=== PATIENT | male | born 1950 | race African-American/Black ===

== ENCOUNTER 2016-06-03 16:46 | Emergency (ER) | payer MEDICARE ==
--- NOTE | 2016-06-03 17:46 | ER Document Report ---
ED Medical Screen (RME) - General Chief Complaint: Shoulder Pain Stated Complaint: HEADACHE Time seen by provider: 17:40 Mode of Arrival: Wheelchair Information source: Patient Notes: 65 yo male called EMS because he had a 2 sharp electrical sensations behind his right ear and it scared him because he had numbness in his right arm.. As a new defibrillator placed this year May 23. He was wondering if those electrical sensations were due to the defibrillator going off. They checked his blood pressure which was 210/120 and his blood sugar was 425 after he ate jane char, a donut, 2 glasses of sweet tea. The only painthat is bothering him now is his left shoulder due to rotator cuff problems. I have greeted and performed a rapid initial assessment of this patient. A comprehensive ED assessment, evaluation of the patient, analysis of test results , and completion of the medical decision making process will be conducted by additional ED providers. I have consulted with the supervisory physician [facility] Guidelines. dr. newton for CT TRAVEL OUTSIDE OF THE [place] IN LAST 30 DAYS: No - Related Data Allergies/Adverse Reactions: Penicillins Allergy (Intermediate, Verified 01/01/16 12:14) swelling Past Medical History - Past Medical History Cardiac Medical History: Reports: Hx Congestive Heart Failure - Chronic systolic , Hx Hypercholesterolemia, Hx Hypertension Denies: Hx Coronary Artery Disease, Hx Heart Attack Pulmonary Medical History: Denies: Hx Asthma, Hx Bronchitis, Hx COPD, Hx Pneumonia, Hx Tuberculosis Neurological Medical History: Denies: Hx Cerebrovascular Accident, Hx Seizures Endocrine Medical History: Reports: Hx Diabetes Mellitus Type 2 Musculoskeltal Medical History: Denies Hx Arthritis Psychiatric Medical History: Denies: Hx Depression Past Surgical History: Denies: Hx Pacemaker - Immunizations Hx Diphtheria, Pertussis, Tetanus Vaccination: Yes Physical Exam - Vital signs Vitals: Temp Pulse Resp BP Pulse Ox 97.9 F 78 18 154/90 H 99 06/03/16 16:58 06/03/16 16:58 06/03/16 16:58 06/03/16 16:58 06/03/16 16:58 Course - Vital Signs Vital signs: Temp Pulse Resp BP Pulse Ox 97.9 F 78 18 154/90 H 99 06/03/16 16:58 06/03/16 16:58 06/03/16 16:58 06/03/16 16:58 06/03/16 16:58
--- NOTE | 2016-06-03 19:51 | ER Document Report ---
ED Headache - General Chief Complaint: Shoulder Pain Stated Complaint: HEADACHE Time seen by provider: 19:50 Mode of Arrival: Wheelchair Information source: Patient TRAVEL OUTSIDE OF THE [place] IN LAST 30 DAYS: No - HPI Patient complains to provider of: Other - Fleeting sharp right-sided head pain Onset: Just prior to arrival Onset was: Abrupt Timing: Gone now Quality of pain: Sharp, Stabbing Severity: Moderate Pain Level: Denies Similar symptoms previously: No Recently seen / treated by doctor: Yes Notes: Patient is a 65-year-old male presenting to the emergency room for complaints of 2 sharp electric type in pulse episodes of fleeting pain to the right side of his head that occurred around 3:00 this afternoon, patient reports that he recently had an AICD placed in May 23 and was concerned that possibly the pain could be coming from that, he denies feeling any sensation in his chest, no palpitations, no shortness of breath, the symptoms occurred when he was at rest, he denies having had any symptoms like this previously, he denies any nausea, vomiting or diarrhea, no head injury, at time of my evaluation he states he is feeling perfectly fine and wants to go home - Related Data Allergies/Adverse Reactions: Penicillins Allergy (Intermediate, Verified 01/01/16 12:14) swelling Past Medical History - General Information source: Patient - Social History Smoking Status: Unknown if Ever Smoked Family History: Reviewed & Not Pertinent Patient has suicidal ideation: No Patient has homicidal ideation: No - Past Medical History Cardiac Medical History: Reports: Hx Congestive Heart Failure - Chronic systolic , Hx Hypercholesterolemia, Hx Hypertension Denies: Hx Coronary Artery Disease, Hx Heart Attack Pulmonary Medical History: Denies: Hx Asthma, Hx Bronchitis, Hx COPD, Hx Pneumonia, Hx Tuberculosis Neurological Medical History: Denies: Hx Cerebrovascular Accident, Hx Seizures Endocrine Medical History: Reports: Hx Diabetes Mellitus Type 2 Renal/ Medical History: Denies: Hx Peritoneal Dialysis Musculoskeltal Medical History: Denies Hx Arthritis Psychiatric Medical History: Denies: Hx Depression Past Surgical History: Denies: Hx Pacemaker - Immunizations Hx Diphtheria, Pertussis, Tetanus Vaccination: Yes Hx Pneumococcal Vaccination: 01/19/11 Review of Systems - Review of Systems Constitutional: No symptoms reported EENT: No symptoms reported Cardiovascular: No symptoms reported Respiratory: No symptoms reported Gastrointestinal: No symptoms reported Genitourinary: No symptoms reported Male Genitourinary: No symptoms reported Musculoskeletal: See HPI Skin: No symptoms reported Hematologic/Lymphatic: No symptoms reported Neurological/Psychological: No symptoms reported -: Yes All other systems reviewed and negative Physical Exam - Vital signs Vitals: Temp Pulse Resp BP Pulse Ox 97.9 F 78 18 154/90 H 99 06/03/16 16:58 06/03/16 16:58 06/03/16 16:58 06/03/16 16:58 06/03/16 16:58 Interpretation: Normal - General General appearance: Appears well, Alert - HEENT Head: Normocephalic, Atraumatic, Other - No tenderness when palpating over the temporal areas, no reproduction of symptoms when palpating over the trigeminal nerve Eyes: Normal Conjunctiva: Normal Extraocular movements intact: Yes Eyelashes: Normal Pupils: PERRL - Respiratory Respiratory status: No respiratory distress Chest status: Other - AICD in left anterior chest wall with healing incision, Dermabond in place over incision, no drainage, no erythema Breath sounds: Normal Chest palpation: Normal - Cardiovascular Rhythm: Regular Heart sounds: Normal auscultation Murmur: No - Abdominal Inspection: Normal Distension: No distension Bowel sounds: Normal Tenderness: Nontender Organomegaly: No organomegaly - Back Back: Normal, Nontender - Extremities General upper extremity: Normal inspection, Nontender, Normal color, Normal ROM , Normal temperature General lower extremity: Normal inspection, Nontender, Normal color, Normal ROM , Normal temperature, Normal weight bearing. No: Nacho's sign - Neurological Neuro grossly intact: Yes Cognition: Normal Orientation: AAOx4 [place] Coma Scale Eye Opening: Spontaneous [place] Coma Scale Verbal: Oriented Fransisca Coma Scale Motor: Obeys Commands Fransisca Coma Scale Total: 15 Speech: Normal Motor strength normal: LUE, RUE, LLE, RLE Sensory: Normal - Psychological Associated symptoms: Normal affect, Normal mood - Skin Skin Temperature: Warm Skin Moisture: Dry Skin Color: Normal Course - Re-evaluation Re-evalutation: 06/04/16 04:46 Imaging findings were discussed with patient and family members at bedside, they were relieved to hear that there were no acute findings, patient reports feeling much better, his symptoms were fleeting and occurred earlier in the day , he was discharged with instructions to follow-up with his primary care provider, he has a follow up with his mechanic/welder in the morning, advised to keep this appointment or return if symptoms worsen, patient and family members acknowledge understanding and agreement with this plan - Vital Signs Vital signs: Temp Pulse Resp BP Pulse Ox 98.0 F 70 18 132/82 H 98 06/03/16 19:58 06/03/16 19:58 06/03/16 19:58 06/03/16 19:58 06/03/16 19:58 - Diagnostic Test Radiology reviewed: Image reviewed, Reports reviewed Discharge - Discharge Clinical Impression: Headache Qualifiers: Headache type: unspecified Headache chronicity pattern: acute headache Intractability: not intractable Qualified Code(s): R51 - Headache Condition: Stable Disposition: HOME, SELF-CARE Instructions: Headache ([facility]) Additional Instructions: Follow up with your primary care provider and your mechanic/welder in one to 2 days. Return to the emergency room immediately if symptoms worsen or any additional concerns. Referrals: LEXUS GARCIA MD [Primary Care Provider] - Follow up as needed
[2016-06-03 19:59] VITALS: BP 132/82
--- NOTE | 2016-06-03 21:52 | EKG REPORT ---
SEVERITY:- ABNORMAL ECG - SINUS RHYTHM PROBABLE LEFT ATRIAL ABNORMALITY LVH WITH IVCD AND SECONDARY REPOL ABNRM : Confirmed by: Grace Baker 03-Jun-2016 21:52:06
== END 2016-06-03 20:00 | disposition home or self-care (01) ==
LOC: ER 16:46
DX: R51 Headache (principal); I10 Essential (primary) hypertension; E11.9 Type 2 diabetes mellitus without complications; Z98.890 Other specified postprocedural states; Z95.810 Presence of automatic (implantable) cardiac defibrillator; Z88.0 Allergy status to penicillin
CPT/HCPCS: 70450; 71010; 93005; 93010; 99284

== ENCOUNTER 2016-09-12 15:56 | Inpatient (IN) | payer MEDICARE ==
--- NOTE | 2016-09-12 16:32 | ER Document Report ---
ED GI/ - General Mode of Arrival: Ambulatory Information source: Patient, Relative TRAVEL OUTSIDE OF THE [place].S. IN LAST 30 DAYS: No - HPI Patient complains to provider of: Vomiting Onset: Other - x3-4 days Recently seen / treated by doctor: Yes <JOSELIN MONTENEGRO - Last Filed: 09/12/16 16:32> - HPI Quality of pain: No pain <BRITTANI ZAPATA - Last Filed: 09/12/16 18:43> - General Chief Complaint: Altered Mental Status Stated Complaint: ALTERED MENTAL STATUS Time Seen by Provider: 09/12/16 16:01 Notes: Patient is a 66 year old male that presents to the emergency department today with complaints of vomiting and generalized weakness over the last 3-4 days. at bedside states that his urine is "the color of tea". states the patient has not been eating. EMS had a temperature of 101 prior to arrival. states the patient has an outpatient MRI scheduled for tomorrow in [place] secondary to "Nerve III Palsy". (JOSELIN MONTENEGRO) - Related Data Allergies/Adverse Reactions: Penicillins Allergy (Intermediate, Verified 01/01/16 12:14) swelling Past Medical History - General Information source: Patient - Social History Smoking Status: Unknown if Ever Smoked Frequency of alcohol use: None Drug Abuse: None Lives with: Family Family History: Reviewed & Not Pertinent - Past Medical History Cardiac Medical History: Reports: Hx Congestive Heart Failure - Chronic systolic , Hx Hypercholesterolemia, Hx Hypertension Endocrine Medical History: Reports: Hx Diabetes Mellitus Type 2 Surgical Hx: Negative - Immunizations Hx Diphtheria, Pertussis, Tetanus Vaccination: Yes Hx Pneumococcal Vaccination: 01/19/11 <JOSELIN MONTENEGRO - Last Filed: 09/12/16 16:32> Review of Systems - Review of Systems Constitutional: See HPI, Fever, Weakness EENT: No symptoms reported Cardiovascular: No symptoms reported Respiratory: No symptoms reported Gastrointestinal: See HPI, Nausea, Vomiting. denies: Diarrhea Genitourinary: No symptoms reported Male Genitourinary: No symptoms reported Musculoskeletal: No symptoms reported Skin: No symptoms reported Hematologic/Lymphatic: No symptoms reported Neurological/Psychological: No symptoms reported -: Yes All other systems reviewed and negative <JOSELIN MONTENEGRO - Last Filed: 09/12/16 16:32> Physical Exam - Vital signs Interpretation: Hypotensive, Tachypneic - General General appearance: Lethargic In distress: Severe - HEENT Head: Normocephalic, Atraumatic Extraocular movements intact: Yes Eyelashes: Normal Mucous membranes: Dry - Respiratory Respiratory status: Respiratory distress, Labored Breath sounds: Decreased air movement - b/l bases - Cardiovascular Rhythm: Regular - Abdominal Inspection: Normal Distension: No distension Tenderness: Nontender - Rectal Tenderness: No Stool: Black Hemorrhoids: None - Genitourinary Inspection: Normal Tenderness: Nontender Scrotum: Normal - Back Back: Normal, Nontender - Extremities General upper extremity: Normal inspection, Normal ROM General lower extremity: Normal inspection, Normal ROM - Neurological Cognition: Confused Ewing Coma Scale Eye Opening: To Voice Ewing Coma Scale Verbal: Confused [place] Coma Scale Motor: Obeys Commands Fransisca Coma Scale Total: 13 Motor strength normal: LUE, RUE, LLE, RLE - Psychological Associated symptoms: Normal affect - Skin Skin Temperature: Warm Skin Moisture: Dry Skin Color: Normal <BRITTANI ZAPATA - Last Filed: 09/12/16 18:43> - Vital signs Vitals: Resp 18 09/12/16 17:01 Course <JOSELIN MONTENEGRO - Last Filed: 09/12/16 16:32> - Laboratory Result Diagrams: 09/12/16 16:50 09/12/16 16:50 - Diagnostic Test Radiology reviewed: Image reviewed, Reports reviewed - EKG Interpretation by Tx EKG shows normal: Sinus rhythm Rate: Normal Rhythm: NSR - Consults Dr. Torres Consulted provider: will see as inpatient <BRITTANI ZAPATA - Last Filed: 09/12/16 18:43> - Re-evaluation Re-evalutation: 09/12/16 18:29 Patient is a 66-year-old male who comes in with altered mental status, hypotension, vomiting for the last 3 days, dark urine. Patient is anemic compared to his last set of blood work. states that vomitus was coffee- ground for the last day. Hemoccult was sent and it is positive. Patient was discussed with Dr. torres who will be able to scope the patient tomorrow. More concerning, the patient is in acute renal failure likely due to dehydration. He has a Sullivan catheter in place and he is producing urine. Patient does not have any abdominal pain or tenderness at this time. His abdomen is soft. CT abdomen and pelvis is not showing any acute findings. CT chest however is showing probable bilateral opacities in his bases. Antibiotics have been ordered and cultures have been sent. Patient has been fluid resuscitated here in the emergency department. Her tonics have been given. Patient has been typed and crossed. Patient will be admitted to the ICU under the hospitalist service. agrees with this plan. Mentation is improved at this time. No acute findings on head CT. No acute findings on neurologic exam. (BRITTANI ZAPATA) - Vital Signs Vital signs: Temp Pulse Resp BP Pulse Ox 23 H 112/62 100 09/12/16 18:31 09/12/16 18:31 09/12/16 18:31 - Laboratory Laboratory results interpreted by me: 09/12/16 09/12/16 09/12/16 16:50 16:50 16:50 WBC 14.5 H RBC 3.01 L Hgb 8.7 L Hct 25.8 L Plt Count 125 L Seg Neuts % (Manual) 84 H Band Neutrophils % 2 L Lymphocytes % (Manual) 7 L Abs Neuts (Manual) 12.5 H PT 16.1 H Sodium 130.0 L Chloride 96 L Carbon Dioxide 17 L BUN 110 H Creatinine 4.82 H Est GFR ( Amer) 15 L Est GFR (Non-Af Amer) 12 L Glucose 334 H Lactic Acid Calcium 8.1 L Direct Bilirubin 0.9 H AST 101 H Total Protein 5.9 L Albumin 2.9 L Urine Protein Urine Blood 09/12/16 09/12/16 16:50 17:05 WBC RBC Hgb Hct Plt Count Seg Neuts % (Manual) Band Neutrophils % Lymphocytes % (Manual) Abs Neuts (Manual) PT Sodium Chloride Carbon Dioxide BUN Creatinine Est GFR ( Amer) Est GFR (Non-Af Amer) Glucose Lactic Acid 2.3 H Calcium Direct Bilirubin AST Total Protein Albumin Urine Protein 100 H Urine Blood SMALL H - EKG Interpretation by Me Additional EKG results interpreted by me: 09/12/16 18:42 prolonged QTc (BRITTANI ZAPATA) - Transfer of Care Notes: 09/12/16 18:06 will admit (BRITTANI ZAPATA) Critical Care Note - Critical Care Note Total time excluding time spent on procedures (mins): 120 - Evaluation and management of altered mental status, hypotension, bilateral pneumonia, coordination specialist, coordination of admission, counseling patient and family, multiple re-evaluations <BRITTANI ZAPATA - Last Filed: 09/12/16 18:43> Discharge <JOSELIN MONTENEGRO - Last Filed: 09/12/16 16:32> - Discharge Admitting Provider: Hospitalist - [facility] Admitted: ICU <BRITTANI ZAPATA - Last Filed: 09/12/16 18:43> - Discharge Clinical Impression: Coffee ground emesis, Dehydration, SIRS (systemic inflammatory response syndrome) Acute renal failure Qualifiers: Acute renal failure type: unspecified Qualified Code(s): N17.9 - Acute kidney failure, unspecified Hypotension Qualifiers: Hypotension type: unspecified hypotension type Qualified Code(s): I95.9 - Hypotension, unspecified Pneumonia Qualifiers: Pneumonia type: due to unspecified organism Laterality: bilateral Lung location : lower lobe of lung Qualified Code(s): J18.9 - Pneumonia, unspecified organism Condition: Fair Disposition: ADMITTED INPATIENT Referrals: LEXUS GARCIA MD [EMERITUS] - Follow up as needed Scribe Attestation: 09/12/16 18:42 I personally performed the services described in the documentation, reviewed and edited the documentation which was dictated to the scribe in my presence, and it accurately records my words and actions. (BRITTANI ZAPATA) Scribe Documentation - Scribe Written by Annalee:: Annalee Bonilla, 09/12/16 1631 acting as scribe for :: Devante <JOSELIN MONTENEGRO - Last Filed: 09/12/16 16:32>
[2016-09-12] MEDS ORDERED: NORMAL SALINE 1000 ML 1,000 ML IV ONE (16:33)
[2016-09-12] MEDS ORDERED: ONDANSETRON HCL INJ/PF 4 MG/2 ML SDV IV ONE (16:33)
--- NOTE | 2016-09-12 16:50 | RADIOLOGY REPORT (SQ) ---
EXAM DESCRIPTION: CHEST SINGLE VIEW COMPLETED DATE/TIME: 09/12/2016 4:35 pm REASON FOR STUDY: AMS COMPARISON: 06/03/2016 EXAM PARAMETERS: NUMBER OF VIEWS: One view. TECHNIQUE: Single frontal radiographic view of the chest acquired. RADIATION DOSE: NA LIMITATIONS: None. FINDINGS: LUNGS AND PLEURA: No opacities, masses or pneumothorax. No pleural effusion. MEDIASTINUM AND HILAR STRUCTURES: No masses. Contour normal. HEART AND VASCULAR STRUCTURES: Heart normal in size. Normal vasculature. BONES: No acute findings. HARDWARE: Cardiac hardware unchanged. OTHER: No other significant finding. IMPRESSION: NO ACUTE RADIOGRAPHIC FINDING IN THE CHEST. TECHNICAL DOCUMENTATION: JOB ID: [id number]
[2016-09-12] MEDS ORDERED: LIDOCAINE 2% URO-JET 5 ML KIT MM ONE (17:01)
[2016-09-12 17:15] LABS: HEMATOCRIT 25.8 % (37.9-51.0); HEMOGLOBIN 8.7 g/dL (13.5-17.0); HGB HCT DIFFERENCE 0.3; MEAN CORPUSCULAR HEMOGLOBIN 28.9 pg (27.0-33.4); MEAN CORPUSCULAR HGB CONC 33.7 g/dL (32.0-36.0); MEAN CORPUSCULAR VOLUME 86 fl (80-97); RED BLOOD COUNT 3.01 10^6/uL (4.35-5.55); RED CELL DISTRIBUTION WIDTH 13.9 % (11.5-14.0); WHITE BLOOD COUNT 14.5 10^3/uL (4.0-10.5)
[2016-09-12 17:27] LABS: PROTHROMBIN TIME 16.1 SEC (11.4-15.4)
[2016-09-12 17:33] LABS: ALANINE AMINOTRANSFERASE 62 U/L (21-72); ALBUMIN 2.9 g/dL (3.5-5.0); ALKALINE PHOSPHATASE 113 U/L (38-126); ANION GAP 17 (5-19); ASPARTATE AMINO TRANSFERASE 101 U/L (17-59); BILIRUBIN,DIRECT 0.9 mg/dL (0.0-0.4); BILIRUBIN,TOTAL 1.2 mg/dL (0.2-1.3); BLOOD UREA NITROGEN 110 mg/dL (7-20); CALCIUM 8.1 mg/dL (8.4-10.2); CARBON DIOXIDE 17 mmol/L (22-30); CHLORIDE 96 mmol/L (98-107); CREATININE RESULT 4.82 mg/dL (0.52-1.25); GLUCOSE 334 mg/dL (75-110); POTASSIUM 3.8 mmol/L (3.6-5.0); TOTAL PROTEIN 5.9 g/dL (6.3-8.2)
[2016-09-12 17:37] LABS: BAND NEUTROPHILS % (MANUAL) 2 % (3-5); BASOPHILS % (MANUAL) 0 % (0-2); EOSINOPHILS % (MANUAL) 0 % (0-6); LYMPHOCYTES % (MANUAL) 7 % (13-45); TOTAL CELLS COUNTED 100
[2016-09-12 17:39] LABS: PLATELET CLUMPS PRESENT; POLYCHROMASIA SLIGHT; TOXIC GRANULATION SLIGHT; TOXIC VACUOLATION PRESENT
[2016-09-12 17:43] LABS: AMORPHOUS SEDIMENT,URINE TRACE /HPF; APPEARANCE,URINE SLIGHTLY-CLOUDY; BILIRUBIN,URINE NEGATIVE (NEGATIVE); GLUCOSE, URINE NEGATIVE (NEGATIVE); KETONES,URINE NEGATIVE (NEGATIVE); LEUKOCYTE ESTERASE,URINE NEGATIVE (NEGATIVE); NITRITE,URINE NEGATIVE (NEGATIVE); PROTEIN,URINE 100 mg/dL (NEGATIVE); URINE SPECIFIC GRAVITY 1.011; UROBILINOGEN,URINE NEGATIVE mg/dL (<2.0)
[2016-09-12] MEDS ORDERED: RINGERS SOLUTION,LACTATED 1,000 ML IV ONE (17:45)
--- NOTE | 2016-09-12 17:59 | RADIOLOGY REPORT (SQ) ---
EXAM DESCRIPTION: CT HEAD WITHOUT COMPLETED DATE/TIME: 09/12/2016 5:40 pm REASON FOR STUDY: AMS COMPARISON: 06/03/2016 TECHNIQUE: Axial images acquired through the brain without intravenous contrast. Images reviewed wi th bone, brain and subdural windows. Images stored on PACS. All CT scanners at this facility use dose modulation, iterative reconstruction, and/or weight based d osing when appropriate to reduce radiation dose to as low as reasonably achievable (ALARA). [facility]: Dose Right [facility]: CareDose [facility]: Dose Right [facility]: Teradose 4D [facility]: [employer] RADIATION DOSE: 129.22 mGy. LIMITATIONS: None. FINDINGS: VENTRICLES: Normal size and contour. CEREBRUM: No masses. No hemorrhage. No midline shift. Normal aguilar/white matter differentiation. N o evidence for acute infarction. There is an area of decreased attenuation in the occipital white ma tter on the right. This is unchanged from a study of 06/03/2016. CEREBELLUM: No masses. No hemorrhage. No alteration of density. No evidence for acute infarction. EXTRAAXIAL SPACES: No fluid collections. No masses. ORBITS AND GLOBE: No intra- or extraconal masses. Normal contour of globe without masses. CALVARIUM: No fracture. PARANASAL SINUSES: No fluid or mucosal thickening. SOFT TISSUES: No mass or hematoma. OTHER: No other significant finding. IMPRESSION: There is evidence of chronic microvascular ischemic change characterized by a decreased attenuation in the white matter of the right occipital lobe. There is no significant interval change . No acute intracranial pathology is seen. TECHNICAL DOCUMENTATION: JOB ID: [id number] 06/03/2016 Quality ID # [id number]: Final reports with documentation of one or more dose reduction techniques (e.g., Au tomated exposure control, adjustment of the mA and/or kV according to patient size, use of iterative reconstruction technique) 2010 [employer]- All Rights Reserved
[2016-09-12] MEDS ORDERED: PANTOPRAZOLE SODIUM 40 MG VIAL IV ONE (18:03)
--- NOTE | 2016-09-12 18:07 | RADIOLOGY REPORT (SQ) ---
EXAM DESCRIPTION: CT CHEST WITHOUT COMPLETED DATE/TIME: 09/12/2016 5:39 pm REASON FOR STUDY: fever, pain , n/v COMPARISON: 01/16/2014 TECHNIQUE: CT scan performed of the chest without intravenous contrast. Images reviewed with lung, soft tissue and bone windows. Reconstructed coronal and sagittal MPR images reviewed. All images st ored on PACS. All CT scanners at this facility use dose modulation, iterative reconstruction, and/or weight based d osing when appropriate to reduce radiation dose to as low as reasonably achievable (ALARA). [facility]: Dose Right [facility]: CareDose [facility]: Dose Right [facility]: Teradose 4D [facility]: [employer] RADIATION DOSE: 10.00 mGy. LIMITATIONS: No technical limitations. FINDINGS: LUNGS AND PLEURA: There is ground-glass opacification in both lower lobes. No masses are present. There is no pleural effusion. HILAR AND MEDIASTINAL STRUCTURES: No identified masses or abnormal nodes. No obvious aneurysm. HEART AND VASCULAR STRUCTURES: There is a small pericardial effusion. This measures 8 mm in depth an teriorly on image 42. UPPER ABDOMEN: See separate report of the CT of the abdomen. THYROID AND OTHER SOFT TISSUES: No masses. No adenopathy. BONES: Degenerative disc changes and spondylosis are seen in the lumbar spine from L2-L4. HARDWARE: Pacemaker. OTHER: No other significant findings. IMPRESSION: 1. There is ground-glass opacification in both lower lobes suggestive of bilateral pneu monitis. 2. Degenerative disc changes and spondylosis in the lower lumbar spine. 3. There is a small pericardial effusion. TECHNICAL DOCUMENTATION: JOB ID: [id number] Quality ID # [id number]: Final reports with documentation of one or more dose reduction techniques (e.g., Au tomated exposure control, adjustment of the mA and/or kV according to patient size, use of iterative reconstruction technique) 2010 [employer]- All Rights Reserved
[2016-09-12] MEDS ORDERED: LEVOFLOXACIN 750 MG/D5W RTU 150 ML IV ONE (18:10)
[2016-09-12] MEDS ORDERED: CEFEPIME 2 GM/D5W RTU 50 ML IV ONE (18:10)
--- NOTE | 2016-09-12 18:15 | RADIOLOGY REPORT (SQ) ---
EXAM DESCRIPTION: CT ABD/PELVIS NO ORAL OR IV COMPLETED DATE/TIME: 09/12/2016 5:40 pm REASON FOR STUDY: fever, pain , n/v COMPARISON: None. TECHNIQUE: CT scan of the abdomen and pelvis performed without intravenous or oral contrast. Images reviewed with lung, soft tissue, and bone windows. Reconstructed coronal and sagittal MPR images revi ewed. All images stored on PACS. All CT scanners at this facility use dose modulation, iterative reconstruction, and/or weight based d osing when appropriate to reduce radiation dose to as low as reasonably achievable (ALARA). [facility]: Dose Right [facility]: CareDose [facility]: Dose Right [facility]: Teradose 4D [facility]: [employer] RADIATION DOSE: 3.82mGy. LIMITATIONS: None. FINDINGS: LOWER CHEST: See separate report of the CT of the chest. NON-CONTRASTED LIVER, SPLEEN, ADRENALS: Evaluation limited by lack of IV contrast. No identified sign ificant masses. PANCREAS: No masses. No peripancreatic inflammatory changes. GALLBLADDER: Not identified. There is no ductal dilatation. RIGHT KIDNEY AND URETER: No suspicious masses. Assessment limited by lack of IV contrast. No signif icant calcifications. No hydronephrosis or hydroureter. LEFT KIDNEY AND URETER: No suspicious masses. Assessment limited by lack of IV contrast. No signifi cant calcifications. No hydronephrosis or hydroureter. AORTA AND RETROPERITONEUM: No aneurysm. No retroperitoneal masses or adenopathy. BOWEL AND PERITONEAL CAVITY: There are occasional sigmoid diverticula with no associated inflammatory changes. APPENDIX: Normal. PELVIS, BLADDER, AND ABDOMINAL WALL:A catheter is present. The urinary bladder cannot be evaluated. There is no free fluid in the pelvis. There is stool in the rectum. BONES: Lumbar degenerative changes. OTHER: No other significant finding. IMPRESSION: 1. Mild diverticulosis coli with no acute inflammatory changes. 2. Lumbar degenerative changes. TECHNICAL DOCUMENTATION: JOB ID: [id number] Quality ID # [id number]: Final reports with documentation of one or more dose reduction techniques (e.g., Au tomated exposure control, adjustment of the mA and/or kV according to patient size, use of iterative reconstruction technique) 2010 [employer]- All Rights Reserved
[2016-09-12] MEDS ORDERED: ACETAMINOPHEN 325 MG TABLET PO PRN (18:29)
[2016-09-12] MEDS ORDERED: ALBUTEROL SULFATE 0.083% NEB 2.5 MG/3 ML AMPUL NEB PRN (18:29)
[2016-09-12] MEDS ORDERED: ONDANSETRON 4 MG TAB.RAPDIS PO PRN (18:29)
[2016-09-12] MEDS ORDERED: ONDANSETRON HCL INJ/PF 4 MG/2 ML SDV IV PRN (18:29)
[2016-09-12] MEDS ORDERED: NORMAL SALINE 1000 ML 1,000 ML IV PRN (18:29)
[2016-09-12 18:35] LABS: URINE BARBITURATES SCREEN NEGATIVE; URINE METHADONE SCREEN NEGATIVE; URINE OPIATES LOW NEGATIVE; URINE PHENCYCLIDINE SCREEN NEGATIVE
[2016-09-12] MEDS ORDERED: DEXTROSE 50%-WATER 25 GM/50 ML DISP.SYRIN IV PRN ×2 (18:36)
[2016-09-12] MEDS ORDERED: GLUCAGON,HUMAN RECOMB 1 MG INJ IM PRN (18:36)
[2016-09-12] MEDS ORDERED: DEXTROSE 40% GEL 15 GM TUBE PO PRN ×2 (18:36)
[2016-09-12 18:44] LABS: CREATINE KINASE MB 3.35 ng/mL (<4.55)
--- NOTE | 2016-09-12 18:45 | EKG REPORT ---
SEVERITY:- ABNORMAL ECG - SINUS RHYTHM PROBABLE LEFT ATRIAL ABNORMALITY LEFT VENTRICULAR HYPERTROPHY PROLONGED QT INTERVAL : Confirmed by: Yo Foss MD 12-Sep-2016 18:44:08
[2016-09-12 18:47] LABS: TROPONIN I 0.093 ng/mL
--- NOTE | 2016-09-12 18:53 | PDOC H&P ---
History of Present Illness Admission Date/PCP: HYACINTH WELLS MD Patient complains of: Nausea and vomiting since Friday. History of Present Illness: FLAG MORELIA THIBODEAUX is a 66 year old male history of diabetes, systolic congestive heart failure who presents with a four-day history of nausea and vomiting. Patient reports that he began having some epigastric pain and started vomiting on Friday. Patient has had worsening weakness and has had a cough productive of yellow sputum. Patient was found on laboratory work to have acute renal failure, pneumonia and dehydration. The patient denies having any chest pain. He does have a history of systolic congestive heart failure and has a defibrillator in place. The patient has had problems with left 3rd nerve palsy and was scheduled to get an MRI done however he had to go to because of his pacemaker. The patient has had difficulty tolerating any food and his blood sugars have been elevated. He also does have a history of esophagitis but denies using any nonsteroidals. The only he is taken for pain is his Tylenol. His sister who is his caregiver is at the bedside. The patient denies any lower extremity edema. He denies any orthopnea or PND. Past Medical History Cardiac Medical History: Reports: Congestive Heart Failure - Chronic systolic, Hyperlipidema, Hypertension Pulmonary Medical History: Reports: None EENT Medical History: Reports: Other - Diabetic retinopathy Neurological Medical History: Reports: Other - Currently diagnosed with left 3rd nerve palsy. Also has peripheral neuropathy Endocrine Medical History: Reports: Diabetes Mellitus Type 2 Malignancy Medical History: Reports: None GI Medical History: Reports: Gastroesophageal Reflux Disease Musculoskeltal Medical History: Reports: Arthritis Skin Medical History: Reports: None Psychiatric Medical History: Reports: None Traumatic Medical History: Reports: None Hematology: Denies: Anemia Infectious Medical History: Reports: Methicillin-Resistant Staph Aureus Past Surgical History Past Surgical History: Reports: Internal Defibrillator Social History Information Source: Patient Lives with: Family Smoking Status: Current Every Day Smoker Frequency of Alcohol Use: None Hx Recreational Drug Use: No Drugs: None Hx Prescription Drug Abuse: No - Advance Directive Resuscitation Status: Full Code Surrogate healthcare decision maker:: Daughter has healthcare power of attorney lawyer however his sister lives locally and makes most of his healthcare decisions. Family History Family History: Father in his 60s from complications of cirrhosis. Mother at age 72 and had diabetes and hypertension. Parental Family History Reviewed: Yes Children Family History Reviewed: No Sibling(s) Family History Reviewed.: No Medication/Allergy Allergies/Adverse Reactions: Penicillins Allergy (Intermediate, Verified 01/01/16 12:14) swelling Review of Systems Constitutional: PRESENT: chills, fatigue, fever(s), weakness, weight loss. ABSENT: night sweats Eyes: PRESENT: visual disturbances - Recently diagnosed with left 3rd nerve palsy. Cardiovascular: ABSENT: chest pain, dyspnea on exertion, edema, orthropnea, palpitations Respiratory: PRESENT: cough, dyspnea, sputum. ABSENT: hemoptysis Gastrointestinal: PRESENT: abdominal pain - Right lower quadrant abdominal pain. , nausea, vomiting. ABSENT: hematemesis Genitourinary: PRESENT: difficulty urinating Musculoskeletal: PRESENT: muscle weakness Integumentary: PRESENT: other - Diabetic foot ulcers on his bilateral feet. Neurological: PRESENT: other - Recent left 3rd nerve palsy Psychiatric: ABSENT: anxiety, depression Endocrine: ABSENT: cold intolerance, heat intolerance, polydipsia, polyuria Hematologic/Lymphatic: ABSENT: easy bleeding, easy bruising Physical Exam Vital Signs: Temp Pulse Resp BP Pulse Ox 23 H 112/62 100 09/12/16 18:31 09/12/16 18:31 09/12/16 18:31 Intake & Output 09/11/16 09/12/16 09/13/16 06:59 06:59 06:59 Weight 83.915 kg General appearance: PRESENT: mild distress Head exam: PRESENT: atraumatic, normocephalic Eye exam: PRESENT: conjunctiva pink, EOMI, PERRLA. ABSENT: scleral icterus Ear exam: PRESENT: normal external ear exam Mouth exam: PRESENT: dry mucosa, tongue midline Neck exam: ABSENT: carotid bruit, JVD, lymphadenopathy, thyromegaly Respiratory exam: PRESENT: rhonchi - Rhonchi bilaterally.. ABSENT: rales, wheezes Cardiovascular exam: PRESENT: RRR. ABSENT: diastolic murmur, rubs, systolic murmur Pulses: PRESENT: other - Decreased peripheral pulses in the feet. Vascular exam: PRESENT: normal capillary refill GI/Abdominal exam: PRESENT: normal bowel sounds, soft. ABSENT: distended, guarding, mass, organolmegaly, rebound, tenderness Rectal exam: PRESENT: heme (+) stool Extremities exam: ABSENT: calf tenderness, clubbing, pedal edema Neurological exam: PRESENT: awake, oriented to person, oriented to place, oriented to time, CN II-XII grossly intact, motor sensory deficit. ABSENT: oriented to situation Psychiatric exam: PRESENT: other - Patient slightly confused but can reorient. Skin exam: PRESENT: other - Shallow ulcers on the bilateral feet left worse than the right Results Laboratory Results: 09/12/16 16:50 09/12/16 16:50 09/12/16 09/12/16 09/12/16 16:50 16:50 16:50 WBC 14.5 H RBC 3.01 L Hgb 8.7 L Hct 25.8 L MCV 86 MCH 28.9 MCHC 33.7 RDW 13.9 Plt Count 125 L Seg Neutrophils % Not Reportable Lymphocytes % Not Reportable Monocytes % Not Reportable Eosinophils % Not Reportable Basophils % Not Reportable Absolute Neutrophils Not Reportable Absolute Lymphocytes Not Reportable Absolute Monocytes Not Reportable Absolute Eosinophils Not Reportable Absolute Basophils Not Reportable Sodium 130.0 L Potassium 3.8 Chloride 96 L Carbon Dioxide 17 L Anion Gap 17 BUN 110 H Creatinine 4.82 H Est GFR ( Amer) 15 L Est GFR (Non-Af Amer) 12 L Glucose 334 H Lactic Acid 2.3 H Calcium 8.1 L Total Bilirubin 1.2 AST 101 H ALT 62 Alkaline Phosphatase 113 Total Protein 5.9 L Albumin 2.9 L Urine Color Urine Appearance Urine pH Ur Specific [place] Urine Protein Urine Glucose (UA) Urine Ketones Urine Blood Urine Nitrite Ur Leukocyte Esterase Urine WBC (Auto) Urine RBC (Auto) Stool Occult Blood 09/12/16 09/12/16 17:05 17:50 WBC RBC Hgb Hct MCV MCH MCHC RDW Plt Count Seg Neutrophils % Lymphocytes % Monocytes % Eosinophils % Basophils % Absolute Neutrophils Absolute Lymphocytes Absolute Monocytes Absolute Eosinophils Absolute Basophils Sodium Potassium Chloride Carbon Dioxide Anion Gap BUN Creatinine Est GFR ( Amer) Est GFR (Non-Af Amer) Glucose Lactic Acid Calcium Total Bilirubin AST ALT Alkaline Phosphatase Total Protein Albumin Urine Color YELLOW Urine Appearance SLIGHTLY-CLOUDY Urine pH 5.0 Ur Specific [place] 1.011 Urine Protein 100 H Urine Glucose (UA) NEGATIVE Urine Ketones NEGATIVE Urine Blood SMALL H Urine Nitrite NEGATIVE Ur Leukocyte Esterase NEGATIVE Urine WBC (Auto) 1 Urine RBC (Auto) 5 Stool Occult Blood POSITIVE Impressions: Chest X-Ray 09/12/16 16:02 IMPRESSION: NO ACUTE RADIOGRAPHIC FINDING IN THE CHEST. Abdomen/Pelvis CT 09/12/16 16:25 IMPRESSION: 1. Mild diverticulosis coli with no acute inflammatory changes. 2. Lumbar degenerative changes. Chest CT 09/12/16 16:25 IMPRESSION: 1. There is ground-glass opacification in both lower lobes suggestive of bilateral pneumonitis. 2. Degenerative disc changes and spondylosis in the lower lumbar spine. 3. There is a small pericardial effusion. Head CT 09/12/16 16:33 IMPRESSION: There is evidence of chronic microvascular ischemic change characterized by a decreased attenuation in the white matter of the right occipital lobe. There is no significant interval change. No acute intracranial pathology is seen. Assessment & Plan - Diagnosis (1) SIRS (systemic inflammatory response syndrome) Is this a current diagnosis for this admission?: YesPlan: Likely secondary to his underlying pneumonia. He did have an episode of hypotension that did resolve with fluids. (2) Pneumonia Qualifiers: Pneumonia type: due to unspecified organism Laterality: bilateral Lung location: lower lobe of lung Qualified Code(s): J18.9 - Pneumonia, unspecified organism Is this a current diagnosis for this admission?: YesPlan: Patient has bilateral pneumonia on chest x-ray. Will treat with cefepime. (3) Acute renal failure Qualifiers: Acute renal failure type: unspecified Qualified Code(s): N17.9 - Acute kidney failure, unspecified Is this a current diagnosis for this admission?: YesPlan: Patient has an elevated creatinine secondary to his nausea vomiting and dehydration. Will give IV fluids and monitor closely. (4) Dehydration Is this a current diagnosis for this admission?: YesPlan: Secondary to his GI symptoms. Will give IV Reglan, IV fluids, and ask surgery to evaluate for possible EGD in the morning if he does not improve. (5) Diabetes Is this a current diagnosis for this admission?: YesPlan: We will cover with sliding scale insulin. (6) Congestive heart failure Is this a current diagnosis for this admission?: YesPlan: Patient has chronic systolic congestive heart failure. He has had a defibrillator placed by [facility] (7) Peripheral neuropathy Is this a current diagnosis for this admission?: Yes (8) Hyperlipidemia Is this a current diagnosis for this admission?: Yes (9) Coffee ground emesis Is this a current diagnosis for this admission?: YesPlan: Most likely secondary to esophagitis or gastritis. Will give IV Protonix and ask surgery to evaluate for an EGD tomorrow if he continues to have symptoms. (10) Hypotension Qualifiers: Hypotension type: unspecified hypotension type Qualified Code(s): I95.9 - Hypotension, unspecified Is this a current diagnosis for this admission?: YesPlan: This has resolved with IV fluids. (11) Rhabdomyolysis Qualifiers: Rhabdomyolysis type: non-traumatic Qualified Code(s): M62.82 - Rhabdomyolysis Is this a current diagnosis for this admission?: YesPlan: Patient has elevated creatine kinase and will give IV fluids and monitor. (12) HTN (hypertension) Is this a current diagnosis for this admission?: YesPlan: We will hold his antihypertensives until his blood pressure improves with fluids. - Time Time Spent: 50 to 70 Minutes - Inpatient Certification Medical Necessity: Need For IV Fluids, Need for IV Antibiotics - Plan Summary Plan Summary: Admit to the [facility] unit as the patient is anticipated to require greater than 2 midnight stay because of his need for IV fluids and IV antibiotics. Request to be a full code.
[2016-09-12 18:58] LABS: VENOUS BLOOD BASE EXCESS -4.2 mmol/L; VENOUS BLOOD HCO3 19.3 mmol/L (20-32); VENOUS BLOOD PCO2 31.8 mmHg (35-63); VENOUS BLOOD PH 7.4 (7.30-7.42)
[2016-09-12] MEDS: PANTOPRAZOLE SODIUM 40 MG VIAL IV PRN (20:07)
[2016-09-13] MEDS: METOCLOPRAMIDE HCL INJ/PF 10 MG/2 ML SDV IV SCH ×4 (00:40→21:23)
[2016-09-13] MEDS: INSULIN LISPRO 100 UNIT/ML 3 ML VIAL SUBCUT PRN ×2 (00:41→19:21)
[2016-09-13] MEDS: PANTOPRAZOLE SODIUM 40 MG VIAL IV SCH ×3 (00:42→21:23)
[2016-09-13 05:00] LABS: HEMOGLOBIN 8.2 g/dL (13.5-17.0); HGB HCT DIFFERENCE 0.6; MEAN CORPUSCULAR HEMOGLOBIN 29.3 pg (27.0-33.4); MEAN CORPUSCULAR HGB CONC 34.3 g/dL (32.0-36.0); MEAN CORPUSCULAR VOLUME 85 fl (80-97); RED BLOOD COUNT 2.81 10^6/uL (4.35-5.55); RED CELL DISTRIBUTION WIDTH 13.7 % (11.5-14.0); WHITE BLOOD COUNT 12.3 10^3/uL (4.0-10.5)
[2016-09-13 05:32] LABS: ANION GAP 11 (5-19); BLOOD UREA NITROGEN 112 mg/dL (7-20); CALCIUM 7.6 mg/dL (8.4-10.2); CARBON DIOXIDE 20 mmol/L (22-30); CHLORIDE 101 mmol/L (98-107); CREATININE RESULT 4.63 mg/dL (0.52-1.25); GLUCOSE 190 mg/dL (75-110); POTASSIUM 3.8 mmol/L (3.6-5.0); SODIUM 132.4 mmol/L (137-145)
[2016-09-13] MEDS: PANTOPRAZOLE SODIUM 40 MG VIAL IV PRN (05:32)
[2016-09-13 05:45] LABS: CREATINE KINASE 2696 U/L (55-170)
[2016-09-13] MEDS ORDERED: VANCOMYCIN HCL 0 MG in DEXTROSE 5%-WATER 250 ML IV NR (07:15)
[2016-09-13] MEDS ORDERED: CEFEPIME HCL 1 GM in DEXTROSE 5%-WATER 50 ML IV SCH (10:00)
[2016-09-13] MEDS ORDERED: CEFEPIME 1 GM/D5W RTU 1 GM/50 ML RTUPB IV SCH (10:00)
--- NOTE | 2016-09-13 10:18 | PDOC PROGRESS REPORT ---
Subjective Progress Note for:: 09/13/16 Subjective:: Insert bilateral shoulder pain. Patient was noted to have gram-positive cocci growing from blood cultures. Physical Exam Vital Signs: Temp Pulse Resp BP Pulse Ox 99.7 F 73 18 99/52 L 95 09/13/16 07:49 09/13/16 08:19 09/13/16 08:19 09/13/16 07:49 09/13/16 08:19 Intake & Output 09/12/16 09/13/16 09/14/16 06:59 06:59 06:59 Intake Total 1390 Output Total 325 Balance 1065 Weight 88.5 kg General appearance: PRESENT: no acute distress Eye exam: PRESENT: conjunctiva pink. ABSENT: scleral icterus Mouth exam: PRESENT: dry mucosa, tongue midline Neck exam: ABSENT: JVD Respiratory exam: PRESENT: rhonchi - Rhonchi bilaterally. ABSENT: rales, wheezes Cardiovascular exam: PRESENT: RRR. ABSENT: diastolic murmur, rubs, systolic murmur GI/Abdominal exam: PRESENT: normal bowel sounds, soft. ABSENT: distended, guarding, mass, organolmegaly, rebound, tenderness Extremities exam: PRESENT: other - There is on bilateral feet. ABSENT: calf tenderness, clubbing, pedal edema Neurological exam: PRESENT: alert, awake, oriented to person, oriented to place , oriented to time, oriented to situation, CN II-XII grossly intact. ABSENT: motor sensory deficit Psychiatric exam: PRESENT: flat affect Skin exam: PRESENT: other - Ulcers on bilateral feet. Results Laboratory Results: 09/13/16 04:04 09/13/16 04:04 09/12/16 09/12/16 09/12/16 18:44 18:44 19:30 WBC RBC Hgb Hct MCV MCH MCHC RDW Plt Count VBG pH 7.40 VBG pCO2 31.8 L VBG HCO3 19.3 L VBG Base Excess -4.2 Sodium Potassium Chloride Carbon Dioxide Anion Gap BUN Creatinine Est GFR ( Amer) Est GFR (Non-Af Amer) Glucose Lactic Acid Calcium Magnesium Blood Type Cancelled B POSITIVE Antibody Screen Cancelled NEGATIVE 09/12/16 09/13/16 09/13/16 21:25 04:04 04:04 WBC 12.3 H RBC 2.81 L Hgb 8.2 L Hct 24.0 L MCV 85 MCH 29.3 MCHC 34.3 RDW 13.7 Plt Count 121 L VBG pH VBG pCO2 VBG HCO3 VBG Base Excess Sodium 132.4 L Potassium 3.8 Chloride 101 Carbon Dioxide 20 L Anion Gap 11 BUN 112 H Creatinine 4.63 H Est GFR ( Amer) 16 L Est GFR (Non-Af Amer) 13 L Glucose 190 H Lactic Acid 1.3 Calcium 7.6 L Magnesium 2.0 Blood Type Antibody Screen 09/13/16 09/13/16 04:04 04:04 Creatine Kinase 2696 H CK-MB (CK-2) 5.67 H Impressions: Chest X-Ray 09/12/16 16:02 IMPRESSION: NO ACUTE RADIOGRAPHIC FINDING IN THE CHEST. Abdomen/Pelvis CT 09/12/16 16:25 IMPRESSION: 1. Mild diverticulosis coli with no acute inflammatory changes. 2. Lumbar degenerative changes. Chest CT 09/12/16 16:25 IMPRESSION: 1. There is ground-glass opacification in both lower lobes suggestive of bilateral pneumonitis. 2. Degenerative disc changes and spondylosis in the lower lumbar spine. 3. There is a small pericardial effusion. Head CT 09/12/16 16:33 IMPRESSION: There is evidence of chronic microvascular ischemic change characterized by a decreased attenuation in the white matter of the right occipital lobe. There is no significant interval change. No acute intracranial pathology is seen. Assessment & Plan - Diagnosis (1) SIRS (systemic inflammatory response syndrome) Is this a current diagnosis for this admission?: YesPlan: Likely secondary to his underlying pneumonia. He did have an episode of hypotension that did resolve with fluids. Patient now is growing gram-positive cocci from his blood cultures. Will add on vancomycin to the cefepime. (2) Pneumonia Qualifiers: Pneumonia type: due to unspecified organism Laterality: bilateral Lung location: lower lobe of lung Qualified Code(s): J18.9 - Pneumonia, unspecified organism Is this a current diagnosis for this admission?: YesPlan: Patient has bilateral pneumonia on chest x-ray. Will treat with cefepime and vancomycin (3) Acute renal failure Qualifiers: Acute renal failure type: unspecified Qualified Code(s): N17.9 - Acute kidney failure, unspecified Is this a current diagnosis for this admission?: YesPlan: Patient has an elevated creatinine secondary to his nausea vomiting and dehydration. Creatinine has barely improved in spite of aggressive IV hydration. Will give another liter of normal saline and ask nephrology for consultation. (4) Dehydration Is this a current diagnosis for this admission?: YesPlan: Secondary to his GI symptoms. Will give IV Reglan, IV fluids (5) Diabetes Is this a current diagnosis for this admission?: YesPlan: We will cover with sliding scale insulin. (6) Congestive heart failure Is this a current diagnosis for this admission?: YesPlan: Patient has chronic systolic congestive heart failure. He has had a defibrillator placed by [facility] (7) Peripheral neuropathy Is this a current diagnosis for this admission?: Yes (8) Hyperlipidemia Is this a current diagnosis for this admission?: Yes (9) Coffee ground emesis Is this a current diagnosis for this admission?: YesPlan: Hemoglobin has remained stable. Will defer to surgery whether or not this patient needs an EGD today. (10) Hypotension Qualifiers: Hypotension type: unspecified hypotension type Qualified Code(s): I95.9 - Hypotension, unspecified Is this a current diagnosis for this admission?: YesPlan: This has resolved with IV fluids. (11) Rhabdomyolysis Qualifiers: Rhabdomyolysis type: non-traumatic Qualified Code(s): M62.82 - Rhabdomyolysis Is this a current diagnosis for this admission?: YesPlan: Continue to monitor creatine kinase (12) HTN (hypertension) Is this a current diagnosis for this admission?: YesPlan: We will hold his antihypertensives until his blood pressure improves with fluids. - Time Time Spent with patient: 25-34 minutes - Inpatient Certification Medical Necessity: Need For IV Fluids, Need for IV Antibiotics
[2016-09-13] MEDS: OXYCODONE HCL IR 5 MG TABLET PO PRN ×2 (10:33→15:26)
[2016-09-13] MEDS: VANCOMYCIN HCL 1,000 MG in DEXTROSE 5%-WATER 250 ML IV SCH (10:34)
[2016-09-13] MEDS: NORMAL SALINE 1000 ML 1,000 ML IV PRN (10:34)
[2016-09-13] MEDS ORDERED: ONDANSETRON HCL INJ/PF 4 MG/2 ML SDV ONE (11:24)
[2016-09-13] MEDS ORDERED: EPINEPHRINE INJ 1 MG/10 ML DISP.SYRIN ONE (11:25)
[2016-09-13] MEDS ORDERED: NALOXONE HCL INJ/PF 0.4 MG/1 ML SDV ONE (11:25)
[2016-09-13] MEDS ORDERED: MIDAZOLAM 2 MG/2 ML INJ ONE (11:25)
[2016-09-13] MEDS ORDERED: FENTANYL CITRATE INJ/PF 100 MCG/2 ML AMPUL ONE (11:25)
[2016-09-13] MEDS ORDERED: FLUMAZENIL INJ 0.5 MG/5 ML VIAL IV ONE (11:25)
[2016-09-13] MEDS ORDERED: GLUCAGON,HUMAN RECOMB 1 MG INJ ONE (11:26)
[2016-09-13 12:34] LABS: ANION GAP 13 (5-19); BLOOD UREA NITROGEN 112 mg/dL (7-20); CALCIUM 7.1 mg/dL (8.4-10.2); CARBON DIOXIDE 17 mmol/L (22-30); CHLORIDE 104 mmol/L (98-107); CREATININE RESULT 4.09 mg/dL (0.52-1.25); GLUCOSE 184 mg/dL (75-110); MAGNESIUM 1.9 mg/dL (1.6-2.3); POTASSIUM 3.4 mmol/L (3.6-5.0)
--- NOTE | 2016-09-13 12:45 | Operative Report ---
Operative Report DATE OF SURGERY: 09/13/16 PREOPERATIVE DIAGNOSIS: 1. Retching, nausea and vomiting. 2. Anemia POSTOPERATIVE DIAGNOSIS: Diffuse circumferential acute and chronic esophagitis with superficial ulceration. Mild proximal gastritis OPERATION: 2. Biopsies of gastric antrum, mid to distal esophagus 2. 1. Esophagogastroduodenoscopy SURGEON: SHONDA HOOD ANESTHESIA: Moderate Sedation TISSUE REMOVED OR ALTERED: Mucosal biopsies COMPLICATIONS: None ESTIMATED BLOOD LOSS: Scant scant INTRAOPERATIVE FINDINGS: See below PROCEDURE: The patient was taken from the floor to the endoscopy suite where monitoring devices were attached. Of note the patient was very somnolent but arousable and follows simple commands. The patient's vital signs were stable. Surgical plan and surgical timeout was conducted. The patient received topical mucosal lidocaine spray; no sedation or analgesic provided. The flexible upper endoscopy was performed by inserting the esophagus scope through the hypopharynx, down the esophagus into the stomach and then into the duodenum. This was an excellent study, and well tolerated by the patient. The duodenum was normal. There is no evidence of bleeding stricture or polyp or clot the scope was brought back to the pylorus which was normal. Stomach had no retained gastric contents. There was no evidence of tumor stricture or bleeding. There was mild proximal esophagitis. There was no evidence of hiatal hernia. The Z line was at approximately 40 cm from the incisors. From 25 cm down to 40 cm from the incisor gas was acutely and chronically inflamed with extensive exudate. This was a circumferential process. There was mild erosive components , but no full-thickness erosion, or mass-effect. There was no active bleeding. Multiple photos were taken into random biopsies were obtained of the mid to distal esophagus. It is a stricture. The remainder of esophagoscopy was unremarkable, specifically the upper third of the esophagus showed no such erosive process. The hypopharynx is unremarkable. Patient tolerated procedure well. Esophagoscope was removed from the patient's oropharynx. There were no complications. Endoscopic findings shared with patient and family and medical team.
--- NOTE | 2016-09-13 15:48 | PDOC CONSULTATION ---
Consultation Consult Date: 09/13/16 Consult reason:: Acute kidney injury, acute rhabdomyolysis History of Present Illness Admission Date/PCP: 09/12/16 18:29 HYACINTH WELLS MD History of Present Illness: FLAG MORELIA THIBODEAUX is a 66 year old male history of diabetes, systolic congestive heart failure who presents with a four-day history of nausea and vomiting. Patient reports that he began having some epigastric pain and started vomiting on Friday. No history of any diarrhea or saray hematemesis or hematochezia. Patient has had worsening weakness and has had a cough productive of yellow sputum. He denies any history of fever chills or riders. He denies any severe pain or swelling over his defibrillator.Evaluations done so far reveals that the patient is in acute renal failure, has acute rhabdo and also has possible bilateral pneumonia . The patient denies having any chest pain. He does have a history of systolic congestive heart failure and has a defibrillator in place. The patient has had problems with left 3rd nerve palsy and was scheduled to get an MRI done however he had to go to [place] because of his pacemaker. The patient has had difficulty tolerating any food and his blood sugars have been elevated. He also does have a history of esophagitis but denies using any nonsteroidals. The only he is taken for pain is his Tylenol. Past Medical History Cardiac Medical History: Reports: Hyperlipidemia Pulmonary Medical History: Reports: None EENT Medical History: Reports: Other - Diabetic retinopathy Neurological Medical History: Reports: Other - Currently diagnosed with left 3rd nerve palsy. 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 Past Surgical History Past Surgical History: Reports: Internal Defibrillator Social History Lives with: Family Smoking Status: Current Every Day Smoker Cigarettes Packs Per Day: 1 Number of Years Smokin Frequency of Alcohol Use: None Hx Recreational Drug Use: No Drugs: None Hx Prescription Drug Abuse: No - Advance Directive Resuscitation Status: Full Code Family History Parental Family History Reviewed: Yes - Negative for ESRD Children Family History Reviewed: No Sibling(s) Family History Reviewed.: No Medication/Allergy Home Medications: Carvedilol [Coreg 25 mg Tablet] 25 mg PO Q12 09/12/16 Cilostazol 50 mg PO BID 09/12/16 Furosemide [Lasix] 40 mg PO QAM 09/12/16 Insulin Aspart [Novolog Flexpen] 4 unit SUBCUT AC 09/12/16 Sacubitril/Valsartan [Entresto 97 mg/103 mg Tablet] 1 tab PO Q12 09/12/16 Spironolactone [Aldactone 25 mg Tablet] 25 mg PO DAILY 09/12/16 Allergies/Adverse Reactions: Penicillins Allergy (Intermediate, Verified 01/01/16 12:14) swelling Review of Systems Constitutional: PRESENT: anorexia, fatigue. ABSENT: chills, fever(s), headache( s), night sweats Nose, Mouth, and Throat: ABSENT: mouth pain, sore throat Cardiovascular: ABSENT: chest pain, dyspnea on exertion, edema, orthropnea, palpitations Respiratory: ABSENT: dyspnea, hemoptysis Gastrointestinal: PRESENT: abdominal pain, coffee ground emesis, heartburn. ABSENT: constipation, diarrhea, dysphagia, hematemesis, melena, nausea, vomiting Genitourinary: ABSENT: dysuria, hematuria Musculoskeletal: ABSENT: deformity, joint swelling Integumentary: ABSENT: lesions, pruritus Neurological: ABSENT: abnormal movements, abnormal speech, confusion, convulsions, focal weakness, lack of coordination Psychiatric: ABSENT: hallucinations, homidical ideation Endocrine: ABSENT: heat intolerance Physical Exam Vital Signs: Temp Pulse Resp BP Pulse Ox 99.7 F 80 20 99/52 L 98 09/13/16 10:00 09/13/16 10:00 09/13/16 10:00 09/13/16 10:00 09/13/16 10:00 Intake & Output 09/12/16 09/13/16 09/14/16 06:59 06:59 06:59 Intake Total 1390 Output Total 325 Balance 1065 Weight 88.5 kg General appearance: PRESENT: mild distress Eye exam: PRESENT: conjunctiva pink, EOMI, PERRLA. ABSENT: nystagmus, periorbital swelling Ear exam: PRESENT: normal external ear exam Mouth exam: PRESENT: moist, neck supple Neck exam: ABSENT: lymphadenopathy, meningismus, tenderness, thyromegaly, tracheal deviation Respiratory exam: PRESENT: clear to auscultation nathan. ABSENT: crackles, rhonchi Cardiovascular exam: PRESENT: +S1, +S2 GI/Abdominal exam: PRESENT: normal bowel sounds, soft. ABSENT: distended, organomegaly, tenderness Extremities exam: ABSENT: pedal edema Neurological exam: PRESENT: awake, oriented to person, oriented to place, oriented to time Skin exam: ABSENT: erythema, rash Results Laboratory Results: 09/13/16 04:04 09/13/16 04:04 09/12/16 09/12/16 09/12/16 18:44 18:44 19:30 WBC RBC Hgb Hct MCV MCH MCHC RDW Plt Count VBG pH 7.40 VBG pCO2 31.8 L VBG HCO3 19.3 L VBG Base Excess -4.2 Sodium Potassium Chloride Carbon Dioxide Anion Gap BUN Creatinine Est GFR ( Amer) Est GFR (Non-Af Amer) Glucose Lactic Acid Calcium Magnesium Blood Type Cancelled B POSITIVE Antibody Screen Cancelled NEGATIVE 09/12/16 09/13/16 09/13/16 21:25 04:04 04:04 WBC 12.3 H RBC 2.81 L Hgb 8.2 L Hct 24.0 L MCV 85 MCH 29.3 MCHC 34.3 RDW 13.7 Plt Count 121 L VBG pH VBG pCO2 VBG HCO3 VBG Base Excess Sodium 132.4 L Potassium 3.8 Chloride 101 Carbon Dioxide 20 L Anion Gap 11 BUN 112 H Creatinine 4.63 H Est GFR ( Amer) 16 L Est GFR (Non-Af Amer) 13 L Glucose 190 H Lactic Acid 1.3 Calcium 7.6 L Magnesium 2.0 Blood Type Antibody Screen 09/13/16 09/13/16 04:04 04:04 Creatine Kinase 2696 H CK-MB (CK-2) 5.67 H Impressions: Chest X-Ray 09/12/16 16:02 IMPRESSION: NO ACUTE RADIOGRAPHIC FINDING IN THE CHEST. Abdomen/Pelvis CT 09/12/16 16:25 IMPRESSION: 1. Mild diverticulosis coli with no acute inflammatory changes. 2. Lumbar degenerative changes. Chest CT 09/12/16 16:25 IMPRESSION: 1. There is ground-glass opacification in both lower lobes suggestive of bilateral pneumonitis. 2. Degenerative disc changes and spondylosis in the lower lumbar spine. 3. There is a small pericardial effusion. Head CT 09/12/16 16:33 IMPRESSION: There is evidence of chronic microvascular ischemic change characterized by a decreased attenuation in the white matter of the right occipital lobe. There is no significant interval change. No acute intracranial pathology is seen. Assessment & Plan - Diagnosis (1) Acute renal failure Qualifiers: Acute renal failure type: unspecified Qualified Code(s): N17.9 - Acute kidney failure, unspecified Is this a current diagnosis for this admission?: YesPlan: Patient has got acute on chronic kidney injury. Nonoliguric. Patient is also got evidence of acute rhabdomyolysis of unknown etiology.Agree with fluid resuscitation but I am going to increase that rate. If his CO2 drops will need to give him bicarbonate either p.o. or through IV. Patient is also got evidence of sepsis likely from his pneumonia. I would also consider atypical organisms for his pneumonia and would also therefore consider adding Levaquin's or macrolides. Agree with antibiotic regimen but please does do GFR of 25 cc/ min. (2) Coffee ground emesis Is this a current diagnosis for this admission?: YesPlan: Needs GI evaluation especially with his drop in his hemoglobin as compared to previous one done a few months ago. (3) Congestive heart failure Is this a current diagnosis for this admission?: YesPlan: Presently stable. (4) Dehydration Is this a current diagnosis for this admission?: YesPlan: Increase hydration and monitor. (5) Diabetes Is this a current diagnosis for this admission?: Yes (6) Pneumonia Qualifiers: Pneumonia type: due to unspecified organism Laterality: bilateral Lung location: lower lobe of lung Qualified Code(s): J18.9 - Pneumonia, unspecified organism Is this a current diagnosis for this admission?: YesPlan: Patient currently on antibiotics. Monitor. (7) Rhabdomyolysis Qualifiers: Rhabdomyolysis type: non-traumatic Qualified Code(s): M62.82 - Rhabdomyolysis Is this a current diagnosis for this admission?: YesPlan: Monitor CPK and titrate fluids. (8) Sepsis Plan: Likely from his pneumonia. Please see my notes from earlier. (9) Acute blood loss anemia Plan: Given his acute drop in his hemoglobin and his positive Hemoccult he needs to be closely monitored for that. - Notes Notes: I am off for the weekend and will be back on Friday.If any questions in the meanwhile needs to be addressed please call me on my cell through the switchboard.
[2016-09-13] MEDS ORDERED: SODIUM BICARBONATE 650 MG TABLET PO ONE (16:30)
[2016-09-13] MEDS: CEFEPIME 1 GM/D5W RTU 1 GM/50 ML RTUPB IV SCH (17:17)
[2016-09-13] MEDS: SODIUM BICARBONATE 650 MG TABLET PO SCH (21:23)
[2016-09-14] MEDS: OXYCODONE HCL IR 5 MG TABLET PO PRN ×2 (04:45→16:25)
[2016-09-14 05:01] LABS: ANION GAP 12 (5-19); BLOOD UREA NITROGEN 111 mg/dL (7-20); CALCIUM 7.5 mg/dL (8.4-10.2); CARBON DIOXIDE 19 mmol/L (22-30); CHLORIDE 106 mmol/L (98-107); CREATININE RESULT 3.79 mg/dL (0.52-1.25); GLUCOSE 173 mg/dL (75-110); POTASSIUM 3.6 mmol/L (3.6-5.0); SODIUM 136.5 mmol/L (137-145)
[2016-09-14 05:04] LABS: HEMATOCRIT 23.5 % (37.9-51.0); HGB HCT DIFFERENCE 0.5; MEAN CORPUSCULAR HEMOGLOBIN 29.1 pg (27.0-33.4); MEAN CORPUSCULAR HGB CONC 34.1 g/dL (32.0-36.0); MEAN CORPUSCULAR VOLUME 85 fl (80-97); RED BLOOD COUNT 2.76 10^6/uL (4.35-5.55); RED CELL DISTRIBUTION WIDTH 13.9 % (11.5-14.0)
[2016-09-14 05:43] LABS: BASOPHILS % (MANUAL) 0 % (0-2); EOSINOPHILS % (MANUAL) 0 % (0-6); LYMPHOCYTES % (MANUAL) 2 % (13-45); TOTAL CELLS COUNTED 100
[2016-09-14 05:49] LABS: BURR CELLS 1+; POIKILOCYTOSIS 1+; TARGET CELLS SLIGHT; TOXIC GRANULATION 1+; TOXIC VACUOLATION PRESENT
[2016-09-14] MEDS: METOCLOPRAMIDE HCL INJ/PF 10 MG/2 ML SDV IV SCH ×4 (07:46→21:48)
[2016-09-14] MEDS: INSULIN LISPRO 100 UNIT/ML 3 ML VIAL SUBCUT PRN ×3 (07:46→17:30)
[2016-09-14] MEDS: PANTOPRAZOLE SODIUM 40 MG VIAL IV SCH ×2 (09:41→21:48)
[2016-09-14] MEDS: SODIUM BICARBONATE 650 MG TABLET PO SCH ×2 (09:42→21:48)
[2016-09-14] MEDS: NORMAL SALINE 1000 ML 1,000 ML IV PRN ×3 (09:44→21:47)
--- NOTE | 2016-09-14 10:24 | PDOC PROGRESS REPORT ---
Subjective Progress Note for:: 09/14/16 Subjective:: Patient reports that he is feeling better. Physical Exam Vital Signs: Temp Pulse Resp BP Pulse Ox 99.0 F 76 16 133/63 H 97 09/14/16 07:33 09/14/16 07:33 09/14/16 07:33 09/14/16 07:33 09/14/16 07:33 Intake & Output 09/13/16 09/14/16 09/15/16 06:59 06:59 06:59 Intake Total 1390 3150 Output Total 325 1200 Balance 1065 1950 Weight 88.5 kg 90.6 kg General appearance: PRESENT: no acute distress Eye exam: PRESENT: conjunctiva pink. ABSENT: scleral icterus Mouth exam: PRESENT: moist, tongue midline Neck exam: ABSENT: JVD Respiratory exam: PRESENT: rhonchi - Coarse rhonchi bilaterally.. ABSENT: rales , wheezes Cardiovascular exam: PRESENT: RRR. ABSENT: diastolic murmur, rubs, systolic murmur GI/Abdominal exam: PRESENT: normal bowel sounds, soft. ABSENT: distended, guarding, mass, organolmegaly, rebound, tenderness Extremities exam: ABSENT: calf tenderness, clubbing, pedal edema Neurological exam: PRESENT: alert, awake, oriented to person, oriented to place , oriented to time, oriented to situation, CN II-XII grossly intact. ABSENT: motor sensory deficit Psychiatric exam: PRESENT: appropriate affect Skin exam: PRESENT: other - Dressings on bilateral foot ulcers. Results Laboratory Results: 09/14/16 03:55 09/14/16 03:55 09/13/16 09/14/16 09/14/16 11:49 03:55 03:55 WBC 12.0 H RBC 2.76 L Hgb 8.0 L Hct 23.5 L MCV 85 MCH 29.1 MCHC 34.1 RDW 13.9 Plt Count 117 L Seg Neutrophils % Not Reportable Lymphocytes % Not Reportable Monocytes % Not Reportable Eosinophils % Not Reportable Basophils % Not Reportable Absolute Neutrophils Not Reportable Absolute Lymphocytes Not Reportable Absolute Monocytes Not Reportable Absolute Eosinophils Not Reportable Absolute Basophils Not Reportable Sodium 134.0 L 136.5 L Potassium 3.4 L 3.6 Chloride 104 106 Carbon Dioxide 17 L 19 L Anion Gap 13 12 BUN 112 H 111 H Creatinine 4.09 H 3.79 H Est GFR ( Amer) 18 L 20 L Est GFR (Non-Af Amer) 15 L 16 L Glucose 184 H 173 H Calcium 7.1 L 7.5 L Magnesium 1.9 09/13/16 09/13/16 04:04 04:04 Creatine Kinase 2696 H CK-MB (CK-2) 5.67 H Impressions: Chest X-Ray 09/12/16 16:02 IMPRESSION: NO ACUTE RADIOGRAPHIC FINDING IN THE CHEST. Abdomen/Pelvis CT 09/12/16 16:25 IMPRESSION: 1. Mild diverticulosis coli with no acute inflammatory changes. 2. Lumbar degenerative changes. Chest CT 09/12/16 16:25 IMPRESSION: 1. There is ground-glass opacification in both lower lobes suggestive of bilateral pneumonitis. 2. Degenerative disc changes and spondylosis in the lower lumbar spine. 3. There is a small pericardial effusion. Head CT 09/12/16 16:33 IMPRESSION: There is evidence of chronic microvascular ischemic change characterized by a decreased attenuation in the white matter of the right occipital lobe. There is no significant interval change. No acute intracranial pathology is seen. Assessment & Plan - Diagnosis (1) SIRS (systemic inflammatory response syndrome) Is this a current diagnosis for this admission?: YesPlan: Likely secondary to his underlying pneumonia. He did have an episode of hypotension that did resolve with fluids. Patient now is growing gram-positive cocci from his blood cultures. Will continue vancomycin and cefepime. (2) Pneumonia Qualifiers: Pneumonia type: due to unspecified organism Laterality: bilateral Lung location: lower lobe of lung Qualified Code(s): J18.9 - Pneumonia, unspecified organism Is this a current diagnosis for this admission?: YesPlan: Patient has bilateral pneumonia on chest x-ray. Will treat with cefepime and vancomycin (3) Acute renal failure Qualifiers: Acute renal failure type: unspecified Qualified Code(s): N17.9 - Acute kidney failure, unspecified Is this a current diagnosis for this admission?: YesPlan: Patient has an elevated creatinine secondary to his nausea vomiting and dehydration. Nephrology has evaluated the patient and we will continue the IV fluids. Will need to be cautious given his history of congestive heart failure. (4) Dehydration Is this a current diagnosis for this admission?: YesPlan: Secondary to his GI symptoms. Will give IV Reglan, IV fluids (5) Diabetes Is this a current diagnosis for this admission?: YesPlan: We will cover with sliding scale insulin. (6) Congestive heart failure Is this a current diagnosis for this admission?: YesPlan: Patient has chronic systolic congestive heart failure. He has continued to receive IV fluids and has no evidence for volume overload yet. He has had a defibrillator placed by [facility] cardiology (7) Peripheral neuropathy Is this a current diagnosis for this admission?: Yes (8) Hyperlipidemia Is this a current diagnosis for this admission?: Yes (9) Coffee ground emesis Is this a current diagnosis for this admission?: YesPlan: Hemoglobin has remained stable. had an EGD done yesterday by general surgery and their help is appreciated. (10) Hypotension Qualifiers: Hypotension type: unspecified hypotension type Qualified Code(s): I95.9 - Hypotension, unspecified Is this a current diagnosis for this admission?: YesPlan: This has resolved with IV fluids. (11) Rhabdomyolysis Qualifiers: Rhabdomyolysis type: non-traumatic Qualified Code(s): M62.82 - Rhabdomyolysis Is this a current diagnosis for this admission?: YesPlan: Continue to monitor creatine kinase (12) HTN (hypertension) Is this a current diagnosis for this admission?: YesPlan: We will hold his antihypertensives until his blood pressure improves with fluids. - Time Time Spent with patient: 25-34 minutes - Inpatient Certification Medical Necessity: Need Close Monitoring Due to Risk of Patient Decompensation, Need for IV Antibiotics
[2016-09-14] MEDS: CEFEPIME 1 GM/D5W RTU 1 GM/50 ML RTUPB IV SCH (17:12)
[2016-09-15] MEDS: INSULIN LISPRO 100 UNIT/ML 3 ML VIAL SUBCUT PRN ×5 (00:50→23:24)
[2016-09-15] MEDS: NORMAL SALINE 1000 ML 1,000 ML IV PRN ×3 (02:21→16:23)
[2016-09-15 05:08] LABS: HEMOGLOBIN 8.2 g/dL (13.5-17.0); HGB HCT DIFFERENCE 0.6; MEAN CORPUSCULAR HEMOGLOBIN 29.4 pg (27.0-33.4); MEAN CORPUSCULAR HGB CONC 34.2 g/dL (32.0-36.0); MEAN CORPUSCULAR VOLUME 86 fl (80-97); WHITE BLOOD COUNT 14.9 10^3/uL (4.0-10.5)
[2016-09-15 05:19] LABS: ANION GAP 11 (5-19); BLOOD UREA NITROGEN 98 mg/dL (7-20); CALCIUM 7.7 mg/dL (8.4-10.2); CARBON DIOXIDE 18 mmol/L (22-30); CHLORIDE 111 mmol/L (98-107); CREATINE KINASE 559 U/L (55-170); GLUCOSE 251 mg/dL (75-110); POTASSIUM 3.5 mmol/L (3.6-5.0); SODIUM 139.5 mmol/L (137-145)
[2016-09-15 05:31] LABS: BAND NEUTROPHILS % (MANUAL) 1 % (3-5); BASOPHILS % (MANUAL) 0 % (0-2); EOSINOPHILS % (MANUAL) 0 % (0-6); LYMPHOCYTES % (MANUAL) 7 % (13-45); TOTAL CELLS COUNTED 100
[2016-09-15 05:34] LABS: ANISOCYTOSIS SLIGHT; TOXIC GRANULATION 1+
[2016-09-15 05:35] LABS: ACANTHOCYTES 1+; BURR CELLS 1+; OVALOCYTES SLIGHT; POIKILOCYTOSIS 1+; TARGET CELLS 1+
[2016-09-15] MEDS ORDERED: POTASSIUM CHLORIDE 10 MEQ TABLET.SA PO ONE (07:22)
[2016-09-15] MEDS: OXYCODONE HCL IR 5 MG TABLET PO PRN ×2 (07:38→17:31)
[2016-09-15] MEDS: METOCLOPRAMIDE HCL INJ/PF 10 MG/2 ML SDV IV SCH ×4 (07:39→21:08)
[2016-09-15] MEDS ORDERED: LACTULOSE SYRUP 20 GM/30 ML UDCUP PO PRN (08:43)
[2016-09-15] MEDS: SODIUM BICARBONATE 650 MG TABLET PO SCH ×2 (09:31→21:08)
[2016-09-15] MEDS: VANCOMYCIN HCL 1,000 MG in DEXTROSE 5%-WATER 250 ML IV SCH (09:31)
[2016-09-15] MEDS: INSULIN GLARGINE,HUM.REC.ANLOG 300 UNIT/3 ML INSULN.PEN SUBCUT SCH (09:33)
--- NOTE | 2016-09-15 11:15 | PDOC PROGRESS REPORT ---
Subjective Progress Note for:: 09/15/16 Subjective:: Complains of constipation today. Physical Exam Vital Signs: Temp Pulse Resp BP Pulse Ox 98.9 F 76 20 142/70 H 95 09/15/16 07:20 09/15/16 07:20 09/15/16 07:20 09/15/16 07:20 09/15/16 07:20 Intake & Output 09/14/16 09/15/16 09/16/16 06:59 06:59 06:59 Intake Total 3150 2105 Output Total 1200 1725 Balance 1950 380 Weight 90.6 kg 97 kg General appearance: PRESENT: no acute distress Eye exam: PRESENT: conjunctiva pink. ABSENT: scleral icterus Ear exam: PRESENT: normal external ear exam Mouth exam: PRESENT: moist, tongue midline Neck exam: ABSENT: JVD Respiratory exam: PRESENT: rhonchi - Coarse rhonchi bilaterally.. ABSENT: rales , wheezes Cardiovascular exam: PRESENT: RRR, systolic murmur. ABSENT: diastolic murmur, rubs GI/Abdominal exam: PRESENT: normal bowel sounds, soft. ABSENT: distended, guarding, mass, organolmegaly, rebound, tenderness Extremities exam: ABSENT: calf tenderness, clubbing, pedal edema Neurological exam: PRESENT: alert, awake, oriented to person, oriented to place , oriented to time, oriented to situation, CN II-XII grossly intact. ABSENT: motor sensory deficit Psychiatric exam: PRESENT: appropriate affect Skin exam: PRESENT: other - Bilateral foot ulcers present. Results Laboratory Results: 09/15/16 04:08 09/15/16 04:08 09/15/16 09/15/16 04:08 04:08 WBC 14.9 H RBC 2.80 L Hgb 8.2 L Hct 24.0 L MCV 86 MCH 29.4 MCHC 34.2 RDW 14.0 Plt Count 155 Seg Neutrophils % Not Reportable Lymphocytes % Not Reportable Monocytes % Not Reportable Eosinophils % Not Reportable Basophils % Not Reportable Absolute Neutrophils Not Reportable Absolute Lymphocytes Not Reportable Absolute Monocytes Not Reportable Absolute Eosinophils Not Reportable Absolute Basophils Not Reportable Sodium 139.5 Potassium 3.5 L Chloride 111 H Carbon Dioxide 18 L Anion Gap 11 BUN 98 H Creatinine 2.60 H Est GFR ( Amer) 30 L Est GFR (Non-Af Amer) 25 L Glucose 251 H Calcium 7.7 L 09/13/16 09/13/16 09/15/16 04:04 04:04 04:08 Creatine Kinase 2696 H 559 H CK-MB (CK-2) 5.67 H Impressions: Chest X-Ray 09/12/16 16:02 IMPRESSION: NO ACUTE RADIOGRAPHIC FINDING IN THE CHEST. Abdomen/Pelvis CT 09/12/16 16:25 IMPRESSION: 1. Mild diverticulosis coli with no acute inflammatory changes. 2. Lumbar degenerative changes. Chest CT 09/12/16 16:25 IMPRESSION: 1. There is ground-glass opacification in both lower lobes suggestive of bilateral pneumonitis. 2. Degenerative disc changes and spondylosis in the lower lumbar spine. 3. There is a small pericardial effusion. Head CT 09/12/16 16:33 IMPRESSION: There is evidence of chronic microvascular ischemic change characterized by a decreased attenuation in the white matter of the right occipital lobe. There is no significant interval change. No acute intracranial pathology is seen. Assessment & Plan - Diagnosis (1) SIRS (systemic inflammatory response syndrome) Is this a current diagnosis for this admission?: YesPlan: Likely secondary to his underlying pneumonia. He did have an episode of hypotension that did resolve with fluids. Patient now is growing gram-positive cocci from his blood cultures. Will continue vancomycin and cefepime. (2) Pneumonia Qualifiers: Pneumonia type: due to unspecified organism Laterality: bilateral Lung location: lower lobe of lung Qualified Code(s): J18.9 - Pneumonia, unspecified organism Is this a current diagnosis for this admission?: YesPlan: Patient has bilateral pneumonia on chest x-ray. Will treat with cefepime and vancomycin (3) Acute renal failure Qualifiers: Acute renal failure type: unspecified Qualified Code(s): N17.9 - Acute kidney failure, unspecified Is this a current diagnosis for this admission?: YesPlan: Patient has an elevated creatinine secondary to his nausea vomiting and dehydration. Nephrology has evaluated the patient and we will continue the IV fluids. Creatinine continues to improve. No evidence for congestive heart failure at this time. (4) Dehydration Is this a current diagnosis for this admission?: YesPlan: Resolving (5) Diabetes Is this a current diagnosis for this admission?: YesPlan: We will cover with sliding scale insulin. (6) Congestive heart failure Is this a current diagnosis for this admission?: YesPlan: Patient has chronic systolic congestive heart failure. He has continued to receive IV fluids and has no evidence for volume overload yet. (7) Peripheral neuropathy Is this a current diagnosis for this admission?: Yes (8) Hyperlipidemia Is this a current diagnosis for this admission?: Yes (9) Coffee ground emesis Is this a current diagnosis for this admission?: YesPlan: Hemoglobin has remained stable. had an EGD done by general surgery and their help is appreciated. (10) Hypotension Qualifiers: Hypotension type: unspecified hypotension type Qualified Code(s): I95.9 - Hypotension, unspecified Is this a current diagnosis for this admission?: YesPlan: This has resolved with IV fluids. (11) Rhabdomyolysis Qualifiers: Rhabdomyolysis type: non-traumatic Qualified Code(s): M62.82 - Rhabdomyolysis Is this a current diagnosis for this admission?: YesPlan: Continue to monitor creatine kinase. It has decreased from admission. (12) HTN (hypertension) Is this a current diagnosis for this admission?: YesPlan: We will hold his antihypertensives until his blood pressure improves with fluids. - Time Time Spent with patient: 25-34 minutes - Inpatient Certification Medical Necessity: Need For IV Fluids
[2016-09-15] MEDS: LANSOPRAZOLE 30 MG TAB.RAP.DR PO SCH (16:23)
[2016-09-15] MEDS ORDERED: FUROSEMIDE INJ/PF 40 MG/4 ML SDV IV ONE (16:45)
[2016-09-15] MEDS: CEFEPIME 1 GM/D5W RTU 1 GM/50 ML RTUPB IV SCH (17:32)
[2016-09-16] MEDS: OXYCODONE HCL IR 5 MG TABLET PO PRN ×3 (01:53→18:46)
[2016-09-16 05:06] LABS: ABSOLUTE EOSINOPHILS # (AUTO) 0.1 10^3/uL (0.0-0.6); ABSOLUTE LYMPHOCYTES (AUTO) 1.1 10^3/uL (0.5-4.7); ABSOLUTE MONOCYTES (AUTO) 1.6 10^3/uL (0.1-1.4); ABSOLUTE NEUT (AUTO) 16.2 10^3/uL (1.7-8.2); BASOPHILS % (AUTO) 0.2 % (0-2); EOSINOPHILS % (AUTO) 0.8 % (0-6); HEMATOCRIT 23.5 % (37.9-51.0); HEMOGLOBIN 8.1 g/dL (13.5-17.0); HGB HCT DIFFERENCE 0.8; LYMPHOCYTES % (AUTO) 5.9 % (13-45); MEAN CORPUSCULAR HEMOGLOBIN 29.2 pg (27.0-33.4); MEAN CORPUSCULAR HGB CONC 34.4 g/dL (32.0-36.0); MEAN CORPUSCULAR VOLUME 85 fl (80-97); MONOCYTES % (AUTO) 8.2 % (3-13); RED BLOOD COUNT 2.77 10^6/uL (4.35-5.55); SEGMENTED NEUTROPHILS % (AUTO) 84.9 % (42-78); WHITE BLOOD COUNT 19.1 10^3/uL (4.0-10.5)
[2016-09-16 05:13] LABS: ANION GAP 10 (5-19); BLOOD UREA NITROGEN 83 mg/dL (7-20); CALCIUM 7.8 mg/dL (8.4-10.2); CARBON DIOXIDE 18 mmol/L (22-30); CHLORIDE 114 mmol/L (98-107); GLUCOSE 221 mg/dL (75-110); POTASSIUM 3.5 mmol/L (3.6-5.0); SODIUM 142.1 mmol/L (137-145)
[2016-09-16] MEDS: LANSOPRAZOLE 30 MG TAB.RAP.DR PO SCH ×2 (06:04→16:46)
[2016-09-16] MEDS: INSULIN LISPRO 100 UNIT/ML 3 ML VIAL SUBCUT PRN ×4 (08:11→21:45)
[2016-09-16] MEDS: METOCLOPRAMIDE HCL INJ/PF 10 MG/2 ML SDV IV SCH ×2 (08:11→12:03)
--- NOTE | 2016-09-16 09:46 | PDOC PROGRESS REPORT ---
Subjective Progress Note for:: 09/16/16 Subjective:: Complains of feeling weak. He states he is having difficulty feeding himself. Physical Exam Vital Signs: Temp Pulse Resp BP Pulse Ox 99.3 F 82 18 139/60 H 97 09/16/16 08:29 09/16/16 08:29 09/16/16 08:29 09/16/16 08:29 09/16/16 08:29 Intake & Output 09/15/16 09/16/16 09/17/16 06:59 06:59 06:59 Intake Total 2105 3695 Output Total 1725 3800 Balance 380 -105 Weight 97 kg 97.6 kg General appearance: PRESENT: no acute distress Eye exam: PRESENT: conjunctiva pink. ABSENT: scleral icterus Ear exam: PRESENT: normal external ear exam Mouth exam: PRESENT: moist, tongue midline Neck exam: ABSENT: JVD Respiratory exam: PRESENT: clear to auscultation nathan. ABSENT: rales, rhonchi, wheezes Cardiovascular exam: PRESENT: RRR. ABSENT: diastolic murmur, rubs, systolic murmur GI/Abdominal exam: PRESENT: normal bowel sounds, soft. ABSENT: distended, guarding, mass, organolmegaly, rebound, tenderness Extremities exam: PRESENT: other - Dressings in place on the feet. ABSENT: calf tenderness, clubbing, pedal edema Neurological exam: PRESENT: alert, awake, oriented to person, oriented to place , oriented to time, oriented to situation, CN II-XII grossly intact. ABSENT: motor sensory deficit Psychiatric exam: PRESENT: appropriate affect Skin exam: PRESENT: other - Patient has dressings on bilateral feet Results Laboratory Results: 09/16/16 03:57 09/16/16 03:57 09/16/16 09/16/16 03:57 03:57 WBC 19.1 H RBC 2.77 L Hgb 8.1 L Hct 23.5 L MCV 85 MCH 29.2 MCHC 34.4 RDW 14.0 Plt Count 178 Seg Neutrophils % 84.9 H Lymphocytes % 5.9 L Monocytes % 8.2 Eosinophils % 0.8 Basophils % 0.2 Absolute Neutrophils 16.2 H Absolute Lymphocytes 1.1 Absolute Monocytes 1.6 H Absolute Eosinophils 0.1 Absolute Basophils 0.0 Sodium 142.1 Potassium 3.5 L Chloride 114 H Carbon Dioxide 18 L Anion Gap 10 BUN 83 H Creatinine 1.90 H Est GFR ( Amer) 43 L Est GFR (Non-Af Amer) 36 L Glucose 221 H Calcium 7.8 L 09/12/16 18:44 Blood Blood Culture - Final Staphylococcus Aureus 09/13/16 09/13/16 09/15/16 04:04 04:04 04:08 Creatine Kinase 2696 H 559 H CK-MB (CK-2) 5.67 H Impressions: Chest X-Ray 09/12/16 16:02 IMPRESSION: NO ACUTE RADIOGRAPHIC FINDING IN THE CHEST. Abdomen/Pelvis CT 09/12/16 16:25 IMPRESSION: 1. Mild diverticulosis coli with no acute inflammatory changes. 2. Lumbar degenerative changes. Chest CT 09/12/16 16:25 IMPRESSION: 1. There is ground-glass opacification in both lower lobes suggestive of bilateral pneumonitis. 2. Degenerative disc changes and spondylosis in the lower lumbar spine. 3. There is a small pericardial effusion. Head CT 09/12/16 16:33 IMPRESSION: There is evidence of chronic microvascular ischemic change characterized by a decreased attenuation in the white matter of the right occipital lobe. There is no significant interval change. No acute intracranial pathology is seen. Assessment & Plan - Diagnosis (1) SIRS (systemic inflammatory response syndrome) Is this a current diagnosis for this admission?: YesPlan: Likely secondary to his underlying pneumonia and urinary tract infection.. He did have an episode of hypotension that did resolve with fluids. Growing methicillin-resistant staph aureus from 2 blood cultures and urine culture. Will continue vancomycin and stop the cefepime. Discussed with infectious disease at [facility]. They recommended an echocardiogram to make certain he does not have endocarditis. If that is negative the recommendations are vancomycin 4 weeks. If there is any evidence for endocarditis then 6 weeks of treatment. (2) Pneumonia Qualifiers: Pneumonia type: due to unspecified organism Laterality: bilateral Lung location: lower lobe of lung Qualified Code(s): J18.9 - Pneumonia, unspecified organism Is this a current diagnosis for this admission?: YesPlan: Patient has bilateral pneumonia on chest x-ray. Will treat with vancomycin (3) Acute renal failure Qualifiers: Acute renal failure type: unspecified Qualified Code(s): N17.9 - Acute kidney failure, unspecified Is this a current diagnosis for this admission?: YesPlan: Patient has an elevated creatinine secondary to his nausea vomiting and dehydration. Nephrology has evaluated the patient. Creatinine continues to improve. IV fluids were stopped yesterday because he was starting to show evidence for volume overload. (4) Dehydration Is this a current diagnosis for this admission?: YesPlan: Resolved (5) Diabetes Is this a current diagnosis for this admission?: YesPlan: We will cover with sliding scale insulin. (6) Congestive heart failure Is this a current diagnosis for this admission?: YesPlan: Patient has chronic systolic congestive heart failure. (7) Peripheral neuropathy Is this a current diagnosis for this admission?: Yes (8) Hyperlipidemia Is this a current diagnosis for this admission?: Yes (9) Coffee ground emesis Is this a current diagnosis for this admission?: YesPlan: Hemoglobin has remained stable. had an EGD done by general surgery and their help is appreciated. (10) Hypotension Qualifiers: Hypotension type: unspecified hypotension type Qualified Code(s): I95.9 - Hypotension, unspecified Is this a current diagnosis for this admission?: YesPlan: This has resolved with IV fluids. (11) Rhabdomyolysis Qualifiers: Rhabdomyolysis type: non-traumatic Qualified Code(s): M62.82 - Rhabdomyolysis Is this a current diagnosis for this admission?: YesPlan: Continue to monitor creatine kinase. It has decreased from admission. (12) HTN (hypertension) Is this a current diagnosis for this admission?: YesPlan: We will hold his antihypertensives until his blood pressure improves with fluids. - Time Time Spent with patient: 25-34 minutes - Inpatient Certification Medical Necessity: Need for IV Antibiotics - Plan Summary Plan Summary: will need a PICC line placed once his second set of blood cultures comes back negative.
[2016-09-16] MEDS: SODIUM BICARBONATE 650 MG TABLET PO SCH ×2 (10:43→21:28)
[2016-09-16] MEDS: INSULIN GLARGINE,HUM.REC.ANLOG 300 UNIT/3 ML INSULN.PEN SUBCUT SCH (10:44)
[2016-09-16] MEDS: VANCOMYCIN HCL 1,500 MG in DEXTROSE 5%-WATER 250 ML IV SCH (10:44)
[2016-09-16] MEDS ORDERED: ONDANSETRON HCL INJ/PF 4 MG/2 ML SDV IV PRN (13:52)
[2016-09-16] MEDS: METOCLOPRAMIDE HCL 10 MG TABLET PO SCH ×2 (16:46→21:28)
[2016-09-17] MEDS: LANSOPRAZOLE 30 MG TAB.RAP.DR PO SCH ×2 (05:21→17:05)
[2016-09-17 05:37] LABS: ANION GAP 11 (5-19); BLOOD UREA NITROGEN 76 mg/dL (7-20); CALCIUM 8.1 mg/dL (8.4-10.2); CARBON DIOXIDE 20 mmol/L (22-30); CHLORIDE 115 mmol/L (98-107); CREATINE KINASE 133 U/L (55-170); CREATININE RESULT 1.72 mg/dL (0.52-1.25); GLUCOSE 181 mg/dL (75-110); POTASSIUM 3.9 mmol/L (3.6-5.0)
[2016-09-17 05:57] LABS: HEMATOCRIT 23.9 % (37.9-51.0); HEMOGLOBIN 8.1 g/dL (13.5-17.0); HGB HCT DIFFERENCE 0.4; MEAN CORPUSCULAR HEMOGLOBIN 28.6 pg (27.0-33.4); MEAN CORPUSCULAR HGB CONC 33.8 g/dL (32.0-36.0); MEAN CORPUSCULAR VOLUME 85 fl (80-97); RED BLOOD COUNT 2.82 10^6/uL (4.35-5.55); RED CELL DISTRIBUTION WIDTH 13.9 % (11.5-14.0); WHITE BLOOD COUNT 22.6 10^3/uL (4.0-10.5)
[2016-09-17 06:05] LABS: BASOPHILS % (MANUAL) 1 % (0-2); EOSINOPHILS % (MANUAL) 2 % (0-6); LYMPHOCYTES % (MANUAL) 3 % (13-45); TOTAL CELLS COUNTED 100
[2016-09-17 06:06] LABS: BURR CELLS SLIGHT; POLYCHROMASIA SLIGHT; SCHISTOCYTES SLIGHT; TOXIC GRANULATION SLIGHT
--- NOTE | 2016-09-17 10:08 | PDOC PROGRESS REPORT ---
Subjective Progress Note for:: 09/17/16 Subjective:: Patient comfortable in bed. He denies shortness of breath but admits having coughing intermittently. Denies chills or fever nor diarrhea. Denies any foul- smelling drainage of the toe as well. Family at bedside. Patient apparently is ambulatory until his symptoms started to begin prior to this admission. Repeat blood cultures still growing gram-positive cocci. Physical Exam Vital Signs: Temp Pulse Resp BP Pulse Ox 98.0 F 78 20 116/54 L 97 09/17/16 04:40 09/17/16 04:40 09/17/16 04:40 09/17/16 04:40 09/17/16 04:40 Intake & Output 09/16/16 09/17/16 09/18/16 06:59 06:59 06:59 Intake Total 3695 1576 Output Total 3800 3050 Balance -105 -1474 Weight 97.6 kg 97 kg General appearance: PRESENT: no acute distress, cooperative Head exam: PRESENT: normocephalic Eye exam: PRESENT: EOMI Mouth exam: PRESENT: moist, neck supple Neck exam: ABSENT: JVD Respiratory exam: PRESENT: clear to auscultation nathan. ABSENT: rhonchi, wheezes Cardiovascular exam: PRESENT: RRR. ABSENT: gallop GI/Abdominal exam: PRESENT: soft. ABSENT: distended, tenderness Extremities exam: PRESENT: other - Trace to +1 lower extremity edema bilateral Neurological exam: PRESENT: alert, awake, oriented to situation Psychiatric exam: ABSENT: agitated Focused psych exam: ABSENT: restlessness Skin exam: PRESENT: dry, warm. ABSENT: cyanosis Results Laboratory Results: 09/17/16 03:54 09/17/16 03:54 09/17/16 09/17/16 03:54 03:54 WBC 22.6 H RBC 2.82 L Hgb 8.1 L Hct 23.9 L MCV 85 MCH 28.6 MCHC 33.8 RDW 13.9 Plt Count 242 Seg Neutrophils % Not Reportable Lymphocytes % Not Reportable Monocytes % Not Reportable Eosinophils % Not Reportable Basophils % Not Reportable Absolute Neutrophils Not Reportable Absolute Lymphocytes Not Reportable Absolute Monocytes Not Reportable Absolute Eosinophils Not Reportable Absolute Basophils Not Reportable Sodium 146.0 H Potassium 3.9 Chloride 115 H Carbon Dioxide 20 L Anion Gap 11 BUN 76 H Creatinine 1.72 H Est GFR ( Amer) 49 L Est GFR (Non-Af Amer) 40 L Glucose 181 H Calcium 8.1 L 09/13/16 09/13/16 09/15/16 04:04 04:04 04:08 Creatine Kinase 2696 H 559 H CK-MB (CK-2) 5.67 H 09/17/16 03:54 Creatine Kinase 133 CK-MB (CK-2) Impressions: Chest X-Ray 09/12/16 16:02 IMPRESSION: NO ACUTE RADIOGRAPHIC FINDING IN THE CHEST. Abdomen/Pelvis CT 09/12/16 16:25 IMPRESSION: 1. Mild diverticulosis coli with no acute inflammatory changes. 2. Lumbar degenerative changes. Chest CT 09/12/16 16:25 IMPRESSION: 1. There is ground-glass opacification in both lower lobes suggestive of bilateral pneumonitis. 2. Degenerative disc changes and spondylosis in the lower lumbar spine. 3. There is a small pericardial effusion. Head CT 09/12/16 16:33 IMPRESSION: There is evidence of chronic microvascular ischemic change characterized by a decreased attenuation in the white matter of the right occipital lobe. There is no significant interval change. No acute intracranial pathology is seen. Assessment & Plan - Diagnosis (1) Sepsis Qualifiers: Sepsis type: sepsis due to unspecified organism Qualified Code(s): A41.9 - Sepsis, unspecified organism Is this a current diagnosis for this admission?: Yes (2) Urinary tract infection Qualifiers: Urinary tract infection type: site unspecified Hematuria presence: without hematuria Qualified Code(s): N39.0 - Urinary tract infection, site not specified Is this a current diagnosis for this admission?: Yes (3) Acute renal failure Qualifiers: Acute renal failure type: unspecified Qualified Code(s): N17.9 - Acute kidney failure, unspecified Is this a current diagnosis for this admission?: Yes (4) Pneumonia Qualifiers: Pneumonia type: due to unspecified organism Laterality: bilateral Lung location: lower lobe of lung Qualified Code(s): J18.9 - Pneumonia, unspecified organism Is this a current diagnosis for this admission?: Yes (5) Acute blood loss anemia Is this a current diagnosis for this admission?: Yes (6) Gastritis Qualifiers: Gastritis bleeding: presence of bleeding unspecified Is this a current diagnosis for this admission?: Yes (7) Esophagitis Is this a current diagnosis for this admission?: Yes (8) Rhabdomyolysis Qualifiers: Rhabdomyolysis type: non-traumatic Qualified Code(s): M62.82 - Rhabdomyolysis Is this a current diagnosis for this admission?: Yes (9) GERD (gastroesophageal reflux disease) Qualifiers: Esophagitis presence: without esophagitis Qualified Code(s): K21.9 - Gastro-esophageal reflux disease without esophagitis Is this a current diagnosis for this admission?: Yes (10) Congestive heart failure Qualifiers: Congestive heart failure type: systolic Congestive heart failure chronicity: chronic Qualified Code(s): I50.22 - Chronic systolic ( congestive) heart failure Is this a current diagnosis for this admission?: Yes (11) Hyperlipidemia Qualifiers: Hyperlipidemia type: unspecified Qualified Code(s): E78.5 - Hyperlipidemia, unspecified Is this a current diagnosis for this admission?: Yes (12) HTN (hypertension) Qualifiers: Hypertension type: essential hypertension Qualified Code(s): I10 - Essential (primary) hypertension Is this a current diagnosis for this admission?: Yes (13) Bilateral diabetic foot ulcer associated with type 1 diabetes mellitus Is this a current diagnosis for this admission?: Yes (14) Peripheral neuropathy Qualifiers: Peripheral neuropathy type: polyneuropathy, unspecified Qualified Code(s): G62.9 - Polyneuropathy, unspecified Is this a current diagnosis for this admission?: Yes - Time Time Spent with patient: 25-34 minutes - Plan Summary Plan Summary: Echocardiogram today. We will continue current antibiotics. We will follow blood culture which could just be a contaminant. We will arrange for PICC line once identity or organism is present on the repeat cultures.
[2016-09-17] MEDS: METOCLOPRAMIDE HCL 10 MG TABLET PO SCH ×4 (11:14→21:15)
[2016-09-17] MEDS: SODIUM BICARBONATE 650 MG TABLET PO SCH ×2 (11:24→21:15)
[2016-09-17] MEDS: VANCOMYCIN HCL 1,500 MG in DEXTROSE 5%-WATER 250 ML IV SCH (11:36)
--- NOTE | 2016-09-17 12:03 | OPERATIVE REPORT E ---
Operative Report NAME: FLAG MORELIA : 1950 AGE: 66Y DATE OF SURGERY: 09/16/2016 ROOM: 301 HISTORY: Consultation from hospitalist group for management of right foot second toe abscess soft tissue infection. Patient is a diabetic and mostly bedridden. Has diabetic foot ulcers. He is admitted with pneumonia and sepsis due to pneumonia. He was being managed and then found to have right foot second toe abscess that needs to be drained and debrided. PREOPERATIVE DIAGNOSIS: Right toe on the distal phalanx. There is a necrotic soft tissue infection extending up to the distal phalanx. POSTOPERATIVE DIAGNOSIS: Right toe on the distal phalanx. There is a necrotic soft tissue infection extending up to the distal phalanx. PROCEDURE: Bedside incision and drainage of the abscess, along with the excisional debridement of the soft tissue necrosis up to the level of periosteum and fascia. SURGEON: COSTA PEÑA M.D. PROCEDURE: Procedure was done at the bedside. He had Percocet for the pain. Able to tolerate it very well. I explained to the patient's sister and the patient's family about the procedure, indications, possibility for losing the toe because of poor wound healing in a diabetic expected and the need for a long-term antibiotic. After cleaning and draping the right foot, with sharp scissors the dorsal aspect of the distal phalanx of the right second toe abscess opened, underlying of the purulent fluid was drained and then all of the soft tissue necrotic tissue was excised by excision and sharp debridement all the way to the level of the periosteum and the distal phalangeal bone, which was exposed, but underlying tissue was pretty clean otherwise. There is no sign of an extension of the infection anymore. After the wound was debrided, it was irrigated. Dressings were applied. Patient tolerated the procedure well. Further wound care with sterile dressings. Followup with and primary care, diabetes control, wound monitoring as in the hospital, and then wound care can be followed in the Clinic frequently. DICTATING PHYSICIAN: COSTA PEÑA M.D. [id number] PHY#: [id number] ID: [id number] JOB#: [id number] ACCT: [id number] cc:COSTA PEÑA M.D. > MTDD
[2016-09-17] MEDS ORDERED: INSULIN GLARGINE,HUM.REC.ANLOG 300 UNIT/3 ML INSULN.PEN SUBCUT ONE (12:30)
[2016-09-17] MEDS: INSULIN LISPRO 100 UNIT/ML 3 ML VIAL SUBCUT PRN ×2 (17:05→20:46)
[2016-09-17] MEDS ORDERED: INSULIN REG, HUMAN 100 UNIT/ML 3 ML VIAL (PYX) IV ONE (19:00)
[2016-09-17] MEDS ORDERED: INSULIN REG, HUMAN 100 UNIT/ML 3 ML VIAL (PYX) ONE (19:00)
[2016-09-17] MEDS ORDERED: INSULIN LISPRO 100 UNIT/ML 3 ML VIAL SUBCUT ONE (20:31)
[2016-09-18] MEDS: LANSOPRAZOLE 30 MG TAB.RAP.DR PO SCH ×2 (05:27→17:58)
[2016-09-18] MEDS: INSULIN LISPRO 100 UNIT/ML 3 ML VIAL SUBCUT SCH ×3 (08:00→17:58)
[2016-09-18] MEDS: METOCLOPRAMIDE HCL 10 MG TABLET PO SCH ×2 (08:00→12:48)
[2016-09-18] MEDS: INSULIN GLARGINE,HUM.REC.ANLOG 300 UNIT/3 ML INSULN.PEN SUBCUT SCH (10:00)
--- NOTE | 2016-09-18 10:03 | PROGRESS NOTE E ---
Progress Note NAME: FLAG MORELIA : 1950 AGE: 66Y DATE: 09/18/2016 ROOM: 301 SUBJECTIVE: The right second toe dressing was removed. Debridement site looks clean and dry. There is no tenderness according to the patient. PLAN: Continue with wet-to-dry dressing for the next 48-72 hours. Since the infection appears to have been resolved, I would hold off doing any amputation at this time. DICTATING PHYSICIAN: PIERRE MOTT M.D. [id number] PHY#: [id number] ID: [id number] JOB#: [id number] ACCT: [id number] cc: >
--- NOTE | 2016-09-18 11:24 | PDOC PROGRESS REPORT ---
Subjective Progress Note for:: 09/18/16 Subjective:: Patient apparently refusing blood works as well as Accu-Cheks., Patient states he is better. No reported temperature spikes respiratory distress chills or fever. No diarrhea nausea or vomiting. Blood sugars has been elevated but her anion gap is normal yesterday. Apparently patient receiving dextrose from IV antibiotics. He is uncooperative with the examination. He stated that he is just fine. Physical Exam Vital Signs: Temp Pulse Resp BP Pulse Ox 100.2 F 90 24 H 171/84 H 95 09/17/16 20:55 09/18/16 02:00 09/17/16 20:55 09/17/16 20:55 09/17/16 20:55 Intake & Output 09/17/16 09/18/16 09/19/16 06:59 06:59 06:59 Intake Total 1576 1032 Output Total 3050 1000 Balance -1474 32 Weight 97 kg Exam: Patient is refusing to be examined as well. Results Laboratory Results: 09/17/16 03:54 09/17/16 03:54 09/13/16 09/13/16 09/15/16 04:04 04:04 04:08 Creatine Kinase 2696 H 559 H CK-MB (CK-2) 5.67 H 09/17/16 03:54 Creatine Kinase 133 CK-MB (CK-2) Impressions: Chest X-Ray 09/12/16 16:02 IMPRESSION: NO ACUTE RADIOGRAPHIC FINDING IN THE CHEST. Abdomen/Pelvis CT 09/12/16 16:25 IMPRESSION: 1. Mild diverticulosis coli with no acute inflammatory changes. 2. Lumbar degenerative changes. Chest CT 09/12/16 16:25 IMPRESSION: 1. There is ground-glass opacification in both lower lobes suggestive of bilateral pneumonitis. 2. Degenerative disc changes and spondylosis in the lower lumbar spine. 3. There is a small pericardial effusion. Head CT 09/12/16 16:33 IMPRESSION: There is evidence of chronic microvascular ischemic change characterized by a decreased attenuation in the white matter of the right occipital lobe. There is no significant interval change. No acute intracranial pathology is seen. Assessment & Plan - Diagnosis (1) Sepsis Qualifiers: Sepsis type: sepsis due to unspecified organism Qualified Code(s): A41.9 - Sepsis, unspecified organism Is this a current diagnosis for this admission?: Yes (2) Urinary tract infection Qualifiers: Urinary tract infection type: site unspecified Hematuria presence: without hematuria Qualified Code(s): N39.0 - Urinary tract infection, site not specified Is this a current diagnosis for this admission?: Yes (3) Acute renal failure Qualifiers: Acute renal failure type: unspecified Qualified Code(s): N17.9 - Acute kidney failure, unspecified Is this a current diagnosis for this admission?: Yes (4) Pneumonia Qualifiers: Pneumonia type: due to unspecified organism Laterality: bilateral Lung location: lower lobe of lung Qualified Code(s): J18.9 - Pneumonia, unspecified organism Is this a current diagnosis for this admission?: Yes (5) Acute blood loss anemia Is this a current diagnosis for this admission?: Yes (6) Gastritis Qualifiers: Gastritis bleeding: presence of bleeding unspecified Is this a current diagnosis for this admission?: Yes (7) Esophagitis Is this a current diagnosis for this admission?: Yes (8) Rhabdomyolysis Qualifiers: Rhabdomyolysis type: non-traumatic Qualified Code(s): M62.82 - Rhabdomyolysis Is this a current diagnosis for this admission?: Yes (9) GERD (gastroesophageal reflux disease) Qualifiers: Esophagitis presence: without esophagitis Qualified Code(s): K21.9 - Gastro-esophageal reflux disease without esophagitis Is this a current diagnosis for this admission?: Yes (10) Congestive heart failure Qualifiers: Congestive heart failure type: systolic Congestive heart failure chronicity: chronic Qualified Code(s): I50.22 - Chronic systolic ( congestive) heart failure Is this a current diagnosis for this admission?: Yes (11) Hyperlipidemia Qualifiers: Hyperlipidemia type: unspecified Qualified Code(s): E78.5 - Hyperlipidemia, unspecified Is this a current diagnosis for this admission?: Yes (12) HTN (hypertension) Qualifiers: Hypertension type: essential hypertension Qualified Code(s): I10 - Essential (primary) hypertension Is this a current diagnosis for this admission?: Yes (13) Bilateral diabetic foot ulcer associated with type 1 diabetes mellitus Is this a current diagnosis for this admission?: Yes (14) Peripheral neuropathy Qualifiers: Peripheral neuropathy type: polyneuropathy, unspecified Qualified Code(s): G62.9 - Polyneuropathy, unspecified Is this a current diagnosis for this admission?: Yes - Time Time Spent with patient: 25-34 minutes - Plan Summary Plan Summary: We will discontinue the vancomycin as per pharmacy recommendation due to inability to perform levels. In the meantime we will change it to intravenous Zyvox and discontinue any dextrose containing IV fluids. We will recheck creatinine WBC and electrolytes in the morning if the patient agrees. We will continue to monitor.
[2016-09-18] MEDS ORDERED: CEFAZOLIN 2 GM/D5W RTU 2 GM/50 ML RTUPB IV ONE (11:45)
[2016-09-18] MEDS ORDERED: LINEZOLID 600 MG RTU 300 ML IV ONE (12:00)
--- NOTE | 2016-09-18 12:44 | XCELERA REPORT ---
[address] [address] Transthoracic Echocardiogram Report Name: FLAG THIBODEAUX JR Age: 66 yrs Gender: Male : 1950 Patient Status: Inpatient Patient Location: 3N\S\301\S\A Study Date: 09/17/2016 10:00 AM Height: 73 in Weight: 215 lb BSA: 2.2 m2 Procedure: A two-dimensional transthoracic echocardiogram with color flow and Doppler was performed. Study Quality: Fair. Reason For Study: bacteremia, eval for endocarditis History: bacteremia, eval for endocarditis. Ordering Physician: SHONDA HARDY Performed By: Steph Zaman Interpretation Summary No defenite vegetations seen.But if still clinical suspcion then would get a PAM. The left ventricle is normal in size. There is normal left ventricular wall thickness. LV EF is 65% Left ventricular systolic function is normal. Doppler measurements suggest impaired left ventricular relaxation, which is associated with grade I/IV or mild diastolic dysfunction The left ventricular wall motion is normal. There is no thrombus. There is no ventricular septal defect visualized. The right ventricle is grossly normal size. Pacemaker lead in RA and RV. The right atrium is normal. The left atrium is mildly dilated. The interatrial septum is intact with no evidence for an atrial septal defect. There is no evidence of mitral valve prolapse. There is no vegetation seen on the mitral valve. There is no mitral valve stenosis. There is no mitral regurgitation noted. The aortic valve is trileaflet. The aortic valve opens well. There is no aortic valvular vegetation. There is no aortic valve stenosis There is no LVOT obstruction. There is no tricuspid valve vegetation. There is no tricuspid stenosis. There is a mild amount of tricuspid regurgitation There is mild pulmonary hypertension by echo RVSP is 38 to 43 mm of Hg , with RA mean of 5 to 10. There is no pulmonic valvular stenosis. There is no pulmonic valvular regurgitation. There is no pericardial effusion. No defenite vegetations seen.But if still clinical suspcion then would get a PAM. MMode/2D Measurements \T\ Calculations RVDd: 4.1 cm LVIDd: 5.2 cm FS: 36.2 % Ao root diam: 3.4 cm IVSd: 1.1 cm LVIDs: 3.3 cm EDV(Teich): 128.4 ml LVPWd: 1.1 cm ESV(Teich): 44.3 ml Ao root area: 8.9 cm2 EF(Teich): 65.5 % LA dimension: 4.3 cm Doppler Measurements \T\ Calculations MV E max bib: MV P1/2t max bib: Ao V2 max: LV V1 max P.8 cm/sec 88.4 cm/sec 160.8 cm/sec 5.1 mmHg MV A max bib: MV P1/2t: 93.9 msec Ao max PG: LV V1 max: 121.4 cm/sec 10.3 mmHg 112.5 cm/sec MV E/A: 0.73 MVA(P1/2t): 2.3 cm2 MV dec slope: 275.7 cm/sec2 MV dec time: 0.30 sec PA V2 max: TR max bib: 108.1 cm/sec 286.4 cm/sec PA max P.7 mmHgTR max P.8 mmHg Left Ventricle The left ventricle is normal in size. There is normal left ventricular wall thickness. LV EF is 65%. Left ventricular systolic function is normal. Doppler measurements suggest impaired left ventricular relaxation, which is associated with grade I/IV or mild diastolic dysfunction. The left ventricular wall motion is normal. There is no thrombus. There is no ventricular septal defect visualized. Right Ventricle The right ventricle is grossly normal size. Pacemaker lead in RA and RV. The right ventricular systolic function is normal. Atria The right atrium is normal. The left atrium is mildly dilated. The interatrial septum is intact with no evidence for an atrial septal defect. Mitral Valve There is no evidence of mitral valve prolapse. There is no vegetation seen on the mitral valve. There is no mitral valve stenosis. There is no mitral regurgitation noted. Aortic Valve The aortic valve is trileaflet. The aortic valve opens well. There is no aortic valvular vegetation. There is no aortic valve stenosis. There is no LVOT obstruction. No aortic regurgitation is present. Tricuspid Valve There is no tricuspid valve vegetation. There is no tricuspid stenosis. There is a mild amount of tricuspid regurgitation. There is mild pulmonary hypertension by echo. RVSP is 38 to 43 mm of Hg , with RA mean of 5 to 10. Pulmonic Valve There is no pulmonic valvular stenosis. There is no pulmonic valvular regurgitation. Great Vessels The aortic root is normal size. Effusions There is no pericardial effusion. : SHONDA HARDY > Yelitza Tatum
[2016-09-18] MEDS: SODIUM BICARBONATE 650 MG TABLET PO SCH ×2 (12:48→22:52)
--- NOTE | 2016-09-18 14:52 | PDOC TRANSFER SUMMARY ---
General Admission Date/PCP: 09/12/16 18:29 HYACINTH WELLS MD Admission Date: 09/12/16 Transfer Date: 09/19/16 Accepting Facility: [facility] Accepting Physician: Chris Weston MD Resuscitation Status: Full Code - Transfer Diagnosis (1) Sepsis Is this a current diagnosis for this admission?: Yes (2) Urinary tract infection Is this a current diagnosis for this admission?: Yes (3) Acute renal failure Is this a current diagnosis for this admission?: Yes (4) Pneumonia Is this a current diagnosis for this admission?: Yes (6) Acute blood loss anemia Is this a current diagnosis for this admission?: Yes (7) Gastritis Is this a current diagnosis for this admission?: Yes (8) Esophagitis Is this a current diagnosis for this admission?: Yes (9) Rhabdomyolysis Is this a current diagnosis for this admission?: Yes (10) GERD (gastroesophageal reflux disease) Is this a current diagnosis for this admission?: Yes (11) Congestive heart failure Is this a current diagnosis for this admission?: Yes (12) Hyperlipidemia Is this a current diagnosis for this admission?: Yes (13) HTN (hypertension) Is this a current diagnosis for this admission?: Yes (14) Bilateral diabetic foot ulcer associated with type 1 diabetes mellitus Is this a current diagnosis for this admission?: Yes (15) Peripheral neuropathy Is this a current diagnosis for this admission?: Yes - Transfer Medications Home Medications: Carvedilol [Coreg 25 mg Tablet] 25 mg PO Q12 09/12/16 Cilostazol 50 mg PO BID 09/12/16 Furosemide [Lasix] 40 mg PO QAM 09/12/16 Insulin Aspart [Novolog Flexpen] 4 unit SUBCUT AC 09/12/16 Sacubitril/Valsartan [Entresto 97 mg/103 mg Tablet] 1 tab PO Q12 09/12/16 Spironolactone [Aldactone 25 mg Tablet] 25 mg PO DAILY 09/12/16 Insulin Degludec [Tresiba Flextouch U-100] 18 unit SQ DAILY 09/17/16 Transfer Medications: Current Medications Acetaminophen (Tylenol 325 Mg Tablet) 325 mg PO Q4HP PRN PRN Reason: FOR PAIN OR TEMP Stop: 10/12/16 18:28 Last Admin: 09/17/16 03:17 Dose: 325 mg Albuterol (Ventolin 0.083% Neb 2.5 Mg/3 Ml Ampul) 2.5 mg NEB RTQ4HP PRN PRN Reason: FOR WHEEZING Stop: 10/12/16 18:28 Dextrose (Dextrose Inj 50% Syringe (25 Gm/50 Ml)) 12.5 gm IV PRN PRN; Protocol PRN Reason: FOR BG 50-69 IN ALERT PATIENT Stop: 10/12/16 18:35 Dextrose (Dextrose Inj 50% Syringe (25 Gm/50 Ml)) 25 gm IV PRN PRN PRN Reason: Protocol Stop: 10/12/16 18:35 Glucagon (Glucagen Inj 1 Mg Vial) 1 mg IM PRN PRN; Protocol PRN Reason: Evaluate for BG < 70 Stop: 10/12/16 18:35 Glucose (Glutose 40% Gel 15 Gm Tube) 15 gm PO PRN PRN; Protocol PRN Reason: FOR BG 50-69 IN ALERT PATIENT Stop: 10/12/16 18:35 Glucose (Glutose 40% Gel 15 Gm Tube) 30 gm PO PRN PRN; Protocol PRN Reason: FOR BG < 50 IN ALERT PATIENT Stop: 10/12/16 18:35 Linezolid (Zyvox Rtu 600 Mg/300 Ml Premixed) 300 mls @ 300 mls/hr IV Q12 [facility] Stop: 09/25/16 21:59 Sodium Chloride (Nacl 0.9% 1000 Ml Iv Soln) 1,000 mls @ 100 mls/hr IV CONTINUOUS PRN PRN Reason: THIS MED IS NOT "PRN" Stop: 10/18/16 14:24 Insulin Glargine (Lantus Insulin Inj 300 Unit/3 Ml Pen) 18 unit SUBCUT DAILY [facility] Stop: 10/15/16 09:59 Insulin Human Lispro (Humalog Insulin 100 Unit/1 Ml 3 Ml Vial) 0 - 12 unit SUBCUT ACHSP PRN PRN Reason: Protocol Stop: 10/12/16 18:35 Last Admin: 09/17/16 20:46 Dose: 12 unit Insulin Human Lispro (Humalog Insulin 100 Unit/1 Ml 3 Ml Vial) 5 unit SUBCUT MEALS [facility] Stop: 10/18/16 07:59 Lactulose (Cephulac Syrup 20 Gm/30 Ml Udcup) 20 gm PO Q6HP PRN PRN Reason: FOR CONSTIPATION Stop: 10/15/16 08:42 Lansoprazole (Prevacid 30 Mg Odt Tablet) 30 mg PO BID@0600,1700 [facility] Stop: 10/15/16 16:59 Last Admin: 09/18/16 05:27 Dose: Not Given Ondansetron HCl (Zofran Odt 4 Mg Tablet) 4 mg PO Q6HP PRN PRN Reason: FOR NAUSEA/VOMITING Stop: 10/12/16 18:28 Ondansetron HCl (Zofran Inj/Pf 4 Mg/2 Ml Sdv) 4 mg IV Q8HP PRN PRN Reason: FOR NAUSEA/VOMITING Stop: 10/12/16 18:28 Oxycodone HCl (Oxy-Ir 5 Mg Tablet) 5 mg PO Q6HP PRN PRN Reason: FOR PAIN Stop: 09/20/16 08:42 Last Admin: 09/16/16 18:46 Dose: 5 mg Sodium Bicarbonate (Sodium Bicarbonate 650 Mg Tablet) 1,300 mg PO Q12 [facility] Stop: 10/13/16 21:59 Last Admin: 09/18/16 12:48 Dose: 1,300 mg - Allergies Allergies/Adverse Reactions: Penicillins Allergy (Intermediate, Verified 01/01/16 12:14) swelling - Diet/Activity Discharge Diet: Cardiac, Diabetic Discharge Activity: Bedrest Hospital Course Hospital Course: The patient was admitted to the stepdown unit. The patient was begun on intravenous fluid, likewise broad-spectrum antibiotic was started with cefepime and Levaquin. Cultures were performed on the blood and urine. Chest x-ray shows possible pneumonia. Cultures were growing gram-positive cocci and vancomycin was added to the treatment regimen. Eventually the cultures revealed methicillin sensitive Staphylococcus aureus on both blood culture sets as well as on the urine. 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 Infectious disease at [facility] was contacted and the recommendation of repeating cultures be made as well as IV antibiotics for 4 weeks. The patient also has a wound on the second toe of the right foot and therefore surgery was consulted and performed a debridement as well as incision and drainage for which culture was sent on the specimen collected. Course was noted for anemia and heme positive stools where surgery performed an upper endoscopy showing esophagitis and gastritis. The patient was maintained on proton pump inhibitor. PICC line placement was held until the repeat blood cultures returned negative. However the cultures again grew gram-positive cocci and the wound culture likewise growing gram-positive cocci. Despite being on vancomycin the patient remains bacteremic and the 2D echocardiogram obtained was inconclusive but clerical associate reported presence of defibrillator leads, therefore needs transesophageal echocardiogram for further evaluation. Course was also noted for vascular congestion requiring diuretics and uncontrolled blood sugars requiring resumption of his home basal insulin as well as prandial coverage with sliding scale insulin as well. At this point because of the persistent bacteremia, [facility] was contacted for transfer as the patient needs transesophageal echocardiogram as well as infectious disease specialist evaluation. Dr. Chris Weston from the hospitalist service accepted the patient for transfer. Of note the patient's antibiotic vancomycin was shifted to intravenous Zyvox as the patient refused blood works 09/18/2016 and pharmacy recommended to discontinue the vancomycin as levels will be on monitored. Also of note, the patient presented with acute renal failure and with hydration the patient's creatinine significantly improved from around 4.8 down to 1.7. Physical Exam Vital Signs: Temp Pulse Resp BP Pulse Ox 100.2 F 85 24 H 171/84 H 95 09/17/16 20:55 09/18/16 14:00 09/17/16 20:55 09/17/16 20:55 09/17/16 20:55 Intake & Output 09/17/16 09/18/16 09/19/16 06:59 06:59 06:59 Intake Total 1576 1032 Output Total 3050 1000 Balance -1474 32 Weight 97 kg General appearance: PRESENT: no acute distress Head exam: PRESENT: normocephalic Eye exam: PRESENT: EOMI Mouth exam: PRESENT: moist, neck supple Neck exam: ABSENT: JVD Respiratory exam: PRESENT: clear to auscultation nathan. ABSENT: rhonchi, wheezes Cardiovascular exam: PRESENT: RRR. ABSENT: gallop GI/Abdominal exam: PRESENT: soft. ABSENT: distended, tenderness Extremities exam: PRESENT: other - Trace lower extremity edema, wound dressings in the foot clean and dry Neurological exam: PRESENT: alert, awake, oriented to situation Skin exam: PRESENT: dry, warm. ABSENT: cyanosis Results Laboratory Results: 09/17/16 03:54 09/17/16 03:54 09/13/16 09/13/16 09/15/16 04:04 04:04 04:08 Creatine Kinase 2696 H 559 H CK-MB (CK-2) 5.67 H 09/17/16 03:54 Creatine Kinase 133 CK-MB (CK-2) Impressions: Chest X-Ray 09/12/16 16:02 IMPRESSION: NO ACUTE RADIOGRAPHIC FINDING IN THE CHEST. Abdomen/Pelvis CT 09/12/16 16:25 IMPRESSION: 1. Mild diverticulosis coli with no acute inflammatory changes. 2. Lumbar degenerative changes. Chest CT 09/12/16 16:25 IMPRESSION: 1. There is ground-glass opacification in both lower lobes suggestive of bilateral pneumonitis. 2. Degenerative disc changes and spondylosis in the lower lumbar spine. 3. There is a small pericardial effusion. Head CT 09/12/16 16:33 IMPRESSION: There is evidence of chronic microvascular ischemic change characterized by a decreased attenuation in the white matter of the right occipital lobe. There is no significant interval change. No acute intracranial pathology is seen. Plan Discharge Plan: Transferred to [facility] for further evaluation and management. Time Spent: Less than 30 Minutes
[2016-09-18 16:21] LABS: ANION GAP 11 (5-19); BLOOD UREA NITROGEN 87 mg/dL (7-20); CALCIUM 8.1 mg/dL (8.4-10.2); CARBON DIOXIDE 19 mmol/L (22-30); CHLORIDE 111 mmol/L (98-107); CREATININE RESULT 1.88 mg/dL (0.52-1.25); GLUCOSE 325 mg/dL (75-110); POTASSIUM 4.4 mmol/L (3.6-5.0); SODIUM 141.4 mmol/L (137-145)
[2016-09-18 17:07] LABS: HEMATOCRIT 24.1 % (37.9-51.0); HEMOGLOBIN 8.1 g/dL (13.5-17.0); HGB HCT DIFFERENCE 0.2; MEAN CORPUSCULAR HEMOGLOBIN 28.4 pg (27.0-33.4); MEAN CORPUSCULAR HGB CONC 33.5 g/dL (32.0-36.0); MEAN CORPUSCULAR VOLUME 85 fl (80-97); RED BLOOD COUNT 2.84 10^6/uL (4.35-5.55); RED CELL DISTRIBUTION WIDTH 14.1 % (11.5-14.0); WHITE BLOOD COUNT 23.5 10^3/uL (4.0-10.5)
[2016-09-18 17:28] LABS: BAND NEUTROPHILS % (MANUAL) 1 % (3-5); BASOPHILS % (MANUAL) 0 % (0-2); EOSINOPHILS % (MANUAL) 0 % (0-6); HYPOCHROMASIA SLIGHT; LYMPHOCYTES % (MANUAL) 3 % (13-45); POIKILOCYTOSIS SLIGHT; POLYCHROMASIA SLIGHT; SCHISTOCYTES SLIGHT; TOTAL CELLS COUNTED 100
[2016-09-18] MEDS: NORMAL SALINE 1000 ML 1,000 ML IV PRN (17:59)
[2016-09-18] MEDS ORDERED: CEFAZOLIN 2 GM/D5W RTU 2 GM/50 ML RTUPB IV SCH (18:00)
[2016-09-18] MEDS: LINEZOLID 600 MG RTU 300 ML IV SCH (22:52)
[2016-09-19 05:07] LABS: HEMATOCRIT 21.8 % (37.9-51.0); HGB HCT DIFFERENCE 0.4; MEAN CORPUSCULAR HEMOGLOBIN 28.3 pg (27.0-33.4); MEAN CORPUSCULAR HGB CONC 33.9 g/dL (32.0-36.0); MEAN CORPUSCULAR VOLUME 84 fl (80-97); RED BLOOD COUNT 2.61 10^6/uL (4.35-5.55); WHITE BLOOD COUNT 20.6 10^3/uL (4.0-10.5)
[2016-09-19] MEDS: LANSOPRAZOLE 30 MG TAB.RAP.DR PO SCH ×2 (05:21→17:56)
[2016-09-19 05:25] LABS: HEMOGLOBIN 7.4 g/dL (13.5-17.0)
[2016-09-19 05:27] LABS: ANION GAP 12 (5-19); BLOOD UREA NITROGEN 90 mg/dL (7-20); CALCIUM 7.9 mg/dL (8.4-10.2); CARBON DIOXIDE 19 mmol/L (22-30); CHLORIDE 112 mmol/L (98-107); CREATININE RESULT 2.29 mg/dL (0.52-1.25); GLUCOSE 244 mg/dL (75-110); SODIUM 142.5 mmol/L (137-145)
[2016-09-19] MEDS ORDERED: NORMAL SALINE 250 ML IV PRN ×4 (08:23→12:53)
[2016-09-19] MEDS ORDERED: FUROSEMIDE INJ/PF 40 MG/4 ML SDV IV PRN (08:23)
[2016-09-19] MEDS ORDERED: TRAMADOL HCL 50 MG TABLET PO PRN (08:25)
--- NOTE | 2016-09-19 08:32 | PDOC PROGRESS REPORT ---
Subjective Progress Note for:: 09/19/16 Subjective:: Patient still with some agitation at night and reportedly refused some medications and nursing care. Reported confusion as well. Fever however is better. No reported diarrhea. When asked patient seems to be okay but patient does not verbalize. Sister at bedside. Reports possible sundowning. Patient able to eat as per staff but less. His creatinine is worse, hemoglobin dropped probably dilutional. No respiratory distress or discomfort reported however. Patient accepted by [facility] for transfer for ID services as well as transesophageal echocardiogram. Physical Exam Vital Signs: Temp Pulse Resp BP Pulse Ox 99.3 F 80 20 142/64 H 99 09/19/16 07:18 09/19/16 07:18 09/19/16 07:18 09/19/16 07:18 09/19/16 07:18 Intake & Output 09/18/16 09/19/16 09/20/16 06:59 06:59 06:59 Intake Total 1032 1900 Output Total 1000 300 Balance 32 1600 General appearance: PRESENT: no acute distress Head exam: PRESENT: normocephalic Eye exam: PRESENT: EOMI Mouth exam: PRESENT: moist, neck supple Neck exam: ABSENT: JVD Respiratory exam: PRESENT: clear to auscultation nathan. ABSENT: rhonchi, wheezes Cardiovascular exam: PRESENT: RRR. ABSENT: gallop GI/Abdominal exam: PRESENT: normal bowel sounds, soft. ABSENT: distended Extremities exam: PRESENT: other - Trace lower extremity edema, toe dressing clean, no foul-smelling drainage noted. Neurological exam: PRESENT: alert, awake Skin exam: PRESENT: dry, warm. ABSENT: cyanosis Results Laboratory Results: 09/19/16 04:14 09/19/16 04:14 09/18/16 09/18/16 09/18/16 15:02 15:02 15:02 WBC Cancelled RBC Cancelled Hgb Cancelled Hct Cancelled MCV Cancelled MCH Cancelled MCHC Cancelled RDW Cancelled Plt Count Cancelled Seg Neutrophils % Cancelled Lymphocytes % Cancelled Monocytes % Cancelled Eosinophils % Cancelled Basophils % Cancelled Absolute Neutrophils Cancelled Absolute Lymphocytes Cancelled Absolute Monocytes Cancelled Absolute Eosinophils Cancelled Absolute Basophils Cancelled Sodium Cancelled Potassium Cancelled Chloride Cancelled Carbon Dioxide Cancelled Anion Gap Cancelled BUN Cancelled Creatinine Cancelled Est GFR ( Amer) Cancelled Est GFR (Non-Af Amer) Cancelled Glucose Cancelled Calcium Cancelled 7.7 L 09/18/16 09/18/16 09/19/16 15:51 16:42 04:14 WBC 23.5 H 20.6 H RBC 2.84 L 2.61 L Hgb 8.1 L 7.4 L Hct 24.1 L 21.8 L MCV 85 84 MCH 28.4 28.3 MCHC 33.5 33.9 RDW 14.1 H 14.0 Plt Count 312 300 Seg Neutrophils % Not Reportable Lymphocytes % Not Reportable Monocytes % Not Reportable Eosinophils % Not Reportable Basophils % Not Reportable Absolute Neutrophils Not Reportable Absolute Lymphocytes Not Reportable Absolute Monocytes Not Reportable Absolute Eosinophils Not Reportable Absolute Basophils Not Reportable Sodium 141.4 Potassium 4.4 Chloride 111 H Carbon Dioxide 19 L Anion Gap 11 BUN 87 H Creatinine 1.88 H Est GFR ( Amer) 44 L Est GFR (Non-Af Amer) 36 L Glucose 325 H Calcium 8.1 L 09/19/16 04:14 WBC RBC Hgb Hct MCV MCH MCHC RDW Plt Count Seg Neutrophils % Lymphocytes % Monocytes % Eosinophils % Basophils % Absolute Neutrophils Absolute Lymphocytes Absolute Monocytes Absolute Eosinophils Absolute Basophils Sodium 142.5 Potassium 4.0 Chloride 112 H Carbon Dioxide 19 L Anion Gap 12 BUN 90 H Creatinine 2.29 H Est GFR ( Amer) 35 L Est GFR (Non-Af Amer) 29 L Glucose 244 H Calcium 7.9 L 09/13/16 09/13/16 09/15/16 04:04 04:04 04:08 Creatine Kinase 2696 H 559 H CK-MB (CK-2) 5.67 H 09/17/16 03:54 Creatine Kinase 133 CK-MB (CK-2) Impressions: Chest X-Ray 09/12/16 16:02 IMPRESSION: NO ACUTE RADIOGRAPHIC FINDING IN THE CHEST. Abdomen/Pelvis CT 09/12/16 16:25 IMPRESSION: 1. Mild diverticulosis coli with no acute inflammatory changes. 2. Lumbar degenerative changes. Chest CT 09/12/16 16:25 IMPRESSION: 1. There is ground-glass opacification in both lower lobes suggestive of bilateral pneumonitis. 2. Degenerative disc changes and spondylosis in the lower lumbar spine. 3. There is a small pericardial effusion. Head CT 05/25/17 16:33 IMPRESSION: There is evidence of chronic microvascular ischemic change characterized by a decreased attenuation in the white matter of the right occipital lobe. There is no significant interval change. No acute intracranial pathology is seen. Assessment & Plan - Diagnosis (1) Sepsis Qualifiers: Sepsis type: sepsis due to unspecified organism Qualified Code(s): A41.9 - Sepsis, unspecified organism Is this a current diagnosis for this admission?: Yes (2) Urinary tract infection Qualifiers: Urinary tract infection type: site unspecified Hematuria presence: without hematuria Qualified Code(s): N39.0 - Urinary tract infection, site not specified Is this a current diagnosis for this admission?: Yes (3) Acute renal failure Qualifiers: Acute renal failure type: unspecified Qualified Code(s): N17.9 - Acute kidney failure, unspecified Is this a current diagnosis for this admission?: Yes (4) Pneumonia Qualifiers: Pneumonia type: due to unspecified organism Laterality: bilateral Lung location: lower lobe of lung Qualified Code(s): J18.9 - Pneumonia, unspecified organism Is this a current diagnosis for this admission?: Yes (6) Acute blood loss anemia Is this a current diagnosis for this admission?: Yes (7) Gastritis Qualifiers: Gastritis bleeding: presence of bleeding unspecified Is this a current diagnosis for this admission?: Yes (8) Esophagitis Is this a current diagnosis for this admission?: Yes (9) Rhabdomyolysis Qualifiers: Rhabdomyolysis type: non-traumatic Qualified Code(s): M62.82 - Rhabdomyolysis Is this a current diagnosis for this admission?: Yes (10) GERD (gastroesophageal reflux disease) Qualifiers: Esophagitis presence: without esophagitis Qualified Code(s): K21.9 - Gastro-esophageal reflux disease without esophagitis Is this a current diagnosis for this admission?: Yes (11) Congestive heart failure Qualifiers: Congestive heart failure type: systolic Congestive heart failure chronicity: chronic Qualified Code(s): I50.22 - Chronic systolic ( congestive) heart failure Is this a current diagnosis for this admission?: Yes (12) Hyperlipidemia Qualifiers: Hyperlipidemia type: unspecified Qualified Code(s): E78.5 - Hyperlipidemia, unspecified Is this a current diagnosis for this admission?: Yes (13) HTN (hypertension) Qualifiers: Hypertension type: essential hypertension Qualified Code(s): I10 - Essential (primary) hypertension Is this a current diagnosis for this admission?: Yes (14) Bilateral diabetic foot ulcer associated with type 1 diabetes mellitus Is this a current diagnosis for this admission?: Yes (15) Peripheral neuropathy Qualifiers: Peripheral neuropathy type: polyneuropathy, unspecified Qualified Code(s): G62.9 - Polyneuropathy, unspecified Is this a current diagnosis for this admission?: Yes - Time Time Spent with patient: 25-34 minutes - Plan Summary Plan Summary: Transfuse 2 units of packed RBC. Continue intravenous hydration. Continue current antibiotics. Monitor WBC platelet count and creatinine. Awaiting bed at tertiary care facility. Patient refusing work-ups again. Daughter who has POA makes the decision for him. Options of giving benzodiazepine and anti-psychotics discussed and agreed. We will try ativan first, then if not, we will give haldol. Cultures of the wound came back as well as the repeat blood cultures, w/c is MSSA, likely endocarditis. He tolerated a dose of ancef and cefepime prior. He has allergies to PCN and he has renal failure. We will begin cephalosphorin for possible endocarditis. Await bed at tertiary facility.
[2016-09-19] MEDS: SODIUM BICARBONATE 650 MG TABLET PO SCH ×2 (09:29→22:50)
[2016-09-19] MEDS: INSULIN GLARGINE,HUM.REC.ANLOG 300 UNIT/3 ML INSULN.PEN SUBCUT SCH (09:29)
[2016-09-19] MEDS: INSULIN LISPRO 100 UNIT/ML 3 ML VIAL SUBCUT SCH ×3 (09:29→17:57)
--- NOTE | 2016-09-19 10:19 | Progress Note ---
Provider Note Provider Note: September 19, 2016, 1:50 AM: Just prior to midnight on the , I was contacted by patient's floor nurse that patient had refused all nursing care, including medications, and Accu- Cheks. Had become rather agitated and somewhat aggressive whenever nursing staff approached him. At above time, I went to his bedside with his floor nurse Kaylin. Sister present. Patient initially asleep. When aroused, he became somewhat angry and refused to answer questions and, again, refused to allow nursing staff to provide any care whatsoever, including vital signs. I instructed his floor nurse to please document this in her records and to sign a refusal of care form. Again, sister present at side. Sister stated could add nothing further, including any advice as to how to change his mind. Above subsequently discussed with day hospitalist team.
[2016-09-19] MEDS: LORAZEPAM INJ 2 MG/1 ML VIAL IV PRN ×2 (13:27→22:42)
[2016-09-19] MEDS: LINEZOLID 600 MG RTU 300 ML IV SCH (13:27)
[2016-09-19] MEDS: NORMAL SALINE 1000 ML 1,000 ML IV PRN (14:13)
[2016-09-20] MEDS: CEFAZOLIN 2 GM/D5W RTU 2 GM/50 ML RTUPB IV SCH ×3 (02:32→21:38)
[2016-09-20] MEDS: LANSOPRAZOLE 30 MG TAB.RAP.DR PO SCH ×2 (05:17→18:31)
[2016-09-20] MEDS: LORAZEPAM INJ 2 MG/1 ML VIAL IV PRN ×2 (06:28→12:09)
[2016-09-20 06:31] LABS: HEMATOCRIT 29.2 % (37.9-51.0); HGB HCT DIFFERENCE 0.8; MEAN CORPUSCULAR HEMOGLOBIN 28.3 pg (27.0-33.4); MEAN CORPUSCULAR HGB CONC 34.3 g/dL (32.0-36.0); MEAN CORPUSCULAR VOLUME 83 fl (80-97); RED BLOOD COUNT 3.53 10^6/uL (4.35-5.55); RED CELL DISTRIBUTION WIDTH 15.6 % (11.5-14.0); WHITE BLOOD COUNT 22.9 10^3/uL (4.0-10.5)
[2016-09-20 06:45] LABS: ANION GAP 13 (5-19); BLOOD UREA NITROGEN 100 mg/dL (7-20); CALCIUM 7.8 mg/dL (8.4-10.2); CARBON DIOXIDE 17 mmol/L (22-30); CHLORIDE 113 mmol/L (98-107); CREATININE RESULT 2.43 mg/dL (0.52-1.25); GLUCOSE 178 mg/dL (75-110); POTASSIUM 4.4 mmol/L (3.6-5.0); SODIUM 142.5 mmol/L (137-145)
--- NOTE | 2016-09-20 08:40 | PDOC PROGRESS REPORT ---
Subjective Progress Note for:: 09/20/16 Subjective:: Patient started on Ativan and help him relax. 2 units of packed RBC was transfused. Still with low-grade fever. Awaiting bed at tertiary facility. No reported diarrhea. No reported nausea or vomiting. No reported respiratory distress but noted with slight increase in respirations. Patient still refuses to be touched and examined intermittently. Physical Exam Vital Signs: Temp Pulse Resp BP Pulse Ox 99.9 F 86 24 H 154/71 H 96 09/20/16 04:10 09/20/16 07:00 09/20/16 04:10 09/20/16 04:10 09/20/16 04:10 Intake & Output 09/19/16 09/20/16 09/21/16 06:59 06:59 06:59 Intake Total 1900 2522 Output Total 300 1100 Balance 1600 1422 Weight 93.5 kg General appearance: PRESENT: no acute distress. ABSENT: cooperative Head exam: PRESENT: normocephalic Eye exam: PRESENT: EOMI Mouth exam: PRESENT: moist, neck supple Neck exam: ABSENT: JVD Extremities exam: PRESENT: other - Lower extremity edema unchanged. Wound dressing on the right foot clean. No foul-smelling drainage noted. Neurological exam: PRESENT: other - Lethargic but arousable. Patient received Ativan earlier. Skin exam: ABSENT: cyanosis Results Laboratory Results: 09/20/16 05:20 09/20/16 05:20 09/18/16 09/19/16 09/20/16 15:02 14:28 05:20 WBC Cancelled 22.9 H RBC Cancelled 3.53 L Hgb Cancelled 10.0 L D Hct Cancelled 29.2 L MCV Cancelled 83 MCH Cancelled 28.3 MCHC Cancelled 34.3 RDW Cancelled 15.6 H Plt Count Cancelled 332 Seg Neutrophils % Cancelled Lymphocytes % Cancelled Monocytes % Cancelled Eosinophils % Cancelled Basophils % Cancelled Absolute Neutrophils Cancelled Absolute Lymphocytes Cancelled Absolute Monocytes Cancelled Absolute Eosinophils Cancelled Absolute Basophils Cancelled Sodium Potassium Chloride Carbon Dioxide Anion Gap BUN Creatinine Est GFR ( Amer) Est GFR (Non-Af Amer) Glucose Calcium Blood Type B POSITIVE Antibody Screen NEGATIVE 09/20/16 05:20 WBC RBC Hgb Hct MCV MCH MCHC RDW Plt Count Seg Neutrophils % Lymphocytes % Monocytes % Eosinophils % Basophils % Absolute Neutrophils Absolute Lymphocytes Absolute Monocytes Absolute Eosinophils Absolute Basophils Sodium 142.5 Potassium 4.4 Chloride 113 H Carbon Dioxide 17 L Anion Gap 13 BUN 100 H Creatinine 2.43 H Est GFR ( Amer) 33 L Est GFR (Non-Af Amer) 27 L Glucose 178 H Calcium 7.8 L Blood Type Antibody Screen 09/16/16 11:33 Blood Blood Culture - Final Staphylococcus Aureus 09/16/16 12:16 Blood Blood Culture - Final Staphylococcus Aureus 09/17/16 06:10 Toe - Left Second Gram Stain - Final 09/17/16 06:10 Toe - Left Second Wound Culture - Final Staphylococcus Aureus No Anaerobic Organisms 09/13/16 09/13/16 09/15/16 04:04 04:04 04:08 Creatine Kinase 2696 H 559 H CK-MB (CK-2) 5.67 H 09/17/16 03:54 Creatine Kinase 133 CK-MB (CK-2) Impressions: Chest X-Ray 09/12/16 16:02 IMPRESSION: NO ACUTE RADIOGRAPHIC FINDING IN THE CHEST. Abdomen/Pelvis CT 09/12/16 16:25 IMPRESSION: 1. Mild diverticulosis coli with no acute inflammatory changes. 2. Lumbar degenerative changes. Chest CT 09/12/16 16:25 IMPRESSION: 1. There is ground-glass opacification in both lower lobes suggestive of bilateral pneumonitis. 2. Degenerative disc changes and spondylosis in the lower lumbar spine. 3. There is a small pericardial effusion. Head CT 09/12/16 16:33 IMPRESSION: There is evidence of chronic microvascular ischemic change characterized by a decreased attenuation in the white matter of the right occipital lobe. There is no significant interval change. No acute intracranial pathology is seen. Assessment & Plan - Diagnosis (1) Sepsis Qualifiers: Sepsis type: sepsis due to unspecified organism Qualified Code(s): A41.9 - Sepsis, unspecified organism Is this a current diagnosis for this admission?: Yes (2) Urinary tract infection Qualifiers: Urinary tract infection type: site unspecified Hematuria presence: without hematuria Qualified Code(s): N39.0 - Urinary tract infection, site not specified Is this a current diagnosis for this admission?: Yes (3) Acute renal failure Qualifiers: Acute renal failure type: unspecified Qualified Code(s): N17.9 - Acute kidney failure, unspecified Is this a current diagnosis for this admission?: Yes (4) Pneumonia Qualifiers: Pneumonia type: due to unspecified organism Laterality: bilateral Lung location: lower lobe of lung Qualified Code(s): J18.9 - Pneumonia, unspecified organism Is this a current diagnosis for this admission?: Yes (6) Acute blood loss anemia Is this a current diagnosis for this admission?: Yes (7) Gastritis Qualifiers: Gastritis bleeding: presence of bleeding unspecified Is this a current diagnosis for this admission?: Yes (8) Esophagitis Is this a current diagnosis for this admission?: Yes (9) Rhabdomyolysis Qualifiers: Rhabdomyolysis type: non-traumatic Qualified Code(s): M62.82 - Rhabdomyolysis Is this a current diagnosis for this admission?: Yes (10) GERD (gastroesophageal reflux disease) Qualifiers: Esophagitis presence: without esophagitis Qualified Code(s): K21.9 - Gastro-esophageal reflux disease without esophagitis Is this a current diagnosis for this admission?: Yes (11) Congestive heart failure Qualifiers: Congestive heart failure type: systolic Congestive heart failure chronicity: chronic Qualified Code(s): I50.22 - Chronic systolic ( congestive) heart failure Is this a current diagnosis for this admission?: Yes (12) Hyperlipidemia Qualifiers: Hyperlipidemia type: unspecified Qualified Code(s): E78.5 - Hyperlipidemia, unspecified Is this a current diagnosis for this admission?: Yes (13) HTN (hypertension) Qualifiers: Hypertension type: essential hypertension Qualified Code(s): I10 - Essential (primary) hypertension Is this a current diagnosis for this admission?: Yes (14) Bilateral diabetic foot ulcer associated with type 1 diabetes mellitus Is this a current diagnosis for this admission?: Yes (15) Peripheral neuropathy Qualifiers: Peripheral neuropathy type: polyneuropathy, unspecified Qualified Code(s): G62.9 - Polyneuropathy, unspecified Is this a current diagnosis for this admission?: Yes - Time Time Spent with patient: 25-34 minutes - Plan Summary Plan Summary: We are awaiting bed at [facility]. Continue IV hydration. Recheck WBC in the morning. Monitor creatinine. Continue current antibiotic to cover for possible endocarditis. This was discussed briefly with the on-call scenario writer who had examined his echocardiogram. In the meantime we will obtain a chest x-ray to check for congestion. He has a good urine output today compared to yesterday. He may need diuretics. Continue supportive care. Still no Bed at [facility]. [facility] contacted. Case discussed w/ Dr. Schumacher, hospitalist service who accepted the patient.
--- NOTE | 2016-09-20 09:30 | RADIOLOGY REPORT (SQ) ---
EXAM DESCRIPTION: CHEST SINGLE VIEW COMPLETED DATE/TIME: 09/20/2016 9:12 am REASON FOR STUDY: shortness of breath COMPARISON: 09/12/2016 EXAM PARAMETERS: NUMBER OF VIEWS: One view. TECHNIQUE: Single frontal radiographic view of the chest acquired. RADIATION DOSE: NA LIMITATIONS: The patient is slightly rotated on the current study. FINDINGS: LUNGS AND PLEURA: No opacities, masses or pneumothorax. No pleural effusion. Minimal line ar density is identified in the left mid lung feel most consistent with subsegmental atelectasis. MEDIASTINUM AND HILAR STRUCTURES: No masses. Contour normal. HEART AND VASCULAR STRUCTURES: The configuration of the heart and mediastinal structures is unchanged BONES: No acute findings. HARDWARE: AICD device is unchanged in position. OTHER: No other significant finding. IMPRESSION: No significant interval change. No acute findings. Other findings as noted above TECHNICAL DOCUMENTATION: JOB ID: [id number]
[2016-09-20] MEDS: INSULIN GLARGINE,HUM.REC.ANLOG 300 UNIT/3 ML INSULN.PEN SUBCUT SCH (10:03)
[2016-09-20] MEDS: SODIUM BICARBONATE 650 MG TABLET PO SCH (10:08)
[2016-09-20] MEDS: INSULIN LISPRO 100 UNIT/ML 3 ML VIAL SUBCUT SCH ×3 (10:11→18:31)
[2016-09-20] MEDS ORDERED: NORMAL SALINE 500 ML IV ONE (18:00)
[2016-09-20] MEDS ORDERED: NORMAL SALINE 1000 ML 1,000 ML IV PRN (18:31)
[2016-09-20 20:26] VITALS: BP 160/75
[2016-09-20] MEDS ORDERED: LORAZEPAM INJ 2 MG/1 ML VIAL ONE (21:06)
== END 2016-09-20 21:57 | disposition short-term general hospital (02) | DRG 853 ==
LOC: ER 15:56 → EH 18:29 → UNDOADMIN 18:49 → 3N 22:33
PROVIDERS: ADMIT Internal Medicine; ATTEND Internal Medicine
PROC: 0DB28ZX Excision of Middle Esophagus, Via Natural or Artificial Opening Endoscopic, Diagnostic (ICD-10-PCS; 2016-09-13)
PROC: 0DB68ZX Excision of Stomach, Via Natural or Artificial Opening Endoscopic, Diagnostic (ICD-10-PCS; 2016-09-13)
PROC: 0DB38ZX Excision of Lower Esophagus, Via Natural or Artificial Opening Endoscopic, Diagnostic (ICD-10-PCS; 2016-09-13)
PROC: 0JBQ0ZZ Excision of Right Foot Subcutaneous Tissue and Fascia, Open Approach (ICD-10-PCS; principal; 2016-09-16)
PROC: 0J9Q0ZZ Drainage of Right Foot Subcutaneous Tissue and Fascia, Open Approach (ICD-10-PCS; 2016-09-16)
PROC: 30233N1 Transfusion of Nonautologous Red Blood Cells into Peripheral Vein, Percutaneous Approach (ICD-10-PCS; 2016-09-19)
DX: A41.9 Sepsis, unspecified organism (principal); J18.9 Pneumonia, unspecified organism; L02.611 Cutaneous abscess of right foot; N17.9 Acute kidney failure, unspecified; N39.0 Urinary tract infection, site not specified; D62 Acute posthemorrhagic anemia; M62.82 Rhabdomyolysis; I13.0 Hypertensive heart and chronic kidney disease with heart failure and stage 1 through stage 4 chronic kidney disease, or unspecified chronic kidney disease; I50.22 Chronic systolic (congestive) heart failure; E11.22 Type 2 diabetes mellitus with diabetic chronic kidney disease; N18.2 Chronic kidney disease, stage 2 (mild); E86.0 Dehydration; E11.319 Type 2 diabetes mellitus with unspecified diabetic retinopathy without macular edema; E11.42 Type 2 diabetes mellitus with diabetic polyneuropathy; E11.621 Type 2 diabetes mellitus with foot ulcer; K29.70 Gastritis, unspecified, without bleeding; K20.9 Esophagitis, unspecified; K21.9 Gastro-esophageal reflux disease without esophagitis; E78.5 Hyperlipidemia, unspecified; M19.90 Unspecified osteoarthritis, unspecified site; Z79.4 Long term (current) use of insulin; Z79.899 Other long term (current) drug therapy; Z86.14 Personal history of Methicillin resistant Staphylococcus aureus infection; Z95.810 Presence of automatic (implantable) cardiac defibrillator; F17.210 Nicotine dependence, cigarettes, uncomplicated; Z88.0 Allergy status to penicillin
CPT/HCPCS: 36415; 36430; 43239; 51702; 70450; 71010; 71250; 74176; 80048; 80053; 80307; 81001; 82272; 82310; 82550; 82553; 82803; 82962; 83605; 83735; 84484; 85025; 85027; 85610; 86850; 86900; 86901; 86920; 87040; 87070; 87075; 87077; 87086; 87088; 87186; 87205; 88305; 88312; 88342; 93005; 93010; 93306; 96361; 96365; 96375; 99291; 99292; J0171; J0690; J0692; J1610; J1815; J1940; J1956; J2020; J2060; J2250; J2310; J2405; J2765; J3010; J3370; J3490; J7030; J7040; J7060; J7120; P9016; S0164

== ENCOUNTER 2016-10-08 14:54 | Emergency (ER) | payer MEDICARE ==
--- NOTE | 2016-10-08 15:30 | ER Document Report ---
ED GI/ - General Stated Complaint: VOMITING Time Seen by Provider: 10/08/16 15:00 Information source: Patient Notes: Patient is a 66-year-old male with past medical history that is extensive including a recent discharge 1 week ago after a prolonged stay for sepsis and acute renal failure. Patient also had his pacemaker removed secondary to possible seeding of the infection. They did not replace the pacemaker as they believed his heart was strong enough that he no longer needed this according to the patient's sister and care provider. Patient presents with EMS, and the sister, at the patient was sent here from the primary doctor's office after the patient started to vomit. Patient supposedly has had no normal bowel movements for around 1 week. Patient started to feel nauseous last evening and then vomited today 2. Patient has had no fevers, obvious pain with urination, and did have a very small bowel movement earlier today. Presently the patient has never had a history of bowel obstructions. TRAVEL OUTSIDE OF THE [place] IN LAST 30 DAYS: No - HPI Patient complains to provider of: Vomiting Onset: Other - See above Timing/Duration: Sudden Quality of pain: Dull Severity at maximum: Moderate Severity in ED: Almost gone Pain Level: 1 Location: Other - See above Sexual history: Inactive Associated symptoms: Other - See above Exacerbated by: Denies Relieved by: Denies Similar symptoms previously: No Recently seen / treated by doctor: Yes - Related Data Allergies/Adverse Reactions: Penicillins Allergy (Intermediate, Verified 01/01/16 12:14) swelling Past Medical History - General Information source: Patient, Relative - Social History Smoking Status: Unknown if Ever Smoked Cigarette use (# per day): No Chew tobacco use (# tins/day): No Smoking Education Provided: No Frequency of alcohol use: None Drug Abuse: None Family History: Reviewed & Not Pertinent - Past Medical History Cardiac Medical History: Reports: Hx Congestive Heart Failure - Chronic systolic , Hx Hypercholesterolemia, Hx Hypertension Denies: Hx Coronary Artery Disease, Hx Heart Attack Pulmonary Medical History: Denies: Hx Asthma, Hx Bronchitis, Hx COPD, Hx Pneumonia, Hx Tuberculosis Neurological Medical History: Denies: Hx Cerebrovascular Accident, Hx Seizures Endocrine Medical History: Reports: Hx Diabetes Mellitus Type 2 Renal/ Medical History: Denies: Hx Peritoneal Dialysis GI Medical History: Reports: Hx Gastroesophageal Reflux Disease Musculoskeltal Medical History: Reports Hx Arthritis Psychiatric Medical History: Denies: Hx Depression Infectious Medical History: Reports: Hx MRSA Past Surgical History: Reports: Hx Internal Defibrillator. Denies: Hx Pacemaker - Immunizations Hx Diphtheria, Pertussis, Tetanus Vaccination: Yes Hx Pneumococcal Vaccination: 01/19/11 Review of Systems - Review of Systems Constitutional: denies: Fever EENT: denies: Eye discharge, Nose discharge Cardiovascular: denies: Chest pain, Palpitations, Heart racing Respiratory: denies: Cough, Hurts to breathe, Short of breath Gastrointestinal: Vomiting, Constipation. denies: Diarrhea Genitourinary: denies: Dysuria Musculoskeletal: Leg swelling - Much improved from previous Skin: Other - no hives. denies: Rash Neurological/Psychological: Other - no slurred speech -: Yes All other systems reviewed and negative Physical Exam - Vital signs Notes: Reviewed vital signs and nursing note as charted by RN. CONSTITUTIONAL: Alert and oriented; responds appropriately to questions with some slight confusion which is baseline according to the sister HEAD: Normocephalic; atraumatic EYES: PERRL ENT: Normal nose; no rhinorrhea; moist mucous membranes; pharynx without lesions noted NECK: Supple without meningismus; non-tender CARD: Regular rate and rhythm; no murmurs, no clicks, no rubs, no gallops; symmetric distal pulses RESP: Normal chest excursion without splinting or tachypnea; breath sounds clear and equal bilaterally; no wheezes, no rhonchi, no rales ABD/GI: Normal bowel sounds; non-distended; soft, mildly tender mostly to the right mid abdomen without rebound or guarding. Patient has no palpable masses, does have an elevated BMI, and I am not able to auscultate any bruits : Patient does have some scrotal edema which is baseline according to the relatives and actually has improved. There is no perineal induration, fluctuance, or tenderness. Patient has no impaction upon digital insertion. BACK: The back appears normal and is non-tender to palpation EXT: Normal ROM in all joints; non-tender to palpation; no cyanosis, no effusions, no edema SKIN: Normal color for age and race; warm; dry; good turgor; capillary refill < 2 seconds; no acute lesions noted NEURO: Moves all extremities equally; Motor and sensory function intact PSYCH: The patient's mood and manner are appropriate. Course - Re-evaluation Re-evalutation: 10/08/16 15:33 Given the above history and physical examination, I will obtain basic labs, provide fluids, nausea medications, and obtain a CT scan of the abdomen and pelvis. Patient has a extremely large BMI with a recent kidney failure, with active vomiting, leading me to believe that we do not need either p.o. or IV contrast at this time. 10/08/16 16:08 EKG shows a heart rate of 88, normal sinus rhythm, normal axis, no obvious ST elevation or depression. Minimally low voltage. 10/08/16 17:00 Labs as recorded. Hemoglobin and creatinine appear to be baseline. I have provided a 500 cc bolus of fluid. CT scan of the abdomen and pelvis show some free fluid and some ascites consistent with previous admission and discharge but no obvious acute infectious process. Liver panel and lipase as recorded. 10/08/16 18:15 Urine analysis catheterization as recorded. Urine culture has been sent. We will provide the patient a one-time dose of Rocephin, urine culture pending, and start the patient on a Bactrim antibiotic with follow-up with the primary doctor and urine culture result. - Laboratory Result Diagrams: 10/08/16 15:45 10/08/16 15:45 Laboratory results interpreted by me: 10/08/16 10/08/16 10/08/16 15:45 15:45 15:45 WBC 12.1 H RBC 3.14 L Hgb 8.5 L Hct 26.1 L MCH 26.9 L RDW 14.4 H Seg Neutrophils % 85.3 H Lymphocytes % 6.6 L Absolute Neutrophils 10.3 H Potassium 5.3 H BUN 86 H Creatinine 2.33 H Est GFR ( Amer) 34 L Est GFR (Non-Af Amer) 28 L Lactic Acid 0.6 L Calcium 8.3 L ALT 18 L Alkaline Phosphatase 137 H Total Protein 6.2 L Albumin 2.1 L Urine Protein Ur Leukocyte Esterase 10/08/16 17:20 WBC RBC Hgb Hct MCH RDW Seg Neutrophils % Lymphocytes % Absolute Neutrophils Potassium BUN Creatinine Est GFR ( Amer) Est GFR (Non-Af Amer) Lactic Acid Calcium ALT Alkaline Phosphatase Total Protein Albumin Urine Protein 100 H Ur Leukocyte Esterase SMALL H Discharge - Discharge Clinical Impression: Vomiting Qualifiers: Vomiting type: unspecified Vomiting Intractability: non-intractable Nausea presence: without nausea Qualified Code(s): R11.11 - Vomiting without nausea Urinary tract infection Qualifiers: Urinary tract infection type: site unspecified Hematuria presence: without hematuria Qualified Code(s): N39.0 - Urinary tract infection, site not specified Condition: Good Disposition: HOME, SELF-CARE Instructions: Urinary Tract Infection ([facility]) Additional Instructions: Return immediately with any pain, abdominal swelling, fever, repeat vomiting, or any other acute problems. Please make sure that you follow-up with the urine culture as we have discussed as well as the primary care physician for reassessment. Prescriptions: Levofloxacin 750 mg PO DAILY #5 tablet Ondansetron [Zofran Odt 4 mg Tablet] 1 tab PO Q6H #15 tab.rapdis
[2016-10-08 16:03] LABS: ABSOLUTE BASOPHILS # (AUTO) 0.1 10^3/uL (0.0-0.2); ABSOLUTE EOSINOPHILS # (AUTO) 0.2 10^3/uL (0.0-0.6); ABSOLUTE LYMPHOCYTES (AUTO) 0.8 10^3/uL (0.5-4.7); ABSOLUTE MONOCYTES (AUTO) 0.7 10^3/uL (0.1-1.4); ABSOLUTE NEUT (AUTO) 10.3 10^3/uL (1.7-8.2); BASOPHILS % (AUTO) 0.6 % (0-2); EOSINOPHILS % (AUTO) 1.5 % (0-6); HEMATOCRIT 26.1 % (37.9-51.0); HEMOGLOBIN 8.5 g/dL (13.5-17.0); HGB HCT DIFFERENCE -0.6; LYMPHOCYTES % (AUTO) 6.6 % (13-45); MEAN CORPUSCULAR HEMOGLOBIN 26.9 pg (27.0-33.4); MEAN CORPUSCULAR HGB CONC 32.4 g/dL (32.0-36.0); MEAN CORPUSCULAR VOLUME 83 fl (80-97); RED BLOOD COUNT 3.14 10^6/uL (4.35-5.55); RED CELL DISTRIBUTION WIDTH 14.4 % (11.5-14.0); SEGMENTED NEUTROPHILS % (AUTO) 85.3 % (42-78); WHITE BLOOD COUNT 12.1 10^3/uL (4.0-10.5)
[2016-10-08 16:20] LABS: ALANINE AMINOTRANSFERASE 18 U/L (21-72); ALBUMIN 2.1 g/dL (3.5-5.0); ALKALINE PHOSPHATASE 137 U/L (38-126); ANION GAP 8 (5-19); ASPARTATE AMINO TRANSFERASE 18 U/L (17-59); BILIRUBIN,DIRECT 0.4 mg/dL (0.0-0.4); BILIRUBIN,TOTAL 0.4 mg/dL (0.2-1.3); BLOOD UREA NITROGEN 86 mg/dL (7-20); CALCIUM 8.3 mg/dL (8.4-10.2); CARBON DIOXIDE 29 mmol/L (22-30); CHLORIDE 105 mmol/L (98-107); CREATININE RESULT 2.33 mg/dL (0.52-1.25); GLUCOSE 80 mg/dL (75-110); LIPASE 25.2 U/L (23-300); POTASSIUM 5.3 mmol/L (3.6-5.0); SODIUM 142.1 mmol/L (137-145); TOTAL PROTEIN 6.2 g/dL (6.3-8.2)
--- NOTE | 2016-10-08 16:21 | RADIOLOGY REPORT (SQ) ---
EXAM DESCRIPTION: CT ABD/PELVIS NO ORAL OR IV COMPLETED DATE/TIME: 10/08/2016 3:33 pm REASON FOR STUDY: 13, pain and vomiting, recent kidney failure, rece COMPARISON: 09/12/2016 TECHNIQUE: CT scan of the abdomen and pelvis performed without intravenous or oral contrast. Images reviewed with lung, soft tissue, and bone windows. Reconstructed coronal and sagittal MPR images revi ewed. All images stored on PACS. All CT scanners at this facility use dose modulation, iterative reconstruction, and/or weight based d osing when appropriate to reduce radiation dose to as low as reasonably achievable (ALARA). [facility]: Dose Right [facility]: CareDose [facility]: Dose Right [facility]: Teradose 4D [facility]: Synedgen RADIATION DOSE: 19.22mGy. LIMITATIONS: Severe artifact superiorly due to arm positioning. FINDINGS: LOWER CHEST: Small bilateral pleural effusions right greater than left. Mild increased de nsity is seen in the lungs adjacent to the effusions likely representing compressive atelectasis. No evidence of pneumonia or edema. NON-CONTRASTED LIVER, SPLEEN, ADRENALS: Evaluation limited by lack of IV contrast and artifact from a rm position. No identified significant masses. PANCREAS: No masses. No peripancreatic inflammatory changes. GALLBLADDER: No identified stones by CT criteria. No inflammatory changes to suggest cholecystitis. RIGHT KIDNEY AND URETER: No suspicious masses. Assessment limited by lack of IV contrast. No signif icant calcifications. No hydronephrosis or hydroureter. LEFT KIDNEY AND URETER: No suspicious masses. Assessment limited by lack of IV contrast. No signifi cant calcifications. No hydronephrosis or hydroureter. AORTA AND RETROPERITONEUM: No aneurysm. No retroperitoneal masses or adenopathy. BOWEL AND PERITONEAL CAVITY: Diverticulosis without evidence of diverticulitis or abscess. Minimal a scites. APPENDIX: The appendix itself appears normal. There is a small amount of fluid seen adjacent to the appendix felt to represent small amount of free fluid PELVIS, BLADDER, AND ABDOMINAL WALL:Diffuse soft tissue edema. No abnormal masses. No free fluid. Bl adder normal. BONES: No significant findings. OTHER: No other significant finding. IMPRESSION: 1. Small bilateral pleural effusions and diffuse soft tissue edema suggesting congestiv e failure. 2. Diverticulosis without evidence of diverticulitis or abscess. TECHNICAL DOCUMENTATION: JOB ID: [id number] Quality ID # [id number]: Final reports with documentation of one or more dose reduction techniques (e.g., Au tomated exposure control, adjustment of the mA and/or kV according to patient size, use of iterative reconstruction technique) 2010 [employer]- All Rights Reserved
[2016-10-08] MEDS ORDERED: ONDANSETRON HCL INJ/PF 4 MG/2 ML SDV ONE (16:33)
[2016-10-08] MEDS ORDERED: NORMAL SALINE 1000 ML 500 ML IV ONE (17:01)
--- NOTE | 2016-10-08 17:04 | EKG REPORT ---
SEVERITY:- OTHERWISE NORMAL ECG - SINUS RHYTHM LOW VOLTAGE IN FRONTAL LEADS : Confirmed by: Yelitza Tatum MD 08-Oct-2016 17:04:01
[2016-10-08 17:55] LABS: APPEARANCE,URINE CLEAR; BILIRUBIN,URINE NEGATIVE (NEGATIVE); GLUCOSE, URINE NEGATIVE (NEGATIVE); KETONES,URINE NEGATIVE (NEGATIVE); LEUKOCYTE ESTERASE,URINE SMALL (NEGATIVE); NITRITE,URINE NEGATIVE (NEGATIVE); PROTEIN,URINE 100 mg/dL (NEGATIVE); UROBILINOGEN,URINE NEGATIVE mg/dL (<2.0)
[2016-10-08] MEDS ORDERED: CEFTRIAXONE RTU 1 GM/D5W 50 ML IV ONE (18:17)
[2016-10-08] MEDS ORDERED: LEVOFLOXACIN 750 MG/D5W RTU 150 ML IV ONE (18:41)
[2016-10-08 23:33] VITALS: BP 129/71
== END 2016-10-08 23:34 | disposition home or self-care (01) ==
LOC: ER 14:54
DX: N39.0 Urinary tract infection, site not specified (principal); K59.00 Constipation, unspecified; R11.2 Nausea with vomiting, unspecified; R41.0 Disorientation, unspecified; R18.8 Other ascites; I10 Essential (primary) hypertension; E11.9 Type 2 diabetes mellitus without complications; Z87.19 Personal history of other diseases of the digestive system; Z86.14 Personal history of Methicillin resistant Staphylococcus aureus infection; Z98.890 Other specified postprocedural states; Z95.810 Presence of automatic (implantable) cardiac defibrillator
CPT/HCPCS: 93005; 99285; 96365; 36415; 87086; 82962; 83690; 85025; 80053; 81001; 84484; 83605; 74176; 93010; J2405; J7030; J1956; 96375

== ENCOUNTER → 2016-10-11 | Outpatient (CLI) | payer MEDICARE ==
[2016-10-11 14:52] LABS: ANION GAP 5 (5-19); BLOOD UREA NITROGEN 72 mg/dL (7-20); CARBON DIOXIDE 29 mmol/L (22-30); CHLORIDE 107 mmol/L (98-107); CREATININE RESULT 2.31 mg/dL (0.52-1.25); GLUCOSE 83 mg/dL (75-110); POTASSIUM 5.2 mmol/L (3.6-5.0); SODIUM 140.8 mmol/L (137-145)
== END ==
LOC: OD 13:47
PROVIDERS: ATTEND Internal Medicine Cardiovascular Disease
DX: R60.9 Edema, unspecified (principal)
CPT/HCPCS: 36415; 80048

== ENCOUNTER 2016-12-23 10:55 | Observation (INO) | payer MEDICARE ==
[2016-12-23] MEDS ORDERED: ASPIRIN 81 MG TABLET, CHEWABLE PO ONE (10:57)
[2016-12-23 11:18] LABS: ABSOLUTE BASOPHILS # (AUTO) 0.1 10^3/uL (0.0-0.2); ABSOLUTE EOSINOPHILS # (AUTO) 0.7 10^3/uL (0.0-0.6); ABSOLUTE MONOCYTES (AUTO) 0.5 10^3/uL (0.1-1.4); ABSOLUTE NEUT (AUTO) 3.9 10^3/uL (1.7-8.2); BASOPHILS % (AUTO) 1.3 % (0-2); EOSINOPHILS % (AUTO) 11.2 % (0-6); HEMATOCRIT 31.3 % (37.9-51.0); HEMOGLOBIN 10.5 g/dL (13.5-17.0); HGB HCT DIFFERENCE 0.2; LYMPHOCYTES % (AUTO) 16.5 % (13-45); MEAN CORPUSCULAR HEMOGLOBIN 28.6 pg (27.0-33.4); MEAN CORPUSCULAR HGB CONC 33.6 g/dL (32.0-36.0); MEAN CORPUSCULAR VOLUME 85 fl (80-97); MONOCYTES % (AUTO) 7.5 % (3-13); RED BLOOD COUNT 3.67 10^6/uL (4.35-5.55); RED CELL DISTRIBUTION WIDTH 16.2 % (11.5-14.0); SEGMENTED NEUTROPHILS % (AUTO) 63.5 % (42-78); WHITE BLOOD COUNT 6.1 10^3/uL (4.0-10.5)
[2016-12-23 11:31] LABS: ALANINE AMINOTRANSFERASE 16 U/L (21-72); ALKALINE PHOSPHATASE 102 U/L (38-126); ANION GAP 10 (5-19); ASPARTATE AMINO TRANSFERASE 13 U/L (17-59); BILIRUBIN,DIRECT 0.5 mg/dL (0.0-0.4); BILIRUBIN,TOTAL 0.5 mg/dL (0.2-1.3); BLOOD UREA NITROGEN 34 mg/dL (7-20); CARBON DIOXIDE 26 mmol/L (22-30); CHLORIDE 106 mmol/L (98-107); CREATINE KINASE 88 U/L (55-170); CREATININE RESULT 1.67 mg/dL (0.52-1.25); GLUCOSE 180 mg/dL (75-110); POTASSIUM 4.1 mmol/L (3.6-5.0); SODIUM 142.1 mmol/L (137-145); TOTAL PROTEIN 6.5 g/dL (6.3-8.2)
--- NOTE | 2016-12-23 11:31 | RADIOLOGY REPORT (SQ) ---
EXAM DESCRIPTION: CHEST SINGLE VIEW COMPLETED DATE/TIME: 12/23/2016 11:24 am REASON FOR STUDY: pain COMPARISON: 09/20/2016 EXAM PARAMETERS: NUMBER OF VIEWS: One view. TECHNIQUE: Single frontal radiographic view of the chest acquired. RADIATION DOSE: NA LIMITATIONS: None. FINDINGS: LUNGS AND PLEURA: No opacities, masses or pneumothorax. No pleural effusion. MEDIASTINUM AND HILAR STRUCTURES: No masses. Contour normal. HEART AND VASCULAR STRUCTURES: Heart normal in size. Normal vasculature. BONES: No acute findings. HARDWARE: None in the chest. OTHER: No other significant finding. IMPRESSION: NO ACUTE RADIOGRAPHIC FINDING IN THE CHEST. TECHNICAL DOCUMENTATION: JOB ID: [id number]
--- NOTE | 2016-12-23 11:32 | ER Document Report ---
ED General - General Chief Complaint: Chest Pain Stated Complaint: CHEST PRESSURE Time Seen by Provider: 12/23/16 11:07 Mode of Arrival: Medic Information source: Patient, Relative, Emergency Med Personnel Notes: 66-year-old male DNR history of cardiomyopathy with 65% ejection fraction who used to have a defibrillator which was removed due to septicemia with no previous coronary artery disease presents with complaints of chest pressure sensation that started last night has been consistent this morning. Patient notes it initially started after eating, this morning he was sweaty did not feel well and EMS was called. They gave him one nitroglycerin full dose aspirin and his chest pain completely resolved TRAVEL OUTSIDE OF THE [place] IN LAST 30 DAYS: No - HPI Onset: Yesterday Onset/Duration: Persistent Quality of pain: Pressure Severity: Mild Pain Level: 2 Associated symptoms: Chest pain, Sweating Exacerbated by: Denies Relieved by: Denies Similar symptoms previously: No Recently seen / treated by doctor: No - Related Data Allergies/Adverse Reactions: Penicillins Allergy (Intermediate, Verified 12/23/16 11:36) swelling Past Medical History - Social History Smoking Status: Never Smoker Cigarette use (# per day): No Chew tobacco use (# tins/day): No Smoking Education Provided: No Family History: Reviewed & Not Pertinent - Past Medical History Cardiac Medical History: Reports: Hx Congestive Heart Failure - Chronic systolic , Hx Hypercholesterolemia, Hx Hypertension Denies: Hx Coronary Artery Disease, Hx Heart Attack Pulmonary Medical History: Denies: Hx Asthma, Hx Bronchitis, Hx COPD, Hx Pneumonia, Hx Tuberculosis Neurological Medical History: Denies: Hx Cerebrovascular Accident, Hx Seizures Endocrine Medical History: Reports: Hx Diabetes Mellitus Type 2 Renal/ Medical History: Denies: Hx Peritoneal Dialysis GI Medical History: Reports: Hx Gastroesophageal Reflux Disease Musculoskeltal Medical History: Reports Hx Arthritis Psychiatric Medical History: Denies: Hx Depression Infectious Medical History: Reports: Hx MRSA Past Surgical History: Reports: Hx Internal Defibrillator. Denies: Hx Pacemaker - Immunizations Hx Diphtheria, Pertussis, Tetanus Vaccination: Yes Hx Pneumococcal Vaccination: 01/19/11 Review of Systems - Review of Systems Notes: REVIEW OF SYSTEMS: CONSTITUTIONAL : Admits to sweats EENT: Denies eye, ear, throat, or mouth pain or symptoms. Denies nasal or sinus congestion or discharge. Denies throat, tongue, or mouth swelling or difficulty swallowing. CARDIOVASCULAR: Admits to chest pain RESPIRATORY: Denies cough, cold, or chest congestion. Denies shortness of breath, difficulty breathing, or wheezing. GASTROINTESTINAL: Denies abdominal pain or distention. Denies nausea, vomiting , or diarrhea. Denies blood in vomitus, stools, or per rectum. Denies black, tarry stools. Denies constipation. GENITOURINARY: Denies difficulty urinating, painful urination, burning, frequency, blood in urine, or discharge. MUSCULOSKELETAL: Denies back or neck pain or stiffness. Denies joint pain or swelling. SKIN: Denies rash, lesions or sores. HEMATOLOGIC : Denies easy bruising or bleeding. LYMPHATIC: Denies swollen, enlarged glands. NEUROLOGICAL: Denies confusion or altered mental status. Denies passing out or loss of consciousness. Denies dizziness or lightheadedness. Denies headache. Denies weakness or paralysis or loss of use of either side. Denies problems with gait or speech. Denies sensory loss, numbness, or tingling. Denies seizures. PSYCHIATRIC: Denies anxiety or stress. Denies depression, suicidal ideation, or homicidal ideation. ALL OTHER SYSTEMS REVIEWED AND NEGATIVE. Dictation was performed using [employer] voice recognition software PHYSICAL EXAMINATION: GENERAL: Well-appearing, well-nourished and in no acute distress. HEAD: Atraumatic, normocephalic. EYES: Pupils equal round and reactive to light, extraocular movements intact, sclera anicteric, conjunctiva are normal. ENT: Nares patent, oropharynx clear without exudates. Moist mucous membranes. NECK: Normal range of motion, supple without lymphadenopathy LUNGS: Breath sounds clear to auscultation bilaterally and equal. No wheezes rales or rhonchi. HEART: Regular rate and rhythm without murmurs ABDOMEN: Soft, nontender, nondistended abdomen. No guarding, no rebound. No masses appreciated. Musculoskeletal: Normal range of motion, no pitting or edema. No cyanosis. NEUROLOGICAL: Cranial nerves grossly intact. Normal speech, normal gait. Normal sensory, motor exams PSYCH: Normal mood, normal affect. SKIN: Right devlin wound well covered Physical Exam - Vital signs Vitals: Temp Pulse Ox 98.7 F 98 12/23/16 11:15 12/23/16 11:15 Course - Re-evaluation Re-evalutation: 12/23/16 11:33 Cardiac workup pending patient otherwise stable I expect admission 12/23/16 11:58 lab work negative, pt otherwise well appearing 12/23/16 11:59 - Vital Signs Vital signs: Temp Pulse Resp BP Pulse Ox 98.7 F 98 12/23/16 11:15 12/23/16 11:15 - Laboratory Result Diagrams: 12/23/16 11:04 12/23/16 11:04 Laboratory results interpreted by me: 12/23/16 12/23/16 11:04 11:04 RBC 3.67 L Hgb 10.5 L Hct 31.3 L RDW 16.2 H Eosinophils % 11.2 H Absolute Eosinophils 0.7 H BUN 34 H Creatinine 1.67 H Est GFR ( Amer) 50 L Est GFR (Non-Af Amer) 42 L Glucose 180 H Direct Bilirubin 0.5 H AST 13 L ALT 16 L Albumin 3.0 L - Diagnostic Test Radiology reviewed: Image reviewed, Reports reviewed - EKG Interpretation by Me EKG shows normal: Sinus rhythm, Sandy, Intervals, QRS Complexes Discharge - Discharge Clinical Impression: Hyperglycemia HTN (hypertension) Qualifiers: Hypertension type: essential hypertension Qualified Code(s): I10 - Essential ( primary) hypertension Hyperlipidemia Qualifiers: Hyperlipidemia type: unspecified Qualified Code(s): E78.5 - Hyperlipidemia, unspecified Chest pain Qualifiers: Chest pain type: unspecified Qualified Code(s): R07.9 - Chest pain, unspecified Condition: Stable Disposition: ADMITTED OBSERVATION Admitting Provider: Hospitalist Unit Admitted: Telemetry
[2016-12-23 11:43] LABS: CREATINE KINASE MB 0.64 ng/mL (<4.55); TROPONIN I 0.014 ng/mL
[2016-12-23] MEDS ORDERED: ONDANSETRON HCL INJ/PF 4 MG/2 ML SDV IV PRN (12:08)
[2016-12-23] MEDS ORDERED: MAG HYDROX/AL HYDROX/SIMETH SUSP 30 ML UDCUP PO PRN (12:08)
[2016-12-23] MEDS ORDERED: MORPHINE SULFATE 10 MG/ML INJ IV PRN (12:08)
[2016-12-23] MEDS ORDERED: DIAZEPAM 5 MG TABLET PO PRN (12:08)
[2016-12-23] MEDS ORDERED: DEXTROSE 40% GEL 15 GM TUBE PO PRN ×2 (12:13)
[2016-12-23] MEDS ORDERED: INSULIN LISPRO 100 UNIT/ML 3 ML VIAL SUBCUT PRN (12:13)
[2016-12-23] MEDS ORDERED: GLUCAGON,HUMAN RECOMB 1 MG INJ IM PRN (12:13)
[2016-12-23] MEDS ORDERED: DEXTROSE 50%-WATER 25 GM/50 ML DISP.SYRIN IV PRN ×2 (12:13)
--- NOTE | 2016-12-23 12:55 | EKG REPORT ---
SEVERITY:- ABNORMAL ECG - SINUS RHYTHM ATRIAL PREMATURE COMPLEX LEFT VENTRICULAR HYPERTROPHY : Confirmed by: Yo Foss MD 23-Dec-2016 12:54:39
[2016-12-23] MEDS ORDERED: LANSOPRAZOLE 15 MG TAB.RAP.DR PO ONE (13:00)
[2016-12-23] MEDS ORDERED: NORMAL SALINE 1000 ML 1,000 ML IV PRN (13:45)
--- NOTE | 2016-12-23 13:49 | PDOC H&P ---
History of Present Illness Admission Date/PCP: 12/23/16 12:21 LEXUS GARCIA MD History of Present Illness: FLAG MORELIA THIBODEAUX is a 66 year old male with a past medical history of CVA, complicated admission for sepsis with rhabdomyolysis and acute renal failure, cardiomyopathy, hypertension, insulin-dependent diabetes mellitus who presented to the emergency department with chest pain beginning last evening. She reports that he began having chest pain when he was lying in bed after eating. He reports that it felt like an elephant leg pressing on his chest. It was worse with inspiration and improved with expiration. He denied any associated shortness of breath, diaphoresis, nausea, vomiting. Patient reports that he had a bowel movement yesterday but this did require the use of an enema before that. Patient has recently completed wound care for venous stasis ulcer. Outside echocardiogram done at [facility] reveals an EF of 65%. He is referred to the hospital service for evaluation of chest pain. Past Medical History Cardiac Medical History: Reports: Congestive Heart Failure - Chronic systolic, Hyperlipidema, Hypertension Denies: Coronary Artery Disease, Myocardial Infarction Pulmonary Medical History: Denies: Asthma, Bronchitis, Chronic Obstructive Pulmonary Disease (COPD), Pneumonia, Tuberculosis Neurological Medical History: Denies: Seizures Endocrine Medical History: Reports: Diabetes Mellitus Type 2 Renal/ Medical History: Reports: Chronic Kidney Disease GI Medical History: Reports: Gastroesophageal Reflux Disease Musculoskeltal Medical History: Reports: Arthritis Psychiatric Medical History: Reports: General Anxiety Disorder, Tobacco Dependency Denies: Depression Hematology: Denies: Anemia Infectious Medical History: Reports: Methicillin-Resistant Staph Aureus Past Surgical History Past Surgical History: Reports: Internal Defibrillator - With removal, Orthopedic Surgery Denies: Pacemaker Social History Smoking Status: Current Every Day Smoker Cigarettes Packs Per Day: 0.1 Frequency of Alcohol Use: None Hx Recreational Drug Use: No Drugs: None Hx Prescription Drug Abuse: No - Advance Directive Resuscitation Status: Do Not Resuscitate Surrogate healthcare decision maker:: Daughter, Virgen Holliday Family History Family History: CAD, DM, Malignancy Parental Family History Reviewed: Yes Children Family History Reviewed: Yes Sibling(s) Family History Reviewed.: Yes Medication/Allergy Allergies/Adverse Reactions: Penicillins Allergy (Intermediate, Verified 12/23/16 11:36) swelling Review of Systems Constitutional: ABSENT: chills, fever(s), headache(s), weakness, weight gain, weight loss Eyes: ABSENT: visual disturbances Ears: ABSENT: hearing changes Cardiovascular: PRESENT: as per HPI, chest pain. ABSENT: dyspnea on exertion, edema, orthropnea, palpitations Respiratory: ABSENT: cough, dyspnea, hemoptysis, sputum Gastrointestinal: PRESENT: constipation, nausea, vomiting. ABSENT: abdominal pain, diarrhea, hematemesis, hematochezia, melena Genitourinary: PRESENT: difficulty urinating. ABSENT: dysuria, hematuria Musculoskeletal: ABSENT: joint swelling Integumentary: ABSENT: rash, wounds Neurological: PRESENT: weakness - Generalized but improving. ABSENT: abnormal gait, abnormal speech, confusion, dizziness, focal weakness, syncope Psychiatric: PRESENT: anxiety. ABSENT: depression, homidical ideation, suicidal ideation Endocrine: ABSENT: cold intolerance, heat intolerance, polydipsia, polyuria Hematologic/Lymphatic: ABSENT: easy bleeding, easy bruising Physical Exam Vital Signs: Temp Pulse Resp BP Pulse Ox 98.7 F 98 12/23/16 11:15 12/23/16 11:15 General appearance: PRESENT: no acute distress, well-developed, well-nourished Head exam: PRESENT: atraumatic, normocephalic Eye exam: PRESENT: conjunctiva pink, EOMI, PERRLA. ABSENT: scleral icterus Ear exam: PRESENT: normal external ear exam Mouth exam: PRESENT: dry mucosa, tongue midline Neck exam: ABSENT: JVD, lymphadenopathy, thyromegaly, tracheal deviation Respiratory exam: PRESENT: clear to auscultation nathan, prolonged expiratory phas , symmetrical, unlabored. ABSENT: accessory muscle use, crackles, rales, rhonchi, tachypnea, wheezes Cardiovascular exam: PRESENT: RRR, +S1, +S2, systolic murmur. ABSENT: diastolic murmur, gallop, rubs Pulses: PRESENT: normal dorsalis pedis pul Vascular exam: PRESENT: normal capillary refill GI/Abdominal exam: PRESENT: distended, hypoactive bowel sounds, soft. ABSENT: firm, guarding, mass, Leach's sign, organolmegaly, rebound, rigid, tenderness Rectal exam: PRESENT: deferred Extremities exam: PRESENT: clubbing, full ROM. ABSENT: calf tenderness, pedal edema Neurological exam: PRESENT: alert, awake, oriented to person, oriented to place , oriented to time, oriented to situation, CN II-XII grossly intact. ABSENT: motor sensory deficit Psychiatric exam: PRESENT: appropriate affect, normal mood. ABSENT: homicidal ideation, suicidal ideation Skin exam: PRESENT: dry, intact, warm. ABSENT: cyanosis, rash Results Laboratory Results: 12/23/16 12/23/16 12/23/16 11:04 11:04 11:04 WBC 6.1 Hgb 10.5 L Hct 31.3 L Plt Count 286 Potassium 4.1 BUN 34 H Creatinine 1.67 H Glucose 180 H AST 13 L ALT 16 L Creatine Kinase 88 CK-MB (CK-2) 0.64 Troponin I 0.014 NT-Pro-B Natriuret Pep Total Protein 6.5 Albumin 3.0 L 12/23/16 11:04 WBC Hgb Hct Plt Count Potassium BUN Creatinine Glucose AST ALT Creatine Kinase CK-MB (CK-2) Troponin I NT-Pro-B Natriuret Pep 1160 H Total Protein Albumin Impressions: Chest X-Ray 12/23/16 10:57 IMPRESSION: NO ACUTE RADIOGRAPHIC FINDING IN THE CHEST. Assessment & Plan - Diagnosis (1) Chest pain Qualifiers: Chest pain type: chest pain on breathing Qualified Code(s): R07.1 - Chest pain on breathing; R07.81 - Pleurodynia Is this a current diagnosis for this admission?: Yes Plan: Patient is currently chest pain-free. He recently had his defibrillator removed. Place patient on observation. Monitor on telemetry. Give 1/[address] patient on metoprolol, Cozaar, aspirin, and Lipitor. Will obtain stress test prior to discharge. (2) HTN (hypertension) Qualifiers: Hypertension type: essential hypertension Qualified Code(s): I10 - Essential (primary) hypertension Is this a current diagnosis for this admission?: Yes Plan: Currently well controlled. (3) Diabetes Qualifiers: Diabetes mellitus type: type 2 Diabetes mellitus complication status: with kidney complications Diabetes mellitus complication detail: with chronic kidney disease Diabetes mellitus retirement insulin use: with retirement use Chronic kidney disease stage: stage 3 (moderate) Qualified Code(s): E11.22 - Type 2 diabetes mellitus with diabetic chronic kidney disease; N18.3 - Chronic kidney disease, stage 3 (moderate); Z79.4 - marine oil terminal superintendent (current) use of insulin Is this a current diagnosis for this admission?: Yes Plan: Patient with hx of poorly controlled IDDM now residing at a care center for rehab. Will continue home insulin and SSI 05/18/15 09:32 Hemoglobin A1c % 13.9 H Defer to his outpatient provider for ongoing evaluation and management On Carb controlled diet (4) GERD (gastroesophageal reflux disease) Qualifiers: Esophagitis presence: esophagitis presence not specified Qualified Code(s) : K21.9 - Gastro-esophageal reflux disease without esophagitis Is this a current diagnosis for this admission?: Yes Plan: Continue PPI (5) Osteomyelitis of toe of right foot Is this a current diagnosis for this admission?: Yes Plan: Recently stopped going to wound care center Will change dressing and consult Dr. moura (6) Peripheral neuropathy Qualifiers: Is this a current diagnosis for this admission?: Yes Plan: continue neurontin (7) Tobacco abuse Is this a current diagnosis for this admission?: Yes Plan: encourage cessation (8) Venous stasis ulcer of right lower extremity Is this a current diagnosis for this admission?: Yes (9) History of CVA with residual deficit Is this a current diagnosis for this admission?: Yes Plan: Studies done at [facility] reveal a prior posterior occipital infarct. Continue physical therapy. Patient will need to return to rehab. (10) Opiate dependence Qualifiers: Substance use status: uncomplicated Qualified Code(s): F11.20 - Opioid dependence, uncomplicated Is this a current diagnosis for this admission?: Yes Plan: Patient is currently on oxycodone as an outpatient. We will continue this. This does cause some difficulty with his bowels. (11) Urinary retention Is this a current diagnosis for this admission?: Yes Plan: Straight cath as needed and check UA - Time Time Spent: 50 to 70 Minutes Medications reviewed and adjusted accordingly: Yes Anticipated discharge: Acute Rehab
[2016-12-23] MEDS: NITROGLYCERIN 2% OINTMENT 1 GM PACKET TP SCH (17:46)
[2016-12-23] MEDS: DOCUSATE SODIUM 100 MG CAPSULE PO SCH (17:46)
[2016-12-23] MEDS ORDERED: LOSARTAN POTASSIUM 25 MG TABLET PO SCH (22:00)
[2016-12-23] MEDS ORDERED: SACUBITRIL/VALSARTAN 97 MG/103 MG TABLET PO SCH (22:00)
[2016-12-23] MEDS ORDERED: INSULIN GLARGINE,HUM.REC.ANLOG 1,000 UNIT/10 ML UNIT SUBCUT SCH (22:00)
[2016-12-23] MEDS ORDERED: METOPROLOL TARTRATE 25 MG TABLET PO SCH (22:00)
[2016-12-23] MEDS: CARVEDILOL 12.5 MG TABLET PO SCH (22:12)
[2016-12-24] MEDS: LOSARTAN POTASSIUM 25 MG TABLET PO SCH ×2 (00:44→11:52)
[2016-12-24] MEDS: NITROGLYCERIN 2% OINTMENT 1 GM PACKET TP SCH ×4 (00:44→17:51)
[2016-12-24 01:01] LABS: CREATINE KINASE MB 0.53 ng/mL (<4.55); TROPONIN I 0.012 ng/mL
[2016-12-24 05:59] LABS: CREATINE KINASE 89 U/L (55-170); Direct HDL 36 mg/dL (>40); TRIGLYCERIDES 40 mg/dL (<150)
[2016-12-24 06:09] LABS: DIRECT LDL 65 mg/dL (<100)
[2016-12-24] MEDS ORDERED: INSULIN DEGLUDEC 20 UNIT SQ SCH (10:00)
[2016-12-24] MEDS ORDERED: ASPIRIN 325 MG TABLET, ENT COATED PO SCH (10:00)
[2016-12-24] MEDS: SENNOSIDES/DOCUSATE 8.6-50 MG 1 EACH TABLET PO SCH ×2 (11:51→17:51)
[2016-12-24] MEDS: INSULIN LISPRO 100 UNIT/ML 3 ML VIAL SUBCUT SCH ×3 (11:51→17:51)
[2016-12-24] MEDS: CARVEDILOL 12.5 MG TABLET PO SCH ×2 (11:51→21:40)
[2016-12-24] MEDS: AMLODIPINE BESYLATE 5 MG TABLET PO SCH (11:51)
[2016-12-24] MEDS: FUROSEMIDE 40 MG TABLET PO SCH (11:52)
[2016-12-24] MEDS: CALCIUM CARBONATE 500 MG TAB.CHEW PO SCH ×3 (11:52→17:51)
[2016-12-24] MEDS: DOCUSATE SODIUM 100 MG CAPSULE PO SCH ×2 (11:52→17:51)
[2016-12-24] MEDS: POLYETHYLENE GLYCOL 3350 POWDER 17 GM/1 PACKET PO SCH (11:53)
[2016-12-24] MEDS ORDERED: DEXTROSE 40% GEL 15 GM TUBE PO PRN ×2 (11:59)
[2016-12-24] MEDS: CILOSTAZOL 100 MG TABLET PO SCH ×2 (11:59→17:51)
[2016-12-24] MEDS ORDERED: GLUCAGON,HUMAN RECOMB 1 MG INJ SUBCUT PRN (11:59)
[2016-12-24] MEDS ORDERED: DEXTROSE 50%-WATER 25 GM/50 ML DISP.SYRIN IV PRN ×2 (11:59)
--- NOTE | 2016-12-24 12:16 | PDOC PROGRESS REPORT ---
Subjective Progress Note for:: 12/24/16 Subjective:: Pt states that he is not having any chest pain. Nursing states that pt is doing well. Physical Exam Vital Signs: Temp Pulse Resp BP Pulse Ox 98.1 F 61 16 146/70 H 97 12/24/16 03:52 12/24/16 07:00 12/24/16 03:52 12/24/16 03:52 12/23/16 16:00 Intake & Output 12/23/16 12/24/16 12/25/16 06:59 06:59 06:59 Intake Total 443 Output Total 550 Balance -107 Weight 94.4 kg General appearance: PRESENT: no acute distress, well-developed, well-nourished Head exam: PRESENT: atraumatic, normocephalic Eye exam: PRESENT: conjunctiva pink, EOMI. ABSENT: scleral icterus Ear exam: PRESENT: normal external ear exam Mouth exam: PRESENT: moist, tongue midline Neck exam: ABSENT: carotid bruit, JVD, lymphadenopathy, thyromegaly Respiratory exam: PRESENT: clear to auscultation nathan. ABSENT: rales, rhonchi, wheezes Cardiovascular exam: PRESENT: RRR. ABSENT: diastolic murmur, rubs, systolic murmur GI/Abdominal exam: PRESENT: normal bowel sounds, soft. ABSENT: distended, guarding, mass, organolmegaly, rebound, tenderness Rectal exam: PRESENT: deferred Neurological exam: PRESENT: alert, awake, oriented to person, oriented to place , oriented to time, oriented to situation, CN II-XII grossly intact. ABSENT: motor sensory deficit Skin exam: PRESENT: intact, warm Results Laboratory Results: 12/24/16 05:33 Triglycerides 40 Cholesterol 114.40 LDL Cholesterol Direct 65 VLDL Cholesterol 8.0 L HDL Cholesterol 36 L 12/23/16 12/23/16 12/24/16 17:10 17:10 00:15 Creatine Kinase CK-MB (CK-2) 0.72 0.53 Troponin I < 0.012 Cancelled 0.012 12/24/16 05:33 Creatine Kinase 89 CK-MB (CK-2) Troponin I Impressions: Chest X-Ray 12/23/16 10:57 IMPRESSION: NO ACUTE RADIOGRAPHIC FINDING IN THE CHEST. Assessment & Plan - Diagnosis (1) Chest pain Qualifiers: Chest pain type: chest pain on breathing Qualified Code(s): R07.1 - Chest pain on breathing; R07.81 - Pleurodynia Is this a current diagnosis for this admission?: Yes Plan: Pt written for stress test for tomorrow. Pt states that he is not having any chest pain. (2) HTN (hypertension) Qualifiers: Hypertension type: essential hypertension Qualified Code(s): I10 - Essential (primary) hypertension Is this a current diagnosis for this admission?: Yes Plan: Will continue current treatment plan. (3) Hyperglycemia Is this a current diagnosis for this admission?: Yes Plan: SSI (4) Opiate dependence Qualifiers: Substance use status: uncomplicated Qualified Code(s): F11.20 - Opioid dependence, uncomplicated Is this a current diagnosis for this admission?: Yes Plan: Pt is currently on oxycodone as outpatient. (5) Tobacco abuse Is this a current diagnosis for this admission?: Yes Plan: Encourage stop smoking. (6) Urinary retention Is this a current diagnosis for this admission?: Yes Plan: Straight cath as needed. (7) Osteomyelitis of toe of right foot Is this a current diagnosis for this admission?: Yes Plan: Continue dressing changes. (8) Peripheral neuropathy Qualifiers: Is this a current diagnosis for this admission?: Yes Plan: Continue Neurontin. - Time Time Spent with patient: 15-24 minutes
[2016-12-24] MEDS: SACUBITRIL/VALSARTAN 97 MG/103 MG TABLET PO SCH ×2 (12:39→21:41)
[2016-12-24] MEDS ORDERED: ONDANSETRON HCL INJ/PF 4 MG/2 ML SDV IV PRN (13:30)
[2016-12-24] MEDS ORDERED: MAG HYDROX/AL HYDROX/SIMETH SUSP 30 ML UDCUP PO PRN (13:30)
[2016-12-24] MEDS: FUROSEMIDE 20 MG TABLET PO SCH (14:40)
[2016-12-24] MEDS ORDERED: MORPHINE SULFATE 10 MG/ML INJ IV PRN (15:00)
[2016-12-24 17:09] LABS: APPEARANCE,URINE CLOUDY; BILIRUBIN,URINE NEGATIVE (NEGATIVE); GLUCOSE, URINE NEGATIVE (NEGATIVE); KETONES,URINE NEGATIVE (NEGATIVE); LEUKOCYTE ESTERASE,URINE LARGE (NEGATIVE); NITRITE,URINE NEGATIVE (NEGATIVE); PROTEIN,URINE 100 mg/dL (NEGATIVE); URINE SPECIFIC GRAVITY 1.008; UROBILINOGEN,URINE NEGATIVE mg/dL (<2.0)
[2016-12-24] MEDS: TAMSULOSIN HCL 0.4 MG CAP.SR.24H PO SCH (17:51)
--- NOTE | 2016-12-24 19:15 | EKG REPORT ---
SEVERITY:- ABNORMAL ECG - SINUS RHYTHM NONSPECIFIC INTRAVENTRICULAR CONDUCTION DELAY PROBABLE LEFT VENTRICULAR HYPERTROPHY : Confirmed by: Yo Foss MD 24-Dec-2016 19:14:58
[2016-12-24] MEDS: INSULIN GLARGINE,HUM.REC.ANLOG 300 UNIT/3 ML INSULN.PEN SUBCUT SCH (21:41)
[2016-12-25] MEDS: NITROGLYCERIN 2% OINTMENT 1 GM PACKET TP SCH ×4 (00:57→17:16)
--- NOTE | 2016-12-25 08:00 | EKG REPORT ---
SEVERITY:- ABNORMAL ECG - SINUS RHYTHM FIRST DEGREE AV BLOCK BORDERLINE T WAVE ABNORMALITIES : Confirmed by: Yo Foss MD 25-Dec-2016 07:58:58
[2016-12-25] MEDS ORDERED: AMINOPHYLLINE INJ/PF 250 MG/10 ML SDV IV ONE (11:22)
[2016-12-25] MEDS ORDERED: REGADENOSON INJ 0.4 MG/5 ML DISP.SYRIN IV ONE (11:22)
[2016-12-25] MEDS: FUROSEMIDE 20 MG TABLET PO SCH (12:44)
[2016-12-25] MEDS: SENNOSIDES/DOCUSATE 8.6-50 MG 1 EACH TABLET PO SCH ×2 (12:44→17:17)
[2016-12-25] MEDS: DOCUSATE SODIUM 100 MG CAPSULE PO SCH ×2 (12:45→17:17)
[2016-12-25] MEDS: CARVEDILOL 12.5 MG TABLET PO SCH ×2 (12:45→22:20)
[2016-12-25] MEDS: AMLODIPINE BESYLATE 5 MG TABLET PO SCH (12:46)
[2016-12-25] MEDS: ASPIRIN 325 MG TABLET, ENT COATED PO SCH (12:47)
[2016-12-25] MEDS: INSULIN LISPRO 100 UNIT/ML 3 ML VIAL SUBCUT SCH ×2 (12:49→17:16)
[2016-12-25] MEDS: CALCIUM CARBONATE 500 MG TAB.CHEW PO SCH ×3 (12:54→17:17)
[2016-12-25] MEDS: POLYETHYLENE GLYCOL 3350 POWDER 17 GM/1 PACKET PO SCH (12:54)
[2016-12-25] MEDS: FUROSEMIDE 40 MG TABLET PO SCH (12:54)
[2016-12-25] MEDS: SACUBITRIL/VALSARTAN 97 MG/103 MG TABLET PO SCH ×2 (12:56→22:26)
--- NOTE | 2016-12-25 12:57 | DRAGON STRESS TEST REPORT ---
INTRAVENOUS LEXISCAN CARDIOLITE STRESS TEST USING SINGLE PHOTON EMMISION COMPUTERIZED TOMOGRAPHIC. DATE OF PROCEDURE: December 25, 2016 INDICATION : Chest pain CARDIAC RISK FACTORS: History of cardiomyopathy RESTING EKG: Sinus rhythm with minor nonspecific ST-T wave changes STRESS EKG: No significant changes noted with LexiScan bolus REASON FOR TERMINATION: Protocol. PROCEDURE REPORT: Baseline heart rate 69 beats per minute with blood pressure of 147/77. Patient had no significant complaints. Heart rate at 2 minutes post bolus 85 with a blood pressure of 121/71. 3 minutes post bolus heart rate 81 with blood pressure of 129/76. No significant EKG changes were noted. Patient had no significant complaints during the procedure or postprocedure. Patient injected with Aminophyllin 75 mg at 3 minutes or later after Lexiscan bolus. CONCLUSIONS: Normal EKG and hemodynamic response to IV LexiScan. NUCLEAR DATA: At rest the patient was given 14.69 millicuries of technetium 99 sestamibi injected intravenously. As per protocol rest gated SPECT images were obtained. Subsequently the patient was given intravenous LexiScan at a dose of 0.4 mg in 5 mL intravenously, followed by flush with normal saline. Subsequently the stress dose of 41.6 millicuries of technetium 99 sestamibi was injected intravenously. As per protocol stress gated images were obtained. NUCLEAR INTERPRETATION: Both raw and processed data were used for interpretation. Visual, qualitative, computer-generated quantitative data was used. There was good myocardial uptake of technetium compound. Motion artifact and soft tissue attenuations were noted. Increased visceral uptake was noted. This caused difficulty with interpretation of the inferior wall perfusion. Decreased uptake noted in the inferior wall, this is predominantly fixed with mild transient perfusion defect noted at the distal inferior wall. EKG gated imaging showed LV EF at 33 %, rest and stress gated EF similar visually. T. I D. ratio was 1.03. Lung heart ratio noted to be within normal limits 0.37. No significant extracardiac and abnormal radiotracer activities were noted. RV free wall uptake was noted to be borderline increased. IMPRESSION: Also refer to comments under nuclear interpretation. Also test results needs to be interpreted in the context of pretest probability. 1. Interpretation technically difficult. Probable mild ischemia distal inferior wall. 2. Probable fixed perfusion defect indicative of of myocardial infarction/scar involving the mid and basal inferior wall. 3. EKG gated imaging shows left ventricular ejection fraction of approximately 33 % with diffuse hypokinesia. 4. Clinical correlation requested as occasionally worse disease or balanced ischemia could be missed. In approximately 10% of the cases Lexiscan may not cause adequate vasodilatory stress. RECOMMENDATIONS: Aggressive risk factor modification, medical therapy. May consider heart catheterization if significant symptoms or other high risk features. Clinical correlation with echocardiogram derived ejection fraction. Inability to exercise by itself can lead to increased cardiovascular event risks. Consider cardiology consultation and or follow-up if clinically indicated. I AM AVAILABLE FOR CARDIOLOGY CONSULTATION AND FOLLOWUP IF REQUESTED BY PMKyler Baker M.D., [employer] Technician supervisor plastic sheets, Board certified in cardiovascular diseases, Nuclear cardiology, Echocardiography Cardiac CT and cardiac MRI Ph. [phone] [place]
[2016-12-25] MEDS: CILOSTAZOL 100 MG TABLET PO SCH ×2 (13:07→17:25)
--- NOTE | 2016-12-25 16:06 | PDOC PROGRESS REPORT ---
Subjective Progress Note for:: 12/25/16 Subjective:: Pt states that he is feeling better today. Pt states that he has been working with physical therapy. Physical Exam Vital Signs: Temp Pulse Resp BP Pulse Ox 97.9 F 79 22 H 171/79 H 97 12/25/16 11:55 12/25/16 14:00 12/25/16 11:55 12/25/16 11:55 12/25/16 11:55 Intake & Output 12/24/16 12/25/16 12/26/16 06:59 06:59 06:59 Intake Total 443 Output Total 550 850 Balance -107 -850 Weight 94.4 kg 94.4 kg General appearance: PRESENT: no acute distress, well-developed, well-nourished Head exam: PRESENT: atraumatic, normocephalic Eye exam: PRESENT: conjunctiva pink, EOMI. ABSENT: scleral icterus Ear exam: PRESENT: normal external ear exam Mouth exam: PRESENT: moist, tongue midline Neck exam: ABSENT: carotid bruit, JVD, lymphadenopathy, thyromegaly Respiratory exam: PRESENT: clear to auscultation nathan. ABSENT: rales, rhonchi, wheezes Cardiovascular exam: PRESENT: RRR. ABSENT: diastolic murmur, rubs, systolic murmur Pulses: PRESENT: normal dorsalis pedis pul Vascular exam: PRESENT: normal capillary refill GI/Abdominal exam: PRESENT: normal bowel sounds, soft. ABSENT: distended, guarding, mass, organolmegaly, rebound, tenderness Rectal exam: PRESENT: deferred Extremities exam: PRESENT: full ROM. ABSENT: calf tenderness, clubbing, pedal edema Neurological exam: PRESENT: alert, awake, oriented to person, oriented to place , oriented to time, oriented to situation, CN II-XII grossly intact. ABSENT: motor sensory deficit Psychiatric exam: PRESENT: appropriate affect, normal mood. ABSENT: homicidal ideation, suicidal ideation Skin exam: PRESENT: dry, intact, warm. ABSENT: cyanosis, rash Results Laboratory Results: 12/24/16 16:50 Urine Color YELLOW Urine Appearance CLOUDY Urine pH 5.0 Ur Specific [place] 1.008 Urine Protein 100 H Urine Glucose (UA) NEGATIVE Urine Ketones NEGATIVE Urine Blood SMALL H Urine Nitrite NEGATIVE Ur Leukocyte Esterase LARGE H Urine WBC (Auto) >182 Urine RBC (Auto) 21 0912/23/16 12/24/16 17:10 17:10 00:15 Creatine Kinase CK-MB (CK-2) 0.72 0.53 Troponin I < 0.012 Cancelled 0.012 12/24/16 05:33 Creatine Kinase 89 CK-MB (CK-2) Troponin I Impressions: Chest X-Ray 12/23/16 10:57 IMPRESSION: NO ACUTE RADIOGRAPHIC FINDING IN THE CHEST. Assessment & Plan - Diagnosis (1) Chest pain Qualifiers: Chest pain type: chest pain on breathing Qualified Code(s): R07.1 - Chest pain on breathing; R07.81 - Pleurodynia Is this a current diagnosis for this admission?: Yes Plan: Pt had nuclear stress test that demonstrated EF for 33%. Will consult Cardiology to evaluate pt. Pt states that he is feeling better. (2) HTN (hypertension) Qualifiers: Hypertension type: essential hypertension Qualified Code(s): I10 - Essential (primary) hypertension Is this a current diagnosis for this admission?: Yes Plan: Will continue current treatment plan. (3) Acute cystitis Is this a current diagnosis for this admission?: Yes Plan: Gram Neg Rods: Will place on Rocephin. (4) Hyperglycemia Is this a current diagnosis for this admission?: Yes Plan: SSI (5) Opiate dependence Qualifiers: Substance use status: uncomplicated Qualified Code(s): F11.20 - Opioid dependence, uncomplicated Is this a current diagnosis for this admission?: Yes Plan: Pt is currently on oxycodone as outpatient. (6) Tobacco abuse Is this a current diagnosis for this admission?: Yes Plan: Encourage stop smoking. (7) Urinary retention Is this a current diagnosis for this admission?: Yes Plan: Straight cath as needed. (8) Osteomyelitis of toe of right foot Is this a current diagnosis for this admission?: Yes Plan: Continue dressing changes. (9) Peripheral neuropathy Qualifiers: Is this a current diagnosis for this admission?: Yes Plan: Continue Neurontin. (10) Systolic CHF Qualifiers: Congestive heart failure chronicity: unspecified congestive heart failure chronicity Qualified Code(s): I50.20 - Unspecified systolic (congestive) heart failure Is this a current diagnosis for this admission?: Yes Plan: EF on nuclear 33%. Pt's EF in 09/04 was 65%. Will have Cardiology evaluate pt. - Time Time Spent with patient: 15-24 minutes
[2016-12-25] MEDS: TAMSULOSIN HCL 0.4 MG CAP.SR.24H PO SCH (17:17)
--- NOTE | 2016-12-25 20:39 | PDOC CONSULTATION ---
Consultation Consult Date: 12/25/16 Attending physician:: ED MURILLO Consult reason:: Chest pain History of Present Illness Admission Date/PCP: 12/23/16 12:08 LEXUS GARCIA MD Patient complains of: Chest pain History of Present Illness: FLAG MORELIA THIBODEAUX is a 66 year old male with a past medical history of CVA, complicated admission for sepsis with rhabdomyolysis and acute renal failure, cardiomyopathy, hypertension, insulin-dependent diabetes mellitus who presented to the emergency department with chest pain beginning last evening. She reports that he began having chest pain when he was lying in bed after eating. He reports that it felt like an elephant leg pressing on his chest. It was worse with inspiration and improved with expiration. He denied any associated shortness of breath, diaphoresis, nausea, vomiting. Patient reports that he had a bowel movement yesterday but this did require the use of an enema before that. Patient has recently completed wound care for venous stasis ulcer. Outside echocardiogram done at [facility] reveals an EF of 65%. He is referred to the hospital service for evaluation of chest pain. This history was reviewed. Today patient interviewed again. Patient claims that his chest discomfort started soon after he was eating. He was not able to sit up that he normally does. Therefore he was transferred to the hospital for admission. He has not had any recurrence of chest pain. Patient denied any prior history of myocardial infarction or angina. He claims that he had a defibrillator placed in the past for cardiomyopathy but this was removed because of an infection. Past Medical History Cardiac Medical History: Reports: Congestive Heart Failure - Chronic systolic, Hyperlipidema, Hypertension Denies: Coronary Artery Disease, Myocardial Infarction Pulmonary Medical History: Denies: Asthma, Bronchitis, Chronic Obstructive Pulmonary Disease (COPD), Pneumonia, Tuberculosis Neurological Medical History: Denies: Seizures Endocrine Medical History: Reports: Diabetes Mellitus Type 2 Renal/ Medical History: Reports: Chronic Kidney Disease GI Medical History: Reports: Gastroesophageal Reflux Disease Musculoskeltal Medical History: Reports: Arthritis Psychiatric Medical History: Reports: General Anxiety Disorder, Tobacco Dependency Denies: Depression Hematology: Denies: Anemia Infectious Medical History: Reports: Methicillin-Resistant Staph Aureus Past Surgical History Past Surgical History: Reports: Internal Defibrillator - With removal, Orthopedic Surgery Denies: Pacemaker Social History Information Source: Patient Smoking Status: Current Every Day Smoker Cigarettes Packs Per Day: 0.1 Last Time Smoked: 12/22/2016 Frequency of Alcohol Use: None Hx Recreational Drug Use: No Drugs: None Hx Prescription Drug Abuse: No - Advance Directive Resuscitation Status: Do Not Resuscitate Family History Family History: CAD, DM, Malignancy Parental Family History Reviewed: Yes Children Family History Reviewed: Yes Sibling(s) Family History Reviewed.: Yes Medication/Allergy Home Medications: Acetaminophen [Tylenol 325 mg Tablet] 650 mg PO Q8HP PRN 12/23/16 Amlodipine Besylate [Norvasc 5 mg Tablet] 5 mg PO DAILY 12/23/16 Aspirin [Aspirin 81 mg Chewable Tablet] 81 mg PO DAILY 12/23/16 Calcium Carbonate [Tums Chewable 500 mg Tab.chew] 1,000 mg PO MEALS 12/23/16 Carvedilol [Coreg 25 mg Tablet] 1 tab PO Q12 12/23/16 Cilostazol [Pletal 100 Mg Tablet] 50 mg PO BID 12/23/16 Epoetin Agustin [Procrit] 20,000 unit SUBCUT WE@1000 12/23/16 Furosemide [Lasix 20 mg Tablet] 20 mg PO DAILY@1300 12/23/16 Furosemide [Lasix 40 mg Tablet] 40 mg PO QAM 12/23/16 Insulin Degludec [Tresiba Flextouch U-100] 20 unit SQ DAILY 12/23/16 Insulin Lispro [Humalog Insulin 100 Unit/1 ml 3 ml Vial] 4 unit SUBCUT AC Lactobacillus Acidophilus [Florajen] 920 mg PO DAILY 12/23/16 Ondansetron [Zofran Odt 4 mg Tablet] 4 mg PO Q6HP PRN 12/23/16 Oxycodone HCl [Oxycodone HCl 10 MG Tablet] 10 mg PO DAILY 12/23/16 Polyethylene Glycol 3350 [Miralax Powder 17 gm/Packet] 1 packet PO DAILY Promethazine HCl [Phenergan Inj 25 mg/1 ml Vial] 25 mg IM Q6HP PRN 12/23/16 Sacubitril/Valsartan [Entresto 97 mg-103 mg Tablet] 2 each PO Q12 12/23/16 Sennosides/Docusate 8.6-50 mg [Senna Plus Tablet] 1 tab PO BID 12/23/16 Tamsulosin HCl [Flomax 0.4 mg Cap.sr] 0.4 mg PO QPM 12/23/16 Allergies/Adverse Reactions: Penicillins Allergy (Intermediate, Verified 12/23/16 11:36) swelling Review of Systems Review of Systems: Please see history of present illness and past medical history as wall. Constitutional: No fever or chills reported. Head : No recent chronic headaches, recent head injury. Eyes: No recent eye pain, diplopia, redness, discharge, acute visual changes. Ears: No recent chronic ear pain, acute hearing loss, ear discharge. Oral cavity: No recent ulcerations, bleeding, oral cavity discomfort. Neck: No recent acute neck pain reported. Hematologic: No recent easy bruising or bleeding or hematologic malignancy reported. Lymphatic: No recent lymphatic malignancy, chronic lymphadenopathy reported yet Cardiovascular system review: See history of present illness. Respiratory system review: No recent chronic cough, hemoptysis, blood clots in the lungs reported. Shortness of breath on exertion Gastrointestinal system review: Negative for any recent acute or chronic abdominal pain, hematemesis, melena, recent change in bowel habits. Genitourinary system review: No recent acute or chronic hematuria, flank pain, UTI etc. reported. Skin system review: Negative for any recent abnormal bruising, no rash, no pruritus reported. Neurologic: No prior history of strokes, mini strokes, seizure disorder. Patient denied any history of stroke but claims bilateral lower extremity weakness because of sepsis. Psychologic: No history of major psychosis or major depression reported. Musculoskeletal: Minor aches and pains reported. No acute joint swelling reported. Patient describes arthritic problems in both lower extremity. Patient also has left shoulder discomfort from some rotator cuff problem. Endocrine: No recent polyuria, polydipsia, recent heat or cold intolerance. Physical Exam Vital Signs: Temp Pulse Resp BP Pulse Ox 97.6 F 71 22 H 150/81 H 100 12/25/16 16:13 12/25/16 16:13 12/25/16 16:13 12/25/16 16:13 12/25/16 16:13 Intake & Output 12/24/16 12/25/16 12/26/16 06:59 06:59 06:59 Intake Total 443 563 Output Total 550 850 390 Balance -107 -850 173 Weight 94.4 kg 94.4 kg Exam: GENERAL: well-nourished and in no acute distress. Alert and oriented x3 HEAD: Atraumatic, normocephalic. EYES: Pupils equal round and reactive to light, extraocular movements intact, sclera anicteric, conjunctiva are normal. ENT: TMs normal, nares patent, oropharynx clear without exudates. Moist mucous membranes. No oral ulcerations or bleeding gums noted NECK: supple without lymphadenopathy. Trachea is central. No cervical or axillary lymphadenopathy noted. Carotids are 2+, JVD WNL LUNGS: Respiration seems nonlabored, no significant accessory muscle action noted. Breath sounds clear to auscultation bilaterally and equal noted. No wheezes rales or rhonchi noted. No significant dullness noted on percussion. CHEST: Palpation of the chest wall shows no significant chest wall tenderness. No other significant abnormalities noted. Scar of left-sided defibrillator removal noted. HEART: [place] [employer], No PSH, 1/6 WM aortic area, 1/6 [place] systolic murmur mitral area, no rubs, no gallops. ABDOMEN: Soft, no significant tenderness appreciated, normoactive bowel sounds. No guarding, no rebound. No rigidity noted . No masses appreciated. EXTREMITIES: Pedal pulses are 1-2+, no calf tenderness noted. No clubbing or cyanosis.trace to 1+ pedal edema noted NEUROLOGICAL: Focused neurological exam showed bilateral lower extremity weakness. Normal speech, left upper extremity weakness appreciated but patient claims it is due to chronic shoulder problem. PSYCH: Normal mood, normal affect. Judgment and insight within normal limits. SKIN: No significant ecchymosis, rash, ulcerations or signs of pruritus noted. MUSCULOSKELETAL EXAM: No significant joint swelling noted. Dystrophic changes noted in both lower legs. Results Laboratory Results: 12/24/16 16:50 Urine Color YELLOW Urine Appearance CLOUDY Urine pH 5.0 Ur Specific [place] 1.008 Urine Protein 100 H Urine Glucose (UA) NEGATIVE Urine Ketones NEGATIVE Urine Blood SMALL H Urine Nitrite NEGATIVE Ur Leukocyte Esterase LARGE H Urine WBC (Auto) >182 Urine RBC (Auto) 21 12/23/16 12/23/16 12/24/16 17:10 17:10 00:15 Creatine Kinase CK-MB (CK-2) 0.72 0.53 Troponin I < 0.012 Cancelled 0.012 12/24/16 05:33 Creatine Kinase 89 CK-MB (CK-2) Troponin I Impressions: Chest X-Ray 12/23/16 10:57 IMPRESSION: NO ACUTE RADIOGRAPHIC FINDING IN THE CHEST. Assessment & Plan - Diagnosis (1) Chest pain Qualifiers: Chest pain type: unspecified Qualified Code(s): R07.9 - Chest pain, unspecified Is this a current diagnosis for this admission?: Yes (2) Cardiomyopathy Qualifiers: Cardiomyopathy type: unspecified Qualified Code(s): I42.9 - Cardiomyopathy , unspecified Is this a current diagnosis for this admission?: Yes (3) HTN (hypertension) Qualifiers: Hypertension type: essential hypertension Qualified Code(s): I10 - Essential (primary) hypertension Is this a current diagnosis for this admission?: Yes (4) Hyperlipidemia Qualifiers: Hyperlipidemia type: unspecified Qualified Code(s): E78.5 - Hyperlipidemia , unspecified - Notes Notes: Nuclear stress test results were reviewed with the patient. Chest pain: Sounds atypical and mostly GI related. Currently chest pain-free. Nuclear stress images were difficult to interpret because of increased visceral uptake. Feel that patient is clinically stable without any recurrent chest pain and negative enzymes and is without any significant EKG changes. Since EKG gated imaging showed depressed LVEF will order a 2D echo for the morning. Would recommend statins, beta-milton, PATRICK inhibitor/ARB therapy as well as antiplatelet therapy. Cardiomyopathy: We will repeat a twelve-lead 2D echocardiogram. Hypertension: Reasonably well controlled. Blood pressure goal in this patient is 135/85 or less. This was discussed with the patient. Currently blood pressure under reasonable control. Better medication for this patient are PATRICK inhibitor/ARB/beta [place] etc. discussed side effects of uncontrolled hypertension and also severe hypotension. Hyperlipidemia: LDL goal is less than 70. Recommend statin therapy at least intermediate or high dose, of high potency status. Periodic lipid panel and liver panel is indicated. Patient to report any significant muscle discomfort or other side effects. - Time Time Spent: 30 to 50 Minutes Medications reviewed and adjusted accordingly: Yes
[2016-12-25] MEDS: INSULIN GLARGINE,HUM.REC.ANLOG 300 UNIT/3 ML INSULN.PEN SUBCUT SCH (22:20)
[2016-12-26] MEDS: NITROGLYCERIN 2% OINTMENT 1 GM PACKET TP SCH ×5 (01:00→23:28)
[2016-12-26 05:06] LABS: ANION GAP 11 (5-19); BLOOD UREA NITROGEN 46 mg/dL (7-20); CARBON DIOXIDE 26 mmol/L (22-30); CHLORIDE 106 mmol/L (98-107); CREATININE RESULT 1.62 mg/dL (0.52-1.25); GLUCOSE 139 mg/dL (75-110); POTASSIUM 3.8 mmol/L (3.6-5.0); SODIUM 142.9 mmol/L (137-145)
[2016-12-26] MEDS: SACUBITRIL/VALSARTAN 97 MG/103 MG TABLET PO SCH ×2 (09:11→22:32)
[2016-12-26] MEDS: POLYETHYLENE GLYCOL 3350 POWDER 17 GM/1 PACKET PO SCH (09:23)
[2016-12-26] MEDS: CALCIUM CARBONATE 500 MG TAB.CHEW PO SCH ×3 (09:23→18:28)
[2016-12-26] MEDS: FUROSEMIDE 40 MG TABLET PO SCH (09:23)
[2016-12-26] MEDS: AMLODIPINE BESYLATE 5 MG TABLET PO SCH (09:23)
[2016-12-26] MEDS: DOCUSATE SODIUM 100 MG CAPSULE PO SCH ×2 (09:29→18:27)
[2016-12-26] MEDS: SENNOSIDES/DOCUSATE 8.6-50 MG 1 EACH TABLET PO SCH ×2 (09:29→18:27)
[2016-12-26] MEDS: ASPIRIN 325 MG TABLET, ENT COATED PO SCH (09:29)
[2016-12-26] MEDS: INSULIN LISPRO 100 UNIT/ML 3 ML VIAL SUBCUT SCH ×3 (09:30→18:28)
[2016-12-26] MEDS: CARVEDILOL 12.5 MG TABLET PO SCH ×2 (09:30→22:31)
[2016-12-26] MEDS: CEFTRIAXONE 1 GM/D5W RTU 1 GM/50 ML RTUPB IV SCH (09:30)
[2016-12-26] MEDS: CILOSTAZOL 100 MG TABLET PO SCH ×2 (09:31→18:28)
[2016-12-26] MEDS: FUROSEMIDE 20 MG TABLET PO SCH (13:50)
--- NOTE | 2016-12-26 14:01 | PDOC PROGRESS REPORT ---
Subjective Progress Note for:: 12/26/16 Subjective:: Pt states that he is doing well. Microbiology was contacted about urine culture results and they state that it will be ready tomorrow morning. Physical Exam Vital Signs: Temp Pulse Resp BP Pulse Ox 98.0 F 63 16 142/61 H 97 12/26/16 07:58 12/26/16 07:58 12/26/16 07:58 12/26/16 07:58 12/26/16 07:58 Intake & Output 12/25/16 12/26/16 12/27/16 06:59 06:59 06:59 Intake Total 748 Output Total 850 890 Balance -850 -142 Weight 94.4 kg 97.5 kg General appearance: PRESENT: no acute distress, well-developed, well-nourished Head exam: PRESENT: atraumatic, normocephalic Eye exam: PRESENT: conjunctiva pink, EOMI, PERRLA. ABSENT: scleral icterus Ear exam: PRESENT: normal external ear exam Mouth exam: PRESENT: moist, tongue midline Neck exam: ABSENT: carotid bruit, JVD, lymphadenopathy, thyromegaly Respiratory exam: PRESENT: clear to auscultation nathan. ABSENT: rales, rhonchi, wheezes Cardiovascular exam: PRESENT: RRR, systolic murmur. ABSENT: diastolic murmur, rubs Pulses: PRESENT: normal dorsalis pedis pul Vascular exam: PRESENT: normal capillary refill GI/Abdominal exam: PRESENT: normal bowel sounds, soft. ABSENT: distended, guarding, mass, organolmegaly, rebound, tenderness Rectal exam: PRESENT: deferred Extremities exam: PRESENT: full ROM. ABSENT: calf tenderness, clubbing, pedal edema Neurological exam: PRESENT: alert, awake, oriented to person, oriented to place , oriented to time, oriented to situation, CN II-XII grossly intact. ABSENT: motor sensory deficit Psychiatric exam: PRESENT: appropriate affect, normal mood. ABSENT: homicidal ideation, suicidal ideation Skin exam: PRESENT: dry, intact, warm. ABSENT: cyanosis, rash Results Laboratory Results: 12/26/16 04:22 12/26/16 04:22 Sodium 142.9 Potassium 3.8 Chloride 106 Carbon Dioxide 26 Anion Gap 11 BUN 46 H Creatinine 1.62 H Est GFR ( Amer) 52 L Est GFR (Non-Af Amer) 43 L Glucose 139 H Calcium 9.0 12/23/16 12/23/16 12/24/16 17:10 17:10 00:15 Creatine Kinase CK-MB (CK-2) 0.72 0.53 Troponin I < 0.012 Cancelled 0.012 12/24/16 05:33 Creatine Kinase 89 CK-MB (CK-2) Troponin I Impressions: Chest X-Ray 12/23/16 10:57 IMPRESSION: NO ACUTE RADIOGRAPHIC FINDING IN THE CHEST. Assessment & Plan - Diagnosis (1) Chest pain Qualifiers: Chest pain type: chest pain on breathing Qualified Code(s): R07.1 - Chest pain on breathing; R07.81 - Pleurodynia Is this a current diagnosis for this admission?: Yes Plan: Pt had nuclear stress test that demonstrated EF for 33%. Awaiting Cardiology recommendation. 2 D Echo pending. (2) HTN (hypertension) Qualifiers: Hypertension type: essential hypertension Qualified Code(s): I10 - Essential (primary) hypertension Is this a current diagnosis for this admission?: Yes Plan: Will continue current treatment plan. (3) Acute cystitis Is this a current diagnosis for this admission?: Yes Plan: Gram Neg Rods: Will place on Rocephin. Micro states that Urine Culture will result tomorrow. (4) Hyperglycemia Is this a current diagnosis for this admission?: Yes Plan: SSI (5) Opiate dependence Qualifiers: Substance use status: uncomplicated Qualified Code(s): F11.20 - Opioid dependence, uncomplicated Is this a current diagnosis for this admission?: Yes Plan: Pt is currently on oxycodone as outpatient. (6) Tobacco abuse Is this a current diagnosis for this admission?: Yes Plan: Encourage stop smoking. (7) Urinary retention Is this a current diagnosis for this admission?: Yes Plan: Straight cath as needed. (8) Osteomyelitis of toe of right foot Is this a current diagnosis for this admission?: Yes Plan: Continue dressing changes. (9) Peripheral neuropathy Qualifiers: Is this a current diagnosis for this admission?: Yes Plan: Continue Neurontin. (10) Systolic CHF Qualifiers: Congestive heart failure chronicity: unspecified congestive heart failure chronicity Qualified Code(s): I50.20 - Unspecified systolic (congestive) heart failure Is this a current diagnosis for this admission?: Yes Plan: EF on nuclear 33%. Pt's EF in 09/04 was 65%. Awaiting Cardiology recommendations. - Time Time Spent with patient: 15-24 minutes
[2016-12-26] MEDS: TAMSULOSIN HCL 0.4 MG CAP.SR.24H PO SCH (18:27)
[2016-12-26] MEDS: INSULIN GLARGINE,HUM.REC.ANLOG 300 UNIT/3 ML INSULN.PEN SUBCUT SCH (22:31)
[2016-12-27] MEDS: NITROGLYCERIN 2% OINTMENT 1 GM PACKET TP SCH ×2 (06:01→11:34)
[2016-12-27 06:55] LABS: ANION GAP 13 (5-19); BLOOD UREA NITROGEN 45 mg/dL (7-20); CALCIUM 9.5 mg/dL (8.4-10.2); CARBON DIOXIDE 25 mmol/L (22-30); CHLORIDE 105 mmol/L (98-107); CREATININE RESULT 1.51 mg/dL (0.52-1.25); GLUCOSE 90 mg/dL (75-110); POTASSIUM 4.1 mmol/L (3.6-5.0); SODIUM 142.6 mmol/L (137-145)
[2016-12-27] MEDS: FUROSEMIDE 40 MG TABLET PO SCH (07:29)
[2016-12-27] MEDS: CALCIUM CARBONATE 500 MG TAB.CHEW PO SCH ×2 (07:30→11:33)
[2016-12-27] MEDS: INSULIN LISPRO 100 UNIT/ML 3 ML VIAL SUBCUT SCH ×3 (07:35→17:30)
[2016-12-27] MEDS: DOCUSATE SODIUM 100 MG CAPSULE PO SCH (09:13)
[2016-12-27] MEDS: CILOSTAZOL 100 MG TABLET PO SCH (09:13)
[2016-12-27] MEDS: ASPIRIN 325 MG TABLET, ENT COATED PO SCH (09:13)
[2016-12-27] MEDS: SENNOSIDES/DOCUSATE 8.6-50 MG 1 EACH TABLET PO SCH (09:13)
[2016-12-27] MEDS: CARVEDILOL 12.5 MG TABLET PO SCH (09:14)
[2016-12-27] MEDS: AMLODIPINE BESYLATE 5 MG TABLET PO SCH (09:15)
[2016-12-27] MEDS: CEFTRIAXONE 1 GM/D5W RTU 1 GM/50 ML RTUPB IV SCH (09:16)
[2016-12-27] MEDS: SACUBITRIL/VALSARTAN 97 MG/103 MG TABLET PO SCH (09:16)
[2016-12-27] MEDS: POLYETHYLENE GLYCOL 3350 POWDER 17 GM/1 PACKET PO SCH (09:16)
--- NOTE | 2016-12-27 12:28 | PDOC PROGRESS REPORT ---
Subjective Progress Note for:: 12/26/16 Subjective:: Stable, Patient seems to be doing better. Pt is denying any chest arm or neck discomfort. Patient denying any PND, orthopnea. Patient denied any sustained palpitations, dizziness, syncope, near syncope. Patient denying any fever chills. Patient denying any other significant discomfort. Patient is maintaining sinus rhythm. Review of systems: Rest review of systems negative. Medications: Medications have been reviewed. Physical Exam Vital Signs: Temp Pulse Resp BP Pulse Ox 97.8 F 77 17 157/81 H 96 12/26/16 19:54 12/26/16 19:54 12/26/16 19:54 12/26/16 19:54 12/26/16 19:54 Intake & Output 12/25/16 12/26/16 12/27/16 06:59 06:59 06:59 Intake Total 748 560 Output Total 446 565 8909 Balance -850 -142 -700 Weight 94.4 kg 97.5 kg Exam: GENERAL: well-nourished and in no acute distress. Alert and oriented x3 HEAD: Atraumatic, normocephalic. EYES: Pupils equal round and reactive to light, extraocular movements intact, sclera anicteric, conjunctiva are normal. ENT: TMs normal, nares patent, oropharynx clear without exudates. Moist mucous membranes. No oral ulcerations or bleeding gums noted NECK: supple without lymphadenopathy. Trachea is central. No cervical or axillary lymphadenopathy noted. Carotids are 2+, JVD WNL LUNGS: Respiration seems nonlabored, no significant accessory muscle action noted. Breath sounds clear to auscultation bilaterally and equal noted. No wheezes rales or rhonchi noted. No significant dullness noted on percussion. CHEST: Palpation of the chest wall shows no significant chest wall tenderness. No other significant abnormalities noted. HEART: [place] [employer], No PSH, 1/6 WM aortic area, 1/6 sevilla systolic murmur mitral area, no rubs, no gallops. ABDOMEN: Soft, no significant tenderness appreciated, normoactive bowel sounds. No guarding, no rebound. No rigidity noted . No masses appreciated. EXTREMITIES: Pedal pulses are 1-2+, no calf tenderness noted. No clubbing or cyanosis.trace to 1+ pedal edema noted NEUROLOGICAL: Focused neurological exam paraplegia and some weakness left upper extremity.. PSYCH: Normal mood, normal affect. Judgment and insight within normal limits. SKIN: No significant ecchymosis, rash, ulcerations or signs of pruritus noted. MUSCULOSKELETAL EXAM: No significant joint swelling noted. Results Laboratory Results: 12/26/16 04:22 12/26/16 04:22 Sodium 142.9 Potassium 3.8 Chloride 106 Carbon Dioxide 26 Anion Gap 11 BUN 46 H Creatinine 1.62 H Est GFR ( Amer) 52 L Est GFR (Non-Af Amer) 43 L Glucose 139 H Calcium 9.0 12/23/16 12/23/16 12/24/16 17:10 17:10 00:15 Creatine Kinase CK-MB (CK-2) 0.72 0.53 Troponin I < 0.012 Cancelled 0.012 12/24/16 05:33 Creatine Kinase 89 CK-MB (CK-2) Troponin I Impressions: Chest X-Ray 12/23/16 10:57 IMPRESSION: NO ACUTE RADIOGRAPHIC FINDING IN THE CHEST. Assessment & Plan - Diagnosis (1) Chest pain Qualifiers: Chest pain type: unspecified Qualified Code(s): R07.9 - Chest pain, unspecified Is this a current diagnosis for this admission?: Yes (2) Cardiomyopathy Qualifiers: Cardiomyopathy type: unspecified Qualified Code(s): I42.9 - Cardiomyopathy , unspecified Is this a current diagnosis for this admission?: Yes (3) HTN (hypertension) Qualifiers: Hypertension type: essential hypertension Qualified Code(s): I10 - Essential (primary) hypertension Is this a current diagnosis for this admission?: Yes (4) Hyperlipidemia Qualifiers: Hyperlipidemia type: unspecified Qualified Code(s): E78.5 - Hyperlipidemia , unspecified - Notes Notes: Nuclear stress test results were reviewed with the patient. Patient was noted to have decreased perfusion in the inferior wall but could well be artifactual. At this point have recommended medical management. Currently patient is stable without any recurrence. Chest pain: Sounds atypical and mostly GI related. Currently chest pain-free. Nuclear stress images were difficult to interpret because of increased visceral uptake. Feel that patient is clinically stable without any recurrent chest pain and negative enzymes and is without any significant EKG changes. Since EKG gated imaging showed depressed LVEF will order a 2D echo. Would recommend statins, beta-milton, PATRICK inhibitor/ARB therapy as well as antiplatelet therapy. Cardiomyopathy: We will repeat a twelve-lead 2D echocardiogram. Hypertension: Reasonably well controlled. Blood pressure goal in this patient is 135/85 or less. This was discussed with the patient. Currently blood pressure under reasonable control. Better medication for this patient are PATRICK inhibitor/ARB/beta milton etc. discussed side effects of uncontrolled hypertension and also severe hypotension. Hyperlipidemia: LDL goal is less than 70. Recommend statin therapy at least intermediate or high dose, of high potency status. Periodic lipid panel and liver panel is indicated. Patient to report any significant muscle discomfort or other side effects. - Time Time with patient: Greater than 35 minutes - CODE STATUS was discussed, patient remains DNR. Surrogate decision-maker unchanged. Multiple medical problems were addressed. More than 50% of the time spent coordinating care, discussing management plans with involved caregivers. Management plans discussed with involved personnels. Medical decision making was of moderate to high complexity , patient's has multiple comorbidities. Significant time spent going over nuclear stress test results. Medical management of presumed CAD discussed. Medications reviewed and adjusted accordingly: Yes
--- NOTE | 2016-12-27 12:30 | PDOC PROGRESS REPORT ---
Subjective Progress Note for:: 12/27/16 Subjective:: Patient seems to be doing better with no significant complaints he is suspecting discharged today. 2D echo results were reviewed with the patient. Pt is denying any chest arm or neck discomfort. Patient denying any PND, orthopnea. Patient denied any sustained palpitations, dizziness, syncope, near syncope. Patient denying any fever chills. Patient denying any other significant discomfort. Patient is maintaining sinus rhythm. Review of systems: Rest review of systems negative. Medications: Medications have been reviewed. Physical Exam Vital Signs: Temp Pulse Resp BP Pulse Ox 98.0 F 66 15 169/78 H 97 12/27/16 11:13 12/27/16 11:13 12/27/16 11:13 12/27/16 11:13 12/27/16 11:13 Intake & Output 12/26/16 12/27/16 12/28/16 06:59 06:59 06:59 Intake Total 748 1015 Output Total 890 2760 Balance -142 -1745 Weight 97.5 kg 97.5 kg Exam: GENERAL: well-nourished and in no acute distress. Alert and oriented x3 HEAD: Atraumatic, normocephalic. EYES: Pupils equal round and reactive to light, extraocular movements intact, sclera anicteric, conjunctiva are normal. ENT: TMs normal, nares patent, oropharynx clear without exudates. Moist mucous membranes. No oral ulcerations or bleeding gums noted NECK: supple without lymphadenopathy. Trachea is central. No cervical or axillary lymphadenopathy noted. Carotids are 2+, JVD WNL LUNGS: Respiration seems nonlabored, no significant accessory muscle action noted. Breath sounds clear to auscultation bilaterally and equal noted. No wheezes rales or rhonchi noted. No significant dullness noted on percussion. CHEST: Palpation of the chest wall shows no significant chest wall tenderness. No other significant abnormalities noted. HEART: [place] FOUNDER, No PSH, 1/6 WM aortic area, 1/6 sevilla systolic murmur mitral area, no rubs, no gallops. ABDOMEN: Soft, no significant tenderness appreciated, normoactive bowel sounds. No guarding, no rebound. No rigidity noted . No masses appreciated. EXTREMITIES: Pedal pulses are 1-2+, no calf tenderness noted. No clubbing or cyanosis.trace pedal edema noted. Dystrophic changes noted in both legs. NEUROLOGICAL: Focused neurological exam showed lower extremity weakness both sides with some muscle wasting. Left upper extremity slightly weak. PSYCH: Normal mood, normal affect. Judgment and insight within normal limits. SKIN: No significant ecchymosis, rash, ulcerations or signs of pruritus noted. MUSCULOSKELETAL EXAM: No significant joint swelling noted. Results Laboratory Results: 12/27/16 06:04 12/27/16 06:04 Sodium 142.6 Potassium 4.1 Chloride 105 Carbon Dioxide 25 Anion Gap 13 BUN 45 H Creatinine 1.51 H Est GFR ( Amer) 57 L Est GFR (Non-Af Amer) 47 L Glucose 90 Calcium 9.5 12/24/16 16:50 Clean Catch Midstream Urine Culture - Final Acinetobacter Baumannii/Haem 12/23/16 12/23/16 12/24/16 17:10 17:10 00:15 Creatine Kinase CK-MB (CK-2) 0.72 0.53 Troponin I < 0.012 Cancelled 0.012 12/24/16 05:33 Creatine Kinase 89 CK-MB (CK-2) Troponin I Impressions: Chest X-Ray 12/23/16 10:57 IMPRESSION: NO ACUTE RADIOGRAPHIC FINDING IN THE CHEST. Assessment & Plan - Diagnosis (1) Chest pain Qualifiers: Chest pain type: unspecified Qualified Code(s): R07.9 - Chest pain, unspecified Is this a current diagnosis for this admission?: Yes (2) Cardiomyopathy Qualifiers: Cardiomyopathy type: unspecified Qualified Code(s): I42.9 - Cardiomyopathy , unspecified Is this a current diagnosis for this admission?: Yes (3) HTN (hypertension) Qualifiers: Hypertension type: essential hypertension Qualified Code(s): I10 - Essential (primary) hypertension Is this a current diagnosis for this admission?: Yes (4) Hyperlipidemia Qualifiers: Hyperlipidemia type: unspecified Qualified Code(s): E78.5 - Hyperlipidemia , unspecified - Notes Notes: Nuclear stress test results were reviewed with the patient. 2D echo results discussed. It showed normal LVEF. Mild to moderate mitral regurgitation and mild pulmonary hypertension noted. Chest pain: Sounds atypical and mostly GI related. Currently chest pain-free. Nuclear stress images were difficult to interpret because of increased visceral uptake. Feel that patient is clinically stable without any recurrent chest pain and negative enzymes and is without any significant EKG changes. 2D echo results discussed. Would recommend statins, beta-milton, PATRICK inhibitor/ARB therapy as well as antiplatelet therapy. Cardiomyopathy: It shows normalization of LVEF. No longer need defibrillator placement. Hypertension: Reasonably well controlled. Blood pressure goal in this patient is 135/85 or less. This was discussed with the patient. Currently blood pressure under reasonable control. Better medication for this patient are PATRICK inhibitor/ARB/beta milton etc. discussed side effects of uncontrolled hypertension and also severe hypotension. Hyperlipidemia: LDL goal is less than 70. Recommend statin therapy at least intermediate or high dose, of high potency status. Periodic lipid panel and liver panel is indicated. Patient to report any significant muscle discomfort or other side effects. - Time Time with patient: 15-25 minutes - CODE STATUS : was discussed, patient remains DO NOT RESUSCITATE. Surrogate decision-maker unchanged. Multiple medical problems were addressed. More than 50% of the time spent coordinating care, discussing management plans with involved caregivers. Management plans discussed with involved personnels. Medical decision making was of moderate to high complexity, patient's has multiple comorbidities.
--- NOTE | 2016-12-27 13:22 | PDOC DISCHARGE SUMMARY ---
General - Admit/Disc Date/PCP Admission Date/Primary Care Provider: 12/23/16 12:08 LEXUS GARCIA MD Discharge Date: 12/27/16 - Discharge Diagnosis (1) Chest pain Is this a current diagnosis for this admission?: Yes Summary: Pt had a stress test that did not demonstrate any ischemia. Pt stress test noted an EF of 30's. 2 D Echo demonstrated EF of 45%. Cardiology recommended medical management. (2) Acute cystitis Is this a current diagnosis for this admission?: Yes Summary: There to Acinetobacter: Patient will be discharged on IM Rocephin daily for 5 days. Patient has drug allergy to penicillin and organism is resistant to certain antibiotics. (3) Hyperglycemia Is this a current diagnosis for this admission?: Yes Summary: Resolved (4) Opiate dependence Is this a current diagnosis for this admission?: Yes Summary: Supportive care (5) Tobacco abuse Is this a current diagnosis for this admission?: Yes Summary: Currently no smoking (6) Urinary retention Is this a current diagnosis for this admission?: Yes Summary: [facility] PRN (7) Osteomyelitis of toe of right foot Is this a current diagnosis for this admission?: Yes Summary: Per outpatient physician (8) Peripheral neuropathy Is this a current diagnosis for this admission?: Yes Summary: Supportive care (9) Systolic CHF Is this a current diagnosis for this admission?: Yes (10) HTN (hypertension) Is this a current diagnosis for this admission?: Yes Summary: Will continue current treatment. - Additional Information Resuscitation Status: Do Not Resuscitate Discharge Diet: Cardiac Discharge Activity: Other - Ambulate with assistance Home Medications: Acetaminophen [Tylenol 325 mg Tablet] 650 mg PO Q8HP PRN 12/23/16 Amlodipine Besylate [Norvasc 5 mg Tablet] 5 mg PO DAILY 12/23/16 Aspirin [Aspirin 81 mg Chewable Tablet] 81 mg PO DAILY 12/23/16 Calcium Carbonate [Tums Chewable 500 mg Tab.chew] 1,000 mg PO MEALS 12/23/16 Carvedilol [Coreg 25 mg Tablet] 1 tab PO Q12 12/23/16 Cilostazol [Pletal 100 mg Tablet] 50 mg PO BID 12/23/16 Epoetin Agustin [Procrit Inj 20,000 Unit/1 ml Vial (Renal)] 20,000 unit SUBCUT WE@ 1000 09/04/17 Furosemide [Lasix 20 mg Tablet] 20 mg PO DAILY@1300 12/23/16 Furosemide [Lasix 40 mg Tablet] 40 mg PO QAM 12/23/16 Insulin Degludec [Tresiba Flextouch U-100] 20 unit SQ DAILY 12/23/16 Insulin Lispro [Humalog Insulin (Lispro) 100 unit/mL] 4 unit SUBCUT AC 12/23/16 Lactobacillus Acidophilus [Florajen] 920 mg PO DAILY 12/23/16 Ondansetron [Zofran Odt 4 mg Tablet] 4 mg PO Q6HP PRN 12/23/16 Polyethylene Glycol 3350 [Miralax Powder 17 gm/Packet] 1 packet PO DAILY Promethazine HCl [Phenergan Inj 25 mg/1 ml Vial] 25 mg IM Q6HP PRN 12/23/16 Sacubitril/Valsartan [Entresto 97 mg-103 mg Tablet] 2 each PO Q12 12/23/16 Sennosides/Docusate 8.6-50 mg [Senna Plus Tablet] 1 tab PO BID 12/23/16 Tamsulosin HCl [Flomax 0.4 mg Cap.sr] 0.4 mg PO QPM 12/23/16 Aspirin [Ecotrin 325 mg EC Tablet] 325 mg PO DAILY tabec 12/27/16 Ceftriaxone Sodium [Rocephin Inj 2000 mg Vial] 2,000 mg IM DAILY #5 vial Docusate Sodium [Colace 100 mg Capsule] 100 mg PO BID capsule 12/27/16 Oxycodone HCl [Oxycodone HCl 10 MG Tablet] 10 mg PO DAILY #3 tablet 12/27/16 History of Present Illness Patient complains of: Chest Pain History of Present Illness: FLAG MORELIA THIBODEAUX is a 66 year old male who was admitted for chest pain. Hospital Course Hospital Course: Patient is a 66-year-old gentleman who presented to our facility with complaint of chest pain. Patient reported the chest pain occurred while he was lying in bed eating. Patient was seen by cardiology where he underwent a nuclear stress test that did not demonstrate any evidence of ischemia however on the stress test report there was documentation that patient's EF was 30%. Patient had 2D echo that demonstrated an EF of 45% and Cardiology recommended that patient can you with medical management. Patient was found to have acute cystitis secondary to Acinetobacter. Due to Acinetobacter been resistant to multiple antibiotics and patient had a penicillin allergy decision was made to do IM Rocephin for 5 additional days. She has done well throughout hospitalization will be discharged back to facility. Physical Exam Vital Signs: Temp Pulse Resp BP Pulse Ox 98.0 F 66 15 169/78 H 97 12/27/16 11:13 12/27/16 11:13 12/27/16 11:13 12/27/16 11:13 12/27/16 11:13 Intake & Output 12/26/16 12/27/16 12/28/16 06:59 06:59 06:59 Intake Total 748 1015 Output Total 890 2760 Balance -142 -1745 Weight 97.5 kg 97.5 kg General appearance: PRESENT: no acute distress, well-developed, well-nourished Head exam: PRESENT: atraumatic, normocephalic Eye exam: PRESENT: conjunctiva pink, EOMI. ABSENT: scleral icterus Ear exam: PRESENT: normal external ear exam Mouth exam: PRESENT: dry mucosa Neck exam: ABSENT: carotid bruit, JVD, lymphadenopathy, thyromegaly Respiratory exam: PRESENT: clear to auscultation nathan. ABSENT: rales, rhonchi, wheezes Cardiovascular exam: PRESENT: RRR. ABSENT: diastolic murmur, rubs, systolic murmur Pulses: PRESENT: normal dorsalis pedis pul Vascular exam: PRESENT: normal capillary refill GI/Abdominal exam: PRESENT: normal bowel sounds, soft. ABSENT: distended, guarding, mass, organolmegaly, rebound, tenderness Rectal exam: PRESENT: deferred Extremities exam: PRESENT: full ROM. ABSENT: calf tenderness, clubbing, pedal edema Neurological exam: PRESENT: alert, awake, oriented to person, oriented to place , oriented to time, oriented to situation, CN II-XII grossly intact. ABSENT: motor sensory deficit Psychiatric exam: PRESENT: appropriate affect, normal mood. ABSENT: homicidal ideation, suicidal ideation Skin exam: PRESENT: other - Foot with dressing in place Results Laboratory Results: 12/27/16 06:04 12/27/16 06:04 Sodium 142.6 Potassium 4.1 Chloride 105 Carbon Dioxide 25 Anion Gap 13 BUN 45 H Creatinine 1.51 H Est GFR ( Amer) 57 L Est GFR (Non-Af Amer) 47 L Glucose 90 Calcium 9.5 12/24/16 16:50 Clean Catch Midstream Urine Culture - Final Acinetobacter Baumannii/Haem 12/23/16 12/23/16 12/24/16 17:10 17:10 00:15 Creatine Kinase CK-MB (CK-2) 0.72 0.53 Troponin I < 0.012 Cancelled 0.012 12/24/16 05:33 Creatine Kinase 89 CK-MB (CK-2) Troponin I Impressions: Chest X-Ray 12/23/16 10:57 IMPRESSION: NO ACUTE RADIOGRAPHIC FINDING IN THE CHEST. Qualifiers PATEINT BEING DISCHARGED WITH ANY OF THE FOLLOWING DIAGNOSIS?: No
[2016-12-27] MEDS: FUROSEMIDE 20 MG TABLET PO SCH (13:49)
[2016-12-27 16:13] VITALS: BP 169/79
--- NOTE | 2017-01-03 09:55 | XCELERA REPORT ---
[address] [address] Transthoracic Echocardiogram Report Name: FLAG THIBODEAUX JR Age: 66 yrs Gender: Male : 1950 Patient Status: Inpatient Patient Location: [address] [place] [address] Study Date: 12/26/2016 08:35 AM Height: 75 in Weight: 208 lb BSA: 2.2 m2 Procedure: A complete two-dimensional transthoracic echocardiogram was performed (2D, M-mode, spectral and color flow Doppler). The study was technically adequate with some images being suboptimal in quality. Reason For Study: CP, low EF on nuclear images, CAD Ordering Physician: GRACE MCNULTY Performed By: Kamran Malin Interpretation Summary The left ventricular ejection fraction is normal. LV diastolic function could not be adequately assessed. There is mild concentric left ventricular hypertrophy. The left ventricle is grossly normal size. Wall motion cannot be accurately commented on, but no definite regional wall motion abnormalities noted. The right ventricular systolic function is normal. The right atrium is normal in size The left atrium is mildly dilated. There is no mitral valve stenosis. There is a trace to mild amount of mitral regurgitation There is no aortic valve stenosis No aortic regurgitation is present. There is a mild amount of tricuspid regurgitation There is mild pulmonary hypertension by echo Right ventricular systolic pressure is estimated to be elevated at 30- 40mmHg. There is no pericardial effusion. MMode/2D Measurements & Calculations RVDd: 3.7 cm LVIDd: 6.2 cm FS: 22.7 % Ao root diam: 3.8 cm IVSd: 1.1 cm LVIDs: 4.8 cm EDV(Teich): 192.7 ml LVPWd: 1.2 cm ESV(Teich): 106.4 ml Ao root area: 11.3 cm2 EF(Teich): 44.8 % LA dimension: 4.1 cm Doppler Measurements & Calculations MV E max bib: MV P1/2t max bib: Ao V2 max: LV V1 max P.6 cm/sec 77.9 cm/sec 131.9 cm/sec 1.8 mmHg MV A max bib: MV P1/2t: 62.2 msec Ao max PG: LV V1 max: 93.1 cm/sec 7.0 mmHg 67.1 cm/sec MV E/A: 0.82 MVA(P1/2t): 3.5 cm2 MV dec slope: 366.9 cm/sec2 PA V2 max: TR max bib: RAP systole: 80.0 cm/sec 242.3 cm/sec 10.0 mmHg PA max PG: TR max P.5 mmHg 2.6 mmHg RVSP(TR): 33.5 mmHg Left Ventricle The left ventricle is grossly normal size. There is mild concentric left ventricular hypertrophy. The left ventricular ejection fraction is normal. LV diastolic function could not be adequately assessed. Wall motion cannot be accurately commented on, but no definite regional wall motion abnormalities noted. Right Ventricle The right ventricle is grossly normal size. There is normal right ventricular wall thickness. The right ventricular systolic function is normal. Atria The right atrium is normal in size. The left atrium is mildly dilated. Interarterial septum not well visualized and not well dopplered. Cannot comment on ASD/PFO presence. Mitral Valve The mitral valve is grossly normal. There is no mitral valve stenosis. There is a trace to mild amount of mitral regurgitation. Aortic Valve The aortic valve is grossly normal. There is no aortic valve stenosis. No aortic regurgitation is present. Tricuspid Valve The tricuspid valve is not well visualized, but is grossly normal. There is no tricuspid stenosis. There is a mild amount of tricuspid regurgitation. There is mild pulmonary hypertension by echo. Right ventricular systolic pressure is estimated to be elevated at 30-40mmHg. Pulmonic Valve The pulmonic valve is not well visualized. Great Vessels The aortic root is not well visualized. The inferior vena cava appeared normal and decreased > 50% with respiration (RAP 5-10 mmHg). Effusions There is no pericardial effusion. : GRACE MCNULTY > Grace Mcnulty
== END 2016-12-27 18:00 ==
LOC: ER 10:55 → EH 12:08 → UNDOADMOB 12:21 → EH 12:21 → 4S 14:19
PROVIDERS: ADMIT Family Medicine; ATTEND Family Medicine
DX: R07.1 Chest pain on breathing (principal); R07.81 Pleurodynia; N30.00 Acute cystitis without hematuria; B96.89 Other specified bacterial agents as the cause of diseases classified elsewhere; Z88.0 Allergy status to penicillin; Z16.29 Resistance to other single specified antibiotic; F11.20 Opioid dependence, uncomplicated; R33.9 Retention of urine, unspecified; M86.8X7 Other osteomyelitis, ankle and foot; E11.65 Type 2 diabetes mellitus with hyperglycemia; G62.9 Polyneuropathy, unspecified; I50.22 Chronic systolic (congestive) heart failure; E11.22 Type 2 diabetes mellitus with diabetic chronic kidney disease; I13.0 Hypertensive heart and chronic kidney disease with heart failure and stage 1 through stage 4 chronic kidney disease, or unspecified chronic kidney disease; N18.3 Chronic kidney disease, stage 3 (moderate); I42.9 Cardiomyopathy, unspecified; F17.210 Nicotine dependence, cigarettes, uncomplicated; K59.00 Constipation, unspecified; F41.9 Anxiety disorder, unspecified; E11.42 Type 2 diabetes mellitus with diabetic polyneuropathy; E11.69 Type 2 diabetes mellitus with other specified complication; E11.622 Type 2 diabetes mellitus with other skin ulcer; L97.919 Non-pressure chronic ulcer of unspecified part of right lower leg with unspecified severity; K21.9 Gastro-esophageal reflux disease without esophagitis; R53.1 Weakness; B94.8 Sequelae of other specified infectious and parasitic diseases; Z66 Do not resuscitate; Z79.4 Long term (current) use of insulin; Z79.899 Other long term (current) drug therapy; Z86.14 Personal history of Methicillin resistant Staphylococcus aureus infection; Z98.890 Other specified postprocedural states; Z82.49 Family history of ischemic heart disease and other diseases of the circulatory system; Z48.00 Encounter for change or removal of nonsurgical wound dressing; I69.30 Unspecified sequelae of cerebral infarction
CPT/HCPCS: 93005 ×3; 99285; 36415 ×4; 87086; 82553 ×2; 82962 ×5; 82550 ×2; 83735; 85025; 87088; 80048 ×2; 80053; 81001; 84484 ×2; 87186; 80061; 83880; 93306; 93017; 71010; 78452; 93010 ×3; G0378 ×6; A9500; A9270 ×52; J2785; J3490 ×10; J0696 ×2; J0280; Q9969; J1815

== ENCOUNTER 2017-01-17 10:15 | Emergency (ER) | payer MEDICARE ==
--- NOTE | 2017-01-17 11:18 | ER Document Report ---
ED Seizure - General Chief Complaint: Seizure Stated Complaint: POSSIBLE SEIZURE Time Seen by Provider: 01/17/17 10:50 Mode of Arrival: Stretcher Information source: Relative - HPI Patient complains to provider of: History of seizures Quality of pain: No pain Character of seizure: Complete loss/conscious, Generalized shaking Post-ictal symptoms: Confusion Injuries: None Notes: Patient is a 66-year-old male sent from local group home for her seizure activity, patient's sister at bedside provided most of the information reporting that he has a history of brittle diabetes and had a seizure once approximately 2-3 years ago due to rapid fluctuations in his blood sugar, she denies any changes over the last few days, patient has been afebrile, has been eating well and drinking well, has had no complaints, he is currently at [facility] secondary to osteomyelitis to his foot which resulted in sepsis , he has been there since September 11 of this year, he was apparently seen in this hospital approximately 2 weeks ago according to the sister for chest pain which turned out to be "indigestion", patient denies any complaints at time of evaluation, he was apparently postictal for short period of time after the seizure, however sister reports that he is at his baseline mental status is this point in time, he denies any pain or injury, there was no report of a fall with the seizure - Related Data Allergies/Adverse Reactions: Penicillins Allergy (Intermediate, Verified 12/23/16 11:36) swelling Past Medical History - General Information source: Patient, Relative, Outside Facility Records - Social History Smoking Status: Unknown if Ever Smoked Chew tobacco use (# tins/day): No Frequency of alcohol use: None Drug Abuse: None Family History: CAD, DM, Malignancy - Past Medical History Cardiac Medical History: Reports: Hx Congestive Heart Failure - Chronic systolic , Hx Hypercholesterolemia, Hx Hypertension Denies: Hx Coronary Artery Disease, Hx Heart Attack Pulmonary Medical History: Denies: Hx Asthma, Hx Bronchitis, Hx COPD, Hx Pneumonia, Hx Tuberculosis Neurological Medical History: Denies: Hx Cerebrovascular Accident, Hx Seizures Endocrine Medical History: Reports: Hx Diabetes Mellitus Type 2 Renal/ Medical History: Denies: Hx Peritoneal Dialysis GI Medical History: Reports: Hx Gastroesophageal Reflux Disease Musculoskeltal Medical History: Reports Hx Arthritis Psychiatric Medical History: Denies: Hx Depression Infectious Medical History: Reports: Hx MRSA Past Surgical History: Reports: Hx Internal Defibrillator - With removal, Hx Orthopedic Surgery. Denies: Hx Pacemaker - Immunizations Hx Diphtheria, Pertussis, Tetanus Vaccination: Yes Hx Pneumococcal Vaccination: 01/19/11 Review of Systems - Review of Systems Constitutional: No symptoms reported EENT: No symptoms reported Cardiovascular: No symptoms reported Respiratory: No symptoms reported Gastrointestinal: No symptoms reported Genitourinary: No symptoms reported Male Genitourinary: No symptoms reported Musculoskeletal: No symptoms reported Skin: No symptoms reported Hematologic/Lymphatic: No symptoms reported Neurological/Psychological: Seizure -: Yes All other systems reviewed and negative Physical Exam - Vital signs Vitals: Resp Pulse Ox 17 94 01/17/17 10:27 01/17/17 10:27 Interpretation: Normal - General General appearance: Appears well, Alert - HEENT Head: Normocephalic, Atraumatic Eyes: Normal Pupils: PERRL - Respiratory Respiratory status: No respiratory distress Chest status: Nontender Breath sounds: Normal Chest palpation: Normal - Cardiovascular Rhythm: Regular Heart sounds: Normal auscultation Murmur: No - Abdominal Inspection: Normal Distension: No distension Bowel sounds: Normal Tenderness: Nontender Organomegaly: No organomegaly - Back Back: Normal, Nontender - Extremities General upper extremity: Normal inspection, Nontender, Normal color, Normal ROM , Normal temperature General lower extremity: Normal temperature. No: Nacho's sign - Neurological Neuro grossly intact: Yes Cognition: Normal Orientation: Disoriented to events Fransisca Coma Scale Eye Opening: Spontaneous Dwight Coma Scale Verbal: Oriented Dwight Coma Scale Motor: Obeys Commands Fransisca Coma Scale Total: 15 Speech: Normal Motor strength normal: LUE, RUE, LLE, RLE Sensory: Normal - Psychological Associated symptoms: Normal affect, Normal mood - Skin Skin Temperature: Warm Skin Moisture: Dry Skin Color: Normal Course - Re-evaluation Re-evalutation: 01/17/17 16:37 On reevaluation patient is awake and alert, he is complaining of some pain in his right shoulder at times from a previous rotator cuff injury, and also complains of some pain from scar tissue in his left anterior chest wall where he previously had a pacemaker placed, on evaluation there are no signs of abnormality to this area, no erythema, no fluctuance, with mild tenderness, lab and imaging findings were discussed with patient and family members at bedside which are unremarkable, patient was advised to follow-up with his primary care provider, endocrinology and neurology for reevaluation for possible seizure activity that occurred today, he was discharged with instructions for follow-up , and acknowledges understanding and agreement with this plan - Vital Signs Vital signs: Temp Pulse Resp BP Pulse Ox 98.7 F 15 177/92 H 96 01/17/17 11:01 01/17/17 16:03 01/17/17 16:03 01/17/17 16:03 - Laboratory Result Diagrams: 01/17/17 11:53 01/17/17 11:53 Laboratory results interpreted by me: 01/17/17 01/17/17 01/17/17 11:53 11:53 11:53 RBC 4.00 L Hgb 11.1 L Hct 33.0 L RDW 16.9 H Lymphocytes % 12.6 L Eosinophils % 7.3 H Chloride 110 H BUN 36 H Creatinine 1.43 H Est GFR (Non-Af Amer) 50 L Glucose 112 H POC Glucose 113 H Albumin 3.4 L Urine Protein Urine Ascorbic Acid 01/17/17 12:11 RBC Hgb Hct RDW Lymphocytes % Eosinophils % Chloride BUN Creatinine Est GFR (Non-Af Amer) Glucose POC Glucose Albumin Urine Protein >=500 H Urine Ascorbic Acid 20 H - Diagnostic Test Radiology reviewed: Image reviewed, Reports reviewed Discharge - Discharge Clinical Impression: Seizure Condition: Stable Disposition: HOME, SELF-CARE Instructions: Neurologist New Seizure ([facility]) Additional Instructions: Follow up with your primary care provider and a neurologist in one to 2 days. Return to the emergency room immediately if symptoms worsen or any additional concerns. Referrals: LONNIE GARRISON MD [Primary Care Provider] - Follow up as needed
[2017-01-17 12:12] LABS: ABSOLUTE BASOPHILS # (AUTO) 0.1 10^3/uL (0.0-0.2); ABSOLUTE EOSINOPHILS # (AUTO) 0.5 10^3/uL (0.0-0.6); ABSOLUTE LYMPHOCYTES (AUTO) 0.9 10^3/uL (0.5-4.7); ABSOLUTE MONOCYTES (AUTO) 0.5 10^3/uL (0.1-1.4); ABSOLUTE NEUT (AUTO) 5.2 10^3/uL (1.7-8.2); BASOPHILS % (AUTO) 1.3 % (0-2); EOSINOPHILS % (AUTO) 7.3 % (0-6); HEMOGLOBIN 11.1 g/dL (13.5-17.0); HGB HCT DIFFERENCE 0.3; LYMPHOCYTES % (AUTO) 12.6 % (13-45); MEAN CORPUSCULAR HEMOGLOBIN 27.7 pg (27.0-33.4); MEAN CORPUSCULAR HGB CONC 33.6 g/dL (32.0-36.0); MEAN CORPUSCULAR VOLUME 83 fl (80-97); RED CELL DISTRIBUTION WIDTH 16.9 % (11.5-14.0); SEGMENTED NEUTROPHILS % (AUTO) 71.8 % (42-78); WHITE BLOOD COUNT 7.3 10^3/uL (4.0-10.5)
--- NOTE | 2017-01-17 12:19 | RADIOLOGY REPORT (SQ) ---
EXAM DESCRIPTION: CT HEAD WITHOUT COMPLETED DATE/TIME: 01/17/2017 12:06 pm REASON FOR STUDY: seizure COMPARISON: [address] brain exams since 06/11/2013, most recently 09/12/2016 TECHNIQUE: Axial images acquired through the brain without intravenous contrast. Images reviewed wi th bone, brain and subdural windows. Images stored on PACS. All CT scanners at this facility use dose modulation, iterative reconstruction, and/or weight based d osing when appropriate to reduce radiation dose to as low as reasonably achievable (ALARA). [facility]: Dose Right [facility]: CareDose [facility]: Dose Right [facility]: Teradose 4D [facility]: Smart Solaria RADIATION DOSE: Up-to-date CT equipment and radiation dose reduction techniques were employed. CTDIv ol: 64.6 mGy. DLP: 1163 mGy-cm. mGy. LIMITATIONS: None. FINDINGS: VENTRICLES: Normal size and contour. CEREBRUM: No masses. No acute hemorrhage. No midline shift. No evidence for acute large territory infarction. There are multiple bilateral thalamus and basal ganglia lacunar infarcts, an old right in ferior occipital lobe cortical and subcortical white matter infarct, and diffuse deep periventricular white matter small vessel ischemic change in the bifrontal and biparietal regions. Moderate chronic pontine small vessel ischemic change. CEREBELLUM: No masses. No hemorrhage. No alteration of density. No evidence for acute infarction. EXTRAAXIAL SPACES: No fluid collections. No masses. ORBITS AND GLOBE: No intra- or extraconal masses. Normal contour of globe without masses. CALVARIUM: No fracture. PARANASAL SINUSES: No fluid or mucosal thickening. SOFT TISSUES: No mass or hematoma. OTHER: No other significant finding. IMPRESSION: Extensive small vessel disease. Old right occipital infarct. No gross acute changes. EVIDENCE OF ACUTE STROKE: NO. COMMENT: Quality ID # [id number]: Final reports with documentation of one or more dose reduction techniques (e.g., Automated exposure control, adjustment of the mA and/or kV according to patient size, use of iterative reconstruction technique) TECHNICAL DOCUMENTATION: JOB ID: [id number]- All Rights Reserved
[2017-01-17 12:22] LABS: ALANINE AMINOTRANSFERASE 21 U/L (21-72); ALBUMIN 3.4 g/dL (3.5-5.0); ALKALINE PHOSPHATASE 120 U/L (38-126); ANION GAP 9 (5-19); ASPARTATE AMINO TRANSFERASE 19 U/L (17-59); BILIRUBIN,DIRECT 0.4 mg/dL (0.0-0.4); BILIRUBIN,TOTAL 0.4 mg/dL (0.2-1.3); BLOOD UREA NITROGEN 36 mg/dL (7-20); CARBON DIOXIDE 25 mmol/L (22-30); CHLORIDE 110 mmol/L (98-107); CREATININE RESULT 1.43 mg/dL (0.52-1.25); GLUCOSE 112 mg/dL (75-110); MAGNESIUM 2.2 mg/dL (1.6-2.3); POTASSIUM 4.8 mmol/L (3.6-5.0); SODIUM 143.5 mmol/L (137-145); TOTAL PROTEIN 7.3 g/dL (6.3-8.2)
[2017-01-17 12:25] LABS: ALCOHOL < 10 mg/dL (NONE DETECTED)
[2017-01-17 13:02] LABS: APPEARANCE,URINE CLEAR; BILIRUBIN,URINE NEGATIVE (NEGATIVE); GLUCOSE, URINE NEGATIVE (NEGATIVE); KETONES,URINE NEGATIVE (NEGATIVE); LEUKOCYTE ESTERASE,URINE NEGATIVE (NEGATIVE); NITRITE,URINE NEGATIVE (NEGATIVE); PROTEIN,URINE >=500 mg/dL (NEGATIVE); URINE SPECIFIC GRAVITY 1.007; UROBILINOGEN,URINE NEGATIVE mg/dL (<2.0)
[2017-01-17 13:09] LABS: URINE BARBITURATES SCREEN NEGATIVE; URINE METHADONE SCREEN NEGATIVE; URINE OPIATES LOW NEGATIVE; URINE PHENCYCLIDINE SCREEN NEGATIVE
[2017-01-17] MEDS ORDERED: FUROSEMIDE 20 MG TABLET PO ONE (14:17)
[2017-01-17 16:04] VITALS: BP 177/92
== END 2017-01-17 16:49 | disposition home or self-care (01) ==
LOC: ER 10:15
DX: R56.9 Unspecified convulsions (principal); E10.69 Type 1 diabetes mellitus with other specified complication; M86.9 Osteomyelitis, unspecified; I10 Essential (primary) hypertension; M25.511 Pain in right shoulder; R07.89 Other chest pain; Z88.0 Allergy status to penicillin
CPT/HCPCS: 99285; 36415; 82962; 80307 ×2; 83735; 85025; 80053; 81001; 70450; A9270

== ENCOUNTER → 2017-02-04 | Outpatient (CLI) | payer MEDICARE ==
--- NOTE | 2017-02-04 16:19 | XCELERA REPORT ---
[address] [address] Lower Extremity Arterial Evaluation Name: FLAG HOLLIDAY JR Age: 66 yrs Gender: Male : 1950 Patient Status: Outpatient Patient Location: Study Date: 02/04/2017 10:53 AM Procedure: A color flow and duplex scan of the lower extremity arteries was performed bilaterally with velocity and waveform anaylsis. Ankle brachial indicies performed. Reason For Study: ULCER Ordering Physician: INES HOLLIDAY Performed By: aKmran Malin Measurements and Calculations Right Left SPECIALIST MANAGERS PSV 92.6 94.8 cm/sec Prox PFA PSV -69.0 -80.0 cm/sec Dist SFA PSV -62.9 -81.6 cm/sec Dist Pop A PSV 72.0 88.6 cm/sec Dist LOUIS PSV 86.6 128.5 cm/sec Prox FAGOTING MACHINE OPERATOR PSV 29.5 75.5 cm/sec Giuliano Pedis PSV 51.5 -117.3 cm/sec Right Side Arterial Evaluation Normal velocity and triphasic waveforms noted from the Common Femoral artery to the Popliteal. Biphasic in the Anterior Tibial artery. Occluded Posterior Tibial artery with biphasic reconstitution. 0-19% stenosis at the Anterior Tibial artery. Occlusion with reconstitution in the Posterior Tibial artery. Ankle Brachial index was not obtainable, non compressible. Left Side Arterial Evaluation Normal velocity and triphasic waveforms noted from the Common Femoral artery to the Popliteal. Biphasic in the Anterior Tibial artery. Occluded Posterior Tibial artery with biphasic reconstitution. 0-19% stenosis at the Anterior Tibial artery. Occlusion with reconstitution in the Posterior Tibial artery. Ankle Brachial index was not obtainable, non compressible. Interpretation Summary Moderate hemodynamically significant lesions in the bilateral lower extremities, on duplex imaging, at rest. : INES HOLLIDAY > Ines Holliday
== END ==
LOC: SP 10:18
PROVIDERS: ATTEND Surgery
DX: L97.222 Non-pressure chronic ulcer of left calf with fat layer exposed (principal)
CPT/HCPCS: 93925

== ENCOUNTER 2017-03-04 13:09 | Emergency (ER) | payer MEDICARE, MEDICAID ==
--- NOTE | 2017-03-04 14:24 | ER Document Report ---
ED Blood Pressure Problem - General Chief Complaint: High Blood Pressure Stated Complaint: BLOOD PRESSURE ISSUE Time Seen by Provider: 03/04/17 14:24 Notes: The patient is a 66-year-old male, past medical history hypertension, CHF, diabetes, presents from [facility] after his blood pressure was 184/112. Patient had his Norvasc increased from 5 mg to 10 mg daily yesterday. He is having no symptoms at this time, other than a slight itchy rash around his eyes. He denies chest pain, shortness of breath, back pain, nausea, vomiting, abdominal pain, leg swelling, blurry vision or headache. TRAVEL OUTSIDE OF THE [place] IN LAST 30 DAYS: No - Related Data Allergies/Adverse Reactions: Penicillins Allergy (Intermediate, Verified 12/23/16 11:36) swelling Past Medical History - General Information source: Patient - Social History Smoking Status: Unknown if Ever Smoked Family History: CAD, DM, Malignancy Patient has suicidal ideation: No Patient has homicidal ideation: No - Past Medical History Cardiac Medical History: Reports: Hx Congestive Heart Failure - Chronic systolic , Hx Hypercholesterolemia, Hx Hypertension Denies: Hx Coronary Artery Disease, Hx Heart Attack Pulmonary Medical History: Denies: Hx Asthma, Hx Bronchitis, Hx COPD, Hx Pneumonia, Hx Tuberculosis Neurological Medical History: Denies: Hx Cerebrovascular Accident, Hx Seizures Endocrine Medical History: Reports: Hx Diabetes Mellitus Type 2 Renal/ Medical History: Denies: Hx Peritoneal Dialysis GI Medical History: Reports: Hx Gastroesophageal Reflux Disease Musculoskeltal Medical History: Reports Hx Arthritis Psychiatric Medical History: Denies: Hx Depression Infectious Medical History: Reports: Hx MRSA Past Surgical History: Reports: Hx Internal Defibrillator - With removal, Hx Orthopedic Surgery. Denies: Hx Pacemaker - Immunizations Hx Diphtheria, Pertussis, Tetanus Vaccination: Yes Hx Pneumococcal Vaccination: 01/19/11 Review of Systems - Review of Systems Notes: REVIEW OF SYSTEMS: CONSTITUTIONAL: -fevers, -chills EENT: -eye pain, -difficulty swallowing, -nasal congestion CARDIOVASCULAR:-chest pain, -syncope. RESPIRATORY: -cough, -SOB GASTROINTESTINAL: -abdominal pain, - nausea, -vomiting, -diarrhea GENITOURINARY: -dysuria, -hematuria MUSCULOSKELETAL: -back pain, -neck pain SKIN: +rash around eyes HEMATOLOGIC: -easy bruising or bleeding. LYMPHATIC: -swollen, enlarged glands. NEUROLOGICAL: -altered mental status or loss of consciousness, -headache, - neurologic symptoms PSYCHIATRIC: -anxiety, -depression. ALL OTHER SYSTEMS REVIEWED AND NEGATIVE. Physical Exam - Vital signs Vitals: Resp BP Pulse Ox 15 183/92 H 93 03/04/17 13:24 03/04/17 13:24 03/04/17 13:24 - Notes Notes: PHYSICAL EXAMINATION: GENERAL: Well-appearing, well-nourished and in no acute distress. HEAD: Atraumatic, normocephalic. EYES: Mild pruritic rash around eyes. Pupils equal round and reactive to light, extraocular movements intact, sclera anicteric, conjunctiva are normal. ENT: nares patent, oropharynx clear without exudates. Moist mucous membranes. NECK: Normal range of motion, supple without lymphadenopathy LUNGS: Breath sounds clear to auscultation bilaterally and equal. No wheezes rales or rhonchi. HEART: Regular rate and rhythm without murmurs ABDOMEN: Soft, nontender, normoactive bowel sounds. No guarding, no rebound. No masses appreciated. EXTREMITIES: Normal range of motion, no pitting or edema. No cyanosis. NEUROLOGICAL: Cranial nerves grossly intact. Normal speech, normal gait. Normal sensory and motor exams. PSYCH: Normal mood, normal affect. Course - Re-evaluation Re-evalutation: 03/04/17 15:15 Spoke to patient's PMD, Dr. Beau Osuna, and he did not hear from the [facility] about elevated blood pressures and did not send the patient to the emergency room. Since patient just increase his Norvasc from 5 mg to 10 mg yesterday, will continue this dose and have patient follow-up with primary care physician and sole scraper for a recheck of his symptoms. Will begin Zyrtec to help with the mild pruritus around his right eye. There is no evidence of orbital or periorbital cellulitis. Given return precautions and he understands. - Vital Signs Vital signs: Temp Pulse Resp BP Pulse Ox 24 H 183/92 H 96 03/04/17 14:01 03/04/17 13:24 03/04/17 14:01 Discharge - Discharge Clinical Impression: Pruritic rash Hypertension Qualifiers: Hypertension type: unspecified Qualified Code(s): I10 - Essential (primary) hypertension Condition: Good Disposition: HOME, SELF-CARE Additional Instructions: After speaking with Dr. Raffy Cintron, you should continue your 10 mg Norvasc every day and follow-up to see if you need any further blood pressure adjustments. You may add Zyrtec 10 mg every 24 hours to help with any itchiness around the eye. HIGH BLOOD PRESSURE REQUIRING TREATMENT: Your blood pressure is high. This is called "hypertension." Today's reading was 170/93 (normal is less than 140/90). Your history and exam suggest that this is not a temporary problem. You need treatment of your blood pressure. If left untreated, high blood pressure greatly increases your risk of heart attack and stroke. Please don't ignore this problem. If you have blood pressure medicine but aren't using it regularly, start taking it again. Some simple things you can do to help are: Get some aerobic exercise for at least 20 minutes on a daily basis. (See your doctor before beginning any new exercise program.) Eat a low-fat diet. Lose excess weight. Avoid salty foods and avoid adding salt to any of the foods you eat. Avoid diet pills, decongestants, "energizing" herbs, and other medicines that elevate blood pressure. There are many different medicines that treat blood pressure. If your medication causes unpleasant side effects, call your doctor. There are others you can try. Treating hypertension is a life-long investment in your health. CALCIUM CHANNEL BLOCKERS: A medication of the calcium channel milton type has been prescribed for you. Examples of this type of medicine are Calan, Isoptin, Procardia, and Cardizem. These medicines have a variety of uses, including prevention of angina attacks, treatment of blood pressure, regulation of certain heart rhythm problems, and prevention of migraine headaches. Calcium channel blockers work by interfering with the flow of calcium in cell membranes. This results in dilation of blood vessels, and slowing of electrical conduction in the heart. A slight dizziness (due to a fall in blood pressure) may occur with the first dose, and sometimes even with later doses. This may make you prone to dizziness if you stand up suddenly. Call the doctor if lightheadedness is severe, or if you develop palpitations, shortness of breath, or any other new or alarming symptoms. FOLLOW-UP CARE: If you have been referred to a physician for follow-up care, call the physician s office for an appointment as you were instructed or within the next two days. If you experience worsening or a significant change in your symptoms, notify the physician immediately or return to the Emergency Department at any time for re-evaluation. Prescriptions: Cetirizine HCl [Zyrtec 10 mg Tablet] 1 tab PO DAILY #10 tablet Forms: Elevated Blood Pressure Referrals: LEXUS GARCIA MD [Primary Care Provider] - Follow up as needed
[2017-03-04] MEDS ORDERED: CETIRIZINE 10 MG TABLET PO ONE (15:21)
[2017-03-04 15:28] VITALS: BP 176/93
== END 2017-03-04 16:05 | disposition home or self-care (01) ==
LOC: ER 13:09
DX: I10 Essential (primary) hypertension (principal); Z79.899 Other long term (current) drug therapy; R21 Rash and other nonspecific skin eruption; L29.8 Other pruritus; E11.9 Type 2 diabetes mellitus without complications; Z86.14 Personal history of Methicillin resistant Staphylococcus aureus infection
CPT/HCPCS: 99283; A9270

== ENCOUNTER 2017-04-23 16:20 | Inpatient (IN) | payer MEDICARE, MEDICAID ==
--- NOTE | 2017-04-23 16:56 | ER Document Report ---
ED General - General Chief Complaint: Edema Stated Complaint: SHORTNESS OF BREATH Time Seen by Provider: 04/23/17 16:32 Information source: Patient Cannot obtain history due to: Dementia Notes: Patient arrives via EMS from a local care facility with complaint of edema, which has been increasing for the last 3 days. Patient is very poor historian. When I ask him how long his swelling has been increased he just says "quite a while". He denies any pain. He specifically denies shortness of breath. TRAVEL OUTSIDE OF THE [place] IN LAST 30 DAYS: No - HPI Onset: Other - FEW DAYS?? Onset/Duration: Gradual Quality of pain: No pain Severity: Moderate Associated symptoms: Leg swelling. denies: Chest pain, Chills, Nonproductive cough, Productive cough, Fever, Shortness of breath, Sweating Exacerbated by: Denies Relieved by: Denies Similar symptoms previously: Yes - APPARENTLY IS A CHRONIC PROBLEM Recently seen / treated by doctor: No - Related Data Allergies/Adverse Reactions: Penicillins Allergy (Intermediate, Verified 04/23/17 16:38) swelling Past Medical History - General Information source: Relative, Transfer Record - Social History Smoking Status: Unknown if Ever Smoked Chew tobacco use (# tins/day): No Frequency of alcohol use: None Drug Abuse: None Lives with: Family - WAS DISCHARGED FROM REHAB FACILITY 04/11. Family History: CAD, DM, Malignancy Patient has suicidal ideation: No Patient has homicidal ideation: No - Past Medical History Cardiac Medical History: Reports: Hx Congestive Heart Failure - Chronic systolic , Hx Hypercholesterolemia, Hx Hypertension Denies: Hx Coronary Artery Disease, Hx Heart Attack Pulmonary Medical History: Denies: Hx Asthma, Hx Bronchitis, Hx COPD, Hx Pneumonia, Hx Tuberculosis Neurological Medical History: Denies: Hx Cerebrovascular Accident, Hx Seizures Endocrine Medical History: Reports: Hx Diabetes Mellitus Type 2 Renal/ Medical History: Denies: Hx Peritoneal Dialysis GI Medical History: Reports: Hx Gastroesophageal Reflux Disease Musculoskeltal Medical History: Reports Hx Arthritis Psychiatric Medical History: Denies: Hx Depression Infectious Medical History: Reports: Hx MRSA Past Surgical History: Reports: Hx Internal Defibrillator - With removal, Hx Orthopedic Surgery. Denies: Hx Pacemaker - Immunizations Hx Diphtheria, Pertussis, Tetanus Vaccination: Yes Hx Pneumococcal Vaccination: 01/19/11 Review of Systems - Review of Systems -: Yes ROS unobtainable due to patient's medical condition - LIMITED R.O.S. AVAILABLE FROM FAMILY Constitutional: denies: Chills, Fever EENT: No symptoms reported Cardiovascular: Edema - MOSTLY L.E.'s, FACIAL EDEMA IN A.M. FOR LAST 2 DAYS Gastrointestinal: No symptoms reported Musculoskeletal: No symptoms reported Skin: Lesions - STASIS ULCER R. LEG Physical Exam - Vital signs Vitals: Temp Pulse Resp BP Pulse Ox 97.9 F 60 20 138/69 H 100 04/23/17 16:32 04/23/17 16:32 04/23/17 16:32 04/23/17 16:32 04/23/17 16:32 Interpretation: Normal - General General appearance: Appears well, Alert In distress: None - HEENT Head: Normocephalic Eyes: Normal Conjunctiva: Normal Ears: Normal Nasal: Normal Mouth/Lips: Normal Mucous membranes: Normal - Respiratory Respiratory status: No respiratory distress Breath sounds: Rales - FEW BIBASILAR. POOR EXAM, PATIENT DOES NOT TAKE DEEP BREATHS. - Cardiovascular Rhythm: Regular Heart sounds: Normal auscultation Murmur: No - Abdominal Inspection: Obese Bowel sounds: Normal - Back Back: Normal - Extremities General upper extremity: Normal inspection General lower extremity: Edema - 2+, BILAT. FEET & ANKLES. No: Normal inspection - Neurological Neuro grossly intact: Yes Cognition: Inattentive Orientation: Disoriented to events - Skin Skin Temperature: Warm Skin Moisture: Dry Skin Color: Normal Skin Turgor: Elastic Skin irregularity: other - STASIS ULCER R. LEG, DRESSED Course - Vital Signs Vital signs: Temp Pulse Resp BP Pulse Ox 97.9 F 60 20 139/74 H 97 04/23/17 16:32 04/23/17 16:32 04/23/17 16:53 04/23/17 16:52 04/23/17 16:53 - Laboratory Result Diagrams: 04/23/17 17:20 04/23/17 17:20 Laboratory results interpreted by me: 04/23/17 04/23/17 04/23/17 17:20 17:20 17:20 RBC 3.52 L Hgb 10.0 L Hct 29.6 L RDW 16.5 H Eosinophils % 7.3 H Sodium 146.9 H Potassium 3.3 L Chloride 113 H BUN 39 H Creatinine 2.00 H Est GFR ( Amer) 41 L Est GFR (Non-Af Amer) 34 L Glucose 57 L ALT 15 L Creatine Kinase 756 H NT-Pro-B Natriuret Pep 8080 H - Consults DR. VALDEZ Consulted provider: will come to ER Discharge - Discharge Clinical Impression: CHF (congestive heart failure) Qualifiers: Congestive heart failure type: unspecified congestive heart failure type Congestive heart failure chronicity: acute on chronic Qualified Code(s): I50.9 - Heart failure, unspecified HTN (hypertension) Qualifiers: Hypertension type: essential hypertension Qualified Code(s): I10 - Essential ( primary) hypertension Condition: Good Disposition: ADMITTED INPATIENT Admitting Provider: Hospitalist Unit Admitted: Telemetry
[2017-04-23 17:43] LABS: ABSOLUTE EOSINOPHILS # (AUTO) 0.5 10^3/uL (0.0-0.6); ABSOLUTE LYMPHOCYTES (AUTO) 1.1 10^3/uL (0.5-4.7); ABSOLUTE MONOCYTES (AUTO) 0.6 10^3/uL (0.1-1.4); BASOPHILS % (AUTO) 0.6 % (0-2); EOSINOPHILS % (AUTO) 7.3 % (0-6); HEMATOCRIT 29.6 % (37.9-51.0); LYMPHOCYTES % (AUTO) 15.5 % (13-45); MEAN CORPUSCULAR HEMOGLOBIN 28.5 pg (27.0-33.4); MEAN CORPUSCULAR HGB CONC 33.9 g/dL (32.0-36.0); MEAN CORPUSCULAR VOLUME 84 fl (80-97); MONOCYTES % (AUTO) 8.1 % (3-13); PLATELET COUNT 242 10^3/uL (150-450); RED BLOOD COUNT 3.52 10^6/uL (4.35-5.55); RED CELL DISTRIBUTION WIDTH 16.5 % (11.5-14.0); SEGMENTED NEUTROPHILS % (AUTO) 68.5 % (42-78); TOTAL CELLS COUNTED % (AUTO) 100 %; WHITE BLOOD COUNT 7.3 10^3/uL (4.0-10.5)
--- NOTE | 2017-04-23 17:47 | RADIOLOGY REPORT (SQ) ---
EXAM DESCRIPTION: CHEST SINGLE VIEW COMPLETED DATE/TIME: 04/23/2017 5:35 pm REASON FOR STUDY: EDEMA COMPARISON: 12/23/2016 EXAM PARAMETERS: NUMBER OF VIEWS: One view. TECHNIQUE: Single frontal radiographic view of the chest acquired. RADIATION DOSE: NA LIMITATIONS: Patient has made a shallow inspiration. FINDINGS: LUNGS AND PLEURA: There is increased density in the right lung base which has the appearan ce of a small right pleural effusion with associated atelectasis or infiltrate. There is blunting of the left costophrenic angle suggesting a tiny left pleural effusion and there is some minimal associ ated atelectasis or infiltrate in the left lung base. Remaining lung cardenas are clear. MEDIASTINUM AND HILAR STRUCTURES: No masses. Contour normal. HEART AND VASCULAR STRUCTURES: Heart normal in size. Normal vasculature. BONES: No acute findings. HARDWARE: None in the chest. OTHER: No other significant finding. IMPRESSION: Bibasilar densities as noted above. TECHNICAL DOCUMENTATION: JOB ID: [id number] [employer] All Rights Reserved
[2017-04-23 18:01] LABS: ALANINE AMINOTRANSFERASE 15 U/L (21-72); ALBUMIN 3.7 g/dL (3.5-5.0); ALKALINE PHOSPHATASE 102 U/L (38-126); ANION GAP 9 (5-19); ASPARTATE AMINO TRANSFERASE 29 U/L (17-59); BILIRUBIN,DIRECT 0.4 mg/dL (0.0-0.4); BILIRUBIN,TOTAL 0.7 mg/dL (0.2-1.3); BLOOD UREA NITROGEN 39 mg/dL (7-20); CARBON DIOXIDE 25 mmol/L (22-30); CHLORIDE 113 mmol/L (98-107); CREATINE KINASE 756 U/L (55-170); GLUCOSE 57 mg/dL (75-110); POTASSIUM 3.3 mmol/L (3.6-5.0); SODIUM 146.9 mmol/L (137-145)
[2017-04-23 18:13] LABS: CREATINE KINASE MB 3.7 ng/mL (<4.55)
[2017-04-23 18:29] LABS: TROPONIN I 0.047 ng/mL
--- NOTE | 2017-04-23 19:11 | EKG REPORT ---
SEVERITY:- ABNORMAL ECG - SINUS RHYTHM FIRST DEGREE AV BLOCK NONSPECIFIC INTRAVENTRICULAR CONDUCTION DELAY PROBABLE LEFT VENTRICULAR HYPERTROPHY : Confirmed by: Grace Baker 23-Apr-2017 19:11:08
[2017-04-23] MEDS ORDERED: FUROSEMIDE INJ/PF 40 MG/4 ML SDV IV ONE (19:20)
[2017-04-23] MEDS ORDERED: ACETAMINOPHEN 325 MG TABLET PO PRN (19:45)
[2017-04-23] MEDS ORDERED: MAG HYDROX/AL HYDROX/SIMETH SUSP 30 ML UDCUP PO PRN (19:49)
[2017-04-23] MEDS ORDERED: DEXTROSE 40% GEL 15 GM TUBE PO PRN ×2 (19:49)
[2017-04-23] MEDS ORDERED: GLUCAGON,HUMAN RECOMB 1 MG INJ IM PRN (19:49)
[2017-04-23] MEDS ORDERED: DEXTROSE 50%-WATER 25 GM/50 ML DISP.SYRIN IV PRN ×2 (19:49)
[2017-04-23] MEDS ORDERED: NITROGLYCERIN 5 MG (0.2 MG/HR) PATCH.TD24 TD SCH (20:00)
[2017-04-23 21:44] LABS: CREATINE KINASE MB 3.73 ng/mL (<4.55); TROPONIN I 0.043 ng/mL
[2017-04-23] MEDS ORDERED: (PENDING PHARMACY ID) (Carvedilol [Coreg 25 Mg Tablet] 1 TAB) PO SCH (22:00)
[2017-04-23] MEDS: CARVEDILOL 12.5 MG TABLET PO SCH (23:05)
[2017-04-23] MEDS: HEPARIN SOD (PORCINE) 5,000 UNIT/ML 1 ML SYRINGE SUBCUT SCH (23:07)
[2017-04-23] MEDS: POTASSIUM CHLORIDE 10 MEQ TABLET.SA PO SCH (23:08)
[2017-04-24] MEDS: FUROSEMIDE INJ/PF 40 MG/4 ML SDV IV SCH ×3 (00:47→23:35)
[2017-04-24 02:56] LABS: APPEARANCE,URINE SLIGHTLY-CLOUDY; BILIRUBIN,URINE NEGATIVE (NEGATIVE); COLOR,URINE YELLOW; GLUCOSE, URINE NEGATIVE (NEGATIVE); KETONES,URINE NEGATIVE (NEGATIVE); LEUKOCYTE ESTERASE,URINE NEGATIVE (NEGATIVE); NITRITE,URINE NEGATIVE (NEGATIVE); PROTEIN,URINE >=500 mg/dL (NEGATIVE); URINE SPECIFIC GRAVITY 1.009; UROBILINOGEN,URINE NEGATIVE mg/dL (<2.0)
[2017-04-24 03:28] LABS: ABSOLUTE BASOPHILS # (AUTO) 0.1 10^3/uL (0.0-0.2); ABSOLUTE EOSINOPHILS # (AUTO) 0.4 10^3/uL (0.0-0.6); ABSOLUTE LYMPHOCYTES (AUTO) 1.4 10^3/uL (0.5-4.7); ABSOLUTE MONOCYTES (AUTO) 0.5 10^3/uL (0.1-1.4); ABSOLUTE NEUT (AUTO) 3.6 10^3/uL (1.7-8.2); BASOPHILS % (AUTO) 0.9 % (0-2); EOSINOPHILS % (AUTO) 6.9 % (0-6); HEMATOCRIT 24.3 % (37.9-51.0); HEMOGLOBIN 8.2 g/dL (13.5-17.0); LYMPHOCYTES % (AUTO) 22.7 % (13-45); MEAN CORPUSCULAR HEMOGLOBIN 28.1 pg (27.0-33.4); MEAN CORPUSCULAR HGB CONC 33.6 g/dL (32.0-36.0); MEAN CORPUSCULAR VOLUME 84 fl (80-97); MONOCYTES % (AUTO) 8.9 % (3-13); PLATELET COUNT 199 10^3/uL (150-450); RED BLOOD COUNT 2.91 10^6/uL (4.35-5.55); RED CELL DISTRIBUTION WIDTH 16.3 % (11.5-14.0); SEGMENTED NEUTROPHILS % (AUTO) 60.6 % (42-78); TOTAL CELLS COUNTED % (AUTO) 100 %
[2017-04-24] MEDS ORDERED: NORMAL SALINE 1000 ML 500 ML IV ONE (03:36)
[2017-04-24 03:53] LABS: CREATINE KINASE MB 2.34 ng/mL (<4.55); TROPONIN I 0.044 ng/mL
--- NOTE | 2017-04-24 03:54 | PDOC H&P ---
History of Present Illness Admission Date/PCP: 04/23/17 19:56 LEXUS GARCIA MD Patient complains of: Shortness of breath and edema History of Present Illness: FLAG MORELIA THIBODEAUX is a 66 year old male with a past medical history of congestive heart failure, hypertension, diabetes, stage III chronic kidney disease, chronic pain, debility and tobacco dependence. Patient had been at [facility] for the above and released home 04/11, he has subsequently developed shortness of breath and edema prompting evaluation emergency room where he was found to have acute congestive heart failure, uncontrolled hypertension and acute on chronic renal failure. He denies recent change in medications but admits to dietary indiscretion over the holidays and inability to perform daily weights. He receives IV Lasix and referred to the hospitalist for admission. Denying chest pain nausea vomiting Past Medical History Cardiac Medical History: Reports: Congestive Heart Failure - Chronic systolic, Hyperlipidema, Hypertension Denies: Coronary Artery Disease, Myocardial Infarction Pulmonary Medical History: Denies: Asthma, Bronchitis, Chronic Obstructive Pulmonary Disease (COPD), Pneumonia, Tuberculosis Neurological Medical History: Denies: Seizures Endocrine Medical History: Reports: Diabetes Mellitus Type 2 GI Medical History: Reports: Gastroesophageal Reflux Disease Musculoskeltal Medical History: Reports: Arthritis Psychiatric Medical History: Denies: Depression Hematology: Reports: Anemia Infectious Medical History: Reports: Methicillin-Resistant Staph Aureus Past Surgical History Past Surgical History: Reports: Internal Defibrillator - With removal, Orthopedic Surgery Denies: Pacemaker Social History Information Source: Patient, [facility] Records Lives with: Family - WAS DISCHARGED FROM REHAB FACILITY 04/11. Smoking Status: Current Every Day Smoker Cigarettes Packs Per Day: 0.5 Frequency of Alcohol Use: None Hx Recreational Drug Use: No Drugs: None Hx Prescription Drug Abuse: No - Advance Directive Resuscitation Status: Full Code Family History Family History: CAD, DM, Malignancy Parental Family History Reviewed: Yes Children Family History Reviewed: Yes Sibling(s) Family History Reviewed.: Yes Medication/Allergy Home Medications: Amlodipine Besylate [Norvasc 10 mg Tablet] 10 mg PO DAILY 04/23/17 Carvedilol [Coreg 25 mg Tablet] 25 mg PO Q12 04/23/17 Cilostazol [Pletal 100 Mg Tablet] 50 mg PO BID 04/23/17 Epoetin Agustin [Procrit] 20,000 unit IJ WE@1000 04/23/17 Furosemide [Lasix 40 mg Tablet] 40 mg PO Q12 04/23/17 Sacubitril/Valsartan [Entresto 49 mg-51 mg Tablet] 1 each PO BID 04/23/17 Allergies/Adverse Reactions: Penicillins Allergy (Intermediate, Verified 04/23/17 16:38) swelling Review of Systems Constitutional: PRESENT: as per HPI, fatigue, weakness, weight gain. ABSENT: chills, fever(s), headache(s), weight loss Eyes: ABSENT: visual disturbances Ears: ABSENT: hearing changes Cardiovascular: PRESENT: dyspnea on exertion, edema, orthropnea. ABSENT: chest pain, palpitations Respiratory: ABSENT: cough, hemoptysis Gastrointestinal: PRESENT: bloating. ABSENT: abdominal pain, constipation, diarrhea, hematemesis, hematochezia, nausea, vomiting Genitourinary: ABSENT: dysuria, hematuria Musculoskeletal: ABSENT: joint swelling Integumentary: ABSENT: rash, wounds Neurological: ABSENT: abnormal gait, abnormal speech, confusion, dizziness, focal weakness, syncope Psychiatric: ABSENT: anxiety, depression, homidical ideation, suicidal ideation Endocrine: ABSENT: cold intolerance, heat intolerance, polydipsia, polyuria Hematologic/Lymphatic: ABSENT: easy bleeding, easy bruising Physical Exam Vital Signs: Temp Pulse Resp BP Pulse Ox 97.9 F 60 24 H 133/71 H 100 04/23/17 16:32 04/23/17 16:32 04/24/17 02:01 04/24/17 02:01 04/24/17 02:01 Intake & Output 04/22/17 04/23/17 04/24/17 11:59 11:59 11:59 Weight 92.986 kg General appearance: PRESENT: cooperative, mild distress Head exam: PRESENT: atraumatic, normocephalic Eye exam: PRESENT: conjunctiva pink, EOMI, PERRLA. ABSENT: scleral icterus Ear exam: PRESENT: normal external ear exam Mouth exam: PRESENT: moist, tongue midline Neck exam: PRESENT: JVD. ABSENT: carotid bruit, lymphadenopathy, thyromegaly Respiratory exam: PRESENT: accessory muscle use, crackles, prolonged expiratory phas, retraction, symmetrical, tachypnea. ABSENT: rhonchi, stridor, wheezes Cardiovascular exam: PRESENT: gallop, +S1, +S2, systolic murmur, tachycardia Pulses: PRESENT: normal dorsalis pedis pul Vascular exam: PRESENT: normal capillary refill GI/Abdominal exam: PRESENT: normal bowel sounds, soft. ABSENT: distended, guarding, mass, organolmegaly, rebound, tenderness Rectal exam: PRESENT: deferred Extremities exam: PRESENT: +2 edema Neurological exam: PRESENT: alert, awake, oriented to person, oriented to place , oriented to time, oriented to situation, CN II-XII grossly intact. ABSENT: motor sensory deficit Psychiatric exam: PRESENT: appropriate affect, normal mood. ABSENT: homicidal ideation, suicidal ideation Skin exam: PRESENT: dry, intact, warm. ABSENT: cyanosis, rash Results Laboratory Results: 04/24/17 03:15 04/23/17 04/24/17 04/24/17 21:00 02:35 03:15 WBC 6.0 RBC 2.91 L Hgb 8.2 L Hct 24.3 L MCV 84 MCH 28.1 MCHC 33.6 RDW 16.3 H Plt Count 199 Seg Neutrophils % 60.6 Lymphocytes % 22.7 Monocytes % 8.9 Eosinophils % 6.9 H Basophils % 0.9 Absolute Neutrophils 3.6 Absolute Lymphocytes 1.4 Absolute Monocytes 0.5 Absolute Eosinophils 0.4 Absolute Basophils 0.1 TSH 1.68 Urine Color YELLOW Urine Appearance SLIGHTLY-CLOUDY Urine pH 5.0 Ur Specific [place] 1.009 Urine Protein >=500 H Urine Glucose (UA) NEGATIVE Urine Ketones NEGATIVE Urine Blood NEGATIVE Urine Nitrite NEGATIVE Ur Leukocyte Esterase NEGATIVE Urine WBC (Auto) 5 Urine RBC (Auto) 1 04/23/17 04/23/17 21:00 21:00 Creatine Kinase 808 H CK-MB (CK-2) 3.73 Troponin I 0.043 Impressions: Chest X-Ray 04/23/17 16:34 IMPRESSION: Bibasilar densities as noted above. Assessment & Plan - Diagnosis (1) Congestive heart failure Qualifiers: Congestive heart failure type: unspecified congestive heart failure type Congestive heart failure chronicity: acute on chronic Qualified Code(s): I50.9 - Heart failure, unspecified Is this a current diagnosis for this admission?: Yes Plan: Telemetry admission, CHF care set, fluid restriction, optimization of blood pressure, diuresis, BiPAP and education (2) HTN (hypertension) Qualifiers: Hypertension type: essential hypertension Qualified Code(s): I10 - Essential (primary) hypertension Is this a current diagnosis for this admission?: Yes Plan: Please see #1 (3) Acute renal failure Qualifiers: Acute renal failure type: unspecified Qualified Code(s): N17.9 - Acute kidney failure, unspecified Is this a current diagnosis for this admission?: Yes Plan: Acute on chronic renal failure, avoid nephrotoxic meds and doses evaluate total CK for rhabdomyolysis. Reevaluate chemistry (4) Tobacco abuse Is this a current diagnosis for this admission?: Yes Plan: Tobacco Dependence patient received tobacco cessation counseling and offered nicotine replacement options (5) Anemia Is this a current diagnosis for this admission?: Yes Plan: Anemia workup pending (6) Rhabdomyolysis Qualifiers: Rhabdomyolysis type: non-traumatic Qualified Code(s): M62.82 - Rhabdomyolysis Is this a current diagnosis for this admission?: Yes Plan: No evidence for trauma evaluation of previous admissions remarkable for chronic total CK elevation. Will tract to verify downtrending. - Time Time Spent: 50 to 70 Minutes - Inpatient Certification Medical Necessity: Need Close Monitoring Due to Risk of Patient Decompensation
[2017-04-24 04:06] LABS: ABSOLUTE RETICS # 0.053 10^6/uL (0.028-0.122); RETICULOCYTE COUNT (AUTO) 1.82 % (0.66-2.85)
[2017-04-24 04:10] LABS: IRON(TIBC) 35.2 ug/dL (49-181)
[2017-04-24 10:13] LABS: CREATINE KINASE MB 2.1 ng/mL (<4.55); TROPONIN I 0.046 ng/mL
[2017-04-24] MEDS: HEPARIN SOD (PORCINE) 5,000 UNIT/ML 1 ML SYRINGE SUBCUT SCH ×2 (10:51→14:05)
--- NOTE | 2017-04-24 11:01 | PDOC PROGRESS REPORT ---
Subjective Progress Note for:: 04/24/17 Subjective:: Patient is upset because his food is cold Reason For Visit: HEART FAILURE EXACERBATION, TOMMY, OBESITY, DIABETES Physical Exam Vital Signs: Temp Pulse Resp BP Pulse Ox 97.9 F 60 14 132/74 H 94 04/23/17 16:32 04/23/17 16:32 04/24/17 08:32 04/24/17 08:32 04/24/17 08:32 Intake & Output 04/23/17 04/24/17 04/25/17 06:59 06:59 06:59 Weight 92.986 kg General appearance: PRESENT: no acute distress Eye exam: PRESENT: conjunctiva pink. ABSENT: scleral icterus Mouth exam: PRESENT: moist, tongue midline Neck exam: ABSENT: JVD Respiratory exam: PRESENT: rales. ABSENT: rhonchi, wheezes Cardiovascular exam: PRESENT: RRR. ABSENT: diastolic murmur, rubs, systolic murmur GI/Abdominal exam: PRESENT: normal bowel sounds, soft. ABSENT: distended, guarding, mass, organolmegaly, rebound, tenderness Extremities exam: PRESENT: pedal edema. ABSENT: calf tenderness, clubbing Neurological exam: PRESENT: alert, awake, oriented to person, oriented to place Psychiatric exam: PRESENT: flat affect Skin exam: PRESENT: dry, intact, warm. ABSENT: cyanosis, rash Results Laboratory Results: 04/24/17 03:15 04/23/17 04/24/17 04/24/17 21:00 02:35 03:15 WBC 6.0 RBC 2.91 L Hgb 8.2 L Hct 24.3 L MCV 84 MCH 28.1 MCHC 33.6 RDW 16.3 H Plt Count 199 Seg Neutrophils % 60.6 Lymphocytes % 22.7 Monocytes % 8.9 Eosinophils % 6.9 H Basophils % 0.9 Absolute Neutrophils 3.6 Absolute Lymphocytes 1.4 Absolute Monocytes 0.5 Absolute Eosinophils 0.4 Absolute Basophils 0.1 Retic Count (auto) Absolute Retic Iron TIBC % Saturation Ferritin Vitamin B12 Folate TSH 1.68 Urine Color YELLOW Urine Appearance SLIGHTLY-CLOUDY Urine pH 5.0 Ur Specific [place] 1.009 Urine Protein >=500 H Urine Glucose (UA) NEGATIVE Urine Ketones NEGATIVE Urine Blood NEGATIVE Urine Nitrite NEGATIVE Ur Leukocyte Esterase NEGATIVE Urine WBC (Auto) 5 Urine RBC (Auto) 1 04/24/17 04/24/17 03:15 03:15 WBC RBC Hgb Hct MCV MCH MCHC RDW Plt Count Seg Neutrophils % Lymphocytes % Monocytes % Eosinophils % Basophils % Absolute Neutrophils Absolute Lymphocytes Absolute Monocytes Absolute Eosinophils Absolute Basophils Retic Count (auto) 1.82 Absolute Retic 0.053 Iron 35.2 L TIBC 220 L % Saturation 16 Ferritin 97.20 Vitamin B12 340.0 Folate 10.30 TSH Urine Color Urine Appearance Urine pH Ur Specific [place] Urine Protein Urine Glucose (UA) Urine Ketones Urine Blood Urine Nitrite Ur Leukocyte Esterase Urine WBC (Auto) Urine RBC (Auto) 04/23/17 04/23/17 04/24/17 21:00 21:00 03:15 Creatine Kinase 808 H 563 H CK-MB (CK-2) 3.73 Troponin I 0.043 04/24/17 04/24/17 04/24/17 03:15 09:25 09:25 Creatine Kinase 570 H CK-MB (CK-2) 2.34 2.10 Troponin I 0.044 0.046 Impressions: Chest X-Ray 04/23/17 16:34 IMPRESSION: Bibasilar densities as noted above. Assessment & Plan - Diagnosis (1) Congestive heart failure Qualifiers: Congestive heart failure type: unspecified congestive heart failure type Congestive heart failure chronicity: acute on chronic Qualified Code(s): I50.9 - Heart failure, unspecified Is this a current diagnosis for this admission?: Yes Plan: Continue with IV Lasix (2) Acute renal failure Qualifiers: Acute renal failure type: unspecified Qualified Code(s): N17.9 - Acute kidney failure, unspecified Is this a current diagnosis for this admission?: Yes Plan: We will follow creatinine closely as we diurese the patient (3) Anemia Is this a current diagnosis for this admission?: Yes Plan: The patient's hemoglobin has dropped overnight. No evidence for active bleeding. Will watch closely. (4) HTN (hypertension) Qualifiers: Hypertension type: essential hypertension Qualified Code(s): I10 - Essential (primary) hypertension Is this a current diagnosis for this admission?: Yes Plan: Continue Coreg (5) GERD (gastroesophageal reflux disease) Qualifiers: Esophagitis presence: esophagitis presence not specified Qualified Code(s) : K21.9 - Gastro-esophageal reflux disease without esophagitis Is this a current diagnosis for this admission?: Yes (6) Hyperlipidemia Qualifiers: Hyperlipidemia type: unspecified Qualified Code(s): E78.5 - Hyperlipidemia , unspecified Is this a current diagnosis for this admission?: Yes (7) Peripheral neuropathy Qualifiers: Is this a current diagnosis for this admission?: Yes (8) Rhabdomyolysis Qualifiers: Rhabdomyolysis type: non-traumatic Qualified Code(s): M62.82 - Rhabdomyolysis Is this a current diagnosis for this admission?: Yes Plan: We will monitor the creatinine kinase (9) Tobacco abuse Is this a current diagnosis for this admission?: Yes - Time Time Spent with patient: 25-34 minutes - Inpatient Certification Medical Necessity: Need Close Monitoring Due to Risk of Patient Decompensation
[2017-04-24] MEDS: CARVEDILOL 12.5 MG TABLET PO SCH ×2 (11:03→23:41)
[2017-04-24] MEDS: ASPIRIN 81 MG TABLET, CHEWABLE PO SCH (11:03)
[2017-04-24] MEDS: DOCUSATE SODIUM 100 MG CAPSULE PO SCH ×2 (11:04→18:28)
[2017-04-24] MEDS: CILOSTAZOL 100 MG TABLET PO SCH ×2 (11:04→18:33)
[2017-04-24] MEDS: POLYETHYLENE GLYCOL 3350 POWDER 17 GM/1 PACKET PO SCH (11:09)
[2017-04-24] MEDS: IRON POLYSACCHARIDES COMPLEX 150 MG CAPSULE PO SCH (11:09)
[2017-04-24] MEDS: CETIRIZINE 10 MG TABLET PO SCH (12:22)
[2017-04-24] MEDS: TAMSULOSIN HCL 0.4 MG CAP.SR.24H PO SCH (18:29)
[2017-04-24] MEDS: NITROGLYCERIN 5 MG (0.2 MG/HR) PATCH.TD24 TD SCH (18:29)
[2017-04-24 20:24] LABS: ANION GAP 8 (5-19); BLOOD UREA NITROGEN 41 mg/dL (7-20); CALCIUM 8.6 mg/dL (8.4-10.2); CARBON DIOXIDE 23 mmol/L (22-30); CHLORIDE 114 mmol/L (98-107); GLUCOSE 145 mg/dL (75-110); SODIUM 144.6 mmol/L (137-145)
[2017-04-24] MEDS: POTASSIUM CHLORIDE 10 MEQ TABLET.SA PO SCH (23:40)
[2017-04-24] MEDS: SACUBITRIL/VALSARTAN 49 MG/51 MG TABLET PO SCH (23:42)
[2017-04-25] MEDS: CARVEDILOL 12.5 MG TABLET PO SCH ×4 (00:03→22:19)
[2017-04-25] MEDS: HEPARIN SOD (PORCINE) 5,000 UNIT/ML 1 ML SYRINGE SUBCUT SCH ×2 (00:52→06:26)
[2017-04-25 05:53] LABS: ABSOLUTE BASOPHILS # (AUTO) 0.1 10^3/uL (0.0-0.2); ABSOLUTE EOSINOPHILS # (AUTO) 0.4 10^3/uL (0.0-0.6); ABSOLUTE LYMPHOCYTES (AUTO) 1.2 10^3/uL (0.5-4.7); ABSOLUTE MONOCYTES (AUTO) 0.5 10^3/uL (0.1-1.4); ABSOLUTE NEUT (AUTO) 3.8 10^3/uL (1.7-8.2); BASOPHILS % (AUTO) 1.1 % (0-2); EOSINOPHILS % (AUTO) 7.2 % (0-6); HEMATOCRIT 23.2 % (37.9-51.0); LYMPHOCYTES % (AUTO) 19.9 % (13-45); MEAN CORPUSCULAR HEMOGLOBIN 28.6 pg (27.0-33.4); MEAN CORPUSCULAR VOLUME 84 fl (80-97); MONOCYTES % (AUTO) 8.7 % (3-13); PLATELET COUNT 199 10^3/uL (150-450); RED BLOOD COUNT 2.75 10^6/uL (4.35-5.55); RED CELL DISTRIBUTION WIDTH 16.5 % (11.5-14.0); SEGMENTED NEUTROPHILS % (AUTO) 63.1 % (42-78); TOTAL CELLS COUNTED % (AUTO) 100 %; WHITE BLOOD COUNT 6.1 10^3/uL (4.0-10.5)
[2017-04-25 06:03] LABS: ANION GAP 8 (5-19); BLOOD UREA NITROGEN 41 mg/dL (7-20); CALCIUM 8.4 mg/dL (8.4-10.2); CARBON DIOXIDE 23 mmol/L (22-30); CHLORIDE 116 mmol/L (98-107); GLUCOSE 126 mg/dL (75-110); POTASSIUM 3.4 mmol/L (3.6-5.0); SODIUM 147.2 mmol/L (137-145)
[2017-04-25 06:07] LABS: HEMOGLOBIN 7.9 g/dL (13.5-17.0)
[2017-04-25] MEDS: AMLODIPINE BESYLATE 10 MG TABLET PO SCH (12:50)
[2017-04-25] MEDS: ASPIRIN 81 MG TABLET, CHEWABLE PO SCH (12:52)
[2017-04-25] MEDS: DOCUSATE SODIUM 100 MG CAPSULE PO SCH ×2 (12:52→20:00)
[2017-04-25] MEDS: FUROSEMIDE INJ/PF 40 MG/4 ML SDV IV SCH ×2 (12:53→22:19)
[2017-04-25] MEDS: IRON POLYSACCHARIDES COMPLEX 150 MG CAPSULE PO SCH (12:54)
[2017-04-25] MEDS: CILOSTAZOL 100 MG TABLET PO SCH ×2 (12:55→20:01)
[2017-04-25] MEDS: SACUBITRIL/VALSARTAN 49 MG/51 MG TABLET PO SCH ×2 (12:55→22:19)
[2017-04-25] MEDS: POLYETHYLENE GLYCOL 3350 POWDER 17 GM/1 PACKET PO SCH (12:58)
[2017-04-25] MEDS: CETIRIZINE 10 MG TABLET PO SCH (13:00)
[2017-04-25] MEDS: INSULIN LISPRO 100 UNIT/ML 3 ML VIAL SUBCUT PRN ×2 (13:20→23:43)
--- NOTE | 2017-04-25 14:43 | PDOC PROGRESS REPORT ---
Subjective Progress Note for:: 04/25/17 Subjective:: Patient denies any complaints. Reports his breathing is doing much better. Reason For Visit: ACUTE EXACERBATOIN CHF,AFR ON CKD, ANEMIA, Physical Exam Vital Signs: Temp Pulse Resp BP Pulse Ox 98.2 F 60 30 H 144/71 H 94 04/25/17 11:52 04/25/17 11:52 04/25/17 12:57 04/25/17 11:52 04/25/17 11:52 General appearance: PRESENT: no acute distress Eye exam: PRESENT: conjunctiva pink. ABSENT: scleral icterus Mouth exam: PRESENT: moist, tongue midline Neck exam: ABSENT: JVD Respiratory exam: PRESENT: clear to auscultation nathan. ABSENT: rales, rhonchi, wheezes Cardiovascular exam: PRESENT: RRR. ABSENT: diastolic murmur, rubs, systolic murmur GI/Abdominal exam: PRESENT: normal bowel sounds, soft. ABSENT: distended, guarding, mass, organolmegaly, rebound, tenderness Extremities exam: ABSENT: calf tenderness, clubbing, pedal edema Neurological exam: PRESENT: alert, awake, oriented to person, oriented to place , oriented to time, oriented to situation, CN II-XII grossly intact, motor sensory deficit Psychiatric exam: PRESENT: appropriate affect Skin exam: PRESENT: dry, intact, warm. ABSENT: cyanosis, rash Results Impressions: Chest X-Ray 04/23/17 16:34 IMPRESSION: Bibasilar densities as noted above. Assessment & Plan - Diagnosis (1) Congestive heart failure Qualifiers: Congestive heart failure type: unspecified congestive heart failure type Congestive heart failure chronicity: acute on chronic Qualified Code(s): I50.9 - Heart failure, unspecified Is this a current diagnosis for this admission?: Yes Plan: Continue with IV Lasix (2) Acute renal failure Qualifiers: Acute renal failure type: unspecified Qualified Code(s): N17.9 - Acute kidney failure, unspecified Is this a current diagnosis for this admission?: Yes Plan: We will follow creatinine closely as we diurese the patient (3) Anemia Is this a current diagnosis for this admission?: Yes Plan: The patient's hemoglobin has dropped overnight. No evidence for active bleeding. If the patient has any further drop in hemoglobin we will transfuse. Heparin has been stopped. (4) HTN (hypertension) Qualifiers: Hypertension type: essential hypertension Qualified Code(s): I10 - Essential (primary) hypertension Is this a current diagnosis for this admission?: Yes Plan: Continue Coreg (5) GERD (gastroesophageal reflux disease) Qualifiers: Esophagitis presence: esophagitis presence not specified Qualified Code(s) : K21.9 - Gastro-esophageal reflux disease without esophagitis Is this a current diagnosis for this admission?: Yes (6) Hyperlipidemia Qualifiers: Hyperlipidemia type: unspecified Qualified Code(s): E78.5 - Hyperlipidemia , unspecified Is this a current diagnosis for this admission?: Yes (7) Peripheral neuropathy Qualifiers: Is this a current diagnosis for this admission?: Yes (8) Rhabdomyolysis Qualifiers: Rhabdomyolysis type: non-traumatic Qualified Code(s): M62.82 - Rhabdomyolysis Is this a current diagnosis for this admission?: Yes Plan: Improving. (9) Tobacco abuse Is this a current diagnosis for this admission?: Yes - Time Time Spent with patient: 25-34 minutes - Inpatient Certification Medical Necessity: Need Close Monitoring Due to Risk of Patient Decompensation
[2017-04-25] MEDS: TAMSULOSIN HCL 0.4 MG CAP.SR.24H PO SCH (20:00)
[2017-04-25] MEDS: NITROGLYCERIN 5 MG (0.2 MG/HR) PATCH.TD24 TD SCH (20:03)
[2017-04-25 20:25] LABS: ANION GAP 11 (5-19); BLOOD UREA NITROGEN 43 mg/dL (7-20); CALCIUM 9.4 mg/dL (8.4-10.2); CARBON DIOXIDE 24 mmol/L (22-30); CHLORIDE 114 mmol/L (98-107); GLUCOSE 106 mg/dL (75-110); POTASSIUM 4.3 mmol/L (3.6-5.0)
[2017-04-25] MEDS: POTASSIUM CHLORIDE 10 MEQ TABLET.SA PO SCH (22:19)
[2017-04-26 07:13] LABS: ABSOLUTE BASOPHILS # (AUTO) 0.1 10^3/uL (0.0-0.2); ABSOLUTE EOSINOPHILS # (AUTO) 0.6 10^3/uL (0.0-0.6); ABSOLUTE LYMPHOCYTES (AUTO) 1.2 10^3/uL (0.5-4.7); ABSOLUTE MONOCYTES (AUTO) 0.5 10^3/uL (0.1-1.4); ABSOLUTE NEUT (AUTO) 4.8 10^3/uL (1.7-8.2); BASOPHILS % (AUTO) 1.2 % (0-2); HEMATOCRIT 25.1 % (37.9-51.0); HEMOGLOBIN 8.5 g/dL (13.5-17.0); LYMPHOCYTES % (AUTO) 16.1 % (13-45); MEAN CORPUSCULAR HEMOGLOBIN 28.3 pg (27.0-33.4); MEAN CORPUSCULAR HGB CONC 33.9 g/dL (32.0-36.0); MEAN CORPUSCULAR VOLUME 83 fl (80-97); MONOCYTES % (AUTO) 7.4 % (3-13); PLATELET COUNT 205 10^3/uL (150-450); RED BLOOD COUNT 3.01 10^6/uL (4.35-5.55); RED CELL DISTRIBUTION WIDTH 16.8 % (11.5-14.0); SEGMENTED NEUTROPHILS % (AUTO) 67.3 % (42-78); TOTAL CELLS COUNTED % (AUTO) 100 %; WHITE BLOOD COUNT 7.2 10^3/uL (4.0-10.5)
[2017-04-26 07:34] LABS: ANION GAP 7 (5-19); BLOOD UREA NITROGEN 45 mg/dL (7-20); CALCIUM 8.9 mg/dL (8.4-10.2); CARBON DIOXIDE 23 mmol/L (22-30); CHLORIDE 115 mmol/L (98-107); GLUCOSE 101 mg/dL (75-110); POTASSIUM 4.1 mmol/L (3.6-5.0); SODIUM 145.4 mmol/L (137-145)
[2017-04-26] MEDS: SACUBITRIL/VALSARTAN 49 MG/51 MG TABLET PO SCH ×2 (12:01→21:11)
[2017-04-26] MEDS: IRON POLYSACCHARIDES COMPLEX 150 MG CAPSULE PO SCH (12:03)
[2017-04-26] MEDS: CETIRIZINE 10 MG TABLET PO SCH (12:04)
[2017-04-26] MEDS: ASPIRIN 81 MG TABLET, CHEWABLE PO SCH (12:04)
[2017-04-26] MEDS: CILOSTAZOL 100 MG TABLET PO SCH ×2 (12:04→17:24)
[2017-04-26] MEDS: AMLODIPINE BESYLATE 10 MG TABLET PO SCH (12:05)
[2017-04-26] MEDS: DOCUSATE SODIUM 100 MG CAPSULE PO SCH ×2 (12:05→17:24)
[2017-04-26] MEDS: CARVEDILOL 12.5 MG TABLET PO SCH ×2 (12:06→21:10)
[2017-04-26] MEDS: FUROSEMIDE INJ/PF 40 MG/4 ML SDV IV SCH ×2 (12:06→21:11)
[2017-04-26] MEDS: POLYETHYLENE GLYCOL 3350 POWDER 17 GM/1 PACKET PO SCH (12:07)
--- NOTE | 2017-04-26 13:02 | PDOC PROGRESS REPORT ---
Subjective Progress Note for:: 04/26/17 Subjective:: Denies any shortness of breath Reason For Visit: ACUTE EXACERBATOIN CHF,AFR ON CKD, ANEMIA, Physical Exam Vital Signs: Temp Pulse Resp BP Pulse Ox 97.8 F 63 17 140/70 H 90 L 04/26/17 08:00 04/26/17 08:00 04/26/17 08:59 04/26/17 08:00 04/26/17 08:59 Intake & Output 04/25/17 04/26/17 04/27/17 06:59 06:59 06:59 Intake Total 210 218 Output Total 100 650 Balance 110 -432 Weight 109.9 kg General appearance: PRESENT: no acute distress Eye exam: PRESENT: conjunctiva pink. ABSENT: scleral icterus Mouth exam: PRESENT: moist, tongue midline Neck exam: ABSENT: JVD Respiratory exam: PRESENT: clear to auscultation nathan. ABSENT: rales, rhonchi, wheezes Cardiovascular exam: PRESENT: RRR. ABSENT: diastolic murmur, rubs, systolic murmur GI/Abdominal exam: PRESENT: normal bowel sounds, soft. ABSENT: distended, guarding, mass, organolmegaly, rebound, tenderness Extremities exam: ABSENT: calf tenderness, clubbing, pedal edema Neurological exam: PRESENT: alert, awake, oriented to person, oriented to place , oriented to time, oriented to situation, motor sensory deficit Psychiatric exam: PRESENT: appropriate affect Skin exam: PRESENT: dry, intact, warm. ABSENT: cyanosis, rash Results Laboratory Results: 04/26/17 06:27 04/26/17 06:27 04/25/17 04/26/17 04/26/17 19:50 06:27 06:27 WBC 7.2 RBC 3.01 L Hgb 8.5 L Hct 25.1 L MCV 83 MCH 28.3 MCHC 33.9 RDW 16.8 H Plt Count 205 Seg Neutrophils % 67.3 Lymphocytes % 16.1 Monocytes % 7.4 Eosinophils % 8.0 H Basophils % 1.2 Absolute Neutrophils 4.8 Absolute Lymphocytes 1.2 Absolute Monocytes 0.5 Absolute Eosinophils 0.6 Absolute Basophils 0.1 Sodium 149.0 H 145.4 H Potassium 4.3 4.1 Chloride 114 H 115 H Carbon Dioxide 24 23 Anion Gap 11 7 BUN 43 H 45 H Creatinine 2.09 H 2.10 H Est GFR ( Amer) 39 L 39 L Est GFR (Non-Af Amer) 32 L 32 L Glucose 106 101 Calcium 9.4 8.9 Impressions: Chest X-Ray 04/23/17 16:34 IMPRESSION: Bibasilar densities as noted above. Assessment & Plan - Diagnosis (1) Congestive heart failure Qualifiers: Congestive heart failure type: unspecified congestive heart failure type Congestive heart failure chronicity: acute on chronic Qualified Code(s): I50.9 - Heart failure, unspecified Is this a current diagnosis for this admission?: Yes Plan: Continue with IV Lasix (2) Acute renal failure Qualifiers: Acute renal failure type: unspecified Qualified Code(s): N17.9 - Acute kidney failure, unspecified Is this a current diagnosis for this admission?: Yes Plan: We will follow creatinine closely as we diurese the patient (3) Anemia Is this a current diagnosis for this admission?: Yes Plan: The patient's hemoglobin has improved overnight. No evidence for active bleeding. Heparin has been stopped. (4) HTN (hypertension) Qualifiers: Hypertension type: essential hypertension Qualified Code(s): I10 - Essential (primary) hypertension Is this a current diagnosis for this admission?: Yes Plan: Continue Coreg (5) GERD (gastroesophageal reflux disease) Qualifiers: Esophagitis presence: esophagitis presence not specified Qualified Code(s) : K21.9 - Gastro-esophageal reflux disease without esophagitis Is this a current diagnosis for this admission?: Yes (6) Hyperlipidemia Qualifiers: Hyperlipidemia type: unspecified Qualified Code(s): E78.5 - Hyperlipidemia , unspecified Is this a current diagnosis for this admission?: Yes (7) Peripheral neuropathy Qualifiers: Is this a current diagnosis for this admission?: Yes (8) Rhabdomyolysis Qualifiers: Rhabdomyolysis type: non-traumatic Qualified Code(s): M62.82 - Rhabdomyolysis Is this a current diagnosis for this admission?: Yes Plan: Improving. (9) Tobacco abuse Is this a current diagnosis for this admission?: Yes - Time Time Spent with patient: 25-34 minutes - Inpatient Certification Medical Necessity: Need Close Monitoring Due to Risk of Patient Decompensation
[2017-04-26] MEDS: NITROGLYCERIN 5 MG (0.2 MG/HR) PATCH.TD24 TD SCH (17:24)
[2017-04-26] MEDS: TAMSULOSIN HCL 0.4 MG CAP.SR.24H PO SCH (17:24)
[2017-04-26 20:51] LABS: ANION GAP 11 (5-19); BLOOD UREA NITROGEN 46 mg/dL (7-20); CALCIUM 9.4 mg/dL (8.4-10.2); CARBON DIOXIDE 24 mmol/L (22-30); CHLORIDE 112 mmol/L (98-107); GLUCOSE 176 mg/dL (75-110); POTASSIUM 4.4 mmol/L (3.6-5.0); SODIUM 146.7 mmol/L (137-145)
[2017-04-26] MEDS: POTASSIUM CHLORIDE 10 MEQ TABLET.SA PO SCH (21:10)
[2017-04-26] MEDS: INSULIN LISPRO 100 UNIT/ML 3 ML VIAL SUBCUT PRN (22:22)
[2017-04-27 05:44] LABS: ABSOLUTE BASOPHILS # (AUTO) 0.1 10^3/uL (0.0-0.2); ABSOLUTE EOSINOPHILS # (AUTO) 0.6 10^3/uL (0.0-0.6); ABSOLUTE LYMPHOCYTES (AUTO) 0.9 10^3/uL (0.5-4.7); ABSOLUTE MONOCYTES (AUTO) 0.5 10^3/uL (0.1-1.4); ABSOLUTE NEUT (AUTO) 4.8 10^3/uL (1.7-8.2); EOSINOPHILS % (AUTO) 8.2 % (0-6); HEMATOCRIT 24.9 % (37.9-51.0); HEMOGLOBIN 8.3 g/dL (13.5-17.0); LYMPHOCYTES % (AUTO) 13.8 % (13-45); MEAN CORPUSCULAR HEMOGLOBIN 28.1 pg (27.0-33.4); MEAN CORPUSCULAR HGB CONC 33.2 g/dL (32.0-36.0); MEAN CORPUSCULAR VOLUME 85 fl (80-97); MONOCYTES % (AUTO) 7.7 % (3-13); PLATELET COUNT 202 10^3/uL (150-450); RED BLOOD COUNT 2.94 10^6/uL (4.35-5.55); RED CELL DISTRIBUTION WIDTH 16.9 % (11.5-14.0); SEGMENTED NEUTROPHILS % (AUTO) 69.3 % (42-78); TOTAL CELLS COUNTED % (AUTO) 100 %; WHITE BLOOD COUNT 6.9 10^3/uL (4.0-10.5)
[2017-04-27 06:19] LABS: ANION GAP 8 (5-19); BLOOD UREA NITROGEN 46 mg/dL (7-20); CALCIUM 9.3 mg/dL (8.4-10.2); CARBON DIOXIDE 24 mmol/L (22-30); CHLORIDE 116 mmol/L (98-107); GLUCOSE 145 mg/dL (75-110); POTASSIUM 4.2 mmol/L (3.6-5.0); SODIUM 147.7 mmol/L (137-145)
[2017-04-27] MEDS ORDERED: COLLAGENASE CLOSTRIDIUM HIST. OINT 30 GM EXT SCH (10:00)
[2017-04-27] MEDS ORDERED: SODIUM CHLORIDE NASAL SPRAY 44 ML NASL PRN (10:16)
[2017-04-27] MEDS: CARVEDILOL 12.5 MG TABLET PO SCH ×2 (10:41→22:20)
[2017-04-27] MEDS: AMLODIPINE BESYLATE 10 MG TABLET PO SCH (10:43)
[2017-04-27] MEDS: ASPIRIN 81 MG TABLET, CHEWABLE PO SCH (10:43)
[2017-04-27] MEDS: FUROSEMIDE INJ/PF 40 MG/4 ML SDV IV SCH ×2 (10:44→22:21)
[2017-04-27] MEDS: POLYETHYLENE GLYCOL 3350 POWDER 17 GM/1 PACKET PO SCH (10:44)
[2017-04-27] MEDS: CETIRIZINE 10 MG TABLET PO SCH (10:49)
[2017-04-27] MEDS: CILOSTAZOL 100 MG TABLET PO SCH ×2 (10:49→17:33)
[2017-04-27] MEDS: IRON POLYSACCHARIDES COMPLEX 150 MG CAPSULE PO SCH (10:50)
[2017-04-27] MEDS: DOCUSATE SODIUM 100 MG CAPSULE PO SCH ×2 (10:51→17:33)
[2017-04-27] MEDS: SACUBITRIL/VALSARTAN 49 MG/51 MG TABLET PO SCH ×2 (10:51→22:21)
[2017-04-27] MEDS ORDERED: CLONIDINE HCL 0.1 MG TABLET PO SCH (11:00)
[2017-04-27] MEDS: INSULIN LISPRO 100 UNIT/ML 3 ML VIAL SUBCUT PRN (12:04)
[2017-04-27] MEDS ORDERED: CLONIDINE HCL 0.1 MG TABLET ONE (17:30)
[2017-04-27] MEDS: TAMSULOSIN HCL 0.4 MG CAP.SR.24H PO SCH (17:33)
[2017-04-27] MEDS: NITROGLYCERIN 5 MG (0.2 MG/HR) PATCH.TD24 TD SCH (17:34)
[2017-04-27] MEDS ORDERED: ALBUTEROL SULFATE 0.083% NEB 2.5 MG/3 ML AMPUL NEB ONE (17:40)
[2017-04-27] MEDS: POTASSIUM CHLORIDE 10 MEQ TABLET.SA PO SCH (22:21)
[2017-04-27] MEDS ORDERED: CLONIDINE HCL 0.1 MG TABLET PO ONE (22:45)
[2017-04-28 04:20] LABS: ABSOLUTE BASOPHILS # (AUTO) 0.1 10^3/uL (0.0-0.2); ABSOLUTE EOSINOPHILS # (AUTO) 0.6 10^3/uL (0.0-0.6); ABSOLUTE LYMPHOCYTES (AUTO) 0.9 10^3/uL (0.5-4.7); ABSOLUTE MONOCYTES (AUTO) 0.5 10^3/uL (0.1-1.4); ABSOLUTE NEUT (AUTO) 4.7 10^3/uL (1.7-8.2); BASOPHILS % (AUTO) 0.8 % (0-2); EOSINOPHILS % (AUTO) 8.2 % (0-6); HEMATOCRIT 22.6 % (37.9-51.0); LYMPHOCYTES % (AUTO) 13.9 % (13-45); MEAN CORPUSCULAR HEMOGLOBIN 28.8 pg (27.0-33.4); MEAN CORPUSCULAR HGB CONC 34.3 g/dL (32.0-36.0); MEAN CORPUSCULAR VOLUME 84 fl (80-97); PLATELET COUNT 193 10^3/uL (150-450); RED BLOOD COUNT 2.68 10^6/uL (4.35-5.55); RED CELL DISTRIBUTION WIDTH 16.8 % (11.5-14.0); SEGMENTED NEUTROPHILS % (AUTO) 70.1 % (42-78); TOTAL CELLS COUNTED % (AUTO) 100 %; WHITE BLOOD COUNT 6.7 10^3/uL (4.0-10.5)
[2017-04-28 04:21] LABS: HEMOGLOBIN 7.7 g/dL (13.5-17.0)
[2017-04-28] MEDS: CLONIDINE HCL 0.1 MG TABLET PO SCH ×3 (05:25→21:33)
[2017-04-28] MEDS ORDERED: MAG HYDROX/AL HYDROX/SIMETH SUSP 30 ML UDCUP PO PRN (08:00)
[2017-04-28] MEDS: LORATADINE 10 MG TABLET PO SCH (09:44)
[2017-04-28] MEDS: CARVEDILOL 12.5 MG TABLET PO SCH ×2 (09:44→21:33)
[2017-04-28] MEDS: ASPIRIN 81 MG TABLET, CHEWABLE PO SCH (09:44)
[2017-04-28] MEDS: CILOSTAZOL 100 MG TABLET PO SCH ×2 (09:44→18:19)
[2017-04-28] MEDS: AMLODIPINE BESYLATE 10 MG TABLET PO SCH (09:45)
[2017-04-28] MEDS: DOCUSATE SODIUM 100 MG CAPSULE PO SCH ×2 (09:45→18:18)
[2017-04-28] MEDS: POLYETHYLENE GLYCOL 3350 POWDER 17 GM/1 PACKET PO SCH (09:45)
[2017-04-28] MEDS: SACUBITRIL/VALSARTAN 49 MG/51 MG TABLET PO SCH ×2 (09:45→21:34)
[2017-04-28] MEDS: IRON POLYSACCHARIDES COMPLEX 150 MG CAPSULE PO SCH (10:20)
[2017-04-28] MEDS: FUROSEMIDE INJ/PF 40 MG/4 ML SDV IV SCH (10:20)
[2017-04-28 11:36] LABS: BLOOD UREA NITROGEN 46 mg/dL (7-20); CALCIUM 8.7 mg/dL (8.4-10.2); GLUCOSE 153 mg/dL (75-110)
[2017-04-28 11:38] LABS: ANION GAP 7 (5-19); CARBON DIOXIDE 25 mmol/L (22-30); CHLORIDE 112 mmol/L (98-107); POTASSIUM 4.3 mmol/L (3.6-5.0); SODIUM 144.3 mmol/L (137-145)
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
[2017-04-28] MEDS: INSULIN LISPRO 100 UNIT/ML 3 ML VIAL SUBCUT PRN (13:33)
[2017-04-28] MEDS: TAMSULOSIN HCL 0.4 MG CAP.SR.24H PO SCH (18:18)
[2017-04-28] MEDS: FUROSEMIDE 40 MG TABLET PO SCH (18:19)
[2017-04-28] MEDS: NITROGLYCERIN 5 MG (0.2 MG/HR) PATCH.TD24 TD SCH (18:21)
[2017-04-28 20:35] LABS: ANION GAP 8 (5-19); BLOOD UREA NITROGEN 48 mg/dL (7-20); CALCIUM 9.1 mg/dL (8.4-10.2); CARBON DIOXIDE 23 mmol/L (22-30); CHLORIDE 112 mmol/L (98-107); GLUCOSE 139 mg/dL (75-110); POTASSIUM 4.7 mmol/L (3.6-5.0); SODIUM 143.1 mmol/L (137-145)
[2017-04-28] MEDS: POTASSIUM CHLORIDE 10 MEQ TABLET.SA PO SCH (21:33)
[2017-04-29 05:25] LABS: ABSOLUTE EOSINOPHILS # (AUTO) 0.5 10^3/uL (0.0-0.6); ABSOLUTE MONOCYTES (AUTO) 0.5 10^3/uL (0.1-1.4); ABSOLUTE NEUT (AUTO) 4.4 10^3/uL (1.7-8.2); BASOPHILS % (AUTO) 0.7 % (0-2); EOSINOPHILS % (AUTO) 7.3 % (0-6); HEMATOCRIT 22.4 % (37.9-51.0); MEAN CORPUSCULAR HEMOGLOBIN 28.3 pg (27.0-33.4); MEAN CORPUSCULAR HGB CONC 33.3 g/dL (32.0-36.0); MEAN CORPUSCULAR VOLUME 85 fl (80-97); MONOCYTES % (AUTO) 8.2 % (3-13); PLATELET COUNT 187 10^3/uL (150-450); RED BLOOD COUNT 2.63 10^6/uL (4.35-5.55); RED CELL DISTRIBUTION WIDTH 16.7 % (11.5-14.0); SEGMENTED NEUTROPHILS % (AUTO) 67.8 % (42-78); TOTAL CELLS COUNTED % (AUTO) 100 %; WHITE BLOOD COUNT 6.4 10^3/uL (4.0-10.5)
[2017-04-29 05:43] LABS: ANION GAP 9 (5-19); BLOOD UREA NITROGEN 48 mg/dL (7-20); CALCIUM 8.6 mg/dL (8.4-10.2); CARBON DIOXIDE 22 mmol/L (22-30); CHLORIDE 112 mmol/L (98-107); GLUCOSE 123 mg/dL (75-110); HEMOGLOBIN 7.4 g/dL (13.5-17.0); POTASSIUM 4.5 mmol/L (3.6-5.0); SODIUM 143.4 mmol/L (137-145)
[2017-04-29] MEDS: CLONIDINE HCL 0.1 MG TABLET PO SCH ×3 (06:44→22:09)
[2017-04-29] MEDS: DOCUSATE SODIUM 100 MG CAPSULE PO SCH ×2 (10:41→18:00)
[2017-04-29] MEDS: LORATADINE 10 MG TABLET PO SCH (10:42)
[2017-04-29] MEDS: FUROSEMIDE 40 MG TABLET PO SCH ×2 (10:42→18:00)
[2017-04-29] MEDS: CARVEDILOL 12.5 MG TABLET PO SCH ×2 (10:42→22:09)
[2017-04-29] MEDS: AMLODIPINE BESYLATE 10 MG TABLET PO SCH (10:42)
[2017-04-29] MEDS: SACUBITRIL/VALSARTAN 49 MG/51 MG TABLET PO SCH ×2 (10:43→22:09)
[2017-04-29] MEDS: CILOSTAZOL 100 MG TABLET PO SCH ×2 (10:43→18:00)
[2017-04-29] MEDS: POLYETHYLENE GLYCOL 3350 POWDER 17 GM/1 PACKET PO SCH (10:43)
[2017-04-29] MEDS: ASPIRIN 81 MG TABLET, CHEWABLE PO SCH (10:43)
[2017-04-29] MEDS: IRON POLYSACCHARIDES COMPLEX 150 MG CAPSULE PO SCH (10:43)
[2017-04-29] MEDS ORDERED: BISACODYL 10 MG SUPP.RECT PR ONE (17:00)
[2017-04-29] MEDS: TAMSULOSIN HCL 0.4 MG CAP.SR.24H PO SCH (18:00)
[2017-04-29] MEDS: NITROGLYCERIN 5 MG (0.2 MG/HR) PATCH.TD24 TD SCH (18:01)
--- NOTE | 2017-04-29 18:31 | PDOC PROGRESS REPORT ---
Subjective Reason For Visit: ACUTE EXACERBATOIN CHF,AFR ON CKD, ANEMIA, Physical Exam Vital Signs: Temp Pulse Resp BP Pulse Ox 98.1 F 58 L 22 H 127/63 H 98 04/29/17 16:00 04/29/17 16:00 04/29/17 16:00 04/29/17 16:00 04/29/17 16:00 Intake & Output 04/28/17 04/29/17 04/30/17 06:59 06:59 06:59 Intake Total 1013 1387 200 Output Total 775 1000 530 Balance 238 387 -330 Weight 106.9 kg 110.4 kg General appearance: PRESENT: no acute distress, other - resting in bed Head exam: PRESENT: atraumatic, normocephalic Mouth exam: PRESENT: moist Respiratory exam: PRESENT: decreased breath sounds, unlabored Cardiovascular exam: PRESENT: RRR GI/Abdominal exam: PRESENT: distended, firm. ABSENT: tenderness Neurological exam: PRESENT: alert, altered Psychiatric exam: PRESENT: appropriate affect Results Laboratory Results: 04/29/17 04:43 04/29/17 04:43 04/28/17 04/29/17 04/29/17 20:00 04:43 04:43 WBC 6.4 RBC 2.63 L Hgb 7.4 L Hct 22.4 L MCV 85 MCH 28.3 MCHC 33.3 RDW 16.7 H Plt Count 187 Seg Neutrophils % 67.8 Lymphocytes % 16.0 Monocytes % 8.2 Eosinophils % 7.3 H Basophils % 0.7 Absolute Neutrophils 4.4 Absolute Lymphocytes 1.0 Absolute Monocytes 0.5 Absolute Eosinophils 0.5 Absolute Basophils 0.0 Sodium 143.1 143.4 Potassium 4.7 4.5 Chloride 112 H 112 H Carbon Dioxide 23 22 Anion Gap 8 9 BUN 48 H 48 H Creatinine 2.10 H 2.21 H Est GFR ( Amer) 39 L 36 L Est GFR (Non-Af Amer) 32 L 30 L Glucose 139 H 123 H Calcium 9.1 8.6 Impressions: Chest X-Ray 04/23/17 16:34 IMPRESSION: Bibasilar densities as noted above. Assessment & Plan - Diagnosis (1) Anemia Qualifiers: Anemia type: due to chronic kidney disease Chronic kidney disease stage: stage 3 (moderate) Qualified Code(s): N18.3 - Chronic kidney disease, stage 3 (moderate); D63.1 - Anemia in chronic kidney disease; D63.1 - Anemia in chronic kidney disease Is this a current diagnosis for this admission?: Yes Plan: Baseline Hg 8-9 - Currently 7.4 on 04/29/17 - Denies bleeding - Previously on EPO for CKD - Will continue to monitor, transfusion goal Hg<7 (2) Congestive heart failure Qualifiers: Congestive heart failure type: diastolic Congestive heart failure chronicity: acute on chronic Qualified Code(s): I50.33 - Acute on chronic diastolic (congestive) heart failure Is this a current diagnosis for this admission?: Yes Plan: TTE from 12/2016: preserved EF, moderative pulmonary hypertension . (3) Bilateral diabetic foot ulcer associated with type 1 diabetes mellitus Plan: Blood sugars well controlled. (4) Chronic kidney disease Qualifiers: Chronic kidney disease stage: stage 3 (moderate) Qualified Code(s): N18.3 - Chronic kidney disease, stage 3 (moderate) Plan: Cr stable (5) Constipation Qualifiers: Constipation type: unspecified constipation type Qualified Code(s): K59.00 - Constipation, unspecified Is this a current diagnosis for this admission?: Yes Plan: Has not had bowel movement in 8 days per patient - Has been on Miralax and Colace - Ordered Dulcolex suppository - Was having BM while in room with patient this afternoon - Will add enema to regimen if no improvement in symptoms.
[2017-04-29 20:53] LABS: ANION GAP 9 (5-19); BLOOD UREA NITROGEN 47 mg/dL (7-20); CALCIUM 9.3 mg/dL (8.4-10.2); CARBON DIOXIDE 24 mmol/L (22-30); CHLORIDE 108 mmol/L (98-107); GLUCOSE 166 mg/dL (75-110); POTASSIUM 4.8 mmol/L (3.6-5.0); SODIUM 141.4 mmol/L (137-145)
[2017-04-29] MEDS: POTASSIUM CHLORIDE 10 MEQ TABLET.SA PO SCH (22:09)
[2017-04-30] MEDS: CLONIDINE HCL 0.1 MG TABLET PO SCH ×3 (05:39→22:25)
[2017-04-30 09:18] LABS: HEMATOCRIT 21.4 % (37.9-51.0); MEAN CORPUSCULAR HGB CONC 34.4 g/dL (32.0-36.0); MEAN CORPUSCULAR VOLUME 84 fl (80-97); PLATELET COUNT 180 10^3/uL (150-450); RED BLOOD COUNT 2.54 10^6/uL (4.35-5.55); RED CELL DISTRIBUTION WIDTH 16.7 % (11.5-14.0); WHITE BLOOD COUNT 7.1 10^3/uL (4.0-10.5)
[2017-04-30 09:21] LABS: HEMOGLOBIN 7.4 g/dL (13.5-17.0)
[2017-04-30 09:33] LABS: ANION GAP 10 (5-19); BLOOD UREA NITROGEN 45 mg/dL (7-20); CALCIUM 8.7 mg/dL (8.4-10.2); CARBON DIOXIDE 21 mmol/L (22-30); CHLORIDE 112 mmol/L (98-107); GLUCOSE 136 mg/dL (75-110); POTASSIUM 4.6 mmol/L (3.6-5.0); SODIUM 143.4 mmol/L (137-145)
[2017-04-30] MEDS: DOCUSATE SODIUM 100 MG CAPSULE PO SCH ×2 (12:08→18:14)
[2017-04-30] MEDS: AMLODIPINE BESYLATE 10 MG TABLET PO SCH (12:08)
[2017-04-30] MEDS: ASPIRIN 81 MG TABLET, CHEWABLE PO SCH (12:09)
[2017-04-30] MEDS: LORATADINE 10 MG TABLET PO SCH (12:09)
[2017-04-30] MEDS: CARVEDILOL 12.5 MG TABLET PO SCH ×2 (12:09→22:25)
[2017-04-30] MEDS: FUROSEMIDE 40 MG TABLET PO SCH ×2 (12:10→18:13)
[2017-04-30] MEDS: POLYETHYLENE GLYCOL 3350 POWDER 17 GM/1 PACKET PO SCH (12:11)
[2017-04-30] MEDS: SACUBITRIL/VALSARTAN 49 MG/51 MG TABLET PO SCH ×2 (12:12→22:25)
[2017-04-30] MEDS: CILOSTAZOL 100 MG TABLET PO SCH ×2 (12:13→18:12)
[2017-04-30] MEDS: IRON POLYSACCHARIDES COMPLEX 150 MG CAPSULE PO SCH (12:13)
--- NOTE | 2017-04-30 15:31 | PDOC PROGRESS REPORT ---
Subjective Progress Note for:: 04/30/17 Subjective:: No overnight issues. Did have large bowel movement per report. Patient refusing to use BiPAP as mask "hurts my face". Denies fevers, chills, CP, SOB, abdominal pain, NV. Reason For Visit: ACUTE EXACERBATOIN CHF,AFR ON CKD, ANEMIA, Physical Exam Vital Signs: Temp Pulse Resp BP Pulse Ox 98.7 F 64 20 119/57 L 100 04/30/17 11:54 04/30/17 11:54 04/30/17 11:54 04/30/17 11:54 04/30/17 11:54 Intake & Output 04/29/17 04/30/17 05/01/17 06:59 06:59 06:59 Intake Total 1387 680 Output Total 1000 1330 Balance 387 -650 Weight 110.4 kg 110.3 kg General appearance: PRESENT: no acute distress, well-developed, well-nourished Head exam: PRESENT: atraumatic, normocephalic Mouth exam: PRESENT: moist Cardiovascular exam: PRESENT: RRR. ABSENT: systolic murmur GI/Abdominal exam: PRESENT: normal bowel sounds, soft. ABSENT: distended, firm , tenderness Neurological exam: PRESENT: alert, awake, other - No focal neuro deficits Psychiatric exam: PRESENT: appropriate affect Results Laboratory Results: 04/30/17 08:58 04/30/17 08:58 04/29/17 04/30/17 04/30/17 20:26 08:58 08:58 WBC 7.1 RBC 2.54 L Hgb 7.4 L Hct 21.4 L MCV 84 MCH 29.0 MCHC 34.4 RDW 16.7 H Plt Count 180 Sodium 141.4 143.4 Potassium 4.8 4.6 Chloride 108 H 112 H Carbon Dioxide 24 21 L Anion Gap 9 10 BUN 47 H 45 H Creatinine 2.20 H 2.17 H Est GFR ( Amer) 37 L 37 L Est GFR (Non-Af Amer) 30 L 31 L Glucose 166 H 136 H Calcium 9.3 8.7 Impressions: Chest X-Ray 04/23/17 16:34 IMPRESSION: Bibasilar densities as noted above. Assessment & Plan - Diagnosis (1) Anemia Qualifiers: Anemia type: due to chronic kidney disease Chronic kidney disease stage: stage 3 (moderate) Qualified Code(s): N18.3 - Chronic kidney disease, stage 3 (moderate); D63.1 - Anemia in chronic kidney disease; D63.1 - Anemia in chronic kidney disease Is this a current diagnosis for this admission?: Yes Plan: Baseline Hg 8-9 - Currently 7.4 on 04/30/17 - Denies bleeding - Previously on EPO for CKD - Will continue to monitor, transfusion goal, Hg>7 (2) Congestive heart failure Qualifiers: Congestive heart failure type: diastolic Congestive heart failure chronicity: acute on chronic Qualified Code(s): I50.33 - Acute on chronic diastolic (congestive) heart failure Is this a current diagnosis for this admission?: Yes (3) Bilateral diabetic foot ulcer associated with type 1 diabetes mellitus Plan: Blood sugars well controlled. (4) Chronic kidney disease Qualifiers: Chronic kidney disease stage: stage 3 (moderate) Qualified Code(s): N18.3 - Chronic kidney disease, stage 3 (moderate) Plan: Cr stable at 2.17 on 04/30 - Good UOP - Receives EPO as outpatient (5) Constipation Qualifiers: Constipation type: unspecified constipation type Qualified Code(s): K59.00 - Constipation, unspecified Is this a current diagnosis for this admission?: Yes Plan: Has not had bowel movement in 8 days per patient, now resolves as of 04/29 - Has been on Miralax and Colace, received Dulcolex suppository on 04/29 - No abdominal symptoms on exam today - Time Disposition: Stable medically, will be discharged to home when possible.
[2017-04-30] MEDS: TAMSULOSIN HCL 0.4 MG CAP.SR.24H PO SCH (18:13)
[2017-04-30] MEDS: NITROGLYCERIN 5 MG (0.2 MG/HR) PATCH.TD24 TD SCH (18:14)
[2017-04-30] MEDS: INSULIN LISPRO 100 UNIT/ML 3 ML VIAL SUBCUT PRN (18:21)
[2017-04-30 21:35] LABS: ANION GAP 12 (5-19); BLOOD UREA NITROGEN 47 mg/dL (7-20); CALCIUM 9.3 mg/dL (8.4-10.2); CARBON DIOXIDE 22 mmol/L (22-30); CHLORIDE 109 mmol/L (98-107); GLUCOSE 184 mg/dL (75-110); POTASSIUM 4.9 mmol/L (3.6-5.0); SODIUM 142.6 mmol/L (137-145)
[2017-04-30] MEDS: POTASSIUM CHLORIDE 10 MEQ TABLET.SA PO SCH (22:25)
[2017-05-01] MEDS: CLONIDINE HCL 0.1 MG TABLET PO SCH ×2 (06:17→14:40)
[2017-05-01 07:18] LABS: MEAN CORPUSCULAR HEMOGLOBIN 28.4 pg (27.0-33.4); MEAN CORPUSCULAR HGB CONC 33.6 g/dL (32.0-36.0); MEAN CORPUSCULAR VOLUME 85 fl (80-97); PLATELET COUNT 193 10^3/uL (150-450); RED CELL DISTRIBUTION WIDTH 16.8 % (11.5-14.0); WHITE BLOOD COUNT 6.9 10^3/uL (4.0-10.5)
[2017-05-01 07:30] LABS: HEMOGLOBIN 7.4 g/dL (13.5-17.0)
[2017-05-01] MEDS: CILOSTAZOL 100 MG TABLET PO SCH ×2 (11:13→18:14)
[2017-05-01] MEDS: SACUBITRIL/VALSARTAN 49 MG/51 MG TABLET PO SCH (11:14)
[2017-05-01] MEDS: AMLODIPINE BESYLATE 10 MG TABLET PO SCH (11:15)
[2017-05-01] MEDS: POLYETHYLENE GLYCOL 3350 POWDER 17 GM/1 PACKET PO SCH (11:15)
[2017-05-01] MEDS: FUROSEMIDE 40 MG TABLET PO SCH ×2 (11:16→18:20)
[2017-05-01] MEDS: DOCUSATE SODIUM 100 MG CAPSULE PO SCH ×2 (11:16→18:14)
[2017-05-01] MEDS: CARVEDILOL 12.5 MG TABLET PO SCH (11:16)
[2017-05-01] MEDS: ASPIRIN 81 MG TABLET, CHEWABLE PO SCH (11:17)
[2017-05-01] MEDS: IRON POLYSACCHARIDES COMPLEX 150 MG CAPSULE PO SCH (11:17)
[2017-05-01] MEDS: LORATADINE 10 MG TABLET PO SCH (11:17)
--- NOTE | 2017-05-01 13:43 | PDOC DISCHARGE SUMMARY ---
General - Admit/Disc Date/PCP Admission Date/Primary Care Provider: 04/25/17 12:58 LEXUS GARCIA MD Discharge Date: 05/01/17 - Discharge Diagnosis (1) Anemia Is this a current diagnosis for this admission?: Yes Summary: Normocytic anemia secondary to CKD Baseline Hg 8-9 - Currently 7.4 on 05/01/17 - Denies bleeding during admission, did not require transfusion - Previously on EPO for CKD, advised to discuss with PCP/public relations representative about restarting (2) Congestive heart failure Is this a current diagnosis for this admission?: Yes (3) Bilateral diabetic foot ulcer associated with type 1 diabetes mellitus Is this a current diagnosis for this admission?: Yes Summary: Blood sugar well controlled, not an active issue at discharge (4) Chronic kidney disease Is this a current diagnosis for this admission?: Yes Summary: Cr stable at admission, Good UOP - Should receive EPO as outpatient - Follow up with Nephrology as outpatient (5) Constipation Is this a current diagnosis for this admission?: Yes Summary: Went 8 days without bowel movement. Increased bowel regimen with good response. Advised to titrate bowels to every 1-2 days (6) TOMMY treated with BiPAP Is this a current diagnosis for this admission?: Yes Summary: Does not have formal diagnosis of TOMMY however likely has sleep apnea - Discussed with patient and sister that should have sleep study as outpatient - May benefit from BiPAP - Discuss with PCP for sleep study referral - Additional Information Resuscitation Status: Full Code Discharge Diet: Cardiac, Diabetic Discharge Activity: Activity As Tolerated, Balance Activity w/Rest Prescriptions: Clonidine HCl [Catapres 0.1 mg Tablet] 0.1 mg PO Q8 30 Days #120 tablet Home Medications: Amlodipine Besylate [Norvasc 10 mg Tablet] 10 mg PO DAILY 04/23/17 Carvedilol [Coreg 25 mg Tablet] 25 mg PO Q12 04/23/17 Cilostazol [Pletal 100 mg Tablet] 50 mg PO BID 04/23/17 Epoetin Agustin [Procrit Inj 20,000 Unit/1 ml Vial (Renal)] 20,000 unit IJ WE@1000 04/23/17 Sacubitril/Valsartan [Entresto 49 mg-51 mg Tablet] 1 each PO BID 04/23/17 Aspirin [Aspirin 81 mg Chewable Tablet] 81 mg PO DAILY 30 Days #0 tab.chew 05/01 Cilostazol [Pletal 100 mg Tablet] 50 mg PO BID tablet 05/01/17 Clonidine HCl [Catapres 0.1 mg Tablet] 0.1 mg PO Q8 30 Days #120 tablet Docusate Sodium [Colace 100 mg Capsule] 100 mg PO BID capsule 05/01/17 Polyethylene Glycol 3350 [Miralax Powder 17 gm/Packet] 17 gm PO DAILY powd.pack 05/01/17 Tamsulosin HCl [Flomax 0.4 mg Cap.sr] 0.4 mg PO QPM cap.sr.24h 05/01/17 History of Present Illness History of Present Illness: FLAG MORELIA THIBODEAUX is a 66 year old male with a past medical history of congestive heart failure, hypertension, diabetes, stage III chronic kidney disease, chronic pain, debility and tobacco dependence. Patient had been at [facility] for the above and released home 04/11, he has subsequently developed shortness of breath and edema prompting evaluation emergency room where he was found to have acute congestive heart failure, uncontrolled hypertension and acute on chronic renal failure. He denies recent change in medications but admits to dietary indiscretion over the holidays and inability to perform daily weights. He receives IV Lasix and referred to the hospitalist for admission. Denying chest pain, nausea, vomiting. Hospital Course Hospital Course: Per above. Physical Exam Vital Signs: Temp Pulse Resp BP Pulse Ox 97.7 F 59 L 18 138/69 H 100 05/01/17 12:00 05/01/17 12:00 05/01/17 12:00 05/01/17 12:00 05/01/17 12:00 Intake & Output 04/30/17 05/01/17 05/02/17 06:59 06:59 06:59 Intake Total 680 360 Output Total 1330 1000 Balance -650 -640 Weight 110.3 kg 110.2 kg General appearance: PRESENT: no acute distress, obese, other - sitting up in bed Mouth exam: PRESENT: moist Neck exam: ABSENT: JVD Respiratory exam: PRESENT: prolonged expiratory phas. ABSENT: unlabored, wheezes Cardiovascular exam: PRESENT: RRR. ABSENT: systolic murmur Vascular exam: ABSENT: pallor GI/Abdominal exam: PRESENT: soft. ABSENT: tenderness Neurological exam: PRESENT: alert, awake - non focal neuro exam Psychiatric exam: PRESENT: appropriate affect Skin exam: PRESENT: other - Chronic venous changes in lower extremities; diabetic foot ulcer noted Results Laboratory Results: 05/01/17 06:22 04/30/17 20:48 04/30/17 05/01/17 20:48 06:22 WBC 6.9 RBC 2.60 L Hgb 7.4 L Hct 22.0 L MCV 85 MCH 28.4 MCHC 33.6 RDW 16.8 H Plt Count 193 Sodium 142.6 Potassium 4.9 Chloride 109 H Carbon Dioxide 22 Anion Gap 12 BUN 47 H Creatinine 2.38 H Est GFR ( Amer) 33 L Est GFR (Non-Af Amer) 28 L Glucose 184 H Calcium 9.3 Impressions: Chest X-Ray 04/23/17 16:34 IMPRESSION: Bibasilar densities as noted above. Qualifiers PATEINT BEING DISCHARGED WITH ANY OF THE FOLLOWING DIAGNOSIS?: Heart Failure VTE patient discharged on overlapping Therapy?: Yes MD Pt discharged ACEI/ARBS?: Yes Plan Time Spent: Greater than 30 Minutes
[2017-05-01 17:44] VITALS: BP 138/69
[2017-05-01] MEDS: NITROGLYCERIN 5 MG (0.2 MG/HR) PATCH.TD24 TD SCH (18:14)
[2017-05-01] MEDS: TAMSULOSIN HCL 0.4 MG CAP.SR.24H PO SCH (18:14)
[2017-05-01] MEDS: INSULIN LISPRO 100 UNIT/ML 3 ML VIAL SUBCUT PRN (18:19)
== END 2017-05-01 18:30 | disposition home health service (06) | DRG 291 ==
LOC: ER 16:20 → INTOOBSV 19:56 → EH 19:56 → 4W 04-24 16:23 → OBSVTOIN 04-25 12:58
PROVIDERS: ADMIT Internal Medicine; ATTEND Internal Medicine
DX: I13.0 Hypertensive heart and chronic kidney disease with heart failure and stage 1 through stage 4 chronic kidney disease, or unspecified chronic kidney disease (principal); I50.33 Acute on chronic diastolic (congestive) heart failure; L97.919 Non-pressure chronic ulcer of unspecified part of right lower leg with unspecified severity; N17.9 Acute kidney failure, unspecified; M62.82 Rhabdomyolysis; E11.22 Type 2 diabetes mellitus with diabetic chronic kidney disease; N18.3 Chronic kidney disease, stage 3 (moderate); D63.1 Anemia in chronic kidney disease; E78.00 Pure hypercholesterolemia, unspecified; E11.42 Type 2 diabetes mellitus with diabetic polyneuropathy; K21.9 Gastro-esophageal reflux disease without esophagitis; I83.019 Varicose veins of right lower extremity with ulcer of unspecified site; K59.00 Constipation, unspecified; F17.210 Nicotine dependence, cigarettes, uncomplicated; Z71.6 Tobacco abuse counseling; Z91.11 Patient's noncompliance with dietary regimen
CPT/HCPCS: 36415; 71045; 80048; 80053; 81001; 82550; 82553; 82607; 82728; 82746; 82962; 83540; 83550; 83880; 84443; 84484; 85025; 85027; 85045; 93005; 93010; 94660; 96374; 99285; G0378; J1644; J1815; J1940; J3490

== ENCOUNTER → 2017-06-25 | Outpatient (CLI) | payer MEDICARE, MEDICAID ==
[2017-06-25 13:17] LABS: HEMATOCRIT 34.4 % (37.9-51.0); HEMOGLOBIN 11.6 g/dL (13.5-17.0); MEAN CORPUSCULAR HEMOGLOBIN 28.5 pg (27.0-33.4); MEAN CORPUSCULAR HGB CONC 33.6 g/dL (32.0-36.0); MEAN CORPUSCULAR VOLUME 85 fl (80-97); PLATELET COUNT 306 10^3/uL (150-450); RED BLOOD COUNT 4.05 10^6/uL (4.35-5.55); RED CELL DISTRIBUTION WIDTH 14.8 % (11.5-14.0)
[2017-06-25 13:41] LABS: ALANINE AMINOTRANSFERASE 20 U/L (21-72); ALBUMIN 3.7 g/dL (3.5-5.0); ALKALINE PHOSPHATASE 97 U/L (38-126); ANION GAP 11 (5-19); ASPARTATE AMINO TRANSFERASE 15 U/L (17-59); BILIRUBIN,DIRECT 0.4 mg/dL (0.0-0.4); BILIRUBIN,TOTAL 0.4 mg/dL (0.2-1.3); BLOOD UREA NITROGEN 33 mg/dL (7-20); CALCIUM 9.4 mg/dL (8.4-10.2); CARBON DIOXIDE 33 mmol/L (22-30); CHLORIDE 100 mmol/L (98-107); GLUCOSE 138 mg/dL (75-110); PHOSPHORUS 4.3 mg/dL (2.5-4.5); SODIUM 143.8 mmol/L (137-145); TOTAL PROTEIN 6.9 g/dL (6.3-8.2)
== END ==
LOC: OD 12:50
PROVIDERS: ATTEND Internal Medicine Nephrology
DX: I12.9 Hypertensive chronic kidney disease with stage 1 through stage 4 chronic kidney disease, or unspecified chronic kidney disease (principal); N18.3 Chronic kidney disease, stage 3 (moderate); I50.9 Heart failure, unspecified; D64.9 Anemia, unspecified
CPT/HCPCS: 36415; 80053; 83970; 84100; 84443; 85027

== ENCOUNTER 2017-07-02 13:22 | Emergency (ER) | payer MEDICARE, MEDICAID ==
--- NOTE | 2017-07-02 14:09 | RADIOLOGY REPORT (SQ) ---
EXAM DESCRIPTION: CT HEAD WITHOUT COMPLETED DATE/TIME: 07/02/2017 1:53 pm REASON FOR STUDY: slurred speech COMPARISON: December 2016 TECHNIQUE: Axial images acquired through the brain without intravenous contrast. Images reviewed wi th bone, brain and subdural windows. Images stored on PACS. All CT scanners at this facility use dose modulation, iterative reconstruction, and/or weight based d osing when appropriate to reduce radiation dose to as low as reasonably achievable (ALARA). [facility]: Dose Right [facility]: CareDose [facility]: Dose Right [facility]: Teradose 4D [facility]: [employer] RADIATION DOSE: CT Rad equipment meets quality standard of care and radiation dose reduction techniq ues were employed. CTDIvol: 64.6 mGy. DLP: 1163 mGy-cm. mGy. LIMITATIONS: None. FINDINGS: VENTRICLES: Prominent. CEREBRUM: No masses. No hemorrhage. No midline shift. Areas of low density in the white matter mos t likely due to chronic micro-vascular ischemic change. 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 No evidence for acute infarction. CEREBELLUM: No masses. No hemorrhage. No alteration of density. No evidence for acute infarction. EXTRAAXIAL SPACES: Mild age-related involutional change. No fluid collections. No masses. ORBITS AND GLOBE: No intra- or extraconal masses. Normal contour of globe without masses. CALVARIUM: No fracture. PARANASAL SINUSES: No fluid or mucosal thickening. SOFT TISSUES: No mass or hematoma. OTHER: No other significant finding. IMPRESSION: MILD CHRONIC CHANGES OF ATROPHY AND MICROVASCULAR ISCHEMIA. 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 NO ACUTE PROCESS. EVIDENCE OF ACUTE STROKE: NO. TECHNICAL DOCUMENTATION: JOB ID: [id number] Quality ID # [id number]: Final reports with documentation of one or more dose reduction techniques (e.g., Au tomated exposure control, adjustment of the mA and/or kV according to patient size, use of iterative reconstruction technique) 2010 [employer]- All Rights Reserved Reading location - IP/workstation name: [email or web address]
[2017-07-02 14:37] LABS: ABSOLUTE BASOPHILS # (AUTO) 0.1 10^3/uL (0.0-0.2); ABSOLUTE EOSINOPHILS # (AUTO) 0.7 10^3/uL (0.0-0.6); ABSOLUTE LYMPHOCYTES (AUTO) 1.4 10^3/uL (0.5-4.7); ABSOLUTE MONOCYTES (AUTO) 0.5 10^3/uL (0.1-1.4); ABSOLUTE NEUT (AUTO) 4.8 10^3/uL (1.7-8.2); BASOPHILS % (AUTO) 0.9 % (0-2); EOSINOPHILS % (AUTO) 9.6 % (0-6); HEMATOCRIT 32.7 % (37.9-51.0); HEMOGLOBIN 10.9 g/dL (13.5-17.0); LYMPHOCYTES % (AUTO) 18.2 % (13-45); MEAN CORPUSCULAR HEMOGLOBIN 28.5 pg (27.0-33.4); MEAN CORPUSCULAR HGB CONC 33.3 g/dL (32.0-36.0); MEAN CORPUSCULAR VOLUME 86 fl (80-97); MONOCYTES % (AUTO) 6.5 % (3-13); PLATELET COUNT 281 10^3/uL (150-450); RED BLOOD COUNT 3.82 10^6/uL (4.35-5.55); RED CELL DISTRIBUTION WIDTH 14.5 % (11.5-14.0); SEGMENTED NEUTROPHILS % (AUTO) 64.8 % (42-78); TOTAL CELLS COUNTED % (AUTO) 100 %; WHITE BLOOD COUNT 7.5 10^3/uL (4.0-10.5)
[2017-07-02 14:43] LABS: ALANINE AMINOTRANSFERASE 16 U/L (21-72); ALBUMIN 3.5 g/dL (3.5-5.0); ALKALINE PHOSPHATASE 89 U/L (38-126); ANION GAP 10 (5-19); ASPARTATE AMINO TRANSFERASE 11 U/L (17-59); BILIRUBIN,DIRECT 0.2 mg/dL (0.0-0.4); BILIRUBIN,TOTAL 0.2 mg/dL (0.2-1.3); BLOOD UREA NITROGEN 45 mg/dL (7-20); CALCIUM 8.9 mg/dL (8.4-10.2); CARBON DIOXIDE 30 mmol/L (22-30); CHLORIDE 101 mmol/L (98-107); GLUCOSE 211 mg/dL (75-110); POTASSIUM 4.6 mmol/L (3.6-5.0); SODIUM 140.8 mmol/L (137-145); TOTAL PROTEIN 6.1 g/dL (6.3-8.2); VENOUS BLOOD BASE EXCESS 4.5 mmol/L; VENOUS BLOOD HCO3 30.2 mmol/L (20-32); VENOUS BLOOD PCO2 50.4 mmHg (35-63); VENOUS BLOOD PH 7.4 (7.30-7.42)
--- NOTE | 2017-07-02 14:45 | ER Document Report ---
ED General - General Chief Complaint: Shortness Of Breath Stated Complaint: SHORTNESS OF BREATH/WEAKNESS Time Seen by Provider: 07/02/17 13:55 Mode of Arrival: Ambulatory Information source: Patient Notes: 66-year-old male history of chronic kidney disease presents with sister with concerns of confusion and drowsiness. Patient was just started on new medication calcitriol yesterday and drowsiness occurred today. Patient is noted to be nodding off during interview process multiple times patient himself denies any complaints states he feels well denies any pain TRAVEL OUTSIDE OF THE [place] IN LAST 30 DAYS: No - HPI Onset: This morning Onset/Duration: Sudden Quality of pain: No pain Severity: Mild Pain Level: Denies Associated symptoms: Weakness Exacerbated by: Denies Relieved by: Denies Similar symptoms previously: No Recently seen / treated by doctor: No - Related Data Allergies/Adverse Reactions: Penicillins Allergy (Intermediate, Verified 04/23/17 16:38) swelling Past Medical History - Social History Smoking Status: Never Smoker Cigarette use (# per day): No Chew tobacco use (# tins/day): No Smoking Education Provided: No Family History: CAD, DM, Malignancy Patient has suicidal ideation: No Patient has homicidal ideation: No - Past Medical History Cardiac Medical History: Reports: Hx Congestive Heart Failure - Chronic systolic , Hx Hypercholesterolemia, Hx Hypertension Denies: Hx Coronary Artery Disease, Hx Heart Attack Pulmonary Medical History: Denies: Hx Asthma, Hx Bronchitis, Hx COPD, Hx Pneumonia, Hx Tuberculosis Neurological Medical History: Denies: Hx Cerebrovascular Accident, Hx Seizures Endocrine Medical History: Reports: Hx Diabetes Mellitus Type 2 Renal/ Medical History: Denies: Hx Peritoneal Dialysis GI Medical History: Reports: Hx Gastroesophageal Reflux Disease Musculoskeltal Medical History: Reports Hx Arthritis Psychiatric Medical History: Denies: Hx Depression Infectious Medical History: Reports: Hx MRSA Past Surgical History: Reports: Hx Internal Defibrillator - With removal, Hx Orthopedic Surgery. Denies: Hx Pacemaker - Immunizations Hx Diphtheria, Pertussis, Tetanus Vaccination: Yes Hx Pneumococcal Vaccination: 01/19/11 Review of Systems - Review of Systems Notes: REVIEW OF SYSTEMS: CONSTITUTIONAL : Denies fever, chills, or sweats. Denies recent illness. EENT: Denies eye, ear, throat, or mouth pain or symptoms. Denies nasal or sinus congestion or discharge. Denies throat, tongue, or mouth swelling or difficulty swallowing. CARDIOVASCULAR: Denies chest pain. Denies palpitations or racing or irregular heart beat. Denies ankle edema. RESPIRATORY: Denies cough, cold, or chest congestion. Denies shortness of breath, difficulty breathing, or wheezing. GASTROINTESTINAL: Denies abdominal pain or distention. Denies nausea, vomiting , or diarrhea. Denies blood in vomitus, stools, or per rectum. Denies black, tarry stools. Denies constipation. GENITOURINARY: Denies difficulty urinating, painful urination, burning, frequency, blood in urine, or discharge. MUSCULOSKELETAL: Denies back or neck pain or stiffness. Denies joint pain or swelling. SKIN: Denies rash, lesions or sores. HEMATOLOGIC : Denies easy bruising or bleeding. LYMPHATIC: Denies swollen, enlarged glands. NEUROLOGICAL: Admits to weakness PSYCHIATRIC: Denies anxiety or stress. Denies depression, suicidal ideation, or homicidal ideation. ALL OTHER SYSTEMS REVIEWED AND NEGATIVE. Dictation was performed using [employer] voice recognition software PHYSICAL EXAMINATION: GENERAL: Drowsy sleeping HEAD: Atraumatic, normocephalic. EYES: Pupils equal round and reactive to light, extraocular movements intact, sclera anicteric, conjunctiva are normal. ENT: Nares patent, oropharynx clear without exudates. Moist mucous membranes. NECK: Normal range of motion, supple without lymphadenopathy LUNGS: Breath sounds clear to auscultation bilaterally and equal. No wheezes rales or rhonchi. HEART: Regular rate and rhythm without murmurs ABDOMEN: Soft, nontender, nondistended abdomen. No guarding, no rebound. No masses appreciated. Musculoskeletal: Normal range of motion, no pitting or edema. No cyanosis. NEUROLOGICAL: Cranial nerves grossly intact. Normal speech, normal gait. Normal sensory, motor exams PSYCH: Normal mood, normal affect. SKIN: Warm, Dry, normal turgor, no rashes or lesions noted. Physical Exam - Vital signs Vitals: Temp Pulse Resp BP Pulse Ox 97.7 F 55 L 20 117/66 95 07/02/17 13:35 07/02/17 13:35 07/02/17 13:35 07/02/17 13:35 07/02/17 13:35 Course - Re-evaluation Re-evalutation: 07/02/17 14:45 Patient's presentation may be secondary to calcitriol however I am awaiting lab work results and imaging 07/02/17 18:48 Patient's lab work and imaging noted no significant abnormality, the patient became quite alert was hungry and was speaking with no difficulty, he was alert oriented to person place and time, I have less suspicion of a life-threatening issues given patient's presentation, I will discharge back to the facility with family with extremely close follow-up , they understand my risks and concerns After performing a Medical Screening Examination, I estimate there is LOW risk for INTRACRANIAL HEMORRHAGE, ISCHEMIC CVA, MALIGNANT DYSRHYTHMIA, ACUTE CORONARY SYNDROME, MENINGITIS, PULMONARY EMBOLISM, or SEPSIS thus I consider the discharge disposition reasonable. I have reevaluated this patient multiple times and no significant life threatening changes are noted. The patient and I have discussed the diagnosis and risks, and we agree with discharging home with close follow-up with the understanding that symptoms and presentations can change. We also discussed returning to the Emergency Department immediately if new or worsening symptoms occur. We have discussed the symptoms which are most concerning (e.g., changing or worsening pain, weakness, vomiting, fever) that necessitate immediate return. - Vital Signs Vital signs: Temp Pulse Resp BP Pulse Ox 97.5 F 61 12 145/111 H 98 07/02/17 16:52 07/02/17 16:52 07/02/17 16:52 07/02/17 16:52 07/02/17 16:52 - Laboratory Result Diagrams: 07/02/17 13:52 07/02/17 13:52 Laboratory results interpreted by me: 07/02/17 07/02/17 07/02/17 13:52 13:52 14:05 RBC 3.82 L Hgb 10.9 L Hct 32.7 L RDW 14.5 H Eosinophils % 9.6 H Absolute Eosinophils 0.7 H BUN 45 H Creatinine 1.83 H Est GFR ( Amer) 45 L Est GFR (Non-Af Amer) 37 L Glucose 211 H POC Glucose 216 H AST 11 L ALT 16 L Ammonia Total Protein 6.1 L Urine Protein Urine Glucose (UA) Urine Ascorbic Acid 07/02/17 07/02/17 15:25 15:37 RBC Hgb Hct RDW Eosinophils % Absolute Eosinophils BUN Creatinine Est GFR ( Amer) Est GFR (Non-Af Amer) Glucose POC Glucose AST ALT Ammonia < 8.7 L Total Protein Urine Protein 100 H Urine Glucose (UA) 50 H Urine Ascorbic Acid 20 H - Diagnostic Test Radiology reviewed: Image reviewed - no acute abnormality , report given to patient, Reports reviewed - EKG Interpretation by Me EKG shows normal: Sinus rhythm, [place], Intervals, ST-T Waves - Inverted T-wave in V1 Discharge - Discharge Clinical Impression: Drowsiness CKD (chronic kidney disease) Qualifiers: Chronic kidney disease stage: stage 3 (moderate) Qualified Code(s): N18.3 - Chronic kidney disease, stage 3 (moderate) Condition: Stable Disposition: HOME, SELF-CARE Additional Instructions: Follow up with your physician tomorrow for further care or return to the ED IMMEDIATELY if symptoms worsen or new concerns occur. If you cannot afford to follow up with your primary care physician a list of low cost clinics have been provided at the end of your discharge papers as well. Referrals: Giuliana GALO MD [Primary Care Provider] - Follow up as needed
[2017-07-02 14:46] LABS: INTERNATIONAL RATION (INR) 1.07; PROTHROMBIN TIME 14.7 SEC (11.4-15.4)
--- NOTE | 2017-07-02 15:06 | RADIOLOGY REPORT (SQ) ---
EXAM DESCRIPTION: CHEST SINGLE VIEW COMPLETED DATE/TIME: 07/02/2017 2:43 pm REASON FOR STUDY: weakness COMPARISON: 04/23/2017 EXAM PARAMETERS: NUMBER OF VIEWS: One view. TECHNIQUE: Single frontal radiographic view of the chest acquired. RADIATION DOSE: NA LIMITATIONS: None. FINDINGS: LUNGS AND PLEURA: No opacities, masses or pneumothorax. No pleural effusion. MEDIASTINUM AND HILAR STRUCTURES: No masses. Contour normal. HEART AND VASCULAR STRUCTURES: Cardiac silhouette is enlarged and unchanged in configuration BONES: No acute findings. HARDWARE: None in the chest. OTHER: No other significant finding. IMPRESSION: Cardiomegaly. No acute findings. TECHNICAL DOCUMENTATION: JOB ID: [id number] [employer]- All Rights Reserved Reading location - IP/workstation name: [email or web address]
[2017-07-02 15:55] LABS: APPEARANCE,URINE CLEAR; BILIRUBIN,URINE NEGATIVE (NEGATIVE); COLOR,URINE YELLOW; GLUCOSE, URINE 50 mg/dL (NEGATIVE); KETONES,URINE NEGATIVE (NEGATIVE); LEUKOCYTE ESTERASE,URINE NEGATIVE (NEGATIVE); NITRITE,URINE NEGATIVE (NEGATIVE); PROTEIN,URINE 100 mg/dL (NEGATIVE); URINE SPECIFIC GRAVITY 1.009; UROBILINOGEN,URINE NEGATIVE mg/dL (<2.0)
[2017-07-02 17:00] VITALS: BP 145/111
--- NOTE | 2017-07-02 23:39 | EKG REPORT ---
SEVERITY:- ABNORMAL ECG - SINUS RHYTHM FIRST DEGREE AV BLOCK NONSPECIFIC INTRAVENTRICULAR CONDUCTION DELAY PROBABLE LEFT VENTRICULAR HYPERTROPHY : Confirmed by: Yo Foss MD 02-Jul-2017 18:56:17
== END 2017-07-02 16:52 | disposition home or self-care (01) ==
LOC: ER 13:22
DX: N18.3 Chronic kidney disease, stage 3 (moderate) (principal); R40.0 Somnolence; R06.02 Shortness of breath; R53.1 Weakness; I50.22 Chronic systolic (congestive) heart failure; E78.00 Pure hypercholesterolemia, unspecified; I11.0 Hypertensive heart disease with heart failure; E11.9 Type 2 diabetes mellitus without complications; Z88.0 Allergy status to penicillin; Z86.14 Personal history of Methicillin resistant Staphylococcus aureus infection
CPT/HCPCS: 36415; 70450; 71045; 80053; 81001; 82140; 82803; 82962; 83605; 85025; 85610; 87040; 87077; 87086; 87088; 87186; 93005; 93010; 99285

== ENCOUNTER → 2017-09-19 | Outpatient (CLI) | payer MEDICAID, MEDICARE ==
[2017-09-19 12:12] LABS: HEMATOCRIT 35.7 % (37.9-51.0); MEAN CORPUSCULAR HEMOGLOBIN 27.8 pg (27.0-33.4); MEAN CORPUSCULAR HGB CONC 33.6 g/dL (32.0-36.0); MEAN CORPUSCULAR VOLUME 83 fl (80-97); PLATELET COUNT 247 10^3/uL (150-450); RED BLOOD COUNT 4.32 10^6/uL (4.35-5.55); RED CELL DISTRIBUTION WIDTH 14.6 % (11.5-14.0); WHITE BLOOD COUNT 7.5 10^3/uL (4.0-10.5)
[2017-09-19 12:53] LABS: ANION GAP 14 (5-19); BLOOD UREA NITROGEN 68 mg/dL (7-20); CALCIUM 9.3 mg/dL (8.4-10.2); CARBON DIOXIDE 25 mmol/L (22-30); CHLORIDE 104 mmol/L (98-107); GLUCOSE 246 mg/dL (75-110); IRON(TIBC) 93.6 ug/dL (49-181); PHOSPHORUS 4.8 mg/dL (2.5-4.5); POTASSIUM 5.5 mmol/L (3.6-5.0); SODIUM 143.1 mmol/L (137-145)
[2017-09-19 15:42] LABS: APPEARANCE,URINE TURBID; BILIRUBIN,URINE NEGATIVE (NEGATIVE); COLOR,URINE YELLOW; GLUCOSE, URINE NEGATIVE (NEGATIVE); KETONES,URINE NEGATIVE (NEGATIVE); LEUKOCYTE ESTERASE,URINE LARGE (NEGATIVE); NITRITE,URINE NEGATIVE (NEGATIVE); PROTEIN,URINE 100 mg/dL (NEGATIVE); UROBILINOGEN,URINE NEGATIVE mg/dL (<2.0)
== END ==
LOC: OD 11:05
PROVIDERS: ATTEND Internal Medicine Nephrology
DX: I12.9 Hypertensive chronic kidney disease with stage 1 through stage 4 chronic kidney disease, or unspecified chronic kidney disease (principal); N18.3 Chronic kidney disease, stage 3 (moderate); I50.9 Heart failure, unspecified; D64.9 Anemia, unspecified
CPT/HCPCS: 36415; 80048; 81001; 82728; 83540; 83550; 83970; 84100; 85027

== ENCOUNTER → 2017-09-22 | Outpatient (CLI) | payer MEDICAID | LOC: OD 14:11 | PROVIDERS: ATTEND Internal Medicine Nephrology | DX: E87.5 Hyperkalemia (principal) | CPT/HCPCS: 36415; 84132 ==

== ENCOUNTER → 2017-10-10 | Outpatient (CLI) | payer MEDICARE, MEDICAID ==
[2017-10-10 13:46] LABS: HEMATOCRIT 34.5 % (37.9-51.0); HEMOGLOBIN 11.8 g/dL (13.5-17.0); MEAN CORPUSCULAR HEMOGLOBIN 28.3 pg (27.0-33.4); MEAN CORPUSCULAR HGB CONC 34.2 g/dL (32.0-36.0); MEAN CORPUSCULAR VOLUME 83 fl (80-97); PLATELET COUNT 299 10^3/uL (150-450); RED BLOOD COUNT 4.16 10^6/uL (4.35-5.55); RED CELL DISTRIBUTION WIDTH 14.7 % (11.5-14.0); WHITE BLOOD COUNT 7.1 10^3/uL (4.0-10.5)
[2017-10-10 14:06] LABS: ANION GAP 14 (5-19); BLOOD UREA NITROGEN 89 mg/dL (7-20); CALCIUM 10.1 mg/dL (8.4-10.2); CARBON DIOXIDE 26 mmol/L (22-30); CHLORIDE 97 mmol/L (98-107); POTASSIUM 4.5 mmol/L (3.6-5.0); SODIUM 136.7 mmol/L (137-145)
[2017-10-10 14:28] LABS: GLUCOSE 522 mg/dL (75-110)
== END ==
LOC: OD 12:54
PROVIDERS: ATTEND Internal Medicine Nephrology
DX: I12.9 Hypertensive chronic kidney disease with stage 1 through stage 4 chronic kidney disease, or unspecified chronic kidney disease (principal); N18.3 Chronic kidney disease, stage 3 (moderate); R60.9 Edema, unspecified; E87.5 Hyperkalemia; D64.9 Anemia, unspecified
CPT/HCPCS: 36415; 80048; 85027

== ENCOUNTER 2017-11-05 12:04 | Inpatient (IN) | payer MEDICAID, MEDICARE ==
[2017-11-05 12:37] LABS: ABSOLUTE EOSINOPHILS # (AUTO) 0.1 10^3/uL (0.0-0.6); ABSOLUTE LYMPHOCYTES (AUTO) 0.8 10^3/uL (0.5-4.7); ABSOLUTE MONOCYTES (AUTO) 0.3 10^3/uL (0.1-1.4); ABSOLUTE NEUT (AUTO) 5.8 10^3/uL (1.7-8.2); BASOPHILS % (AUTO) 0.7 % (0-2); EOSINOPHILS % (AUTO) 1.5 % (0-6); HEMATOCRIT 38.6 % (37.9-51.0); HEMOGLOBIN 13.1 g/dL (13.5-17.0); LYMPHOCYTES % (AUTO) 11.3 % (13-45); MEAN CORPUSCULAR HEMOGLOBIN 28.4 pg (27.0-33.4); MEAN CORPUSCULAR VOLUME 84 fl (80-97); MONOCYTES % (AUTO) 4.6 % (3-13); PLATELET COUNT 307 10^3/uL (150-450); RED BLOOD COUNT 4.62 10^6/uL (4.35-5.55); RED CELL DISTRIBUTION WIDTH 14.4 % (11.5-14.0); SEGMENTED NEUTROPHILS % (AUTO) 81.9 % (42-78); TOTAL CELLS COUNTED % (AUTO) 100 %; WHITE BLOOD COUNT 7.1 10^3/uL (4.0-10.5)
[2017-11-05] MEDS ORDERED: ONDANSETRON 4 MG TAB.RAPDIS PO ONE (12:41)
[2017-11-05] MEDS ORDERED: ONDANSETRON 4 MG TAB.RAPDIS ONE (12:42)
--- NOTE | 2017-11-05 12:59 | ER Document Report ---
ED General - General Stated Complaint: BLOOD SUGAR ISSUE Time Seen by Provider: 11/05/17 12:34 Notes: Patient brought in by EMS for high blood sugar and vomiting. Patient said his sugars been very high for the last couple of days getting worse last night. Says he vomited all night long and now has brownish liquid that he is vomiting up. Says he filled the trash can. Has not noted any fever. No diarrhea. Last bowel movement was 6 or 7 days ago. Patient was seen in this emergency department approximately 1 month ago for similar symptoms, but not as severe, and he was hydrated and sent home. He is an insulin-dependent diabetic. Family arrives and provides that the patient then having similar symptoms for longer, 4-5 days. He had profuse vomiting about 4 or 5 days ago followed by brief respite followed by recurrent heavy vomiting last night. TRAVEL OUTSIDE OF THE [place] IN LAST 30 DAYS: No - Related Data Allergies/Adverse Reactions: Penicillins Allergy (Intermediate, Verified 04/23/17 16:38) swelling Past Medical History - Social History Smoking Status: Current Every Day Smoker Family History: Reviewed & Not Pertinent, CAD, DM, Malignancy - Past Medical History Cardiac Medical History: Reports: Hx Congestive Heart Failure - Chronic systolic , Hx Hypercholesterolemia, Hx Hypertension Neurological Medical History: Denies: Hx Cerebrovascular Accident, Hx Seizures Endocrine Medical History: Reports: Hx Diabetes Mellitus Type 1, Hx Diabetes Mellitus Type 2 Renal/ Medical History: Reports: Hx Renal Insufficiency GI Medical History: Reports: Hx Gastroesophageal Reflux Disease Musculoskeletal Medical History: Reports Hx Arthritis Infectious Medical History: Reports: Hx MRSA Past Surgical History: Reports: Hx Internal Defibrillator - With removal, Hx Orthopedic Surgery - Immunizations Hx Diphtheria, Pertussis, Tetanus Vaccination: Yes Hx Pneumococcal Vaccination: 01/19/11 Review of Systems - Review of Systems Notes: REVIEW OF SYSTEMS: Limited because patient is sleepy and not answering questions easily. CONSTITUTIONAL : Denies fever. EENT: Denies eye, ear, nose or mouth or throat pain or other symptoms. CARDIOVASCULAR: Denies chest pain. RESPIRATORY: Denies cough, chest congestion, or shortness of breath. GASTROINTESTINAL: See HPI. GENITOURINARY: Denies difficulty or painful urinating, urinary frequency, blood in urine. MUSCULOSKELETAL: Denies back or neck pain. Denies joint pain or swelling. SKIN: Denies rash or skin lesions. NEUROLOGICAL: Denies LOC or altered mental status. Denies headache. Denies sensory loss or motor deficits. ALL OTHER SYSTEMS REVIEWED AND NEGATIVE. Physical Exam - Vital signs Interpretation: Normal - Notes Notes: PHYSICAL EXAMINATION: GENERAL: Well-appearing, in no acute distress. Vital signs are all normal. HEAD: Atraumatic, normocephalic. EYES: Pupils equal round and reactive to light, extraocular movements intact. ENT: oropharynx clear without exudates. Moist mucous membranes. Tongue not dry. NECK: Normal range of motion, supple. LUNGS: Breath sounds clear and equal bilaterally. HEART: Regular rate and rhythm without murmurs. ABDOMEN: Soft, nontender. No guarding or rebound. No masses. BACK: No tenderness throughout entire back. EXTREMITIES: Normal range of motion without pain. NEUROLOGICAL: Normal speech, gait not tested. Normal sensory, motor, and reflex exams. Awake, alert, and oriented x3. Slow to respond, but seems to understand and answer questions appropriately. PSYCH: Normal mood, normal affect. SKIN: Warm, dry, no rashes. Course - Re-evaluation Re-evalutation: 11/05/17 13:55 Patient was started on an insulin drip of 4 units/h after being given a 4 unit bolus IV. He got a liter of saline and then a second liter starting at 250 mL/ h. Lab studies are consistent with renal insufficiency that the patient already had plus some dehydration. Spoke with hospitalist who will admit him for hydration and control of his emesis. - Laboratory Result Diagrams: 11/05/17 11:43 11/05/17 11:43 Laboratory results interpreted by me: 11/05/17 11/05/17 11/05/17 11:43 11:43 12:12 Hgb 13.1 L RDW 14.4 H Seg Neutrophils % 81.9 H Lymphocytes % 11.3 L Chloride 94 L Carbon Dioxide 34 H BUN 63 H Creatinine 2.34 H Est GFR ( Amer) 34 L Est GFR (Non-Af Amer) 28 L Glucose 478 H* POC Glucose 457 H* ALT 20 L Total Protein 8.5 H - Diagnostic Test Radiology results interpreted by me: 11/05/17 13:56 Chest x-ray showing no acute changes. - EKG Interpretation by Me EKG shows normal: Sinus rhythm Rate: Normal Voltage: Consistant with LVH Discharge - Discharge Clinical Impression: Vomiting, Dehydration, Renal insufficiency Condition: Stable Disposition: ADMITTED INPATIENT Admitting Provider: Hospitalist Unit Admitted: Medical Floor
[2017-11-05] MEDS ORDERED: NORMAL SALINE 1000 ML 1,000 ML IV ONE (13:00)
[2017-11-05] MEDS ORDERED: INSULIN REG, HUMAN 100 UNIT/ML 3 ML VIAL (PYX) IV ONE ×2 (13:01→13:04)
[2017-11-05 13:04] LABS: ALANINE AMINOTRANSFERASE 20 U/L (21-72); ALBUMIN 4.5 g/dL (3.5-5.0); ALKALINE PHOSPHATASE 110 U/L (38-126); ANION GAP 15 (5-19); ASPARTATE AMINO TRANSFERASE 28 U/L (17-59); BILIRUBIN,DIRECT 0.3 mg/dL (0.0-0.4); BILIRUBIN,TOTAL 0.6 mg/dL (0.2-1.3); BLOOD UREA NITROGEN 63 mg/dL (7-20); CALCIUM 9.8 mg/dL (8.4-10.2); CARBON DIOXIDE 34 mmol/L (22-30); CHLORIDE 94 mmol/L (98-107); POTASSIUM 4.4 mmol/L (3.6-5.0); SODIUM 142.6 mmol/L (137-145); TOTAL PROTEIN 8.5 g/dL (6.3-8.2)
[2017-11-05 13:17] LABS: GLUCOSE 478 mg/dL (75-110)
--- NOTE | 2017-11-05 13:29 | RADIOLOGY REPORT (SQ) ---
EXAM DESCRIPTION: CHEST SINGLE VIEW COMPLETED DATE/TIME: 11/05/2017 1:16 pm REASON FOR STUDY: Vomiting coffee-ground,? DKA COMPARISON: Chest films 10/10/2017, 07/02/2017, 04/23/2017, 12/23/2016 EXAM PARAMETERS: NUMBER OF VIEWS: One view. TECHNIQUE: Single frontal radiographic view of the chest acquired. RADIATION DOSE: NA LIMITATIONS: None. FINDINGS: LUNGS AND PLEURA: No opacities, masses or pneumothorax. No pleural effusion. MEDIASTINUM AND HILAR STRUCTURES: No masses. Contour normal. HEART AND VASCULAR STRUCTURES: Heart normal in size. Normal vasculature. BONES: No acute findings. HARDWARE: None in the chest. OTHER: No other significant finding. IMPRESSION: NO ACUTE RADIOGRAPHIC FINDING IN THE CHEST. TECHNICAL DOCUMENTATION: JOB ID: [id number] [employer]- All Rights Reserved Reading location - IP/workstation name: [email or web address]
[2017-11-05] MEDS ORDERED: DEXTROSE 50%-WATER 25 GM/50 ML DISP.SYRIN IV PRN ×2 (14:30)
[2017-11-05] MEDS ORDERED: GLUCAGON,HUMAN RECOMB 1 MG INJ IM PRN (14:30)
[2017-11-05] MEDS ORDERED: DEXTROSE 40% GEL 15 GM TUBE PO PRN ×2 (14:30)
[2017-11-05] MEDS ORDERED: ACETAMINOPHEN 325 MG TABLET PO PRN (14:34)
[2017-11-05] MEDS ORDERED: MAG HYDROX/AL HYDROX/SIMETH SUSP 30 ML UDCUP PO PRN (14:34)
[2017-11-05] MEDS ORDERED: PROMETHAZINE HCL INJ 25 MG/1 ML VIAL IV PRN (14:34)
[2017-11-05] MEDS ORDERED: ONDANSETRON HCL INJ/PF 4 MG/2 ML SDV IV PRN (14:34)
[2017-11-05] MEDS ORDERED: MAGNESIUM HYDROXIDE SUSP 30 ML UDCUP PO PRN (14:34)
[2017-11-05 14:58] LABS: APPEARANCE,URINE CLOUDY; BILIRUBIN,URINE NEGATIVE (NEGATIVE); COLOR,URINE YELLOW; GLUCOSE, URINE >=500 mg/dL (NEGATIVE); KETONES,URINE TRACE mg/dL (NEGATIVE); LEUKOCYTE ESTERASE,URINE LARGE (NEGATIVE); NITRITE,URINE NEGATIVE (NEGATIVE); PROTEIN,URINE 100 mg/dL (NEGATIVE); UROBILINOGEN,URINE NEGATIVE mg/dL (<2.0)
[2017-11-05] MEDS ORDERED: PANTOPRAZOLE SODIUM 40 MG VIAL IV ONE (15:15)
[2017-11-05 15:17] LABS: VENOUS BLOOD HCO3 31.5 mmol/L (20-32); VENOUS BLOOD PCO2 51.7 mmHg (35-63); VENOUS BLOOD PH 7.4 (7.30-7.42)
[2017-11-05] MEDS: NORMAL SALINE 1000 ML 1,000 ML IV PRN ×2 (15:43→20:20)
[2017-11-05] MEDS: METOCLOPRAMIDE HCL 10 MG TABLET PO SCH ×2 (15:44→22:47)
--- NOTE | 2017-11-05 16:04 | RADIOLOGY REPORT (SQ) ---
EXAM DESCRIPTION: ABDOMEN 2 VIEWS COMPLETED DATE/TIME: 11/05/2017 3:43 pm REASON FOR STUDY: n/v/abd pain ? obstruction/ileus COMPARISON: None. NUMBER OF VIEWS: Two views. TECHNIQUE: Supine and erect/decubitus radiographic images of the abdomen acquired. LIMITATIONS: None. FINDINGS: FREE AIR: None. No abnormal gas collections. LUNG BASES: Clear. BOWEL GAS PATTERN: Nonobstructive pattern. Large amount of stool in the colon and rectum. No dilate d loops or air fluid levels. CALCIFICATIONS: No suspicious calcifications. SOFT TISSUES: No gross mass or suggestion of organomegaly. HARDWARE: Hardware in the right hip. BONES: No acute fracture. Degenerative changes in the hips and spine. No worrisome bone lesions. OTHER: No other significant finding. IMPRESSION: LARGE AMOUNT OF STOOL IN THE COLON AND RECTUM CONSISTENT WITH CONSTIPATION. NO RADIOGRA PHIC EVIDENCE FOR ACUTE ABDOMINAL DISEASE. TECHNICAL DOCUMENTATION: JOB ID: [id number] [employer]- All Rights Reserved Reading location - IP/workstation name: [email or web address]
[2017-11-05] MEDS ORDERED: NA PHOS,M-B/NA PHOS,DI-BA (ADULT) 133 ML ENEMA PR ONE (16:52)
[2017-11-05 17:04] LABS: ANION GAP 12 (5-19); BLOOD UREA NITROGEN 60 mg/dL (7-20); CARBON DIOXIDE 29 mmol/L (22-30); CHLORIDE 103 mmol/L (98-107); GLUCOSE 241 mg/dL (75-110); POTASSIUM 3.7 mmol/L (3.6-5.0); SODIUM 144.2 mmol/L (137-145)
[2017-11-05] MEDS: DOCUSATE SODIUM 100 MG CAPSULE PO SCH (17:15)
[2017-11-05] MEDS: INSULIN LISPRO 100 UNIT/ML 3 ML VIAL SUBCUT PRN ×2 (17:35→23:23)
[2017-11-05] MEDS ORDERED: NICOTINE 14 MG/24 HR PATCH.TD24 TD PRN (18:36)
--- NOTE | 2017-11-05 18:37 | PDOC H&P ---
History of Present Illness Admission Date/PCP: 11/05/17 14:29 Patient complains of: Nausea with vomiting, hyperglycemia History of Present Illness: FLAG MORELIA THIBODEAUX is a 67 year old male with a past medical history significant for insulin-dependent diabetes mellitus, systolic CHF, chronic kidney disease, hypertension, hyperlipidemia, GERD, and CVA who presents to the emergency department today with complaint of 3 days of intermittent nausea with vomiting and diffuse abdominal discomfort. Most of the HPI is obtained from the patient' s family members. They report that the patient began vomiting 3 days ago, improved and was able to drink fluids (primarily Rootbeer) and eat hotdog on the , with recurrence of his nausea and vomiting occurring late on the and continuing through today. They report that the patient has continued to administer his insulin but with continued worsening of hyperglycemia. Both the patient and family members deny coffee-ground emesis, saray blood in emesis, melena, and hematochezia; they do comment that his emesis is dark brown in nature but again relates this to copious amounts of tea and root beer. The patient is noted to have a speech impediment, however, family members report that this is typical when his blood sugar is elevated. Evaluation in the emergency department reveals a normal CBC, VBG, acute worsening of his chronic renal failure, hyperglycemia with a glucose of 478, and a normal lipase. Chest x-ray was benign. The patient was provided 4 units of regular insulin IV and then placed on an insulin drip at 4 U/h. He is referred to the hospital service for admission and management of nausea and vomiting with hyperglycemia. Past Medical History Cardiac Medical History: Reports: Congestive Heart Failure - Chronic systolic, Hyperlipidema, Hypertension Denies: Coronary Artery Disease, Myocardial Infarction Pulmonary Medical History: Reports: None EENT Medical History: Reports: None Neurological Medical History: Reports: Ischemic CVA Denies: Seizures Endocrine Medical History: Reports: Diabetes Mellitus Type 2 - Insulin-dependent Denies: Hypothyroidism Renal/ Medical History: Reports: Chronic Kidney Disease Malignancy Medical History: Reports: None GI Medical History: Reports: Gastroesophageal Reflux Disease Musculoskeltal Medical History: Reports: Arthritis Psychiatric Medical History: Denies: Depression Traumatic Medical History: Reports: None Hematology: Reports: Anemia Infectious Medical History: Reports: Methicillin-Resistant Staph Aureus Past Surgical History Past Surgical History: Reports: Internal Defibrillator - With removal, Orthopedic Surgery Denies: Pacemaker Social History Information Source: Patient, Relative Lives with: Alone Smoking Status: Current Every Day Smoker Cigarettes Packs Per Day: 0.5 Number of Years Smokin Frequency of Alcohol Use: None Hx Recreational Drug Use: No Drugs: None Hx Prescription Drug Abuse: No - Advance Directive Resuscitation Status: Do Not Resuscitate Surrogate healthcare decision maker:: The patient's daughter, Virgen, Family History Family History: Reviewed & Not Pertinent, CAD, DM, Malignancy Parental Family History Reviewed: Yes Children Family History Reviewed: Yes Sibling(s) Family History Reviewed.: Yes Medication/Allergy Home Medications: Amlodipine Besylate [Norvasc 10 mg Tablet] 10 mg PO DAILY 04/23/17 Carvedilol [Coreg 25 mg Tablet] 12.5 mg PO DAILY 04/23/17 Sacubitril/Valsartan [Entresto 49 mg-51 mg Tablet] 1 each PO BID 04/23/17 Aspirin [Aspirin 81 mg Chewable Tablet] 81 mg PO DAILY 30 Days #0 tab.chew 05/01 Cilostazol [Pletal 100 mg Tablet] 50 mg PO BID tablet 05/01/17 Docusate Sodium [Colace 100 mg Capsule] 100 mg PO BID capsule 05/01/17 Polyethylene Glycol 3350 [Miralax Powder 17 gm/Packet] 17 gm PO DAILY powd.pack 05/01/17 Clonidine HCl [Catapres 0.1 mg Tablet] 0.1 mg PO Q12 11/05/17 Allergies/Adverse Reactions: Penicillins Allergy (Intermediate, Verified 04/23/17 16:38) swelling Review of Systems Constitutional: ABSENT: chills, fever(s), headache(s), weight gain, weight loss Eyes: ABSENT: visual disturbances Ears: ABSENT: hearing changes Cardiovascular: ABSENT: chest pain, dyspnea on exertion, edema, orthropnea, palpitations Respiratory: ABSENT: cough, hemoptysis Gastrointestinal: PRESENT: abdominal pain, constipation, nausea, vomiting. ABSENT: coffee ground emesis, diarrhea, hematemesis, hematochezia Genitourinary: ABSENT: difficulty urinating, dysuria, hematuria Musculoskeletal: ABSENT: joint swelling Integumentary: ABSENT: rash, wounds Neurological: ABSENT: abnormal gait, abnormal speech, confusion, dizziness, focal weakness, syncope Psychiatric: ABSENT: anxiety, depression, homidical ideation, suicidal ideation Endocrine: ABSENT: cold intolerance, heat intolerance, polydipsia, polyuria Hematologic/Lymphatic: ABSENT: easy bleeding, easy bruising Physical Exam Vital Signs: Temp Pulse Resp BP Pulse Ox 98.4 F 83 16 143/90 H 97 11/05/17 16:24 11/05/17 16:24 11/05/17 16:24 11/05/17 16:24 11/05/17 16:24 Intake & Output 11/04/17 11/05/17 11/06/17 06:59 06:59 06:59 Weight 76.8 kg General appearance: PRESENT: no acute distress, cooperative, disheveled, thin, well-developed, well-nourished Head exam: PRESENT: atraumatic, normocephalic Eye exam: PRESENT: conjunctiva pink, EOMI, PERRLA. ABSENT: scleral icterus Ear exam: PRESENT: normal external ear exam Mouth exam: PRESENT: dry mucosa, tongue midline Teeth exam: PRESENT: poor dentation Neck exam: ABSENT: carotid bruit, JVD, lymphadenopathy, thyromegaly Respiratory exam: PRESENT: clear to auscultation nathan, symmetrical, unlabored. ABSENT: rales, rhonchi, wheezes Cardiovascular exam: PRESENT: RRR, +S1, +S2. ABSENT: diastolic murmur, rubs, systolic murmur Pulses: PRESENT: normal dorsalis pedis pul Vascular exam: PRESENT: normal capillary refill GI/Abdominal exam: PRESENT: firm, hypoactive bowel sounds, tenderness. ABSENT: distended, guarding, mass, organolmegaly, rebound Rectal exam: PRESENT: deferred Extremities exam: PRESENT: full ROM. ABSENT: calf tenderness, clubbing, pedal edema Neurological exam: PRESENT: alert, awake, oriented to person, oriented to place , oriented to time, oriented to situation, CN II-XII grossly intact. ABSENT: motor sensory deficit Psychiatric exam: PRESENT: appropriate affect, normal mood, unusual affect. ABSENT: homicidal ideation, suicidal ideation Skin exam: PRESENT: dry, intact, warm. ABSENT: cyanosis, rash Results Laboratory Results: 11/05/17 16:35 11/05/17 11/05/17 11/05/17 14:39 14:51 16:35 VBG pH 7.40 VBG pCO2 51.7 VBG HCO3 31.5 VBG Base Excess 5.0 Sodium 144.2 Potassium 3.7 Chloride 103 Carbon Dioxide 29 Anion Gap 12 BUN 60 H Creatinine 1.96 H Est GFR ( Amer) 42 L Est GFR (Non-Af Amer) 34 L Glucose 241 H Calcium 9.0 Urine Color YELLOW Urine Appearance CLOUDY Urine pH 7.0 Ur Specific [place] 1.010 Urine Protein 100 H Urine Glucose (UA) >=500 H Urine Ketones TRACE H Urine Blood SMALL H Urine Nitrite NEGATIVE Ur Leukocyte Esterase LARGE H Urine WBC (Auto) >182 Urine RBC (Auto) 2 Impressions: Abdomen X-Ray 11/05/17 00:00 IMPRESSION: LARGE AMOUNT OF STOOL IN THE COLON AND RECTUM CONSISTENT WITH CONSTIPATION. NO RADIOGRAPHIC EVIDENCE FOR ACUTE ABDOMINAL DISEASE. Chest X-Ray 11/05/17 12:49 IMPRESSION: NO ACUTE RADIOGRAPHIC FINDING IN THE CHEST. Assessment & Plan - Diagnosis (1) Nausea and vomiting Qualifiers: Vomiting type: unspecified Is this a current diagnosis for this admission?: Yes Plan: Intermittent nausea and vomiting 3 days; likely secondary to constipation. May be worsened by uncontrolled diabetes; hyperglycemia greater than 400. Patient and family deny hematemesis, hematochezia, melena. Report of coffee- ground emesis by ED provider, however, none noted by nursing. The patient is admitted to the medical floor. He is initially placed in n.p.o. status with the exception of ice chips. He has received 2 L and as while in the ED; will continue gentle maintenance IV fluids and monitor closely for fluid volume overload given the patient's history of CHF. IV antiemetics as needed. Continue PPI. We will check occult stool. We will address constipation and hyperglycemia; see below. (2) Diabetes mellitus with hyperglycemia Qualifiers: Diabetes mellitus type: type 2 Diabetes mellitus shelter insulin use: with shelter use Qualified Code(s): E11.65 - Type 2 diabetes mellitus with hyperglycemia; Z79.4 - buttermaker continuous churn (current) use of insulin; Z79.4 - [employer] continuous churn ( current) use of insulin; Z79.4 - [employer] continuous churn (current) use of insulin; Z79.4 - [employer] continuous churn (current) use of insulin Is this a current diagnosis for this admission?: Yes Plan: The patient does have insulin-dependent diabetes; family members report that he did take his to see by 20 units this a.m. on schedule. He continues to have increasing blood sugar over the last 3-4 days; found to have a blood glucose greater than 400 in the emergency department today. He has already received 2 L NS bolus; will continue IV maintenance fluids. He received a 4 unit bolus of regular insulin via IV and was placed on an insulin drip. Although the patient's CO2 is elevated at 34, his anion gap is normal at 15. We will schedule hourly Accu-Cheks and discontinue insulin drip when blood glucose approaches 250. At that time we will begin Accu-Cheks every 6 and resume subcutaneous Humalog for sliding scale coverage. (3) Acute on chronic kidney failure Qualifiers: Acute renal failure type: unspecified Chronic kidney disease stage: stage 3 (moderate) Qualified Code(s): N17.9 - Acute kidney failure, unspecified; N18.3 - Chronic kidney disease, stage 3 (moderate); N18.3 - Chronic kidney disease, stage 3 (moderate); N18.3 - Chronic kidney disease, stage 3 (moderate) Is this a current diagnosis for this admission?: Yes Plan: The patient was admitted with acute on chronic kidney failure; patient appears to be bordering on CKD 3 (moderate) and CKD 4. Most recent EGFR is are in the low 20s. Today his initial GFR is found to be 28 with a creatinine of 2.34 which is actually near his baseline. Acute worsening is secondary to dehydration as a result of nausea and vomiting. We will continue to hydrate with IV fluids. Avoid nephrotoxic medications. Monitor serial chemistries. (4) Chronic systolic (congestive) heart failure Is this a current diagnosis for this admission?: Yes Plan: Without exacerbation; patient is maintaining oxygen saturations on room air, has clear lung sounds, and a clear chest x-ray. We will continue his outpatient medication regiment. We will monitor daily weights. (5) Dehydration Is this a current diagnosis for this admission?: Yes Plan: Secondary to nausea and vomiting. Plan as above. (6) Constipation Qualifiers: Constipation type: unspecified constipation type Qualified Code(s): K59.00 - Constipation, unspecified Is this a current diagnosis for this admission?: Yes Plan: The patient reports diffuse, vague, abdominal discomfort. Unknown last bowel movement with a history of constipation. Abdominal x-ray does demonstrate a large stool load in the colon. We will begin fleets enemas twice daily, lactulose x1, and daily colace. (7) GERD (gastroesophageal reflux disease) Qualifiers: Esophagitis presence: esophagitis presence not specified Qualified Code(s) : K21.9 - Gastro-esophageal reflux disease without esophagitis Is this a current diagnosis for this admission?: Yes Plan: The patient is placed on a PPI. We will continue his outpatient Reglan regiment for gastroparesis. (8) HTN (hypertension) Qualifiers: Hypertension type: essential hypertension Qualified Code(s): I10 - Essential (primary) hypertension Is this a current diagnosis for this admission?: Yes Plan: We will continue the patient's outpatient medication regimen. (9) Tobacco abuse Is this a current diagnosis for this admission?: Yes Plan: Smoking cessation is encouraged. Nicotine replacement therapies are offered. - Time Time Spent: Greater than 70 Minutes Smoking Cessation Education: 3 to 10 minutes Medications reviewed and adjusted accordingly: Yes Anticipated discharge: Home Within: within 24 hours
[2017-11-05] MEDS ORDERED: LACTULOSE SYRUP 20 GM/30 ML UDCUP PO ONE (19:15)
--- NOTE | 2017-11-05 22:03 | EKG REPORT ---
SEVERITY:- ABNORMAL ECG - SINUS RHYTHM NONSPECIFIC INTRAVENTRICULAR CONDUCTION DELAY PROBABLE LVH WITH SECONDARY REPOL ABNRM : Confirmed by: Grace Baker 05-Nov-2017 22:02:39
[2017-11-05] MEDS: HEPARIN SOD (PORCINE) 5,000 UNIT/ML 1 ML SYRINGE SUBCUT SCH (22:46)
[2017-11-05] MEDS: SACUBITRIL/VALSARTAN 49 MG/51 MG TABLET PO SCH (22:47)
[2017-11-05] MEDS: CILOSTAZOL 100 MG TABLET PO SCH (22:47)
[2017-11-05] MEDS: CLONIDINE HCL 0.1 MG TABLET PO SCH (22:48)
[2017-11-05] MEDS: NA PHOS,M-B/NA PHOS,DI-BA (ADULT) 133 ML ENEMA PR SCH (22:48)
[2017-11-06 05:42] LABS: ANION GAP 12 (5-19); BLOOD UREA NITROGEN 58 mg/dL (7-20); CALCIUM 8.4 mg/dL (8.4-10.2); CARBON DIOXIDE 28 mmol/L (22-30); CHLORIDE 106 mmol/L (98-107); GLUCOSE 180 mg/dL (75-110); POTASSIUM 3.9 mmol/L (3.6-5.0); SODIUM 145.5 mmol/L (137-145)
[2017-11-06 05:44] LABS: ABSOLUTE EOSINOPHILS # (AUTO) 0.2 10^3/uL (0.0-0.6); ABSOLUTE LYMPHOCYTES (AUTO) 1.7 10^3/uL (0.5-4.7); BASOPHILS % (AUTO) 0.5 % (0-2)
[2017-11-06] MEDS: HEPARIN SOD (PORCINE) 5,000 UNIT/ML 1 ML SYRINGE SUBCUT SCH ×2 (05:47→15:50)
[2017-11-06] MEDS: LANSOPRAZOLE 15 MG TAB.RAP.DR PO SCH ×2 (05:48→17:52)
[2017-11-06] MEDS: INSULIN LISPRO 100 UNIT/ML 3 ML VIAL SUBCUT PRN (05:53)
[2017-11-06] MEDS: NORMAL SALINE 1000 ML 1,000 ML IV PRN (05:59)
[2017-11-06 06:30] LABS: ABSOLUTE BASOPHILS # (AUTO) 0.1 10^3/uL (0.0-0.2); ABSOLUTE MONOCYTES (AUTO) 0.8 10^3/uL (0.1-1.4); ABSOLUTE NEUT (AUTO) 7.6 10^3/uL (1.7-8.2); EOSINOPHILS % (AUTO) 2.2 % (0-6); HEMATOCRIT 27.4 % (37.9-51.0); LYMPHOCYTES % (AUTO) 16.6 % (13-45); MEAN CORPUSCULAR HEMOGLOBIN 29.6 pg (27.0-33.4); MEAN CORPUSCULAR HGB CONC 35.9 g/dL (32.0-36.0); MEAN CORPUSCULAR VOLUME 82 fl (80-97); MONOCYTES % (AUTO) 7.9 % (3-13); PLATELET COUNT 227 10^3/uL (150-450); RED BLOOD COUNT 3.33 10^6/uL (4.35-5.55); RED CELL DISTRIBUTION WIDTH 14.4 % (11.5-14.0); SEGMENTED NEUTROPHILS % (AUTO) 72.8 % (42-78); TOTAL CELLS COUNTED % (AUTO) 100 %; WHITE BLOOD COUNT 10.4 10^3/uL (4.0-10.5)
[2017-11-06 06:33] LABS: HEMOGLOBIN 9.9 g/dL (13.5-17.0)
[2017-11-06] MEDS ORDERED: NORMAL SALINE 1000 ML 1,000 ML IV ONE (08:39)
[2017-11-06] MEDS ORDERED: INSULIN GLARGINE,HUM.REC.ANLOG 1,000 UNIT/10 ML UNIT SUBCUT SCH (10:00)
[2017-11-06] MEDS ORDERED: (PENDING PHARMACY ID) (Carvedilol [Coreg 25 Mg Tablet] 12.5 MG) PO SCH (10:00)
[2017-11-06] MEDS ORDERED: ASPIRIN 81 MG TABLET, CHEWABLE PO SCH (10:00)
[2017-11-06] MEDS ORDERED: INSULIN GLARGINE,HUM.REC.ANLOG 300 UNIT/3 ML INSULN.PEN SUBCUT SCH (10:00)
[2017-11-06] MEDS: METOCLOPRAMIDE HCL 10 MG TABLET PO SCH ×4 (10:41→22:06)
[2017-11-06] MEDS: CARVEDILOL 12.5 MG TABLET PO SCH (10:45)
[2017-11-06] MEDS: DOCUSATE SODIUM 100 MG CAPSULE PO SCH ×2 (10:46→17:52)
[2017-11-06] MEDS: CILOSTAZOL 100 MG TABLET PO SCH ×2 (10:47→22:06)
[2017-11-06] MEDS: NA PHOS,M-B/NA PHOS,DI-BA (ADULT) 133 ML ENEMA PR SCH (10:48)
[2017-11-06] MEDS: AMLODIPINE BESYLATE 10 MG TABLET PO SCH (10:48)
[2017-11-06] MEDS: CLONIDINE HCL 0.1 MG TABLET PO SCH ×2 (10:48→22:06)
[2017-11-06] MEDS: SACUBITRIL/VALSARTAN 49 MG/51 MG TABLET PO SCH (10:48)
[2017-11-06] MEDS: INSULIN REG, HUMAN 100 UNIT/ML 3 ML VIAL (PYX) SUBCUT PRN ×2 (12:42→16:01)
[2017-11-06 16:11] LABS: ANION GAP 9 (5-19); BLOOD UREA NITROGEN 55 mg/dL (7-20); CALCIUM 8.3 mg/dL (8.4-10.2); CARBON DIOXIDE 29 mmol/L (22-30); CHLORIDE 104 mmol/L (98-107); GLUCOSE 370 mg/dL (75-110); POTASSIUM 3.7 mmol/L (3.6-5.0); SODIUM 142.4 mmol/L (137-145)
[2017-11-06] MEDS ORDERED: LACTULOSE SYRUP 20 GM/30 ML UDCUP PO ONE (18:17)
--- NOTE | 2017-11-06 18:21 | PDOC PROGRESS REPORT ---
Subjective Progress Note for:: 11/06/17 Subjective:: FLAG MORELIA THIBODEAUX is a 67 year old male with a past medical history significant for insulin-dependent diabetes mellitus, systolic CHF, chronic kidney disease, hypertension, hyperlipidemia, GERD, and CVA who was admitted she for nausea, vomiting, and hyperglycemia. The patient is seen on morning rounds. He is found sitting upright to the recliner on room air. He reports that he is feeling much better today after a very large bowel movement this morning. He tolerated his clear liquid diet well ; denies abdominal pain, nausea, vomiting, diarrhea. He is offered to advance his diet, but requests remain on clear liquids for the time being. He denies fever, chills, chest pain, palpitations, dyspnea, orthopnea, dysuria, urinary urgency, and frequency. The patient is hopeful to be discharged home soon. We discussed that his kidney function has not returned to his baseline and that I would like to provide him more IV fluids and recheck lab work this afternoon prior to letting him go home. Otherwise, the patient has no other questions or concerns. No concerns per nursing. Reason For Visit: HYPERGLYCEMIA, N/V Physical Exam Vital Signs: Temp Pulse Resp BP Pulse Ox 98.6 F 83 20 120/70 100 11/06/17 11:45 11/06/17 11:45 11/06/17 11:45 11/06/17 11:45 11/06/17 11:45 Intake & Output 11/05/17 11/06/17 11/07/17 06:59 06:59 06:59 Intake Total 1007 Output Total 200 625 Balance -200 382 Weight 73.2 kg General appearance: PRESENT: no acute distress, cooperative, thin, well- developed Head exam: PRESENT: atraumatic, normocephalic Eye exam: PRESENT: conjunctiva pink, EOMI, PERRLA. ABSENT: scleral icterus Ear exam: PRESENT: normal external ear exam Mouth exam: PRESENT: moist, tongue midline Neck exam: ABSENT: carotid bruit, JVD, lymphadenopathy, thyromegaly Respiratory exam: PRESENT: clear to auscultation nathan, symmetrical, unlabored. ABSENT: rales, rhonchi, wheezes Cardiovascular exam: PRESENT: RRR, +S1, +S2. ABSENT: diastolic murmur, rubs, systolic murmur Pulses: PRESENT: normal dorsalis pedis pul Vascular exam: PRESENT: normal capillary refill GI/Abdominal exam: PRESENT: normal bowel sounds, soft. ABSENT: distended, guarding, mass, organolmegaly, rebound, tenderness Rectal exam: PRESENT: deferred Extremities exam: PRESENT: full ROM. ABSENT: calf tenderness, clubbing, pedal edema Neurological exam: PRESENT: alert, awake, oriented to person, oriented to place , oriented to time, oriented to situation, CN II-XII grossly intact, other - Baseline speech impediment. ABSENT: motor sensory deficit Psychiatric exam: PRESENT: appropriate affect, normal mood. ABSENT: homicidal ideation, suicidal ideation Skin exam: PRESENT: dry, intact, warm. ABSENT: cyanosis, rash Results Laboratory Results: 11/06/17 04:27 11/06/17 15:45 11/06/17 11/06/17 11/06/17 01:38 04:27 04:27 WBC 10.4 RBC 3.33 L Hgb 9.9 L D Hct 27.4 L MCV 82 MCH 29.6 MCHC 35.9 RDW 14.4 H Plt Count 227 Seg Neutrophils % 72.8 Lymphocytes % 16.6 Monocytes % 7.9 Eosinophils % 2.2 Basophils % 0.5 Absolute Neutrophils 7.6 Absolute Lymphocytes 1.7 Absolute Monocytes 0.8 Absolute Eosinophils 0.2 Absolute Basophils 0.1 Sodium 145.5 H Potassium 3.9 Chloride 106 Carbon Dioxide 28 Anion Gap 12 BUN 58 H Creatinine 2.46 H Est GFR ( Amer) 32 L Est GFR (Non-Af Amer) 27 L Glucose 180 H Calcium 8.4 Stool Occult Blood POSITIVE 11/06/17 15:45 WBC RBC Hgb Hct MCV MCH MCHC RDW Plt Count Seg Neutrophils % Lymphocytes % Monocytes % Eosinophils % Basophils % Absolute Neutrophils Absolute Lymphocytes Absolute Monocytes Absolute Eosinophils Absolute Basophils Sodium 142.4 Potassium 3.7 Chloride 104 Carbon Dioxide 29 Anion Gap 9 BUN 55 H Creatinine 2.60 H Est GFR ( Amer) 30 L Est GFR (Non-Af Amer) 25 L Glucose 370 H Calcium 8.3 L Stool Occult Blood 11/05/17 14:39 Clean Catch Midstream Urine Culture - Final Mixed Urogenital Vivienne Yeast, Not Sienna Albicans Impressions: Abdomen X-Ray 11/05/17 00:00 IMPRESSION: LARGE AMOUNT OF STOOL IN THE COLON AND RECTUM CONSISTENT WITH CONSTIPATION. NO RADIOGRAPHIC EVIDENCE FOR ACUTE ABDOMINAL DISEASE. Chest X-Ray 11/05/17 12:49 IMPRESSION: NO ACUTE RADIOGRAPHIC FINDING IN THE CHEST. Assessment & Plan - Diagnosis (1) Nausea and vomiting Qualifiers: Vomiting type: unspecified Is this a current diagnosis for this admission?: Yes Plan: Resolved; likely related to constipation. Patient and family deny hematemesis, hematochezia, melena. Report of coffee- ground emesis by ED provider, however, none noted by nursing. Unfortunately, hemocult is possitive. The patient is admitted to the medical floor. He is advanced to a clear liquid diet. IV antiemetics as needed. Continue PPI. (2) Diabetes mellitus with hyperglycemia Qualifiers: Diabetes mellitus type: type 2 Diabetes mellitus retirement insulin use: with terminal carman use Qualified Code(s): E11.65 - Type 2 diabetes mellitus with hyperglycemia; Z79.4 - [facility] (current) use of insulin; Z79.4 - [facility] ( current) use of insulin; Z79.4 - [employer]erman (current) use of insulin; Z79.4 - meterman (current) use of insulin Is this a current diagnosis for this admission?: Yes Plan: The patient does have insulin-dependent diabetes; family members report that he did take his to see by 20 units this a.m. on schedule. He continues to have increasing blood sugar over the last 3-4 days; found to have a blood glucose greater than 400 in the emergency department today. The patient is currently on a clear liquid diet. We are providing his home dosed Lantus 20 units daily. Accu-Cheks before meals and at bedtime with Humalog for sliding scale coverage. (3) Acute on chronic kidney failure Qualifiers: Acute renal failure type: unspecified Chronic kidney disease stage: stage 3 (moderate) Qualified Code(s): N17.9 - Acute kidney failure, unspecified; N18.3 - Chronic kidney disease, stage 3 (moderate); N18.3 - Chronic kidney disease, stage 3 (moderate); N18.3 - Chronic kidney disease, stage 3 (moderate) Is this a current diagnosis for this admission?: Yes Plan: Worsening. Creatinine 2.34--> 1.96--> 2.46--> 2.60 The patient was admitted with acute on chronic kidney failure; patient appears to be bordering on CKD 3 (moderate) and CKD 4. Most recent EGFR is are in the low 20s. Today his initial GFR is found to be 28 with a creatinine of 2.34 which is actually near his baseline. Acute worsening is secondary to dehydration as a result of nausea and vomiting. Post-void bladder scan of 175; low suspicion for obstructive/post renal cause. We will continue to hydrate with IV fluids. Have decreased Entresto dose while attempting to correct for possible prerenal causes (pt noted to have intermittent HYPOtention with blood pressures of 90s/ 40s). Avoid nephrotoxic medications. Monitor serial chemistries. If no improvement in the morning, will consult the patient's established child caregiver private home Dr. Taylor and obtain renal u/s. (4) Chronic systolic (congestive) heart failure Is this a current diagnosis for this admission?: Yes Plan: Without exacerbation; patient is maintaining oxygen saturations on room air, has clear lung sounds, and a clear chest x-ray. We will continue his outpatient medication regiment; with Entresto dose reduction as above. We will monitor daily weights. Strict I&Os. (5) Dehydration Is this a current diagnosis for this admission?: Yes Plan: Secondary to nausea and vomiting. BUN is trending down (63--> 55) with IV fluids, however, creatinine continues to trend up. Plan as above. (6) Constipation Qualifiers: Constipation type: unspecified constipation type Qualified Code(s): K59.00 - Constipation, unspecified Is this a current diagnosis for this admission?: Yes Plan: Resolved following lactulose x1 and fleets enema. The patient reports diffuse, vague, abdominal discomfort. Unknown last bowel movement with a history of constipation. Abdominal x-ray does demonstrate a large stool load in the colon. Continue daily colace and lactulose 10 g daily. (7) GERD (gastroesophageal reflux disease) Qualifiers: Esophagitis presence: esophagitis presence not specified Qualified Code(s) : K21.9 - Gastro-esophageal reflux disease without esophagitis Is this a current diagnosis for this admission?: Yes Plan: The patient is placed on a PPI. We will continue his outpatient Reglan regiment for gastroparesis. (8) HTN (hypertension) Qualifiers: Hypertension type: essential hypertension Qualified Code(s): I10 - Essential (primary) hypertension Is this a current diagnosis for this admission?: Yes Plan: We will continue the patient's outpatient medication regimen. (9) Tobacco abuse Is this a current diagnosis for this admission?: Yes Plan: Smoking cessation is encouraged. Nicotine replacement therapies are offered. (10) Occult blood in stools Is this a current diagnosis for this admission?: Yes Plan: Report of coffee-ground emesis per emergency department provider. Although, this was denied by the patient and family members, he was found to have positive stools. Patient has a history of GERD and gastroparesis. Hemoglobin is noted to have dropped 3 g overnight (patient has received 3L IVF). Will ask GI to evaluate for upper GI bleed. Continue PPI. (11) Anemia Qualifiers: Anemia type: unspecified type Qualified Code(s): D64.9 - Anemia, unspecified Is this a current diagnosis for this admission?: Yes Plan: Acute on chronic anemia secondary to chronic kidney disease stage III; now worsened due to hemodilution versus upper GI bleed. Hemoglobin dropped from 13.1-9.9 overnight. The patient did receive 3 L of IV fluids which may account for the decrease. However, he has a positive guaiac and report of coffee-ground emesis. We will ask GI to evaluate for upper GI bleed. We will type and screen in anticipation of possible need of blood products. Continue PPI therapy. Will monitor closely. - Time Time Spent with patient: 35 or more minutes Medications reviewed and adjusted accordingly: Yes - Inpatient Certification Based on my medical assessment, after consideration of the patient's comorbidities, presenting symptoms, or acuity I expect that the services needed warrant INPATIENT care.: Yes I certify that my determination is in accordance with my understanding of Medicare's requirements for reasonable and necessary INPATIENT services [42 CFR 412.3e].: Yes Medical Necessity: Need Close Monitoring Due to Risk of Patient Decompensation, Need For IV Fluids, Risk of Diagnosis Which Will Require Inpatient Eval/Care/ Monitoring
[2017-11-06 19:11] LABS: HEMATOCRIT 26.9 % (37.9-51.0); HEMOGLOBIN 9.4 g/dL (13.5-17.0); MEAN CORPUSCULAR HEMOGLOBIN 29.3 pg (27.0-33.4); MEAN CORPUSCULAR VOLUME 84 fl (80-97); PLATELET COUNT 217 10^3/uL (150-450); RED BLOOD COUNT 3.22 10^6/uL (4.35-5.55); WHITE BLOOD COUNT 7.4 10^3/uL (4.0-10.5)
[2017-11-06] MEDS ORDERED: SACUBITRIL/VALSARTAN 24 MG/26 MG TABLET PO SCH (22:00)
[2017-11-07 04:35] LABS: HEMATOCRIT 22.8 % (37.9-51.0); MEAN CORPUSCULAR HEMOGLOBIN 28.9 pg (27.0-33.4); MEAN CORPUSCULAR VOLUME 83 fl (80-97); PLATELET COUNT 204 10^3/uL (150-450); RED BLOOD COUNT 2.75 10^6/uL (4.35-5.55); RED CELL DISTRIBUTION WIDTH 14.3 % (11.5-14.0); WHITE BLOOD COUNT 6.5 10^3/uL (4.0-10.5)
[2017-11-07 04:54] LABS: ANION GAP 10 (5-19); BLOOD UREA NITROGEN 51 mg/dL (7-20); CALCIUM 7.9 mg/dL (8.4-10.2); CARBON DIOXIDE 25 mmol/L (22-30); CHLORIDE 107 mmol/L (98-107); GLUCOSE 154 mg/dL (75-110); POTASSIUM 3.7 mmol/L (3.6-5.0); SODIUM 141.5 mmol/L (137-145)
[2017-11-07] MEDS: LANSOPRAZOLE 15 MG TAB.RAP.DR PO SCH (06:07)
[2017-11-07] MEDS: NORMAL SALINE 1000 ML 1,000 ML IV PRN ×2 (06:07→12:59)
[2017-11-07] MEDS ORDERED: INSULIN GLARGINE,HUM.REC.ANLOG 300 UNIT/3 ML INSULN.PEN SUBCUT SCH ×2 (10:00→20:30)
[2017-11-07] MEDS ORDERED: PANTOPRAZOLE SODIUM 80 MG in NORMAL SALINE 100 ML IV ONE (10:00)
[2017-11-07] MEDS: AMLODIPINE BESYLATE 10 MG TABLET PO SCH (11:52)
[2017-11-07] MEDS: CARVEDILOL 12.5 MG TABLET PO SCH (11:52)
[2017-11-07] MEDS: DOCUSATE SODIUM 100 MG CAPSULE PO SCH ×2 (11:53→17:44)
[2017-11-07] MEDS: CILOSTAZOL 100 MG TABLET PO SCH ×2 (11:53→22:32)
[2017-11-07] MEDS: LACTULOSE SYRUP 20 GM/30 ML UDCUP PO SCH (11:53)
[2017-11-07] MEDS: CLONIDINE HCL 0.1 MG TABLET PO SCH ×2 (11:53→22:33)
[2017-11-07] MEDS: METOCLOPRAMIDE HCL 10 MG TABLET PO SCH ×4 (11:54→22:34)
[2017-11-07] MEDS: INSULIN REG, HUMAN 100 UNIT/ML 3 ML VIAL (PYX) SUBCUT PRN ×2 (11:58→17:43)
[2017-11-07] MEDS: NORMAL SALINE 100 ML with PANTOPRAZOLE SODIUM 80 MG IV PRN ×2 (12:05)
[2017-11-07 15:02] LABS: HEMATOCRIT 23.5 % (37.9-51.0); MEAN CORPUSCULAR HEMOGLOBIN 28.8 pg (27.0-33.4); MEAN CORPUSCULAR HGB CONC 34.2 g/dL (32.0-36.0); MEAN CORPUSCULAR VOLUME 84 fl (80-97); PLATELET COUNT 202 10^3/uL (150-450); RED BLOOD COUNT 2.79 10^6/uL (4.35-5.55); RED CELL DISTRIBUTION WIDTH 14.2 % (11.5-14.0); WHITE BLOOD COUNT 7.1 10^3/uL (4.0-10.5)
--- NOTE | 2017-11-07 20:36 | PDOC PROGRESS REPORT ---
Subjective Progress Note for:: 11/07/17 Subjective:: FLAG MORELIA THIBODEAUX is a 67 year old male with a past medical history significant for insulin-dependent diabetes mellitus, systolic CHF, chronic kidney disease, hypertension, hyperlipidemia, GERD, and CVA who was admitted she for nausea, vomiting, and hyperglycemia. The patient is seen on morning rounds. He is found sitting upright to the recliner on room air. He reports that he is feeling much better today and quickly becomes agitated when I ask him about his abdominal pain, nausea, vomiting, and high glucose. The patient adamantly denies ever having had abdominal pain or nausea/vomiting. When asked why he presented to the emergency department, the patient instructs me to "mind your own business." It is unclear whether the patient is truly confused or simply angry at his continued admission as nursing reports that he has had labile mood and been quite agitated, but otherwise oriented and appropriate with them. Per nursing, there has been no complaint of abdominal discomfort, nausea, vomiting, increased stools, melena, or hematochezia. Reason For Visit: ACUTE ON CHRONIC RENAL FAILURE N/V DEHYDRATION Physical Exam Vital Signs: Temp Pulse Resp BP Pulse Ox 98.4 F 56 L 18 92/57 L 100 11/07/17 16:28 11/07/17 16:28 11/07/17 16:28 11/07/17 16:28 11/07/17 16:28 Intake & Output 11/06/17 11/07/17 11/08/17 06:59 06:59 06:59 Intake Total 2627 1060 Output Total 300 500 Balance 2327 560 Weight 64.1 kg General appearance: PRESENT: no acute distress, thin, well-developed, well- nourished. ABSENT: cooperative Head exam: PRESENT: atraumatic, normocephalic Eye exam: PRESENT: conjunctiva pink, EOMI, PERRLA. ABSENT: scleral icterus Ear exam: PRESENT: normal external ear exam Mouth exam: PRESENT: moist, tongue midline Neck exam: ABSENT: carotid bruit, JVD, lymphadenopathy, thyromegaly Respiratory exam: PRESENT: clear to auscultation nathan, symmetrical, unlabored. ABSENT: rales, rhonchi, wheezes Cardiovascular exam: PRESENT: RRR. ABSENT: diastolic murmur, rubs, systolic murmur Pulses: PRESENT: normal dorsalis pedis pul Vascular exam: PRESENT: normal capillary refill GI/Abdominal exam: PRESENT: normal bowel sounds, soft. ABSENT: distended, guarding, mass, organolmegaly, rebound, tenderness Rectal exam: PRESENT: deferred Extremities exam: PRESENT: full ROM. ABSENT: calf tenderness, clubbing, pedal edema Neurological exam: PRESENT: alert, awake, oriented to person, oriented to place , oriented to time, oriented to situation, CN II-XII grossly intact. ABSENT: motor sensory deficit Psychiatric exam: PRESENT: agitated, unusual affect. ABSENT: homicidal ideation , suicidal ideation Skin exam: PRESENT: dry, intact, warm. ABSENT: cyanosis, rash Results Laboratory Results: 11/07/17 14:49 11/07/17 04:20 11/07/17 11/07/17 11/07/17 04:20 04:20 14:49 WBC 6.5 7.1 RBC 2.75 L 2.79 L Hgb 8.0 L 8.0 L Hct 22.8 L 23.5 L MCV 83 84 MCH 28.9 28.8 MCHC 35.0 34.2 RDW 14.3 H 14.2 H Plt Count 204 202 Sodium 141.5 Potassium 3.7 Chloride 107 Carbon Dioxide 25 Anion Gap 10 BUN 51 H Creatinine 2.40 H Est GFR ( Amer) 33 L Est GFR (Non-Af Amer) 27 L Glucose 154 H Calcium 7.9 L Impressions: Abdomen X-Ray 11/05/17 00:00 IMPRESSION: LARGE AMOUNT OF STOOL IN THE COLON AND RECTUM CONSISTENT WITH CONSTIPATION. NO RADIOGRAPHIC EVIDENCE FOR ACUTE ABDOMINAL DISEASE. Chest X-Ray 11/05/17 12:49 IMPRESSION: NO ACUTE RADIOGRAPHIC FINDING IN THE CHEST. Assessment & Plan - Diagnosis (1) Nausea and vomiting Qualifiers: Vomiting type: unspecified Is this a current diagnosis for this admission?: Yes Plan: Resolved; likely related to constipation. Patient and family deny hematemesis, hematochezia, melena. Report of coffee- ground emesis by ED provider, however, none noted by nursing. Unfortunately, hemocult is possitive. The patient is admitted to the medical floor. He is on a clear liquid diet. IV antiemetics as needed. (2) Diabetes mellitus with hyperglycemia Qualifiers: Diabetes mellitus type: type 2 Diabetes mellitus fci insulin use: with fci use Qualified Code(s): E11.65 - Type 2 diabetes mellitus with hyperglycemia; Z79.4 - computer terminal operator (current) use of insulin; Z79.4 - computer terminal operator ( current) use of insulin; Z79.4 - retirement (current) use of insulin; Z79.4 - retirement (current) use of insulin Is this a current diagnosis for this admission?: Yes Plan: The patient does have insulin-dependent diabetes; family members report that he did take his to see by 20 units this a.m. on schedule. He continues to have increasing blood sugar over the last 3-4 days; found to have a blood glucose greater than 400 in the emergency department today. The patient is currently on a clear liquid diet. Multiple blood sugars >400; will increase Lantus to 22 units daily. Accu-Cheks before meals and at bedtime with Humalog for sliding scale coverage. (3) Acute on chronic kidney failure Qualifiers: Acute renal failure type: unspecified Chronic kidney disease stage: stage 3 (moderate) Qualified Code(s): N17.9 - Acute kidney failure, unspecified; N18.3 - Chronic kidney disease, stage 3 (moderate); N18.3 - Chronic kidney disease, stage 3 (moderate); N18.3 - Chronic kidney disease, stage 3 (moderate) Is this a current diagnosis for this admission?: Yes Plan: Improved following discontinuation of Entresto. Creatinine 2.34--> 1.96--> 2.46 --> 2.60--> 2.40 (baseline 2.10) The patient was admitted with acute on chronic kidney failure; patient appears to be bordering on CKD 3 (moderate) and CKD 4. Most recent EGFR is are in the low 20s. Post-void bladder scan of 175; low suspicion for obstructive/post renal cause. We will continue to hydrate with IV fluids. Discontinued Entresto Avoid nephrotoxic medications. Monitor serial chemistries. (4) Chronic systolic (congestive) heart failure Is this a current diagnosis for this admission?: Yes Plan: Without exacerbation; patient is maintaining oxygen saturations on room air, has clear lung sounds, and a clear chest x-ray. We will continue his outpatient medication regiment; with Entresto discontinued as above. Weight and I&Os stable thus far; will need to consider addition of p.o. furosemide with close outpatient follow-up. We will monitor daily weights. Strict I&Os. (5) Dehydration Is this a current diagnosis for this admission?: Yes Plan: Improved; secondary to nausea and vomiting. BUN is trending down (63--> 55--> 51) with IV fluids Plan as above. (6) Constipation Qualifiers: Constipation type: unspecified constipation type Qualified Code(s): K59.00 - Constipation, unspecified Is this a current diagnosis for this admission?: Yes Plan: Resolved following lactulose x1 and fleets enema. The patient reports diffuse, vague, abdominal discomfort. Unknown last bowel movement with a history of constipation. Abdominal x-ray does demonstrate a large stool load in the colon. Continue daily colace and lactulose 10 g daily. (7) GERD (gastroesophageal reflux disease) Qualifiers: Esophagitis presence: esophagitis presence not specified Qualified Code(s) : K21.9 - Gastro-esophageal reflux disease without esophagitis Is this a current diagnosis for this admission?: Yes Plan: The patient is placed on a Protonix drip. We will continue his outpatient Reglan regiment for gastroparesis. (8) HTN (hypertension) Qualifiers: Hypertension type: essential hypertension Qualified Code(s): I10 - Essential (primary) hypertension Is this a current diagnosis for this admission?: Yes Plan: We will continue the patient's outpatient medication regimen. (9) Tobacco abuse Is this a current diagnosis for this admission?: Yes Plan: Smoking cessation is encouraged. Nicotine replacement therapies are offered. (10) Occult blood in stools Is this a current diagnosis for this admission?: Yes Plan: Report of coffee-ground emesis per emergency department provider. Although, this was denied by the patient and family members, he was found to have positive stools. Patient has a history of GERD and gastroparesis. Hemoglobin is noted to have dropped from 13.1-8.0; has been stable at 8.0 throughout the day. LFTs acceptable Unfortunately we do not have GI or surgical service and provide endoscopy. Patient is placed on a Protonix drip. We will continue to monitor serial CBCs; if hemoglobin stabilizes and the patient has no overt signs of active GI bleeding, will plan on discharge with outpatient follow-up. Plan was discussed with Dr. Vegas. (11) Anemia Qualifiers: Anemia type: unspecified type Qualified Code(s): D64.9 - Anemia, unspecified Is this a current diagnosis for this admission?: Yes Plan: Acute on chronic anemia secondary to chronic kidney disease stage III; now worsened due to hemodilution versus upper GI bleed. Hemoglobin dropped from 13.1 to 8.0 and appears to have stabilized. Plan as above. - Time Time Spent with patient: 15-24 minutes Medications reviewed and adjusted accordingly: Yes Anticipated discharge: Home
[2017-11-08] MEDS: NORMAL SALINE 100 ML with PANTOPRAZOLE SODIUM 80 MG IV PRN ×2 (01:16)
[2017-11-08] MEDS: NORMAL SALINE 1000 ML 1,000 ML IV PRN (01:16)
[2017-11-08 07:22] LABS: HEMATOCRIT 24.2 % (37.9-51.0); HEMOGLOBIN 8.4 g/dL (13.5-17.0); MEAN CORPUSCULAR HEMOGLOBIN 28.9 pg (27.0-33.4); MEAN CORPUSCULAR HGB CONC 34.5 g/dL (32.0-36.0); MEAN CORPUSCULAR VOLUME 84 fl (80-97); PLATELET COUNT 205 10^3/uL (150-450); RED BLOOD COUNT 2.89 10^6/uL (4.35-5.55); RED CELL DISTRIBUTION WIDTH 14.3 % (11.5-14.0); WHITE BLOOD COUNT 9.1 10^3/uL (4.0-10.5)
[2017-11-08 07:47] LABS: ANION GAP 10 (5-19); BLOOD UREA NITROGEN 37 mg/dL (7-20); CALCIUM 8.1 mg/dL (8.4-10.2); CARBON DIOXIDE 25 mmol/L (22-30); CHLORIDE 108 mmol/L (98-107); GLUCOSE 169 mg/dL (75-110); POTASSIUM 3.5 mmol/L (3.6-5.0); SODIUM 143.2 mmol/L (137-145)
[2017-11-08] MEDS: METOCLOPRAMIDE HCL 10 MG TABLET PO SCH ×2 (08:04→10:43)
[2017-11-08] MEDS: INSULIN REG, HUMAN 100 UNIT/ML 3 ML VIAL (PYX) SUBCUT PRN ×2 (08:04→12:32)
[2017-11-08] MEDS: LACTULOSE SYRUP 20 GM/30 ML UDCUP PO SCH (10:41)
[2017-11-08] MEDS: DOCUSATE SODIUM 100 MG CAPSULE PO SCH (10:43)
[2017-11-08] MEDS: AMLODIPINE BESYLATE 10 MG TABLET PO SCH (10:43)
[2017-11-08] MEDS: CARVEDILOL 12.5 MG TABLET PO SCH (10:47)
[2017-11-08] MEDS: CLONIDINE HCL 0.1 MG TABLET PO SCH (10:47)
[2017-11-08] MEDS: CILOSTAZOL 100 MG TABLET PO SCH (10:47)
[2017-11-08 16:14] VITALS: BP 109/60
--- NOTE | 2017-11-11 12:18 | PDOC DISCHARGE SUMMARY ---
General - Admit/Disc Date/PCP Admission Date/Primary Care Provider: 11/06/17 16:25 Discharge Date: 11/08/17 - Discharge Diagnosis (1) Nausea and vomiting Is this a current diagnosis for this admission?: Yes Summary: Resolved. The patient was treated with Lactulose and Fleets enema resulting in multiple large bowel movements and complete resolution of nausea and vomiting. (2) Diabetes mellitus with hyperglycemia Is this a current diagnosis for this admission?: Yes Summary: HbA1C 12.1% The patient was placed on a consistent carb diet. HE met with both the registered nurses and public health educator. His home dose lantus was increased to 22 units daily. He was provided Humalog for sliding scale coverage. At discharge, the patient was provided prescriptions for Lantus and Novolog. Arrangements were made for the patient to recieve home health nursing for disease and medication management and education. The patient will require close follow up to attain appropriate glucose control. (3) Acute on chronic kidney failure Is this a current diagnosis for this admission?: Yes Summary: Resolved with IVF and holding Entresto. Creatinine 2.34--> 1.96--> 2.46--> 2.60 --> 2.40--> 1.70 (baseline 2.10) The patient was admitted with acute on chronic kidney failure; patient appears to be bordering between CKD 3 (moderate) and CKD 4. Most recent EGFR is are in the low 20s. Post-void bladder scan of 175; low suspicion for obstructive/post renal cause. At discharge, the patient is provided a prescription for reduced dose Entresto. He is educated on the importance of monitoring his daily weights and reporting any gain >2 lbs immediately to avoid CHF exacerbation. He has a follow up appointment already scheduled with his hris specialist at the end of the month. We also discussed that he will need lab work again within the week to check his kidney function while on the lower dose Entresto. The patient is instructed to follow up with his primary care provider within 1 week. The patient's family believes he may be established with Dr. Taylor; would recommend follow up visit within the next 4-6 weeks to establish care if not already followed by nephrology. (4) Chronic systolic (congestive) heart failure Is this a current diagnosis for this admission?: Yes Summary: Without exacerbation; patient is maintaining oxygen saturations on room air, has clear lung sounds, and a clear chest x-ray. As above: At discharge, the patient is provided a prescription for reduced dose Entresto. He is educated on the importance of monitoring his daily weights and reporting any gain >2 lbs immediately to avoid CHF exacerbation. He has a follow up appointment already scheduled with his hris specialist at the end of the month. We also discussed that he will need lab work again within the week to check his kidney function while on the lower dose Entresto. Arrangements have also been made for the patient to receive home health nursing for disease and medication management and monitoring. (5) Dehydration Is this a current diagnosis for this admission?: Yes Summary: Resolved. (6) Constipation Is this a current diagnosis for this admission?: Yes Summary: Resolved. The patient is provided prescriptions for Colace and miralax. He expressed interest in use of Fleets at home for intermittent constipation. He was advised that Fleets was available over the counter and instructed that if he required Fleets enema more than once weekly, he should notify his Primary Care Provider so that a better bowel regiment could be arranged. (7) GERD (gastroesophageal reflux disease) Is this a current diagnosis for this admission?: Yes (8) HTN (hypertension) Is this a current diagnosis for this admission?: Yes (9) Tobacco abuse Is this a current diagnosis for this admission?: Yes Summary: Smoking cessation was encouraged; Nicoderm patches were prescribed at discharge. (10) Occult blood in stools Is this a current diagnosis for this admission?: Yes Summary: Likely, GI bleeding was r/t esophagitis/gastritis as the patient had 4 days of vomiting prior to admission. Report of coffee-ground emesis per emergency department provider. Although, this was denied by the patient and family members, he was found to have positive stools. Patient has a history of GERD and gastroparesis. Hemoglobin is noted to have trended from 13.1-8.0; though he did recieve ~ 5L if IVF. LFTs acceptable Unfortunately we do not have GI or surgical service to provide endoscopy for several days. The patient did not wish to stay until an evaluation could be arranged. However, he was agreeable to staying an additional 24 hours to monitor for further blood loss. His hemoglobin stabilized (8.0--> 8.0--> 8.4) and the patient had no further overt signs of active GI bleeding. The patient again requested to be discharged home; we discussed the importance of returning to the emergency department for any evidence of GI blood loss ( coffee-ground emesis, melena, dizziness/weakness, dyspnea, palpitations). The patient is instructed to follow up with his primary care provider within 1 week. The patient should also consider follow up with GI for further evaluation. (11) Anemia Is this a current diagnosis for this admission?: Yes Summary: Acute on chronic anemia secondary to chronic kidney disease stage III; now worsened due to hemodilution versus upper GI bleed. Hemoglobin dropped from 13.1 to 8.0 and appears to have stabilized; 8.0-->8.0-- 8.4 - Additional Information Resuscitation Status: Do Not Resuscitate Discharge Diet: Cardiac, Diabetic Discharge Activity: Activity As Tolerated, Balance Activity w/Rest, Weigh Daily Prescriptions: Docusate Sodium [Colace 100 mg Capsule] 100 mg PO BID #60 capsule Insulin Glargine,Hum.rec.anlog [Lantus Insulin 100 Unit/mL] 22 unit SUBCUT DAILY #1 insuln.pen Insulin Aspart [Novolog Flexpen] 0 unit SUBCUT .SLD SCALE #1 pen Metoclopramide HCl [Reglan 10 mg Tablet] 5 mg PO ACHS #120 tablet Nicotine [Nicoderm 14 mg/24 Hr Transdermal Patch] 1 each TD DAILYP PRN #30 patch.td24 PRN Reason: Pen Needle, Diabetic [Pen Needle] 1 each MC 5XD #150 dis.needle Sacubitril/Valsartan [Entresto 24 mg-26 mg Tablet] 1 each PO BID #60 tablet Home Medications: Amlodipine Besylate [Norvasc 10 mg Tablet] 10 mg PO DAILY 04/23/17 Carvedilol [Coreg 25 mg Tablet] 12.5 mg PO DAILY 04/23/17 Aspirin [Aspirin 81 mg Chewable Tablet] 81 mg PO DAILY 30 Days #0 tab.chew 05/01 Cilostazol [Pletal 100 mg Tablet] 50 mg PO BID tablet 05/01/17 Docusate Sodium [Colace 100 mg Capsule] 100 mg PO BID capsule 05/01/17 Polyethylene Glycol 3350 [Miralax Powder 17 gm/Packet] 17 gm PO DAILY powd.pack 05/01/17 Clonidine HCl [Catapres 0.1 mg Tablet] 0.1 mg PO Q12 11/05/17 Acetaminophen [Tylenol 325 mg Tablet] 650 mg PO Q4HP PRN tablet 11/08/17 Docusate Sodium [Colace 100 mg Capsule] 100 mg PO BID #60 capsule 11/08/17 Insulin Aspart [Novolog Flexpen] 0 unit SUBCUT .SLD SCALE #1 pen 11/08/17 Insulin Glargine,Hum.rec.anlog [Lantus Insulin 100 Unit/mL] 22 unit SUBCUT DAILY #1 insuln.pen 11/08/17 Metoclopramide HCl [Reglan 10 mg Tablet] 5 mg PO ACHS #120 tablet 11/08/17 Nicotine [Nicoderm 14 mg/24 Hr Transdermal Patch] 1 each TD DAILYP PRN #30 patch.td24 11/08/17 Pen Needle, Diabetic [Pen Needle] 1 each MC 5XD #150 dis.needle 11/08/17 Sacubitril/Valsartan [Entresto 24 mg-26 mg Tablet] 1 each PO BID #60 tablet Pantoprazole Sodium [Protonix] 20 mg PO BID #60 tablet. 11/11/17 History of Present Illness History of Present Illness: FLAG MORELIA THIBODEAUX is a 67 year old male with a past medical history significant for insulin-dependent diabetes mellitus, systolic CHF, chronic kidney disease, hypertension, hyperlipidemia, GERD, and CVA who presents to the emergency department today with complaint of 3 days of intermittent nausea with vomiting and diffuse abdominal discomfort. Most of the HPI is obtained from the patient' s family members. They report that the patient began vomiting 3 days ago, improved and was able to drink fluids (primarily Rootbeer) and eat hotdog on the , with recurrence of his nausea and vomiting occurring late on the and continuing through today. They report that the patient has continued to administer his insulin but with continued worsening of hyperglycemia. Both the patient and family members deny coffee-ground emesis, saray blood in emesis, melena, and hematochezia; they do comment that his emesis is dark brown in nature but again relates this to copious amounts of tea and root beer. The patient is noted to have a speech impediment, however, family members report that this is typical when his blood sugar is elevated. Evaluation in the emergency department reveals a normal CBC, VBG, acute worsening of his chronic renal failure, hyperglycemia with a glucose of 478, and a normal lipase. Chest x-ray was benign. The patient was provided 4 units of regular insulin IV and then placed on an insulin drip at 4 U/h. He is referred to the hospital service for admission and management of nausea and vomiting with hyperglycemia. Physical Exam Vital Signs: Temp Pulse Resp BP Pulse Ox 98.4 F 77 18 109/60 100 11/08/17 16:00 11/08/17 16:00 11/08/17 16:00 11/08/17 16:00 11/08/17 16:00 General appearance: PRESENT: no acute distress, thin, well-developed Head exam: PRESENT: atraumatic, normocephalic Eye exam: PRESENT: conjunctiva pink, EOMI, PERRLA. ABSENT: scleral icterus Ear exam: PRESENT: normal external ear exam Mouth exam: PRESENT: moist, tongue midline Neck exam: ABSENT: carotid bruit, JVD, lymphadenopathy, thyromegaly Respiratory exam: PRESENT: clear to auscultation nathan. ABSENT: rales, rhonchi, wheezes Cardiovascular exam: PRESENT: RRR. ABSENT: diastolic murmur, rubs, systolic murmur Pulses: PRESENT: normal dorsalis pedis pul Vascular exam: PRESENT: normal capillary refill GI/Abdominal exam: PRESENT: normal bowel sounds, soft. ABSENT: distended, guarding, mass, organolmegaly, rebound, tenderness Rectal exam: PRESENT: deferred Extremities exam: PRESENT: full ROM. ABSENT: calf tenderness, clubbing, pedal edema Neurological exam: PRESENT: alert, awake, oriented to person, oriented to place , oriented to time, oriented to situation, CN II-XII grossly intact. ABSENT: motor sensory deficit Psychiatric exam: PRESENT: normal mood, unusual affect. ABSENT: homicidal ideation, suicidal ideation Skin exam: PRESENT: dry, intact, warm. ABSENT: cyanosis, rash Results Laboratory Results: 11/08/17 06:47 11/08/17 06:47 Impressions: Abdomen X-Ray 11/05/17 00:00 IMPRESSION: LARGE AMOUNT OF STOOL IN THE COLON AND RECTUM CONSISTENT WITH CONSTIPATION. NO RADIOGRAPHIC EVIDENCE FOR ACUTE ABDOMINAL DISEASE. Chest X-Ray 11/05/17 12:49 IMPRESSION: NO ACUTE RADIOGRAPHIC FINDING IN THE CHEST. Qualifiers - * PATIENT BEING DISCHARGED WITH ANY OF THE FOLLOWING DIAGNOSIS: No Plan Discharge Plan: Follow-up with primary care provider within 1 week; recommend repeat CBC and BMP at follow up appointment. Follow-up with hris specialist as scheduled next week; Entresto was held while inpatient secondary to Acute Renal Failure. PT was provided a prescription for reduced Entresto to resume at discharge and instructed to monitor weight closely and report weight gain of >2 lbs immediately. Recommend follow-up visit with GI for further evaluation. Return to the Emergency Department immediately for signs of GI bleeding.
== END 2017-11-08 16:26 | disposition home health service (06) | DRG 683 ==
LOC: ER 12:04 → EH 14:29 → INTOOBSV 14:29 → 5 16:21 → INTOOBSV 16:25 → OBSVTOIN 16:25
PROVIDERS: ADMIT Internal Medicine; ATTEND Internal Medicine
DX: N17.9 Acute kidney failure, unspecified (principal); I50.22 Chronic systolic (congestive) heart failure; I13.0 Hypertensive heart and chronic kidney disease with heart failure and stage 1 through stage 4 chronic kidney disease, or unspecified chronic kidney disease; E86.0 Dehydration; E11.65 Type 2 diabetes mellitus with hyperglycemia; N18.3 Chronic kidney disease, stage 3 (moderate); Z66 Do not resuscitate; E11.22 Type 2 diabetes mellitus with diabetic chronic kidney disease; K59.00 Constipation, unspecified; K21.9 Gastro-esophageal reflux disease without esophagitis; F17.210 Nicotine dependence, cigarettes, uncomplicated; R19.5 Other fecal abnormalities; D63.1 Anemia in chronic kidney disease; M19.90 Unspecified osteoarthritis, unspecified site; E78.00 Pure hypercholesterolemia, unspecified; Z88.0 Allergy status to penicillin; Z79.899 Other long term (current) drug therapy; Z79.4 Long term (current) use of insulin; Z86.73 Personal history of transient ischemic attack (TIA), and cerebral infarction without residual deficits; Z86.14 Personal history of Methicillin resistant Staphylococcus aureus infection; Z60.2 Problems related to living alone; Z80.9 Family history of malignant neoplasm, unspecified; Z83.3 Family history of diabetes mellitus; Z82.49 Family history of ischemic heart disease and other diseases of the circulatory system
CPT/HCPCS: 36415; 71045; 74019; 80048; 80053; 81001; 82272; 82803; 82962; 83036; 83690; 85025; 85027; 86850; 86900; 86901; 87086; 93005; 93010; 96360; 99285; G0378; G8978-GP; G8979-GP; G8980-GP; G8987-GO; G8988-GO; G8989-GO; J1644; J1815; J3490; J7030; S0119; S0164

== ENCOUNTER 2017-11-12 14:17 | Emergency (ER) | payer MEDICARE ==
[2017-11-12] MEDS ORDERED: METOCLOPRAMIDE HCL ORAL SOLN 10 MG/10 ML UDCUP PO ONE (15:43)
[2017-11-12] MEDS ORDERED: ONDANSETRON HCL INJ/PF 4 MG/2 ML SDV IV ONE (15:43)
[2017-11-12] MEDS ORDERED: NORMAL SALINE 1000 ML 1,000 ML IV ONE (15:45)
[2017-11-12] MEDS ORDERED: NORMAL SALINE 1000 ML 1,000 ML IV PRN (15:45)
--- NOTE | 2017-11-12 15:46 | ER Document Report ---
ED Medical Screen (RME) - General Chief Complaint: Vomiting Stated Complaint: VOMITING Time Seen by Provider: 11/12/17 15:43 Notes: 67 years old male with diabetes, possibly diabetic gastropathy, was discharged from the hospital 5 days ago. Presented with intractable vomiting and dizzy lightheaded. He appears to0 msick to be further triaged here. TRAVEL OUTSIDE OF THE [place] IN LAST 30 DAYS: No - Related Data Allergies/Adverse Reactions: Penicillins Allergy (Intermediate, Verified 11/12/17 14:19) swelling Past Medical History - Social History Chew tobacco use (# tins/day): No Frequency of alcohol use: None Drug Abuse: None - Past Medical History Cardiac Medical History: Reports: Hx Congestive Heart Failure - Chronic systolic , Hx Hypercholesterolemia, Hx Hypertension Denies: Hx Coronary Artery Disease, Hx Heart Attack Pulmonary Medical History: Denies: Hx Asthma, Hx Bronchitis, Hx COPD, Hx Pneumonia, Hx Tuberculosis Neurological Medical History: Denies: Hx Cerebrovascular Accident, Hx Seizures Endocrine Medical History: Reports: Hx Diabetes Mellitus Type 1, Hx Diabetes Mellitus Type 2. Denies: Hx Hypothyroidism Renal/ Medical History: Reports: Hx Renal Insufficiency. Denies: Hx Peritoneal Dialysis GI Medical History: Reports: Hx Gastroesophageal Reflux Disease Musculoskeltal Medical History: Reports Hx Arthritis Psychiatric Medical History: Denies: Hx Depression Infectious Medical History: Reports: Hx MRSA Past Surgical History: Reports: Hx Internal Defibrillator - With removal, Hx Orthopedic Surgery. Denies: Hx Pacemaker - Immunizations Hx Diphtheria, Pertussis, Tetanus Vaccination: Yes History of Influenza Vaccine for 01/2017 - 06/2017 Season: Yes Physical Exam - Vital signs Vitals: Temp Pulse Resp BP Pulse Ox 98.3 F 98 16 143/86 H 99 11/12/17 14:29 11/12/17 14:29 11/12/17 14:29 11/12/17 14:29 11/12/17 14:29 Course - Vital Signs Vital signs: Temp Pulse Resp BP Pulse Ox 98.3 F 98 16 143/86 H 99 11/12/17 14:29 11/12/17 14:29 11/12/17 14:29 11/12/17 14:29 11/12/17 14:29
[2017-11-12] MEDS ORDERED: METOCLOPRAMIDE HCL INJ/PF 10 MG/2 ML SDV ONE (15:49)
[2017-11-12] MEDS ORDERED: ONDANSETRON 4 MG TAB.RAPDIS PO ONE (16:03)
[2017-11-12] MEDS ORDERED: METOCLOPRAMIDE HCL INJ/PF 10 MG/2 ML SDV IV ONE (16:13)
--- NOTE | 2017-11-12 16:18 | ER Document Report ---
ED GI/ - General Chief Complaint: Vomiting Stated Complaint: VOMITING Time Seen by Provider: 11/12/17 15:43 Notes: The patient is a 67-year-old male, past medical history poorly controlled diabetes, gastroparesis, CKD, presents with 1 day of nausea, vomiting and epigastric abdominal pain. He also has not had a bowel movement for the past 5 days. He was admitted to the hospital last week for similar symptoms and his dehydration and vomiting was attributed to gastroparesis and constipation. Most history is obtained from his family members. TRAVEL OUTSIDE OF THE [place] IN LAST 30 DAYS: No - Related Data Allergies/Adverse Reactions: Penicillins Allergy (Intermediate, Verified 11/12/17 14:19) swelling Past Medical History - General Information source: Patient - Social History Smoking Status: Current Every Day Smoker Chew tobacco use (# tins/day): No Frequency of alcohol use: None Drug Abuse: None Family History: Reviewed & Not Pertinent, CAD, DM, Malignancy Patient has suicidal ideation: No Patient has homicidal ideation: No - Past Medical History Cardiac Medical History: Reports: Hx Congestive Heart Failure - Chronic systolic , Hx Hypercholesterolemia, Hx Hypertension Denies: Hx Coronary Artery Disease, Hx Heart Attack Pulmonary Medical History: Denies: Hx Asthma, Hx Bronchitis, Hx COPD, Hx Pneumonia, Hx Tuberculosis Neurological Medical History: Denies: Hx Cerebrovascular Accident, Hx Seizures Endocrine Medical History: Reports: Hx Diabetes Mellitus Type 1, Hx Diabetes Mellitus Type 2. Denies: Hx Hypothyroidism Renal/ Medical History: Reports: Hx Renal Insufficiency. Denies: Hx Peritoneal Dialysis GI Medical History: Reports: Hx Gastroesophageal Reflux Disease Musculoskeletal Medical History: Reports Hx Arthritis Psychiatric Medical History: Denies: Hx Depression Infectious Medical History: Reports: Hx MRSA Past Surgical History: Reports: Hx Internal Defibrillator - With removal, Hx Orthopedic Surgery. Denies: Hx Pacemaker - Immunizations Hx Diphtheria, Pertussis, Tetanus Vaccination: Yes Hx Pneumococcal Vaccination: 01/19/11 Review of Systems - Review of Systems Notes: REVIEW OF SYSTEMS: CONSTITUTIONAL: -fevers, -chills EENT: -eye pain, -difficulty swallowing, -nasal congestion CARDIOVASCULAR: -chest pain, -syncope. RESPIRATORY: -cough, -SOB GASTROINTESTINAL: +epigastric abdominal pain, +nausea, +vomiting, +constipation , -diarrhea GENITOURINARY: -dysuria, -hematuria MUSCULOSKELETAL: -back pain, -neck pain SKIN: -rash or skin lesions. HEMATOLOGIC: -easy bruising or bleeding. LYMPHATIC: -swollen, enlarged glands. NEUROLOGICAL: -altered mental status or loss of consciousness, -headache, - neurologic symptoms PSYCHIATRIC: -anxiety, -depression. ALL OTHER SYSTEMS REVIEWED AND NEGATIVE. Physical Exam - Vital signs Vitals: Temp Pulse Resp BP Pulse Ox 98.3 F 98 16 143/86 H 99 11/12/17 14:29 11/12/17 14:29 11/12/17 14:29 11/12/17 14:29 11/12/17 14:29 - Notes Notes: PHYSICAL EXAMINATION: HEAD: Atraumatic, normocephalic. EYES: Pupils equal round and reactive to light, extraocular movements intact, sclera anicteric, conjunctiva are normal. ENT: nares patent, oropharynx clear without exudates. Moist mucous membranes. NECK: Normal range of motion, supple without lymphadenopathy LUNGS: Breath sounds clear to auscultation bilaterally and equal. No wheezes rales or rhonchi. HEART: Regular rate and rhythm without murmurs ABDOMEN: Soft, mild epigastric tenderness, normoactive bowel sounds. No guarding, no rebound. No masses appreciated. EXTREMITIES: Normal range of motion, no pitting or edema. No cyanosis. NEUROLOGICAL: Cranial nerves grossly intact. Normal speech, normal gait. Normal sensory and motor exams. PSYCH: Normal mood, normal affect. SKIN: Warm, Dry, normal turgor, no rashes or lesions noted. Course - Re-evaluation Re-evalutation: Patient arrived vomiting with epigastric pain. After antiemetics and IV fluids , he feels much better and he is tolerating fluids by mouth. His blood work is consistent with his known CKD and does not show any acute dangerous abnormalities. His KUB does show signs of a large stool burden. Patient has not had a bowel movement for 5 days. Instructed them about [id number] management of the constipation and he understands. Given very strict return precautions he understands. - Vital Signs Vital signs: Temp Pulse Resp BP Pulse Ox 98.3 F 98 17 154/90 H 100 11/12/17 14:29 11/12/17 14:29 11/12/17 19:01 11/12/17 19:01 11/12/17 19:01 - Laboratory Result Diagrams: 11/12/17 17:15 11/12/17 17:15 Laboratory results interpreted by me: 11/12/17 11/12/17 17:15 17:15 WBC 12.0 H RBC 4.07 L Hgb 11.6 L Hct 35.0 L RDW 14.2 H Seg Neutrophils % 83.0 H Lymphocytes % 10.1 L Absolute Neutrophils 10.0 H Sodium 149.2 H BUN 27 H Creatinine 1.78 H Est GFR ( Amer) 47 L Est GFR (Non-Af Amer) 39 L Glucose 247 H ALT 16 L - Diagnostic Test Radiology reviewed: Image reviewed, Reports reviewed Radiology results interpreted by me: KUB: Heavy stool burden in the rectum and colon, consistent constipation. Discharge - Discharge Clinical Impression: Epigastric pain Nausea and vomiting Qualifiers: Vomiting type: unspecified Vomiting Intractability: non-intractable Qualified Code(s): R11.2 - Nausea with vomiting, unspecified Constipation Qualifiers: Constipation type: unspecified constipation type Qualified Code(s): K59.00 - Constipation, unspecified Condition: Stable Disposition: HOME, SELF-CARE Additional Instructions: VOMITING: Vomiting (or nausea without vomiting) can be caused by many other different problems. It can mean that something's wrong with the stomach, such as ulcers or inflammation or the intestinal tract, such as appendicitis. But it can also be a symptom of a problem that has nothing to do with the stomach or intestines. Vomiting is common with severe headaches, earaches, tonsillitis, and kidney infections, etc. We see it with pneumonia or heart attacks. Drugs can cause nausea and vomiting. Many abdominal problems cause vomiting; for example, gallstones, kidney stones, pancreatitis, and intestinal obstruction ( blocked bowels). In most cases, curing the vomiting depends on fixing the problem that caused it. For temporary relief, we may use an anti-nausea medicine. For home use, we can prescribe suppositories, chewable pills, pills that dissolve in the mouth, or liquid anti-nausea drugs. If the vomiting seems to be caused by a problem in the stomach, acid-suppressing drugs may be prescribed as well. It's important to avoid dehydration. Sip small amounts of clear liquids ( soft drinks, tea, broth, etc) . Try to take fluids frequently even if you are vomiting to prevent dehydration. Take increasing amounts of fluid and when liquids are being consumed successfully, advance to small amounts of bland food (toast, soups, mashed potatoes, etc.) until you are able to resume a regular diet. Avoid aspirin, tobacco, and alcohol. If the vomiting worsens, if the problem that's making you vomit worsens, or if there's evidence of bleeding in the stomach (such as black, tarry stool, or bloody or black vomit), you should return immediately. Also, return if abdominal pain worsens or becomes localized to one area or you develop high fever. Call your doctor if you aren't improved in 24 hours. ANTINAUSEA MEDICATION: You have been given a medication to suppress nausea and vomiting. This type of medication can be given as a shot, pill, or suppository. It will usually last for many hours. Pills and shots usually last six to eight hours. For the typical illness, only one or two doses of the medication may be necessary. Mild lightheadedness may occur. This type of medicine can cause drowsiness. Do not drive or operate dangerous machinery while under its influence. Do not mix with alcohol. See your doctor at once if you have muscle spasms or tightness, or uncontrollable motions (particularly of the neck, mouth, or jaw). Persistent vomiting or severe lightheadedness should also be evaluated by the physician. FOLLOW-UP CARE: If you have been referred to a physician for follow-up care, call the physician s office for an appointment as you were instructed or within the next two days. If you experience worsening or a significant change in your symptoms, notify the physician immediately or return to the Emergency Department at any time for re-evaluation. ABDOMINAL PAIN: There are many causes of abdominal pain. Pain can mean a serious problem requiring surgery (such as appendicitis). It can also be an innocent problem that goes away on its own (such as a viral infection). Often, time must pass to determine the cause of pain. The physician does not feel that hospitalization is necessary, at present. Things may change within the next 24 hours. Call the doctor or come back for re- examination if any problems occur, such as: (1) Pain that becomes more severe, steady, or becomes concentrated in one specific area. Also, pain that is more severe with movement or coughing. (2) Vomiting that persists or becomes more frequent. (3) Blood in the vomitus, urine, or bowel movements. Blood in the stool may have a tarry or black appearance. (4) Shaking chills or fever greater than 100 degrees F. (5) The abdomen becomes more distended or swollen. (6) Bowel movements cease. (7) Failure to improve as expected. NORMAL EXAM AND WORKUP: At this time, your examination and workup show no significant abnormality. No significant abnormal physical findings are noted. All laboratory, EKG, and imaging (x-ray, CT scans, ultrasound) studies that were ordered show no significant abnormality. Although your examination and all studies that were ordered showed no significant abnormal finding, there are no examinations and no studies that are 100% accurate. There is always the possibility that some abnormality could exist and not be detected with physical examination or within the limits and capabilities of laboratory and other studies. You should return or follow up as you were instructed on your visit today for further evaluation if your symptoms do not resolve. CONSTIPATION: Constipation is a common problem. It is especially likely as you get older. Constipation is a common cause of abdominal pain, but sometimes causes no symptoms at all. Causes of constipation include certain medications, dehydration, diets, inactivity, and low-fiber intake. Rarely, it can be a symptom of underlying disease. The physician has evaluated you for this. Avoid constipation by eating a diet high in fiber, fruits, and vegetables. Drink plenty of liquids. Get regular exercise. If possible, avoid constipating medicines like narcotic pain medication. Some vitamin tablets can cause constipation. Stool softeners may be needed for difficult cases. An excellent stool softener is Konsyl which is available at [employer], and [employer] drug store. Just add a teaspoon to a glass of pineapple or orange juice daily or twice a day if needed. Laxatives are useful for occasional constipation. You should use them only when necessary. Too-frequent use can make your bowels dependent on them. Some over the counter laxatives available without prescription are: Milk of Magnesia, 1-2 tablespoons twice a day Dulcolax, 5 mg pill or 10 mg suppository. Citrate of Magnesia, 4-5 ounces a day for a day or two For acute constipation, Fleet's Enemas and Dulcolax suppositories are helpful. Chronic, termite exterminator helper use of laxatives or enemas is not a good idea. Your bowel may become dependant on them. You do not need to have a bowel movement every day. Many people do fine with a bowel movement every three or four days. You should call your doctor or return for re-evaluation if you pass blood in the stool, or if you develop fever or increasing abdominal pain. BULK LAXATIVES: Bulk laxatives make the stool softer and bulkier. They're useful for preventing constipation. You can choose between psyllium, methylcellulose, and polycarbophil. They are available without a prescription. Psyllium brand names include Konsyl, Metamucil, Perdiem, Effer-Syllium and Hydrocil. It's available as powder, flavored drink powder, or chewable. The usual dose of psyllium powder is one heaping teaspoon in water each morning, increasing to twice a day if needed. Ewing juice can disguise the slightly grainy texture. Methylcellulose is marketed as Citrucel and other brands. The average dose is two grams in a cup of water one to three times a day. Polycarbophil is marketed as Fiber-Con. Take two tablets with a cup of water one to three times a day. LAXATIVE: A laxative agent has been prescribed for your condition. This should result in passage of stool within 12 hours. Some mild intestinal cramping is common as the hard stool begins to move. You may have loose or runny stools for a short time. Contact your doctor if there is severe cramping, vomiting, or passage of blood. Return for further care if this medicine fails to improve your condition. FOLLOW-UP CARE: If you have been referred to a physician for follow-up care, call the physician s office for an appointment as you were instructed or within the next two days. If you experience worsening or a significant change in your symptoms, notify the physician immediately or return to the Emergency Department at any time for re-evaluation. Prescriptions: Omeprazole Magnesium [Prilosec Otc] 20 mg PO Q12H #14 tablet. Ondansetron [Zofran Odt 4 mg Tablet] 1 - 2 tab PO Q4H PRN #15 tab.rapdis PRN Reason: For Nausea/Vomiting Forms: Elevated Blood Pressure Referrals: ALLA SCHULER MD [ACTIVE STAFF] - Follow up as needed
--- NOTE | 2017-11-12 17:05 | RADIOLOGY REPORT (SQ) ---
EXAM DESCRIPTION: ACUTE ABDOMEN SERIES COMPLETED DATE/TIME: 11/12/2017 4:57 pm REASON FOR STUDY: Acute abdominal pain COMPARISON: 11/05/2017 NUMBER OF VIEWS: Three views. TECHNIQUE: Frontal chest, supine abdomen and upright/decubitus abdomen radiographic images acquired. LIMITATIONS: None. FINDINGS: CHEST: Lungs clear of infiltrates. FREE AIR: None. No abnormal gas collections. BOWEL GAS PATTERN: Nonobstructive pattern. No dilated loops or air fluid levels. CALCIFICATIONS: No suspicious calcifications. HARDWARE: None in the abdomen. SOFT TISSUES: No gross mass or suggestion of organomegaly. Heavy stool burden within the colon and r ectum. BONES: Stable postsurgical changes. OTHER: No other significant finding. IMPRESSION: Heavy stool burden in the rectum and colon, consistent constipation. TECHNICAL DOCUMENTATION: JOB ID: [id number] [employer]- All Rights Reserved Reading location - IP/workstation name: [email or web address]
[2017-11-12 18:03] LABS: ABSOLUTE EOSINOPHILS # (AUTO) 0.1 10^3/uL (0.0-0.6); ABSOLUTE LYMPHOCYTES (AUTO) 1.2 10^3/uL (0.5-4.7); ABSOLUTE MONOCYTES (AUTO) 0.7 10^3/uL (0.1-1.4); BASOPHILS % (AUTO) 0.3 % (0-2); EOSINOPHILS % (AUTO) 0.5 % (0-6); HEMOGLOBIN 11.6 g/dL (13.5-17.0); LYMPHOCYTES % (AUTO) 10.1 % (13-45); MEAN CORPUSCULAR HEMOGLOBIN 28.6 pg (27.0-33.4); MEAN CORPUSCULAR HGB CONC 33.2 g/dL (32.0-36.0); MEAN CORPUSCULAR VOLUME 86 fl (80-97); MONOCYTES % (AUTO) 6.1 % (3-13); PLATELET COUNT 353 10^3/uL (150-450); RED BLOOD COUNT 4.07 10^6/uL (4.35-5.55); RED CELL DISTRIBUTION WIDTH 14.2 % (11.5-14.0); TOTAL CELLS COUNTED % (AUTO) 100 %
[2017-11-12 18:19] LABS: ALANINE AMINOTRANSFERASE 16 U/L (21-72); ALBUMIN 4.2 g/dL (3.5-5.0); ALKALINE PHOSPHATASE 91 U/L (38-126); ASPARTATE AMINO TRANSFERASE 19 U/L (17-59); BILIRUBIN,DIRECT 0.4 mg/dL (0.0-0.4); BILIRUBIN,TOTAL 0.6 mg/dL (0.2-1.3); BLOOD UREA NITROGEN 27 mg/dL (7-20); CALCIUM 9.9 mg/dL (8.4-10.2); CHLORIDE 101 mmol/L (98-107); GLUCOSE 247 mg/dL (75-110); LIPASE 58.1 U/L (23-300); POTASSIUM 4.4 mmol/L (3.6-5.0); TOTAL PROTEIN 7.8 g/dL (6.3-8.2)
[2017-11-12 18:24] LABS: ANION GAP 18 (5-19); CARBON DIOXIDE 30 mmol/L (22-30); SODIUM 149.2 mmol/L (137-145)
[2017-11-12 19:03] VITALS: BP 154/90
--- NOTE | 2017-11-12 23:07 | EKG REPORT ---
SEVERITY:- ABNORMAL ECG - SINUS RHYTHM LATERAL ST-T CHANGES CANNOT EXCLUDE ISCHEMIA. : Confirmed by: Yelitza Tatum MD 12-Nov-2017 23:06:59
== END 2017-11-12 19:35 | disposition home or self-care (01) ==
LOC: ER 14:17
DX: K59.00 Constipation, unspecified (principal); E11.43 Type 2 diabetes mellitus with diabetic autonomic (poly)neuropathy; K31.84 Gastroparesis; I12.9 Hypertensive chronic kidney disease with stage 1 through stage 4 chronic kidney disease, or unspecified chronic kidney disease; E11.22 Type 2 diabetes mellitus with diabetic chronic kidney disease; N18.9 Chronic kidney disease, unspecified; R11.2 Nausea with vomiting, unspecified; R10.13 Epigastric pain; F17.200 Nicotine dependence, unspecified, uncomplicated
CPT/HCPCS: 93005; 99284; 96361; 96374; 36415; 87040; 83690; 85025; 80076; 80048; 84484; 74022; 93010; J2765; J2405; J7030

== ENCOUNTER 2018-03-26 17:10 | Emergency (ER) | payer MEDICARE ==
--- NOTE | 2018-03-26 18:24 | ER Document Report ---
ED General - General Chief Complaint: General Weakness Stated Complaint: WEAKNESS Time Seen by Provider: 03/26/18 17:58 Notes: 67-year-old male with medical history of heart failure with reduced ejection fraction dilated cardiomyopathy, and diabetes presents to the emergency room for weakness times 1 week, nausea, and vomiting for 3 days. Per sister who was at the bedside he had vomited for the previous 3 days, profusely last night, and none today. She said he became "lethargic" and she called the ambulance to bring him in. He was given Zofran x1 approximately 1600. Sister states that he is constipated and has not not had a bowel movement in 5 days. She says when he gets constipated like this he becomes lethargic and nauseated. She denies any recent illness, syncope, fevers, dyspnea, chest pain, palpitations, abdominal pain. He uses a walker at home and has an unsteady gait at baseline. Of note he had an AICD placed a year ago but it has since been removed. He is being followed by Dr. Cintron. TRAVEL OUTSIDE OF THE [place] IN LAST 30 DAYS: No - HPI Onset: Last week Onset/Duration: Gradual - 1 week ago - Related Data Allergies/Adverse Reactions: Penicillins Allergy (Intermediate, Verified 11/12/17 14:19) swelling Past Medical History - General Information source: Relative - Sister - Social History Smoking Status: Current Every Day Smoker Frequency of alcohol use: None Drug Abuse: None Lives with: Alone Family History: Reviewed & Not Pertinent, CAD, DM, Malignancy Patient has suicidal ideation: No Patient has homicidal ideation: No - Past Medical History Cardiac Medical History: Reports: Hx Congestive Heart Failure - Chronic systolic , Hx Hypercholesterolemia, Hx Hypertension Denies: Hx Coronary Artery Disease, Hx Heart Attack Pulmonary Medical History: Reports: Hx COPD Denies: Hx Asthma, Hx Bronchitis, Hx Pneumonia, Hx Tuberculosis Neurological Medical History: Denies: Hx Cerebrovascular Accident, Hx Seizures Endocrine Medical History: Reports: Hx Diabetes Mellitus Type 1, Hx Diabetes Mellitus Type 2. Denies: Hx Hypothyroidism Renal/ Medical History: Reports: Hx Renal Insufficiency. Denies: Hx Peritoneal Dialysis GI Medical History: Reports: Hx Gastroesophageal Reflux Disease Musculoskeletal Medical History: Reports Hx Arthritis Psychiatric Medical History: Denies: Hx Depression Infectious Medical History: Reports: Hx MRSA Past Surgical History: Reports: Hx Internal Defibrillator - With removal, Hx Orthopedic Surgery. Denies: Hx Pacemaker - Immunizations Hx Diphtheria, Pertussis, Tetanus Vaccination: Yes Hx Pneumococcal Vaccination: 01/19/11 Review of Systems - Review of Systems Constitutional: See HPI EENT: See HPI Cardiovascular: See HPI Respiratory: See HPI Gastrointestinal: See HPI Genitourinary: See HPI Male Genitourinary: No symptoms reported Musculoskeletal: No symptoms reported Skin: No symptoms reported Hematologic/Lymphatic: No symptoms reported Neurological/Psychological: No symptoms reported Physical Exam - Vital signs Vitals: Temp Pulse Resp BP Pulse Ox 98.7 F 69 20 137/86 H 99 03/26/18 17:18 03/26/18 17:18 03/26/18 17:18 03/26/18 17:18 03/26/18 17:18 - Notes Notes: Reviewed vital signs and nursing note as charted by RN. CONSTITUTIONAL: Well-appearing, well-nourished, sleepy HEAD: Normocephalic, atraumatic, no swelling EYES: PERRL, Conjunctivae clear, no drainage, EOMI, no scleral icterus ENT: External ears without lesions, External auditory canal is patent, airway patent, mucous membranes pink and moist NECK: Supple, no cervical lymphadenopathy, no masses CARD: Regular rate and rhythm, no murmurs, no rubs, no gallops, capillary refill < 2 seconds, symmetric pulses RESP: The lungs are clear to auscultation bilaterally, no wheezing, no rales, no rhonchi. Respiratory rate and effort are normal, normal chest excursion. No respiratory distress, no retractions, no stridor, no nasal flaring, no accessory muscle use. ABD/GI: Normal bowel sounds, non-distended, soft, non-tender, no rebound, no guarding, no palpable organomegaly EXT: Normal ROM in all joints, non-tender to palpation, no effusions, no edema SKIN: Normal color for age and race, warm, dry, good turgor, no acute lesions noted NEURO: No facial asymmetry, moves all extremities equally, motor and sensory function intact Course - Re-evaluation Re-evalutation: 03/26/18 19:36 Perform rectal exam. Large amount of stool felt in the rectal vault. Plan to perform a soapsuds enema with mineral oil. 03/26/18 22:09 Patient received soapsuds enema and mineral oil. I went to reevaluate the patient and he was sitting on the commode having a bowel movement. Urinalysis showed UTI. Will give Keflex 500 mg x1 in the emergency department and prescribed him Keflex as an outpatient. Patient is greatly improved and is stable for discharge. - Vital Signs Vital signs: Temp Pulse Resp BP Pulse Ox 98.7 F 69 16 141/79 H 98 03/26/18 17:18 03/26/18 17:18 03/26/18 21:01 03/26/18 21:01 03/26/18 21:01 - Laboratory Result Diagrams: 03/26/18 18:00 03/26/18 18:00 Laboratory results interpreted by me: 03/26/18 03/26/18 03/26/18 18:00 18:00 20:10 RBC 3.82 L Hgb 11.3 L Hct 32.6 L Sodium 146.2 H BUN 48 H Creatinine 2.79 H Est GFR ( Amer) 28 L Est GFR (Non-Af Amer) 23 L ALT 19 L Urine Protein 100 H Urine Blood SMALL H Urine Urobilinogen 2.0 H Ur Leukocyte Esterase LARGE H Discharge - Discharge Clinical Impression: Constipation Qualifiers: Constipation type: other constipation type Qualified Code(s): K59.09 - Other constipation Urinary tract infection Qualifiers: Urinary tract infection type: acute cystitis Hematuria presence: without hematuria Qualified Code(s): N30.00 - Acute cystitis without hematuria Condition: Stable Disposition: HOME, SELF-CARE Instructions: Constipation ([facility]), Urinary Tract Infection ([facility]) Additional Instructions: You were seen in the emergency department this evening for constipation and for urinary tract infection. You can take MiraLAX to help with constipation and to promote regularity. Please dissolve 1 scoop of MiraLAX in a glass of water once a day to treat constipation. You may increase to twice a day if needed to create soft bowel movements and you may decrease to every other day if you develop diarrhea. You were prescribed Keflex for urinary tract infection. Please take 1 tablet 2 times per day for 10 days. Please take the antibiotic until it runs out. If you develop fever, altered mental status, dizziness, shortness of breath or chest pain please return to the emergency department. Prescriptions: Cephalexin Monohydrate [Keflex 500 mg Capsule] 500 mg PO QID #20 capsule Referrals: LEXUS GARCIA MD [Primary Care Provider] - Follow up as needed
[2018-03-26 18:31] LABS: ABSOLUTE BASOPHILS # (AUTO) 0.1 10^3/uL (0.0-0.2); ABSOLUTE EOSINOPHILS # (AUTO) 0.4 10^3/uL (0.0-0.6); ABSOLUTE LYMPHOCYTES (AUTO) 1.3 10^3/uL (0.5-4.7); ABSOLUTE MONOCYTES (AUTO) 0.4 10^3/uL (0.1-1.4); ABSOLUTE NEUT (AUTO) 4.8 10^3/uL (1.7-8.2); BASOPHILS % (AUTO) 1.4 % (0-2); HEMATOCRIT 32.6 % (37.9-51.0); HEMOGLOBIN 11.3 g/dL (13.5-17.0); LYMPHOCYTES % (AUTO) 18.7 % (13-45); MEAN CORPUSCULAR HEMOGLOBIN 29.5 pg (27.0-33.4); MEAN CORPUSCULAR HGB CONC 34.5 g/dL (32.0-36.0); MEAN CORPUSCULAR VOLUME 85 fl (80-97); MONOCYTES % (AUTO) 6.2 % (3-13); PLATELET COUNT 280 10^3/uL (150-450); RED BLOOD COUNT 3.82 10^6/uL (4.35-5.55); RED CELL DISTRIBUTION WIDTH 13.3 % (11.5-14.0); SEGMENTED NEUTROPHILS % (AUTO) 68.7 % (42-78); TOTAL CELLS COUNTED % (AUTO) 100 %
[2018-03-26 18:49] LABS: ALANINE AMINOTRANSFERASE 19 U/L (21-72); ALBUMIN 4.2 g/dL (3.5-5.0); ALKALINE PHOSPHATASE 95 U/L (38-126); ANION GAP 15 (5-19); ASPARTATE AMINO TRANSFERASE 20 U/L (17-59); BILIRUBIN,DIRECT 0.3 mg/dL (0.0-0.4); BILIRUBIN,TOTAL 0.4 mg/dL (0.2-1.3); BLOOD UREA NITROGEN 48 mg/dL (7-20); CALCIUM 9.5 mg/dL (8.4-10.2); CARBON DIOXIDE 25 mmol/L (22-30); CHLORIDE 106 mmol/L (98-107); GLUCOSE 105 mg/dL (75-110); POTASSIUM 4.3 mmol/L (3.6-5.0); SODIUM 146.2 mmol/L (137-145); TOTAL PROTEIN 7.6 g/dL (6.3-8.2)
[2018-03-26 19:43] LABS: TROPONIN I 0.024 ng/mL
--- NOTE | 2018-03-26 19:44 | RADIOLOGY REPORT (SQ) ---
EXAM DESCRIPTION: CHEST SINGLE VIEW COMPLETED DATE/TIME: 03/26/2018 7:19 pm REASON FOR STUDY: weakness COMPARISON: 01/01/2016 EXAM PARAMETERS: NUMBER OF VIEWS: One view. TECHNIQUE: Single frontal radiographic view of the chest acquired. RADIATION DOSE: NA LIMITATIONS: None. FINDINGS: LUNGS AND PLEURA: No opacities, masses or pneumothorax. No pleural effusion. MEDIASTINUM AND HILAR STRUCTURES: No masses. Contour normal. HEART AND VASCULAR STRUCTURES: Heart normal in size. Normal vasculature. BONES: No acute findings. HARDWARE: None in the chest. OTHER: No other significant finding. IMPRESSION: NO ACUTE RADIOGRAPHIC FINDING IN THE CHEST. TECHNICAL DOCUMENTATION: JOB ID: [id number] [employer]- All Rights Reserved Reading location - IP/workstation name: [email or web address]
[2018-03-26 20:42] LABS: APPEARANCE,URINE TURBID; BILIRUBIN,URINE NEGATIVE (NEGATIVE); COLOR,URINE YELLOW; GLUCOSE, URINE NEGATIVE (NEGATIVE); KETONES,URINE NEGATIVE (NEGATIVE); LEUKOCYTE ESTERASE,URINE LARGE (NEGATIVE); NITRITE,URINE NEGATIVE (NEGATIVE); PROTEIN,URINE 100 mg/dL (NEGATIVE); URINE SPECIFIC GRAVITY 1.012
[2018-03-26] MEDS ORDERED: MINERAL OIL ENEMA 133 ML PR ONE (21:09)
[2018-03-26] MEDS ORDERED: CEPHALEXIN 500 MG CAPSULE PO ONE (21:51)
[2018-03-26] MEDS ORDERED: ONDANSETRON 4 MG TAB.RAPDIS PO ONE (22:16)
--- NOTE | 2018-03-26 22:41 | EKG REPORT ---
SEVERITY:- ABNORMAL ECG - SINUS RHYTHM FIRST DEGREE AV BLOCK NONSPECIFIC INTRAVENTRICULAR CONDUCTION DELAY : Confirmed by: Grace Baker 26-Mar-2018 22:40:54
[2018-03-26 23:21] VITALS: BP 142/82
== END 2018-03-26 23:21 | disposition home or self-care (01) ==
LOC: ER 17:10
DX: K59.09 Other constipation (principal); N30.00 Acute cystitis without hematuria; R53.1 Weakness; I50.9 Heart failure, unspecified; E78.00 Pure hypercholesterolemia, unspecified; I11.0 Hypertensive heart disease with heart failure; E11.9 Type 2 diabetes mellitus without complications; Z86.14 Personal history of Methicillin resistant Staphylococcus aureus infection; Z88.0 Allergy status to penicillin
CPT/HCPCS: 93005; 99285; 36415; 85025; 80053; 81001; 84484; 83880; 71045; 93010; A9270 ×2; J3490; S0119

== ENCOUNTER 2018-07-24 10:27 | Inpatient (IN) | payer MEDICARE ==
[2018-07-24] MEDS ORDERED: NORMAL SALINE 500 ML IV ONE (11:39)
[2018-07-24 11:52] LABS: ABSOLUTE BASOPHILS # (AUTO) 0.1 10^3/uL (0.0-0.2); ABSOLUTE EOSINOPHILS # (AUTO) 0.5 10^3/uL (0.0-0.6); ABSOLUTE LYMPHOCYTES (AUTO) 1.2 10^3/uL (0.5-4.7); ABSOLUTE MONOCYTES (AUTO) 0.4 10^3/uL (0.1-1.4); ABSOLUTE NEUT (AUTO) 4.3 10^3/uL (1.7-8.2); BASOPHILS % (AUTO) 0.9 % (0-2); EOSINOPHILS % (AUTO) 7.9 % (0-6); HEMATOCRIT 32.7 % (37.9-51.0); HEMOGLOBIN 11.1 g/dL (13.5-17.0); LYMPHOCYTES % (AUTO) 18.8 % (13-45); MEAN CORPUSCULAR HEMOGLOBIN 29.8 pg (27.0-33.4); MEAN CORPUSCULAR HGB CONC 34.1 g/dL (32.0-36.0); MEAN CORPUSCULAR VOLUME 87 fl (80-97); MONOCYTES % (AUTO) 6.6 % (3-13); PLATELET COUNT 238 10^3/uL (150-450); RED BLOOD COUNT 3.74 10^6/uL (4.35-5.55); RED CELL DISTRIBUTION WIDTH 13.7 % (11.5-14.0); SEGMENTED NEUTROPHILS % (AUTO) 65.8 % (42-78); TOTAL CELLS COUNTED % (AUTO) 100 %; WHITE BLOOD COUNT 6.5 10^3/uL (4.0-10.5)
--- NOTE | 2018-07-24 12:29 | RADIOLOGY REPORT (SQ) ---
EXAM DESCRIPTION: CHEST SINGLE VIEW COMPLETED DATE/TIME: 07/24/2018 12:01 pm REASON FOR STUDY: seisure COMPARISON: 03/26/2018, 11/05/[address] chest 09/12/2016 EXAM PARAMETERS: NUMBER OF VIEWS: One view. TECHNIQUE: Single frontal radiographic view of the chest acquired. RADIATION DOSE: NA LIMITATIONS: None. FINDINGS: LUNGS AND PLEURA: No opacities, masses or pneumothorax. No pleural effusion. MEDIASTINUM AND HILAR STRUCTURES: No masses. Fullness right paratracheal region correlates with tort uous brachiocephalic vessels on prior CT chest. HEART AND VASCULAR STRUCTURES: Heart normal in size. Normal vasculature. BONES: No acute findings. HARDWARE: None in the chest. OTHER: No other significant finding. IMPRESSION: NO ACUTE RADIOGRAPHIC FINDING IN THE CHEST. TECHNICAL DOCUMENTATION: JOB ID: [id number] [employer]- All Rights Reserved Reading location - IP/workstation name: [email or web address]
[2018-07-24 12:35] LABS: ALANINE AMINOTRANSFERASE 13 U/L (21-72); ALBUMIN 3.9 g/dL (3.5-5.0); ALKALINE PHOSPHATASE 97 U/L (38-126); ANION GAP 11 (5-19); ASPARTATE AMINO TRANSFERASE 28 U/L (17-59); BILIRUBIN,DIRECT 0.4 mg/dL (0.0-0.4); BILIRUBIN,TOTAL 0.5 mg/dL (0.2-1.3); BLOOD UREA NITROGEN 56 mg/dL (7-20); CALCIUM 9.2 mg/dL (8.4-10.2); CARBON DIOXIDE 26 mmol/L (22-30); CHLORIDE 107 mmol/L (98-107); CREATINE KINASE 231 U/L (55-170); GLUCOSE 240 mg/dL (75-110); LIPASE 101.2 U/L (23-300); POTASSIUM 3.8 mmol/L (3.6-5.0); SODIUM 143.7 mmol/L (137-145); TOTAL PROTEIN 7.4 g/dL (6.3-8.2)
[2018-07-24 12:47] LABS: CREATINE KINASE MB 1.3 ng/mL (<4.55); TROPONIN I 0.019 ng/mL
[2018-07-24] MEDS ORDERED: LEVETIRACETAM 500 MG TABLET PO ONE (13:01)
--- NOTE | 2018-07-24 13:27 | EKG REPORT ---
SEVERITY:- ABNORMAL ECG - SINUS RHYTHM FIRST DEGREE AV BLOCK NONSPECIFIC INTRAVENTRICULAR CONDUCTION DELAY NONSPECIFIC ST-T CHANGES- INFERIOR LEADS : Confirmed by: Yo Foss MD 24-Jul-2018 13:26:52
[2018-07-24 13:46] LABS: APPEARANCE,URINE CLEAR; BILIRUBIN,URINE NEGATIVE (NEGATIVE); COLOR,URINE STRAW; GLUCOSE, URINE NEGATIVE (NEGATIVE); KETONES,URINE NEGATIVE (NEGATIVE); LEUKOCYTE ESTERASE,URINE MODERATE (NEGATIVE); NITRITE,URINE NEGATIVE (NEGATIVE); PROTEIN,URINE 30 mg/dL (NEGATIVE); URINE SPECIFIC GRAVITY 1.008; UROBILINOGEN,URINE NEGATIVE mg/dL (<2.0)
--- NOTE | 2018-07-24 14:08 | ER Document Report ---
Doctor's Note Notes: I personally and independently obtained patient history and examined the patient in conjunction with the APC and agree with the assessment, treatment plan and disposition of the patient as recorded by the APC, and have reviewed the APC's note. HISTORY OF PRESENT ILLNESS: Patient is a 68-year-old male that presents to the emergency department for chief complaint of seizure activity. ROS: Constitutional: Negative for fever. Cardiovascular: Negative for chest pain. Respiratory: Negative for shortness of breath. Gastrointestinal: Negative for vomiting or abdominal pain Musculoskeletal: Negative for arm, leg or back pain Skin: Negative for rash. Neurological: Positive for seizure activity Other than noted above, the 12 point review of systems was reviewed with the patient and were negative, all pertinent findings are included in the HPI. PHYSICAL EXAMINATION: Vital signs reviewed, nursing noted reviewed. GENERAL: Elderly male, slow to answer questions, seemingly confused and postictal. HEAD: Atraumatic, normocephalic. EYES: Eyes appear normal, conjunctiva are normal. ENT: nares patent, oropharynx clear without exudates. Dry mucous membranes NECK: Normal range of motion, supple without lymphadenopathy LUNGS: Breath sounds clear to auscultation bilaterally and equal. No wheezes rales or rhonchi. HEART: Regular rate and rhythm without murmurs ABDOMEN: Soft, nontender, normoactive bowel sounds. No rebound, guarding, or rigidity. No masses appreciated. EXTREMITIES: Nontender, good range of motion, no pitting or edema. NEUROLOGICAL: Somewhat confused, mild aphasia, Moves all extremities spontaneously Motor and sensory grossly intact on exam. PSYCH: Normal mood, normal affect. SKIN: Warm, Dry, normal turgor, no rashes or lesions noted on exposed skin MEDICAL DECISION MAKING: Patient seen and examined, vital signs reviewed, workup reviewed for this patient including CT imaging of the head, patient apparently has had seizure activity in the past, but this 1 seemed to be different according to the patient's is at bedside. Patient was found to be significantly dehydrated on exam, he recently was increased on Lasix for lower extremity edema, and likely got over diuresed, patient was given IV fluids after I obtained ultrasound-guided IV. Case discussed with nephrology and hospitalist patient admitted to the hospital, due to seizure activity, and confusion, and mild aphasia Please review detail APC documentation. *Note is created using voice recognition software and may contain spelling, syntax or grammatical errors. Laboratory 07/24/18 07/24/18 07/24/18 11:00 11:00 11:00 WBC 6.5 RBC 3.74 L Hgb 11.1 L Hct 32.7 L MCV 87 MCH 29.8 MCHC 34.1 RDW 13.7 Plt Count 238 Seg Neutrophils % 65.8 Lymphocytes % 18.8 Monocytes % 6.6 Eosinophils % 7.9 H Basophils % 0.9 Absolute Neutrophils 4.3 Absolute Lymphocytes 1.2 Absolute Monocytes 0.4 Absolute Eosinophils 0.5 Absolute Basophils 0.1 Sodium 143.7 Potassium 3.8 Chloride 107 Carbon Dioxide 26 Anion Gap 11 BUN 56 H Creatinine 2.43 H Est GFR ( Amer) 32 L Est GFR (Non-Af Amer) 27 L Glucose 240 H Calcium 9.2 Total Bilirubin 0.5 Direct Bilirubin 0.4 Neonat Total Bilirubin Not Reportable Neonat Direct Bilirubin Not Reportable Neonat Indirect Bili Not Reportable AST 28 ALT 13 L Alkaline Phosphatase 97 Creatine Kinase 231 H CK-MB (CK-2) 1.30 Troponin I 0.019 Total Protein 7.4 Albumin 3.9 Lipase 101.2 Urine Color Urine Appearance Urine pH Ur Specific [place] Urine Protein Urine Glucose (UA) Urine Ketones Urine Blood Urine Nitrite Urine Bilirubin Urine Urobilinogen Ur Leukocyte Esterase Urine WBC (Auto) Urine RBC (Auto) U Hyaline Cast (Auto) Urine Bacteria (Auto) Squamous Epi Cells Auto Urine Mucus (Auto) Urine Ascorbic Acid 07/24/18 13:22 WBC RBC Hgb Hct MCV MCH MCHC RDW Plt Count Seg Neutrophils % Lymphocytes % Monocytes % Eosinophils % Basophils % Absolute Neutrophils Absolute Lymphocytes Absolute Monocytes Absolute Eosinophils Absolute Basophils Sodium Potassium Chloride Carbon Dioxide Anion Gap BUN Creatinine Est GFR ( Amer) Est GFR (Non-Af Amer) Glucose Calcium Total Bilirubin Direct Bilirubin Neonat Total Bilirubin Neonat Direct Bilirubin Neonat Indirect Bili AST ALT Alkaline Phosphatase Creatine Kinase CK-MB (CK-2) Troponin I Total Protein Albumin Lipase Urine Color STRAW Urine Appearance CLEAR Urine pH 6.0 Ur Specific [place] 1.008 Urine Protein 30 H Urine Glucose (UA) NEGATIVE Urine Ketones NEGATIVE Urine Blood NEGATIVE Urine Nitrite NEGATIVE Urine Bilirubin NEGATIVE Urine Urobilinogen NEGATIVE Ur Leukocyte Esterase MODERATE H Urine WBC (Auto) 22 Urine RBC (Auto) 2 U Hyaline Cast (Auto) 2 Urine Bacteria (Auto) TRACE Squamous Epi Cells Auto <1 Urine Mucus (Auto) RARE Urine Ascorbic Acid NEGATIVE Head MRI 07/24/18 00:00 IMPRESSION: 1. Focal acute deep left parietal/occipital infarct, approximately 4 x 4 by 16 mm. No associated mass effect. 2. Numerous old lacunar infarcts in the yevgeniy, thalami, and putamen bilaterally. Old right occipital infarct. 3. Severe chronic ischemic cerebral white matter changes Chest X-Ray 07/24/18 11:38 IMPRESSION: NO ACUTE RADIOGRAPHIC FINDING IN THE CHEST. Head CT 07/24/18 13:01 IMPRESSION: Chronic atrophy and small-vessel ischemic change. Old right occipital lobe infarct. No acute intracranial event. EVIDENCE OF ACUTE STROKE: NO.
--- NOTE | 2018-07-24 14:15 | RADIOLOGY REPORT (SQ) ---
EXAM DESCRIPTION: CT HEAD WITHOUT COMPLETED DATE/TIME: 07/24/2018 2:07 pm REASON FOR STUDY: New-onset seizure COMPARISON: 07/02/2017 TECHNIQUE: Axial images acquired through the brain without intravenous contrast. Images reviewed wi th bone, brain and subdural windows. Additional sagittal and coronal reconstructions were generated. Images stored on PACS. All CT scanners at this facility use dose modulation, iterative reconstruction, and/or weight based d osing when appropriate to reduce radiation dose to as low as reasonably achievable (ALARA). [facility]: Dose Right [facility]: CareDose [facility]: Dose Right [facility]: Teradose 4D [facility]: Smart [facility] RADIATION DOSE: CT Rad equipment meets quality standard of care and radiation dose reduction techniq ues were employed. CTDIvol: 53.2 mGy. DLP: 991 mGy-cm. mGy. LIMITATIONS: None. FINDINGS: VENTRICLES: Prominent. CEREBRUM: No masses. No hemorrhage. No midline shift. Areas of low density in the white matter mos t likely due to chronic micro-vascular ischemic change. No evidence for acute infarction. There is a chronic right occipital lobe infarct. CEREBELLUM: No masses. No hemorrhage. No alteration of density. No evidence for acute infarction. EXTRAAXIAL SPACES: Mild age-related involutional change. No fluid collections. No masses. ORBITS AND GLOBE: No intra- or extraconal masses. Normal contour of globe without masses. CALVARIUM: No fracture. PARANASAL SINUSES: No fluid or mucosal thickening. SOFT TISSUES: No mass or hematoma. OTHER: No other significant finding. IMPRESSION: Chronic atrophy and small-vessel ischemic change. Old right occipital lobe infarct. No acute intracranial event. EVIDENCE OF ACUTE STROKE: NO. TECHNICAL DOCUMENTATION: JOB ID: [id number] Quality ID # [id number]: Final reports with documentation of one or more dose reduction techniques (e.g., Au tomated exposure control, adjustment of the mA and/or kV according to patient size, use of iterative reconstruction technique) 2010 [employer]- All Rights Reserved Reading location - IP/workstation name: [email or web address]
--- NOTE | 2018-07-24 15:14 | ER Document Report ---
ED Seizure - General Chief Complaint: Probable Seizure Stated Complaint: POSSIBLE SEIZURE Time Seen by Provider: 07/24/18 10:51 Primary Care Provider: LEXUS PATEL MD [Primary Care Provider] - Follow up as needed Mode of Arrival: Medic Information source: Relative, Emergency Med Personnel Notes: Patient is a 68-year-old male who was brought into the emergency room by EMS with a statement by them of patient having seizure. EMS reports on arrival to the scene patient was postictal and confused. There was no indication of loss of urine or stool and on physical exam here there was no indication of that either. Patient is now accompanied by his sister who does not live with. Patient lives alone. 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 Patient also has a history from sister of having rhabdo. She also indicates that from the rhabdo he ended up having a mini stroke and he has had a year of recovery he was not ambulatory at first and then with physical therapy he can now walk with a walker but most of the time he uses a wheelchair. He is still also somewhat aphasic he has struggles to get his words out. Patient does live by himself but the family takes him food and he has some home health care that comes by a few times a week. There was reported that this morning according to the sister was there that patient wheeled himself into the kitchen to eat waffles he finished eating went into the bathroom to brush his teeth when sister did not hear much going on she went into the bathroom to find him sitting there staring blankly ahead he had saliva coming out the corner of his mouth and then all of a sudden he went into a tonic-clonic type seizure where he went into became postured tense and shaking all over with his eyes rolling back into his head. She states it lasted for a good 2 minutes and then he relaxed into his wheelchair. There was no fall sustained no injuries. TRAVEL OUTSIDE OF THE [place] IN LAST 30 DAYS: No - HPI Patient complains to provider of: Other - Questionable history of seizures presented by the sister supposedly he had a seizure when he was uroseptic the last time but it was not witnessed and he also had a questionable seizure when his blood sugar was too high. Number of episodes: 1 Time of onset: This morning after breakfast Duration: 2 minutes Quality of pain: No pain Severity: Moderate Pain Level: 3 Continued on arrival to ED: No Can details of seizure be obtained/verified: Yes Episode witnessed (by whom): Yes - Sister Current seizure medications: No: Carbamazepine, Gabatin, Keppra, Lamictal, Phenytoin, Phenobarbital, Trileptal, Valproic acid, Vimpat, Other Preceding symptoms/context: denies: Recent illness/fever, Recent alcohol intake, Recent drug use, Sleep deprivation, Missed dose of meds, Changed meds or dosage, Somnolence, Other History of: CVA Character of seizure: Complete loss/conscious, Generalized shaking Post-ictal symptoms: Confusion, Headache, Speech difficulty Injuries: None Associated Symptoms: None - Related Data Allergies/Adverse Reactions: Penicillins Allergy (Intermediate, Verified 11/12/17 14:19) swelling Past Medical History - General Information source: Emergency Med Personnel, [facility] Records Cannot obtain history due to: Dementia - Social History Smoking Status: Current Every Day Smoker Cigarette use (# per day): Yes - 3 cigarettes a day Chew tobacco use (# tins/day): No Smoking Education Provided: No Frequency of alcohol use: None Drug Abuse: None Lives with: Alone Family History: Reviewed & Not Pertinent, CAD, DM, Malignancy Patient has suicidal ideation: No Patient has homicidal ideation: No - Past Medical History Cardiac Medical History: Reports: Hx Congestive Heart Failure - Chronic systolic, Hx Hypercholesterolemia, Hx Hypertension Denies: Hx Coronary Artery Disease, Hx Heart Attack Pulmonary Medical History: Reports: Hx COPD Denies: Hx Asthma, Hx Bronchitis, Hx Pneumonia, Hx Tuberculosis Neurological Medical History: Reports: Hx Seizures. Denies: Hx Cerebrovascular Accident Endocrine Medical History: Reports: Hx Diabetes Mellitus Type 1, Hx Diabetes Mellitus Type 2. Denies: Hx Hypothyroidism Renal/ Medical History: Reports: Hx Renal Insufficiency. Denies: Hx Perito alina Dialysis GI Medical History: Reports: Hx Gastroesophageal Reflux Disease Musculoskeletal Medical History: Reports Hx Arthritis Psychiatric Medical History: Denies: Hx Depression Infectious Medical History: Reports: Hx MRSA Past Surgical History: Reports: Hx Internal Defibrillator - With removal, Hx Orthopedic Surgery. Denies: Hx Pacemaker - Immunizations Hx Diphtheria, Pertussis, Tetanus Vaccination: Yes Hx Pneumococcal Vaccination: 01/19/11 Review of Systems - Review of Systems Constitutional: No symptoms reported EENT: No symptoms reported Cardiovascular: No symptoms reported Respiratory: No symptoms reported Gastrointestinal: No symptoms reported Genitourinary: No symptoms reported Male Genitourinary: No symptoms reported Musculoskeletal: No symptoms reported Skin: No symptoms reported Hematologic/Lymphatic: No symptoms reported Neurological/Psychological: See HPI, Weakness, Seizure, Speech impairment -: Yes All other systems reviewed and negative Physical Exam - Vital signs Vitals: Temp Pulse Resp BP Pulse Ox 98.8 F 78 20 157/84 H 99 07/24/18 10:36 07/24/18 10:36 07/24/18 10:36 07/24/18 10:36 07/24/18 10:36 Interpretation: Normal, Hypertensive Notes: PHYSICAL EXAMINATION: GENERAL: Patient is a well-nourished and developed 68-year-old male who on physical exam is in no apparent distress however he does appear somewhat confused and still postictal. HEAD: Atraumatic, normocephalic. EYES: Pupils equal round and reactive to light, extraocular movements intact, sclera anicteric, conjunctiva are normal. ENT: Nares patent, oropharynx clear without exudates, mucous membranes excessively dry eyes as is the tongue. There is no fissuring noted yet on the tongue but it is completely dry. NECK: Normal range of motion, supple without lymphadenopathy LUNGS: Breath sounds clear to auscultation bilaterally and equal. No wheezes rales or rhonchi. HEART: Regular rate and rhythm without murmurs ABDOMEN: Soft, nontender, nondistended abdomen. No guarding, no rebound. No masses appreciated. Musculoskeletal: Normal range of motion, no pitting or edema. No cyanosis. NEUROLOGICAL: Normal sensory, motor exams patient's speech is somewhat aphasic he has difficult time getting his words out but eventually does. He is mostly awake alert and oriented x4 however he has had moments when he forgets the year, PSYCH: Normal mood, normal affect. SKIN: Warm, Dry,, no rashes or lesions noted. Course - Re-evaluation Re-evalutation: 07/24/18 15:26 Patient 6 dental stay in ER has been primarily because we have had difficulty getting IVs into the patient. Patient was attempted 8 times by nursing and then [address] Fulton with the ultrasound machine. I discussed the case with Dr. Fulton who agrees patient probably should be admitted for follow-up and for fine tuning. I was able to talk to Dr. Taylor in nephrology who does know the patient that this was an incidental talking to him since he had contacted the ER for another patient. He did pull patient up and patient does have a history of renal failure he was unaware the patient was taking 80 of Lasix in the morning and 40 of Lasix in the evening patient does have a history of congestive heart failure so would not be impractical for that to happen but he felt patient could receive some fluids without very much problem. So at this time will be contacting the hospitalist patient's primary doctor is Dr. Patel - Vital Signs Vital signs: Temp Pulse Resp BP Pulse Ox 98.8 F 78 17 140/76 H 99 07/24/18 10:36 07/24/18 10:36 07/24/18 15:01 07/24/18 15:00 07/24/18 15:01 - Laboratory Result Diagrams: 07/24/18 11:00 07/24/18 11:00 Laboratory results interpreted by me: 07/24/18 07/24/18 07/24/18 11:00 11:00 13:22 RBC 3.74 L Hgb 11.1 L Hct 32.7 L Eosinophils % 7.9 H BUN 56 H Creatinine 2.43 H Est GFR ( Amer) 32 L Est GFR (Non-Af Amer) 27 L Glucose 240 H ALT 13 L Creatine Kinase 231 H Urine Protein 30 H Ur Leukocyte Esterase MODERATE H Discharge - Discharge Clinical Impression: Seizure, Hypoglycemia Urinary tract infection Qualifiers: Urinary tract infection type: site unspecified Hematuria presence: without hematuria Qualified Code(s): N39.0 - Urinary tract infection, site not specified Condition: Fair Disposition: ADMITTED INPATIENT Admitting Provider: Trixie (Hospitalist) Unit Admitted: Telemetry Referrals: LEXUS PATEL MD [Primary Care Provider] - Follow up as needed
[2018-07-24] MEDS ORDERED: DEXTROSE 50%-WATER 25 GM/50 ML DISP.SYRIN IV ONE (15:23)
[2018-07-24] MEDS ORDERED: CEFTRIAXONE 1 GM/D5W RTU 1 GM/50 ML RTUPB IV ONE (15:42)
[2018-07-24] MEDS ORDERED: ACETAMINOPHEN 325 MG TABLET PO PRN (16:35)
--- NOTE | 2018-07-24 17:04 | PDOC H&P ---
History of Present Illness Admission Date/PCP: 07/24/18 16:05 LEXUS GARCIA MD History of Present Illness: FLAG MORELIA THIBODEAUX is a 68 year old male with a history of insulin-dependent diab etes, ischemic stroke, congestive heart failure, and stage IV chronic kidney disease, who is a current every day smoker was in his usual state of health this morning and ate a breakfast of 2 waffles with syrup and some orange juice, then went to the bathroom to brush his teeth and get himself ready to go to his physical therapy appointment. He took his insulin after he ate, and his sister says that she is the one who draws up his insulin and gives it to him, and she gave him his usual dose. He is not had any other changes in his medications recently. He had been on gabapentin for a couple of months but came off of that over 2 weeks ago. His sister said that he called out from the bathroom and said something was wrong but could not say what, just saying that he did not feel good. She then saw him stare straight ahead and then slouched down in the chair with his eyes closed and had repetitive jerking and twitching motions that lasted for about 2 minutes. There was no loss of bowel or bladder control. He did not bite his tongue. She did not give him anything else to eat or drink until EMS got there, and they check his blood sugar and it was 162. When he got to the ER it was 240, but they told me that they checked again at one point it was down to 51, but I did not see this entered into the computer. His sister tells me that he had had a seizure before during a previous illness when he got septic from an infection on his foot and also had some rhabdomyolysis. His sister tells me that his primary care provider increased his Lasix for 5 days and today was supposed to be the last of that, because he had appeared to have gotten a little fluid overloaded. In the ER his creatinine is elevated a little bit above his baseline which is normally around 2.2. He did not have any significant electrolyte disturbances. His urinalysis had a positive leukocyte esterase but the patient is not had any urinary complaints, fevers, or any signs of infection prior to his presentation. Past Medical History Cardiac Medical History: Reports: Congestive Heart Failure - Chronic systolic, Hyperlipidema, Hypertension Denies: Coronary Artery Disease, Myocardial Infarction Pulmonary Medical History: Reports: Chronic Obstructive Pulmonary Disease (COPD) Denies: Asthma, Bronchitis, Pneumonia, Tuberculosis Neurological Medical History: Reports: Seizures Endocrine Medical History: Reports: Diabetes Mellitus Type 1, Diabetes Mellitus Type 2 Denies: Hypothyroidism GI Medical History: Reports: Gastroesophageal Reflux Disease Musculoskeltal Medical History: Reports: Arthritis Psychiatric Medical History: Denies: Depression Hematology: Reports: Anemia Infectious Medical History: Reports: Methicillin-Resistant Staph Aureus Past Surgical History Past Surgical History: Reports: Internal Defibrillator - With removal, Orthopedic Surgery Denies: Pacemaker Social History Lives with: Alone Smoking Status: Current Every Day Smoker Frequency of Alcohol Use: None Hx Recreational Drug Use: No Drugs: None Hx Prescription Drug Abuse: No Family History Family History: Reviewed & Not Pertinent, CAD, DM, Malignancy Parental Family History Reviewed: Yes Children Family History Reviewed: Unknown Sibling(s) Family History Reviewed.: Yes Medication/Allergy Home Medications: Amlodipine Besylate [Norvasc 10 mg Tablet] 10 mg PO DAILY 04/23/17 Carvedilol [Coreg 25 mg Tablet] 12.5 mg PO DAILY 04/23/17 Aspirin [Aspirin 81 mg Chewable Tablet] 81 mg PO DAILY 30 Days #0 tab.chew 05/01 Cilostazol [Pletal 100 mg Tablet] 50 mg PO BID tablet 05/01/17 Docusate Sodium [Colace 100 mg Capsule] 100 mg PO BID capsule 05/01/17 Polyethylene Glycol 3350 [Miralax Powder 17 gm/Packet] 17 gm PO DAILY powd.pack 05/01/17 Clonidine HCl [Catapres 0.1 mg Tablet] 0.1 mg PO Q12 11/05/17 Acetaminophen [Tylenol 325 mg Tablet] 650 mg PO Q4HP PRN tablet 11/08/17 Docusate Sodium [Colace 100 mg Capsule] 100 mg PO BID #60 capsule 11/08/17 Insulin Aspart [Novolog Flexpen] 0 unit SUBCUT .SLD SCALE #1 pen 11/08/17 Insulin Glargine,Hum.rec.anlog [Lantus Insulin 100 Unit/mL] 22 unit SUBCUT DAILY #1 insuln.pen 11/08/17 Metoclopramide HCl [Reglan 10 mg Tablet] 5 mg PO ACHS #120 tablet 11/08/17 Nicotine [Nicoderm 14 mg/24 Hr Transdermal Patch] 1 each TD DAILYP PRN #30 patch.td24 11/08/17 Pen Needle, Diabetic [Pen Needle] 1 each MC 5XD #150 dis.needle 11/08/17 Sacubitril/Valsartan [Entresto 24 mg-26 mg Tablet] 1 each PO BID #60 tablet 11/08/17 Pantoprazole Sodium [Protonix] 20 mg PO BID #60 tablet. 11/11/17 Omeprazole Magnesium [Prilosec Otc] 20 mg PO Q12H #14 tablet. 11/12/17 Ondansetron [Zofran Odt 4 mg Tablet] 1 - 2 tab PO Q4H PRN #15 tab.rapdis 11/12/17 Cephalexin Monohydrate [Keflex 500 mg Capsule] 500 mg PO QID #20 capsule 03/26/18 Allergies/Adverse Reactions: Penicillins Allergy (Intermediate, Verified 11/12/17 14:19) swelling Review of Systems All systems: reviewed and no additional remarkable complaints except as stated - All systems were reviewed and were negative except as noted above Physical Exam Vital Signs: Temp Pulse Resp BP Pulse Ox 98.8 F 78 17 140/76 H 99 07/24/18 10:36 07/24/18 10:36 07/24/18 15:01 07/24/18 15:00 07/24/18 15:01 Intake & Output 07/23/18 07/24/18 07/25/18 06:59 06:59 06:59 Intake Total 500 Balance 500 Weight 84.3 kg General appearance: PRESENT: no acute distress, cooperative, disheveled Head exam: PRESENT: atraumatic, normocephalic Eye exam: PRESENT: EOMI, PERRLA. ABSENT: conjunctival injection, nystagmus, scleral icterus Ear exam: PRESENT: normal external ear exam Mouth exam: PRESENT: dry mucosa, neck supple Teeth exam: PRESENT: poor dentation Throat exam: ABSENT: post pharyngeal erythema Neck exam: PRESENT: full ROM. ABSENT: carotid bruit, JVD, lymphadenopathy, meningismus, tenderness, thyromegaly Respiratory exam: PRESENT: clear to auscultation nathan, symmetrical, unlabored. ABSENT: accessory muscle use, crackles, prolonged expiratory phas, rhonchi, tachypnea, wheezes Cardiovascular exam: PRESENT: RRR, +S1, +S2, other - Heart sounds were a bit muffled. ABSENT: diastolic murmur, systolic murmur Pulses: PRESENT: normal carotid pulses Vascular exam: PRESENT: normal capillary refill GI/Abdominal exam: PRESENT: normal bowel sounds, soft. ABSENT: distended, guarding, rebound, tenderness Extremities exam: ABSENT: clubbing, pedal edema Musculoskeletal exam: PRESENT: normal inspection. ABSENT: deformity Neurological exam: PRESENT: alert, awake, oriented to person, oriented to place, oriented to situation, CN II-XII grossly intact, motor sensory deficit, other - His speech is chronically dysarthric and he has some trouble walking but that is improving, and he has use of his upper extremities but his fine motor movements are somewhat inhibited Psychiatric exam: PRESENT: appropriate affect, normal mood Skin exam: PRESENT: dry, warm Results Laboratory Results: 07/24/18 11:00 07/24/18 11:00 07/24/18 07/24/18 07/24/18 11:00 11:00 13:22 WBC 6.5 RBC 3.74 L Hgb 11.1 L Hct 32.7 L MCV 87 MCH 29.8 MCHC 34.1 RDW 13.7 Plt Count 238 Seg Neutrophils % 65.8 Lymphocytes % 18.8 Monocytes % 6.6 Eosinophils % 7.9 H Basophils % 0.9 Absolute Neutrophils 4.3 Absolute Lymphocytes 1.2 Absolute Monocytes 0.4 Absolute Eosinophils 0.5 Absolute Basophils 0.1 Sodium 143.7 Potassium 3.8 Chloride 107 Carbon Dioxide 26 Anion Gap 11 BUN 56 H Creatinine 2.43 H Est GFR ( Amer) 32 L Est GFR (Non-Af Amer) 27 L Glucose 240 H Calcium 9.2 Total Bilirubin 0.5 AST 28 ALT 13 L Alkaline Phosphatase 97 Total Protein 7.4 Albumin 3.9 Lipase 101.2 Urine Color STRAW Urine Appearance CLEAR Urine pH 6.0 [address] [place] 1.008 Urine Protein 30 H Urine Glucose (UA) NEGATIVE Urine Ketones NEGATIVE Urine Blood NEGATIVE Urine Nitrite NEGATIVE Ur Leukocyte Esterase MODERATE H Urine WBC (Auto) 22 Urine RBC (Auto) 2 07/24/18 07/24/18 11:00 11:00 Creatine Kinase 231 H CK-MB (CK-2) 1.30 Troponin I 0.019 Impressions: Chest X-Ray 07/24/18 11:38 IMPRESSION: NO ACUTE RADIOGRAPHIC FINDING IN THE CHEST. Head CT 07/24/18 13:01 IMPRESSION: Chronic atrophy and small-vessel ischemic change. Old right occipital lobe infarct. No acute intracranial event. EVIDENCE OF ACUTE STROKE: NO. Assessment and Plan - Diagnosis (1) Seizure Is this a current diagnosis for this admission?: Yes Plan: I do not believe that he has a urinary tract infection, therefore I do not think that is the cause for his seizure. He was not hypoglycemic for EMS. His sister dosed his insulin for him and says she used a pen, so he did not accidentally overdose himself. He is not going through withdrawal of any medication that would have caused this to happen. He does have a large old right occipital str betty, and the scar tissue could be predisposing him to seizures. His sister said he has had one before, and was put on medication for a couple of months, but the EEG apparently was negative for epileptic activity and therefore the medication was discontinued. He has been given a dose of Keppra here. I am going to order an EEG and an MRI of the brain. (2) Acute on chronic kidney failure Qualifiers: Acute renal failure type: unspecified Chronic kidney disease stage: stage 4 (severe) Qualified Code(s): N17.9 - Acute kidney failure, unspecified; N18.4 - Chronic kidney disease, stage 4 (severe) Is this a current diagnosis for this admission?: Yes Plan: His Lasix had been increased for a few days I think he got dehydrated. We will hold his Lasix today given some IV fluids and repeat his labs in the morning. When his creatinine normalizes we can restart his Lasix. (3) Chronic systolic (congestive) heart failure Is this a current diagnosis for this admission?: Yes Plan: Not acutely exacerbated. We will continue his usual medications with exception of the Lasix as noted above. (4) History of CVA with residual deficit Is this a current diagnosis for this admission?: Yes Plan: Continue his aspirin, he is not on a statin at home because of his history of rhabdomyolysis. (5) Tobacco abuse Is this a current diagnosis for this admission?: Yes Plan: Strongly encouraged smoking cessation. - Time Time Spent with patient: 35 or more minutes - Inpatient Certification Based on my medical assessment, after consideration of the patient's comorbidities, presenting symptoms, or acuity I expect that the services needed warrant INPATIENT care.: Yes I certify that my determination is in accordance with my understanding of Medicare's requirements for reasonable and necessary INPATIENT services [42 CFR 412.3e].: Yes Medical Necessity: Need Close Monitoring Due to Risk of Patient Decompensation, Need For Continuous Telemetry Monitoring, Need for Neurological Checks
[2018-07-24] MEDS: NORMAL SALINE 1000 ML 1,000 ML IV PRN (18:05)
--- NOTE | 2018-07-24 18:18 | ADVANCED CARE ---
- Diagnosis (1) Seizure Diagnosis Current: Yes (2) Acute on chronic kidney failure Diagnosis Current: Yes (3) Chronic systolic (congestive) heart failure Diagnosis Current: Yes (4) History of CVA with residual deficit Diagnosis Current: Yes Attendance: sister Resuscitation Status: Full Code Discussion: Patient said he wants everything done to preserve his life and his sister concurs Time Spent: 10 minutes
[2018-07-24] MEDS ORDERED: LORAZEPAM INJ 2 MG/1 ML VIAL IV ONE (18:56)
--- NOTE | 2018-07-24 20:56 | RADIOLOGY REPORT (SQ) ---
EXAM DESCRIPTION: MRI brain without contrast CLINICAL HISTORY: 68 years Male; seizure TECHNIQUE: Noncontrast MRI brain with sagittal T1, axial FLAIR, axial T2, axial diffusion images. COMPARISON: CT 07/24/2018 FINDINGS: There is significant motion artifact. Note that this is a limited exam, with incomplete protocol and significant motion artifact on many of the images. There is a band of diffusion restriction in the deep left parieto-occipital white matter, extending from the margin of the left occipital horn superiorly into the left frontal white matter, 4 mm wide by approximately 16 mm long. No associated mass effect. No obvious hematoma, although gradient echo images could not be obtained. No additional foci of diffusion restriction. Right occipital encephalomalacia is consistent with old infarct. There are multiple old lacunar infarcts in the yevgeniy and thalami bilaterally. Old focal lacunar infarcts are also noted in the right putamen and posterior margin of the left putamen. Extensive focal and confluent areas of increased T2 signal in the cerebral white matter bilaterally are typical for severe chronic small vessel disease. There is no midline shift or mass effect. IMPRESSION: 1. Focal acute deep left parietal/occipital infarct, approximately 4 x 4 by 16 mm. No associated mass effect. 2. Numerous old lacunar infarcts in the yevgeniy, thalami, and putamen bilaterally. Old right occipital infarct. 3. Severe chronic ischemic cerebral white matter changes
[2018-07-24] MEDS: DOCUSATE SODIUM 100 MG CAPSULE PO SCH (21:41)
[2018-07-24] MEDS: PANTOPRAZOLE SODIUM 20 MG TABLET.DR PO SCH (21:41)
[2018-07-24] MEDS: SACUBITRIL/VALSARTAN 24 MG/26 MG TABLET PO SCH (22:21)
[2018-07-24] MEDS: HEPARIN SOD (PORCINE) 5,000 UNIT/ML 1 ML SYRINGE SUBCUT SCH (22:21)
[2018-07-24] MEDS: CLONIDINE HCL 0.1 MG TABLET PO SCH (22:21)
[2018-07-25] MEDS: NORMAL SALINE 1000 ML 1,000 ML IV PRN (05:51)
[2018-07-25] MEDS: HEPARIN SOD (PORCINE) 5,000 UNIT/ML 1 ML SYRINGE SUBCUT SCH (05:52)
[2018-07-25 06:25] LABS: HEMATOCRIT 28.3 % (37.9-51.0); HEMOGLOBIN 9.8 g/dL (13.5-17.0); MEAN CORPUSCULAR HEMOGLOBIN 29.8 pg (27.0-33.4); MEAN CORPUSCULAR HGB CONC 34.7 g/dL (32.0-36.0); MEAN CORPUSCULAR VOLUME 86 fl (80-97); PLATELET COUNT 211 10^3/uL (150-450); RED BLOOD COUNT 3.29 10^6/uL (4.35-5.55); RED CELL DISTRIBUTION WIDTH 13.6 % (11.5-14.0)
[2018-07-25 06:36] LABS: ANION GAP 7 (5-19); BLOOD UREA NITROGEN 50 mg/dL (7-20); CALCIUM 8.8 mg/dL (8.4-10.2); CARBON DIOXIDE 26 mmol/L (22-30); CHLORIDE 109 mmol/L (98-107); CREATINE KINASE 219 U/L (55-170); POTASSIUM 3.4 mmol/L (3.6-5.0); SODIUM 142.2 mmol/L (137-145)
[2018-07-25 06:44] LABS: GLUCOSE 37 mg/dL (75-110)
[2018-07-25] MEDS ORDERED: INSULIN GLARGINE,HUM.REC.ANLOG 1,000 UNIT/10 ML VIAL SUBCUT SCH (10:00)
[2018-07-25] MEDS ORDERED: CARVEDILOL 12.5 MG TABLET PO SCH ×2 (10:00→14:00)
[2018-07-25] MEDS ORDERED: [UNRECOGNIZED DRUG - OTHER] SUBCUT SCH (10:00)
[2018-07-25] MEDS ORDERED: (PENDING PHARMACY ID) (Carvedilol [Coreg 25 Mg Tablet] 12.5 MG) PO SCH (10:00)
[2018-07-25] MEDS ORDERED: INSULIN GLARGINE HUM REC ANLOG 22 UNIT SUBCUT SCH (10:00)
[2018-07-25] MEDS ORDERED: DEXTROSE 40% GEL 15 GM TUBE PO PRN ×2 (10:37)
[2018-07-25] MEDS ORDERED: DEXTROSE 50%-WATER 25 GM/50 ML DISP.SYRIN IV PRN ×2 (10:37)
[2018-07-25] MEDS ORDERED: GLUCAGON,HUMAN RECOMB 1 MG INJ IM PRN (10:37)
[2018-07-25] MEDS: AMLODIPINE BESYLATE 10 MG TABLET PO SCH (10:55)
[2018-07-25] MEDS: CLONIDINE HCL 0.1 MG TABLET PO SCH ×2 (10:56→22:21)
[2018-07-25] MEDS: ASPIRIN 81 MG TABLET, CHEWABLE PO SCH (10:56)
[2018-07-25] MEDS: PANTOPRAZOLE SODIUM 20 MG TABLET.DR PO SCH ×2 (10:56→18:27)
[2018-07-25] MEDS: DOCUSATE SODIUM 100 MG CAPSULE PO SCH ×2 (10:56→18:27)
[2018-07-25] MEDS: POLYETHYLENE GLYCOL 3350 POWDER 17 GM/1 PACKET PO SCH (10:57)
[2018-07-25] MEDS: SACUBITRIL/VALSARTAN 24 MG/26 MG TABLET PO SCH ×2 (10:57→22:21)
[2018-07-25] MEDS: ASPIRIN 325 MG TABLET PO SCH (11:01)
[2018-07-25] MEDS: ENOXAPARIN SODIUM INJ 100 MG/1 ML DISP.SYRIN SUBCUT SCH ×2 (11:02→22:22)
--- NOTE | 2018-07-25 11:03 | PDOC PROGRESS REPORT ---
Subjective Progress Note for:: 07/25/18 Subjective:: 68 year old male with a history of insulin-dependent diabetes, ischemic stroke, congestive heart failure, and stage IV chronic kidney disease, who is a current every day smoker was in his usual state of health this morning and ate a breakfast of 2 waffles with syrup and some orange juice, then went to the bathroom to brush his teeth and get himself ready to go to his physical therapy appointment. He took his insulin after he ate, and his sister says that she is the one who draws up his insulin and gives it to him, and she gave him his usual dose. He is not had any other changes in his medications recently. He had been on gabapentin for a couple of months but came off of that over 2 weeks ago. His sister said that he called out from the bathroom and said something was wrong but could not say what, just saying that he did not feel good. She then saw him stare straight ahead and then slouched down in the chair with his eyes closed and had repetitive jerking and twitching motions that lasted for about 2 minutes. There was no loss of bowel or bladder control. He did not bite his tongue. She did not give him anything else to eat or drink until EMS got there, and they check his blood sugar and it was 162. When he got to the ER it was 240, but they told me that they checked again at one point it was down to 51, but I did not see this entered into the computer. His sister tells me that he had had a seizure before during a previous illness when he got septic from an infection on his foot and also had some rhabdomyolysis. His sister tells me that his primary care provider increased his Lasix for 5 days and today was supposed to be the last of that, because he had appeared to have gotten a little fluid overloaded. In the ER his creatinine is elevated a little bit above his baseline which is normally around 2.2. He did not have any significant electrolyte disturbances. His urinalysis had a positive leukocyte esterase but the patient is not had any urinary complaints, fevers, or any signs of infection prior to his presentation. 07/[id number]-pixl-old male with multiple medical problems including diabetes mellitus ischemic stroke, congestive heart failure, stage IV kidney disease daily smoker admitted for possible seizure activity. CT head was negative in the emergency room MRI of the brain was done last night the radiologist report indicates patient has a focal acute deep left parietal/occipital infarct approxi mately 4 into 4 x 16 mm. No associated mass-effect. 2 .numerous old lacunar infarcts in the yevgeniy ,thalami and punctate bilaterally present. There is also old right occipital infarct. Patient is going to be transferred to [facility] stroke protocol is implemented. Patient states he cannot walk at home. He is communicating okay. Able to give date of able to give medical history. Able to swallow water without any problem. Patient was started on aspirin, cholesterol medication, Lovenox therapeutic dose 95 mg/kg every 12 hours. Lipid panel is requested for tomorrow. PT OT social media marketing specialist consult was requested carotid Doppler was requested, echocardiogram was requested. Neurochecks are r equested every 4 hours. Aspiration fall seizure precautions are requested. Reason For Visit: SEIZURE,ACUTE ON CHRONIC KIDNEY INJURY Physical Exam Vital Signs: Temp Pulse Resp BP Pulse Ox 97.4 F 56 L 15 137/62 H 98 07/25/18 10:30 07/25/18 10:30 07/25/18 10:30 07/25/18 10:30 07/25/18 10:30 Intake & Output 07/24/18 07/25/18 07/26/18 06:59 06:59 06:59 Intake Total 1550 Balance 1550 Weight 91.5 kg General appearance: PRESENT: no acute distress Head exam: PRESENT: atraumatic Eye exam: PRESENT: PERRLA Mouth exam: PRESENT: moist, tongue midline Neck exam: ABSENT: carotid bruit, JVD, lymphadenopathy, thyromegaly Respiratory exam: PRESENT: clear to auscultation nathan. ABSENT: rales, rhonchi, wheezes Cardiovascular exam: PRESENT: RRR. ABSENT: diastolic murmur, rubs, systolic murmur GI/Abdominal exam: PRESENT: normal bowel sounds, soft. ABSENT: distended, guarding, mass, organolmegaly, rebound, tenderness Extremities exam: PRESENT: other - Chronic skin changes in the lower extremities. Neurological exam: PRESENT: alert, awake, oriented to place, oriented to time, CN II-XII grossly intact, other - Patient is able to move all his lower extremities without any problem. Patient is still dysarthric. Has a trouble in walking. Results Laboratory Results: 07/25/18 05:40 07/25/18 05:40 07/24/18 07/24/18 07/24/18 11:00 11:00 13:22 WBC 6.5 RBC 3.74 L Hgb 11.1 L Hct 32.7 L MCV 87 MCH 29.8 MCHC 34.1 RDW 13.7 Plt Count 238 Seg Neutrophils % 65.8 Lymphocytes % 18.8 Monocytes % 6.6 Eosinophils % 7.9 H Basophils % 0.9 Absolute Neutrophils 4.3 Absolute Lymphocytes 1.2 Absolute Monocytes 0.4 Absolute Eosinophils 0.5 Absolute Basophils 0.1 Sodium 143.7 Potassium 3.8 Chloride 107 Carbon Dioxide 26 Anion Gap 11 BUN 56 H Creatinine 2.43 H Est GFR ( Amer) 32 L Est GFR (Non-Af Amer) 27 L Glucose 240 H Calcium 9.2 Total Bilirubin 0.5 AST 28 ALT 13 L Alkaline Phosphatase 97 Total Protein 7.4 Albumin 3.9 Lipase 101.2 Urine Color STRAW Urine Appearance CLEAR Urine pH 6.0 Ur Specific [place] 1.008 Urine Protein 30 H Urine Glucose (UA) NEGATIVE Urine Ketones NEGATIVE Urine Blood NEGATIVE Urine Nitrite NEGATIVE Ur Leukocyte Esterase MODERATE H Urine WBC (Auto) 22 Urine RBC (Auto) 2 07/25/18 07/25/18 05:40 05:40 WBC 8.0 RBC 3.29 L Hgb 9.8 L Hct 28.3 L MCV 86 MCH 29.8 MCHC 34.7 RDW 13.6 Plt Count 211 Seg Neutrophils % Lymphocytes % Monocytes % Eosinophils % Basophils % Absolute Neutrophils Absolute Lymphocytes Absolute Monocytes Absolute Eosinophils Absolute Basophils Sodium 142.2 Potassium 3.4 L Chloride 109 H Carbon Dioxide 26 Anion Gap 7 BUN 50 H Creatinine 1.97 H Est GFR ( Amer) 41 L Est GFR (Non-Af Amer) 34 L Glucose 37 L* Calcium 8.8 Total Bilirubin AST ALT Alkaline Phosphatase Total Protein Albumin Lipase Urine Color Urine Appearance Urine pH Ur Specific [place] Urine Protein Urine Glucose (UA) Urine Ketones Urine Blood Urine Nitrite Ur Leukocyte Esterase Urine WBC (Auto) Urine RBC (Auto) 07/24/18 07/24/18 07/25/18 11:00 11:00 05:40 Creatine Kinase 231 H 219 H CK-MB (CK-2) 1.30 Troponin I 0.019 Impressions: Head MRI 07/24/18 00:00 IMPRESSION: 1. Focal acute deep left parietal/occipital infarct, approximately 4 x 4 by 16 mm. No associated mass effect. 2. Numerous old lacunar infarcts in the yevgeniy, thalami, and putamen bilaterally. Old right occipital infarct. 3. Severe chronic ischemic cerebral white matter changes Chest X-Ray 07/24/18 11:38 IMPRESSION: NO ACUTE RADIOGRAPHIC FINDING IN THE CHEST. Head CT 07/24/18 13:01 IMPRESSION: Chronic atrophy and small-vessel ischemic change. Old right occipital lobe infarct. No acute intracranial event. EVIDENCE OF ACUTE STROKE: NO. Assessment and Plan - Diagnosis (1) Acute ischemic stroke Is this a current diagnosis for this admission?: Yes Plan: 07/25/2018-patient has acute stroke involving the left parietal/occipital lobe. Stroke protocol was implemented. Plan to transfer the patient to [facility]. Started on Lovenox 95 mg/kg every 12 hours. Aspirin, atorvastatin was started neur ochecks are requested aspiration fall seizure precautions are requested swallowing evaluation was requested lipid panel was requested for the morning. Carotid Doppler and echocardiogram was also requested. (2) Hypoglycemia Is this a current diagnosis for this admission?: Yes Plan: 07/25/2018-patient blood sugar this morning is 31 he is on insulin sliding scale and Lantus 22 units daily Lantus was discontinued and will continue the sliding scale for now and hemoglobin A1c was requested. Plan to check the blood sugars before meals and at bedtime with insulin sliding scale coverage. Hypoglycemia protocol was implemented. Dietary consult will be requested. (3) Seizure Is this a current diagnosis for this admission?: Yes Plan: I do not believe that he has a urinary tract infection, therefore I do not think that is the cause for his seizure. He was not hypoglycemic for EMS. His sister dosed his insulin for him and says she used a pen, so he did not accidentally overdose himself. He is not going through withdrawal of any medication that would have caused this to happen. He does have a large old right occipital stroke, and the scar tissue could be predisposing him to seizures. His sister said he has had one before, and was put on medication for a couple of months, but the EEG apparently was negative for epileptic activity and therefore the m edication was discontinued. He has been given a dose of Keppra here. I am going to order an EEG and an MRI of the brain. 07/25/2018-patient came in with a seizure activity probably secondary to new stroke in the brain. Going to start him on Keppra 500 mg p.o. twice daily and order for EEG is placed by Dr. Marcum already. (4) Acute on chronic kidney failure Qualifiers: Acute renal failure type: unspecified Chronic kidney disease stage: stage 4 (severe) Qualified Code(s): N17.9 - Acute kidney failure, unspecified; N18.4 - Chronic kidney disease, stage 4 (severe) Is this a current diagnosis for this admission?: Yes Plan: His Lasix had been increased for a few days I think he got dehydrated. We will hold his Lasix today given some IV fluids and repeat his labs in the morning. When his creatinine normalizes we can restart his Lasix. 07/25/2018-patient admitted with a serum creatinine of 2.2 and it came down to 1.97 today. Patient has history of stage IV kidney disease acute on chronic renal insufficiency is improving. (5) Anemia Qualifiers: Anemia type: due to chronic kidney disease Chronic kidney disease stage: stage 3 (moderate) Qualified Code(s): N18.3 - Chronic kidney disease, stage 3 (moderate); D63.1 - Anemia in chronic kidney disease; D63.1 - Anemia in chronic kidney disease Is this a current diagnosis for this admission?: No Plan: 07/25/2018-patient has history of anemia of chronic disease most likely secondary to chronic kidney disease. Hemoglobin is 9.8. (6) History of CVA with residual deficit Is this a current diagnosis for this admission?: Yes Plan: Continue his aspirin, he is not on a statin at home because of his history of rhabdomyolysis. 07/25/2018-MRI of the brain shows multiple old infarcts in association with a new infarct involving the left parietal and occipital lobe. Plan to start him on aspirin, statins. (7) Elevated CK Is this a current diagnosis for this admission?: Yes Plan: 07/25/2018-patient came in with slightly elevated CK of 2 4900 improved to 219. Elevated CK most likely secondary to seizure activity. (8) Chronic systolic (congestive) heart failure Is this a current diagnosis for this admission?: Yes Plan: Not acutely exacerbated. We will continue his usual medications with exception of the Lasix as noted above. 07/25/2018-patient has history of congestive heart failure. Most likely chronic systolic heart failure. Echocardiogram was requested. Patient is not in fluid overload. (9) Bradycardia Is this a current diagnosis for this admission?: Yes Plan: 07/25/2018-patient's heart rate is 56 this morning, patient is presently on Coreg 12.5 mg p.o. twice daily. Plan is to decrease the Coreg to 3.125 mg twice a day. (10) Hypokalemia Is this a current diagnosis for this admission?: Yes Plan: 07/25/2018 serum potassium level is 3.4 to give her 40 mg of p.o. potassium today. - Time Time Spent with patient: 35 or more minutes Smoking Cessation Education: over 10 minutes Medications reviewed and adjusted accordingly: Yes Anticipated discharge: SNF
[2018-07-25] MEDS ORDERED: ENOXAPARIN SODIUM INJ 100 MG/1 ML DISP.SYRIN SUBCUT SCH (14:36)
[2018-07-25] MEDS: INSULIN LISPRO 100 UNIT/ML 3 ML VIAL SUBCUT SCH ×3 (14:59→22:21)
[2018-07-25] MEDS: LEVETIRACETAM 500 MG TABLET PO SCH ×2 (15:24→22:22)
[2018-07-25] MEDS: NICOTINE 21 MG/24 HR PATCH.TD24 TD SCH (15:25)
[2018-07-25] MEDS: ATORVASTATIN CALCIUM 10 MG TABLET PO SCH (22:21)
[2018-07-26 06:47] LABS: HEMATOCRIT 30.4 % (37.9-51.0); HEMOGLOBIN 10.5 g/dL (13.5-17.0); MEAN CORPUSCULAR HEMOGLOBIN 29.7 pg (27.0-33.4); MEAN CORPUSCULAR HGB CONC 34.6 g/dL (32.0-36.0); MEAN CORPUSCULAR VOLUME 86 fl (80-97); PLATELET COUNT 193 10^3/uL (150-450); RED BLOOD COUNT 3.54 10^6/uL (4.35-5.55); RED CELL DISTRIBUTION WIDTH 13.2 % (11.5-14.0); WHITE BLOOD COUNT 5.7 10^3/uL (4.0-10.5)
[2018-07-26 07:11] LABS: CHOLESTEROL 126.11 mg/dL (0-200); TRIGLYCERIDES 50 mg/dL (<150)
[2018-07-26 07:15] LABS: ALANINE AMINOTRANSFERASE 21 U/L (21-72); ALBUMIN 3.2 g/dL (3.5-5.0); ALKALINE PHOSPHATASE 102 U/L (38-126); ANION GAP 8 (5-19); ASPARTATE AMINO TRANSFERASE 15 U/L (17-59); BILIRUBIN,DIRECT 0.2 mg/dL (0.0-0.4); BILIRUBIN,TOTAL 0.2 mg/dL (0.2-1.3); BLOOD UREA NITROGEN 47 mg/dL (7-20); CALCIUM 8.8 mg/dL (8.4-10.2); CARBON DIOXIDE 27 mmol/L (22-30); CHLORIDE 108 mmol/L (98-107); GLUCOSE 243 mg/dL (75-110); POTASSIUM 3.9 mmol/L (3.6-5.0); TOTAL PROTEIN 6.2 g/dL (6.3-8.2)
[2018-07-26 07:22] LABS: DIRECT LDL 87 mg/dL (<100)
[2018-07-26] MEDS: INSULIN LISPRO 100 UNIT/ML 3 ML VIAL SUBCUT SCH ×4 (08:23→21:52)
[2018-07-26] MEDS: NICOTINE 21 MG/24 HR PATCH.TD24 TD SCH (10:09)
[2018-07-26] MEDS: LEVETIRACETAM 500 MG TABLET PO SCH ×2 (10:10→21:51)
[2018-07-26] MEDS: AMLODIPINE BESYLATE 10 MG TABLET PO SCH (10:10)
[2018-07-26] MEDS: CLONIDINE HCL 0.1 MG TABLET PO SCH (10:10)
[2018-07-26] MEDS: CARVEDILOL 3.125 MG TABLET PO SCH (10:10)
[2018-07-26] MEDS: PANTOPRAZOLE SODIUM 20 MG TABLET.DR PO SCH ×2 (10:10→21:50)
[2018-07-26] MEDS: POLYETHYLENE GLYCOL 3350 POWDER 17 GM/1 PACKET PO SCH ×2 (10:11→11:04)
[2018-07-26] MEDS: DOCUSATE SODIUM 100 MG CAPSULE PO SCH ×2 (10:11→20:03)
[2018-07-26] MEDS: SACUBITRIL/VALSARTAN 24 MG/26 MG TABLET PO SCH ×2 (10:12→21:50)
[2018-07-26] MEDS: ASPIRIN 81 MG TABLET, CHEWABLE PO SCH (10:16)
[2018-07-26] MEDS: ENOXAPARIN SODIUM INJ 100 MG/1 ML DISP.SYRIN SUBCUT SCH (10:16)
[2018-07-26] MEDS: ASPIRIN 325 MG TABLET PO SCH (10:56)
--- NOTE | 2018-07-26 12:54 | PROGRESS NOTE E ---
Progress Note NAME: FLAG THIBODEAUX JR : 1950 AGE: 68Y DATE: 07/26/2018 ROOM: 331 SUBJECTIVE: The patient was out of bed to the bedside chair and did get back into the bed. Appears to be doing much better today in comparison to yesterday. The patient has had no episodes of vomiting nor diarrhea. No further episodes of seizures. The patient states that overall he is feeling better. Does not voice any other concerns at this time. REVIEW OF SYSTEMS: The rest of the review of systems is negative. MEDICATION: Reviewed. OBJECTIVE: GENERAL: The patient is a 68-year-old -Russian male who is awake, alert and oriented to person, place, time and situation. He is verbal and conversational. He does not appear to be distressed. VITAL SIGNS: Temperature is 97.7, pulse 50, respirations 18, blood pressure 134/69, oxygen saturation is 100% on room air. SKIN: Warm and dry. No rash. He is not diaphoretic. HEENT: Pupils equal, round, reactive to light and accommodation. Conjunctivae pink. There is no evidence of JVP. CVS: Heart is regular. There is no murmur or rub. CHEST: Clear, symmetrical, unlabored. ABDOMEN: Soft, nontender. EXTREMITIES: No clubbing, cyanosis, edema. NEUROLOGICAL: The patient mainly has a generalized weakness. Some dysarthria is noted. DIAGNOSTICS: Lab values are as follows: Hematology obtained on 07/26/2018: WBCs are 5.7, hemoglobin is 12.5, hematocrit is 30.4, platelet count is 193,000. Chemistry obtained on 07/26/2018: Sodium is 143, potassium 2.9, chloride is 128, carbon dioxide is 27, BUN 47, creatinine is 1.9. Glucose 243, calcium is 8.8, magnesium is 2.1. Bilirubin is 0.2, AST 15, ALT 21, alk phos 102, total protein 6.2, albumin 3.2. IMPRESSION AND PLAN: 1. ACUTE ISCHEMIC STROKE. The patient continues on aspirin and statin therapy. Continue with aspiration and fall precautions. The patient will be evaluated by Speech, Occupational and Physical Therapy. 2. CEREBROVASCULAR DISEASE. This is a chronic issue for the patient. Will continue aspirin therapy. It appears the patient has been on Pletal on an outpatient basis. 3. HYPOGLYCEMIA. Will continue just sliding scale coverage and follow. 4. SEIZURES, POSSIBLY DUE TO STROKE ITSELF. The patient's EEG was apparently negative for epileptic activity. He was started on Keppra. 5. ACUTE ON CHRONIC KIDNEY DISEASE. The patient was hydrated and his creatinine is 1.9. The patient lives at stage 4. 6. ANEMIA OF CHRONIC DISEASE. The patient's hemoglobin is at baseline. 7. ELEVATED CK, MOST LIKELY DUE TO THE PATIENT'S SEIZURE ACTIVITY. 8. CHRONIC SYSTOLIC CONGESTIVE HEART FAILURE. The patient has no evidence of acute exacerbation. 9. BRADYCARDIA. The patient remains bradycardic. His Coreg was reduced to 3.125. Will try to wean him from clonidine. 10. HYPOKALEMIA. This was repleted. DISPOSITION: The patient is a FULL CODE. Pending patient symptomatology and diagnostic findings, we will reevaluate in the a.m. Time spent on this followup, including assessment, plan, physical examination, patient education and review of records, is 25 minutes. DICTATING PHYSICIAN: ROMERO COTA NP [id number] PHY#: [id number] ID: [id number] JOB#: [id number] ACCT: [id number] cc: >
--- NOTE | 2018-07-26 15:55 | RADIOLOGY REPORT (SQ) ---
EXAM DESCRIPTION: CAROTID DOPPLER COMPLETED DATE/TIME: 07/26/2018 3:37 pm REASON FOR STUDY: stroke COMPARISON: None. TECHNIQUE: Grayscale ultrasound, Doppler velocity and spectra, and color Doppler images acquired of the extra-cranial carotid and vertebral arteries. Images stored on PACS. LIMITATIONS: Body habitus. FINDINGS: RIGHT CAROTID CCA Velocities: Within normal limits. ICA Velocities Peak systolic 0.75 m/s. End diastolic 0.27 m/s. Proximal ICA/CCA peak systolic ratio 1.5. Spectra normal. No significant plaque. LEFT CAROTID CCA Velocities: Within normal limits. ICA Velocities Peak systolic 0.58 m/s. End diastolic 0.19 m/s. Proximal ICA/CCA peak systolic ratio 0.8. Spectra normal. No significant plaque. VERTEBRAL ARTERIES: Antegrade flow. Normal waveforms. SUBCLAVIAN ARTERIES: Not imaged. OTHER: No other significant finding. IMPRESSION: NO HEMODYNAMICALLY SIGNIFICANT STENOSIS. COMMENT: Quality ID #[id number]: Velocity criteria are extrapolated from the diameter data as defined by t he Society of Radiologists in Ultrasound Consensus Conference. Radiology 2003: 229; 340-346. TECHNICAL DOCUMENTATION: JOB ID: [id number] [employer]- All Rights Reserved Reading location - IP/workstation name: [email or web address]
[2018-07-26] MEDS: ATORVASTATIN CALCIUM 10 MG TABLET PO SCH (21:50)
[2018-07-27 07:10] LABS: HEMATOCRIT 30.1 % (37.9-51.0); HEMOGLOBIN 10.4 g/dL (13.5-17.0); MEAN CORPUSCULAR HEMOGLOBIN 29.7 pg (27.0-33.4); MEAN CORPUSCULAR HGB CONC 34.4 g/dL (32.0-36.0); MEAN CORPUSCULAR VOLUME 86 fl (80-97); PLATELET COUNT 208 10^3/uL (150-450); RED BLOOD COUNT 3.49 10^6/uL (4.35-5.55); RED CELL DISTRIBUTION WIDTH 13.2 % (11.5-14.0); WHITE BLOOD COUNT 5.9 10^3/uL (4.0-10.5)
[2018-07-27 07:38] LABS: ANION GAP 6 (5-19); BLOOD UREA NITROGEN 43 mg/dL (7-20); CALCIUM 9.2 mg/dL (8.4-10.2); CARBON DIOXIDE 26 mmol/L (22-30); CHLORIDE 112 mmol/L (98-107); GLUCOSE 144 mg/dL (75-110); POTASSIUM 3.8 mmol/L (3.6-5.0); SODIUM 143.8 mmol/L (137-145)
[2018-07-27] MEDS: INSULIN LISPRO 100 UNIT/ML 3 ML VIAL SUBCUT SCH ×4 (07:48→22:01)
[2018-07-27] MEDS: POLYETHYLENE GLYCOL 3350 POWDER 17 GM/1 PACKET PO SCH (09:00)
[2018-07-27] MEDS: CLONIDINE HCL 0.1 MG TABLET PO SCH (09:44)
[2018-07-27] MEDS: ASPIRIN 325 MG TABLET PO SCH (09:44)
[2018-07-27] MEDS: AMLODIPINE BESYLATE 10 MG TABLET PO SCH (09:45)
[2018-07-27] MEDS: PANTOPRAZOLE SODIUM 20 MG TABLET.DR PO SCH ×2 (09:45→17:18)
[2018-07-27] MEDS: DOCUSATE SODIUM 100 MG CAPSULE PO SCH ×2 (09:45→17:18)
[2018-07-27] MEDS: CARVEDILOL 3.125 MG TABLET PO SCH (09:45)
[2018-07-27] MEDS: NICOTINE 21 MG/24 HR PATCH.TD24 TD SCH (09:45)
[2018-07-27] MEDS: LEVETIRACETAM 500 MG TABLET PO SCH ×2 (09:45→22:06)
[2018-07-27] MEDS: SACUBITRIL/VALSARTAN 24 MG/26 MG TABLET PO SCH (09:45)
--- NOTE | 2018-07-27 11:44 | PROGRESS NOTE E ---
Progress Note NAME: FLAG THIBODEAUX JR : 1950 AGE: 68Y DATE: 07/27/2018 ROOM: [facility] SUBJECTIVE: The patient is currently lying in bed. He states that he is willing to go to rehab. He has been in the past, according to the patient. The patient denies any nausea, vomiting, diarrhea, no shortness of breath, dizziness, chest pain. His appetite has been okay. Still continues to have dysarthria. Has worked with therapy. He does not voice any concerns at this time. The patient is a 68-year-old -[place] male with a past medical history of chronic kidney disease, heart failure, as well as cerebrovascular disease. The patient was admitted on 07/24/2018 due to seizure activity. Initial head CT was found to be unremarkable, however, the patient's follow-up head MRI revealed an acute CVA and the patient was transferred to [facility]. The patient does have significant dysarthria associated with this and has been followed by the therapies and is awaiting rehab placement. REVIEW OF SYSTEMS: The rest of the review of systems is negative. MEDICATION: Reviewed. OBJECTIVE: GENERAL: The patient is a 68-year-old -[place] male who is awake, alert. He is oriented to person, place, time and situation. He does not appear to be distressed. VITAL SIGNS: Temperature is 97.7, pulse 59, respirations 14, blood pressure 175/66, oxygen saturation is 100% on room air. SKIN: Warm and dry. No rash. He is not diaphoretic. HEENT: Pupils equal, round, reactive to light and accommodation. Conjunctivae pink. There is no evidence of JVP. CVS: Heart is regular. There is no murmur or rub. CHEST: Clear, symmetrical, unlabored. ABDOMEN: Soft, nontender. EXTREMITIES: No clubbing, cyanosis, edema. PSYCHIATRIC: Appropriate affect, pleasant mood. DIAGNOSTICS: Lab values are as follows: Hematology obtained on 07/27/2018: WBCs are 5.9, hemoglobin is 10.4, hematocrit is 30.1, platelet count is 308,000. Chemistry obtained on 07/27/2018: Sodium is 143, potassium 3.8, chloride is 112, carbon dioxide is 26, BUN 46, creatinine is 1.68. Glucose 144, calcium is 9.2. IMPRESSION AND PLAN: 1. ACUTE ISCHEMIC STROKE. The patient was on Pletal outpatient therapy. He continues on aspirin as well as statin. Continue speech, occupational, and physical therapy. 2. CEREBROVASCULAR DISEASE. This is a chronic issue for the patient. The patient has been allowed permissive hypertension. We will begin to correct his blood pressure. 3. HYPOGLYCEMIA. Resolved. Continue sliding scale. 4. SEIZURES, POSSIBLY DUE TO STROKE EFFECT. The patient's EEG was negative for epileptic activity. He was started on Keppra though. 5. ACUTE ON CHRONIC KIDNEY DISEASE. The patient was hydrated. He is baseline stage-IV and continues to improve. 6. ANEMIA OF CHRONIC DISEASE. The patient's hemoglobin is stable. 7. ELEVATED CK, MOST LIKELY IN THE SETTING OF SEIZURE ACTIVITY. 8. CHRONIC SYSTOLIC CONGESTIVE HEART FAILURE. The patient has no evidence of acute exacerbation. 9. BRADYCARDIA. The patient remains bradycardic. His Coreg was reduced to 3.125. Will try to wean him from clonidine as well. 10. HYPOKALEMIA. This was repleted. DISPOSITION: The patient is a FULL CODE. Pending patient symptomatology and diagnostic findings, we will reevaluate in the a.m. Time spent on this followup, including assessment, plan, physical examination, patient education and review of records, is 25 minutes. DICTATING PHYSICIAN: ROMERO COTA NP [id number] PHY#: [id number] ID: [id number] JOB#: [id number] ACCT: [id number] cc: >
[2018-07-27] MEDS: CILOSTAZOL 100 MG TABLET PO SCH (17:18)
[2018-07-27] MEDS: SACUBITRIL/VALSARTAN 49 MG/51 MG TABLET PO SCH (17:18)
--- NOTE | 2018-07-27 19:44 | NEURO WORKBENCH EEG REPORT ---
Medications: Norvasc, Lipitor, Coreg, Keppra, Colace, Nicoderm, Protonix, Miralax, Entresto History: This is a 68 year old male with a history of cardiac arrhythmia s/p defibrillator placement and subsequent removal, HTN, Hypercholesterolemia, DM, Chronic Kidney Disease, COPD, Anxiety, and peripheral neuropathy. The patient reportedly woke up in the hospital today and was told he had had a seizure. This EEG was requested for evaluation of epileptiform activity. EEG Interpretation: This EEG was recorded during wakefulness and stage I sleep. The awake EEG was largely obscured with myogenic artifact making it overall unreliable for interpretation; there were also frequent periods of eyelid flutter. The background EEG was very low amplitude throughout. Rarely 8-9 Hz alpha activity appeared present in the left hemisphere (which had slightly less artifact in the occipital traces). Photic stimulation resulted in more prominent myogenic artifact obscuring the record. There was no well developed posterior dominant rhythm. The 01 lead showed 60 Hz artifact throughout the procedure. Stage I sleep was recorded and the myogenic artifact resolved. Stage I sleep was characterized by mixed theta-delta activity, but no definitive vertex waves. There was EKG artifact noted in the temporal channels (left much moreso than right). No sleep spindles were seen. There were no epileptiform abnormalities (no sharp waves and no spikes). There were no seizures. The EKG showed a regular rhythm with approximately 60 beats per minute. EEG Impression This EEG is markedly limited due to the prominent myogenic artifact obscuring the wakefulness portion of the recording making the EEG unreliable for interpretation at those times, and the very low amplitude background electrocerebral activity. There was no epileptiform activity or seizures noted. A single normal routine EEG does not rule out the possibility of epilepsy. If there is high clinical suspicion for epilepsy, then additional EEG evaluation should be considered with a sleep-deprived EEG or more prolonged EEG monitoring especially given the limitations of this EEG due to artifact as noted above. INTERPRETING NEUROLOGIST: MD NEIDA Selby
--- NOTE | 2018-07-27 21:21 | XCELERA REPORT ---
[address] [address] Transthoracic Echocardiogram Report Name: MORELIA FLAG THIBODEAUX JR Age: 68 yrs Gender: Male : 1950 Patient Status: Inpatient Patient Location: [address] [place] [address] Study Date: 07/26/2018 02:35 PM Height: 75 in Weight: 201 lb BSA: 2.2 m2 Procedure: A two-dimensional transthoracic echocardiogram with color flow Doppler was performed. The study was technically difficult with many images being suboptimal in quality. Reason For Study: CVA History: CVA. Ordering Physician: AVERY FRANKEL Performed By: Jake Elmore Interpretation Summary There is no obvious cardiac source of embolus noted on this transthoracic echocardiogram. Follow-up with a PAM is suggested if cardiac source is still suspected. The left ventricle is normal in size. There is mild to moderate concentric left ventricular hypertrophy. LV EF is 60% The left ventricular ejection fraction is within normal limits. Doppler measurements suggest impaired left ventricular relaxation, which is associated with grade I/IV or mild diastolic dysfunction The left ventricular wall motion is normal. There is no thrombus. Cannot assess for ASD,VSD , or . The right ventricle is not well visualized secondary to technical limitations Right atrium not well visualized secondary to technical limitations The left atrial size is normal. There is no evidence of mitral valve prolapse. There is no vegetation seen on the mitral valve. There is no mitral valve stenosis. There is a mild amount of mitral regurgitation There is no aortic valvular vegetation. There is no aortic valve stenosis There is no LVOT obstruction. No aortic regurgitation is present. There is no tricuspid stenosis. There is a trace amount of tricuspid regurgitation Right ventricular systolic pressure is normal. RVSP is 22 to 27 mm of Hg , with RA mean of 5 to 10. There is no pulmonic valvular stenosis. There is no pulmonic valvular regurgitation. The inferior vena cava appeared normal and decreased > 50% with respiration (RAP 5-10 mmHg) The aortic root is not well visualized. The aortic root is mildly dilated There is no pericardial effusion. There is no obvious cardiac source of embolus noted on this transthoracic echocardiogram. Follow-up with a PAM is suggested if cardiac source is still suspected MMode/2D Measurements & Calculations RVDd: 4.1 cm LVIDd: 5.0 cm FS: 29.0 % Ao root diam: 3.8 cm IVSd: 1.5 cm LVIDs: 3.6 cm EDV(Teich): 120.5 ml Ao root area: 11.4 cm2 LVPWd: 1.4 cm ESV(Teich): 53.7 ml LA dimension: 3.7 cm EF(Teich): 55.4 % LVOT diam: 1.9 cm LVOT area: 2.8 cm2 Doppler Measurements & Calculations MV E max bib: MV P1/2t max bib: Ao V2 max: LV V1 max P.3 cm/sec 73.8 cm/sec 85.1 cm/sec 1.6 mmHg MV A max bib: MV P1/2t: 80.2 msec Ao max P.9 mmHg LV V1 max: 73.5 cm/sec MVA(P1/2t): 2.7 cm2 SCARLETT(V,D): 2.1 cm2 64.2 cm/sec MV E/A: 0.72 MV dec slope: 269.7 cm/sec2 MV dec time: 0.30 sec PA V2 max: TR max bib: MV P1/2t-pr_phl: 73.0 cm/sec 203.6 cm/sec 80.2 msec PA max P.1 mmHgTR max P.6 mmHg Left Ventricle The left ventricle is normal in size. There is mild to moderate concentric left ventricular hypertrophy. LV EF is 60%. The left ventricular ejection fraction is within normal limits. Doppler measurements suggest impaired left ventricular relaxation, which is associated with grade I/IV or mild diastolic dysfunction. The left ventricular wall motion is normal. There is no thrombus. Cannot assess for ASD,VSD , or . Right Ventricle The right ventricle is not well visualized secondary to technical limitations. Atria Right atrium not well visualized secondary to technical limitations. The left atrial size is normal. Mitral Valve There is no evidence of mitral valve prolapse. There is no vegetation seen on the mitral valve. There is no mitral valve stenosis. There is a mild amount of mitral regurgitation. Aortic Valve There is no aortic valvular vegetation. There is no aortic valve stenosis. There is no LVOT obstruction. No aortic regurgitation is present. Tricuspid Valve There is no tricuspid stenosis. There is a trace amount of tricuspid regurgitation. Right ventricular systolic pressure is normal. RVSP is 22 to 27 mm of Hg , with RA mean of 5 to 10. Pulmonic Valve There is no pulmonic valvular stenosis. There is no pulmonic valvular regurgitation. Great Vessels The aortic root is not well visualized. The aortic root is mildly dilated. The inferior vena cava appeared normal and decreased > 50% with respiration (RAP 5-10 mmHg). Effusions There is no pericardial effusion. : AVERY FRANKEL > Yelitza Tatum
[2018-07-27] MEDS ORDERED: ATORVASTATIN CALCIUM 40 MG TABLET PO SCH (22:00)
[2018-07-28 05:49] LABS: HEMATOCRIT 29.5 % (37.9-51.0); HEMOGLOBIN 10.3 g/dL (13.5-17.0); MEAN CORPUSCULAR HEMOGLOBIN 29.7 pg (27.0-33.4); MEAN CORPUSCULAR HGB CONC 34.8 g/dL (32.0-36.0); MEAN CORPUSCULAR VOLUME 85 fl (80-97); PLATELET COUNT 212 10^3/uL (150-450); RED BLOOD COUNT 3.46 10^6/uL (4.35-5.55); RED CELL DISTRIBUTION WIDTH 13.4 % (11.5-14.0)
[2018-07-28 06:21] LABS: ANION GAP 9 (5-19); BLOOD UREA NITROGEN 36 mg/dL (7-20); CARBON DIOXIDE 26 mmol/L (22-30); CHLORIDE 108 mmol/L (98-107); GLUCOSE 129 mg/dL (75-110); POTASSIUM 3.7 mmol/L (3.6-5.0); SODIUM 143.1 mmol/L (137-145)
[2018-07-28] MEDS: INSULIN LISPRO 100 UNIT/ML 3 ML VIAL SUBCUT SCH ×4 (08:47→22:04)
[2018-07-28] MEDS: ASPIRIN 81 MG TABLET, CHEWABLE PO SCH (09:00)
[2018-07-28] MEDS: DOCUSATE SODIUM 100 MG CAPSULE PO SCH ×2 (09:00→17:30)
[2018-07-28] MEDS: CLONIDINE HCL 0.1 MG TABLET PO SCH (09:00)
[2018-07-28] MEDS: CARVEDILOL 3.125 MG TABLET PO SCH (09:00)
[2018-07-28] MEDS: POLYETHYLENE GLYCOL 3350 POWDER 17 GM/1 PACKET PO SCH (09:01)
[2018-07-28] MEDS: SACUBITRIL/VALSARTAN 49 MG/51 MG TABLET PO SCH ×2 (09:01→17:30)
[2018-07-28] MEDS: NICOTINE 21 MG/24 HR PATCH.TD24 TD SCH (09:01)
[2018-07-28] MEDS: LEVETIRACETAM 500 MG TABLET PO SCH ×2 (09:01→22:05)
[2018-07-28] MEDS: PANTOPRAZOLE SODIUM 20 MG TABLET.DR PO SCH ×2 (09:02→17:30)
[2018-07-28] MEDS: CILOSTAZOL 100 MG TABLET PO SCH ×2 (09:02→17:30)
[2018-07-28] MEDS: AMLODIPINE BESYLATE 10 MG TABLET PO SCH (09:02)
--- NOTE | 2018-07-28 16:15 | PDOC PROGRESS REPORT ---
Subjective Progress Note for:: 07/28/18 Subjective:: This is 68 years old black male patient with multiple comorbidities including diastolic CHF, hyperlipidemia, hypertension, COPD, diabetes mellitus, stage III CKD, everyday smoker and seizure disorder was brought by EMS with statement by the family patient having seizure. EMS reported on arrival to the scene patient was postictal and confused. Reportedly patient had a seizure 2 years ago and was not put on any kind of antiepileptic medication. He is MRI of the brain reported as focal acute deep left parietal/occipital infarct and numerous old lacunar infarcts in the yevgeniy thalami, and putamen bilaterally. Old right occipital infarct. This morning I discussed the case with his sister and she agreed with placement of the patient into short-term acute rehab. Reason For Visit: SEIZURE,ACUTE ON CHRONIC KIDNEY INJURY Physical Exam Vital Signs: Temp Pulse Resp BP Pulse Ox 97.9 F 65 16 149/83 H 98 07/28/18 11:34 07/28/18 14:00 07/28/18 11:34 07/28/18 11:34 07/28/18 11:34 Intake & Output 07/27/18 07/28/18 07/29/18 06:59 06:59 06:59 Intake Total 774 505 453 Output Total 1125 1725 Balance -351 -1220 453 Weight 92.3 kg 89.9 kg General appearance: PRESENT: no acute distress Eye exam: PRESENT: conjunctiva pink Neck exam: ABSENT: carotid bruit, JVD, lymphadenopathy, thyromegaly Respiratory exam: PRESENT: clear to auscultation nathan. ABSENT: rales, rhonchi, wheezes Cardiovascular exam: PRESENT: RRR. ABSENT: diastolic murmur, rubs, systolic murmur GI/Abdominal exam: PRESENT: normal bowel sounds, soft. ABSENT: distended, guarding, mass, organolmegaly, rebound, tenderness Results Laboratory Results: 07/28/18 05:04 07/28/18 05:04 07/28/18 07/28/18 05:04 05:04 WBC 6.0 RBC 3.46 L Hgb 10.3 L Hct 29.5 L MCV 85 MCH 29.7 MCHC 34.8 RDW 13.4 Plt Count 212 Sodium 143.1 Potassium 3.7 Chloride 108 H Carbon Dioxide 26 Anion Gap 9 BUN 36 H Creatinine 1.64 H Est GFR ( Amer) 51 L Est GFR (Non-Af Amer) 42 L Glucose 129 H Calcium 9.0 Magnesium 2.1 07/24/18 07/24/18 07/25/18 11:00 11:00 05:40 Creatine Kinase 231 H 219 H CK-MB (CK-2) 1.30 Troponin I 0.019 Impressions: Head MRI 07/24/18 00:00 IMPRESSION: 1. Focal acute deep left parietal/occipital infarct, approximately 4 x 4 by 16 mm. No associated mass effect. 2. Numerous old lacunar infarcts in the yevgeniy, thalami, and putamen bilaterally. Old right occipital infarct. 3. Severe chronic ischemic cerebral white matter changes Chest X-Ray 07/24/18 11:38 IMPRESSION: NO ACUTE RADIOGRAPHIC FINDING IN THE CHEST. Head CT 07/24/18 13:01 IMPRESSION: Chronic atrophy and small-vessel ischemic change. Old right occipital lobe infarct. No acute intracranial event. EVIDENCE OF ACUTE STROKE: NO. Carotid Doppler Study 07/26/18 00:00 IMPRESSION: NO HEMODYNAMICALLY SIGNIFICANT STENOSIS. Assessment and Plan - Diagnosis (1) Acute ischemic stroke Is this a current diagnosis for this admission?: Yes Plan: Patient will be on aspirin and high intensity Lipitor. Patient qualify for short-term acute rehab. (2) Seizure attack Is this a current diagnosis for this admission?: Yes Plan: We will put the patient on Keppra 500 mg twice daily. (3) Type 2 diabetes mellitus Is this a current diagnosis for this admission?: Yes Plan: We will continue his home medication and sliding scale. (4) Tobacco dependence Is this a current diagnosis for this admission?: Yes Plan: Patient advised and encouraged to quit smoking. (5) Diastolic CHF Qualifiers: Heart failure chronicity: chronic Qualified Code(s): I50.32 - Chronic diastolic (congestive) heart failure Is this a current diagnosis for this admission?: Yes Plan: Compensated (6) COPD (chronic obstructive pulmonary disease) Qualifiers: Emphysema type: unspecified Is this a current diagnosis for this admission?: Yes Plan: Continue as needed bronchodilators (7) Hyperlipidemia Qualifiers: Hyperlipidemia type: unspecified Qualified Code(s): E78.5 - Hyperlipidemia, unspecified Is this a current diagnosis for this admission?: Yes Plan: Continue current regimen (8) Hypertension Qualifiers: Hypertension type: essential hypertension Qualified Code(s): I10 - Essential (primary) hypertension Is this a current diagnosis for this admission?: Yes Plan: We will continue current medication.
[2018-07-28] MEDS: INSULIN GLARGINE,HUM.REC.ANLOG 1,000 UNIT/10 ML VIAL SUBCUT SCH (22:04)
[2018-07-28] MEDS: ATORVASTATIN CALCIUM 40 MG TABLET PO SCH (22:06)
[2018-07-29] MEDS: INSULIN LISPRO 100 UNIT/ML 3 ML VIAL SUBCUT SCH ×4 (08:55→22:24)
[2018-07-29] MEDS: SACUBITRIL/VALSARTAN 49 MG/51 MG TABLET PO SCH ×2 (10:14→17:27)
[2018-07-29] MEDS: CLONIDINE HCL 0.1 MG TABLET PO SCH (10:14)
[2018-07-29] MEDS: CILOSTAZOL 100 MG TABLET PO SCH ×2 (10:14→17:27)
[2018-07-29] MEDS: DOCUSATE SODIUM 100 MG CAPSULE PO SCH ×2 (10:14→17:27)
[2018-07-29] MEDS: PANTOPRAZOLE SODIUM 20 MG TABLET.DR PO SCH ×2 (10:14→17:27)
[2018-07-29] MEDS: LEVETIRACETAM 500 MG TABLET PO SCH ×2 (10:14→22:23)
[2018-07-29] MEDS: ASPIRIN 81 MG TABLET, CHEWABLE PO SCH (10:15)
[2018-07-29] MEDS: NICOTINE 21 MG/24 HR PATCH.TD24 TD SCH (10:15)
[2018-07-29] MEDS: POLYETHYLENE GLYCOL 3350 POWDER 17 GM/1 PACKET PO SCH (10:15)
[2018-07-29] MEDS: AMLODIPINE BESYLATE 10 MG TABLET PO SCH (10:15)
[2018-07-29] MEDS: CARVEDILOL 3.125 MG TABLET PO SCH (10:15)
--- NOTE | 2018-07-29 14:41 | PDOC PROGRESS REPORT ---
Subjective Progress Note for:: 07/29/18 Subjective:: I seen patient while he is actively participating with physical therapy. No new complaints. Patient is potential discharge tomorrow to [facility] for acute inpatient rehab. Reason For Visit: SEIZURE,ACUTE ON CHRONIC KIDNEY INJURY Physical Exam Vital Signs: Temp Pulse Resp BP Pulse Ox 97.5 F 74 14 124/67 99 07/29/18 10:54 07/29/18 10:54 07/29/18 10:54 07/29/18 10:54 07/29/18 10:54 Intake & Output 07/28/18 07/29/18 07/30/18 06:59 06:59 06:59 Intake Total 505 553 Output Total 1725 650 1 Balance -1220 -97 -1 Weight 89.9 kg General appearance: PRESENT: no acute distress Eye exam: PRESENT: conjunctiva pink Mouth exam: PRESENT: moist Neck exam: ABSENT: carotid bruit, JVD, lymphadenopathy, thyromegaly Respiratory exam: PRESENT: clear to auscultation nathan. ABSENT: rales, rhonchi, wheezes Cardiovascular exam: PRESENT: RRR. ABSENT: diastolic murmur, rubs, systolic murmur Neurological exam: PRESENT: alert, awake, oriented to time, oriented to s ituation Results Laboratory Results: 07/28/18 05:04 07/28/18 05:04 07/24/18 07/24/18 07/25/18 11:00 11:00 05:40 Creatine Kinase 231 H 219 H CK-MB (CK-2) 1.30 Troponin I 0.019 Impressions: Head MRI 07/24/18 00:00 IMPRESSION: 1. Focal acute deep left parietal/occipital infarct, approximately 4 x 4 by 16 mm. No associated mass effect. 2. Numerous old lacunar infarcts in the yevgeniy, thalami, and putamen bilaterally. Old right occipital infarct. 3. Severe chronic ischemic cerebral white matter changes Chest X-Ray 07/24/18 11:38 IMPRESSION: NO ACUTE RADIOGRAPHIC FINDING IN THE CHEST. Head CT 07/24/18 13:01 IMPRESSION: Chronic atrophy and small-vessel ischemic change. Old right occipital lobe infarct. No acute intracranial event. EVIDENCE OF ACUTE STROKE: NO. Carotid Doppler Study 07/26/18 00:00 IMPRESSION: NO HEMODYNAMICALLY SIGNIFICANT STENOSIS. Assessment and Plan - Diagnosis (1) Acute ischemic stroke Is this a current diagnosis for this admission?: Yes Plan: Stable (2) Seizure attack Is this a current diagnosis for this admission?: Yes Plan: We will put the patient on Keppra 500 mg twice daily. (3) Type 2 diabetes mellitus Is this a current diagnosis for this admission?: Yes Plan: We will continue his home medication and sliding scale. (4) Tobacco dependence Is this a current diagnosis for this admission?: Yes Plan: Patient advised and encouraged to quit smoking. (5) Diastolic CHF Qualifiers: Heart failure chronicity: chronic Qualified Code(s): I50.32 - Chronic diastolic (congestive) heart failure Is this a current diagnosis for this admission?: Yes Plan: Compensated (6) COPD (chronic obstructive pulmonary disease) Qualifiers: Emphysema type: unspecified Is this a current diagnosis for this admission?: Yes Plan: Continue as needed bronchodilators (7) Hyperlipidemia Qualifiers: Hyperlipidemia type: unspecified Qualified Code(s): E78.5 - Hyperlipidemia, unspecified Is this a current diagnosis for this admission?: Yes Plan: Continue current regimen (8) Hypertension Qualifiers: Hypertension type: essential hypertension Qualified Code(s): I10 - Essential (primary) hypertension Is this a current diagnosis for this admission?: Yes Plan: We will continue current medication.
[2018-07-29] MEDS: INSULIN GLARGINE,HUM.REC.ANLOG 1,000 UNIT/10 ML VIAL SUBCUT SCH (22:23)
[2018-07-29] MEDS: ATORVASTATIN CALCIUM 40 MG TABLET PO SCH (22:23)
[2018-07-30 05:56] VITALS: BP 119/58
--- NOTE | 2018-07-30 08:12 | PDOC TRANSFER SUMMARY ---
General Admission Date/PCP: 07/24/18 16:05 LEXUS GARCIA MD Resuscitation Status: Full Code - Transfer Diagnosis (1) Acute ischemic stroke Is this a current diagnosis for this admission?: Yes (2) Seizure attack Is this a current diagnosis for this admission?: Yes (3) Type 2 diabetes mellitus Is this a current diagnosis for this admission?: Yes (4) Tobacco dependence Is this a current diagnosis for this admission?: Yes (5) Diastolic CHF Is this a current diagnosis for this admission?: Yes (6) COPD (chronic obstructive pulmonary disease) Is this a current diagnosis for this admission?: Yes (7) Hyperlipidemia Is this a current diagnosis for this admission?: Yes (8) Hypertension Is this a current diagnosis for this admission?: Yes - Transfer Medications Home Medications: Carvedilol 25 mg PO Q12 07/24/18 Furosemide [Lasix 40 mg Tablet] 40 mg PO Q12 07/24/18 Insulin Glargine,Hum.rec.anlog [Basaglar Kwikpen U-100] 15 unit SQ DAILY 07/24/18 Sacubitril/Valsartan [Entresto 49 mg/51 mg Tablet] 1 tab PO BID 07/24/18 Transfer Medications: Current Medications Acetaminophen (Tylenol 325 Mg Tablet) 650 mg PO Q4HP PRN PRN Reason: FOR HEADACHE OR PAIN Stop: 08/23/18 16:34 Last Admin: 07/25/18 15:25 Dose: 650 mg Documented by: Amlodipine Besylate (Norvasc 10 Mg Tablet) 10 mg PO DAILY [facility] Stop: 08/24/18 09:59 Last Admin: 07/29/18 10:15 Dose: 10 mg Documented by: Aspirin (Aspirin 81 Mg Chewable Tablet) 81 mg PO DAILY [facility] Stop: 08/27/18 09:59 Last Admin: 07/29/18 10:15 Dose: 81 mg Documented by: Atorvastatin Calcium (Lipitor 40 Mg Tablet) 80 mg PO QHS [facility] Stop: 08/27/18 21:59 Last Admin: 07/28/18 22:06 Dose: 80 mg Documented by: Carvedilol (Coreg 3.125 Mg Tablet) 3.125 mg PO DAILY [facility] Stop: 08/25/18 09:59 Last Admin: 07/29/18 10:15 Dose: 3.125 mg Documented by: Cilostazol (Pletal 100 Mg Tablet) 100 mg PO BID [facility] Stop: 08/26/18 17:59 Last Admin: 07/29/18 17:27 Dose: 100 mg Documented by: Clonidine (Catapres 0.1 Mg Tablet) 0.1 mg PO DAILY [facility] Stop: 08/26/18 09:59 Last Admin: 07/29/18 10:14 Dose: 0.1 mg Documented by: Clopidogrel Bisulfate (Plavix 75 Mg Tablet) 75 mg PO DAILY [facility] Stop: 08/29/18 09:59 Dextrose (Dextrose Inj 50% Syringe (25 Gm/50 Ml)) 12.5 gm IV PRN PRN; Protocol PRN Reason: FOR BG 50-69 IN ALERT PATIENT Stop: 08/24/18 10:36 Dextrose (Dextrose Inj 50% Syringe (25 Gm/50 Ml)) 25 gm IV PRN PRN; Protocol PRN Reason: PER PROTOCOL Stop: 08/24/18 10:36 Docusate Sodium (Colace 100 Mg Capsule) 100 mg PO BID [facility] Stop: 08/23/18 17:59 Last Admin: 07/29/18 17:27 Dose: 100 mg Documented by: Glucagon (Glucagen Inj 1 Mg Vial) 1 mg IM PRN PRN; Protocol PRN Reason: Evaluate for BG < 70 Stop: 08/24/18 10:36 Glucose (Glutose 40% Gel 15 Gm Tube) 15 gm PO PRN PRN; Protocol PRN Reason: FOR BG 50-69 IN ALERT PATIENT Stop: 08/24/18 10:36 Glucose (Glutose 40% Gel 15 Gm Tube) 30 gm PO PRN PRN; Protocol PRN Reason: FOR BG < 50 IN ALERT PATIENT Stop: 08/24/18 10:36 Insulin Glargine (Lantus Insulin 100 Unit/1 Ml 10 Ml) [facility] Stop: 08/27/18 21:59 Last Admin: 07/28/18 22:04 Dose: 15 unit Documented by: Insulin Human Lispro (Humalog Insulin 100 Unit/1 Ml 3 Ml Vial) 0 - 12 unit SUBCUT [facility]; Protocol Stop: 08/24/18 10:59 Last Admin: 07/29/18 17:27 Dose: 2 unit Documented by: Levetiracetam (Keppra 500 Mg Tablet) 500 mg PO Q12 [facility] Stop: 08/24/18 13:59 Last Admin: 07/29/18 10:14 Dose: 500 mg Documented by: Nicotine (Nicoderm 21 Mg/24 Hr Transderm Patch) 1 each TD DAILY [facility] Stop: 08/24/18 13:59 Last Admin: 07/29/18 10:15 Dose: 1 each Documented by: Pantoprazole Sodium (Protonix [address] Tablet) 20 mg PO BID [facility] Stop: 08/23/18 17:59 Last Admin: 07/29/18 17:27 Dose: 20 mg Documented by: Polyethylene Glycol (Miralax Powder 17 Gm/Packet) 17 gm PO DAILY [facility] Stop: 08/24/18 09:59 Last Admin: 07/29/18 10:15 Dose: 17 gm Documented by: Sacubitril/Valsartan (Entresto 49 Mg/51 Mg Tablet) 1 tab PO BID [facility] Stop: 08/26/18 17:59 Last Admin: 07/29/18 17:27 Dose: 1 tab Documented by: Sodium Chloride (Saline Flush 2.5 Ml Monoject Prefil Syrin) 2.5 ml IV Q8 [facility] Stop: 08/24/18 14:35 Last Admin: 07/29/18 15:26 Dose: 2.5 ml Documented by: - Allergies Allergies/Adverse Reactions: Penicillins Allergy (Intermediate, Verified 11/12/17 14:19) swelling Hospital Course Hospital Course: This is 68 years old black male patient with multiple comorbidities including diastolic CHF, hyperlipidemia, hypertension, COPD, diabetes mellitus, stage III CKD, everyday smoker and seizure disorder was brought by EMS with statement by the family patient having seizure. EMS reported on arrival to the scene patient was postictal and confused. Reportedly patient had a seizure 2 years ago and was not put on any kind of antiepileptic medication. He is MRI of the brain reported as focal acute deep left parietal/occipital infarct and numerous old lacunar infarcts in the yevgeniy thalami, and putamen bilaterally. Old right occipital infarct. Patient has been participating with physical therapy. Patient qualifies for acute inpatient rehab for pleasant 30 days. I have counseled and encouraged the patient to quit smoking and he voices agreement. Physical Exam Vital Signs: Temp Pulse Resp BP Pulse Ox 98.0 F 72 17 110/56 L 99 07/29/18 15:26 07/29/18 15:26 07/29/18 15:26 07/29/18 15:26 07/29/18 15:26 Intake & Output 07/28/18 07/29/18 07/30/18 06:59 06:59 06:59 Intake Total 505 553 Output Total 1725 650 1 Balance -1220 -97 -1 Weight 89.9 kg General appearance: PRESENT: no acute distress, cooperative Head exam: PRESENT: atraumatic Eye exam: PRESENT: conjunctiva pink Mouth exam: PRESENT: neck supple Neck exam: ABSENT: carotid bruit, JVD, lymphadenopathy, thyromegaly Respiratory exam: PRESENT: clear to auscultation nathan. ABSENT: rales, rhonchi, wheezes Cardiovascular exam: PRESENT: RRR. ABSENT: diastolic murmur, rubs, systolic murmur GI/Abdominal exam: PRESENT: normal bowel sounds, soft. ABSENT: distended, guarding, mass, organolmegaly, rebound, tenderness Neurological exam: PRESENT: alert, awake, oriented to time, oriented to situation Results Laboratory Results: 07/28/18 05:04 07/28/18 05:04 07/24/18 07/24/18 07/25/18 11:00 11:00 05:40 Creatine Kinase 231 H 219 H CK-MB (CK-2) 1.30 Troponin I 0.019 Impressions: Head MRI 07/24/18 00:00 IMPRESSION: 1. Focal acute deep left parietal/occipital infarct, approximately 4 x 4 by 16 mm. No associated mass effect. 2. Numerous old lacunar infarcts in the yevgeniy, thalami, and putamen bilaterally. Old right occipital infarct. 3. Severe chronic ischemic cerebral white matter changes Chest X-Ray 07/24/18 11:38 IMPRESSION: NO ACUTE RADIOGRAPHIC FINDING IN THE CHEST. Head CT 07/24/18 13:01 IMPRESSION: Chronic atrophy and small-vessel ischemic change. Old right occipital lobe infarct. No acute intracranial event. EVIDENCE OF ACUTE STROKE: NO. Carotid Doppler Study 07/26/18 00:00 IMPRESSION: NO HEMODYNAMICALLY SIGNIFICANT STENOSIS.
[2018-07-30] MEDS: INSULIN LISPRO 100 UNIT/ML 3 ML VIAL SUBCUT SCH (08:54)
[2018-07-30] MEDS: LEVETIRACETAM 500 MG TABLET PO SCH (09:00)
[2018-07-30] MEDS: CARVEDILOL 3.125 MG TABLET PO SCH (09:00)
[2018-07-30] MEDS: PANTOPRAZOLE SODIUM 20 MG TABLET.DR PO SCH (09:00)
[2018-07-30] MEDS: CLONIDINE HCL 0.1 MG TABLET PO SCH (09:00)
[2018-07-30] MEDS: SACUBITRIL/VALSARTAN 49 MG/51 MG TABLET PO SCH (09:01)
[2018-07-30] MEDS: DOCUSATE SODIUM 100 MG CAPSULE PO SCH (09:01)
[2018-07-30] MEDS: POLYETHYLENE GLYCOL 3350 POWDER 17 GM/1 PACKET PO SCH (09:01)
[2018-07-30] MEDS: ASPIRIN 81 MG TABLET, CHEWABLE PO SCH (09:01)
[2018-07-30] MEDS: AMLODIPINE BESYLATE 10 MG TABLET PO SCH (09:01)
[2018-07-30] MEDS: NICOTINE 21 MG/24 HR PATCH.TD24 TD SCH (09:01)
[2018-07-30] MEDS: CILOSTAZOL 100 MG TABLET PO SCH (09:02)
[2018-07-30] MEDS ORDERED: CLOPIDOGREL BISULFATE 75 MG TABLET PO SCH (10:00)
== END 2018-07-30 10:28 | DRG 65 ==
LOC: ER 10:27 → EH 16:05 → 5 20:34 → 3S 07-25 12:56
PROVIDERS: ADMIT Family Medicine; ATTEND Family Medicine
DX: I63.9 Cerebral infarction, unspecified (principal); I13.0 Hypertensive heart and chronic kidney disease with heart failure and stage 1 through stage 4 chronic kidney disease, or unspecified chronic kidney disease; N17.9 Acute kidney failure, unspecified; I50.42 Chronic combined systolic (congestive) and diastolic (congestive) heart failure; E11.22 Type 2 diabetes mellitus with diabetic chronic kidney disease; E11.649 Type 2 diabetes mellitus with hypoglycemia without coma; R56.9 Unspecified convulsions; J44.9 Chronic obstructive pulmonary disease, unspecified; N18.3 Chronic kidney disease, stage 3 (moderate); F17.210 Nicotine dependence, cigarettes, uncomplicated; E78.5 Hyperlipidemia, unspecified; K21.9 Gastro-esophageal reflux disease without esophagitis; M19.90 Unspecified osteoarthritis, unspecified site; D63.1 Anemia in chronic kidney disease; R26.2 Difficulty in walking, not elsewhere classified; R47.1 Dysarthria and anarthria; R00.1 Bradycardia, unspecified; E87.6 Hypokalemia; I67.9 Cerebrovascular disease, unspecified; Z79.02 Long term (current) use of antithrombotics/antiplatelets; Z79.82 Long term (current) use of aspirin; Z79.4 Long term (current) use of insulin; Z88.0 Allergy status to penicillin; Z86.73 Personal history of transient ischemic attack (TIA), and cerebral infarction without residual deficits; Z71.6 Tobacco abuse counseling; Z86.14 Personal history of Methicillin resistant Staphylococcus aureus infection; Z83.3 Family history of diabetes mellitus; Z82.49 Family history of ischemic heart disease and other diseases of the circulatory system
CPT/HCPCS: 36415; 70450; 70551; 71045; 80048; 80053; 80061; 81001; 82550; 82553; 82962; 83036; 83690; 83735; 84484; 85025; 85027; 87086; 93005; 93010; 93306; 93880; 95819; 96361; 96374; 99285; J0696; J1644; J1650; J1815; J2060; J3490; J7030; J7040

== ENCOUNTER → 2018-10-01 | Outpatient (CLI) | payer MEDICARE ==
[2018-10-01 15:03] LABS: HEMATOCRIT 28.8 % (37.9-51.0); HEMOGLOBIN 9.7 g/dL (13.5-17.0); MEAN CORPUSCULAR HEMOGLOBIN 28.4 pg (27.0-33.4); MEAN CORPUSCULAR HGB CONC 33.7 g/dL (32.0-36.0); MEAN CORPUSCULAR VOLUME 84 fl (80-97); PLATELET COUNT 261 10^3/uL (150-450); RED BLOOD COUNT 3.42 10^6/uL (4.35-5.55); RED CELL DISTRIBUTION WIDTH 13.4 % (11.5-14.0); WHITE BLOOD COUNT 6.5 10^3/uL (4.0-10.5)
[2018-10-01 15:27] LABS: APPEARANCE,URINE TURBID; BILIRUBIN,URINE NEGATIVE (NEGATIVE); COLOR,URINE YELLOW; GLUCOSE, URINE NEGATIVE (NEGATIVE); KETONES,URINE TRACE mg/dL (NEGATIVE); LEUKOCYTE ESTERASE,URINE MODERATE (NEGATIVE); NITRITE,URINE NEGATIVE (NEGATIVE); PROTEIN,URINE 100 mg/dL (NEGATIVE); URINE SPECIFIC GRAVITY 1.013; UROBILINOGEN,URINE NEGATIVE mg/dL (<2.0)
[2018-10-01 15:34] LABS: ANION GAP 14 (5-19); BLOOD UREA NITROGEN 67 mg/dL (7-20); CARBON DIOXIDE 25 mmol/L (22-30); CHLORIDE 104 mmol/L (98-107); GLUCOSE 97 mg/dL (75-110); POTASSIUM 4.6 mmol/L (3.6-5.0); SODIUM 142.6 mmol/L (137-145)
== END ==
LOC: OD 14:18
PROVIDERS: ATTEND Physician Assistant Medical
DX: I12.9 Hypertensive chronic kidney disease with stage 1 through stage 4 chronic kidney disease, or unspecified chronic kidney disease (principal); N18.3 Chronic kidney disease, stage 3 (moderate); E87.6 Hypokalemia; D64.9 Anemia, unspecified; N39.0 Urinary tract infection, site not specified
CPT/HCPCS: 36415; 80048; 81001; 83970; 84100; 85027; 87086; 87088; 87186

== ENCOUNTER 2018-10-06 15:59 | Inpatient (IN) | payer MEDICARE ==
[2018-10-06] MEDS ORDERED: NORMAL SALINE 1000 ML 1,000 ML IV ONE ×2 (16:18→17:18)
[2018-10-06] MEDS ORDERED: VANCOMYCIN HCL INJ 1000 MG VIAL IV ONE (16:26)
[2018-10-06] MEDS ORDERED: PIPERACILLIN/TAZOBACTAM 3.375 GM VIAL IV ONE (16:26)
--- NOTE | 2018-10-06 16:32 | ER Document Report ---
ED General - General Chief Complaint: UTI Stated Complaint: BLOOD PRESSURE ISSUES/URINARY ISSUES Time Seen by Provider: 10/06/18 16:18 Primary Care Provider: MARGOT NEVILLE PA-C [ALLIED HEALTH PROFESSIONAL] - Follow up as needed TRAVEL OUTSIDE OF THE [place] IN LAST 30 DAYS: No - HPI Notes: Patient is a 68-year-old male that presents to the emergency department for chief complaint of UTI and sepsis. Patient was sent over from Dr. Toro's office for concern of sepsis from a urina ry tract infection. Patient's sister is providing most of the HPI. She states that patient had had increased lethargy and malodorous urine on Friday, 4 days ago. They had blood work and urinalysis performed by their primary care physician. Today they were at the office following up on the results and patient was found to be hypotensive with a blood pressure of 90/60. He had increased lethargy over the last 2 to 3 days as well and was referred to the emergency room for concern of sepsis. Patient's urinalysis results from Dr. Toro's office were reportedly positive for Pseudomonas, group B strep and a yeast. Patient does have a history of sepsis in the past. He currently is living alone at home and has home health 5 days a week. Patient's sister states she checks on him frequently. Patient is very lethargic and not providing much HPI. Past Medical History: Diabetes, hypertension, hyperlipidemia, history of stroke Past Surgical History: Reviewed in chart Social History: Lives at home alone with home health, no tobacco Family History: Reviewed and noncontributory for presenting illness Allergies: Reviewed, see documented allergy list. REVIEW OF SYSTEMS: Unable to obtain because of acuity of condition PHYSICAL EXAMINATION: Vital signs reviewed, nursing noted reviewed. GENERAL: Ill-appearing, well-nourished and in no acute distress. HEAD: Atraumatic, normocephalic. EYES: Eyes appear normal, extraocular movements intact, sclera anicteric, conjunctiva are mildly pale ENT: nares patent, oropharynx clear without exudates. Dry mucous membranes. NECK: Normal range of motion, supple without lymphadenopathy LUNGS: Breath sounds clear to auscultation bilaterally and equal. No wheezes rales or rhonchi. HEART: Regular rate and rhythm without murmurs ABDOMEN: Soft, nontender, No rebound, guarding, or rigidity. No masses appreciated. EXTREMITIES: Nontender, good range of motion, trace nonpitting pretibial edema bilaterally NEUROLOGICAL: Very somnolent, will mumble his name and follow commands, moves all extremities spontaneously Motor and sensory grossly intact on exam. PSYCH: Normal mood, normal affect. SKIN: Warm, Dry, lateral left heel ulcer without surrounding erythema or drainage appears to be healing well - Related Data Allergies/Adverse Reactions: Penicillins Allergy (Intermediate, Verified 11/12/17 14:19) swelling Past Medical History - Social History Smoking Status: Unknown if Ever Smoked Family History: Reviewed & Not Pertinent, CAD, DM, Malignancy - Past Medical History Cardiac Medical History: Reports: Hx Congestive Heart Failure - Chronic systolic, Hx Hypercholesterolemia, Hx Hypertension Denies: Hx Coronary Artery Disease, Hx Heart Attack Pulmonary Medical History: Reports: Hx COPD Denies: Hx Asthma, Hx Bronchitis, Hx Pneumonia, Hx Tuberculosis Neurological Medical History: Reports: Hx Seizures. Denies: Hx Cerebrovascular Accident Endocrine Medical History: Reports: Hx Diabetes Mellitus Type 1, Hx Diabetes Mellitus Type 2. Denies: Hx Hypothyroidism Renal/ Medical History: Reports: Hx Renal Insufficiency. Denies: Hx Peritoneal Dialysis GI Medical History: Reports: Hx Gastroesophageal Reflux Disease Musculoskeletal Medical History: Reports Hx Arthritis Psychiatric Medical History: Denies: Hx Depression Infectious Medical History: Reports: Hx MRSA Past Surgical History: Reports: Hx Internal Defibrillator - With removal, Hx Orthopedic Surgery. Denies: Hx Pacemaker - Immunizations Hx Diphtheria, Pertussis, Tetanus Vaccination: Yes Hx Pneumococcal Vaccination: 01/19/11 Physical Exam - Vital signs Vitals: Temp Pulse Resp BP Pulse Ox 98.6 F 69 14 78/37 L 100 10/06/18 16:05 10/06/18 16:05 10/06/18 16:05 10/06/18 16:05 10/06/18 16:05 Course - Re-evaluation Re-evalutation: 10/06/18 16:31 Vitals reviewed. Nursing notes reviewed. Patient presented to the emergency room hypotensive. He was started on IV fluids. He does have a history of congestive heart failure and respiratory status will be monitored closely. Currently he is oxygenating well on room air. He is very somnolent but will answer his name and follow commands. Patient is not providing any more history. Patient's EKG shows first-degree AV block with T wave inversions laterally. Patient has reported urinary tract infection and is meeting septic shock criteria with his hypotension. He was started on broad-spectrum antibiotics. Temperature Sullivan catheter has been placed to monitor for fever has well as I's and O's 10/06/18 17:18 Patient's blood pressure is improving with IV fluids. His mentation has significantly improved with blood pressure improvement. He is much more awake and conversational. He is currently at 114/61. Heart rate is 66. His lab work shows renal failure which is similar to blood drawn a few days ago. He has no hyperkalemia. Patient has an indeterminate level troponin which he has previously had before. He does have some new EKG changes with no chest pain. His EKG changes may be related to his hypotension and not acute ACS. Patient has no leukocytosis. He is anemic which is also at baseline. Patient has received antibiotics. He will be admitted to the hospital for hydration, antibiotics and monitoring of his renal failure. Patient is improving at time of admission. Care discussed with admitting provider. Laboratory 10/06/18 10/06/18 10/06/18 16:10 16:10 16:10 WBC 7.9 RBC 3.34 L Hgb 9.6 L Hct 27.9 L MCV 84 MCH 28.8 MCHC 34.3 RDW 13.6 Plt Count 262 Seg Neutrophils % 65.1 Lymphocytes % 17.9 Monocytes % 7.5 Eosinophils % 8.4 H Basophils % 1.1 Absolute Neutrophils 5.1 Absolute Lymphocytes 1.4 Absolute Monocytes 0.6 Absolute Eosinophils 0.7 H Absolute Basophils 0.1 PT 15.0 INR 1.12 Sodium 140.6 Potassium 4.6 Chloride 106 Carbon Dioxide 23 Anion Gap 12 BUN 75 H Creatinine 4.34 H Est GFR ( Amer) 17 L Est GFR (Non-Af Amer) 14 L Glucose 107 Lactic Acid Calcium 9.1 Total Bilirubin 0.4 Direct Bilirubin 0.3 Neonat Total Bilirubin Not Reportable Neonat Direct Bilirubin Not Reportable Neonat Indirect Bili Not Reportable AST 20 ALT 24 Alkaline Phosphatase 107 Troponin I Total Protein 7.3 Albumin 4.1 10/06/18 10/06/18 16:10 16:10 WBC RBC Hgb Hct MCV MCH MCHC RDW Plt Count Seg Neutrophils % Lymphocytes % Monocytes % Eosinophils % Basophils % Absolute Neutrophils Absolute Lymphocytes Absolute Monocytes Absolute Eosinophils Absolute Basophils PT INR Sodium Potassium Chloride Carbon Dioxide Anion Gap BUN Creatinine Est GFR ( Amer) Est GFR (Non-Af Amer) Glucose Lactic Acid 1.2 Calcium Total Bilirubin Direct Bilirubin Neonat Total Bilirubin Neonat Direct Bilirubin Neonat Indirect Bili AST ALT Alkaline Phosphatase Troponin I 0.031 Total Protein Albumin Chest X-Ray 10/06/18 16:18 IMPRESSION: NO ACUTE RADIOGRAPHIC FINDING IN THE CHEST. 10/06/18 17:25 - Vital Signs Vital signs: Temp Pulse Resp BP Pulse Ox 98.6 F 69 14 78/37 L 100 10/06/18 16:58 10/06/18 16:05 10/06/18 16:05 10/06/18 16:05 10/06/18 16:05 - Laboratory Result Diagrams: 10/06/18 16:10 10/06/18 16:10 Laboratory results interpreted by me: 10/06/18 10/06/18 16:10 16:10 RBC 3.34 L Hgb 9.6 L Hct 27.9 L Eosinophils % 8.4 H Absolute Eosinophils 0.7 H BUN 75 H Creatinine 4.34 H Est GFR ( Amer) 17 L Est GFR (Non-Af Amer) 14 L - EKG Interpretation by Me Additional EKG results interpreted by me: 10/06/18 16:34 Interpreted by myself 1626: Normal sinus rhythm, rate 61, first-degree AV block, normal axis, no ectopy, deep T wave inversions V3 through V6 new compared to 07/24/2018. No STEMI Critical Care Note - Critical Care Note Total time excluding time spent on procedures (mins): 40 Comments: Critical care time 40 exclusive from separate billable procedures for a patient requiring complex medical decision making, and high potential for clinical deterioration. Time spent obtaining history from patient or surrogate, discussions with consultants, development of treatment plan with patient or surrogate, evaluation of patient's response to treatment, examination of patient, ordering and performing treatments and interventions, ordering and review of laboratory studies, re-evaluation of patient's condition, ordering and review of radiographic studies and review of old charts Discharge - Discharge Clinical Impression: Shock, Abnormal EKG Acute renal failure Qualifiers: Acute renal failure type: unspecified Qualified Code(s): N17.9 - Acute kidney failure, unspecified Urinary tract infection Qualifiers: Urinary tract infection type: site unspecified Hematuria presence: without hematuria Qualified Code(s): N39.0 - Urinary tract infection, site not specified Condition: Good Disposition: ADMITTED INPATIENT Admitting Provider: Dre (Hospitalist) Unit Admitted: IMCU Referrals: MARGOT NEVILLE PA-C [ALLIED HEALTH PROFESSIONAL] - Follow up as needed
[2018-10-06 16:37] LABS: ABSOLUTE BASOPHILS # (AUTO) 0.1 10^3/uL (0.0-0.2); ABSOLUTE EOSINOPHILS # (AUTO) 0.7 10^3/uL (0.0-0.6); ABSOLUTE LYMPHOCYTES (AUTO) 1.4 10^3/uL (0.5-4.7); ABSOLUTE MONOCYTES (AUTO) 0.6 10^3/uL (0.1-1.4); ABSOLUTE NEUT (AUTO) 5.1 10^3/uL (1.7-8.2); BASOPHILS % (AUTO) 1.1 % (0-2); EOSINOPHILS % (AUTO) 8.4 % (0-6); HEMATOCRIT 27.9 % (37.9-51.0); HEMOGLOBIN 9.6 g/dL (13.5-17.0); LYMPHOCYTES % (AUTO) 17.9 % (13-45); MEAN CORPUSCULAR HEMOGLOBIN 28.8 pg (27.0-33.4); MEAN CORPUSCULAR HGB CONC 34.3 g/dL (32.0-36.0); MEAN CORPUSCULAR VOLUME 84 fl (80-97); MONOCYTES % (AUTO) 7.5 % (3-13); PLATELET COUNT 262 10^3/uL (150-450); RED BLOOD COUNT 3.34 10^6/uL (4.35-5.55); RED CELL DISTRIBUTION WIDTH 13.6 % (11.5-14.0); SEGMENTED NEUTROPHILS % (AUTO) 65.1 % (42-78); TOTAL CELLS COUNTED % (AUTO) 100 %; WHITE BLOOD COUNT 7.9 10^3/uL (4.0-10.5)
[2018-10-06 16:47] LABS: INTERNATIONAL RATION (INR) 1.12
--- NOTE | 2018-10-06 16:48 | RADIOLOGY REPORT (SQ) ---
EXAM DESCRIPTION: CHEST SINGLE VIEW COMPLETED DATE/TIME: 10/06/2018 4:39 pm REASON FOR STUDY: HYPOTENSION COMPARISON: 07/24/2018 EXAM PARAMETERS: NUMBER OF VIEWS: One view. TECHNIQUE: Single frontal radiographic view of the chest acquired. RADIATION DOSE: NA LIMITATIONS: None. FINDINGS: LUNGS AND PLEURA: No opacities, masses or pneumothorax. No pleural effusion. MEDIASTINUM AND HILAR STRUCTURES: No masses. Contour normal. HEART AND VASCULAR STRUCTURES: Heart normal in size. Normal vasculature. BONES: No acute findings. HARDWARE: None in the chest. OTHER: No other significant finding. IMPRESSION: NO ACUTE RADIOGRAPHIC FINDING IN THE CHEST. TECHNICAL DOCUMENTATION: JOB ID: [id number] [employer]- All Rights Reserved Reading location - IP/workstation name: [email or web address]
[2018-10-06 16:59] LABS: ALANINE AMINOTRANSFERASE 24 U/L (21-72); ALBUMIN 4.1 g/dL (3.5-5.0); ALKALINE PHOSPHATASE 107 U/L (38-126); ANION GAP 12 (5-19); ASPARTATE AMINO TRANSFERASE 20 U/L (17-59); BILIRUBIN,DIRECT 0.3 mg/dL (0.0-0.4); BILIRUBIN,TOTAL 0.4 mg/dL (0.2-1.3); BLOOD UREA NITROGEN 75 mg/dL (7-20); CALCIUM 9.1 mg/dL (8.4-10.2); CARBON DIOXIDE 23 mmol/L (22-30); CHLORIDE 106 mmol/L (98-107); GLUCOSE 107 mg/dL (75-110); POTASSIUM 4.6 mmol/L (3.6-5.0); SODIUM 140.6 mmol/L (137-145); TOTAL PROTEIN 7.3 g/dL (6.3-8.2)
[2018-10-06 17:29] LABS: APPEARANCE,URINE CLOUDY; BILIRUBIN,URINE NEGATIVE (NEGATIVE); COLOR,URINE YELLOW; GLUCOSE, URINE NEGATIVE (NEGATIVE); KETONES,URINE NEGATIVE (NEGATIVE); LEUKOCYTE ESTERASE,URINE LARGE (NEGATIVE); NITRITE,URINE NEGATIVE (NEGATIVE); PROTEIN,URINE 30 mg/dL (NEGATIVE); URINE SPECIFIC GRAVITY 1.012; UROBILINOGEN,URINE NEGATIVE mg/dL (<2.0)
--- NOTE | 2018-10-06 17:57 | PDOC H&P ---
History of Present Illness Admission Date/PCP: LEXUS GARCIA MD History of Present Illness: FLAG MORELIA THIBODEAUX is a 68 year old black male patient with multiple comorbidities including recent history of stroke, seizure disorder, diabetes mellitus, diastolic CHF, tobacco dependence, COPD, hyperlipidemia, hypertension referred from his primary oven [facility] office with chief complaint of abnormal lab, hypotension lethargy. His sister states that the patient had had increased lethargy and foul-smelling urine on Friday which is about 4 days ago. His urine culture which were done [address] Blackmon's office was positive for Pseudomonas, group B Streptococcus and Sienna species. There is no report of fever, chills, cough, palpitation or diaphoresis. Patient bolused with normal saline and his lethargy relatively improved. His urinary catheter drains very turbid urine. His urinalysis is positive for leukocyte esterase and pyuria. His blood work shows elevated creatinine of 4 his baseline creatinine is around 2.4. Because of patient is lethargic brief history is obtained from his sister and ER attending note. Past Medical History Cardiac Medical History: Reports: Congestive Heart Failure - Chronic systolic, Hyperlipidema, Hypertension Denies: Coronary Artery Disease, Myocardial Infarction Pulmonary Medical History: Reports: Chronic Obstructive Pulmonary Disease (COPD) Denies: Asthma, Bronchitis, Pneumonia, Tuberculosis Neurological Medical History: Reports: Seizures Endocrine Medical History: Reports: Diabetes Mellitus Type 1, Diabetes Mellitus Type 2 Denies: Hypothyroidism GI Medical History: Reports: Gastroesophageal Reflux Disease Musculoskeltal Medical History: Reports: Arthritis Psychiatric Medical History: Denies: Depression Hematology: Reports: Anemia Infectious Medical History: Reports: Methicillin-Resistant Staph Aureus Past Surgical History Past Surgical History: Reports: Internal Defibrillator - With removal, Orthopedic Surgery Denies: Pacemaker Social History Smoking Status: Current Every Day Smoker Frequency of Alcohol Use: None Hx Recreational Drug Use: No Drugs: None Hx Prescription Drug Abuse: No - Advance Directive Resuscitation Status: Full Code Family History Family History: Reviewed & Not Pertinent, CAD, DM, Malignancy Parental Family History Reviewed: Yes Children Family History Reviewed: Yes Sibling(s) Family History Reviewed.: Yes Medication/Allergy Home Medications: Aspirin [Aspirin 81 mg Chewable Tablet] 81 mg PO DAILY 30 Days #0 tab.chew 05/01/17 Cilostazol [Pletal 100 mg Tablet] 50 mg PO BID tablet 01/11/18 Docusate Sodium [Colace 100 mg Capsule] 100 mg PO BID capsule 05/01/17 Carvedilol 25 mg PO Q12 07/24/18 Furosemide [Lasix 40 mg Tablet] 40 mg PO Q12 07/24/18 Insulin Glargine,Hum.rec.anlog [Basaglar Kwikpen U-100] 15 unit SQ DAILY 07/24/18 Sacubitril/Valsartan [Entresto 49 mg/51 mg Tablet] 1 tab PO BID 07/24/18 Atorvastatin Calcium [Lipitor 80 mg Tablet] 80 mg PO QHS #30 tablet 07/30/18 Clopidogrel Bisulfate [Plavix 75 mg Tablet] 75 mg PO DAILY #30 tablet 07/30/18 Allergies/Adverse Reactions: Penicillins Allergy (Intermediate, Verified 11/12/17 14:19) swelling Review of Systems ROS unobtainable: Due to mental status Physical Exam Vital Signs: Temp Pulse Resp BP Pulse Ox 98.6 F 69 14 78/37 L 100 10/06/18 16:58 10/06/18 16:05 10/06/18 16:05 10/06/18 16:05 10/06/18 16:05 Intake & Output 10/05/18 10/06/18 10/07/18 06:59 06:59 06:59 Weight 87.2 kg General appearance: PRESENT: no acute distress Head exam: PRESENT: atraumatic Eye exam: PRESENT: conjunctiva pink Mouth exam: PRESENT: dry mucosa Neck exam: ABSENT: carotid bruit, JVD, lymphadenopathy, thyromegaly Respiratory exam: PRESENT: crackles Cardiovascular exam: PRESENT: RRR. ABSENT: diastolic murmur, rubs, systolic murmur GI/Abdominal exam: PRESENT: normal bowel sounds, soft. ABSENT: distended, guarding, mass, organolmegaly, rebound, tenderness Extremities exam: PRESENT: other - Bilateral +3 pitting edema Neurological exam: PRESENT: alert, altered Results Laboratory Results: 10/06/18 16:10 10/06/18 16:10 10/06/18 10/06/18 10/06/18 16:10 16:10 16:10 WBC 7.9 RBC 3.34 L Hgb 9.6 L Hct 27.9 L MCV 84 MCH 28.8 MCHC 34.3 RDW 13.6 Plt Count 262 Seg Neutrophils % 65.1 Lymphocytes % 17.9 Monocytes % 7.5 Eosinophils % 8.4 H Basophils % 1.1 Absolute Neutrophils 5.1 Absolute Lymphocytes 1.4 Absolute Monocytes 0.6 Absolute Eosinophils 0.7 H Absolute Basophils 0.1 Sodium 140.6 Potassium 4.6 Chloride 106 Carbon Dioxide 23 Anion Gap 12 BUN 75 H Creatinine 4.34 H Est GFR ( Amer) 17 L Est GFR (Non-Af Amer) 14 L Glucose 107 Lactic Acid 1.2 Calcium 9.1 Total Bilirubin 0.4 AST 20 ALT 24 Alkaline Phosphatase 107 Total Protein 7.3 Albumin 4.1 Urine Color Urine Appearance Urine pH Ur Specific [place] Urine Protein Urine Glucose (UA) Urine Ketones Urine Blood Urine Nitrite Ur Leukocyte Esterase Urine WBC (Auto) Urine RBC (Auto) 10/06/18 16:59 WBC RBC Hgb Hct MCV MCH MCHC RDW Plt Count Seg Neutrophils % Lymphocytes % Monocytes % Eosinophils % Basophils % Absolute Neutrophils Absolute Lymphocytes Absolute Monocytes Absolute Eosinophils Absolute Basophils Sodium Potassium Chloride Carbon Dioxide Anion Gap BUN Creatinine Est GFR ( Amer) Est GFR (Non-Af Amer) Glucose Lactic Acid Calcium Total Bilirubin AST ALT Alkaline Phosphatase Total Protein Albumin Urine Color YELLOW Urine Appearance CLOUDY Urine pH 5.0 Ur Specific [place] 1.012 Urine Protein 30 H Urine Glucose (UA) NEGATIVE Urine Ketones NEGATIVE Urine Blood SMALL H Urine Nitrite NEGATIVE Ur Leukocyte Esterase LARGE H Urine WBC (Auto) >182 Urine RBC (Auto) 8 10/06/18 16:10 Troponin I 0.031 Impressions: Chest X-Ray 10/06/18 16:18 IMPRESSION: NO ACUTE RADIOGRAPHIC FINDING IN THE CHEST. Assessment and Plan - Diagnosis (1) Sepsis Is this a current diagnosis for this admission?: Yes Plan: Urinary tract origin. (2) Complicated UTI (urinary tract infection) Is this a current diagnosis for this admission?: Yes Plan: His urine culture positive for pseudomonas aeruginosa and group B beta-hemolytic Streptococcus. We will put him on appropriate antibiotics. (3) Type 2 diabetes mellitus Is this a current diagnosis for this admission?: Yes Plan: Continue his home medication and put him on sliding scale. (4) Seizure disorder Is this a current diagnosis for this admission?: Yes Plan: Continue home medication (5) Chronic diastolic CHF (congestive heart failure) Is this a current diagnosis for this admission?: Yes Plan: Continue his home medication. (6) COPD (chronic obstructive pulmonary disease) Qualifiers: Emphysema type: unspecified Is this a current diagnosis for this admission?: Yes Plan: Repeat 1 PRN bronchodilators. - Inpatient Certification Medical Necessity: Significant Comorbidiites Make Outpatient Treatment Too Risky, Need For IV Fluids, Need for IV Antibiotics
[2018-10-06] MEDS ORDERED: ACETAMINOPHEN 325 MG TABLET PO PRN (18:14)
[2018-10-06] MEDS ORDERED: ONDANSETRON HCL INJ/PF 4 MG/2 ML SDV IV PRN (18:14)
[2018-10-06] MEDS ORDERED: DEXTROSE 50%-WATER 25 GM/50 ML DISP.SYRIN IV PRN ×2 (18:21)
[2018-10-06] MEDS ORDERED: DEXTROSE 40% GEL 15 GM TUBE PO PRN ×2 (18:21)
[2018-10-06] MEDS ORDERED: GLUCAGON,HUMAN RECOMB 1 MG INJ IM PRN (18:21)
[2018-10-06 19:29] LABS: VENOUS BLOOD HCO3 22.3 mmol/L (20-32); VENOUS BLOOD PCO2 46.2 mmHg (35-63); VENOUS BLOOD PH 7.3 (7.30-7.42)
[2018-10-06] MEDS: IPRATROPIUM/ALBUTEROL 0.5-2.5 MG/3 ML AMPUL NEB SCH (20:33)
[2018-10-06] MEDS: FAMOTIDINE 20 MG TABLET PO SCH (22:08)
[2018-10-06] MEDS: HEPARIN SOD (PORCINE) 5,000 UNIT/ML 1 ML SYRINGE SUBCUT SCH (22:08)
[2018-10-06] MEDS: INSULIN LISPRO 100 UNIT/ML 3 ML VIAL SUBCUT SCH (22:09)
[2018-10-06] MEDS: PIPERACILLIN SODIUM/TAZOBACTAM 2.25 GM in NORMAL SALINE 50 ML IV SCH (23:35)
[2018-10-07] MEDS: NORMAL SALINE 1000 ML 1,000 ML IV PRN ×3 (01:03→21:30)
[2018-10-07] MEDS: IPRATROPIUM/ALBUTEROL 0.5-2.5 MG/3 ML AMPUL NEB SCH ×4 (02:13→20:39)
[2018-10-07] MEDS: HEPARIN SOD (PORCINE) 5,000 UNIT/ML 1 ML SYRINGE SUBCUT SCH ×3 (05:34→21:30)
[2018-10-07] MEDS: PIPERACILLIN SODIUM/TAZOBACTAM 2.25 GM in NORMAL SALINE 50 ML IV SCH ×4 (05:34→23:14)
[2018-10-07] MEDS ORDERED: PIPERACILLIN SODIUM/TAZOBACTAM 3.375 GM in NORMAL SALINE 100 ML IV SCH (06:00)
[2018-10-07 07:02] LABS: ABSOLUTE BASOPHILS # (AUTO) 0.1 10^3/uL (0.0-0.2); ABSOLUTE EOSINOPHILS # (AUTO) 0.6 10^3/uL (0.0-0.6); ABSOLUTE LYMPHOCYTES (AUTO) 1.5 10^3/uL (0.5-4.7); ABSOLUTE MONOCYTES (AUTO) 0.5 10^3/uL (0.1-1.4); ABSOLUTE NEUT (AUTO) 3.5 10^3/uL (1.7-8.2); BASOPHILS % (AUTO) 1.8 % (0-2); EOSINOPHILS % (AUTO) 9.5 % (0-6); HEMATOCRIT 23.9 % (37.9-51.0); HEMOGLOBIN 8.2 g/dL (13.5-17.0); LYMPHOCYTES % (AUTO) 23.9 % (13-45); MEAN CORPUSCULAR HEMOGLOBIN 28.8 pg (27.0-33.4); MEAN CORPUSCULAR HGB CONC 34.4 g/dL (32.0-36.0); MEAN CORPUSCULAR VOLUME 84 fl (80-97); MONOCYTES % (AUTO) 8.2 % (3-13); PLATELET COUNT 215 10^3/uL (150-450); RED BLOOD COUNT 2.86 10^6/uL (4.35-5.55); RED CELL DISTRIBUTION WIDTH 13.6 % (11.5-14.0); SEGMENTED NEUTROPHILS % (AUTO) 56.6 % (42-78); TOTAL CELLS COUNTED % (AUTO) 100 %; WHITE BLOOD COUNT 6.3 10^3/uL (4.0-10.5)
[2018-10-07 07:22] LABS: ANION GAP 8 (5-19); BLOOD UREA NITROGEN 70 mg/dL (7-20); CALCIUM 8.2 mg/dL (8.4-10.2); CARBON DIOXIDE 22 mmol/L (22-30); CHLORIDE 113 mmol/L (98-107); POTASSIUM 4.3 mmol/L (3.6-5.0); SODIUM 142.9 mmol/L (137-145)
[2018-10-07 07:25] LABS: GLUCOSE 67 mg/dL (75-110)
[2018-10-07] MEDS: INSULIN LISPRO 100 UNIT/ML 3 ML VIAL SUBCUT SCH ×4 (07:31→21:14)
--- NOTE | 2018-10-07 08:00 | EKG REPORT ---
SEVERITY:- ABNORMAL ECG - SINUS RHYTHM FIRST DEGREE AV BLOCK NONSPECIFIC INTRAVENTRICULAR CONDUCTION DELAY : Confirmed by: Yelitza Tatum MD 07-Oct-2018 07:58:45
[2018-10-07] MEDS: DOCUSATE SODIUM 100 MG CAPSULE PO SCH ×2 (09:45→17:00)
[2018-10-07] MEDS: FAMOTIDINE 20 MG TABLET PO SCH ×2 (09:52→21:30)
[2018-10-07] MEDS ORDERED: CARVEDILOL 12.5 MG TABLET PO ONE (16:00)
[2018-10-07] MEDS ORDERED: LEVETIRACETAM 500 MG TABLET PO ONE (16:30)
[2018-10-07] MEDS ORDERED: CLOPIDOGREL BISULFATE 75 MG TABLET PO ONE (16:30)
[2018-10-07] MEDS ORDERED: ATORVASTATIN CALCIUM 80 MG TABLET PO ONE (16:30)
--- NOTE | 2018-10-07 19:18 | PDOC PROGRESS REPORT ---
<LUIS ALBERTO HUNTER - Last Filed: 10/07/18 17:56> Subjective Progress Note for:: 10/07/18 Subjective:: This is a 68 year old black male with recent history of stroke, seizure disorder, HTN, diastolic CHF, COPD, DM, tobacco dependence that presented to the ED from his [facility] office with abnormal labs, and hypotension. His sister reported that he had maloderous urine and increase in lethargy. The urine cultures he had done at his nephrologists office were positive for Psedomonas, Sienna, and group B Streptococcus. He is currently on Piperacillin Sod/Tazobactam Sod 2.25 gm renal dose IV every 6 hours. In to evaluate on morning rounds. Patient verbalizes concerns about receiving his "stroke medications and seizure medications". Patient denies headache, dizziness, abdominal pain, chest pain, palpitations, nausea or vomiting or bowel problems. He reports a cough but states, "he swallows the secretions". He is awake, alert and oriented. He vocalizes no acute needs. His creatinine on admit was 4.34 and is down to 3.49 with a GFR of 21. His creatinine is coming down, he is awake and answers questions appropriatley. He is alert and oriented to name, place and time. His blood glucose this am was 67 for which he was given organge juice, the POC glucose was 112 @0844 s/p. To his left heel there is a wound that he sees wound care for, mepilex dressing in place - bed of wound is pink, no bleeding, or necrotic areas noted. Patient reports that the wound on his left heel is doing well. Reason For Visit: SEPSIS,COMPLICATED UTI Physical Exam Vital Signs: Temp Pulse Resp BP Pulse Ox 97.6 F 59 L 24 H 130/60 H 93 10/07/18 11:17 10/07/18 11:17 10/07/18 11:17 10/07/18 11:50 10/07/18 11:17 Intake & Output 10/06/18 10/07/18 10/08/18 06:59 06:59 06:59 Intake Total 2100 1530 Output Total 525 1050 Balance 1575 480 Weight 86.9 kg General appearance: PRESENT: no acute distress Head exam: PRESENT: normocephalic Eye exam: PRESENT: conjunctiva pink Ear exam: PRESENT: normal external ear exam Mouth exam: PRESENT: dry mucosa Neck exam: PRESENT: full ROM, other - c/o pain to left shoulder and neck. Patient reports hx of rotator cuff tear, but was told not a surgical candidate Respiratory exam: PRESENT: clear to auscultation nathan, decreased breath sounds, symmetrical, unlabored Cardiovascular exam: PRESENT: RRR, +S1, +S2 GI/Abdominal exam: PRESENT: distended, normal bowel sounds Rectal exam: PRESENT: deferred Gentrourinary exam: PRESENT: indwelling catheter - patient c/o "feeling like its leaking and running down his leg" Extremities exam: PRESENT: pedal edema, other - +3 pitting edema to bilateral lower extremities Neurological exam: PRESENT: alert, oriented to person, oriented to place, oriented to time, oriented to situation, other - +dysarthria Skin exam: PRESENT: dry Results Laboratory Results: 10/07/18 06:01 10/07/18 06:01 10/06/18 10/06/18 10/06/18 16:10 16:10 16:10 WBC 7.9 RBC 3.34 L Hgb 9.6 L Hct 27.9 L MCV 84 MCH 28.8 MCHC 34.3 RDW 13.6 Plt Count 262 Seg Neutrophils % 65.1 Lymphocytes % 17.9 Monocytes % 7.5 Eosinophils % 8.4 H Basophils % 1.1 Absolute Neutrophils 5.1 Absolute Lymphocytes 1.4 Absolute Monocytes 0.6 Absolute Eosinophils 0.7 H Absolute Basophils 0.1 VBG pH VBG pCO2 VBG HCO3 VBG Base Excess Sodium 140.6 Potassium 4.6 Chloride 106 Carbon Dioxide 23 Anion Gap 12 BUN 75 H Creatinine 4.34 H Est GFR ( Amer) 17 L Est GFR (Non-Af Amer) 14 L Glucose 107 Lactic Acid 1.2 Calcium 9.1 Total Bilirubin 0.4 AST 20 ALT 24 Alkaline Phosphatase 107 Total Protein 7.3 Albumin 4.1 Urine Color Urine Appearance Urine pH Ur Specific [place] Urine Protein Urine Glucose (UA) Urine Ketones Urine Blood Urine Nitrite Ur Leukocyte Esterase Urine WBC (Auto) Urine RBC (Auto) 10/06/18 10/06/18 10/07/18 16:59 19:15 06:01 WBC 6.3 RBC 2.86 L Hgb 8.2 L Hct 23.9 L MCV 84 MCH 28.8 MCHC 34.4 RDW 13.6 Plt Count 215 Seg Neutrophils % 56.6 Lymphocytes % 23.9 Monocytes % 8.2 Eosinophils % 9.5 H Basophils % 1.8 Absolute Neutrophils 3.5 Absolute Lymphocytes 1.5 Absolute Monocytes 0.5 Absolute Eosinophils 0.6 Absolute Basophils 0.1 VBG pH 7.30 VBG pCO2 46.2 VBG HCO3 22.3 VBG Base Excess -4.0 Sodium Potassium Chloride Carbon Dioxide Anion Gap BUN Creatinine Est GFR ( Amer) Est GFR (Non-Af Amer) Glucose Lactic Acid Calcium Total Bilirubin AST ALT Alkaline Phosphatase Total Protein Albumin Urine Color YELLOW Urine Appearance CLOUDY Urine pH 5.0 Ur Specific [place] 1.012 Urine Protein 30 H Urine Glucose (UA) NEGATIVE Urine Ketones NEGATIVE Urine Blood SMALL H Urine Nitrite NEGATIVE Ur Leukocyte Esterase LARGE H Urine WBC (Auto) >182 Urine RBC (Auto) 8 10/07/18 06:01 WBC RBC Hgb Hct MCV MCH MCHC RDW Plt Count Seg Neutrophils % Lymphocytes % Monocytes % Eosinophils % Basophils % Absolute Neutrophils Absolute Lymphocytes Absolute Monocytes Absolute Eosinophils Absolute Basophils VBG pH VBG pCO2 VBG HCO3 VBG Base Excess Sodium 142.9 Potassium 4.3 Chloride 113 H Carbon Dioxide 22 Anion Gap 8 BUN 70 H Creatinine 3.49 H Est GFR ( Amer) 21 L Est GFR (Non-Af Amer) 18 L Glucose 67 L Lactic Acid Calcium 8.2 L Total Bilirubin AST ALT Alkaline Phosphatase Total Protein Albumin Urine Color Urine Appearance Urine pH Ur Specific [place] Urine Protein Urine Glucose (UA) Urine Ketones Urine Blood Urine Nitrite Ur Leukocyte Esterase Urine WBC (Auto) Urine RBC (Auto) 10/06/18 16:10 Troponin I 0.031 Impressions: Chest X-Ray 10/06/18 16:18 IMPRESSION: NO ACUTE RADIOGRAPHIC FINDING IN THE CHEST. Assessment and Plan - Diagnosis (1) Abnormal EKG Is this a current diagnosis for this admission?: Yes (2) COPD (chronic obstructive pulmonary disease) Qualifiers: Emphysema type: unspecified Is this a current diagnosis for this admission?: Yes Plan: Repeat 1 PRN bronchodilators. (3) Chronic diastolic CHF (congestive heart failure) Is this a current diagnosis for this admission?: Yes Plan: Continue IV fluid at this time due to sepsis and dehydration. Serum creatinine improving, lungs without crackles, urine output improving. Holding Enestra at this time will continue to monitor for signs of CHF, plan to restart at lower dose prior to discharge home. (4) Complicated UTI (urinary tract infection) Is this a current diagnosis for this admission?: Yes Plan: His urine culture positive for pseudomonas aeruginosa and group B beta-hemolytic Streptococcus. We will put continue appropriate antibiotics. (5) Seizure disorder Is this a current diagnosis for this admission?: Yes Plan: Continue home medication (6) Sepsis Qualifiers: Qualified Code(s): A40.1 - Sepsis due to streptococcus, group B Is this a current diagnosis for this admission?: Yes Plan: Urinary tract origin. Continue zosyn antibiotic renal dose at this time. Urine culture positive for group B Streptococcus which ampicillin is a good choice, but continue to await the 72 hour blood culture to evaluate for serum bacterimia. (7) Type 2 diabetes mellitus Qualifiers: Diabetes mellitus complication detail: with foot ulcer Is this a current diagnosis for this admission?: Yes Plan: Continue his home medication and put him on sliding scale. (8) Anemia Qualifiers: Anemia type: due to chronic kidney disease Chronic kidney disease stage: stage 3 (moderate) Qualified Code(s): N18.3 - Chronic kidney disease, stage 3 (moderate); D63.1 - Anemia in chronic kidney disease; D63.1 - Anemia in chronic kidney disease Is this a current diagnosis for this admission?: Yes Plan: Monitor CBC (9) Hyperglycemia Is this a current diagnosis for this admission?: Yes Plan: Monitor fsbs and treat with sliding scale ac and hs while hospitalized, A1C 6.7. Continue to monitor and plan for current home diabetes care plan. (10) Hyperlipidemia Qualifiers: Hyperlipidemia type: unspecified Qualified Code(s): E78.5 - Hyperlipidemia, unspecified Is this a current diagnosis for this admission?: Yes Plan: Continue current home medication. (11) Tobacco dependence Is this a current diagnosis for this admission?: Yes Plan: Education on smoking cessation. - Time Time Spent with patient: 35 or more minutes Smoking Cessation Education: 3 to 10 minutes Anticipated discharge: Home with Homehealth <ISABEL FRAGA - Last Filed: 10/07/18 19:17> Subjective Subjective:: FLAG MORELIA THIBODEAUX is a 68 year old black male patient with multiple comorbidities including recent history of stroke, seizure disorder, diabetes mellitus, diast olic CHF, tobacco dependence, COPD, hyperlipidemia, hypertension referred from his primary [facility] office with chief complaint of abnormal lab, hypotension lethargy and admitted with sepsis secondary to UTI. Patient was seen on morning rounds. He is found resting in bed comfortably on room air. He was sleeping but woke easily when I said his name. He tells me that he is feeling much better today and his only concern is that we resume his home medications. He denies fever, chills, chest pain, dyspnea, orthopnea, cough, abdominal pain, nausea vomiting and diarrhea. He has no other questions or concerns at this time. No concerns per nursing. Reason For Visit: SEPSIS,COMPLICATED UTI Physical Exam Vital Signs: Temp Pulse Resp BP Pulse Ox 97.5 F 57 L 20 167/77 H 97 10/07/18 15:26 10/07/18 18:35 10/07/18 15:26 10/07/18 15:26 10/07/18 15:26 Intake & Output 10/06/18 10/07/18 10/08/18 06:59 06:59 06:59 Intake Total 2100 1820 Output Total 525 1850 Balance 1575 -30 Weight 86.9 kg General appearance: PRESENT: no acute distress, hard of hearing, well-developed, well-nourished Head exam: PRESENT: atraumatic, normocephalic Eye exam: PRESENT: conjunctiva pink, EOMI, PERRLA. ABSENT: scleral icterus Ear exam: PRESENT: normal external ear exam Mouth exam: PRESENT: dry mucosa, tongue midline Teeth exam: PRESENT: poor dentation Neck exam: PRESENT: full ROM. ABSENT: carotid bruit, JVD, lymphadenopathy, thyromegaly Respiratory exam: PRESENT: clear to auscultation nathan, decreased breath sounds - Bibasilar, symmetrical, unlabored. ABSENT: rales, rhonchi, wheezes Cardiovascular exam: PRESENT: RRR, +S1, +S2. ABSENT: diastolic murmur, rubs, systolic murmur Pulses: PRESENT: normal dorsalis pedis pul Vascular exam: PRESENT: normal capillary refill GI/Abdominal exam: PRESENT: normal bowel sounds, soft. ABSENT: distended, guarding, mass, organolmegaly, rebound, tenderness Rectal exam: PRESENT: deferred Gentrourinary exam: PRESENT: indwelling catheter Extremities exam: PRESENT: full ROM, pedal edema - +2 tight, nonpitting edema. ABSENT: calf tenderness, clubbing Neurological exam: PRESENT: alert, awake, oriented to person, oriented to place, oriented to time, oriented to situation, CN II-XII grossly intact, other. ABSENT: motor sensory deficit Psychiatric exam: PRESENT: appropriate affect, normal mood. ABSENT: homicidal ideation, suicidal ideation Skin exam: PRESENT: dry, intact, warm, other - Chronic venous stasis changes to bilateral lower extremities. ABSENT: cyanosis, rash Results Laboratory Results: 10/07/18 06:01 10/07/18 06:01 10/06/18 10/07/18 10/07/18 19:15 06:01 06:01 WBC 6.3 RBC 2.86 L Hgb 8.2 L Hct 23.9 L MCV 84 MCH 28.8 MCHC 34.4 RDW 13.6 Plt Count 215 Seg Neutrophils % 56.6 Lymphocytes % 23.9 Monocytes % 8.2 Eosinophils % 9.5 H Basophils % 1.8 Absolute Neutrophils 3.5 Absolute Lymphocytes 1.5 Absolute Monocytes 0.5 Absolute Eosinophils 0.6 Absolute Basophils 0.1 VBG pH 7.30 VBG pCO2 46.2 VBG HCO3 22.3 VBG Base Excess -4.0 Sodium 142.9 Potassium 4.3 Chloride 113 H Carbon Dioxide 22 Anion Gap 8 BUN 70 H Creatinine 3.49 H Est GFR ( Amer) 21 L Est GFR (Non-Af Amer) 18 L Glucose 67 L Calcium 8.2 L 10/06/18 16:59 Catheterized Urine Urine Culture - Final Group B Beta Streptococcus 10/06/18 16:10 Troponin I 0.031 Impressions: Chest X-Ray 10/06/18 16:18 IMPRESSION: NO ACUTE RADIOGRAPHIC FINDING IN THE CHEST. Assessment and Plan - Diagnosis (1) Sepsis Qualifiers: Sepsis type: Streptococcus group B Qualified Code(s): A40.1 - Sepsis due to streptococcus, group B Is this a current diagnosis for this admission?: Yes Plan: Patient admitted with sepsis, present on arrival, due to group B beta Streptococcus UTI, evidenced by Hypothermia, hypotension, and acute kidney injury. Urinalysis positive for UTI. Urine culture shows group B beta strep. Blood cultures are negative at 24 hours. He is admitted to [facility] on continuous cardiac telemetry. He received aggressive IV fluid resuscitation by the ED provider; we will continue gentle IV fluids. Monitor closely for evidence of fluid volume overload given his history of CHF. He is empirically treated with IV Zosyn. He did receive 1 dose of IV vancomycin while still in the ED. We will further adjust antibiotics as blood cultures finalized. (2) Urinary tract infection Qualifiers: Urinary tract infection type: site unspecified Hematuria presence: with hematuria Qualified Code(s): N39.0 - Urinary tract infection, site not specified; R31.9 - Hematuria, unspecified Is this a current diagnosis for this admission?: Yes Plan: Urinalysis demonstrates urinary tract infection. Urine culture positive for group B beta strep. Appropriately treated with IV Zosyn; will plan to transition to oral antibiotics once blood culture results have finalized. We will need to consider the patient's penicillin allergy at time of antibiotic selection. Thus far tolerating IV Zosyn without allergic symptoms. (3) Acute renal failure Qualifiers: Acute renal failure type: unspecified Qualified Code(s): N17.9 - Acute kidney failure, unspecified Plan: Patient was admitted with a creatinine of 4.34; outpatient lab on the was 4.50. This is somewhat improved today with creatinine of 3.49. Baseline 1.64. Continue to manage sepsis as above. Continue gentle IV fluids. Avoid nephrotoxic medications as able. Daily chemistries. If his creatinine plateaus or worsens, will consult his primary [facility], Dr. Blackmon. (4) Chronic diastolic CHF (congestive heart failure) Is this a current diagnosis for this admission?: Yes Plan: Stable and without exacerbation at this time. Although the patient does have pitting edema to his lower extremity's, this appears chronic in nature. Lung sounds are clear. He is maintaining oxygen saturations on room air. Patient reports that he takes Entresto; unknown dose. Currently holding this secondary to CARL. Will need to verify dose prior to discharge. He is continuing to receive gentle IV fluids as he appears dehydrated. Continue home dose carvedilol, Plavix and statin therapy. We will monitor closely for evidence of fluid volume overload. Cardiac diet. Daily weights and strict I's and O's. (5) Seizure disorder Is this a current diagnosis for this admission?: Yes Plan: Home dose Keppra. (6) Type 2 diabetes mellitus Qualifiers: Diabetes mellitus complication detail: with foot ulcer Is this a current diagnosis for this admission?: Yes Plan: A1c 6.7%. Patient endorses a history of diabetes mellitus. He is diet controlled only. Continue consistent carb diet. Accu-Cheks before meals and at bedtime with Humalog for sliding scale coverage and hypoglycemia protocol. (7) COPD (chronic obstructive pulmonary disease) Qualifiers: Emphysema type: unspecified Is this a current diagnosis for this admission?: Yes Plan: Stable and without exacerbation at this time. We will provide supplemental oxygen and as needed nebulizers if indicated. - Time Time Spent with patient: 35 or more minutes Smoking Cessation Education: 3 to 10 minutes Anticipated discharge: Home with Homehealth Within: within 72 hours - Inpatient Certification Based on my medical assessment, after consideration of the patient's comorbidities, presenting symptoms, or acuity I expect that the services needed warrant INPATIENT care.: Yes I certify that my determination is in accordance with my understanding of Medicare's requirements for reasonable and necessary INPATIENT services [42 CFR 412.3e].: Yes Medical Necessity: Need For IV Fluids, Need For Continuous Telemetry Monitoring, Need for IV Antibiotics
[2018-10-07] MEDS: CARVEDILOL 12.5 MG TABLET PO SCH (21:25)
[2018-10-07] MEDS: LEVETIRACETAM 500 MG TABLET PO SCH (21:29)
[2018-10-07] MEDS: ATORVASTATIN CALCIUM 80 MG TABLET PO SCH (21:30)
[2018-10-07] MEDS ORDERED: CARVEDILOL 12.5 MG TABLET PO SCH (22:00)
[2018-10-07] MEDS ORDERED: LEVETIRACETAM 500 MG TABLET PO SCH (22:00)
[2018-10-07] MEDS ORDERED: CILOSTAZOL 100 MG TABLET PO SCH (22:00)
[2018-10-07] MEDS ORDERED: ATORVASTATIN CALCIUM 80 MG TABLET PO SCH (22:00)
[2018-10-08] MEDS: IPRATROPIUM/ALBUTEROL 0.5-2.5 MG/3 ML AMPUL NEB SCH ×4 (02:20→20:30)
[2018-10-08] MEDS: PIPERACILLIN SODIUM/TAZOBACTAM 2.25 GM in NORMAL SALINE 50 ML IV SCH ×2 (05:17→12:37)
[2018-10-08] MEDS: HEPARIN SOD (PORCINE) 5,000 UNIT/ML 1 ML SYRINGE SUBCUT SCH ×3 (05:18→21:58)
[2018-10-08 06:37] LABS: ABSOLUTE BASOPHILS # (AUTO) 0.1 10^3/uL (0.0-0.2); ABSOLUTE EOSINOPHILS # (AUTO) 0.7 10^3/uL (0.0-0.6); ABSOLUTE LYMPHOCYTES (AUTO) 1.2 10^3/uL (0.5-4.7); ABSOLUTE MONOCYTES (AUTO) 0.4 10^3/uL (0.1-1.4); ABSOLUTE NEUT (AUTO) 4.2 10^3/uL (1.7-8.2); BASOPHILS % (AUTO) 1.3 % (0-2); EOSINOPHILS % (AUTO) 10.6 % (0-6); HEMATOCRIT 25.9 % (37.9-51.0); HEMOGLOBIN 8.8 g/dL (13.5-17.0); LYMPHOCYTES % (AUTO) 18.9 % (13-45); MEAN CORPUSCULAR HEMOGLOBIN 28.4 pg (27.0-33.4); MEAN CORPUSCULAR VOLUME 84 fl (80-97); PLATELET COUNT 228 10^3/uL (150-450); RED BLOOD COUNT 3.09 10^6/uL (4.35-5.55); RED CELL DISTRIBUTION WIDTH 13.8 % (11.5-14.0); SEGMENTED NEUTROPHILS % (AUTO) 63.2 % (42-78); TOTAL CELLS COUNTED % (AUTO) 100 %; WHITE BLOOD COUNT 6.6 10^3/uL (4.0-10.5)
[2018-10-08 06:55] LABS: ANION GAP 8 (5-19); CALCIUM 8.1 mg/dL (8.4-10.2); CARBON DIOXIDE 20 mmol/L (22-30); CHLORIDE 116 mmol/L (98-107); GLUCOSE 157 mg/dL (75-110); POTASSIUM 4.1 mmol/L (3.6-5.0)
[2018-10-08 07:09] LABS: BLOOD UREA NITROGEN 47 mg/dL (7-20)
[2018-10-08] MEDS: INSULIN LISPRO 100 UNIT/ML 3 ML VIAL SUBCUT SCH ×4 (08:16→21:55)
[2018-10-08] MEDS: CILOSTAZOL 100 MG TABLET PO SCH ×2 (08:18→17:45)
[2018-10-08] MEDS ORDERED: CLOPIDOGREL BISULFATE 75 MG TABLET PO SCH (10:00)
[2018-10-08] MEDS: FAMOTIDINE 20 MG TABLET PO SCH ×2 (10:57→21:58)
[2018-10-08] MEDS: CLOPIDOGREL BISULFATE 75 MG TABLET PO SCH (10:57)
[2018-10-08] MEDS: LEVETIRACETAM 500 MG TABLET PO SCH ×2 (10:58→21:57)
[2018-10-08] MEDS: MULTIVITAMIN TABLET PO SCH (10:58)
[2018-10-08] MEDS: FERROUS SULFATE 325 MG TABLET PO SCH (10:58)
[2018-10-08] MEDS: CARVEDILOL 12.5 MG TABLET PO SCH ×2 (10:58→21:58)
[2018-10-08] MEDS: DOCUSATE SODIUM 100 MG CAPSULE PO SCH ×2 (10:59→17:45)
[2018-10-08] MEDS ORDERED: NORMAL SALINE 1000 ML 1,000 ML IV PRN (14:54)
--- NOTE | 2018-10-08 16:03 | PDOC CONSULTATION ---
Consultation Consult Date: 10/08/18 Provider Consulted: PIERRE MOTT Consult reason:: soft,darkly discolored right heel History of Present Illness Admission Date/PCP: 10/06/18 17:40 LEXUS GARCIA MD History of Present Illness: FLAG MORELIA THIBODEAUX is a 68 year old male with recent Stroke with some residual dysarthria,Diabetic admitted for urosepsis noted to have softness right heel with dark discoloration. has diabetic neuropathy of both feet and was bedridden in the hospital since admiission 2 days ago for urosepsis. Had pressure sore(blister) on the left heel that was debrided by his [employer] a week ago. Denies any pains in both feet likely due to neuropathy. Past Medical History Cardiac Medical History: Reports: Congestive Heart Failure - Chronic systolic, Hyperlipidema, Hypertension Denies: Coronary Artery Disease, Myocardial Infarction Pulmonary Medical History: Reports: Chronic Obstructive Pulmonary Disease (COPD) Denies: Asthma, Bronchitis, Pneumonia, Tuberculosis Neurological Medical History: Reports: Seizures Endocrine Medical History: Reports: Diabetes Mellitus Type 1, Diabetes Mellitus Type 2 Denies: Hypothyroidism GI Medical History: Reports: Gastroesophageal Reflux Disease Musculoskeltal Medical History: Reports: Arthritis Psychiatric Medical History: Denies: Depression Hematology: Reports: Anemia Infectious Medical History: Reports: Methicillin-Resistant Staph Aureus Past Surgical History Past Surgical History: Reports: Internal Defibrillator - With removal, Orthopedi c Surgery Denies: Pacemaker Social History Smoking Status: Current Every Day Smoker Frequency of Alcohol Use: None Hx Recreational Drug Use: No Drugs: None Hx Prescription Drug Abuse: No - Advance Directive Resuscitation Status: Full Code Family History Family History: Reviewed & Not Pertinent, CAD, DM, Malignancy Parental Family History Reviewed: Yes Children Family History Reviewed: No Sibling(s) Family History Reviewed.: No Medication/Allergy Home Medications: Atorvastatin Calcium [Lipitor 80 mg Tablet] 80 mg PO QHS 10/06/18 Carvedilol [Coreg 25 mg Tablet] 25 mg PO Q12 10/06/18 Cilostazol [Pletal 100 mg Tablet] 100 mg PO Q12 10/06/18 Clopidogrel Bisulfate [Plavix 75 mg Tablet] 75 mg PO DAILY 10/06/18 Furosemide [Lasix 40 mg Tablet] 40 mg PO BID 10/06/18 Levetiracetam [Keppra 500 mg Tablet] 500 mg PO Q12 10/06/18 Allergies/Adverse Reactions: Penicillins Allergy (Intermediate, Verified 10/08/18 11:05) swelling Review of Systems Constitutional: PRESENT: as per HPI Musculoskeletal: PRESENT: other - no pains Neurological: PRESENT: other - difficulty ambulating due to stroke,neuropathy. Physical Exam Vital Signs: Temp Pulse Resp BP Pulse Ox 97.2 F 63 15 184/78 H 97 10/08/18 11:39 10/08/18 14:20 10/08/18 14:20 10/08/18 11:39 10/08/18 14:20 Intake & Output 10/07/18 10/08/18 10/09/18 06:59 06:59 06:59 Intake Total 2100 3590 200 Output Total 525 3575 Balance 1575 15 200 Weight 86.9 kg 87.7 kg General appearance: PRESENT: no acute distress Exam: palpable nathan pop arteries Right heel with softness Left heel appears post debridement of blister with no evidence of [id number]. infection I could not feel nathan ankle pulses Both heels non tender Results Laboratory Results: 10/08/18 05:51 10/08/18 05:51 10/08/18 10/08/18 05:51 05:51 WBC 6.6 RBC 3.09 L Hgb 8.8 L Hct 25.9 L MCV 84 MCH 28.4 MCHC 34.0 RDW 13.8 Plt Count 228 Seg Neutrophils % 63.2 Lymphocytes % 18.9 Monocytes % 6.0 Eosinophils % 10.6 H Basophils % 1.3 Absolute Neutrophils 4.2 Absolute Lymphocytes 1.2 Absolute Monocytes 0.4 Absolute Eosinophils 0.7 H Absolute Basophils 0.1 Sodium 144.0 Potassium 4.1 Chloride 116 H Carbon Dioxide 20 L Anion Gap 8 BUN 47 H D Creatinine 2.30 H Est GFR ( Amer) 35 L Est GFR (Non-Af Amer) 29 L Glucose 157 H Calcium 8.1 L 10/06/18 16:59 Catheterized Urine Urine Culture - Final Group B Beta Streptococcus 10/06/18 16:10 Troponin I 0.031 Impressions: Chest X-Ray 10/06/18 16:18 IMPRESSION: NO ACUTE RADIOGRAPHIC FINDING IN THE CHEST. Assessment & Plan - Diagnosis (1) Acute renal failure Qualifiers: Acute renal failure type: unspecified Qualified Code(s): N17.9 - Acute kidney failure, unspecified Is this a current diagnosis for this admission?: No (2) COPD (chronic obstructive pulmonary disease) Qualifiers: Emphysema type: unspecified Is this a current diagnosis for this admission?: Yes (3) Pressure ulcer of right heel, unstageable Is this a current diagnosis for this admission?: Yes (5) Seizure disorder Is this a current diagnosis for this admission?: Yes (6) Type 2 diabetes mellitus Qualifiers: Diabetes mellitus complication detail: with foot ulcer Is this a current diagnosis for this admission?: Yes - Time Time Spent: 30 to 50 Minutes - Inpatient Certification Medical Necessity: Risk of Complication if Not Cared For in Hospital - Plan Summary Plan Summary: No urgent need to debride right heel since is not open This may eventually dry up if pressure is avoided Rec: 1) Avoid pressure on both heels 2) Ok to apply Allevyn to both heels 3) Will re-evaluate tomorrow prior to discharge
[2018-10-08] MEDS: PIPERACILLIN SODIUM/TAZOBACTAM 3.375 GM in NORMAL SALINE 100 ML IV SCH ×2 (17:45→23:13)
[2018-10-08] MEDS ORDERED: HYDRALAZINE HCL INJ/PF 20 MG/1 ML SDV IV ONE (18:30)
--- NOTE | 2018-10-08 19:02 | RADIOLOGY REPORT (SQ) ---
EXAM DESCRIPTION: CT HEAD WITHOUT COMPLETED DATE/TIME: 10/08/2018 6:49 pm REASON FOR STUDY: headache, blurred vision, HTN COMPARISON: 07/24/2018 TECHNIQUE: Axial images acquired through the brain without intravenous contrast. Images reviewed wi th bone, brain and subdural windows. Images stored on PACS. All CT scanners at this facility use dose modulation, iterative reconstruction, and/or weight based d osing when appropriate to reduce radiation dose to as low as reasonably achievable (ALARA). [facility]: Dose Right [facility]: CareDose [facility]: Dose Right [facility]: Teradose 4D [facility]: [employer] RADIATION DOSE: CT Rad equipment meets quality standard of care and radiation dose reduction techniq ues were employed. CTDIvol: 53.2 mGy. DLP: 991 mGy-cm. mGy. LIMITATIONS: None. FINDINGS: VENTRICLES: Normal size and contour. CEREBRUM: No hemorrhage. No midline shift. No evidence for acute infarction. Similar areas of low density in the white matter consistent with old ischemic changes. CEREBELLUM: No masses. No hemorrhage. No alteration of density. No evidence for acute infarction. EXTRAAXIAL SPACES: No fluid collections. No masses. ORBITS AND GLOBE: No intra- or extraconal masses. Normal contour of globe without masses. CALVARIUM: No fracture. PARANASAL SINUSES: No fluid or mucosal thickening. SOFT TISSUES: No mass or hematoma. OTHER: No other significant finding. IMPRESSION: No hemorrhage. No midline shift. No evidence for acute infarction. Similar areas of lo w density in the white matter consistent with old ischemic changes. EVIDENCE OF ACUTE STROKE: NO. COMMENT: Quality ID # [id number]: Final reports with documentation of one or more dose reduction techniques (e.g., Automated exposure control, adjustment of the mA and/or kV according to patient size, use of iterative reconstruction technique) TECHNICAL DOCUMENTATION: JOB ID: [id number] [id number] [employer]- All Rights Reserved Reading location - IP/workstation name: [email or web address]
--- NOTE | 2018-10-08 19:54 | PDOC PROGRESS REPORT ---
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 Patient was seen on morning rounds. He is found resting in bed comfortably on room air. He was sleeping but woke easily when I said his name. He tells me that he is feeling much better today and his only concern is that we resume his home medications. He denies fever, chills, chest pain, dyspnea, orthopnea, cough, abdominal pain, nausea vomiting and diarrhea. He has no other questions or concerns at this time. Hoping to go home soon. No concerns per nursing. Reason For Visit: SEPSIS,COMPLICATED UTI Physical Exam Vital Signs: Temp Pulse Resp BP Pulse Ox 97.5 F 65 18 175/94 H 100 10/08/18 16:53 10/08/18 16:53 10/08/18 16:53 10/08/18 16:53 10/08/18 16:53 Intake & Output 10/07/18 10/08/18 10/09/18 06:59 06:59 06:59 Intake Total 2100 3590 300 Output Total 525 3575 Balance 1575 15 300 Weight 86.9 kg 87.7 kg General appearance: PRESENT: no acute distress, cooperative, hard of hearing, well-developed, well-nourished Head exam: PRESENT: atraumatic, normocephalic Eye exam: PRESENT: conjunctiva pink, EOMI, PERRLA. ABSENT: scleral icterus Ear exam: PRESENT: normal external ear exam Mouth exam: PRESENT: moist, tongue midline Teeth exam: PRESENT: poor dentation Neck exam: ABSENT: carotid bruit, JVD, lymphadenopathy, thyromegaly Respiratory exam: PRESENT: clear to auscultation nathan, decreased breath sounds - bibasilar, symmetrical, unlabored. ABSENT: rales, rhonchi, wheezes Cardiovascular exam: PRESENT: RRR. ABSENT: diastolic murmur, rubs, systolic murmur Pulses: PRESENT: normal dorsalis pedis pul Vascular exam: PRESENT: normal capillary refill GI/Abdominal exam: PRESENT: normal bowel sounds, soft. ABSENT: distended, guarding, mass, organolmegaly, rebound, tenderness Rectal exam: PRESENT: deferred Extremities exam: PRESENT: full ROM, +1 edema - BLE. ABSENT: calf tenderness, clubbing, pedal edema Neurological exam: PRESENT: alert, awake, oriented to person, oriented to place, oriented to time, oriented to situation, CN II-XII grossly intact. ABSENT: mo tor sensory deficit Psychiatric exam: PRESENT: appropriate affect, normal mood. ABSENT: homicidal ideation, suicidal ideation Skin exam: PRESENT: dry, intact, warm. ABSENT: cyanosis, rash Results Laboratory Results: 10/08/18 05:51 10/08/18 05:51 10/08/18 10/08/18 05:51 05:51 WBC 6.6 RBC 3.09 L Hgb 8.8 L Hct 25.9 L MCV 84 MCH 28.4 MCHC 34.0 RDW 13.8 Plt Count 228 Seg Neutrophils % 63.2 Lymphocytes % 18.9 Monocytes % 6.0 Eosinophils % 10.6 H Basophils % 1.3 Absolute Neutrophils 4.2 Absolute Lymphocytes 1.2 Absolute Monocytes 0.4 Absolute Eosinophils 0.7 H Absolute Basophils 0.1 Sodium 144.0 Potassium 4.1 Chloride 116 H Carbon Dioxide 20 L Anion Gap 8 BUN 47 H D Creatinine 2.30 H Est GFR ( Amer) 35 L Est GFR (Non-Af Amer) 29 L Glucose 157 H Calcium 8.1 L 10/06/18 16:10 Troponin I 0.031 Impressions: Chest X-Ray 10/06/18 16:18 IMPRESSION: NO ACUTE RADIOGRAPHIC FINDING IN THE CHEST. Head CT 10/08/18 00:00 IMPRESSION: No hemorrhage. No midline shift. No evidence for acute infarction. Similar areas of low density in the white matter consistent with old ischemic changes. EVIDENCE OF ACUTE STROKE: NO. Assessment and Plan - Diagnosis (1) Sepsis Qualifiers: Sepsis type: Streptococcus group B Qualified Code(s): A40.1 - Sepsis due to streptococcus, group B Is this a current diagnosis for this admission?: Yes Plan: Sepsis resolved. Patient admitted with sepsis, present on arrival, due to group B beta Streptococcus UTI, evidenced by Hypothermia temperature of 96.8, hypotension with bp of 78/66, and acute kidney injury with creatinine of 4.34 on admission. Urinalysis positive for UTI. Urine culture shows group B beta strep. Blood cultures are negative at 48 hours. He is admitted to [facility] on continuous cardiac telemetry. He received aggressive IV fluid resuscitation by the ED provider; we will continue IV fluids at 25 ml/hr to maintain IV access while receiving IV antibiotics. Continue to monitor closely for evidence of fluid volume overload given his history of CHF. He is empirically treated with IV Zosyn. He did receive 1 dose of IV vancomycin while still in the ED. We will further adjust antibiotics as blood cultures finalized. (2) Urinary tract infection Qualifiers: Urinary tract infection type: site unspecified Hematuria presence: with hematuria Qualified Code(s): N39.0 - Urinary tract infection, site not specified; R31.9 - Hematuria, unspecified Is this a current diagnosis for this admission?: Yes Plan: Urinalysis demonstrates urinary tract infection. Urine culture positive for group B beta strep. Appropriately treated with IV Zosyn; will plan to transition to oral antibiotics once blood culture results have finalized. We will need to consider the patient's penicillin allergy at time of antibiotic selection. Thus far tolerating IV Zosyn without allergic symptoms. (3) Acute renal failure Qualifiers: Acute renal failure type: unspecified Qualified Code(s): N17.9 - Acute kidney failure, unspecified Is this a current diagnosis for this admission?: No Plan: Patient was admitted with a creatinine of 4.34; outpatient lab on the was 4.50. This is somewhat improved today with creatinine of 2.30. Baseline 1.64. Avoid nephrotoxic medications as able. Holding furosemide. Patient reports he has been taking a sample pack of Entresto (unknown dose); also on hold. Daily chemistries. (4) Chronic diastolic CHF (congestive heart failure) Is this a current diagnosis for this admission?: Yes Plan: Stable and without exacerbation at this time. Although the patient does have pitting edema to his lower extremity's, this appears chronic in nature. Lung sounds are clear. He is maintaining oxygen saturations on room air. Patient reports that he takes Entresto; unknown dose. Currently holding this secondary to CARL. Will need to verify dose prior to discharge. Continue home dose carvedilol, Plavix and statin therapy. We will monitor closely for evidence of fluid volume overload. Cardiac diet. Daily weights and strict I's and O's. (5) Hypertension Is this a current diagnosis for this admission?: Yes Plan: IV hydralazine as needed for blood pressure control. Start amlodipine 5 mg nightly. Otherwise antihypertensives as above. (6) Seizure disorder Is this a current diagnosis for this admission?: Yes Plan: Home dose Keppra. Continue seizure precautions. (7) Type 2 diabetes mellitus Qualifiers: Diabetes mellitus complication detail: with foot ulcer Is this a current diagnosis for this admission?: Yes Plan: A1c 6.7%. Patient endorses a history of diabetes mellitus. He is diet controlled only. Continue consistent carb diet. Accu-Cheks before meals and at bedtime with Humalog for sliding scale coverage and hypoglycemia protocol. (8) COPD (chronic obstructive pulmonary disease) Qualifiers: Emphysema type: unspecified Is this a current diagnosis for this admission?: Yes Plan: Stable and without exacerbation at this time. We will provide supplemental oxygen and as needed nebulizers if indicated. (9) Pressure ulcer of right heel, unstageable Is this a current diagnosis for this admission?: Yes Plan: Noted unstagable pressure ulcer to right heel not open, area is soft with flu ctuation noted. Patient denies pain with palpation. Patient is [facility] to [facility], consulted Dr. Khan who will see him. Chang boots ordered. - Time Time Spent with patient: 25-34 minutes Medications reviewed and adjusted accordingly: Yes Anticipated discharge: Home with Homehealth Within: within 24 hours
[2018-10-08] MEDS: ATORVASTATIN CALCIUM 80 MG TABLET PO SCH (21:57)
[2018-10-08] MEDS ORDERED: ATORVASTATIN CALCIUM 80 MG TABLET PO SCH (22:00)
[2018-10-08] MEDS ORDERED: AMLODIPINE BESYLATE 10 MG TABLET PO SCH (22:00)
[2018-10-09] MEDS: IPRATROPIUM/ALBUTEROL 0.5-2.5 MG/3 ML AMPUL NEB SCH ×3 (02:19→13:51)
[2018-10-09 05:03] LABS: ABSOLUTE BASOPHILS # (AUTO) 0.1 10^3/uL (0.0-0.2); ABSOLUTE EOSINOPHILS # (AUTO) 0.8 10^3/uL (0.0-0.6); ABSOLUTE LYMPHOCYTES (AUTO) 1.1 10^3/uL (0.5-4.7); ABSOLUTE MONOCYTES (AUTO) 0.4 10^3/uL (0.1-1.4); ABSOLUTE NEUT (AUTO) 4.2 10^3/uL (1.7-8.2); BASOPHILS % (AUTO) 1.2 % (0-2); HEMATOCRIT 25.2 % (37.9-51.0); HEMOGLOBIN 8.8 g/dL (13.5-17.0); MEAN CORPUSCULAR VOLUME 83 fl (80-97); PLATELET COUNT 221 10^3/uL (150-450); RED BLOOD COUNT 3.03 10^6/uL (4.35-5.55); RED CELL DISTRIBUTION WIDTH 13.5 % (11.5-14.0); SEGMENTED NEUTROPHILS % (AUTO) 63.8 % (42-78); TOTAL CELLS COUNTED % (AUTO) 100 %; WHITE BLOOD COUNT 6.6 10^3/uL (4.0-10.5)
[2018-10-09 05:28] LABS: ANION GAP 8 (5-19); BLOOD UREA NITROGEN 31 mg/dL (7-20); CALCIUM 8.4 mg/dL (8.4-10.2); CARBON DIOXIDE 21 mmol/L (22-30); CHLORIDE 116 mmol/L (98-107); GLUCOSE 113 mg/dL (75-110); POTASSIUM 4.1 mmol/L (3.6-5.0); SODIUM 144.9 mmol/L (137-145)
[2018-10-09] MEDS: HEPARIN SOD (PORCINE) 5,000 UNIT/ML 1 ML SYRINGE SUBCUT SCH ×2 (06:44→14:46)
[2018-10-09] MEDS: PIPERACILLIN SODIUM/TAZOBACTAM 3.375 GM in NORMAL SALINE 100 ML IV SCH ×2 (06:44→12:12)
[2018-10-09] MEDS: INSULIN LISPRO 100 UNIT/ML 3 ML VIAL SUBCUT SCH ×2 (08:56→12:11)
[2018-10-09] MEDS: DOCUSATE SODIUM 100 MG CAPSULE PO SCH (10:02)
[2018-10-09] MEDS: MULTIVITAMIN TABLET PO SCH (10:02)
[2018-10-09] MEDS: FAMOTIDINE 20 MG TABLET PO SCH (10:02)
[2018-10-09] MEDS: FERROUS SULFATE 325 MG TABLET PO SCH (10:02)
[2018-10-09] MEDS: CARVEDILOL 12.5 MG TABLET PO SCH (10:02)
[2018-10-09] MEDS: CLOPIDOGREL BISULFATE 75 MG TABLET PO SCH (10:02)
[2018-10-09] MEDS: LEVETIRACETAM 500 MG TABLET PO SCH (10:03)
[2018-10-09] MEDS: CILOSTAZOL 100 MG TABLET PO SCH (10:04)
[2018-10-09 12:36] VITALS: BP 78/37
--- NOTE | 2018-10-09 15:30 | PDOC PROGRESS REPORT ---
Subjective Progress Note for:: 10/09/18 Subjective:: no pains Reason For Visit: SEPSIS,COMPLICATED UTI Physical Exam Vital Signs: Temp Pulse Resp BP Pulse Ox 97.5 F 69 18 78/37 L 99 10/09/18 12:34 10/09/18 13:53 10/09/18 13:53 10/09/18 12:34 10/09/18 13:53 Intake & Output 10/08/18 10/09/18 10/10/18 06:59 06:59 06:59 Intake Total 3590 1841 200 Output Total 3575 2695 Balance 15 -854 200 Weight 87.7 kg 85.1 kg Exam: Blister on the right heel remains closed. Not inflamed and non tender Results Laboratory Results: 10/09/18 04:34 10/09/18 04:34 10/09/18 10/09/18 04:34 04:34 WBC 6.6 RBC 3.03 L Hgb 8.8 L Hct 25.2 L MCV 83 MCH 29.0 MCHC 35.0 RDW 13.5 Plt Count 221 Seg Neutrophils % 63.8 Lymphocytes % 17.0 Monocytes % 6.0 Eosinophils % 12.0 H Basophils % 1.2 Absolute Neutrophils 4.2 Absolute Lymphocytes 1.1 Absolute Monocytes 0.4 Absolute Eosinophils 0.8 H Absolute Basophils 0.1 Sodium 144.9 Potassium 4.1 Chloride 116 H Carbon Dioxide 21 L Anion Gap 8 BUN 31 H Creatinine 1.87 H Est GFR ( Amer) 44 L Est GFR (Non-Af Amer) 36 L Glucose 113 H Calcium 8.4 10/06/18 16:10 Troponin I 0.031 Impressions: Chest X-Ray 10/06/18 16:18 IMPRESSION: NO ACUTE RADIOGRAPHIC FINDING IN THE CHEST. Head CT 10/08/18 00:00 IMPRESSION: No hemorrhage. No midline shift. No evidence for acute infar ction. Similar areas of low density in the white matter consistent with old ischemic changes. EVIDENCE OF ACUTE STROKE: NO. Assessment & Plan - Diagnosis (1) Acute renal failure Qualifiers: Acute renal failure type: unspecified Qualified Code(s): N17.9 - Acute kidney failure, unspecified Is this a current diagnosis for this admission?: No (2) COPD (chronic obstructive pulmonary disease) Qualifiers: Emphysema type: unspecified Is this a current diagnosis for this admission?: Yes (3) Pressure ulcer of right heel, unstageable Is this a current diagnosis for this admission?: Yes (5) Seizure disorder Is this a current diagnosis for this admission?: Yes (6) Type 2 diabetes mellitus Qualifiers: Diabetes mellitus complication detail: with foot ulcer Is this a current diagnosis for this admission?: Yes - Time Time Spent with patient: 15-24 minutes - Plan Summary Plan Summary: Would leave blister on right heel alone as long as remains intact. He could follow up with his college and career counselor on OPD basis Just needs continued offloading to both heels. Will sign off.
--- NOTE | 2018-10-11 14:00 | PDOC DISCHARGE SUMMARY ---
General - Admit/Disc Date/PCP Admission Date/Primary Care Provider: 10/06/18 17:40 LEXUS GARCIA MD Discharge Date: 10/09/18 - Discharge Diagnosis (1) Sepsis Is this a current diagnosis for this admission?: Yes Summary: Sepsis resolved. Patient admitted with sepsis, present on arrival, due to group B beta Streptococcus UTI, evidenced by Hypothermia temperature of 96.8, hypotension with bp of 78/66, and acute kidney injury with creatinine of 4.34 on admission. Urinalysis positive for UTI. Urine culture shows group B beta strep. Blood cultures are negative at 4days. He was admitted to [facility] on continuous cardiac telemetry. He was provided appropriate IV fluid resuscitation. He was empirically treated with IV Zosyn and 1 dose of IV vancomycin while still in the ED. Antibiotic adjusted to p.o. Levaquin based upon urine culture results for completion of antibiotic therapy post discharge. (2) Urinary tract infection Is this a current diagnosis for this admission?: Yes Summary: Urinalysis demonstrates urinary tract infection. Urine culture positive for group B beta strep. Appropriately treated with IV Zosyn; transition to p.o. Levaquin for completion of therapy post discharge. (3) Acute renal failure Is this a current diagnosis for this admission?: No Summary: Patient is admitted with a creatinine of 4.34; baseline 1.64. His diuretics were held. He is provided IV fluids. Creatinine particularly improved and is 1.87 on day of discharge. (4) Chronic diastolic CHF (congestive heart failure) Is this a current diagnosis for this admission?: Yes Summary: Stable and without exacerbation at this time. He is maintaining oxygen saturations on room air; edema to BLE has resolved. Patient reports that he takes Entresto; unknown dose (received sample packs from car seat upholsterer). Echocardiogram July 2018 demonstrated LVEF greater than 60%. His home dose carvedilol, Plavix and statin therapy were continued. His Entresto and furosemide were placed on hold. At discharge, the patient is advised to contact his established car seat upholsterer, notify them of the admission, and follow-up at the earliest available appointment. He is directed to continue holding his Entresto and furosemide. He is advised to weigh himself daily and to resume his furosemide if he gains 2 pounds overnight. Spoke with discharge planning and have arranged for home health nurse to assist with medication and disease management. (5) Hypertension Is this a current diagnosis for this admission?: Yes Summary: Continue home dose carvedilol. Have started amlodipine 5 mg nightly. Continue cardiac diet. Continue daily weights; resume furosemide if he gains 2 pounds overnight. Patient is advised to contact his established car seat upholsterer to follow-up as soon as possible. (6) Seizure disorder Is this a current diagnosis for this admission?: Yes Summary: Continue home dose Keppra. (7) Type 2 diabetes mellitus Is this a current diagnosis for this admission?: Yes Summary: A1c 6.7%. Patient endorses a history of diabetes mellitus. He is diet controlled only. (8) COPD (chronic obstructive pulmonary disease) Is this a current diagnosis for this admission?: Yes Summary: Stable and without exacerbation at this time. (9) Pressure ulcer of right heel, unstageable Is this a current diagnosis for this admission?: Yes Summary: Ruled out. Concern for possible unstageable pressure ulcer to the right heel. Surgery was consulted; Dr. Khan advises that there is no evidence for developing ulcer and no need for surgical intervention at this time. Recommend heel off-loading; patient is educated on importance of using pillows to float heel. Follow up with PCP for continued monitoring. - Additional Information Resuscitation Status: Full Code Discharge Diet: Cardiac, Other (Comments) Discharge Activity: Activity As Tolerated, Balance Activity w/Rest, Slowly Increase Activity, Supervised Activity Prescriptions: Amlodipine Besylate [Norvasc 10 mg Tablet] 10 mg PO QHS #30 tablet Ferrous Sulfate [Feosol 325 mg Tablet] 325 mg PO DAILY #90 tablet Levofloxacin [Levaquin 500 mg Tablet] 500 mg PO DAILY #10 tablet Multivitamin [Tab-A-Alyce (Multiple Vitamin) Tablet] 1 tab PO DAILY #90 tablet Home Medications: Atorvastatin Calcium [Lipitor 80 mg Tablet] 80 mg PO QHS 10/06/18 Carvedilol [Coreg 25 mg Tablet] 25 mg PO Q12 10/06/18 Cilostazol [Pletal 100 mg Tablet] 100 mg PO Q12 10/06/18 Clopidogrel Bisulfate [Plavix 75 mg Tablet] 75 mg PO DAILY 10/06/18 Levetiracetam [Keppra 500 mg Tablet] 500 mg PO Q12 10/06/18 Acetaminophen [Tylenol 325 mg Tablet] 650 mg PO Q4HP PRN tablet 10/09/18 Amlodipine Besylate [Norvasc 10 mg Tablet] 10 mg PO QHS #30 tablet 10/09/18 Atorvastatin Calcium [Lipitor 80 mg Tablet] 80 mg PO QHS tablet 10/09/18 Carvedilol [Coreg 12.5 mg Tablet] 25 mg PO Q12 tablet 10/09/18 Cilostazol [Pletal 100 mg Tablet] 100 mg PO BIDACBS tablet 10/09/18 Clopidogrel Bisulfate [Plavix 75 mg Tablet] 75 mg PO DAILY tablet 10/09/18 Docusate Sodium [Colace 100 mg Capsule] 100 mg PO BID capsule 10/09/18 Ferrous Sulfate [Feosol 325 mg Tablet] 325 mg PO DAILY #90 tablet 10/09/18 Levetiracetam [Keppra 500 mg Tablet] 500 mg PO Q12 tablet 10/09/18 Levofloxacin [Levaquin 500 mg Tablet] 500 mg PO DAILY #10 tablet 10/09/18 Multivitamin [Tab-A-Alyce (Multiple Vitamin) Tablet] 1 tab PO DAILY #90 tablet 10/09/18 History of Present Illness History of Present Illness: H&P per Dr. 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 His sister states that the patient had had increased lethargy and foul-smelling urine on Friday which is about 4 days ago. His urine culture which were done [address] Blackmon's office was positive for Pseudomonas, group B Streptococcus and Sienna species. There is no report of fever, chills, cough, palpitation or diaphoresis. Patient bolused with normal saline and his lethargy relatively imp roved. His urinary catheter drains very turbid urine. His urinalysis is positive for leukocyte esterase and pyuria. His blood work shows elevated creatinine of 4 his baseline creatinine is around 2.4. Because of patient is lethargic brief history is obtained from his sister and ER attending note. Physical Exam Vital Signs: Temp Pulse Resp BP Pulse Ox 97.5 F 69 18 78/37 L 99 10/09/18 12:34 10/09/18 13:53 10/09/18 13:53 10/09/18 12:34 10/09/18 13:53 Intake & Output 10/10/18 10/11/18 10/12/18 06:59 06:59 06:59 Intake Total 200 Balance 200 General appearance: PRESENT: no acute distress, cooperative, hard of hearing, well-developed, well-nourished Head exam: PRESENT: atraumatic, normocephalic Eye exam: PRESENT: conjunctiva pink, EOMI, PERRLA. ABSENT: scleral icterus Ear exam: PRESENT: normal external ear exam Mouth exam: PRESENT: moist, tongue midline Neck exam: ABSENT: carotid bruit, JVD, lymphadenopathy, thyromegaly Respiratory exam: PRESENT: clear to auscultation nathan, symmetrical, unlabored. ABSENT: rales, rhonchi, wheezes Cardiovascular exam: PRESENT: RRR. ABSENT: diastolic murmur, rubs, systolic murmur Pulses: PRESENT: normal dorsalis pedis pul Vascular exam: PRESENT: normal capillary refill GI/Abdominal exam: PRESENT: normal bowel sounds, soft. ABSENT: distended, guarding, mass, organolmegaly, rebound, tenderness Rectal exam: PRESENT: deferred Extremities exam: PRESENT: full ROM. ABSENT: calf tenderness, clubbing, pedal edema, +1 edema Neurological exam: PRESENT: alert, awake, oriented to person, oriented to place, oriented to time, oriented to situation, CN II-XII grossly intact, other - Slightly slurred speech at baseline. ABSENT: motor sensory deficit Psychiatric exam: PRESENT: appropriate affect, normal mood. ABSENT: homicidal ideation, suicidal ideation Skin exam: PRESENT: dry, warm. ABSENT: cyanosis, intact - chronic wound (POA) to left heel, rash Results Laboratory Results: 10/09/18 04:34 10/09/18 04:34 10/06/18 16:10 Troponin I 0.031 Impressions: Chest X-Ray 10/06/18 16:18 IMPRESSION: NO ACUTE RADIOGRAPHIC FINDING IN THE CHEST. Head CT 10/08/18 00:00 IMPRESSION: No hemorrhage. No midline shift. No evidence for acute infa rction. Similar areas of low density in the white matter consistent with old ischemic changes. EVIDENCE OF ACUTE STROKE: NO. Qualifiers - * PATIENT BEING DISCHARGED WITH ANY OF THE FOLLOWING DIAGNOSIS: No Acute Heart Failure - Is this a Heart Failure Patient?: Yes Documentation of LVEF assessment?: Yes LVEF < 40%?: No- if no continue to question #3 3. Anticoagulant therapy for permanect/persistent/paraoxysmal Afib or Aflutter: N/A Plan Discharge Plan: Patient is discharged home with home health services. Follow-up with primary care provider within 1 week. Contact car seat upholsterer and notify them of admission; follow-up as soon as possibl e. Please let them know that Entresto has been placed on hold secondary to acute kidney injury. They will likely want to restart this medication at a lower dose or trial a different class of heart medication. Furosemide has also been placed on hold. Continue to hold this medication until follow up appointment w/ car seat upholsterer UNLESS gain 2 lbs overnight. If you do gain 2 lbs overnight, resume just the morning dose of your furosemide. Weigh daily; call car seat upholsterer for any weight gain greater than 2 pounds overnight. Eat a low-sodium diet. Return to the emergency department as needed for concerning symptoms. Time Spent: Greater than 30 Minutes
== END 2018-10-09 14:40 | disposition home health service (06) | DRG 871 ==
LOC: ER 15:59 → EH 17:40 → 3S 19:52
PROVIDERS: ADMIT Internal Medicine; ATTEND Internal Medicine
DX: A40.1 Sepsis due to streptococcus, group B (principal); R65.21 Severe sepsis with septic shock; N39.0 Urinary tract infection, site not specified; N17.9 Acute kidney failure, unspecified; I50.32 Chronic diastolic (congestive) heart failure; E78.5 Hyperlipidemia, unspecified; Z88.0 Allergy status to penicillin; I11.0 Hypertensive heart disease with heart failure; G40.909 Epilepsy, unspecified, not intractable, without status epilepticus; K21.9 Gastro-esophageal reflux disease without esophagitis; M19.90 Unspecified osteoarthritis, unspecified site; Z86.14 Personal history of Methicillin resistant Staphylococcus aureus infection; I44.0 Atrioventricular block, first degree; I69.322 Dysarthria following cerebral infarction; Z74.01 Bed confinement status; L89.610 Pressure ulcer of right heel, unstageable; E11.621 Type 2 diabetes mellitus with foot ulcer; E11.40 Type 2 diabetes mellitus with diabetic neuropathy, unspecified; J43.9 Emphysema, unspecified; E86.0 Dehydration; B96.5 Pseudomonas (aeruginosa) (mallei) (pseudomallei) as the cause of diseases classified elsewhere; D63.1 Anemia in chronic kidney disease; E11.65 Type 2 diabetes mellitus with hyperglycemia; Z79.4 Long term (current) use of insulin
CPT/HCPCS: 36415; 70450; 71045; 80048; 80053; 81001; 82803; 82962; 83036; 83605; 84484; 85025; 85610; 87040; 87086; 87088; 93005; 93010; 94640; 96365; 96375; 99285; J0360; J1644; J1815; J2543; J3370; J7030; J7050; J7620

== ENCOUNTER → 2018-10-27 | Outpatient (CLI) | payer MEDICARE ==
[2018-10-27 13:44] LABS: HEMATOCRIT 27.4 % (37.9-51.0); HEMOGLOBIN 9.5 g/dL (13.5-17.0); MEAN CORPUSCULAR HGB CONC 34.7 g/dL (32.0-36.0); MEAN CORPUSCULAR VOLUME 84 fl (80-97); PLATELET COUNT 239 10^3/uL (150-450); RED BLOOD COUNT 3.28 10^6/uL (4.35-5.55); RED CELL DISTRIBUTION WIDTH 14.9 % (11.5-14.0); WHITE BLOOD COUNT 7.1 10^3/uL (4.0-10.5)
[2018-10-27 14:09] LABS: ANION GAP 11 (5-19); BLOOD UREA NITROGEN 37 mg/dL (7-20); CALCIUM 9.2 mg/dL (8.4-10.2); CARBON DIOXIDE 25 mmol/L (22-30); CHLORIDE 107 mmol/L (98-107); GLUCOSE 190 mg/dL (75-110); PHOSPHORUS 3.9 mg/dL (2.5-4.5); POTASSIUM 4.3 mmol/L (3.6-5.0); SODIUM 142.7 mmol/L (137-145)
[2018-10-27 14:56] LABS: UR PRO/CREAT RATIO RESULT 0.4 mg/mg (0.0-0.2); URINE CREATININE 66.6 mg/dL (22-328); URINE PROTEIN 28.7 mg/dL (<12)
[2018-10-27 15:19] LABS: APPEARANCE,URINE SLIGHTLY-CLOUDY; BILIRUBIN,URINE NEGATIVE (NEGATIVE); COLOR,URINE STRAW; GLUCOSE, URINE NEGATIVE (NEGATIVE); KETONES,URINE NEGATIVE (NEGATIVE); LEUKOCYTE ESTERASE,URINE LARGE (NEGATIVE); NITRITE,URINE NEGATIVE (NEGATIVE); PROTEIN,URINE 30 mg/dL (NEGATIVE); UROBILINOGEN,URINE NEGATIVE mg/dL (<2.0)
== END ==
LOC: OD 12:44
PROVIDERS: ATTEND Physician Assistant Medical
DX: N18.3 Chronic kidney disease, stage 3 (moderate) (principal); I12.9 Hypertensive chronic kidney disease with stage 1 through stage 4 chronic kidney disease, or unspecified chronic kidney disease; E11.22 Type 2 diabetes mellitus with diabetic chronic kidney disease; N17.9 Acute kidney failure, unspecified
CPT/HCPCS: 36415; 80048; 81001; 82570; 82728; 83540; 83550; 83970; 84100; 84156; 85027

== ENCOUNTER 2018-11-24 04:11 | Emergency (ER) | payer MEDICARE ==
[2018-11-24] MEDS ORDERED: ASPIRIN 81 MG TABLET, CHEWABLE PO ONE (04:27)
[2018-11-24 05:44] LABS: ABSOLUTE BASOPHILS # (AUTO) 0.1 10^3/uL (0.0-0.2); ABSOLUTE EOSINOPHILS # (AUTO) 0.5 10^3/uL (0.0-0.6); ABSOLUTE LYMPHOCYTES (AUTO) 1.3 10^3/uL (0.5-4.7); ABSOLUTE MONOCYTES (AUTO) 0.6 10^3/uL (0.1-1.4); ABSOLUTE NEUT (AUTO) 5.4 10^3/uL (1.7-8.2); EOSINOPHILS % (AUTO) 6.5 % (0-6); HEMATOCRIT 28.7 % (37.9-51.0); HEMOGLOBIN 9.7 g/dL (13.5-17.0); LYMPHOCYTES % (AUTO) 16.5 % (13-45); MEAN CORPUSCULAR HEMOGLOBIN 29.1 pg (27.0-33.4); MEAN CORPUSCULAR HGB CONC 33.9 g/dL (32.0-36.0); MEAN CORPUSCULAR VOLUME 86 fl (80-97); MONOCYTES % (AUTO) 7.8 % (3-13); PLATELET COUNT 242 10^3/uL (150-450); RED BLOOD COUNT 3.35 10^6/uL (4.35-5.55); RED CELL DISTRIBUTION WIDTH 14.3 % (11.5-14.0); SEGMENTED NEUTROPHILS % (AUTO) 68.2 % (42-78); TOTAL CELLS COUNTED % (AUTO) 100 %
[2018-11-24 05:59] LABS: ALBUMIN 4.1 g/dL (3.5-5.0); ALKALINE PHOSPHATASE 125 U/L (38-126); ANION GAP 9 (5-19); ASPARTATE AMINO TRANSFERASE 46 U/L (17-59); BILIRUBIN,DIRECT 0.3 mg/dL (0.0-0.4); BILIRUBIN,TOTAL 0.4 mg/dL (0.2-1.3); BLOOD UREA NITROGEN 40 mg/dL (7-20); CALCIUM 8.7 mg/dL (8.4-10.2); CARBON DIOXIDE 27 mmol/L (22-30); CHLORIDE 107 mmol/L (98-107); CREATINE KINASE 147 U/L (55-170); GLUCOSE 172 mg/dL (75-110); POTASSIUM 4.2 mmol/L (3.6-5.0); TOTAL PROTEIN 7.6 g/dL (6.3-8.2)
[2018-11-24 06:10] LABS: CREATINE KINASE MB 0.88 ng/mL (<4.55); NT PRO BNP 140 pg/mL (5-900)
[2018-11-24 06:11] LABS: TROPONIN I < 0.012 ng/mL
--- NOTE | 2018-11-24 07:07 | ER Document Report ---
ED General - General Chief Complaint: Rib Pain Stated Complaint: FALL Time Seen by Provider: 11/24/18 06:49 TRAVEL OUTSIDE OF THE [place] IN LAST 30 DAYS: No - HPI Notes: Patient is a 68-year-old gentleman with comp gated medical history presents to the emergency department for evaluation of rib pain after a fall. 4 days ago, he was using his walker to go into his room. His left leg would not cooperate with him. This is chronic from a CVA. He then fell, striking his left ribs on the side rail of the bed. He denies hitting his head. No loss of consciousness. No neck or back pain. He was able to get off the floor with assistance from his daughter. He really did not complain of much pain until the next morning, at which time he stated he started to have left-sided anterior chest wall pain. He states he has no shortness of breath, but has significant pain with coughing. He states he is really not coughing very much. No fevers or chills. No nausea or vomiting. He is taking his medications as prescribed. He has not really tried anything at home for his pain. - Related Data Allergies/Adverse Reactions: Penicillins Allergy (Intermediate, Verified 11/24/18 04:29) swelling Past Medical History - General Information source: Patient, Relative - Social History Smoking Status: Current Some Day Smoker Chew tobacco use (# tins/day): No Frequency of alcohol use: None Drug Abuse: None Family History: Reviewed & Not Pertinent, CAD, DM, Malignancy Patient has suicidal ideation: No Patient has homicidal ideation: No - Past Medical History Cardiac Medical History: Reports: Hx Congestive Heart Failure - Chronic systolic, Hx Hypercholesterolemia, Hx Hypertension Denies: Hx Coronary Artery Disease, Hx Heart Attack Pulmonary Medical History: Reports: Hx COPD Denies: Hx Asthma, Hx Bronchitis, Hx Pneumonia, Hx Tuberculosis Neurological Medical History: Reports: Hx Cerebrovascular Accident, Hx Seizures Endocrine Medical History: Reports: Hx Diabetes Mellitus Type 2. Denies: Hx Hypothyroidism Renal/ Medical History: Reports: Hx Renal Insufficiency. Denies: Hx Peritoneal Dialysis GI Medical History: Reports: Hx Gastroesophageal Reflux Disease Musculoskeletal Medical History: Reports Hx Arthritis Psychiatric Medical History: Denies: Hx Depression Infectious Medical History: Reports: Hx MRSA Past Surgical History: Reports: Hx Internal Defibrillator - With removal, Hx Orthopedic Surgery. Denies: Hx Pacemaker - Immunizations Hx Diphtheria, Pertussis, Tetanus Vaccination: Yes Hx Pneumococcal Vaccination: 01/19/11 Review of Systems - Review of Systems Constitutional: No symptoms reported EENT: No symptoms reported Cardiovascular: Chest pain Respiratory: See HPI Gastrointestinal: No symptoms reported Genitourinary: No symptoms reported Musculoskeletal: See HPI Skin: No symptoms reported Neurological/Psychological: No symptoms reported Physical Exam - Vital signs Vitals: Temp Pulse Resp BP Pulse Ox 98.3 F 85 18 175/113 H 95 11/24/18 04:29 11/24/18 04:29 11/24/18 04:29 11/24/18 04:29 11/24/18 04:29 - Notes Notes: Vital signs reviewed, please refer to chart. Head is normocephalic, atraumatic. Pupils equal round, reactive to light. Neck is supple without meningismus. Heart is regular rate and rhythm. Lungs are clear to auscultation bilaterally. No obvious deformity to the chest wall. Patient is tender to palpation of the left anterior ribs, just lateral to the midclavicular line, ribs 9 through 12. No subcutaneous emphysema, chest wall excursion is equal bilaterally. Abdomen is soft, mildly tender in the left upper quadrant without rebound or guarding, normoactive bowel sounds throughout. Extremities without cyanosis, clubbing. Posterior calves are nontender. Peripheral pulses are equal. Skin is warm and dry. Patient is awake, alert, cooperative with examiner. Course - Re-evaluation Re-evalutation: 11/24/18 07:07 Patient presents emergency department for evaluation after a fall. On physical exam, he does have some significant chest wall tenderness to palpation. He has no subcutaneous emphysema, and lung sounds are clear. He does however, have some abdominal tenderness to palpation. Because of his renal function, I am unable to perform a contrasted scan. His renal function is near baseline. I sent him over for CT scan of the abdomen pelvis without contrast. We will continue to monitor. 11/24/18 08:50 Laboratory vesication's are largely unremarkable for anything acute. Patient CT scan revealed an nondisplaced rib fracture on the left. The patient Dale has an incentive spirometer at home. The importance of using that was stressed. I will send him home with a small amount of Percocet. We also discussed the side effect of constipation, drowsiness, dizziness. He is told to take a stool softener as he has had constipation issues in the past. He is to use extra caution with ambulation. He voiced understanding to this. He is to return to the emergency department with worsening or new concerning symptoms of any sort. - Vital Signs Vital signs: Temp Pulse Resp BP Pulse Ox 97.5 F 87 24 H 123/79 98 11/24/18 04:34 11/24/18 04:34 11/24/18 06:07 11/24/18 06:07 11/24/18 06:07 - Laboratory Result Diagrams: 11/24/18 05:20 11/24/18 05:20 Laboratory results interpreted by me: 11/24/18 11/24/18 05:20 05:20 RBC 3.35 L Hgb 9.7 L Hct 28.7 L RDW 14.3 H Eosinophils % 6.5 H BUN 40 H Creatinine 2.32 H Est GFR ( Amer) 34 L Est GFR (Non-Af Amer) 28 L Glucose 172 H - Diagnostic Test Radiology reviewed: Reports reviewed Radiology results interpreted by me: 11/24/18 08:50 Chest X-Ray 11/24/18 00:00 IMPRESSION: No acute findings by plain film. Posterior left lower rib fracture seen on CT is not apparent by plain film Abdomen/Pelvis CT 11/24/18 07:02 IMPRESSION: Nondisplaced left posterior lower rib fracture. - EKG Interpretation by Me Additional EKG results interpreted by me: 11/24/18 07:07 Sinus mechanism with a rate of 83 bpm. First-degree AV block. IVCD. Nonspecific ST changes, but no acute changes concerning for ischemia or infarction. No significant change in compared to prior study of October 06, 2018. Discharge - Discharge Clinical Impression: Left rib fracture Qualifiers: Encounter type: initial encounter Rib fracture type: single rib Fracture type: closed Qualified Code(s): S22.32XA - Fracture of one rib, left side, initial encounter for closed fracture Condition: Stable Disposition: HOME, SELF-CARE Instructions: Rib Injuries and Fractures ([facility]) Additional Instructions: Take pain medication as needed for severe pain. Please watch for dizziness, drowsiness, constipation with this medication. Use incentive spirometer as discussed to prevent pneumonia or other worsening. Follow-up with primary care this week. Return to the emergency department with worsening or new concerning symptoms of any sort.
--- NOTE | 2018-11-24 08:26 | RADIOLOGY REPORT (SQ) ---
EXAM DESCRIPTION: CHEST 2 VIEWS COMPLETED DATE/TIME: 11/24/2018 7:03 am REASON FOR STUDY: chest pain, left rib pain COMPARISON: Chest films 10/06/2017, 07/24/2018 EXAM PARAMETERS: NUMBER OF VIEWS: two views TECHNIQUE: Digital Frontal and Lateral radiographic views of the chest acquired. RADIATION DOSE: NA LIMITATIONS: none FINDINGS: LUNGS AND PLEURA: No opacities, masses or pneumothorax. No pleural effusion. MEDIASTINUM AND HILAR STRUCTURES: No masses or contour abnormalities. HEART AND VASCULAR STRUCTURES: Heart normal size. No evidence for failure. BONES: Posterior left lower rib fractures on lung windows of CT exam 11/24/2018 are not apparent by broderick in films. HARDWARE: None in the chest. OTHER: No other significant finding. IMPRESSION: No acute findings by plain film. Posterior left lower rib fracture seen on CT is not ap parent by plain film TECHNICAL DOCUMENTATION: JOB ID: [id number] [employer]- All Rights Reserved Reading location - IP/workstation name: [email or web address]
--- NOTE | 2018-11-24 08:31 | RADIOLOGY REPORT (SQ) ---
EXAM DESCRIPTION: CT ABD/PELVIS NO ORAL OR IV COMPLETED DATE/TIME: 11/24/2018 7:49 am REASON FOR STUDY: LUQ pain after fall COMPARISON: CT abdomen pelvis 10/08/2016, 01/14/2014 TECHNIQUE: CT scan of the abdomen and pelvis performed without intravenous or oral contrast. Images reviewed with lung, soft tissue, and bone windows. Reconstructed coronal and sagittal MPR images revi ewed. All images stored on PACS. All CT scanners at this facility use dose modulation, iterative reconstruction, and/or weight based d osing when appropriate to reduce radiation dose to as low as reasonably achievable (ALARA). [facility]: Dose Right [facility]: CareDose [facility]: Dose Right [facility]: Teradose 4D [facility]: [employer] RADIATION DOSE: CT Rad equipment meets quality standard of care and radiation dose reduction techniq ues were employed. CTDIvol: 17.1 mGy. DLP: 990 mGy-cm.mGy. LIMITATIONS: None. FINDINGS: LOWER CHEST: Nondisplaced left posterior lower rib fracture is present on axial image 27. Minimal adjacent basilar atelectasis. No pleural effusion. Normal-sized spleen. No gross splenic injury alone this non contrasted CT exam. Findings discussed with Dr. Schultz. NON-CONTRASTED LIVER, SPLEEN, ADRENALS: Evaluation limited by lack of IV contrast. No identified sign ificant masses. PANCREAS: No masses. No peripancreatic inflammatory changes. GALLBLADDER: No identified stones by CT criteria. No inflammatory changes to suggest cholecystitis. RIGHT KIDNEY AND URETER: No suspicious masses. Assessment limited by lack of IV contrast. No signif icant calcifications. No hydronephrosis or hydroureter. LEFT KIDNEY AND URETER: No suspicious masses. Assessment limited by lack of IV contrast. No signifi cant calcifications. No hydronephrosis or hydroureter. AORTA AND RETROPERITONEUM: No aneurysm. No retroperitoneal masses or adenopathy. BOWEL AND PERITONEAL CAVITY: No obvious masses or inflammatory changes. No free fluid. Colonic diver ticulosis without CT signs of acute diverticulitis APPENDIX: Normal. PELVIS, BLADDER, AND ABDOMINAL WALL:No abnormal masses. No free fluid. Bladder is moderately distend ed. Normal size prostate. BONES: Nondisplaced left posterior lower rib fracture . OTHER: No other significant finding. IMPRESSION: Nondisplaced left posterior lower rib fracture. COMMENT: Quality ID # [id number]: Final reports with documentation of one or more dose reduction techniques (e.g., Automated exposure control, adjustment of the mA and/or kV according to patient size, use of iterative reconstruction technique) TECHNICAL DOCUMENTATION: JOB ID: [id number] [employer]- All Rights Reserved Reading location - IP/workstation name: [email or web address]
[2018-11-24] MEDS ORDERED: OXYCODONE-ACETAMINOPHEN 5-325 MG TABLET PO ONE (08:45)
[2018-11-24 09:51] VITALS: BP 132/74
--- NOTE | 2018-11-25 07:52 | EKG REPORT ---
SEVERITY:- ABNORMAL ECG - SINUS RHYTHM WITH FIRST DEGREE AVB NONSPECIFIC INTRAVENTRICULAR CONDUCTION DELAY : Confirmed by: Yo Foss MD 25-Nov-2018 07:52:09
== END 2018-11-24 09:51 | disposition home or self-care (01) ==
LOC: ER 04:11
DX: R07.81 Pleurodynia (principal); S22.32XA Fracture of one rib, left side, initial encounter for closed fracture; I44.0 Atrioventricular block, first degree; W19.XXXA Unspecified fall, initial encounter; Y92.009 Unspecified place in unspecified non-institutional (private) residence as the place of occurrence of the external cause; F17.200 Nicotine dependence, unspecified, uncomplicated; I50.9 Heart failure, unspecified; I11.0 Hypertensive heart disease with heart failure; J44.9 Chronic obstructive pulmonary disease, unspecified
CPT/HCPCS: 93005; 99284; 36415; 82553; 82550; 85025; 80053; 84484; 83880; 71046; 74176; 93010; A9270 ×2

== ENCOUNTER 2019-01-13 14:56 | Observation (INO) | payer MEDICARE ==
--- NOTE | 2019-01-13 15:26 | ER Document Report ---
ED General - General Chief Complaint: Weakness Stated Complaint: WEAKNESS Time Seen by Provider: 01/13/19 15:06 TRAVEL OUTSIDE OF THE [place] IN LAST 30 DAYS: No - HPI Notes: Patient presents with progressive weakness from home. Home health called EMS due to patient's progressive weakness and inability to stand starting today. Patient does have history of residual sided weakness secondary to CVA. He de nies any pain anywhere in his body he is alert oriented. He does have mild slurred speech secondary to his previous CVA. He is at baseline per nursing staff is familiar with him. - Related Data Allergies/Adverse Reactions: Penicillins Allergy (Intermediate, Verified 11/24/18 04:29) swelling Past Medical History - Social History Smoking Status: Unknown if Ever Smoked Family History: Reviewed & Not Pertinent, CAD, DM, Malignancy Patient has suicidal ideation: No Patient has homicidal ideation: No - Past Medical History Cardiac Medical History: Reports: Hx Congestive Heart Failure - Chronic systolic, Hx Hypercholesterolemia, Hx Hypertension Denies: Hx Coronary Artery Disease, Hx Heart Attack Pulmonary Medical History: Reports: Hx COPD Denies: Hx Asthma, Hx Bronchitis, Hx Pneumonia, Hx Tuberculosis Neurological Medical History: Reports: Hx Cerebrovascular Accident, Hx Seizures Endocrine Medical History: Reports: Hx Diabetes Mellitus Type 1, Hx Diabetes Mellitus Type 2. Denies: Hx Hypothyroidism Renal/ Medical History: Reports: Hx Renal Insufficiency. Denies: Hx Peritoneal Dialysis GI Medical History: Reports: Hx Gastroesophageal Reflux Disease Musculoskeletal Medical History: Reports Hx Arthritis Psychiatric Medical History: Denies: Hx Depression Infectious Medical History: Reports: Hx MRSA Past Surgical History: Reports: Hx Internal Defibrillator - With removal, Hx Orthopedic Surgery. Denies: Hx Pacemaker - Immunizations Hx Diphtheria, Pertussis, Tetanus Vaccination: Yes Hx Pneumococcal Vaccination: 01/19/11 Review of Systems - Review of Systems Constitutional: See HPI EENT: No symptoms reported Cardiovascular: No symptoms reported Respiratory: No symptoms reported Gastrointestinal: No symptoms reported Genitourinary: No symptoms reported Male Genitourinary: No symptoms reported Musculoskeletal: No symptoms reported Skin: No symptoms reported Hematologic/Lymphatic: No symptoms reported Neurological/Psychological: No symptoms reported Physical Exam - Vital signs Vitals: Resp Pulse Ox 15 97 01/13/19 15:47 01/13/19 15:47 - General General appearance: Appears well, Alert - HEENT Head: Normocephalic Eyes: Normal Conjunctiva: Normal Cornea: Normal Pupils: PERRL - Respiratory Respiratory status: No respiratory distress Chest status: Nontender Breath sounds: Normal Chest palpation: Normal - Cardiovascular Rhythm: Regular Heart sounds: Normal auscultation Murmur: No - Abdominal Inspection: Normal Distension: No distension Bowel sounds: Normal Tenderness: Nontender - Back Back: Normal, Nontender - Extremities General upper extremity: Normal inspection General lower extremity: Normal inspection - Neurological Neuro grossly intact: Yes Cognition: Normal Course - Re-evaluation Re-evalutation: 01/13/19 16:52 Admit for UTI, generalized weakness - Vital Signs Vital signs: Temp Pulse Resp BP Pulse Ox 97.7 F 61 18 142/83 H 98 01/13/19 22:59 01/13/19 22:59 01/13/19 22:59 01/13/19 22:59 01/13/19 22:59 - Laboratory Result Diagrams: 01/13/19 15:15 01/13/19 19:04 Laboratory results interpreted by me: 01/13/19 01/13/19 01/13/19 15:15 15:15 15:49 RBC 3.14 L Hgb 9.3 L Hct 27.2 L RDW 14.2 H BUN 45 H Creatinine 2.69 H Est GFR ( Amer) 29 L Est GFR (MDRD) Non-Af 24 L Glucose 115 H Ur Leukocyte Esterase LARGE H 01/13/19 19:04 RBC Hgb Hct RDW BUN 45 H Creatinine 2.57 H Est GFR ( Amer) 30 L Est GFR (MDRD) Non-Af 25 L Glucose Ur Leukocyte Esterase - Diagnostic Test Radiology reviewed: Reports reviewed - EKG Interpretation by Me EKG shows normal: Sinus rhythm Rate: Normal Rhythm: NSR - Significant change from 11/24/2018 Discharge - Discharge Clinical Impression: Generalized weakness Urinary tract infection Qualifiers: Urinary tract infection type: site unspecified Hematuria presence: without hematuria Qualified Code(s): N39.0 - Urinary tract infection, site not specified Condition: Good Disposition: ADMITTED INPATIENT
[2019-01-13 15:31] LABS: PROTHROMBIN TIME 15.3 SEC (11.4-15.4)
[2019-01-13 15:32] LABS: ABSOLUTE EOSINOPHILS # (AUTO) 0.3 10^3/uL (0.0-0.6); ABSOLUTE LYMPHOCYTES (AUTO) 1.2 10^3/uL (0.5-4.7); ABSOLUTE MONOCYTES (AUTO) 0.4 10^3/uL (0.1-1.4); ABSOLUTE NEUT (AUTO) 3.6 10^3/uL (1.7-8.2); BASOPHILS % (AUTO) 0.9 % (0-2); EOSINOPHILS % (AUTO) 4.7 % (0-6); HEMATOCRIT 27.2 % (37.9-51.0); HEMOGLOBIN 9.3 g/dL (13.5-17.0); MEAN CORPUSCULAR HEMOGLOBIN 29.4 pg (27.0-33.4); MEAN CORPUSCULAR VOLUME 87 fl (80-97); MONOCYTES % (AUTO) 7.2 % (3-13); PLATELET COUNT 180 10^3/uL (150-450); RED BLOOD COUNT 3.14 10^6/uL (4.35-5.55); RED CELL DISTRIBUTION WIDTH 14.2 % (11.5-14.0); SEGMENTED NEUTROPHILS % (AUTO) 65.2 % (42-78); TOTAL CELLS COUNTED % (AUTO) 100 %; WHITE BLOOD COUNT 5.4 10^3/uL (4.0-10.5)
--- NOTE | 2019-01-13 15:40 | RADIOLOGY REPORT (SQ) ---
EXAM DESCRIPTION: CHEST SINGLE VIEW COMPLETED DATE/TIME: 01/13/2019 3:29 pm REASON FOR STUDY: weak COMPARISON: 11/24/2018 EXAM PARAMETERS: NUMBER OF VIEWS: One view. TECHNIQUE: Single frontal radiographic view of the chest acquired. RADIATION DOSE: NA LIMITATIONS: None. FINDINGS: LUNGS AND PLEURA: No opacities, masses or pneumothorax. No pleural effusion. MEDIASTINUM AND HILAR STRUCTURES: No masses. Contour normal. HEART AND VASCULAR STRUCTURES: Heart normal in size. Normal vasculature. BONES: No acute findings. HARDWARE: None in the chest. OTHER: No other significant finding. IMPRESSION: No evidence of acute cardiopulmonary process. TECHNICAL DOCUMENTATION: JOB ID: [id number] [employer]- All Rights Reserved Reading location - IP/workstation name: [email or web address]
[2019-01-13] MEDS ORDERED: NORMAL SALINE 500 ML IV ONE (15:45)
--- NOTE | 2019-01-13 15:51 | RADIOLOGY REPORT (SQ) ---
EXAM DESCRIPTION: CT HEAD WITHOUT COMPLETED DATE/TIME: 01/13/2019 3:35 pm REASON FOR STUDY: weak COMPARISON: 10/08/2018 and 07/02/2017. TECHNIQUE: Axial images acquired through the brain without intravenous contrast. Images reviewed wi th bone, brain and subdural windows. Additional sagittal and coronal reconstructions were generated. Images stored on PACS. All CT scanners at this facility use dose modulation, iterative reconstruction, and/or weight based d osing when appropriate to reduce radiation dose to as low as reasonably achievable (ALARA). [facility]: Dose Right [facility]: CareDose [facility]: Dose Right [facility]: Teradose 4D [facility]: Smart [employer] RADIATION DOSE: CT Rad equipment meets quality standard of care and radiation dose reduction techniq ues were employed. CTDIvol: 53.2 mGy. DLP: 1097 mGy-cm.mGy. LIMITATIONS: None. FINDINGS: VENTRICLES: Prominent. CEREBRUM: No masses. No hemorrhage. No midline shift. Areas of low density in the white matter mos t likely due to chronic micro-vascular ischemic change. Old infarct in the right occipital lobe, unc hanged. No evidence for acute infarction. CEREBELLUM: No masses. No hemorrhage. No alteration of density. No evidence for acute infarction. EXTRAAXIAL SPACES: Age-related involutional change. No fluid collections. No masses. ORBITS AND GLOBE: No intra- or extraconal masses. Normal contour of globe without masses. CALVARIUM: No fracture. PARANASAL SINUSES: No fluid or mucosal thickening. SOFT TISSUES: No mass or hematoma. OTHER: No other significant finding. IMPRESSION: CHRONIC CHANGES OF ATROPHY AND MICROVASCULAR ISCHEMIA. STABLE OLD INFARCT IN THE RIGHT OCCIPITAL LOBE. NO ACUTE PROCESS. EVIDENCE OF ACUTE STROKE: NO. TECHNICAL DOCUMENTATION: JOB ID: [id number] Quality ID # [id number]: Final reports with documentation of one or more dose reduction techniques (e.g., Au tomated exposure control, adjustment of the mA and/or kV according to patient size, use of iterative reconstruction technique) 2010 [employer]- All Rights Reserved Reading location - IP/workstation name: [email or web address]
[2019-01-13 15:53] LABS: ALBUMIN 3.7 g/dL (3.5-5.0); ALKALINE PHOSPHATASE 100 U/L (38-126); ANION GAP 8 (5-19); ASPARTATE AMINO TRANSFERASE 33 U/L (17-59); BILIRUBIN,DIRECT 0.2 mg/dL (0.0-0.4); BILIRUBIN,TOTAL 0.3 mg/dL (0.2-1.3); BLOOD UREA NITROGEN 45 mg/dL (7-20); CALCIUM 8.9 mg/dL (8.4-10.2); CARBON DIOXIDE 27 mmol/L (22-30); CHLORIDE 107 mmol/L (98-107); GLUCOSE 115 mg/dL (75-110); POTASSIUM 4.4 mmol/L (3.6-5.0); TOTAL PROTEIN 6.6 g/dL (6.3-8.2)
[2019-01-13 16:19] LABS: APPEARANCE,URINE CLOUDY; BILIRUBIN,URINE NEGATIVE (NEGATIVE); COLOR,URINE YELLOW; GLUCOSE, URINE NEGATIVE (NEGATIVE); KETONES,URINE NEGATIVE (NEGATIVE); LEUKOCYTE ESTERASE,URINE LARGE (NEGATIVE); NITRITE,URINE NEGATIVE (NEGATIVE); PROTEIN,URINE NEGATIVE (NEGATIVE); URINE SPECIFIC GRAVITY 1.009; UROBILINOGEN,URINE NEGATIVE mg/dL (<2.0)
[2019-01-13 16:25] LABS: URINE AMPHETAMINES SCREEN NEGATIVE; URINE BARBITURATES SCREEN NEGATIVE; URINE BENZODIAZEPINES SCREEN NEGATIVE; URINE COCAINE SCREEN NEGATIVE; URINE MARIJUANA (THC) SCREEN NEGATIVE; URINE METHADONE SCREEN NEGATIVE; URINE PHENCYCLIDINE SCREEN NEGATIVE
[2019-01-13] MEDS ORDERED: CEFTRIAXONE 1 GM/D5W RTU 1 GM/50 ML RTUPB IV ONE (17:30)
--- NOTE | 2019-01-13 18:16 | PDOC H&P ---
History of Present Illness Admission Date/PCP: ILANA MENDEZ DPM History of Present Illness: FLAG MORELIA THIBODEAUX is a 68 year old male past medical history of CHF, dyslipidemia, hypertension, COPD, CVA, seizures, diabetes, CKD, GERD, arthritis presenting to ED complaining of severe weakness. Patient is disabled due to CVA he sustained 8 years ago, he is severely dysarthric but lives at home by himself with the help of home health 6 times a week. At baseline patient is able to feed himself, ambulate with front wheeled walker and wheelchair, but needs assistance with cooking, cleaning. He makes his own medical and financial decisions. Has a wound on the left calcaneus which has been cared for by Dr. Fregoso his broke handler, has been told to use wheelchair instead of front wheeled walker until the foot wound is healed. For the last 3 days patient has been feeling extremely weak, to the point that he has not been able to feed himself, or get to his wheelchair, most of time he sits in his bed with his neck down due to weakness and now complaining of neck pain and back pain. He states he has a bowel movement every 3 days but this time he has not had one for the last 5 days. Patient is receiving home physical therapy and is very happy with it however when asked if he would be willing to be transitioned to rehab facility short- term he adamantly refuses to go to rehabs in [place]. Stating he was there for 9 months and he had very bad experience. Denies any fever, chills, chest pain,sob, nausea, vomiting, abdominal pain, diarrhea, dysuria, hesitancy, urgency or any discharge. In ED CT head showed chronic changes of atrophy and microvascular ischemia, stable old infarct in the right occipital lobe, no acute stroke. CBC and CMP unchanged from previous admissions his UA was positive for large leukocyte esterase with WBC of 146. Weakness was attributed to possible UTI and hospitalist was consulted for admission. Past Medical History Cardiac Medical History: Reports: Congestive Heart Failure - Chronic systolic, Hyperlipidema, Hypertension Denies: Coronary Artery Disease, Myocardial Infarction Pulmonary Medical History: Reports: Chronic Obstructive Pulmonary Disease (COPD) Denies: Asthma, Bronchitis, Pneumonia, Tuberculosis Neurological Medical History: Reports: Seizures Endocrine Medical History: Reports: Diabetes Mellitus Type 1, Diabetes Mellitus Type 2 Denies: Hypothyroidism GI Medical History: Reports: Gastroesophageal Reflux Disease Musculoskeltal Medical History: Reports: Arthritis Psychiatric Medical History: Denies: Depression Hematology: Reports: Anemia Infectious Medical History: Reports: Methicillin-Resistant Staph Aureus Past Surgical History Past Surgical History: Reports: Internal Defibrillator - With removal, Orthopedic Surgery Denies: Pacemaker Social History Smoking Status: Unknown if Ever Smoked Frequency of Alcohol Use: None Hx Recreational Drug Use: No Drugs: None Hx Prescription Drug Abuse: No Family History Family History: Reviewed & Not Pertinent, CAD, DM, Malignancy Parental Family History Reviewed: Yes Children Family History Reviewed: Yes Sibling(s) Family History Reviewed.: Yes Medication/Allergy Allergies/Adverse Reactions: Penicillins Allergy (Intermediate, Verified 11/24/18 04:29) swelling Review of Systems Review of Systems: as per hpi Physical Exam Vital Signs: Intake & Output 01/12/19 01/13/19 01/14/19 06:59 06:59 06:59 Intake Total 500 Balance 500 Weight 89.8 kg General appearance: PRESENT: no acute distress, well-developed, well-nourished Head exam: PRESENT: atraumatic, normocephalic Respiratory exam: PRESENT: clear to auscultation nathan. ABSENT: rales, rhonchi, wheezes Cardiovascular exam: PRESENT: RRR. ABSENT: diastolic murmur, rubs, systolic murmur GI/Abdominal exam: PRESENT: normal bowel sounds, soft. ABSENT: distended, guarding, mass, organolmegaly, rebound, tenderness Extremities exam: PRESENT: full ROM, other - Left calcaneal wound, dressing in place, no sign of discharge.. ABSENT: calf tenderness, clubbing, pedal edema Neurological exam: PRESENT: alert, awake, oriented to person, oriented to place, oriented to time, oriented to situation, CN II-XII grossly intact, aphasic, other - Severe dysarthria.. ABSENT: motor sensory deficit Skin exam: PRESENT: dry, intact, warm. ABSENT: cyanosis, rash Results Laboratory Results: 01/13/19 15:15 01/13/19 15:15 01/13/19 01/13/19 01/13/19 15:15 15:15 15:49 WBC 5.4 RBC 3.14 L Hgb 9.3 L Hct 27.2 L MCV 87 MCH 29.4 MCHC 34.0 RDW 14.2 H Plt Count 180 Seg Neutrophils % 65.2 Sodium 141.8 Potassium 4.4 Chloride 107 Carbon Dioxide 27 Anion Gap 8 BUN 45 H Creatinine 2.69 H Est GFR ( Amer) 29 L Glucose 115 H Calcium 8.9 Magnesium 2.3 Total Bilirubin 0.3 AST 33 Alkaline Phosphatase 100 Total Protein 6.6 Albumin 3.7 Urine Color YELLOW Urine Appearance CLOUDY Urine pH 6.0 Ur Specific [place] 1.009 Urine Protein NEGATIVE Urine Glucose (UA) NEGATIVE Urine Ketones NEGATIVE Urine Blood NEGATIVE Urine Nitrite NEGATIVE Ur Leukocyte Esterase LARGE H Urine WBC (Auto) 146 Urine RBC (Auto) 7 01/13/19 15:15 Troponin I 0.015 Impressions: Chest X-Ray 01/13/19 15:07 IMPRESSION: No evidence of acute cardiopulmonary process. Head CT 01/13/19 15:07 IMPRESSION: CHRONIC CHANGES OF ATROPHY AND MICROVASCULAR ISCHEMIA. STABLE OLD INFARCT IN THE RIGHT OCCIPITAL LOBE. NO ACUTE PROCESS. EVIDENCE OF ACUTE STROKE: NO. Assessment and Plan - Diagnosis (1) Generalized weakness Is this a current diagnosis for this admission?: Yes Plan: Due to underlying UTI. Treat underlying UTI, dietary consult, PT, OT, possible transition to short-term rehab (2) Urinary tract infection Qualifiers: Urinary tract infection type: site unspecified Hematuria presence: without hematuria Qualified Code(s): N39.0 - Urinary tract infection, site not specified Is this a current diagnosis for this admission?: Yes Plan: History of current UTI due to Pseudomonas, MRSA, E. coli and group B beta strep. Likely due to same organism as above. We will start on cefepime to cover Pseudomonas as well as E. coli and Bactrim to cover possible MRSA. Previous cultures have been positive for Pseudomonas resistant to levofloxacin. (3) COPD (chronic obstructive pulmonary disease) Is this a current diagnosis for this admission?: Yes Plan: Does not seem to be acutely exacerbated. Not on home oxygen. We will start on PRN DuoNeb's, antiemetics, LABA, ICS. Outpatient pulmonology follow-up. (4) Chronic systolic (congestive) heart failure Is this a current diagnosis for this admission?: Yes Plan: Chronic systolic heart failure. Likely due to untreated hypertension. Denies any history of CAD. Does not seem to be acutely exacerbated. We will start on cardiac diet, diuretics, beta-blockers (5) Hypertension Is this a current diagnosis for this admission?: Yes Plan: Monitor vitals. Restart home. Adjust meds as needed. (6) Pressure ulcer, heel, left, unstageable Is this a current diagnosis for this admission?: Yes Plan: Left calcaneus. Receives outpatient care by broke handler. Continue wound care. (7) Seizure disorder Is this a current diagnosis for this admission?: Yes Plan: Restart home meds. Seizure and fall precautions. Monitor and correct electrolytes. (8) Type 2 diabetes mellitus Qualifiers: Chronic kidney disease stage: stage 3 (moderate) Is this a current diagnosis for this admission?: Yes Plan: We will start on diabetic diet, sliding scale insulin, Accu-Chek, hypoglycemia protocol, long acting insulin, pre-meal insulin. Will get a new A1c.
[2019-01-13] MEDS ORDERED: ACETAMINOPHEN 325 MG TABLET PO PRN (18:21)
[2019-01-13] MEDS ORDERED: TEMAZEPAM 15 MG CAPSULE PO PRN (18:21)
[2019-01-13] MEDS ORDERED: OXYCODONE-ACETAMINOPHEN 5-325 MG TABLET PO PRN (18:21)
[2019-01-13] MEDS ORDERED: IPRATROPIUM/ALBUTEROL 0.5-2.5 MG/3 ML AMPUL NEB PRN (18:21)
[2019-01-13] MEDS ORDERED: ONDANSETRON HCL INJ/PF 4 MG/2 ML SDV IV PRN (18:21)
[2019-01-13] MEDS ORDERED: MAG HYDROX/AL HYDROX/SIMETH SUSP 30 ML UDCUP PO PRN (18:21)
[2019-01-13] MEDS ORDERED: RINGERS SOLUTION,LACTATED 1,000 ML IV PRN (18:21)
[2019-01-13] MEDS ORDERED: SULFAMETHOXAZOLE/TRIMETHOPRIM 800-160 MG TABLET PO SCH (19:00)
[2019-01-13] MEDS: DOCUSATE SODIUM 100 MG CAPSULE PO SCH (19:34)
[2019-01-13] MEDS: MAGNESIUM HYDROXIDE SUSP 30 ML UDCUP PO SCH (19:34)
[2019-01-13] MEDS: SULFAMETHOXAZOLE/TRIMETHOPRIM 800-160 MG TABLET PO SCH (19:35)
[2019-01-13 19:40] LABS: ANION GAP 9 (5-19); BLOOD UREA NITROGEN 45 mg/dL (7-20); CALCIUM 8.7 mg/dL (8.4-10.2); CARBON DIOXIDE 26 mmol/L (22-30); CHLORIDE 107 mmol/L (98-107); GLUCOSE 103 mg/dL (75-110); POTASSIUM 4.1 mmol/L (3.6-5.0)
[2019-01-13] MEDS: ATORVASTATIN CALCIUM 40 MG TABLET PO SCH (21:05)
[2019-01-13] MEDS: LEVETIRACETAM 500 MG TABLET PO SCH (21:05)
[2019-01-13] MEDS: CARVEDILOL 12.5 MG TABLET PO SCH (21:05)
[2019-01-13] MEDS: CEFEPIME 1 GM/D5W RTU 1 GM/50 ML RTUPB IV SCH (21:06)
[2019-01-14] MEDS: PANTOPRAZOLE SODIUM 40 MG TABLET.DR PO SCH ×2 (05:29→16:51)
[2019-01-14] MEDS: SULFAMETHOXAZOLE/TRIMETHOPRIM 800-160 MG TABLET PO SCH ×2 (05:29→18:52)
[2019-01-14 07:44] LABS: ABSOLUTE EOSINOPHILS # (AUTO) 0.3 10^3/uL (0.0-0.6); ABSOLUTE LYMPHOCYTES (AUTO) 1.2 10^3/uL (0.5-4.7); ABSOLUTE MONOCYTES (AUTO) 0.4 10^3/uL (0.1-1.4); ABSOLUTE NEUT (AUTO) 2.7 10^3/uL (1.7-8.2); BASOPHILS % (AUTO) 0.9 % (0-2); HEMOGLOBIN 8.2 g/dL (13.5-17.0); LYMPHOCYTES % (AUTO) 25.7 % (13-45); MEAN CORPUSCULAR HEMOGLOBIN 29.3 pg (27.0-33.4); MEAN CORPUSCULAR VOLUME 86 fl (80-97); MONOCYTES % (AUTO) 9.6 % (3-13); PLATELET COUNT 158 10^3/uL (150-450); RED BLOOD COUNT 2.79 10^6/uL (4.35-5.55); RED CELL DISTRIBUTION WIDTH 13.7 % (11.5-14.0); SEGMENTED NEUTROPHILS % (AUTO) 57.8 % (42-78); TOTAL CELLS COUNTED % (AUTO) 100 %; WHITE BLOOD COUNT 4.7 10^3/uL (4.0-10.5)
--- NOTE | 2019-01-14 09:18 | EKG REPORT ---
SEVERITY:- ABNORMAL ECG - SINUS RHYTHM FIRST DEGREE AV BLOCK : Confirmed by: Grace Baker 14-Jan-2019 09:16:52
[2019-01-14] MEDS: LEVETIRACETAM 500 MG TABLET PO SCH ×2 (10:18→22:52)
[2019-01-14] MEDS: MAGNESIUM HYDROXIDE SUSP 30 ML UDCUP PO SCH (10:18)
[2019-01-14] MEDS: CEFEPIME 1 GM/D5W RTU 1 GM/50 ML RTUPB IV SCH ×2 (10:19→22:52)
[2019-01-14] MEDS: CARVEDILOL 12.5 MG TABLET PO SCH ×2 (10:19→22:52)
[2019-01-14] MEDS: AMLODIPINE BESYLATE 5 MG TABLET PO SCH (10:19)
[2019-01-14] MEDS: CLOPIDOGREL BISULFATE 75 MG TABLET PO SCH (10:19)
[2019-01-14] MEDS: ENOXAPARIN SODIUM INJ 30 MG/0.3 ML DISP.SYRIN SUBCUT SCH ×2 (10:20→10:43)
[2019-01-14] MEDS: DOCUSATE SODIUM 100 MG CAPSULE PO SCH ×2 (10:21→18:52)
[2019-01-14] MEDS ORDERED: GLUCAGON,HUMAN RECOMB 1 MG INJ IM PRN (10:24)
[2019-01-14] MEDS ORDERED: DEXTROSE 50%-WATER 25 GM/50 ML DISP.SYRIN IV PRN ×2 (10:24)
[2019-01-14] MEDS ORDERED: DEXTROSE 40% GEL 15 GM TUBE PO PRN ×2 (10:24)
[2019-01-14] MEDS: CILOSTAZOL 100 MG TABLET PO SCH ×2 (10:35→16:51)
--- NOTE | 2019-01-14 11:42 | PDOC PROGRESS REPORT ---
Subjective Progress Note for:: 01/14/19 Subjective:: FLAG MORELIA THIBODEAUX is a 68 year old male past medical history of CHF, dyslipidemia, hypertension, COPD, CVA, seizures, diabetes, CKD, GERD, arthritis presenting to ED complaining of severe weakness. Patient is disabled due to CVA he sustained 8 years ago, he is severely dysarthric but lives at home by himself with the help of home health 6 times a week. At baseline patient is able to feed himself, ambulate with front wheeled walker and wheelchair, but needs assistance with cooking, cleaning. He makes his own medical and financial decisions. Has a wound on the left calcaneus which has been cared for by Dr. Fregoso his registered dental assistant rda, has been told to use wheelchair instead of front wheeled walker until the foot wound is healed. For the last 3 days patient has been feeling extremely weak, to the point that he has not been able to feed himself, or get to his wheelchair, most of time he sits in his bed with his neck down due to weakness and now complaining of neck pain and back pain. He states he has a bowel movement every 3 days but this time he has not had one for the last 5 days. Patient is receiving home physical therapy and is very happy with it however when asked if he would be willing to be transitioned to rehab facility short- term he adamantly refuses to go to rehabs in [place]. Stating he was there for 9 months and he had very bad experience. Denies any fever, chills, chest pain,sob, nausea, vomiting, abdominal pain, diarrhea, dysuria, hesitancy, urgency or any discharge. In ED CT head showed chronic changes of atrophy and microvascular ischemia, stable old infarct in the right occipital lobe, no acute stroke. CBC and CMP unchanged from previous admissions his UA was positive for large leukocyte esterase with WBC of 146. Weakness was attributed to possible UTI and hospitalist was consulted for admission. 01/14/2019. Significant improvement of his weakness, patient stating that he is able to lift his lower extremities, feed himself, able to sit up, which she could not do yesterday. Denies any fever, chills, nausea, vomiting, diarrhea, constipation or any urinary symptoms. Reason For Visit: UTI,WEAKNESS Physical Exam Vital Signs: Temp Pulse Resp BP Pulse Ox 97.8 F 60 16 122/64 98 01/14/19 08:20 01/14/19 08:49 01/14/19 08:49 01/14/19 08:20 01/14/19 08:49 Intake & Output 01/13/19 01/14/19 01/15/19 06:59 06:59 06:59 Intake Total 940 Output Total 500 Balance 440 Weight 81.5 kg General appearance: PRESENT: no acute distress, well-developed, well-nourished Respiratory exam: PRESENT: clear to auscultation nathan. ABSENT: rales, rhonchi, wheezes Cardiovascular exam: PRESENT: RRR. ABSENT: diastolic murmur, rubs, systolic murmur GI/Abdominal exam: PRESENT: normal bowel sounds, soft. ABSENT: distended, guarding, mass, organolmegaly, rebound, tenderness Neurological exam: PRESENT: alert, awake, oriented to person, oriented to place, oriented to time, oriented to situation, CN II-XII grossly intact Results Laboratory Results: 01/14/19 07:32 01/13/19 19:04 01/13/19 01/13/19 01/13/19 15:15 15:15 15:49 WBC 5.4 RBC 3.14 L Hgb 9.3 L Hct 27.2 L MCV 87 MCH 29.4 MCHC 34.0 RDW 14.2 H Plt Count 180 Seg Neutrophils % 65.2 Sodium 141.8 Potassium 4.4 Chloride 107 Carbon Dioxide 27 Anion Gap 8 BUN 45 H Creatinine 2.69 H Est GFR ( Amer) 29 L Glucose 115 H Calcium 8.9 Magnesium 2.3 Total Bilirubin 0.3 AST 33 Alkaline Phosphatase 100 Total Protein 6.6 Albumin 3.7 TSH Urine Color YELLOW Urine Appearance CLOUDY Urine pH 6.0 Ur Specific [place] 1.009 Urine Protein NEGATIVE Urine Glucose (UA) NEGATIVE Urine Ketones NEGATIVE Urine Blood NEGATIVE Urine Nitrite NEGATIVE Ur Leukocyte Esterase LARGE H Urine WBC (Auto) 146 Urine RBC (Auto) 7 01/13/19 01/13/19 01/14/19 19:04 19:04 07:32 WBC 4.7 RBC 2.79 L Hgb 8.2 L Hct 24.0 L MCV 86 MCH 29.3 MCHC 34.0 RDW 13.7 Plt Count 158 Seg Neutrophils % 57.8 Sodium 141.6 Potassium 4.1 Chloride 107 Carbon Dioxide 26 Anion Gap 9 BUN 45 H Creatinine 2.57 H Est GFR ( Amer) 30 L Glucose 103 Calcium 8.7 Magnesium Total Bilirubin AST Alkaline Phosphatase Total Protein Albumin TSH 0.72 Urine Color Urine Appearance Urine pH Ur Specific [place] Urine Protein Urine Glucose (UA) Urine Ketones Urine Blood Urine Nitrite Ur Leukocyte Esterase Urine WBC (Auto) Urine RBC (Auto) 01/14/19 07:32 WBC RBC Hgb Hct MCV MCH MCHC RDW Plt Count Seg Neutrophils % Sodium Potassium Chloride Carbon Dioxide Anion Gap BUN Creatinine Est GFR ( Amer) Glucose Calcium Magnesium 2.4 H Total Bilirubin AST Alkaline Phosphatase Total Protein Albumin TSH Urine Color Urine Appearance Urine pH Ur Specific [place] Urine Protein Urine Glucose (UA) Urine Ketones Urine Blood Urine Nitrite Ur Leukocyte Esterase Urine WBC (Auto) Urine RBC (Auto) 01/13/19 15:15 Troponin I 0.015 Impressions: Chest X-Ray 01/13/19 15:07 IMPRESSION: No evidence of acute cardiopulmonary process. Head CT 01/13/19 15:07 IMPRESSION: CHRONIC CHANGES OF ATROPHY AND MICROVASCULAR ISCHEMIA. STABLE OLD INFARCT IN THE RIGHT OCCIPITAL LOBE. NO ACUTE PROCESS. EVIDENCE OF ACUTE STROKE: NO. Assessment and Plan - Diagnosis (1) Generalized weakness Is this a current diagnosis for this admission?: Yes Plan: Significant improvement. This was likely due to underlying UTI. Treat underlying UTI, dietary consult, PT, OT, possible transition to short-term rehab (2) Urinary tract infection Qualifiers: Urinary tract infection type: site unspecified Hematuria presence: without hematuria Qualified Code(s): N39.0 - Urinary tract infection, site not specified Is this a current diagnosis for this admission?: Yes Plan: History of recurrent UTI due to Pseudomonas, MRSA, E. coli and group B beta strep. Likely due to same organism as above. Previous cultures have been positive for Pseudomonas resistant to levofloxacin. Received 1 dose of ceftriaxone in ED. Started on on cefepime to cover Pseudomonas as well as E. coli and Bactrim to cover possible MRSA. Day 2 of antibiotics. Day 2 IV cefepime. Day 2 p.o. Bactrim. Continue empiric antibiotics, follow urine culture. (3) COPD (chronic obstructive pulmonary disease) Is this a current diagnosis for this admission?: Yes Plan: Does not seem to be acutely exacerbated. Not on home oxygen. We will start on PRN DuoNeb's, antiemetics, LABA, ICS. Outpatient pulmonology follow-up. (4) Chronic systolic (congestive) heart failure Is this a current diagnosis for this admission?: Yes Plan: Chronic systolic heart failure. Likely due to untreated hypertension. Denies any history of CAD. Does not seem to be acutely exacerbated. We will start on cardiac diet, diuretics, beta-blockers (5) Hypertension Is this a current diagnosis for this admission?: Yes Plan: Euvolemic normotensive. Monitor vitals. Restart home. Adjust meds as needed. (6) Pressure ulcer, heel, left, unstageable Is this a current diagnosis for this admission?: Yes Plan: Left calcaneus. Receives outpatient care by registered dental assistant rda. Continue wound care. (7) Seizure disorder Is this a current diagnosis for this admission?: Yes Plan: Restart home meds. Seizure and fall precautions. Monitor and correct electrolytes. (8) Type 2 diabetes mellitus Qualifiers: Chronic kidney disease stage: stage 3 (moderate) Is this a current diagnosis for this admission?: Yes Plan: We will start on diabetic diet, sliding scale insulin, Accu-Chek, hypoglycemia protocol, long acting insulin, pre-meal insulin. Will get a new A1c.
[2019-01-14] MEDS: INSULIN LISPRO 100 UNIT/ML 3 ML VIAL SUBCUT SCH ×3 (12:18→22:52)
[2019-01-14 19:19] LABS: ANION GAP 10 (5-19); BLOOD UREA NITROGEN 39 mg/dL (7-20); CALCIUM 8.9 mg/dL (8.4-10.2); CARBON DIOXIDE 25 mmol/L (22-30); CHLORIDE 106 mmol/L (98-107); GLUCOSE 129 mg/dL (75-110); POTASSIUM 4.7 mmol/L (3.6-5.0)
[2019-01-14] MEDS: ATORVASTATIN CALCIUM 40 MG TABLET PO SCH (22:52)
[2019-01-15 04:53] LABS: ABSOLUTE EOSINOPHILS # (AUTO) 0.3 10^3/uL (0.0-0.6); ABSOLUTE MONOCYTES (AUTO) 0.5 10^3/uL (0.1-1.4); BASOPHILS % (AUTO) 0.9 % (0-2); EOSINOPHILS % (AUTO) 6.7 % (0-6); HEMATOCRIT 22.7 % (37.9-51.0); LYMPHOCYTES % (AUTO) 21.1 % (13-45); MEAN CORPUSCULAR HEMOGLOBIN 29.6 pg (27.0-33.4); MEAN CORPUSCULAR HGB CONC 34.4 g/dL (32.0-36.0); MEAN CORPUSCULAR VOLUME 86 fl (80-97); MONOCYTES % (AUTO) 9.9 % (3-13); PLATELET COUNT 159 10^3/uL (150-450); RED BLOOD COUNT 2.64 10^6/uL (4.35-5.55); RED CELL DISTRIBUTION WIDTH 13.8 % (11.5-14.0); SEGMENTED NEUTROPHILS % (AUTO) 61.4 % (42-78); TOTAL CELLS COUNTED % (AUTO) 100 %; WHITE BLOOD COUNT 4.9 10^3/uL (4.0-10.5)
[2019-01-15 04:55] LABS: HEMOGLOBIN 7.8 g/dL (13.5-17.0)
[2019-01-15 05:12] LABS: ANION GAP 7 (5-19); BLOOD UREA NITROGEN 36 mg/dL (7-20); CALCIUM 8.6 mg/dL (8.4-10.2); CARBON DIOXIDE 27 mmol/L (22-30); CHLORIDE 108 mmol/L (98-107); GLUCOSE 105 mg/dL (75-110); POTASSIUM 4.3 mmol/L (3.6-5.0)
[2019-01-15] MEDS: PANTOPRAZOLE SODIUM 40 MG TABLET.DR PO SCH (06:14)
[2019-01-15] MEDS: SULFAMETHOXAZOLE/TRIMETHOPRIM 800-160 MG TABLET PO SCH (06:14)
[2019-01-15] MEDS: INSULIN LISPRO 100 UNIT/ML 3 ML VIAL SUBCUT SCH ×2 (07:49→11:38)
[2019-01-15 08:06] LABS: ABSOLUTE RETICS # 0.025 10^6/uL (0.028-0.122); RETICULOCYTE COUNT (AUTO) 0.94 % (0.66-2.85)
[2019-01-15 08:28] LABS: IRON(TIBC) 51.9 ug/dL (49-181)
[2019-01-15] MEDS ORDERED: FERRIC CARBOXYMALTOSE INJ 750 MG/15 ML VIAL IV ONE (08:30)
[2019-01-15 09:43] LABS: FOLATE > 20.00 ng/mL (>2.76)
[2019-01-15] MEDS ORDERED: FERRIC CARBOXYMALTOSE 750 MG in NORMAL SALINE 250 ML IV ONE (10:00)
[2019-01-15] MEDS: CLOPIDOGREL BISULFATE 75 MG TABLET PO SCH (10:12)
[2019-01-15] MEDS: LEVETIRACETAM 500 MG TABLET PO SCH (10:12)
[2019-01-15] MEDS: AMLODIPINE BESYLATE 5 MG TABLET PO SCH (10:12)
[2019-01-15] MEDS: DOCUSATE SODIUM 100 MG CAPSULE PO SCH (10:13)
[2019-01-15] MEDS: MAGNESIUM HYDROXIDE SUSP 30 ML UDCUP PO SCH (10:13)
[2019-01-15] MEDS: CARVEDILOL 12.5 MG TABLET PO SCH (10:13)
[2019-01-15] MEDS: ENOXAPARIN SODIUM INJ 30 MG/0.3 ML DISP.SYRIN SUBCUT SCH (10:13)
[2019-01-15] MEDS: CEFEPIME 1 GM/D5W RTU 1 GM/50 ML RTUPB IV SCH (10:14)
[2019-01-15] MEDS: CILOSTAZOL 100 MG TABLET PO SCH (10:24)
[2019-01-15 11:54] VITALS: BP 139/72
--- NOTE | 2019-01-21 11:19 | PDOC DISCHARGE SUMMARY ---
Impression - Admit/DC Date/PCP Admission Date/Primary Care Provider: 01/13/19 19:21 ILANA MENDEZ DPM Discharge Date: 01/15/19 - Discharge Diagnosis (1) Generalized weakness Is this a current diagnosis for this admission?: Yes (2) Urinary tract infection Is this a current diagnosis for this admission?: Yes (3) COPD (chronic obstructive pulmonary disease) Is this a current diagnosis for this admission?: Yes (4) Chronic systolic (congestive) heart failure Is this a current diagnosis for this admission?: Yes (5) Hypertension Is this a current diagnosis for this admission?: Yes (6) Pressure ulcer, heel, left, unstageable Is this a current diagnosis for this admission?: Yes (7) Seizure disorder Is this a current diagnosis for this admission?: Yes (8) Type 2 diabetes mellitus Is this a current diagnosis for this admission?: Yes - Additional Information Resuscitation Status: Full Code Discharge Diet: Diabetic Discharge Activity: Activity As Tolerated Referrals: ALTAGRACIA JIANG MD [NO LOCAL MD] - (LEFT MESSAGE ABOUT APPOINTMENT) Home Medications: Aspirin [Ecotrin 81 mg EC Tablet] 81 mg PO DAILY 01/13/19 Atorvastatin Calcium [Lipitor 80 mg Tablet] 80 mg PO QHS 01/13/19 Carvedilol [Coreg 25 mg Tablet] 25 mg PO Q12 01/13/19 Cilostazol [Pletal 100 mg Tablet] 100 mg PO BID 01/13/19 Clopidogrel Bisulfate [Plavix 75 mg Tablet] 75 mg PO DAILY 01/13/19 Ferrous Sulfate [Feosol 325 mg Tablet] 325 mg PO DAILY 01/13/19 Furosemide [Lasix 40 mg Tablet] 40 mg PO BID 01/13/19 Insulin Aspart [Novolog Insulin (Aspart) 100 unit/mL] 0 unit SQ .SLIDING SCALE 01/13/19 Insulin Glargine,Hum.rec.anlog [Basaglar Kwikpen U-100] 15 unit SQ DAILY 01/13/19 Levetiracetam [Keppra 500 mg Tablet] 500 mg PO Q12 01/13/19 Multivitamin [Tab-A-Alyce (Multiple Vitamin) Tablet] 1 tab PO DAILY 01/13/19 Sacubitril/Valsartan [Entresto 49 mg/51 mg Tablet] 1 tab PO Q12 01/13/19 History of Present Illiness History of Present Illness: FLAG MORELIA JR is a 68 year old male past medical history of CHF, dyslipidemia, hypertension, COPD, CVA, seizures, diabetes, CKD, GERD, arthritis presenting to ED complaining of severe weakness. Patient is disabled due to CVA he sustained 8 years ago, he is severely dysarthric but lives at home by himself with the help of home health 6 times a week. At baseline patient is able to feed himself, ambulate with front wheeled walker and wheelchair, but needs assistance with cooking, cleaning. He makes his own medical and financial decisions. Has a wound on the left calcaneus which has been cared for by Dr. Fregoso his associate embalmer/funeral director, has been told to use wheelchair instead of front wheeled walker until the foot wound is healed. For the last 3 days patient has been feeling extremely weak, to the point that he has not been able to feed himself, or get to his wheelchair, most of time he sits in his bed with his neck down due to weakness and now complaining of neck pain and back pain. He states he has a bowel movement every 3 days but this time he has not had one for the last 5 days. Patient is receiving home physical therapy and is very happy with it however when asked if he would be willing to be transitioned to rehab facility short- term he adamantly refuses to go to rehabs in [place]. Stating he was there for 9 months and he had very bad experience. Denies any fever, chills, chest pain,sob, nausea, vomiting, abdominal pain, diarrhea, dysuria, hesitancy, urgency or any discharge. In ED CT head showed chronic changes of atrophy and microvascular ischemia, stable old infarct in the right occipital lobe, no acute stroke. CBC and CMP unchanged from previous admissions his UA was positive for large leukocyte esterase with WBC of 146. Weakness was attributed to possible UTI and hospitalist was consulted for admission. Hospital Course Hospital Course: (1) Generalized weakness Back to baseline. Significant improvement. This was likely due to underlying UTI. Treated underlying UTI, dietary consult, PT, OT, possible transition to short- term rehab Pt refused to be discharged to rehabe. Receives home Pt and has home HH Continue home health and home pt upon discharge. 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 coli and group B beta strep. Likely due to same organism as above. Previous cultures have been positive for Pseudomonas resistant to levofloxacin. Received 1 dose of ceftriaxone in ED. Started on on cefepime to cover Pseudomonas as well as E. coli and Bactrim to cover possible MRSA. Received 3 days antibiotics. Received 3 days of IV cefepime. Received 3 days p.o. Bactrim. Cultures positive for Corynebacterium. Continue empiric antibiotics, follow urine culture. (3) COPD (chronic obstructive pulmonary disease) Did not seem to be acutely exacerbated. Not on home oxygen. Started on PRN DuoNeb's, antiemetics, LABA, ICS. Outpatient pulmonology follow-up. (4) Chronic systolic (congestive) heart failure Chronic systolic heart failure. Likely due to untreated hypertension. Denies any history of CAD. Did not seem to be acutely exacerbated. Was started on cardiac diet, diuretics, beta-blockers (5) Hypertension Euvolemic normotensive. Monitored vitals. Restarted home. (6) Pressure ulcer, heel, left, unstageable Continued wound care. Receives outpatient care by associate embalmer/funeral director. Out patient associate embalmer/funeral director and wound clinic follow up. (7) Seizure disorder Restarted home meds. Seizure and fall precautions. Monitored and correct electrolytes. (8) Type 2 diabetes mellitus Started on diabetic diet, sliding scale insulin, Accu-Chek, hypoglycemia protocol, long acting insulin, pre-meal insulin. A1c 6.7. Restarted home meds upon discharge. Physical Exam Vital Signs: Temp Pulse Resp BP Pulse Ox 98.3 F 69 16 139/72 H 96 01/15/19 13:34 01/15/19 13:34 01/15/19 13:34 01/15/19 13:34 01/15/19 13:34 General appearance: PRESENT: no acute distress, well-developed, well-nourished Head exam: PRESENT: atraumatic, normocephalic Neck exam: ABSENT: carotid bruit, JVD, lymphadenopathy, thyromegaly Respiratory exam: PRESENT: clear to auscultation nathan. ABSENT: rales, rhonchi, wheezes Cardiovascular exam: PRESENT: RRR. ABSENT: diastolic murmur, rubs, systolic murmur Pulses: PRESENT: normal dorsalis pedis pul GI/Abdominal exam: PRESENT: normal bowel sounds, soft. ABSENT: distended, guarding, mass, organolmegaly, rebound, tenderness Neurological exam: PRESENT: alert, awake, oriented to person, oriented to place, oriented to time, oriented to situation, CN II-XII grossly intact, other - dysarthria. ABSENT: motor sensory deficit Results Laboratory Results: WBC 4.9 10^3/uL (4.0-10.5) 01/15/19 03:54 RBC 2.64 10^6/uL (4.35-5.55) L 01/15/19 03:54 Hgb 7.8 g/dL (13.5-17.0) L 01/15/19 03:54 Hct 22.7 % (37.9-51.0) L 01/15/19 03:54 MCV 86 fl (80-97) 01/15/19 03:54 MCH 29.6 pg (27.0-33.4) 01/15/19 03:54 MCHC 34.4 g/dL (32.0-36.0) 01/15/19 03:54 RDW 13.8 % (11.5-14.0) 01/15/19 03:54 Plt Count 159 10^3/uL (150-450) 01/15/19 03:54 Lymph % (Auto) 21.1 % (13-45) 01/15/19 03:54 [place] % (Auto) 9.9 % (3-13) 01/15/19 03:54 Eos % (Auto) 6.7 % (0-6) H 01/15/19 03:54 Baso % (Auto) 0.9 % (0-2) 01/15/19 03:54 Reticulocyte # 0.025 10^6/uL (0.028-0.122) L 01/15/19 03:54 Absolute Neuts (auto) 3.0 10^3/uL (1.7-8.2) 01/15/19 03:54 Absolute Lymphs (auto) 1.0 10^3/uL (0.5-4.7) 01/15/19 03:54 Absolute Monos (auto) 0.5 10^3/uL (0.1-1.4) 01/15/19 03:54 Absolute Eos (auto) 0.3 10^3/uL (0.0-0.6) 01/15/19 03:54 Absolute Basos (auto) 0.0 10^3/uL (0.0-0.2) 01/15/19 03:54 Seg Neutrophils % 61.4 % (42-78) 01/15/19 03:54 Retic Count (auto) 0.94 % (0.66-2.85) 01/15/19 03:54 PT 15.3 SEC (11.4-15.4) 01/13/19 15:15 INR 1.20 01/13/19 15:15 Sodium 141.8 mmol/L (137-145) 01/15/19 03:54 Potassium 4.3 mmol/L (3.6-5.0) 01/15/19 03:54 Chloride 108 mmol/L (98-107) H 01/15/19 03:54 Carbon Dioxide 27 mmol/L (22-30) 01/15/19 03:54 Anion Gap 7 (5-19) 01/15/19 03:54 BUN 36 mg/dL (7-20) H 01/15/19 03:54 Creatinine 2.47 mg/dL (0.52-1.25) H 01/15/19 03:54 Est GFR ( Amer) 32 (>60) L 01/15/19 03:54 Est GFR (MDRD) Non-Af 26 (>60) L 01/15/19 03:54 Glucose 105 mg/dL (75-110) 01/15/19 03:54 POC Glucose 244 mg/dL (70-110) H 01/15/19 11:18 Hemoglobin A1c % 6.7 % (4.7-6.0) H 01/14/19 07:32 Calcium 8.6 mg/dL (8.4-10.2) 01/15/19 03:54 Magnesium 2.4 mg/dL (1.6-2.3) H 01/15/19 03:54 Iron 51.9 ug/dL (49-181) 01/15/19 03:54 TIBC 225 ug/dL (250-450) L 01/15/19 03:54 % Saturation 23 % 01/15/19 03:54 Ferritin 35.20 ng/mL (17.9-464.0) 01/15/19 03:54 Total Bilirubin 0.3 mg/dL (0.2-1.3) 01/13/19 15:15 Direct Bilirubin 0.2 mg/dL (0.0-0.4) 01/13/19 15:15 Neonat Total Bilirubin Not Reportable 01/13/19 15:15 Neonat Direct Bilirubin Not Reportable 01/13/19 15:15 Neonat Indirect Bili Not Reportable 01/13/19 15:15 AST 33 U/L (17-59) 01/13/19 15:15 ALT 18 U/L (<50) 01/13/19 15:15 Alkaline Phosphatase 100 U/L (38-126) 01/13/19 15:15 Troponin I 0.015 ng/mL 01/13/19 15:15 Total Protein 6.6 g/dL (6.3-8.2) 01/13/19 15:15 Albumin 3.7 g/dL (3.5-5.0) 01/13/19 15:15 Vitamin B12 744.0 pg/mL (239-931) 01/15/19 03:54 Folate > 20.00 ng/mL (>2.76) 01/15/19 03:54 TSH 0.72 uIU/mL (0.47-4.68) 01/13/19 19:04 Urine Color YELLOW 01/13/19 15:49 Urine Appearance CLOUDY 01/13/19 15:49 Urine pH 6.0 (5.0-9.0) 01/13/19 15:49 Ur Specific [place] 1.009 01/13/19 15:49 Urine Protein NEGATIVE mg/dL (NEGATIVE) 01/13/19 15:49 Urine Glucose (UA) NEGATIVE mg/dL (NEGATIVE) 01/13/19 15:49 Urine Ketones NEGATIVE mg/dL (NEGATIVE) 01/13/19 15:49 Urine Blood NEGATIVE (NEGATIVE) 01/13/19 15:49 Urine Nitrite NEGATIVE (NEGATIVE) 01/13/19 15:49 Urine Bilirubin NEGATIVE (NEGATIVE) 01/13/19 15:49 Urine Urobilinogen NEGATIVE mg/dL (<2.0) 01/13/19 15:49 Ur Leukocyte Esterase LARGE (NEGATIVE) H 01/13/19 15:49 Urine WBC (Auto) 146 /HPF 01/13/19 15:49 Urine RBC (Auto) 7 /HPF 01/13/19 15:49 U Hyaline Cast (Auto) 14 /LPF 01/13/19 15:49 Urine Bacteria (Auto) TRACE /HPF 01/13/19 15:49 Urine WBC Clumps MOD /HPF 01/13/19 15:49 Squamous Epi Cells Auto 1 /HPF 01/13/19 15:49 Urine Mucus (Auto) RARE /LPF 01/13/19 15:49 Urine Yeast (Budding) PRESENT /HPF 01/13/19 15:49 Urine Ascorbic Acid NEGATIVE (NEGATIVE) 01/13/19 15:49 Urine Opiates Screen NEGATIVE 01/13/19 15:49 Urine Methadone Screen NEGATIVE 01/13/19 15:49 Ur Barbiturates Screen NEGATIVE 01/13/19 15:49 Ur Phencyclidine Scrn NEGATIVE 01/13/19 15:49 Ur Amphetamines Screen NEGATIVE 01/13/19 15:49 U Benzodiazepines Scrn NEGATIVE 01/13/19 15:49 Urine Cocaine Screen NEGATIVE 01/13/19 15:49 U Marijuana (THC) Screen NEGATIVE 01/13/19 15:49 01/13/19 15:15 Troponin I 0.015 Impressions: Chest X-Ray 01/13/19 15:07 IMPRESSION: No evidence of acute cardiopulmonary process. Head CT 01/13/19 15:07 IMPRESSION: CHRONIC CHANGES OF ATROPHY AND MICROVASCULAR ISCHEMIA. STABLE OLD INFARCT IN THE RIGHT OCCIPITAL LOBE. NO ACUTE PROCESS. EVIDENCE OF ACUTE STROKE: NO. Stroke Is this a Stroke Patient?: No Acute Heart Failure - Is this a Heart Failure Patient?: No
== END 2019-01-15 14:11 | disposition home health service (06) ==
LOC: ER 14:56 → EH 19:21 → 4S 22:50
PROVIDERS: ADMIT Internal Medicine; ATTEND Internal Medicine
DX: R53.1 Weakness (principal); N39.0 Urinary tract infection, site not specified; I11.0 Hypertensive heart disease with heart failure; I50.22 Chronic systolic (congestive) heart failure; J44.9 Chronic obstructive pulmonary disease, unspecified; L89.620 Pressure ulcer of left heel, unstageable; G40.909 Epilepsy, unspecified, not intractable, without status epilepticus; E11.22 Type 2 diabetes mellitus with diabetic chronic kidney disease; I13.0 Hypertensive heart and chronic kidney disease with heart failure and stage 1 through stage 4 chronic kidney disease, or unspecified chronic kidney disease; N18.3 Chronic kidney disease, stage 3 (moderate); I69.322 Dysarthria following cerebral infarction; M19.90 Unspecified osteoarthritis, unspecified site; E78.5 Hyperlipidemia, unspecified; M54.2 Cervicalgia; M54.9 Dorsalgia, unspecified; Z79.4 Long term (current) use of insulin; Z60.2 Problems related to living alone; Z79.82 Long term (current) use of aspirin; Z79.899 Other long term (current) drug therapy; Z87.440 Personal history of urinary (tract) infections; Z86.14 Personal history of Methicillin resistant Staphylococcus aureus infection; Z79.02 Long term (current) use of antithrombotics/antiplatelets; Z82.49 Family history of ischemic heart disease and other diseases of the circulatory system; Z88.0 Allergy status to penicillin
CPT/HCPCS: 93005; 99285; 96365; 36415 ×3; 87040; 82962 ×2; 82607; 82728; 82746; 83540; 83550; 83735 ×3; 84443; 85025 ×3; 85610; 87077; 85045; 80048; 80053; 81001; 84484; 80307; 83036; 71045; 70450; 93010; 97530; 97163; 97165; G0378 ×4; A9270 ×20; J3490 ×5; J1650; J7050; J7040; J7120; J0696; J0692 ×3; J1439; J1815

== ENCOUNTER → 2019-01-19 | Outpatient (CLI) | payer MEDICAID, MEDICARE ==
[2019-01-19 12:23] LABS: HEMATOCRIT 24.9 % (37.9-51.0); HEMOGLOBIN 8.6 g/dL (13.5-17.0); MEAN CORPUSCULAR HEMOGLOBIN 29.7 pg (27.0-33.4); MEAN CORPUSCULAR HGB CONC 34.4 g/dL (32.0-36.0); MEAN CORPUSCULAR VOLUME 86 fl (80-97); PLATELET COUNT 168 10^3/uL (150-450); RED BLOOD COUNT 2.89 10^6/uL (4.35-5.55); RED CELL DISTRIBUTION WIDTH 14.1 % (11.5-14.0); WHITE BLOOD COUNT 5.6 10^3/uL (4.0-10.5)
[2019-01-19 12:48] LABS: ANION GAP 10 (5-19); BLOOD UREA NITROGEN 42 mg/dL (7-20); CALCIUM 8.9 mg/dL (8.4-10.2); CARBON DIOXIDE 25 mmol/L (22-30); CHLORIDE 107 mmol/L (98-107); GLUCOSE 97 mg/dL (75-110); IRON(TIBC) 173.1 ug/dL (49-181); PHOSPHORUS 3.7 mg/dL (2.5-4.5); POTASSIUM 4.3 mmol/L (3.6-5.0)
[2019-01-19 12:55] LABS: APPEARANCE,URINE CLOUDY; BILIRUBIN,URINE NEGATIVE (NEGATIVE); COLOR,URINE YELLOW; GLUCOSE, URINE NEGATIVE (NEGATIVE); KETONES,URINE NEGATIVE (NEGATIVE); LEUKOCYTE ESTERASE,URINE LARGE (NEGATIVE); NITRITE,URINE NEGATIVE (NEGATIVE); PROTEIN,URINE NEGATIVE (NEGATIVE); UROBILINOGEN,URINE NEGATIVE mg/dL (<2.0)
--- NOTE | 2019-01-20 16:38 | XCELERA REPORT ---
[address] [address] Lower Extremity Arterial Evaluation Name: MORELIA THIBODEAUXFLAG JR Age: 68 yrs Gender: Male : 1950 Patient Status: Outpatient Patient Location: Study Date: 01/19/2019 11:18 AM Procedure: A color flow and duplex scan of the lower extremity arteries was performed bilaterally with velocity and waveform anaylsis. Ankle brachial indicies performed. Reason For Study: LT FOOT ULCER Ordering Physician: ILANA MENDEZ Performed By: Kelvin López Measurements and Calculations Right Left OBSERVATORY DIRECTOR PSV 108.7 92.6 cm/sec Prox PFA PSV -137.6 -58.7 cm/sec Prox SFA PSV 65.9 61.8 cm/sec Mid SFA PSV -83.0 -81.1 cm/sec Dist SFA PSV -62.9 -55.5 cm/sec Prox Pop A PSV 64.2 64.6 cm/sec Dist [place] PSV 126.5 119.7 cm/sec Prox ASSOCIATE PROFESSOR OF LITERACY PSV 28.1 cm/sec Mid ASSOCIATE PROFESSOR OF LITERACY PSV 11.0 cm/sec Dist ASSOCIATE PROFESSOR OF LITERACY PSV 19.8 24.4 cm/sec Giuliano Pedis PSV 25.3 71.6 cm/sec Right Side Arterial Evaluation Normal velocity and triphasic waveforms noted from the Common Femoral artery to the Popliteal artery. Biphasic with very low velocity, spectral broadening in the Posterior Tibial and Dorsalis Pedis arteries. Anterior Tibial velocity normal. Ankle Brachial index not obtained due to non compressibility. Left Side Arterial Evaluation Normal velocity and triphasic waveforms noted from the Common Femoral artery to the Popliteal artery. Biphasic with very normal velocity, spectral broadening in the Anterior Tibial and Dorsalis Pedis arteries. Posterior Tibial velocity very low. Ankle Brachial index not obtained due to non compressibility. Interpretation Summary Unusual duplex findings, significant below knee with low flow on the right, some preservation in the Anterior Tibial. Severe hemodynamic consequence. No focal stenosis identified. On the left flow good to Popliteal, Moderate compromise in the infrageniculate vessels, despite low measured velocity. Moderate hemodynamic consequence no focal stenosis identified. : ILANA MENDEZ > Emanuel Holliday
== END ==
LOC: SP 10:57
PROVIDERS: ATTEND Preventive Medicine Undersea and Hyperbaric Medicine
DX: L97.422 Non-pressure chronic ulcer of left heel and midfoot with fat layer exposed (principal)
CPT/HCPCS: 36415; 80048; 81001; 82728; 83540; 83550; 83970; 84100; 85027; 93922; 93925

== ENCOUNTER 2019-01-20 14:33 | Inpatient (IN) | payer MEDICARE ==
[2019-01-20] MEDS ORDERED: LORAZEPAM INJ 2 MG/1 ML VIAL ONE (14:38)
[2019-01-20 14:59] LABS: ABSOLUTE BASOPHILS # (AUTO) 0.1 10^3/uL (0.0-0.2); ABSOLUTE EOSINOPHILS # (AUTO) 0.3 10^3/uL (0.0-0.6); ABSOLUTE LYMPHOCYTES (AUTO) 1.6 10^3/uL (0.5-4.7); ABSOLUTE MONOCYTES (AUTO) 0.6 10^3/uL (0.1-1.4); ABSOLUTE NEUT (AUTO) 4.1 10^3/uL (1.7-8.2); BASOPHILS % (AUTO) 0.8 % (0-2); EOSINOPHILS % (AUTO) 4.4 % (0-6); HEMATOCRIT 26.9 % (37.9-51.0); HEMOGLOBIN 9.2 g/dL (13.5-17.0); LYMPHOCYTES % (AUTO) 23.4 % (13-45); MEAN CORPUSCULAR HEMOGLOBIN 29.6 pg (27.0-33.4); MEAN CORPUSCULAR HGB CONC 34.2 g/dL (32.0-36.0); MEAN CORPUSCULAR VOLUME 86 fl (80-97); MONOCYTES % (AUTO) 9.1 % (3-13); PLATELET COUNT 182 10^3/uL (150-450); RED BLOOD COUNT 3.11 10^6/uL (4.35-5.55); RED CELL DISTRIBUTION WIDTH 13.8 % (11.5-14.0); SEGMENTED NEUTROPHILS % (AUTO) 62.3 % (42-78); TOTAL CELLS COUNTED % (AUTO) 100 %; WHITE BLOOD COUNT 6.7 10^3/uL (4.0-10.5)
[2019-01-20 15:20] LABS: ALBUMIN 3.8 g/dL (3.5-5.0); ALKALINE PHOSPHATASE 104 U/L (38-126); ANION GAP 10 (5-19); ASPARTATE AMINO TRANSFERASE 38 U/L (17-59); BILIRUBIN,DIRECT 0.1 mg/dL (0.0-0.4); BILIRUBIN,TOTAL 0.3 mg/dL (0.2-1.3); BLOOD UREA NITROGEN 44 mg/dL (7-20); CALCIUM 8.7 mg/dL (8.4-10.2); CARBON DIOXIDE 25 mmol/L (22-30); CHLORIDE 107 mmol/L (98-107); GLUCOSE 101 mg/dL (75-110); POTASSIUM 4.6 mmol/L (3.6-5.0)
--- NOTE | 2019-01-20 15:24 | RADIOLOGY REPORT (SQ) ---
EXAM DESCRIPTION: CT HEAD WITHOUT COMPLETED DATE/TIME: 01/20/2019 3:12 pm REASON FOR STUDY: AMS COMPARISON: 01/13/2019 TECHNIQUE: Axial images acquired through the brain without intravenous contrast. Images reviewed wi th bone, brain and subdural windows. Additional sagittal and coronal reconstructions were generated. Images stored on PACS. All CT scanners at this facility use dose modulation, iterative reconstruction, and/or weight based d osing when appropriate to reduce radiation dose to as low as reasonably achievable (ALARA). [facility]: Dose Right [facility]: CareDose [facility]: Dose Right [facility]: Teradose 4D [facility]: [employer] RADIATION DOSE: CT Rad equipment meets quality standard of care and radiation dose reduction techniq ues were employed. CTDIvol: 23.9 mGy. DLP: 529 mGy-cm. mGy. LIMITATIONS: None. FINDINGS: VENTRICLES: Normal size and contour. CEREBRUM: No masses. No hemorrhage. No midline shift. No evidence for acute infarction. Unchanged right occipital encephalomalacia. Normal aguilar/white matter differentiation. No areas of low density in the white matter. CEREBELLUM: No masses. No hemorrhage. No alteration of density. No evidence for acute infarction. EXTRAAXIAL SPACES: No fluid collections. No masses. ORBITS AND GLOBE: No intra- or extraconal masses. Normal contour of globe without masses. CALVARIUM: No fracture. PARANASAL SINUSES: No fluid or mucosal thickening. SOFT TISSUES: No mass or hematoma. OTHER: No other significant finding. IMPRESSION: No acute intracranial pathology. Unchanged right occipital infarction. EVIDENCE OF ACUTE STROKE: NO. COMMENT: Quality ID # [id number]: Final reports with documentation of one or more dose reduction techniques (e.g., Automated exposure control, adjustment of the mA and/or kV according to patient size, use of iterative reconstruction technique) TECHNICAL DOCUMENTATION: JOB ID: [id number] [employer]- All Rights Reserved Reading location - IP/workstation name: [email or web address]
--- NOTE | 2019-01-20 15:27 | RADIOLOGY REPORT (SQ) ---
EXAM DESCRIPTION: CHEST SINGLE VIEW COMPLETED DATE/TIME: 01/20/2019 3:17 pm REASON FOR STUDY: AMS COMPARISON: 01/13/2019 NUMBER OF VIEWS: One view. TECHNIQUE: Single frontal radiographic view of the chest acquired. LIMITATIONS: None. FINDINGS: LUNGS AND PLEURA: No opacities, masses or pneumothorax. No pleural effusion. MEDIASTINUM AND HILAR STRUCTURES: No masses. Contour normal. HEART AND VASCULAR STRUCTURES: Heart normal in size. Normal vasculature. BONES: No acute findings. HARDWARE: None in the chest. OTHER: No other significant finding. IMPRESSION: NO SIGNIFICANT RADIOGRAPHIC FINDING IN THE CHEST. TECHNICAL DOCUMENTATION: JOB ID: [id number] [employer]- All Rights Reserved Reading location - IP/workstation name: [email or web address]
[2019-01-20 15:55] LABS: APPEARANCE,URINE SLIGHTLY-CLOUDY; BILIRUBIN,URINE NEGATIVE (NEGATIVE); COLOR,URINE YELLOW; GLUCOSE, URINE NEGATIVE (NEGATIVE); KETONES,URINE NEGATIVE (NEGATIVE); LEUKOCYTE ESTERASE,URINE MODERATE (NEGATIVE); NITRITE,URINE NEGATIVE (NEGATIVE); PROTEIN,URINE NEGATIVE (NEGATIVE); URINE SPECIFIC GRAVITY 1.012; UROBILINOGEN,URINE NEGATIVE mg/dL (<2.0)
[2019-01-20] MEDS ORDERED: LEVOFLOXACIN 750 MG/D5W RTU 750 MG/150 ML RTUPB IV ONE (16:44)
--- NOTE | 2019-01-20 16:53 | ER Document Report ---
ED General - General Chief Complaint: Seizure Stated Complaint: POSSIBLE SEIZURE Time Seen by Provider: 01/20/19 14:51 Primary Care Provider: LEXUS GARCIA MD [Primary Care Provider] - Follow up as needed TRAVEL OUTSIDE OF THE [place] IN LAST 30 DAYS: No - HPI Notes: This is a 68-year-old gentleman who presents today with a complaint of possible seizure activity today. Family states that patient has been "having seizures all day today." They describe episodes where his eyes rolled and he was staring. They did not describe any generalized tonic-clonic seizure activity. Patient appeared to be postictal and confused upon arrival to the ED. Patient was recently admitted for urinary tract infection and put on antibiotics. He also has a history of renal insufficiency. No fever reported. Patient is unable to give a good history. - Related Data Allergies/Adverse Reactions: Penicillins Allergy (Intermediate, Verified 11/24/18 04:29) swelling Past Medical History - Social History Smoking Status: Unknown if Ever Smoked Chew tobacco use (# tins/day): No Frequency of alcohol use: None Drug Abuse: None Family History: Reviewed & Not Pertinent, CAD, DM, Malignancy Patient has suicidal ideation: No Patient has homicidal ideation: No - Past Medical History Cardiac Medical History: Reports: Hx Congestive Heart Failure - Chronic systolic, Hx Hypercholesterolemia, Hx Hypertension Denies: Hx Coronary Artery Disease, Hx Heart Attack Pulmonary Medical History: Reports: Hx COPD Denies: Hx Asthma, Hx Bronchitis, Hx Pneumonia, Hx Tuberculosis Neurological Medical History: Reports: Hx Cerebrovascular Accident, Hx Seizures Endocrine Medical History: Reports: Hx Diabetes Mellitus Type 1, Hx Diabetes Mellitus Type 2. Denies: Hx Hypothyroidism Renal/ Medical History: Reports: Hx Renal Insufficiency. Denies: Hx Peritoneal Dialysis GI Medical History: Reports: Hx Gastroesophageal Reflux Disease Musculoskeletal Medical History: Reports Hx Arthritis Psychiatric Medical History: Denies: Hx Depression Infectious Medical History: Reports: Hx MRSA Past Surgical History: Reports: Hx Internal Defibrillator - With removal, Hx Orthopedic Surgery. Denies: Hx Pacemaker - Immunizations Hx Diphtheria, Pertussis, Tetanus Vaccination: Yes Hx Pneumococcal Vaccination: 01/19/11 Review of Systems - Review of Systems -: Yes ROS unobtainable due to patient's medical condition Neurological/Psychological: Seizure Physical Exam - Vital signs Vitals: Resp BP 16 144/85 H 01/20/19 14:41 01/20/19 14:41 - HEENT Head: Normocephalic, Atraumatic Eyes: Normal Conjunctiva: Other - Right subconjunctival hemorrhage appreciated. Pupils: PERRL - Respiratory Respiratory status: No respiratory distress Chest status: Nontender Breath sounds: Normal Chest palpation: Normal - Cardiovascular Rhythm: Regular Heart sounds: Normal auscultation Murmur: No - Abdominal Inspection: Normal Distension: No distension Bowel sounds: Normal Tenderness: Nontender Organomegaly: No organomegaly - Neurological Cognition: Confused [place] Coma Scale Eye Opening: Spontaneous Notes: Patient was initially confused. But during evaluation he became more alert. He is oriented to person and place. He states he does not want to be here. No obvious focal findings on neurologic exam. Difficult neurologic exam. Course - Re-evaluation Re-evalutation: 01/20/19 17:25 Differential diagnosis includes seizure-like activity versus metabolic derangement versus UTI versus intracranial bleed. 2. Subconjunctival hemorrhage. EKG shows normal sinus rhythm at 61 bpm. Intraventricular conduction delay. No acute injury pattern. 1701 Patient reevaluated. Patient is doing well. Labs and imaging reviewed and discussed. Patient's care discussed with Dr. Ascencio. Will admit. - Vital Signs Vital signs: Temp Pulse Resp BP Pulse Ox 98.4 F 0 L 99/63 L 97 01/20/19 14:47 01/20/19 16:16 01/20/19 16:16 01/20/19 16:16 - Laboratory Result Diagrams: 01/20/19 14:47 01/20/19 14:47 Laboratory results interpreted by me: 01/20/19 01/20/19 01/20/19 14:47 14:47 15:30 RBC 3.11 L Hgb 9.2 L Hct 26.9 L BUN 44 H Creatinine 3.80 H Est GFR ( Amer) 19 L Est GFR (MDRD) Non-Af 16 L Ur Leukocyte Esterase MODERATE H Discharge - Discharge Clinical Impression: Acute UTI, Subconjunctival hemorrhage of right eye Altered mental status Qualifiers: Altered mental status type: transient alteration of awareness Qualified Code(s): R40.4 - Transient alteration of awareness Condition: Stable Disposition: ADMITTED INPATIENT Admitting Provider: Sonu (Hospitalist) Unit Admitted: Telemetry Referrals: LEXUS GARCIA MD [Primary Care Provider] - Follow up as needed
[2019-01-20] MEDS ORDERED: ACETAMINOPHEN 325 MG TABLET PO PRN (18:05)
[2019-01-20] MEDS ORDERED: IPRATROPIUM/ALBUTEROL 0.5-2.5 MG/3 ML AMPUL NEB PRN (18:05)
[2019-01-20] MEDS ORDERED: NORMAL SALINE 1000 ML 1,000 ML IV PRN (18:05)
[2019-01-20] MEDS ORDERED: ONDANSETRON 4 MG TAB.RAPDIS PO PRN (18:05)
[2019-01-20] MEDS ORDERED: DEXTROSE 40% GEL 15 GM TUBE PO PRN ×2 (18:22)
[2019-01-20] MEDS ORDERED: GLUCAGON,HUMAN RECOMB 1 MG INJ IM PRN (18:22)
[2019-01-20] MEDS ORDERED: DEXTROSE 50%-WATER 25 GM/50 ML DISP.SYRIN IV PRN ×2 (18:22)
[2019-01-20] MEDS ORDERED: CARBOXYMETHYLCELLULOSE SOD 0.5% 0.4 ML DROPERETTE OU PRN (18:30)
--- NOTE | 2019-01-20 19:16 | PDOC H&P ---
History of Present Illness Admission Date/PCP: 01/20/19 17:31 LEXUS GARCIA MD Patient complains of: Recurrent seizures this morning. Acute on chronic hypertension, possible recurrent cystitis and hypertension. History of Present Illness: FLAG MORELIA THIBODEAUX is a 68 year old male Past Medical History Cardiac Medical History: Reports: Congestive Heart Failure - Chronic systolic, Hyperlipidema, Hypertension Denies: Coronary Artery Disease, Myocardial Infarction Pulmonary Medical History: Reports: Chronic Obstructive Pulmonary Disease (COPD) Denies: Asthma, Bronchitis, Pneumonia, Tuberculosis EENT Medical History: Denies: Ears, Nose, Throat Neurological Medical History: Reports: Ischemic CVA, Seizures Endocrine Medical History: Reports: Diabetes Mellitus Type 2 Denies: Hypothyroidism Renal/ Medical History: Reports: Chronic Kidney Disease GI Medical History: Reports: Gastroesophageal Reflux Disease Musculoskeltal Medical History: Reports: Arthritis Skin Medical History: Reports: Other - Diabetic foot ulcer Psychiatric Medical History: Reports: Tobacco Dependency Denies: Alcohol Dependency, Depression, Substance Abuse Traumatic Medical History: Reports: None Hematology: Reports: Anemia Infectious Medical History: Reports: Methicillin-Resistant Staph Aureus Past Surgical History Past Surgical History: Reports: Internal Defibrillator - With removal, Orthoped ic Surgery Denies: Pacemaker Social History Information Source: Patient, Relative Lives with: Alone Smoking Status: Current Every Day Smoker Frequency of Alcohol Use: None Hx Recreational Drug Use: No Drugs: None Hx Prescription Drug Abuse: No - Advance Directive Resuscitation Status: Do Not Resuscitate Family History Family History: CAD, DM, Malignancy Parental Family History Reviewed: Yes Children Family History Reviewed: Yes Sibling(s) Family History Reviewed.: Yes Medication/Allergy Home Medications: Aspirin [Ecotrin 81 mg EC Tablet] 81 mg PO DAILY 01/13/19 Atorvastatin Calcium [Lipitor 80 mg Tablet] 80 mg PO QHS 01/13/19 Carvedilol [Coreg 25 mg Tablet] 25 mg PO Q12 01/13/19 Cilostazol [Pletal 100 mg Tablet] 100 mg PO BID 01/13/19 Clopidogrel Bisulfate [Plavix 75 mg Tablet] 75 mg PO DAILY 01/13/19 Ferrous Sulfate [Feosol 325 mg Tablet] 325 mg PO DAILY 01/13/19 Furosemide [Lasix 40 mg Tablet] 40 mg PO BID 01/13/19 Insulin Aspart [Novolog Insulin (Aspart) 100 unit/mL] 0 unit SQ .SLIDING SCALE 01/13/19 Insulin Glargine,Hum.rec.anlog [Rudy Slaughter U-100] 15 unit SQ DAILY 01/13/19 Levetiracetam [Keppra 500 mg Tablet] 500 mg PO Q12 01/13/19 Multivitamin [Tab-A-Alyce (Multiple Vitamin) Tablet] 1 tab PO DAILY 01/13/19 Sacubitril/Valsartan [Entresto 49 mg/51 mg Tablet] 1 tab PO Q12 01/13/19 Allergies/Adverse Reactions: Penicillins Allergy (Intermediate, Verified 11/24/18 04:29) swelling Review of Systems Constitutional: PRESENT: fatigue, headache(s), weakness - Legs feel weak. ABSENT: anorexia, night sweats Eyes: ABSENT: visual disturbances Ears: ABSENT: hearing changes Nose, Mouth, and Throat: PRESENT: other - Reports anterior neck pain turning head to the right or left. Also muscle ache posterior neck muscles Cardiovascular: PRESENT: edema. ABSENT: chest pain, palpitations Respiratory: ABSENT: cough, hemoptysis, sputum Gastrointestinal: ABSENT: abdominal pain, constipation, heartburn, nausea, vomiting Genitourinary: ABSENT: difficulty urinating, dysuria, hematuria Musculoskeletal: ABSENT: joint swelling Integumentary: PRESENT: other - Left heel ulcer. Very dry skin. Small bullous lesion right leg. Neurological: PRESENT: abnormal gait, abnormal speech, convulsions, numbness, tingling, weakness. ABSENT: syncope Psychiatric: ABSENT: anxiety, depression Endocrine: ABSENT: cold intolerance, heat intolerance, polydipsia, polyphagia, polyuria Hematologic/Lymphatic: ABSENT: easy bleeding, easy bruising, lymphadenopathy Allergic/Immunologic: ABSENT: seasonal rhinorrhea Physical Exam Vital Signs: Temp Pulse Resp BP Pulse Ox 98.4 F 0 L 99/63 L 97 01/20/19 14:47 01/20/19 16:16 01/20/19 16:16 01/20/19 16:16 Intake & Output 01/19/19 01/20/19 01/21/19 06:59 06:59 06:59 Weight 87.3 kg General appearance: PRESENT: no acute distress, cooperative, well-developed Head exam: PRESENT: atraumatic, normocephalic Eye exam: PRESENT: conjunctiva pale, EOMI, other - Hyphema right eye. ABSENT: nystagmus, scleral icterus - Dirty sclera. No saray icterus Ear exam: PRESENT: normal external ear exam. ABSENT: bleeding, drainage Mouth exam: PRESENT: dry mucosa, neck supple, tongue midline Teeth exam: PRESENT: poor dentation Neck exam: ABSENT: carotid bruit, JVD, lymphadenopathy, tenderness Respiratory exam: PRESENT: clear to auscultation nathan, symmetrical, unlabored. ABSENT: accessory muscle use, prolonged expiratory phas, rales, rhonchi, tachypnea, wheezes Cardiovascular exam: PRESENT: RRR, +S1, +S2, systolic murmur - 2/6 GI/Abdominal exam: PRESENT: diminished bowel sounds, soft. ABSENT: distended, guarding, tenderness Rectal exam: PRESENT: deferred Extremities exam: PRESENT: other - Trace edema lower extremities. ABSENT: te nderness Neurological exam: PRESENT: alert, awake, oriented to person, oriented to place, oriented to time, oriented to situation, other - Dysarthria from old stroke Psychiatric exam: PRESENT: flat affect. ABSENT: agitated, anxious Focused psych exam: ABSENT: delusional, pressured speech, restlessness Skin exam: PRESENT: normal color, vesicles - Single bullous lesion right leg, other - Left heel ulcer. Small amount of nonviable blackened tissue medially. Some exposed subcutaneous tissue as well. Old dried serosanguineous drainage on the dressing. Results Laboratory Results: 01/20/19 14:47 01/20/19 14:47 01/20/19 01/20/19 01/20/19 14:47 14:47 15:30 WBC 6.7 RBC 3.11 L Hgb 9.2 L Hct 26.9 L MCV 86 MCH 29.6 MCHC 34.2 RDW 13.8 Plt Count 182 Seg Neutrophils % 62.3 Sodium 141.9 Potassium 4.6 Chloride 107 Carbon Dioxide 25 Anion Gap 10 BUN 44 H Creatinine 3.80 H Est GFR ( Amer) 19 L Glucose 101 Calcium 8.7 Total Bilirubin 0.3 AST 38 Alkaline Phosphatase 104 Total Protein 7.0 Albumin 3.8 Urine Color YELLOW Urine Appearance SLIGHTLY-CLOUDY Urine pH 5.0 Ur Specific [place] 1.012 Urine Protein NEGATIVE Urine Glucose (UA) NEGATIVE Urine Ketones NEGATIVE Urine Blood NEGATIVE Urine Nitrite NEGATIVE Ur Leukocyte Esterase MODERATE H Urine WBC (Auto) 44 Urine RBC (Auto) 2 Impressions: Head CT 01/20/19 14:52 IMPRESSION: No acute intracranial pathology. Unchanged right occipital infarction. EVIDENCE OF ACUTE STROKE: NO. Chest X-Ray 01/20/19 14:53 IMPRESSION: NO SIGNIFICANT RADIOGRAPHIC FINDING IN THE CHEST. Assessment and Plan - Diagnosis (1) Seizure Is this a current diagnosis for this admission?: Yes (2) Acute worsening of stage 3 chronic kidney disease Is this a current diagnosis for this admission?: Yes (3) Acute UTI Is this a current diagnosis for this admission?: Yes (4) HTN (hypertension) Qualifiers: Hypertension type: essential hypertension Qualified Code(s): I10 - Essential (primary) hypertension Is this a current diagnosis for this admission?: Yes (5) Altered mental status Qualifiers: Altered mental status type: transient alteration of awareness Qualified Code(s): R40.4 - Transient alteration of awareness Is this a current diagnosis for this admission?: Yes (6) Subconjunctival hemorrhage of right eye Is this a current diagnosis for this admission?: Yes (7) Pressure ulcer of right heel, stage 3 Is this a current diagnosis for this admission?: Yes (8) Diabetes mellitus type 2 with peripheral artery disease Is this a current diagnosis for this admission?: Yes (9) Chronic diastolic CHF (congestive heart failure) Is this a current diagnosis for this admission?: Yes (10) Type 2 diabetes mellitus Qualifiers: Diabetes mellitus medical terminologist insulin use: with mcc use Chronic kidney disease stage: stage 3 (moderate) Is this a current diagnosis for this admission?: Yes (11) Dysarthria Is this a current diagnosis for this admission?: Yes - Plan Summary Summary: Seizure disorder-family states that the patient had a seizure at home and refused to come to the emergency department. He did go to the primary care office and they referred him to the emergency department. When he arrived he had a seizure in the emergency department as well. The initial seizure lasted approximately 4 to 5 minutes. Second seizure lasted approximately 1 minute. Family reports that the eyes rolled into the back of his head. There was no tonic-clonic activity but he does have a blank stare and did not respond to stimuli. He does have a history of seizures. He is currently on Keppra 500 mg twice daily which is in fact, considering his renal failure, is at the upper end of the treatment range. We will continue the 500 mg twice daily. I have ordered an EEG as well. The seizures could be related to a previous infarct which is the most likely cause. In addition the family does report that at home his blood pressure reached systolic of greater than 200 and this could certainly cause seizure as well. CT scan of the brain reveals right occipital encephalomalacia from previous stroke but no acute infarct. Acute on chronic kidney failure-the patient's GFR today is 19. He is usually a stage III kidney failure. Most likely etiology is diabetes however he also has hypertension. His model making supervisor, Dr. Taylor, is aware that he is coming to the emergency department and I will ask him to consult on the patient. I do believe the patient is dry. Is been taking Lasix 40 mg twice daily. He does have 18 hyaline casts per low power field in his urine. I will change his Lasix to once daily starting tomorrow and I will administer 1 L of fluid tonight. Acute urinary tract infection-the patient was just discharged last week with acute urinary infection. He was on Bactrim and ciprofloxacin. Urinalysis does show white cells with trace bacteria and budding yeast. He did not complete his antibiotic therapy from recent discharge as it was felt the antibiotics were causing altered mental status. He has been off of the antibiotics since Friday. Urine and blood cultures have been requested. Hypertension-in the emergency department his blood pressure was in fact normal. We will continue his current regimen (verified from the prescription bottles brought in by the family) with parameters to hold for low pulse or low blood pressure. Altered mental status-the patient was post-ictal and this likely was the main reason for the encephalopathy. He in fact is back at his baseline at this time. Other contributing factors would be the acute on chronic kidney failure and possible recurrent cystitis. Sub-conjunctival hemorrhage right eye-most likely from acute spike in blood pressure. The family reports no coughing. He did not exhibit tonic clonic activity. We will apply eyedrops for moisture. Continue to monitor blood pressure. Pressure ulcer left heel. The patient is seeing Dr. Aggarwal at the wound care center. He does have an appointment tomorrow. I will reach out to Dr. Aggarwal and see if he would consider consult at this facility. We will use Xeroform and gauze for now. We do not have collagen products and so simple dressings will have to suffice. The patient did have Doppler studies of his legs and there is decreased circulation. See discussion below. Peripheral arterial disease-Doppler studies show normal waveform and flow from the femoral to popliteal arteries. After the popliteal arteries there is diminished circulation in each leg. There is decreased flow and on the right leg there was no posterior tibial circulation identifiable. We will continue Plavix and Pletal at this time. He is also on statin therapy. Chronic diastolic heart failure-in 2019 the echocardiogram revealed an ejection fraction of 60% with 1/4 diastolic failure and mild mitral regurgitation and trace tricuspid regurgitation. We will continue his current regimen which includes Coreg, Entresto, furosemide as well as the Plavix, Pletal and atorvastatin. He is also on 81 mg of aspirin daily. We will monitor intake and output. Because I believe he is on the dry side I will hold furosemide tonight. He will get 1 L of IV fluids and will resume furosemide at 40 mg once daily starting tomorrow. Diabetes mellitus type 2-we will continue Lantus 15 units each morning and sliding scale coverage. He will be on a diabetic cardiac diet. Dysarthria-this is from his recent ischemic stroke. He states that his tongue feels like it is getting cut or feels like a piece of meat. His tongue is not swollen but it does appear dry. It also affects his speech. He has been getting physical therapy and speech therapy at home. We will continue these therapeutic modalities as an inpatient. - Time Time Spent with patient: 35 or more minutes Smoking Cessation Education: 3 to 10 minutes Medications reviewed and adjusted accordingly: Yes Anticipated discharge: Home - Inpatient Certification Based on my medical assessment, after consideration of the patient's comorbidities, presenting symptoms, or acuity I expect that the services needed warrant INPATIENT care.: Yes I certify that my determination is in accordance with my understanding of Medicare's requirements for reasonable and necessary INPATIENT services [42 CFR 412.3e].: Yes Medical Necessity: Need For IV Fluids, Need For Continuous Telemetry Monitoring, Need for IV Antibiotics Post Hospital Care: Other - Will resume home health services
--- NOTE | 2019-01-20 19:58 | EKG REPORT ---
SEVERITY:- ABNORMAL ECG - SINUS RHYTHM NONSPECIFIC INTRAVENTRICULAR CONDUCTION DELAY : Confirmed by: Yelitza Tatum MD 20-Jan-2019 19:58:00
[2019-01-20] MEDS ORDERED: DIAZEPAM INJ 10 MG/2 ML DISP.SYRIN IV PRN (21:53)
[2019-01-20] MEDS: INSULIN LISPRO 100 UNIT/ML 3 ML VIAL SUBCUT SCH ×2 (22:35→22:39)
[2019-01-20] MEDS: ATORVASTATIN CALCIUM 80 MG TABLET PO SCH (22:36)
[2019-01-20] MEDS: LEVETIRACETAM 500 MG TABLET PO SCH (22:36)
[2019-01-20] MEDS: CARVEDILOL 12.5 MG TABLET PO SCH (22:36)
[2019-01-20] MEDS: FAMOTIDINE 20 MG TABLET PO SCH (22:36)
[2019-01-20] MEDS: HEPARIN SOD (PORCINE) 5,000 UNIT/ML 1 ML VIAL SUBCUT SCH ×2 (22:36→22:50)
[2019-01-21 04:54] LABS: ABSOLUTE EOSINOPHILS # (AUTO) 0.3 10^3/uL (0.0-0.6); ABSOLUTE LYMPHOCYTES (AUTO) 1.7 10^3/uL (0.5-4.7); ABSOLUTE MONOCYTES (AUTO) 0.6 10^3/uL (0.1-1.4); ABSOLUTE NEUT (AUTO) 2.9 10^3/uL (1.7-8.2); BASOPHILS % (AUTO) 0.9 % (0-2); EOSINOPHILS % (AUTO) 4.8 % (0-6); HEMATOCRIT 23.5 % (37.9-51.0); HEMOGLOBIN 8.1 g/dL (13.5-17.0); LYMPHOCYTES % (AUTO) 30.9 % (13-45); MEAN CORPUSCULAR HEMOGLOBIN 29.8 pg (27.0-33.4); MEAN CORPUSCULAR HGB CONC 34.3 g/dL (32.0-36.0); MEAN CORPUSCULAR VOLUME 87 fl (80-97); MONOCYTES % (AUTO) 11.3 % (3-13); PLATELET COUNT 165 10^3/uL (150-450); RED BLOOD COUNT 2.71 10^6/uL (4.35-5.55); RED CELL DISTRIBUTION WIDTH 14.1 % (11.5-14.0); SEGMENTED NEUTROPHILS % (AUTO) 52.1 % (42-78); TOTAL CELLS COUNTED % (AUTO) 100 %; WHITE BLOOD COUNT 5.5 10^3/uL (4.0-10.5)
[2019-01-21 05:11] LABS: ALBUMIN 3.2 g/dL (3.5-5.0); ANION GAP 5 (5-19); BLOOD UREA NITROGEN 42 mg/dL (7-20); CALCIUM 8.4 mg/dL (8.4-10.2); CARBON DIOXIDE 28 mmol/L (22-30); CHLORIDE 109 mmol/L (98-107); CHOLESTEROL 78.55 mg/dL (0-200); GLUCOSE 80 mg/dL (75-110); PHOSPHORUS 3.2 mg/dL (2.5-4.5); POTASSIUM 4.6 mmol/L (3.6-5.0); TRIGLYCERIDES 24 mg/dL (<150)
[2019-01-21 05:21] LABS: DIRECT LDL 34 mg/dL (<100)
[2019-01-21] MEDS: HEPARIN SOD (PORCINE) 5,000 UNIT/ML 1 ML VIAL SUBCUT SCH ×3 (05:21→22:11)
[2019-01-21] MEDS: INSULIN LISPRO 100 UNIT/ML 3 ML VIAL SUBCUT SCH ×4 (07:28→21:11)
[2019-01-21] MEDS: CILOSTAZOL 100 MG TABLET PO SCH ×2 (07:29→16:08)
[2019-01-21] MEDS: FUROSEMIDE 40 MG TABLET PO SCH (10:23)
[2019-01-21] MEDS: CLOPIDOGREL BISULFATE 75 MG TABLET PO SCH (10:23)
[2019-01-21] MEDS: SACUBITRIL/VALSARTAN 49 MG/51 MG TABLET PO SCH ×2 (10:23→17:28)
[2019-01-21] MEDS: LEVETIRACETAM 500 MG TABLET PO SCH ×2 (10:23→22:10)
[2019-01-21] MEDS: FERROUS SULFATE 325 MG TABLET PO SCH (10:23)
[2019-01-21] MEDS: FAMOTIDINE 20 MG TABLET PO SCH ×2 (10:23→22:11)
[2019-01-21] MEDS: ASPIRIN 81 MG TABLET, ENT COATED PO SCH (10:23)
[2019-01-21] MEDS: CARVEDILOL 12.5 MG TABLET PO SCH ×2 (10:23→22:10)
[2019-01-21] MEDS: INSULIN GLARGINE,HUM.REC.ANLOG 1,000 UNIT/10 ML VIAL SUBCUT SCH (10:31)
[2019-01-21] MEDS ORDERED: LORAZEPAM INJ 2 MG/1 ML VIAL IV PRN (11:26)
--- NOTE | 2019-01-21 11:29 | PDOC PROGRESS REPORT ---
Subjective Progress Note for:: 01/21/19 Subjective:: 01/21/2019. Patient was admitted yesterday through the emergency room for recurrent seizures. Patient was being treated for UTI and possibly the medication he was on, Bactrim and Cipro for his seizure threshold. Patient presented to the ER for having a seizure at home. She also had a seizure in the ER that lasted 4 to 5 minutes. Patient is on Keppra 500 mg twice daily Reason For Visit: SEIZURE,POSSIBLE RECURRENT UTI,ACUTE ON CHRONIC Physical Exam Vital Signs: Temp Pulse Resp BP Pulse Ox 98.1 F 60 12 141/77 H 99 01/21/19 08:00 01/21/19 08:00 01/21/19 08:00 01/21/19 08:00 01/21/19 08:00 Intake & Output 01/20/19 01/21/19 01/22/19 06:59 06:59 06:59 Intake Total 160 1000 Output Total 400 Balance -240 1000 Weight 84.6 kg General appearance: PRESENT: mild distress Eye exam: PRESENT: other - Has what appears to be a sub-conjunctival hemorrhage of the right eye Respiratory exam: PRESENT: clear to auscultation nathan. ABSENT: rales, rhonchi, wheezes Cardiovascular exam: PRESENT: RRR. ABSENT: diastolic murmur, rubs, systolic murmur Neurological exam: PRESENT: alert, awake, oriented to person, oriented to place, oriented to time, oriented to situation, CN II-XII grossly intact, other - Patie nt speaks in a very muted tone. Patient may be at his baseline.. ABSENT: motor sensory deficit Psychiatric exam: PRESENT: appropriate affect, normal mood, other - Patient an swers all questions ,patient appears pleasant. ABSENT: homicidal ideation, suicidal ideation Results Laboratory Results: 01/21/19 03:56 01/21/19 03:56 01/20/19 01/20/19 01/20/19 14:47 14:47 15:30 WBC 6.7 RBC 3.11 L Hgb 9.2 L Hct 26.9 L MCV 86 MCH 29.6 MCHC 34.2 RDW 13.8 Plt Count 182 Seg Neutrophils % 62.3 Sodium 141.9 Potassium 4.6 Chloride 107 Carbon Dioxide 25 Anion Gap 10 BUN 44 H Creatinine 3.80 H Est GFR ( Amer) 19 L Glucose 101 Calcium 8.7 Phosphorus Magnesium Total Bilirubin 0.3 AST 38 Alkaline Phosphatase 104 Total Protein 7.0 Albumin 3.8 Triglycerides Cholesterol LDL Cholesterol Direct VLDL Cholesterol HDL Cholesterol Urine Color YELLOW Urine Appearance SLIGHTLY-CLOUDY Urine pH 5.0 Ur Specific [place] 1.012 Urine Protein NEGATIVE Urine Glucose (UA) NEGATIVE Urine Ketones NEGATIVE Urine Blood NEGATIVE Urine Nitrite NEGATIVE Ur Leukocyte Esterase MODERATE H Urine WBC (Auto) 44 Urine RBC (Auto) 2 01/21/19 01/21/19 03:56 03:56 WBC 5.5 RBC 2.71 L Hgb 8.1 L Hct 23.5 L MCV 87 MCH 29.8 MCHC 34.3 RDW 14.1 H Plt Count 165 Seg Neutrophils % 52.1 Sodium 142.3 Potassium 4.6 Chloride 109 H Carbon Dioxide 28 Anion Gap 5 BUN 42 H Creatinine 3.54 H Est GFR ( Amer) 21 L Glucose 80 Calcium 8.4 Phosphorus 3.2 Magnesium 2.5 H Total Bilirubin AST Alkaline Phosphatase Total Protein Albumin 3.2 L Triglycerides 24 Cholesterol 78.55 LDL Cholesterol Direct 34 VLDL Cholesterol 5.0 L HDL Cholesterol 40 Urine Color Urine Appearance Urine pH Ur Specific [place] Urine Protein Urine Glucose (UA) Urine Ketones Urine Blood Urine Nitrite Ur Leukocyte Esterase Urine WBC (Auto) Urine RBC (Auto) 01/21/19 03:56 NT-Pro-B Natriuret Pep 422 Impressions: Head CT 01/20/19 14:52 IMPRESSION: No acute intracranial pathology. Unchanged right occipital infarction. EVIDENCE OF ACUTE STROKE: NO. Chest X-Ray 01/20/19 14:53 IMPRESSION: NO SIGNIFICANT RADIOGRAPHIC FINDING IN THE CHEST. Assessment and Plan - Plan Summary Summary: Seizure disorder-family states that the patient had a seizure at home and refused to come to the emergency department. He did go to the primary care office and they referred him to the emergency department. When he arrived he had a seizure in the emergency department as well. The initial seizure lasted approximately 4 to 5 minutes. Second seizure lasted approximately 1 minute. Family reports that the eyes rolled into the back of his head. There was no tonic-clonic activity but he does have a blank stare and did not respond to stimuli. He does have a history of seizures. He is currently on Keppra 500 mg twice daily which is in fact, considering his renal failure, is at the upper end of the treatment range. We will continue the 500 mg twice daily. I have ordered an EEG as well. The seizures could be related to a previous infarct which is the most likely cause. In addition the family does report that at home his blood pressure reached systolic of greater than 200 and this could certainly cause seizure as well. CT scan of the brain reveals right occipital encephalomalacia from previous stroke but no acute infarct. Acute on chronic kidney failure-the patient's GFR today is 19. He is usually a stage III kidney failure. Most likely etiology is diabetes however he also has hypertension. His pst specialist, Dr. Taylor, is aware that he is coming to the emergency department and I will ask him to consult on the patient. I do believe the patient is dry. Is been taking Lasix 40 mg twice daily. He does have 18 hyaline casts per low power field in his urine. I will change his Lasix to once daily starting tomorrow and I will administer 1 L of fluid tonight. Acute urinary tract infection-the patient was just discharged last week with acute urinary infection. He was on Bactrim and ciprofloxacin. Urinalysis does show white cells with trace bacteria and budding yeast. He did not complete his antibiotic therapy from recent discharge as it was felt the antibiotics were causing altered mental status. He has been off of the antibiotics since Friday. Urine and blood cultures have been requested. Hypertension-in the emergency department his blood pressure was in fact normal. We will continue his current regimen (verified from the prescription bottles brought in by the family) with parameters to hold for low pulse or low blood pressure. Altered mental status-the patient was post-ictal and this likely was the main reason for the encephalopathy. He in fact is back at his baseline at this time. Other contributing factors would be the acute on chronic kidney failure and possible recurrent cystitis. Sub-conjunctival hemorrhage right eye-most likely from acute spike in blood pressure. The family reports no coughing. He did not exhibit tonic clonic activity. We will apply eyedrops for moisture. Continue to monitor blood pressure. Pressure ulcer left heel. The patient is seeing Dr. Aggarwal at the wound care center. He does have an appointment tomorrow. I will reach out to Dr. Jasen carreno d see if he would consider consult at this facility. We will use Xeroform and gauze for now. We do not have collagen products and so simple dressings will have to suffice. The patient did have Doppler studies of his legs and there is decreased circulation. See discussion below. Peripheral arterial disease-Doppler studies show normal waveform and flow from the femoral to popliteal arteries. After the popliteal arteries there is diminished circulation in each leg. There is decreased flow and on the right leg there was no posterior tibial circulation identifiable. We will continue Plavix and Pletal at this time. He is also on statin therapy. Chronic diastolic heart failure-in 2019 the echocardiogram revealed an ejection fraction of 60% with 1/4 diastolic failure and mild mitral regurgitation and trace tricuspid regurgitation. We will continue his current regimen which includes Coreg, Entresto, furosemide as well as the Plavix, Pletal and atorvastatin. He is also on 81 mg of aspirin daily. We will monitor intake and output. Because I believe he is on the dry side I will hold furosemide tonight. He will get 1 L of IV fluids and will resume furosemide at 40 mg once daily s tarting tomorrow. Diabetes mellitus type 2-we will continue Lantus 15 units each morning and sliding scale coverage. He will be on a diabetic cardiac diet. Dysarthria-this is from his recent ischemic stroke. He states that his tongue feels like it is getting cut or feels like a piece of meat. His tongue is not swollen but it does appear dry. It also affects his speech. He has been getting physical therapy and speech therapy at home. We will continue these therapeutic modalities as an inpatient. 01/21/2019 patient CBC appears to be normal, sodium 142 potassium 4.6 BUN is elevated at 42 creatinine 3.54 GFR is 21. Renal functions are slightly better than yesterday not much. Her graph hemoglobin A1c is 6.6 calcium 8.4 phosphorus 3.2 magnesium slightly high at 2.5 albumin low at 3.2. Urinalysis shows moderate leukocytes ,urine and blood cultures are pending. Chest x-ray from yesterday is negative. CT head scan showed an old infarct in the right occipital region but no acute stroke Appears as though patient suffered a breakthrough and his seizure disorder and will check a Keppra level. Treat him for UTI - Time Time Spent with patient: 35 or more minutes
[2019-01-21] MEDS: NORMAL SALINE 1000 ML 1,000 ML IV PRN (14:53)
--- NOTE | 2019-01-21 15:24 | PDOC CONSULTATION ---
Consultation Consult Date: 01/21/19 Provider Consulted: Giuliana GALO Consult reason:: Acute on chronic kidney disease History of Present Illness Admission Date/PCP: 01/20/19 17:31 LEXUS GARCIA MD History of Present Illness: FLAG MORELIA THIBODEAUX is a 68 year old male with a past history of long-standing complicated diabetes mellitus hypertension CKD stage III with a base creatinine of around 2-2.5, CAD, CHF, chronic anemia was admitted with history of recurring seizures and postictal issues. He was recently admitted and discharged with UTI on Bactrim and Cipro apparently. Patient today is awake alert and responding to questions appropriately. He has got previous history of stroke and residual deficits from that with some amount of dysphasia and physical deficits. Patient currently denies any history of chest pain or shortness of breath or abdominal pains. He denies any history to indicate prostatitism. No history of any headaches. No history of any fever or chills. He admits to the fact that his intake has been very poor for the last 3 to 4 days. He has had some issues with swallowing and is being worked up for that. Labs and medications were reviewed. Past Medical History Cardiac Medical History: Reports: Hyperlipidemia, Hypertension-primary Denies: Coronary Artery Disease, Myocardial Infarction Pulmonary Medical History: Reports: Chronic Obstructive Pulmonary Disease (COPD) Denies: Asthma, Bronchitis, Pneumonia, Tuberculosis EENT Medical History: Denies: Ears, Nose, Throat Neurological Medical History: Reports: Ischemic CVA, Seizures Endocrine Medical History: Reports: Diabetes Mellitus Type 2 Denies: Hypothyroidism Complications of Diabetes: Reports: None Renal/ Medical History: Reports: Chronic Kidney Disease Stage II GI Medical History: Reports: Gastroesophageal Reflux Disease Musculoskeltal Medical History: Reports: Arthritis Skin Medical History: Reports: Other - Diabetic foot ulcer Psychiatric Medical History: Reports: Tobacco Dependency Denies: Alcohol Dependency, Depression, Substance Abuse Traumatic Medical History: Reports: None Infectious Medical History: Reports: Methicillin-resist Staph Aureus Hematology Medical History: Reports Anemia - Chronic Past Surgical History Past Surgical History: Reports: Internal Defibrillator - With removal, Orthopedic Surgery Denies: Pacemaker Social History Lives with: Alone Smoking Status: Unknown if Ever Smoked Electronic Cigarette use?: No Frequency of Alcohol Use: None Hx Recreational Drug Use: No Drugs: None Hx Prescription Drug Abuse: No - Advance Directive Resuscitation Status: Do Not Resuscitate Family History Parental Family History Reviewed: No Children Family History Reviewed: No Sibling(s) Family History Reviewed.: No Medication/Allergy Home Medications: Aspirin [Ecotrin 81 mg EC Tablet] 81 mg PO DAILY 01/13/19 Atorvastatin Calcium [Lipitor 80 mg Tablet] 80 mg PO QHS 01/13/19 Carvedilol [Coreg 25 mg Tablet] 25 mg PO Q12 01/13/19 Cilostazol [Pletal 100 mg Tablet] 100 mg PO BID 01/13/19 Clopidogrel Bisulfate [Plavix 75 mg Tablet] 75 mg PO DAILY 01/13/19 Ferrous Sulfate [Feosol 325 mg Tablet] 325 mg PO DAILY 01/13/19 Furosemide [Lasix 40 mg Tablet] 40 mg PO BID 01/13/19 Insulin Aspart [Novolog Insulin (Aspart) 100 unit/mL] 0 unit SQ .SLIDING SCALE 01/13/19 Insulin Glargine,Hum.rec.anlog [Basaglar Kwikpen U-100] 15 unit SQ DAILY 01/13/19 Levetiracetam [Keppra 500 mg Tablet] 500 mg PO Q12 01/13/19 Multivitamin [Tab-A-Alyce (Multiple Vitamin) Tablet] 1 tab PO DAILY 01/13/19 Sacubitril/Valsartan [Entresto 49 mg/51 mg Tablet] 1 tab PO Q12 01/13/19 Allergies/Adverse Reactions: Penicillins Allergy (Intermediate, Verified 11/24/18 04:29) swelling Review of Systems Constitutional: PRESENT: anorexia, fatigue, weakness. ABSENT: chills, fever(s), headache(s), night sweats Nose, Mouth, and Throat: ABSENT: mouth pain, sore throat Cardiovascular: ABSENT: chest pain, dyspnea on exertion, edema, orthropnea, palpitations Respiratory: ABSENT: cough, dyspnea, hemoptysis Gastrointestinal: PRESENT: constipation. ABSENT: abdominal pain, bloating, diarrhea, dysphagia, heartburn, hematemesis, hematochezia, nausea, vomiting Genitourinary: ABSENT: difficulty urinating, dysuria, hematuria Musculoskeletal: ABSENT: deformity, joint swelling Integumentary: ABSENT: lesions, pruritus, rash Neurological: PRESENT: abnormal gait, abnormal speech, convulsions, focal weakness. ABSENT: abnormal movements, confusion, dizziness Endocrine: ABSENT: polydipsia Hematologic/Lymphatic: ABSENT: easy bruising, lymphadenopathy Physical Exam Vital Signs: Temp Pulse Resp BP Pulse Ox 98.0 F 62 16 159/82 H 99 01/21/19 12:41 01/21/19 12:46 01/21/19 12:46 01/21/19 12:41 01/21/19 12:46 Intake & Output 01/20/19 01/21/19 01/22/19 06:59 06:59 06:59 Intake Total 160 1000 Output Total 400 1350 Balance -240 -350 Weight 84.6 kg General appearance: PRESENT: no acute distress Eye exam: PRESENT: EOMI, PERRLA Ear exam: PRESENT: normal external ear exam Mouth exam: PRESENT: neck supple. ABSENT: moist Neck exam: ABSENT: lymphadenopathy, meningismus, tenderness, thyromegaly, tracheal deviation Respiratory exam: PRESENT: clear to auscultation nathan. ABSENT: chest wall tenderness, crackles, decreased breath sounds Cardiovascular exam: PRESENT: +S1, +S2 GI/Abdominal exam: PRESENT: normal bowel sounds, organomegaly, soft. ABSENT: tenderness Extremities exam: ABSENT: pedal edema Neurological exam: PRESENT: alert, awake, oriented to person, oriented to place, oriented to time Psychiatric exam: PRESENT: appropriate affect Skin exam: ABSENT: cyanosis, erythema, mottled, rash Results Laboratory Results: 01/21/19 03:56 01/21/19 03:56 01/20/19 01/20/19 01/21/19 14:47 15:30 03:56 WBC 5.5 RBC 2.71 L Hgb 8.1 L Hct 23.5 L MCV 87 MCH 29.8 MCHC 34.3 RDW 14.1 H Plt Count 165 Seg Neutrophils % 52.1 Sodium 141.9 Potassium 4.6 Chloride 107 Carbon Dioxide 25 Anion Gap 10 BUN 44 H Creatinine 3.80 H Est GFR ( Amer) 19 L Glucose 101 Calcium 8.7 Phosphorus Magnesium Total Bilirubin 0.3 AST 38 Alkaline Phosphatase 104 Total Protein 7.0 Albumin 3.8 Triglycerides Cholesterol LDL Cholesterol Direct VLDL Cholesterol HDL Cholesterol Urine Color YELLOW Urine Appearance SLIGHTLY-CLOUDY Urine pH 5.0 Ur Specific Ethan 1.012 Urine Protein NEGATIVE Urine Glucose (UA) NEGATIVE Urine Ketones NEGATIVE Urine Blood NEGATIVE Urine Nitrite NEGATIVE Ur Leukocyte Esterase MODERATE H Urine WBC (Auto) 44 Urine RBC (Auto) 2 01/21/19 03:56 WBC RBC Hgb Hct MCV MCH MCHC RDW Plt Count Seg Neutrophils % Sodium 142.3 Potassium 4.6 Chloride 109 H Carbon Dioxide 28 Anion Gap 5 BUN 42 H Creatinine 3.54 H Est GFR ( Amer) 21 L Glucose 80 Calcium 8.4 Phosphorus 3.2 Magnesium 2.5 H Total Bilirubin AST Alkaline Phosphatase Total Protein Albumin 3.2 L Triglycerides 24 Cholesterol 78.55 LDL Cholesterol Direct 34 VLDL Cholesterol 5.0 L HDL Cholesterol 40 Urine Color Urine Appearance Urine pH Ur Specific Ethan Urine Protein Urine Glucose (UA) Urine Ketones Urine Blood Urine Nitrite Ur Leukocyte Esterase Urine WBC (Auto) Urine RBC (Auto) 01/21/19 03:56 NT-Pro-B Natriuret Pep 422 Impressions: Head CT 01/20/19 14:52 IMPRESSION: No acute intracranial pathology. Unchanged right occipital infarction. EVIDENCE OF ACUTE STROKE: NO. Chest X-Ray 01/20/19 14:53 IMPRESSION: NO SIGNIFICANT RADIOGRAPHIC FINDING IN THE CHEST. Assessment & Plan - Diagnosis (1) Acute worsening of stage 3 chronic kidney disease Is this a current diagnosis for this admission?: Yes Plan: Acute on chronic kidney disease most likely secondary to dehydration. Rule out obstructive lesions given the background history of recent UTI in the face ofdiabetes mellitus and CVA to rule out the possibility of neurogenic bladder. Get a renal ultrasound. Start IV fluids. (2) Altered mental status Qualifiers: Altered mental status type: transient alteration of awareness Qualified Code(s): R40.4 - Transient alteration of awareness Is this a current diagnosis for this admission?: Yes Plan: Most likely postictal given the fact that he is much improved today. (3) Diabetes Qualifiers: Diabetes mellitus type: type 2 Diabetes mellitus manager terminal insulin use: with manager terminal use Diabetes mellitus complication status: with kidney complications Diabetes mellitus complication detail: with chronic kidney disease Chronic kidney disease stage: stage 3 (moderate) Qualified Code(s): E11.22 - Type 2 diabetes mellitus with diabetic chronic kidney disease; N18.3 - Chronic kidney disease, stage 3 (moderate); Z79.4 - group home (current) use of insulin Plan: As per hospitalist (4) Anemia Qualifiers: Anemia type: due to chronic kidney disease Chronic kidney disease stage: stage 3 (moderate) Qualified Code(s): N18.3 - Chronic kidney disease, stage 3 (moderate); D63.1 - Anemia in chronic kidney disease; D63.1 - Anemia in chronic kidney disease Plan: Will initiate work-up and see if there is any involvement of chronic kidney disease as a factor. (5) Diastolic CHF Qualifiers: Heart failure chronicity: chronic Qualified Code(s): I50.32 - Chronic diastolic (congestive) heart failure Plan: Status quo. Presently compensated. (6) History of CVA with residual deficit Plan: Status quo. Imaging studies of the brain shows no acute events. (7) Seizure disorder Plan: On Keppra. Its most likely the antibiotics could have interacted with this medicine lowering his seizure threshold to precipitate his present attacks. Obviously any new medications needs to be checked for interactions of alteration of drug levels prior to institution in the future. (8) Urinary tract infection Qualifiers: Urinary tract infection type: site unspecified Hematuria presence: without hematuria Qualified Code(s): N39.0 - Urinary tract infection, site not specified Plan: Recent admission for the same. Do not see any imaging studies. Rule out a neurogenic bladder given background history.
--- NOTE | 2019-01-21 17:54 | NEURO WORKBENCH EEG REPORT ---
EEG Report Patient: Flag Mg Shah ID: [id number] Referring Doctor: Khai Ascencio DOS: 01/21/19 Medications: Keppra, insulin, Ecotrin, Lipitor, coreg, pletal, Plavix, Pepcid, feosol, Lasix, porcine, entresto History This is a 68 year old right handed man with a history of internal defibrillator, hypertension, hypercholesterolemia, COPD, GERD, Diabetes, anxiety, tobacco use, right hip surgery, arthritis, chronic kidney disease, PVD. Right femur surgery who was admitted with seizure and possible UTI. This EEG was requested for seizures. EEG Interpretation This EEG was recorded in the awake and mild drowsy states only. The awake EEG is characterized by a fairly attenuated background with a moderately-developed and reactive posterior dominant rhythm of 8.5Hz. There was frequent eye fluttering noted with only the associated artifactual changes on EEG. Drowsiness is characterized by slowing of the background rhythms. Photic stimulation resulted in no significant changes. There were no epileptiform abnormalities. The EKG showed periods of an irregular rhythm. EEG Classification EKG irregular rhythm EEG Impression This EEG is within normal limits for age in the awake and mild drowsy states. The EKG irregular rhythm may require further investigation. INTERPRETING NEUROLOGIST: Aruan Howe MD, FRCPC Board Certified in Neurology, with special qualification in Child Neurology, and in Clinical Neurophysiology [facility] [place] [facility]
[2019-01-21] MEDS: ATORVASTATIN CALCIUM 80 MG TABLET PO SCH (22:10)
[2019-01-22 04:45] LABS: ABSOLUTE RETICS # 0.029 10^6/uL (0.028-0.122); RETICULOCYTE COUNT (AUTO) 0.99 % (0.66-2.85)
[2019-01-22 05:02] LABS: ANION GAP 6 (5-19); BLOOD UREA NITROGEN 33 mg/dL (7-20); CALCIUM 8.5 mg/dL (8.4-10.2); CARBON DIOXIDE 25 mmol/L (22-30); CHLORIDE 112 mmol/L (98-107); GLUCOSE 87 mg/dL (75-110); IRON(TIBC) 89.9 ug/dL (49-181); POTASSIUM 4.3 mmol/L (3.6-5.0)
[2019-01-22 06:15] LABS: FOLATE > 20.00 ng/mL (>2.76)
[2019-01-22] MEDS: HEPARIN SOD (PORCINE) 5,000 UNIT/ML 1 ML VIAL SUBCUT SCH ×3 (06:16→22:25)
[2019-01-22] MEDS: NORMAL SALINE 1000 ML 1,000 ML IV PRN (06:17)
[2019-01-22] MEDS ORDERED: INFLUENZA QUAD (6MOS+) 2019-20 VAC 0.5 ML SYR IM ONE (08:00)
[2019-01-22] MEDS: INSULIN LISPRO 100 UNIT/ML 3 ML VIAL SUBCUT SCH ×4 (08:50→22:23)
--- NOTE | 2019-01-22 09:04 | ST Inp Modified Barium Swallow ---
Medical Diagnosis - Medical Diagnoses Medical Diagnosis Description & ICD-10 Code(s): AMS, seizure - ICD-10 Tx Diagnosis Coding (1) Dysphagia ICD-10 Code(s): R13.10 - DYSPHAGIA, UNSPECIFIED ST Inpatient [facility] [place] - General Date: 01/22/19 Date of Onset: 01/21/19 - order date - History -: Medical - per EMR: patient admitted 01/20 with recurrent seizures. Prior medical history includes COPD, seizures, GERD, ischemic CVA with residual dysarthria. Patient reportedly was receiving home health speech services. Nursing reports that swallow screen was completed, the patient demonstrated coughing immediately with water. Patient reports that he will "get choked" when drinking, states this has been happening since his stroke. He denies any prior swallowing treatment, home therapy appears to have only been working on speech production. At bedside, discoordinated swallow noted. Due to history of CVA, MBSS recommended to further evaluate swallow function Medications: Medications Reviewed Allergies: Refer to medical record - Subjective Current Nutritional Means: PO Current PO Diet: Mechanical- ground, Regular - liquids Current Symptoms: other - failed swallow screen, signs of pharyngeal dysphagia at bedside Pain: Patient reports, 0/5 - Objective Assessment: Upright, Left Lateral - Food Trials Food Trials Used: Thin liquids, Morrice thick liquids, Pureed, Regular The Patient: Required Assist - Assessment Labial Function: Within Functional Limits Lingual Function: Within Functional Limits Mandibular Function: Within Functional Limits Dentition: Partial Velo-Pharyngeal Function: Unremarkable Laryngeal Function: weak voicing - inconsistent voice quality, signs of spastic dysarthria - Pharyngeal Stage Initiation of Pharyngeal Stage: Normal Decreased Laryngeal Elevation: Yes Reduced Velo-Pharyngeal Closure: no Reduced Pressure Generation: No Reduced Tongue Base Retraction: No Pre-Swallowing Pooling in Valleculae: None Pre-Swallowing Pooling in Pyriforms: None Reduced Thyro-Hyiod Approximation: Yes Reduced Epiglottic Excursion: No Reduced Pharyngeal Peristalsis: No Post Swallow Residuals in Valleculae: None Post Swallow Residuals in Pyriforms: None Pahryngeal Stage Comments: Sridhar aspiration of thin liquid seen by cup sip. Patient demonstrated very delayed cough in reaction to aspiration. Aspiration occured during the swallow, as the laryngeal vestibule did not fully close until after the bolus reached this level. Deficits appear to be related more to discoordination versus weakness, as full closure was acheived, and no residue was seen with any trials. - Esophageal Stage Cricophageal Function: Normal - Impression/Summary Laryngeal Penetration: Yes, Silent, during swallow Tracheal Aspiration: yes, delayed cough, during swallow Productive Cough: No Effective Clearing: no Patient Presents With: Pharyngeal stage dysph., Mild-Moderate Risk of Aspiration: Moderate Risk of Nutritional Compromise: WNL - Recommendations Solid Diet Recommendations: Mechanical Soft, Ground Meat Liquid Diet Recommendations: Morrice-Thick Strict Aspitarion Precautions: Yes Dysphagia Therapy with CIGARETTE STAMPER: Yes Recommended Techniques: Fully Upright During Meal, Small Bites and Sips Supervision: requires assistance Other Recommendations: Speech pathology will continue to treat patient acutely for pharyngeal dysphagia, 2-3 times per week next week. Recommend continuing with speech therapy after discharge to address pharyngeal phase dysphagia, may include hard/fast swallows to address timely closure of laryngeal vestibule. Patient was able to tolerate spoon trials of thin liquid with cue for effortful swallow in the study without aspiration. - Time Total Time: 30 Total Timed Minutes: 30
[2019-01-22] MEDS: FUROSEMIDE 40 MG TABLET PO SCH (10:11)
[2019-01-22] MEDS: FAMOTIDINE 20 MG TABLET PO SCH ×2 (10:11→22:23)
[2019-01-22] MEDS: LEVETIRACETAM 500 MG TABLET PO SCH ×2 (10:11→22:22)
[2019-01-22] MEDS: ASPIRIN 81 MG TABLET, ENT COATED PO SCH (10:11)
[2019-01-22] MEDS: FERROUS SULFATE 325 MG TABLET PO SCH (10:11)
[2019-01-22] MEDS: CLOPIDOGREL BISULFATE 75 MG TABLET PO SCH (10:11)
[2019-01-22] MEDS: CARVEDILOL 12.5 MG TABLET PO SCH ×2 (10:11→22:22)
[2019-01-22] MEDS: SACUBITRIL/VALSARTAN 49 MG/51 MG TABLET PO SCH ×2 (10:13→17:56)
[2019-01-22] MEDS: CILOSTAZOL 100 MG TABLET PO SCH ×2 (10:13→16:50)
[2019-01-22] MEDS: INSULIN GLARGINE,HUM.REC.ANLOG 1,000 UNIT/10 ML VIAL SUBCUT SCH (10:31)
[2019-01-22] MEDS: FERROUS SULFATE LIQUID 300 MG/5 ML UDC PO SCH (11:49)
--- NOTE | 2019-01-22 12:00 | RADIOLOGY REPORT (SQ) ---
EXAM DESCRIPTION: LANDRY SWALLOW COMPLETED DATE/TIME: 01/22/2019 11:47 am REASON FOR STUDY: CVA aspiration pneumonia COMPARISON: None. TECHNIQUE: Videofluoroscopic swallowing examination was performed in conjunction with speech patholo gy. Videofluoroscopic imaging was obtained and reviewed and these are the findings: RADIATION DOSE: 1 minutes 33 seconds of fluoroscopy was used. 1 images saved to PACS. LIMITATIONS: None FINDINGS: The patient was brought into the fluoro room and placed upright on a modified barium swall ow chair. The patient was then given multiple consistencies mixed with barium to swallow under live fluoroscopic video guidance. According to the Speech Pathologist there was laryngeal penetration and aspiration of thin liquids. Other consistencies swallowed without incidence. IMPRESSION: LARYNGEAL PENETRATION AND ASPIRATION OF THIN LIQUIDS. . PLEASE SEE SPEECH PATHOLOGIST Guanakito NAVARRO FOR OTHER FINDINGS AND RECOMMENDATIONS. COMMENT: Quality ID [id number]: Final reports for procedures using fluoroscopy that document radiation exp osure indices, or exposure time and number of fluorographic images (if radiation exposure indices are not available) TECHNICAL DOCUMENTATION: JOB ID: [id number] [employer]- All Rights Reserved Reading location - IP/workstation name: [email or web address] [id number]
--- NOTE | 2019-01-22 12:39 | PDOC PROGRESS REPORT ---
Subjective Progress Note for:: 01/22/19 Subjective:: 01/21/2019. Patient was admitted yesterday through the emergency room for recurrent seizures. Patient was being treated for UTI and possibly the medication he was on, Bactrim and Cipro for his seizure threshold. Patient presented to the ER for having a seizure at home. She also had a seizure in the ER that lasted 4 to 5 minutes. Patient is on Keppra 500 mg twice daily 01/22/2019 modified swallow study shows moderate risk of aspiration recommended mechanical soft ground meat with nectar thick diet Appreciate nephrology's and speech consult. No further seizure activity. Patient is getting close to being back at his baseline neurologically. Reason For Visit: SEIZURE,POSSIBLE RECURRENT UTI,ACUTE ON CHRONIC Physical Exam Vital Signs: Temp Pulse Resp BP Pulse Ox 97.9 F 66 16 147/74 H 97 01/21/19 23:42 01/22/19 08:00 01/22/19 08:00 01/21/19 23:42 01/22/19 08:00 Intake & Output 01/21/19 01/22/19 01/23/19 06:59 06:59 06:59 Intake Total 160 2240 Output Total 400 2600 Balance -240 -360 Weight 84.6 kg 85.2 kg General appearance: PRESENT: no acute distress Respiratory exam: PRESENT: clear to auscultation nathan. ABSENT: rales, rhonchi, wheezes Cardiovascular exam: PRESENT: RRR. ABSENT: diastolic murmur, rubs, systolic murmur Neurological exam: PRESENT: alert, awake, oriented to person, oriented to place, oriented to time, oriented to situation, CN II-XII grossly intact, other - Patient has difficulty with expressive ability, however if he talks slow he is understandable.. ABSENT: motor sensory deficit Psychiatric exam: PRESENT: appropriate affect, normal mood. ABSENT: homicidal ideation, suicidal ideation Results Laboratory Results: 01/21/19 03:56 01/22/19 03:51 01/22/19 01/22/19 03:51 03:51 Retic Count (auto) 0.99 Sodium 142.8 Potassium 4.3 Chloride 112 H Carbon Dioxide 25 Anion Gap 6 BUN 33 H Creatinine 2.53 H Est GFR ( Amer) 31 L Glucose 87 Calcium 8.5 Iron 89.9 TIBC 213 L % Saturation 42 Ferritin 386.00 Vitamin B12 779.0 Folate > 20.00 01/21/19 03:56 NT-Pro-B Natriuret Pep 422 Impressions: Head CT 01/20/19 14:52 IMPRESSION: No acute intracranial pathology. Unchanged right occipital infarction. EVIDENCE OF ACUTE STROKE: NO. Chest X-Ray 01/20/19 14:53 IMPRESSION: NO SIGNIFICANT RADIOGRAPHIC FINDING IN THE CHEST. Modified Barium Swallow 01/22/19 00:00 IMPRESSION: LARYNGEAL PENETRATION AND ASPIRATION OF THIN LIQUIDS. . PLEASE SEE SPEECH PATHOLOGIST REPORT FOR OTHER FINDINGS AND RECOMMENDATIONS. Assessment and Plan - Diagnosis (1) Acute kidney injury superimposed on chronic kidney disease Is this a current diagnosis for this admission?: Yes (2) Dysarthria Is this a current diagnosis for this admission?: Yes (3) Dehydration Is this a current diagnosis for this admission?: Yes (4) HTN (hypertension) Qualifiers: Hypertension type: essential hypertension Qualified Code(s): I10 - Essential (primary) hypertension Is this a current diagnosis for this admission?: Yes (5) Seizure Is this a current diagnosis for this admission?: Yes (6) Urinary tract infection Qualifiers: Urinary tract infection type: site unspecified Hematuria presence: without hematuria Qualified Code(s): N39.0 - Urinary tract infection, site not specified Is this a current diagnosis for this admission?: Yes - Plan Summary Summary: Seizure disorder-family states that the patient had a seizure at home and refused to come to the emergency department. He did go to the primary care office and they referred him to the emergency department. When he arrived he had a seizure in the emergency department as well. The initial seizure lasted approximately 4 to 5 minutes. Second seizure lasted approximately 1 minute. Family reports that the eyes rolled into the back of his head. There was no tonic-clonic activity but he does have a blank stare and did not respond to stimuli. He does have a history of seizures. He is currently on Keppra 500 mg twice daily which is in fact, considering his renal failure, is at the upper end of the treatment range. We will continue the 500 mg twice daily. I have ordered an EEG as well. The seizures could be related to a previous infarct which is the most likely cause. In addition the family does report that at home his blood pressure reached systolic of greater than 200 and this could certainly cause seizure as well. CT scan of the brain reveals right occipital encephalomalacia from previous stroke but no acute infarct. Acute on chronic kidney failure-the patient's GFR today is 19. He is usually a stage III kidney failure. Most likely etiology is diabetes however he also has hypertension. His material movers, Dr. Taylor, is aware that he is coming to the emergency department and I will ask him to consult on the patient. I do believe the patient is dry. Is been taking Lasix 40 mg twice daily. He does have 18 hyaline casts per low power field in his urine. I will change his Lasix to once daily starting tomorrow and I will administer 1 L of fluid tonight. Acute urinary tract infection-the patient was just discharged last week with acute urinary infection. He was on Bactrim and ciprofloxacin. Urinalysis does show white cells with trace bacteria and budding yeast. He did not complete his antibiotic therapy from recent discharge as it was felt the antibiotics were causing altered mental status. He has been off of the antibiotics since Friday. Urine and blood cultures have been requested. Hypertension-in the emergency department his blood pressure was in fact normal. We will continue his current regimen (verified from the prescription bottles brought in by the family) with parameters to hold for low pulse or low blood pressure. Altered mental status-the patient was post-ictal and this likely was the main reason for the encephalopathy. He in fact is back at his baseline at this time. Other contributing factors would be the acute on chronic kidney failure and possible recurrent cystitis. Sub-conjunctival hemorrhage right eye-most likely from acute spike in blood pressure. The family reports no coughing. He did not exhibit tonic clonic activity. We will apply eyedrops for moisture. Continue to monitor blood pressure. Pressure ulcer left heel. The patient is seeing Dr. Aggarwal at the wound care center. He does have an appointment tomorrow. I will reach out to Dr. Aggarwal and see if he would consider consult at this facility. We will use Xeroform and gauze for now. We do not have collagen products and so simple dressings will have to suffice. The patient did have Doppler studies of his legs and there is decreased circulation. See discussion below. Peripheral arterial disease-Doppler studies show normal waveform and flow from the femoral to popliteal arteries. After the popliteal arteries there is diminished circulation in each leg. There is decreased flow and on the right leg there was no posterior tibial circulation identifiable. We will continue Plavix and Pletal at this time. He is also on statin therapy. Chronic diastolic heart failure-in 2019 the echocardiogram revealed an ejection fraction of 60% with 1/4 diastolic failure and mild mitral regurgitation and trace tricuspid regurgitation. We will continue his current regimen which includes Coreg, Entresto, furosemide as well as the Plavix, Pletal and atorvastatin. He is also on 81 mg of aspirin daily. We will monitor intake and output. Because I believe he is on the dry side I will hold furosemide tonight. He will get 1 L of IV fluids and will resume furosemide at 40 mg once daily starting tomorrow. Diabetes mellitus type 2-we will continue Lantus 15 units each morning and sliding scale coverage. He will be on a diabetic cardiac diet. Dysarthria-this is from his recent ischemic stroke. He states that his tongue feels like it is getting cut or feels like a piece of meat. His tongue is not swollen but it does appear dry. It also affects his speech. He has been getting physical therapy and speech therapy at home. We will continue these therapeutic modalities as an inpatient. 01/21/2019 patient CBC appears to be normal, sodium 142 potassium 4.6 BUN is elevated at 42 creatinine 3.54 GFR is 21. Renal functions are slightly better than yesterday not much. Her graph hemoglobin A1c is 6.6 calcium 8.4 phosphorus 3.2 magnesium slightly high at 2.5 albumin low at 3.2. Urinalysis shows moderate leukocytes ,urine and blood cultures are pending. Chest x-ray from yesterday is negative. CT head scan showed an old infarct in the right occipital region but no acute stroke Appears as though patient suffered a breakthrough and his seizure disorder and will check a Keppra level. Treat him for UTI 01/22/2019 Vital signs today are stable patient's O2 sat 97% on room air pulse is 66 and regular. Blood pressure approximately 150/80. Patient remains afebrile CBC shows a normal white count H&H is stable accounting for hydration. BUN on admission was 44 today is 33, creatinine on admission was 3.8 today is 2.5 Keppra level is pending. Patient currently taking Keppra 500 every 12 hours. Currently no antibiotics - Time Time Spent with patient: 25-34 minutes
--- NOTE | 2019-01-22 14:53 | PDOC PROGRESS REPORT ---
Subjective Progress Note for:: 01/22/19 Reason For Visit: Patient seen today. He generally feeling better. Labs and medications were reviewed. ShHe denies any chest pain or shortness of breath. Physical Exam Vital Signs: Temp Pulse Resp BP Pulse Ox 97.9 F 66 16 147/74 H 97 01/21/19 23:42 01/22/19 08:00 01/22/19 08:00 01/21/19 23:42 01/22/19 08:00 Intake & Output 01/21/19 01/22/19 01/23/19 06:59 06:59 06:59 Intake Total 160 2240 Output Total 400 2600 Balance -240 -360 Weight 84.6 kg 85.2 kg General appearance: PRESENT: no acute distress Respiratory exam: PRESENT: clear to auscultation nathan. ABSENT: crackles Cardiovascular exam: PRESENT: +S1, +S2 GI/Abdominal exam: PRESENT: normal bowel sounds, organomegaly, soft. ABSENT: tenderness Extremities exam: ABSENT: pedal edema Neurological exam: PRESENT: alert, awake, oriented to person, oriented to place Psychiatric exam: PRESENT: appropriate affect Results Laboratory Results: 01/21/19 03:56 01/22/19 03:51 01/22/19 01/22/19 03:51 03:51 Retic Count (auto) 0.99 Sodium 142.8 Potassium 4.3 Chloride 112 H Carbon Dioxide 25 Anion Gap 6 BUN 33 H Creatinine 2.53 H Est GFR ( Amer) 31 L Glucose 87 Calcium 8.5 Iron 89.9 TIBC 213 L % Saturation 42 Ferritin 386.00 Vitamin B12 779.0 Folate > 20.00 01/20/19 15:30 Clean Catch Midstream Urine Culture - Final C.albicans/C.dubliniensis 01/21/19 03:56 NT-Pro-B Natriuret Pep 422 Impressions: Head CT 01/20/19 14:52 IMPRESSION: No acute intracranial pathology. Unchanged right occipital infarction. EVIDENCE OF ACUTE STROKE: NO. Chest X-Ray 01/20/19 14:53 IMPRESSION: NO SIGNIFICANT RADIOGRAPHIC FINDING IN THE CHEST. Modified Barium Swallow 01/22/19 00:00 IMPRESSION: LARYNGEAL PENETRATION AND ASPIRATION OF THIN LIQUIDS. . PLEASE SEE SPEECH PATHOLOGIST REPORT FOR OTHER FINDINGS AND RECOMMENDATIONS. Assessment & Plan - Diagnosis (1) Acute worsening of stage 3 chronic kidney disease Is this a current diagnosis for this admission?: Yes Plan: Nonoliguric. Showing improving renal numbers. Renal ultrasound reviewed does not show any obstructive uropathy. Continue present lines of management. (2) Altered mental status Qualifiers: Altered mental status type: transient alteration of awareness Qualified Code(s): R40.4 - Transient alteration of awareness Is this a current diagnosis for this admission?: Yes Plan: Improving with current treatments. Stay the course. (3) Diabetes Qualifiers: Diabetes mellitus type: type 2 Diabetes mellitus long term care social worker insulin use: with long term care social worker use Diabetes mellitus complication status: with kidney complications Diabetes mellitus complication detail: with chronic kidney disease Chronic kidney disease stage: stage 3 (moderate) Qualified Code(s): E11.22 - Type 2 diabetes mellitus with diabetic chronic kidney disease; N18.3 - Chronic kidney disease, stage 3 (moderate); Z79.4 - ferry terminal agent (current) use of insulin Plan: Advised on tight diabetic control. (4) Anemia Qualifiers: Anemia type: due to chronic kidney disease Chronic kidney disease stage: stage 3 (moderate) Qualified Code(s): N18.3 - Chronic kidney disease, stage 3 (moderate); D63.1 - Anemia in chronic kidney disease; D63.1 - Anemia in chronic kidney disease Plan: Of chronic kidney disease. Iron indicis adequate. Start erythropoietin. Discussed on adverse effects and willing to proceed. (5) Diastolic CHF Qualifiers: Heart failure chronicity: chronic Qualified Code(s): I50.32 - Chronic di astolic (congestive) heart failure Plan: Stable and compensated for now. (6) History of CVA with residual deficit Plan: Status quo. (7) Seizure disorder Plan: Was postictal on admission and now improving. As per hospitalist.
--- NOTE | 2019-01-22 18:42 | RADIOLOGY REPORT (SQ) ---
EXAM DESCRIPTION: [facility]/[employer] COMPLETED DATE/TIME: 01/22/2019 5:45 pm REASON FOR STUDY: CARL COMPARISON: CT abdomen pelvis 11/24/2018 TECHNIQUE: Dynamic and static grayscale images acquired of the kidneys and bladder and recorded on P ACS. Additional selected color Doppler and spectral images recorded. LIMITATIONS: Bowel gas shadowing FINDINGS: RIGHT KIDNEY: Normal size, 9.5 cm in length. Normal echogenicity. No solid or suspici ous masses. No hydronephrosis. No calcifications. LEFT KIDNEY: Normal size, 10.3 cm in length. Normal echogenicity. No solid or suspicious masses. No hydronephrosis. No calcifications. BLADDER: No masses. OTHER FINDINGS: No other significant finding. IMPRESSION: NORMAL RENAL AND BLADDER ULTRASOUND. TECHNICAL DOCUMENTATION: JOB ID: [id number] [employer]- All Rights Reserved Reading location - IP/workstation name: [email or web address]
[2019-01-22] MEDS: ATORVASTATIN CALCIUM 80 MG TABLET PO SCH (22:23)
[2019-01-23] MEDS ORDERED: MAGNESIUM HYDROXIDE SUSP 30 ML UDCUP PO PRN (04:42)
[2019-01-23] MEDS ORDERED: DOCUSATE SODIUM 100 MG/10 ML UDC PO PRN (04:43)
[2019-01-23] MEDS ORDERED: EPOETIN ALFA-EPBX 20,000 UNITS (ESRD) in SYRINGE IV PRN (05:00)
[2019-01-23] MEDS: NORMAL SALINE 1000 ML 1,000 ML IV PRN ×2 (06:29→18:15)
[2019-01-23] MEDS: HEPARIN SOD (PORCINE) 5,000 UNIT/ML 1 ML VIAL SUBCUT SCH ×3 (06:29→21:28)
[2019-01-23] MEDS: INSULIN LISPRO 100 UNIT/ML 3 ML VIAL SUBCUT SCH ×4 (08:57→21:41)
[2019-01-23] MEDS ORDERED: EPOETIN ALFA-EPBX 10,000 UNIT/ML VIAL (RENAL) SUBCUT ONE (09:00)
[2019-01-23] MEDS: CILOSTAZOL 100 MG TABLET PO SCH ×2 (09:03→16:44)
[2019-01-23] MEDS: CARVEDILOL 12.5 MG TABLET PO SCH ×2 (11:19→21:28)
[2019-01-23] MEDS: FERROUS SULFATE LIQUID 300 MG/5 ML UDC PO SCH (11:19)
[2019-01-23] MEDS: SACUBITRIL/VALSARTAN 49 MG/51 MG TABLET PO SCH ×2 (11:20→18:15)
[2019-01-23] MEDS: LEVETIRACETAM 500 MG TABLET PO SCH ×2 (11:20→21:28)
[2019-01-23] MEDS: FUROSEMIDE 40 MG TABLET PO SCH (11:20)
[2019-01-23] MEDS: ASPIRIN 81 MG TABLET, ENT COATED PO SCH (11:20)
[2019-01-23] MEDS: FAMOTIDINE 20 MG TABLET PO SCH ×2 (11:21→21:28)
[2019-01-23] MEDS: CLOPIDOGREL BISULFATE 75 MG TABLET PO SCH (11:21)
[2019-01-23] MEDS: INSULIN GLARGINE,HUM.REC.ANLOG 1,000 UNIT/10 ML VIAL SUBCUT SCH (11:21)
--- NOTE | 2019-01-23 12:00 | PDOC PROGRESS REPORT ---
Subjective Progress Note for:: 01/23/19 Subjective:: 01/21/2019. Patient was admitted yesterday through the emergency room for recurrent seizures. Patient was being treated for UTI and possibly the medication he was on, Bactrim and Cipro for his seizure threshold. Patient presented to the ER for having a seizure at home. She also had a seizure in the ER that lasted 4 to 5 minutes. Patient is on Keppra 500 mg twice daily 01/22/2019 modified swallow study shows moderate risk of aspiration recommended mechanical soft ground meat with nectar thick diet Appreciate nephrology's and speech consult. No further seizure activity. Patient is getting close to being back at his baseline neurologically. 01/23/2019 Patient's vital signs are stable O2 sat 96% pulse of 60. Labs are improving we will continue IV fluids Reason For Visit: SEIZURE,POSSIBLE RECURRENT UTI,ACUTE ON CHRONIC Physical Exam Vital Signs: Temp Pulse Resp BP Pulse Ox 98.2 F 55 L 17 147/72 H 96 01/23/19 07:14 01/23/19 07:14 01/23/19 07:14 01/23/19 07:14 01/23/19 07:14 Intake & Output 01/22/19 01/23/19 01/24/19 06:59 06:59 06:59 Intake Total 2240 1480 Output Total 2600 375 Balance -360 1105 Weight 85.2 kg 86.2 kg General appearance: PRESENT: no acute distress Respiratory exam: PRESENT: clear to auscultation nathan. ABSENT: rales, rhonchi, wheezes Cardiovascular exam: PRESENT: RRR. ABSENT: diastolic murmur, rubs, systolic murmur Neurological exam: PRESENT: alert, awake, oriented to person, oriented to place, oriented to time, oriented to situation, CN II-XII grossly intact. ABSENT: motor sensory deficit Psychiatric exam: PRESENT: appropriate affect, normal mood, other - Patient has had no further seizures. ABSENT: homicidal ideation, suicidal ideation Results Laboratory Results: 01/21/19 03:56 01/22/19 03:51 01/20/19 15:30 Clean Catch Midstream Urine Culture - Final C.albicans/C.dubliniensis 01/21/19 03:56 NT-Pro-B Natriuret Pep 422 Impressions: Head CT 01/20/19 14:52 IMPRESSION: No acute intracranial pathology. Unchanged right occipital infarction. EVIDENCE OF ACUTE STROKE: NO. Chest X-Ray 01/20/19 14:53 IMPRESSION: NO SIGNIFICANT RADIOGRAPHIC FINDING IN THE CHEST. Modified Barium Swallow 01/22/19 00:00 IMPRESSION: LARYNGEAL PENETRATION AND ASPIRATION OF THIN LIQUIDS. . PLEASE SEE SPEECH PATHOLOGIST REPORT FOR OTHER FINDINGS AND RECOMMENDATIONS. Renal Ultrasound 01/22/19 00:00 IMPRESSION: NORMAL RENAL AND BLADDER ULTRASOUND. Assessment and Plan - Diagnosis (1) Acute kidney injury superimposed on chronic kidney disease Is this a current diagnosis for this admission?: Yes (2) Dysarthria Is this a current diagnosis for this admission?: Yes (3) Dehydration Is this a current diagnosis for this admission?: Yes (4) HTN (hypertension) Qualifiers: Hypertension type: essential hypertension Qualified Code(s): I10 - Essential (primary) hypertension Is this a current diagnosis for this admission?: Yes (5) Seizure Is this a current diagnosis for this admission?: Yes (6) Urinary tract infection Qualifiers: Urinary tract infection type: site unspecified Hematuria presence: without hematuria Qualified Code(s): N39.0 - Urinary tract infection, site not specified Is this a current diagnosis for this admission?: Yes - Plan Summary Summary: Seizure disorder-family states that the patient had a seizure at home and refused to come to the emergency department. He did go to the primary care office and they referred him to the emergency department. When he arrived he had a seizure in the emergency department as well. The initial seizure lasted approximately 4 to 5 minutes. Second seizure lasted approximately 1 minute. Family reports that the eyes rolled into the back of his head. There was no tonic-clonic activity but he does have a blank stare and did not respond to stimuli. He does have a history of seizures. He is currently on Keppra 500 mg twice daily which is in fact, considering his renal failure, is at the upper end of the treatment range. We will continue the 500 mg twice daily. I have ordered an EEG as well. The seizures could be related to a previous infarct which is the most likely cause. In addition the family does report that at home his blood pressure reached systolic of greater than 200 and this could certainly cause seizure as well. CT scan of the brain reveals right occipital encephalomalacia from previous stroke but no acute infarct. Acute on chronic kidney failure-the patient's GFR today is 19. He is usually a stage III kidney failure. Most likely etiology is diabetes however he also has hypertension. His proof technician helper, Dr. Taylor, is aware that he is coming to the emergency department and I will ask him to consult on the patient. I do believe the patient is dry. Is been taking Lasix 40 mg twice daily. He does have 18 hyaline casts per low power field in his urine. I will change his Lasix to once daily starting tomorrow and I will administer 1 L of fluid tonight. Acute urinary tract infection-the patient was just discharged last week with acute urinary infection. He was on Bactrim and ciprofloxacin. Urinalysis does show white cells with trace bacteria and budding yeast. He did not complete his antibiotic therapy from recent discharge as it was felt the antibiotics were causing altered mental status. He has been off of the antibiotics since Friday. Urine and blood cultures have been requested. Hypertension-in the emergency department his blood pressure was in fact normal. We will continue his current regimen (verified from the prescription bottles brought in by the family) with parameters to hold for low pulse or low blood pressure. Altered mental status-the patient was post-ictal and this likely was the main reason for the encephalopathy. He in fact is back at his baseline at this time. Other contributing factors would be the acute on chronic kidney failure and possible recurrent cystitis. Sub-conjunctival hemorrhage right eye-most likely from acute spike in blood pres sure. The family reports no coughing. He did not exhibit tonic clonic activity. We will apply eyedrops for moisture. Continue to monitor blood pressure. Pressure ulcer left heel. The patient is seeing Dr. Aggarwal at the wound care center. He does have an appointment tomorrow. I will reach out to Dr. Aggarwal and see if he would consider consult at this facility. We will use Xeroform and gauze for now. We do not have collagen products and so simple dressings will have to suffice. The patient did have Doppler studies of his legs and there is decreased circulation. See discussion below. Peripheral arterial disease-Doppler studies show normal waveform and flow from the femoral to popliteal arteries. After the popliteal arteries there is diminished circulation in each leg. There is decreased flow and on the right leg there was no posterior tibial circulation identifiable. We will continue Plavix and Pletal at this time. He is also on statin therapy. Chronic diastolic heart failure-in 2019 the echocardiogram revealed an ejection fraction of 60% with 1/4 diastolic failure and mild mitral regurgitation and trace tricuspid regurgitation. We will continue his current regimen which includes Coreg, Entresto, furosemide as well as the Plavix, Pletal and atorvastatin. He is also on 81 mg of aspirin daily. We will monitor intake and output. Because I believe he is on the dry side I will hold furosemide tonight. He will get 1 L of IV fluids and will resume furosemide at 40 mg once daily starting tomorrow. Diabetes mellitus type 2-we will continue Lantus 15 units each morning and sliding scale coverage. He will be on a diabetic cardiac diet. Dysarthria-this is from his recent ischemic stroke. He states that his tongue feels like it is getting cut or feels like a piece of meat. His tongue is not swollen but it does appear dry. It also affects his speech. He has been getting physical therapy and speech therapy at home. We will continue these therapeutic modalities as an inpatient. 01/21/2019 patient CBC appears to be normal, sodium 142 potassium 4.6 BUN is elevated at 42 creatinine 3.54 GFR is 21. Renal functions are slightly better than yesterday not much. Her graph hemoglobin A1c is 6.6 calcium 8.4 phosphorus 3.2 magnesium slightly high at 2.5 albumin low at 3.2. Urinalysis shows moderate leukocytes ,urine and blood cultures are pending. Chest x-ray from yesterday is negative. CT head scan showed an old infarct in the right occipital region but no acute stroke Appears as though patient suffered a breakthrough and his seizure disorder and w ill check a Keppra level. Treat him for UTI 01/22/2019 Vital signs today are stable patient's O2 sat 97% on room air pulse is 66 and regular. Blood pressure approximately 150/80. Patient remains afebrile CBC shows a normal white count H&H is stable accounting for hydration. BUN on admission was 44 today is 33, creatinine on admission was 3.8 today is 2.5 Keppra level is pending. Patient currently taking Keppra 500 every 12 hours. Currently no antibiotics 01/23/2019 he has had no further seizures vital signs are stable glucose levels are stable Keppra level is 45 which is on the high side of normal. Will not change his dosage. Urine culture shows Sienna albicans, patient does not have a Sullivan and does not appear to be symptomatic therefore will not treat this. anticipate discharge next day or 2 - Time Time Spent with patient: 25-34 minutes
[2019-01-23] MEDS ORDERED: MAGNESIUM CITRATE 296 ML BOTTLE PO ONE (14:03)
[2019-01-23] MEDS ORDERED: POLYETHYLENE GLYCOL 3350 POWDER 17 GM/1 PACKET PO ONE (18:00)
[2019-01-23] MEDS: ATORVASTATIN CALCIUM 80 MG TABLET PO SCH (21:28)
[2019-01-24] MEDS: HEPARIN SOD (PORCINE) 5,000 UNIT/ML 1 ML VIAL SUBCUT SCH ×3 (05:17→21:48)
[2019-01-24] MEDS: INSULIN LISPRO 100 UNIT/ML 3 ML VIAL SUBCUT SCH ×4 (07:39→21:46)
[2019-01-24] MEDS: CILOSTAZOL 100 MG TABLET PO SCH ×2 (07:39→15:47)
[2019-01-24] MEDS: NORMAL SALINE 1000 ML 1,000 ML IV PRN ×2 (07:46→20:45)
[2019-01-24] MEDS: FUROSEMIDE 40 MG TABLET PO SCH (09:54)
[2019-01-24] MEDS: INSULIN GLARGINE,HUM.REC.ANLOG 1,000 UNIT/10 ML VIAL SUBCUT SCH (09:54)
[2019-01-24] MEDS: ASPIRIN 81 MG TABLET, ENT COATED PO SCH (09:55)
[2019-01-24] MEDS: CLOPIDOGREL BISULFATE 75 MG TABLET PO SCH (09:55)
[2019-01-24] MEDS: CARVEDILOL 12.5 MG TABLET PO SCH ×2 (09:55→21:48)
[2019-01-24] MEDS: LEVETIRACETAM 500 MG TABLET PO SCH ×2 (09:55→21:48)
[2019-01-24] MEDS: SACUBITRIL/VALSARTAN 49 MG/51 MG TABLET PO SCH ×2 (09:55→17:24)
[2019-01-24] MEDS: FAMOTIDINE 20 MG TABLET PO SCH ×2 (09:55→21:48)
[2019-01-24] MEDS: FERROUS SULFATE LIQUID 300 MG/5 ML UDC PO SCH (09:55)
--- NOTE | 2019-01-24 11:23 | PDOC PROGRESS REPORT ---
Subjective Progress Note for:: 01/24/19 Subjective:: 01/21/2019. Patient was admitted yesterday through the emergency room for recurrent seizures. Patient was being treated for UTI and possibly the medication he was on, Bactrim and Cipro for his seizure threshold. Patient presented to the ER for having a seizure at home. She also had a seizure in the ER that lasted 4 to 5 minutes. Patient is on Keppra 500 mg twice daily 01/22/2019 modified swallow study shows moderate risk of aspiration recommended mechanical soft ground meat with nectar thick diet Appreciate nephrology's and speech consult. No further seizure activity. Patient is getting close to being back at his baseline neurologically. 01/23/2019 Patient's vital signs are stable O2 sat 96% pulse of 60. Labs are improving we will continue IV fluids 01/24/2019 he is lying in bed with the covers up over his head talking to me through the covers. Patient had a large bowel movement yesterday and feels much better no sign of seizure activity. Patient remains hemodynamically stable we will repeat CBC and Lacy panel today Finger stick glucose runs anywhere from 90-267. Urine culture was never ordered so this was ordered today as urgent She was seen by discharge planning 2 days ago. It appears as though patient is going back home so anticipate discharge possibly tomorrow. He will go home on his Keppra and possibly an antibiotic No functions are improving greatly with fluids. A1c was rather well controlled at 6.7 on admission Reason For Visit: SEIZURE,POSSIBLE RECURRENT UTI,ACUTE ON CHRONIC Physical Exam Vital Signs: Temp Pulse Resp BP Pulse Ox 98.3 F 76 16 127/60 H 97 01/24/19 07:07 01/24/19 07:07 01/24/19 07:07 01/24/19 07:07 01/24/19 07:07 Intake & Output 01/23/19 01/24/19 01/25/19 06:59 06:59 06:59 Intake Total 1480 1579 1000 Output Total 375 625 Balance 6608 152 9705 Weight 86.2 kg 75.4 kg Results Laboratory Results: 01/21/19 03:56 01/22/19 03:51 01/21/19 03:56 NT-Pro-B Natriuret Pep 422 Impressions: Head CT 01/20/19 14:52 IMPRESSION: No acute intracranial pathology. Unchanged right occipital infarction. EVIDENCE OF ACUTE STROKE: NO. Chest X-Ray 01/20/19 14:53 IMPRESSION: NO SIGNIFICANT RADIOGRAPHIC FINDING IN THE CHEST. Modified Barium Swallow 01/22/19 00:00 IMPRESSION: LARYNGEAL PENETRATION AND ASPIRATION OF THIN LIQUIDS. . PLEASE SEE SPEECH PATHOLOGIST REPORT FOR OTHER FINDINGS AND RECOMMENDATIONS. Renal Ultrasound 01/22/19 00:00 IMPRESSION: NORMAL RENAL AND BLADDER ULTRASOUND. Assessment and Plan - Diagnosis (1) Acute kidney injury superimposed on chronic kidney disease Is this a current diagnosis for this admission?: Yes (2) Dysarthria Is this a current diagnosis for this admission?: Yes (3) Dehydration Is this a current diagnosis for this admission?: Yes (4) HTN (hypertension) Qualifiers: Hypertension type: essential hypertension Qualified Code(s): I10 - Essential (primary) hypertension Is this a current diagnosis for this admission?: Yes (5) Seizure Is this a current diagnosis for this admission?: Yes (6) Urinary tract infection Qualifiers: Urinary tract infection type: site unspecified Hematuria presence: without hematuria Qualified Code(s): N39.0 - Urinary tract infection, site not specified Is this a current diagnosis for this admission?: Yes - Plan Summary Summary: Seizure disorder-family states that the patient had a seizure at home and refused to come to the emergency department. He did go to the primary care office and they referred him to the emergency department. When he arrived he had a seizure in the emergency department as well. The initial seizure lasted approximately 4 to 5 minutes. Second seizure lasted approximately 1 minute. Family reports that the eyes rolled into the back of his head. There was no tonic-clonic activity but he does have a blank stare and did not respond to stimuli. He does have a history of seizures. He is currently on Keppra 500 mg twice daily which is in fact, considering his renal failure, is at the upper end of the treatment range. We will continue the 500 mg twice daily. I have ordered an EEG as well. The seizures could be related to a previous infarct which is the most likely cause. In addition the family does report that at home his blood pressure reached systolic of greater than 200 and this could certainly cause seizure as well. CT scan of the brain reveals right occipital encephalomalacia from previous stroke but no acute infarct. Acute on chronic kidney failure-the patient's GFR today is 19. He is usually a stage III kidney failure. Most likely etiology is diabetes however he also has hypertension. His preform machine operator, Dr. Taylor, is aware that he is coming to the emergency department and I will ask him to consult on the patient. I do believe the patient is dry. Is been taking Lasix 40 mg twice daily. He does have 18 hyaline casts per low power field in his urine. I will change his Lasix to once daily starting tomorrow and I will administer 1 L of fluid tonight. Acute urinary tract infection-the patient was just discharged last week with acute urinary infection. He was on Bactrim and ciprofloxacin. Urinalysis does show white cells with trace bacteria and budding yeast. He did not complete his antibiotic therapy from recent discharge as it was felt the antibiotics were causing altered mental status. He has been off of the antibiotics since Friday. Urine and blood cultures have been requested. Hypertension-in the emergency department his blood pressure was in fact normal. We will continue his current regimen (verified from the prescription bottles brought in by the family) with parameters to hold for low pulse or low blood pressure. Altered mental status-the patient was post-ictal and this likely was the main reason for the encephalopathy. He in fact is back at his baseline at this time. Other contributing factors would be the acute on chronic kidney failure and possible recurrent cystitis. Sub-conjunctival hemorrhage right eye-most likely from acute spike in blood pressure. The family reports no coughing. He did not exhibit tonic clonic activity. We will apply eyedrops for moisture. Continue to monitor blood pressure. Pressure ulcer left heel. The patient is seeing Dr. Aggarwal at the wound care center. He does have an appointment tomorrow. I will reach out to Dr. Aggarwal and see if he would consider consult at this facility. We will use Xeroform and gauze for now. We do not have collagen products and so simple dressings will have to suffice. The patient did have Doppler studies of his legs and there is decreased circulation. See discussion below. Peripheral arterial disease-Doppler studies show normal waveform and flow from the femoral to popliteal arteries. After the popliteal arteries there is diminished circulation in each leg. There is decreased flow and on the right leg there was no posterior tibial circulation identifiable. We will continue Plavix and Pletal at this time. He is also on statin therapy. Chronic diastolic heart failure-in 2019 the echocardiogram revealed an ejection fraction of 60% with 1/4 diastolic failure and mild mitral regurgitation and trace tricuspid regurgitation. We will continue his current regimen which includes Coreg, Entresto, furosemide as well as the Plavix, Pletal and atorvastatin. He is also on 81 mg of aspirin daily. We will monitor intake and output. Because I believe he is on the dry side I will hold furosemide tonight. He will get 1 L of IV fluids and will resume furosemide at 40 mg once daily starting tomorrow. Diabetes mellitus type 2-we will continue Lantus 15 units each morning and sliding scale coverage. He will be on a diabetic cardiac diet. Dysarthria-this is from his recent ischemic stroke. He states that his tongue feels like it is getting cut or feels like a piece of meat. His tongue is not swollen but it does appear dry. It also affects his speech. He has been getting physical therapy and speech therapy at home. We will continue these therapeutic modalities as an inpatient. 01/21/2019 patient CBC appears to be normal, sodium 142 potassium 4.6 BUN is shira vated at 42 creatinine 3.54 GFR is 21. Renal functions are slightly better than yesterday not much. Her graph hemoglobin A1c is 6.6 calcium 8.4 phosphorus 3.2 magnesium slightly high at 2.5 albumin low at 3.2. Urinalysis shows moderate leukocytes ,urine and blood cultures are pending. Chest x-ray from yesterday is negative. CT head scan showed an old infarct in the right occipital region but no acute stroke Appears as though patient suffered a breakthrough and his seizure disorder and will check a Keppra level. Treat him for UTI 01/22/2019 Vital signs today are stable patient's O2 sat 97% on room air pulse is 66 and regular. Blood pressure approximately 150/80. Patient remains afebrile CBC shows a normal white count H&H is stable accounting for hydration. BUN on admission was 44 today is 33, creatinine on admission was 3.8 today is 2.5 Keppra level is pending. Patient currently taking Keppra 500 every 12 hours. Currently no antibiotics 01/23/2019 he has had no further seizures vital signs are stable glucose levels are stable Keppra level is 45 which is on the high side of normal. Will not change his dosage. Urine culture shows Sienna albicans, patient does not have a Sullivan and does not appear to be symptomatic therefore will not treat this. anticipate discharge next day or 2 01/24/2019 see the note dictated at the beginning of this day's progress note Urine culture pending - Time Time Spent with patient: 25-34 minutes
[2019-01-24] MEDS: ATORVASTATIN CALCIUM 80 MG TABLET PO SCH (21:48)
[2019-01-25] MEDS: HEPARIN SOD (PORCINE) 5,000 UNIT/ML 1 ML VIAL SUBCUT SCH ×2 (05:36→16:45)
[2019-01-25 08:26] LABS: ABSOLUTE EOSINOPHILS # (AUTO) 0.3 10^3/uL (0.0-0.6); ABSOLUTE LYMPHOCYTES (AUTO) 1.5 10^3/uL (0.5-4.7); ABSOLUTE MONOCYTES (AUTO) 0.4 10^3/uL (0.1-1.4); ABSOLUTE NEUT (AUTO) 2.7 10^3/uL (1.7-8.2); BASOPHILS % (AUTO) 0.8 % (0-2); EOSINOPHILS % (AUTO) 5.3 % (0-6); HEMATOCRIT 22.6 % (37.9-51.0); LYMPHOCYTES % (AUTO) 30.2 % (13-45); MEAN CORPUSCULAR HEMOGLOBIN 29.3 pg (27.0-33.4); MEAN CORPUSCULAR VOLUME 86 fl (80-97); MONOCYTES % (AUTO) 8.5 % (3-13); PLATELET COUNT 168 10^3/uL (150-450); RED BLOOD COUNT 2.62 10^6/uL (4.35-5.55); RED CELL DISTRIBUTION WIDTH 13.7 % (11.5-14.0); SEGMENTED NEUTROPHILS % (AUTO) 55.2 % (42-78); TOTAL CELLS COUNTED % (AUTO) 100 %; WHITE BLOOD COUNT 4.9 10^3/uL (4.0-10.5)
[2019-01-25 08:37] LABS: HEMOGLOBIN 7.7 g/dL (13.5-17.0)
[2019-01-25 09:02] LABS: BLOOD UREA NITROGEN 20 mg/dL (7-20); CALCIUM 8.2 mg/dL (8.4-10.2); CARBON DIOXIDE 26 mmol/L (22-30); GLUCOSE 78 mg/dL (75-110); POTASSIUM 4.6 mmol/L (3.6-5.0)
[2019-01-25] MEDS: INSULIN GLARGINE,HUM.REC.ANLOG 1,000 UNIT/10 ML VIAL SUBCUT SCH (09:11)
[2019-01-25] MEDS: FUROSEMIDE 40 MG TABLET PO SCH (09:11)
[2019-01-25] MEDS: INSULIN LISPRO 100 UNIT/ML 3 ML VIAL SUBCUT SCH ×3 (09:11→16:39)
[2019-01-25] MEDS: FAMOTIDINE 20 MG TABLET PO SCH (09:12)
[2019-01-25] MEDS: SACUBITRIL/VALSARTAN 49 MG/51 MG TABLET PO SCH (09:12)
[2019-01-25] MEDS: FERROUS SULFATE LIQUID 300 MG/5 ML UDC PO SCH (09:12)
[2019-01-25] MEDS: ASPIRIN 81 MG TABLET, ENT COATED PO SCH (09:12)
[2019-01-25] MEDS: CLOPIDOGREL BISULFATE 75 MG TABLET PO SCH (09:12)
[2019-01-25] MEDS: CARVEDILOL 12.5 MG TABLET PO SCH (09:12)
[2019-01-25] MEDS: LEVETIRACETAM 500 MG TABLET PO SCH (09:12)
[2019-01-25] MEDS: CILOSTAZOL 100 MG TABLET PO SCH ×2 (09:12→16:45)
[2019-01-25 09:20] LABS: CHLORIDE 112 mmol/L (98-107)
[2019-01-25 09:25] LABS: ANION GAP 6 (5-19)
--- NOTE | 2019-01-25 12:40 | PDOC PROGRESS REPORT ---
Subjective Progress Note for:: 01/25/19 Subjective:: Patient is hemodynamically stable and has not had any seizure episodes. His oral intake is poor because he said he does not like the food here. He is producing urine output although not a lot. He does not have any specific complaints. Reason For Visit: SEIZURE,POSSIBLE RECURRENT UTI,ACUTE ON CHRONIC Physical Exam Vital Signs: Temp Pulse Resp BP Pulse Ox 97.4 F 56 L 18 180/89 H 96 01/25/19 07:16 01/25/19 07:16 01/25/19 07:16 01/25/19 07:16 01/25/19 07:16 Intake & Output 01/24/19 01/25/19 01/26/19 06:59 06:59 06:59 Intake Total 1579 3934 Output Total 625 625 Balance 954 3309 Weight 75.4 kg 75.4 kg Exam: General appearance: PRESENT: no acute distress, cooperative, well-developed, well-nourished Head exam: PRESENT: atraumatic, normocephalic Eye exam: PRESENT: conjunctiva pale, PERRLA. ABSENT: scleral icterus Neck exam: ABSENT: JVD Respiratory exam: PRESENT: Normal breath sounds. ABSENT: crackles, rales, rhonchi, unlabored, wheezes Cardiovascular exam: PRESENT: Regular rate rhythm -+S1, +S2. ABSENT: diastolic murmur, systolic murmur GI/Abdominal exam: PRESENT: normal bowel sounds, soft. ABSENT: guarding, mass, tenderness Extremities exam: ABSENT: No edema Neurological exam: PRESENT: alert, awake, oriented to person, place and time. He has his baseline dysarthria. Skin exam: PRESENT: dry, warm, Cardiovascular exam: PRESENT: +S1, +S2 GI/Abdominal exam: PRESENT: normal bowel sounds, organomegaly, soft. ABSENT: tenderness Results Laboratory Results: 01/25/19 07:25 01/25/19 07:25 01/25/19 01/25/19 07:25 07:25 WBC 4.9 RBC 2.62 L Hgb 7.7 L Hct 22.6 L MCV 86 MCH 29.3 MCHC 34.0 RDW 13.7 Plt Count 168 Seg Neutrophils % 55.2 Sodium 143.8 Potassium 4.6 Chloride 112 H Carbon Dioxide 26 Anion Gap 6 BUN 20 Creatinine 2.29 H Est GFR ( Amer) 35 L Glucose 78 Calcium 8.2 L 01/21/19 03:56 NT-Pro-B Natriuret Pep 422 Impressions: Head CT 01/20/19 14:52 IMPRESSION: No acute intracranial pathology. Unchanged right occipital infarction. EVIDENCE OF ACUTE STROKE: NO. Chest X-Ray 01/20/19 14:53 IMPRESSION: NO SIGNIFICANT RADIOGRAPHIC FINDING IN THE CHEST. Modified Barium Swallow 01/22/19 00:00 IMPRESSION: LARYNGEAL PENETRATION AND ASPIRATION OF THIN LIQUIDS. . PLEASE SEE SPEECH PATHOLOGIST REPORT FOR OTHER FINDINGS AND RECOMMENDATIONS. Renal Ultrasound 01/22/19 00:00 IMPRESSION: NORMAL RENAL AND BLADDER ULTRASOUND. Assessment & Plan - Diagnosis (1) Acute kidney injury superimposed on chronic kidney disease Is this a current diagnosis for this admission?: Yes Plan: Patient is nonoliguric. He is currently back to his baseline kidney function. No further intervention needed at this time. (2) Anemia Qualifiers: Anemia type: due to chronic kidney disease Chronic kidney disease stage: stage 3 (moderate) Qualified Code(s): N18.3 - Chronic kidney disease, stage 3 (moderate); D63.1 - Anemia in chronic kidney disease; D63.1 - Anemia in chronic kidney disease Is this a current diagnosis for this admission?: Yes Plan: Adequate iron stores. Epogen was ordered last Friday but I did not see that it was given. I will give him a dose of Procrit at 20,000 units x 1 dose today. Check stool for occult blood. (3) Seizure disorder Is this a current diagnosis for this admission?: Yes Plan: Per hospitalist service. (4) Dysarthria Is this a current diagnosis for this admission?: Yes Plan: Baseline from previous CVA. (5) Chronic diastolic CHF (congestive heart failure) Is this a current diagnosis for this admission?: Yes (6) HTN (hypertension) Qualifiers: Hypertension type: essential hypertension Qualified Code(s): I10 - Essential (primary) hypertension Is this a current diagnosis for this admission?: Yes Plan: Usually acceptable control. (7) History of CVA with residual deficit Is this a current diagnosis for this admission?: Yes (8) Type 2 diabetes mellitus Qualifiers: Diabetes mellitus fpc insulin use: with fpc use Chronic kidney disease stage: stage 3 (moderate) Is this a current diagnosis for this admission?: Yes - Time Time with patient: 15-25 minutes
[2019-01-25] MEDS ORDERED: EPOETIN ALFA-EPBX 20,000 UNITS (ESRD) in SYRINGE IV ONE (15:00)
[2019-01-25] MEDS ORDERED: EPOETIN ALFA-EPBX 10,000 UNIT/ML VIAL (NON-ESRD) SUBCUT ONE (15:00)
--- NOTE | 2019-01-25 15:05 | PDOC DISCHARGE SUMMARY ---
Impression - Admit/DC Date/PCP Admission Date/Primary Care Provider: 01/20/19 17:31 LEXUS GARCIA MD Discharge Date: 01/25/19 - Discharge Diagnosis (1) Acute kidney injury superimposed on chronic kidney disease Is this a current diagnosis for this admission?: Yes (2) Dysarthria Is this a current diagnosis for this admission?: Yes (3) Dehydration Is this a current diagnosis for this admission?: Yes (4) HTN (hypertension) Is this a current diagnosis for this admission?: Yes (5) Seizure Is this a current diagnosis for this admission?: Yes (6) Urinary tract infection Is this a current diagnosis for this admission?: Yes (7) Status post CVA Is this a current diagnosis for this admission?: Yes (8) Hypertension Is this a current diagnosis for this admission?: Yes - Assessment Summary: Seizure disorder-family states that the patient had a seizure at home and refused to come to the emergency department. He did go to the primary care office and they referred him to the emergency department. When he arrived he had a seizure in the emergency department as well. The initial seizure lasted approximately 4 to 5 minutes. Second seizure lasted approximately 1 minute. Family reports that the eyes rolled into the back of his head. There was no tonic-clonic activity but he does have a blank stare and did not respond to stimuli. He does have a history of seizures. He is currently on Keppra 500 mg twice daily which is in fact, considering his renal failure, is at the upper end of the treatment range. We will continue the 500 mg twice daily. I have ordered an EEG as well. The seizures could be related to a previous infarct which is the most likely cause. In addition the family does report that at home his blood pressure reached systolic of greater than 200 and this could certainly cause seizure as well. CT scan of the brain reveals right occipital enc ephalomalacia from previous stroke but no acute infarct. Acute on chronic kidney failure-the patient's GFR today is 19. He is usually a stage III kidney failure. Most likely etiology is diabetes however he also has hypertension. His furniture upholsterer, Dr. Taylor, is aware that he is coming to the emergency department and I will ask him to consult on the patient. I do believe the patient is dry. Is been taking Lasix 40 mg twice daily. He does have 18 hyaline casts per low power field in his urine. I will change his Lasix to once daily starting tomorrow and I will administer 1 L of fluid tonight. Acute urinary tract infection-the patient was just discharged last week with acute urinary infection. He was on Bactrim and ciprofloxacin. Urinalysis does show white cells with trace bacteria and budding yeast. He did not complete his antibiotic therapy from recent discharge as it was felt the antibiotics were causing altered mental status. He has been off of the antibiotics since . Urine and blood cultures have been requested. Hypertension-in the emergency department his blood pressure was in fact normal. We will continue his current regimen (verified from the prescription bottles brought in by the family) with parameters to hold for low pulse or low blood pressure. Altered mental status-the patient was post-ictal and this likely was the main reason for the encephalopathy. He in fact is back at his baseline at this time. Other contributing factors would be the acute on chronic kidney failure and possible recurrent cystitis. Sub-conjunctival hemorrhage right eye-most likely from acute spike in blood pressure. The family reports no coughing. He did not exhibit tonic clonic activity. We will apply eyedrops for moisture. Continue to monitor blood pressure. Pressure ulcer left heel. The patient is seeing Dr. Aggarwal at the wound care center. He does have an appointment tomorrow. I will reach out to Dr. Aggarwal and see if he would consider consult at this facility. We will use Xeroform and gauze for now. We do not have collagen products and so simple dressings will have to suffice. The patient did have Doppler studies of his legs and there is decreased circulation. See discussion below. Peripheral arterial disease-Doppler studies show normal waveform and flow from the femoral to popliteal arteries. After the popliteal arteries there is dimi nished circulation in each leg. There is decreased flow and on the right leg there was no posterior tibial circulation identifiable. We will continue Plavix and Pletal at this time. He is also on statin therapy. Chronic diastolic heart failure-in 2019 the echocardiogram revealed an ejection fraction of 60% with 1/4 diastolic failure and mild mitral regurgitation and trace tricuspid regurgitation. We will continue his current regimen which includes Coreg, Entresto, furosemide as well as the Plavix, Pletal and atorvastatin. He is also on 81 mg of aspirin daily. We will monitor intake and output. Because I believe he is on the dry side I will hold furosemide tonight. He will get 1 L of IV fluids and will resume furosemide at 40 mg once daily starting tomorrow. Diabetes mellitus type 2-we will continue Lantus 15 units each morning and sliding scale coverage. He will be on a diabetic cardiac diet. Dysarthria-this is from his recent ischemic stroke. He states that his tongue feels like it is getting cut or feels like a piece of meat. His tongue is not swollen but it does appear dry. It also affects his speech. He has been getting physical therapy and speech therapy at home. We will continue these therapeutic modalities as an inpatient. 01/21/2019 patient CBC appears to be normal, sodium 142 potassium 4.6 BUN is elevated at 42 creatinine 3.54 GFR is 21. Renal functions are slightly better than yesterday not much. Her graph hemoglobin A1c is 6.6 calcium 8.4 phosphorus 3.2 magnesium slightly high at 2.5 albumin low at 3.2. Urinalysis shows moderate leukocytes ,urine and blood cultures are pending. Chest x-ray from yesterday is negative. CT head scan showed an old infarct in the right occipital region but no acute stroke Appears as though patient suffered a breakthrough and his seizure disorder and will check a Keppra level. Treat him for UTI 01/22/2019 Vital signs today are stable patient's O2 sat 97% on room air pulse is 66 and regular. Blood pressure approximately 150/80. Patient remains afebrile CBC shows a normal white count H&H is stable accounting for hydration. BUN on admission was 44 today is 33, creatinine on admission was 3.8 today is 2.5 Keppra level is pending. Patient currently taking Keppra 500 every 12 hours. Currently no antibiotics 01/23/2019 he has had no further seizures vital signs are stable glucose levels are stable Keppra level is 45 which is on the high side of normal. Will not change his dosage. Urine culture shows Sienna albicans, patient does not have a Sullivan and does not appear to be symptomatic therefore will not treat this. anticipate discharge next day or 2 01/24/2019 see the note dictated at the beginning of this day's progress note Urine culture pending 01/25/2019 Is being discharged today on his regular medications, that is his Keppra 500twice daily as well as his other medicines. Patient not sent home on any antibiotics Today is white counts 4900 H&H is drifted down to 7.7 and 22.6 Chemistry shows sodium 143 potassium 4.6 BUN of 20 creatinine is down to 2.29 GFR of 35. Glucose today is 78 Patient is medically stable discharge home. His family want him to go home. Urine culture on 01 20 showed Sienna albicans. Urine culture from yesterday is pending and I called the lab today and they have no report. Ever it was Cipro and Bactrim which lowered his seizure threshold and make him sees and come to the ER on this occasion - Additional Information Resuscitation Status: Do Not Resuscitate Discharge Diet: As Tolerated Discharge Activity: Balance Activity w/Rest Referrals: WOUND CARE [Outside] - 02/04/19 1:30 pm LEXUS GARCIA MD [Primary Care Provider] - 02/01/19 2:00 pm ( ) INES THIBODEAUX MD [ACTIVE STAFF] - 01/28/19 10:30 am Home Medications: Aspirin [Ecotrin 81 mg EC Tablet] 81 mg PO DAILY 01/13/19 Atorvastatin Calcium [Lipitor 80 mg Tablet] 80 mg PO QHS 01/13/19 Carvedilol [Coreg 25 mg Tablet] 25 mg PO Q12 01/13/19 Cilostazol [Pletal 100 mg Tablet] 100 mg PO BID 01/13/19 Clopidogrel Bisulfate [Plavix 75 mg Tablet] 75 mg PO DAILY 01/13/19 Ferrous Sulfate [Feosol 325 mg Tablet] 325 mg PO DAILY 01/13/19 Furosemide [Lasix 40 mg Tablet] 40 mg PO BID 01/13/19 Insulin Aspart [Novolog Insulin (Aspart) 100 unit/mL] 0 unit SQ .SLIDING SCALE 01/13/19 Insulin Glargine,Hum.rec.anlog [Basaglar Kwikpen U-100] 15 unit SQ DAILY 01/13/19 Levetiracetam [Keppra 500 mg Tablet] 500 mg PO Q12 01/13/19 Multivitamin [Tab-A-Alyce (Multiple Vitamin) Tablet] 1 tab PO DAILY 01/13/19 Sacubitril/Valsartan [Entresto 49 mg/51 mg Tablet] 1 tab PO Q12 01/13/19 Aspirin [Ecotrin 81 mg EC Tablet] 81 mg PO DAILY tabec 01/25/19 Atorvastatin Calcium [Lipitor 80 mg Tablet] 80 mg PO QHS tablet 01/25/19 Carboxymethylcellulose Sodium [Refresh Plus 0.5% Oph Soln 0.4 ml Droperette] 1 drop OU QIDP PRN droperette 01/25/19 Carvedilol [Coreg 12.5 mg Tablet] 25 mg PO Q12 tablet 01/25/19 Cilostazol [Pletal 100 mg Tablet] 100 mg PO BIDACBS tablet 01/25/19 Clopidogrel Bisulfate [Plavix 75 mg Tablet] 75 mg PO DAILY tablet 01/25/19 Ferrous Sulfate [Ferrous Sulfate Liquid 300 mg/5 ml Udcup] 300 mg PO DAILY udc 01/25/19 Levetiracetam [Keppra 500 mg Tablet] 500 mg PO Q12 tablet 01/25/19 Sacubitril/Valsartan [Entresto 49 mg/51 mg Tablet] 1 tab PO BID tablet 01/25/19 History of Present Illiness History of Present Illness: MORELIA THIBODEAUX is a 68 year old male Physical Exam Vital Signs: Temp Pulse Resp BP Pulse Ox 98.1 F 53 L 18 159/70 H 97 01/25/19 12:00 01/25/19 12:00 01/25/19 12:00 01/25/19 12:00 01/25/19 12:00 Intake & Output 01/24/19 01/25/19 01/26/19 06:59 06:59 06:59 Intake Total 1579 3934 Output Total 625 625 Balance 954 3309 Weight 75.4 kg 75.4 kg Results Laboratory Results: WBC 4.9 10^3/uL (4.0-10.5) 01/25/19 07:25 RBC 2.62 10^6/uL (4.35-5.55) L 01/25/19 07:25 Hgb 7.7 g/dL (13.5-17.0) L 01/25/19 07:25 Hct 22.6 % (37.9-51.0) L 01/25/19 07:25 MCV 86 fl (80-97) 01/25/19 07:25 MCH 29.3 pg (27.0-33.4) 01/25/19 07:25 MCHC 34.0 g/dL (32.0-36.0) 01/25/19 07:25 RDW 13.7 % (11.5-14.0) 01/25/19 07:25 Plt Count 168 10^3/uL (150-450) 01/25/19 07:25 Lymph % (Auto) 30.2 % (13-45) 01/25/19 07:25 [place] % (Auto) 8.5 % (3-13) 01/25/19 07:25 Eos % (Auto) 5.3 % (0-6) 01/25/19 07:25 Baso % (Auto) 0.8 % (0-2) 01/25/19 07:25 Reticulocyte # 0.029 10^6/uL (0.028-0.122) 01/22/19 03:51 Absolute Neuts (auto) 2.7 10^3/uL (1.7-8.2) 01/25/19 07:25 Absolute Lymphs (auto) 1.5 10^3/uL (0.5-4.7) 01/25/19 07:25 Absolute Monos (auto) 0.4 10^3/uL (0.1-1.4) 01/25/19 07:25 Absolute Eos (auto) 0.3 10^3/uL (0.0-0.6) 01/25/19 07:25 Absolute Basos (auto) 0.0 10^3/uL (0.0-0.2) 01/25/19 07:25 Seg Neutrophils % 55.2 % (42-78) 01/25/19 07:25 Retic Count (auto) 0.99 % (0.66-2.85) 01/22/19 03:51 Sodium 143.8 mmol/L (137-145) 01/25/19 07:25 Potassium 4.6 mmol/L (3.6-5.0) 01/25/19 07:25 Chloride 112 mmol/L (98-107) H 01/25/19 07:25 Carbon Dioxide 26 mmol/L (22-30) 01/25/19 07:25 Anion Gap 6 (5-19) 01/25/19 07:25 BUN 20 mg/dL (7-20) 01/25/19 07:25 Creatinine 2.29 mg/dL (0.52-1.25) H 01/25/19 07:25 Est GFR ( Amer) 35 (>60) L 01/25/19 07:25 Est GFR (MDRD) Non-Af 29 (>60) L 01/25/19 07:25 Glucose 78 mg/dL (75-110) 01/25/19 07:25 POC Glucose 72 mg/dL (70-110) 01/25/19 10:55 Hemoglobin A1c % 6.6 % (4.7-6.0) H 01/21/19 03:56 Calcium 8.2 mg/dL (8.4-10.2) L 01/25/19 07:25 Phosphorus 3.2 mg/dL (2.5-4.5) 01/21/19 03:56 Magnesium 2.5 mg/dL (1.6-2.3) H 01/21/19 03:56 Iron 89.9 ug/dL (49-181) 01/22/19 03:51 TIBC 213 ug/dL (250-450) L 01/22/19 03:51 % Saturation 42 % 01/22/19 03:51 Ferritin 386.00 ng/mL (17.9-464.0) 01/22/19 03:51 Total Bilirubin 0.3 mg/dL (0.2-1.3) 01/20/19 14:47 Direct Bilirubin 0.1 mg/dL (0.0-0.4) 01/20/19 14:47 Neonat Total Bilirubin Not Reportable 01/20/19 14:47 Neonat Direct Bilirubin Not Reportable 01/20/19 14:47 Neonat Indirect Bili Not Reportable 01/20/19 14:47 AST 38 U/L (17-59) 01/20/19 14:47 ALT 23 U/L (<50) 01/20/19 14:47 Alkaline Phosphatase 104 U/L (38-126) 01/20/19 14:47 NT-Pro-B Natriuret Pep 422 pg/mL (5-900) 01/21/19 03:56 Total Protein 7.0 g/dL (6.3-8.2) 01/20/19 14:47 Albumin 3.2 g/dL (3.5-5.0) L 01/21/19 03:56 Triglycerides 24 mg/dL (<150) 01/21/19 03:56 Cholesterol 78.55 mg/dL (0-200) 01/21/19 03:56 LDL Cholesterol Direct 34 mg/dL (<100) 01/21/19 03:56 VLDL Cholesterol 5.0 mg/dL (10-31) L 01/21/19 03:56 HDL Cholesterol 40 mg/dL (>40) 01/21/19 03:56 Vitamin B12 779.0 pg/mL (239-931) 01/22/19 03:51 Folate > 20.00 ng/mL (>2.76) 01/22/19 03:51 Urine Color YELLOW 01/20/19 15:30 Urine Appearance SLIGHTLY-CLOUDY 01/20/19 15:30 Urine pH 5.0 (5.0-9.0) 01/20/19 15:30 Ur Specific [place] 1.012 01/20/19 15:30 Urine Protein NEGATIVE mg/dL (NEGATIVE) 01/20/19 15:30 Urine Glucose (UA) NEGATIVE mg/dL (NEGATIVE) 01/20/19 15:30 Urine Ketones NEGATIVE mg/dL (NEGATIVE) 01/20/19 15:30 Urine Blood NEGATIVE (NEGATIVE) 01/20/19 15:30 Urine Nitrite NEGATIVE (NEGATIVE) 01/20/19 15:30 Urine Bilirubin NEGATIVE (NEGATIVE) 01/20/19 15:30 Urine Urobilinogen NEGATIVE mg/dL (<2.0) 01/20/19 15:30 Ur Leukocyte Esterase MODERATE (NEGATIVE) H 01/20/19 15:30 Urine WBC (Auto) 44 /HPF 01/20/19 15:30 Urine RBC (Auto) 2 /HPF 01/20/19 15:30 U Hyaline Cast (Auto) 18 /LPF 01/20/19 15:30 Urine Bacteria (Auto) TRACE /HPF 01/20/19 15:30 Squamous Epi Cells Auto 1 /HPF 01/20/19 15:30 Urine Mucus (Auto) RARE /LPF 01/20/19 15:30 Urine Yeast (Budding) PRESENT /HPF 01/20/19 15:30 Urine Ascorbic Acid NEGATIVE (NEGATIVE) 01/20/19 15:30 Levetiracetam 45.6 ug/mL (10.0-40.0) H 01/21/19 12:09 01/21/19 03:56 NT-Pro-B Natriuret Pep 422 Impressions: Head CT 01/20/19 14:52 IMPRESSION: No acute intracranial pathology. Unchanged right occipital infarction. EVIDENCE OF ACUTE STROKE: NO. Chest X-Ray 01/20/19 14:53 IMPRESSION: NO SIGNIFICANT RADIOGRAPHIC FINDING IN THE CHEST. Modified Barium Swallow 01/22/19 00:00 IMPRESSION: LARYNGEAL PENETRATION AND ASPIRATION OF THIN LIQUIDS. . PLEASE SEE SPEECH PATHOLOGIST REPORT FOR OTHER FINDINGS AND RECOMMENDATIONS. Renal Ultrasound 01/22/19 00:00 IMPRESSION: NORMAL RENAL AND BLADDER ULTRASOUND. Stroke Is this a Stroke Patient?: No Acute Heart Failure - Is this a Heart Failure Patient?: No
[2019-01-25 17:32] VITALS: BP 159/70
== END 2019-01-25 18:42 | disposition home health service (06) | DRG 101 ==
LOC: ER 14:33 → EH 17:31 → 4W 20:24
PROVIDERS: ADMIT Hospitalist; ATTEND Hospitalist
DX: G40.909 Epilepsy, unspecified, not intractable, without status epilepticus (principal); N39.0 Urinary tract infection, site not specified; N17.9 Acute kidney failure, unspecified; I13.0 Hypertensive heart and chronic kidney disease with heart failure and stage 1 through stage 4 chronic kidney disease, or unspecified chronic kidney disease; I50.32 Chronic diastolic (congestive) heart failure; E86.0 Dehydration; H11.31 Conjunctival hemorrhage, right eye; N18.3 Chronic kidney disease, stage 3 (moderate); L89.629 Pressure ulcer of left heel, unspecified stage; E11.22 Type 2 diabetes mellitus with diabetic chronic kidney disease; I08.1 Rheumatic disorders of both mitral and tricuspid valves; E78.5 Hyperlipidemia, unspecified; I25.10 Atherosclerotic heart disease of native coronary artery without angina pectoris; Z66 Do not resuscitate; J44.9 Chronic obstructive pulmonary disease, unspecified; K21.9 Gastro-esophageal reflux disease without esophagitis; Z60.2 Problems related to living alone; E11.51 Type 2 diabetes mellitus with diabetic peripheral angiopathy without gangrene; E78.00 Pure hypercholesterolemia, unspecified; I69.322 Dysarthria following cerebral infarction; Z23 Encounter for immunization; Z79.899 Other long term (current) drug therapy; Z79.4 Long term (current) use of insulin; Z79.82 Long term (current) use of aspirin; Z79.02 Long term (current) use of antithrombotics/antiplatelets; Z86.14 Personal history of Methicillin resistant Staphylococcus aureus infection; Z88.0 Allergy status to penicillin; Z83.3 Family history of diabetes mellitus; Z82.49 Family history of ischemic heart disease and other diseases of the circulatory system
CPT/HCPCS: 36415; 70450; 71045; 74230; 76775; 80048; 80053; 80061; 80069; 80177; 81001; 82607; 82728; 82746; 82962; 83036; 83540; 83550; 83735; 83880; 83970; 84100; 85025; 85027; 85045; 87040; 87086; 87088; 87186; 90686; 93005; 93010; 93922; 93925; 95819; 99285; J1644; J1815; J1956; J3490; J7030; Q5105

== ENCOUNTER → 2019-03-08 | Outpatient (CLI) | payer MEDICARE ==
--- NOTE | 2019-03-08 15:13 | RADIOLOGY REPORT (SQ) ---
EXAM DESCRIPTION: FOOT BILATERAL 3 VIEWS COMPLETED DATE/TIME: 03/08/2019 3:00 pm REASON FOR STUDY: NON PRESSURE ULCER OF ANN HEEL AND MIDFOOT WITH FAT LAYER EXPOSED L97.422 NON-PRS CHR ULCER OF LEFT HEEL AND MIDFOOT W FAT LAY L97.412 NON-PRS CHR ULCER OF RIGHT HEEL AND MIDFT W FA T LAYE E11.621 TYPE 2 DIABETES MELLITUS WITH FOOT ULCER COMPARISON: None. NUMBER OF VIEWS: Three views. TECHNIQUE: AP, lateral and oblique radiographic images acquired of the right and left foot. LIMITATIONS: None. FINDINGS: RIGHT MINERALIZATION: Normal. BONES: No acute fracture or dislocation. Prominent plantar calcaneal spur. JOINTS: There is a talocalcaneal coalition across the posterior subtalar joint. Bulky anterior osteo phyte formation at the talonavicular joint. Moderate osteoarthritis at the ankle, intertarsal, and t arsometatarsal joints. Mild hallux valgus deformity SOFT TISSUES: No soft tissue swelling. No foreign body. Soft tissue ulcer along the plantar right h eel region without underlying aggressive bony demineralization of the calcaneus to suggest osteomyeli tis OTHER: No other significant finding. LEFT MINERALIZATION: Normal. BONES: No acute fracture or dislocation. Prominent plantar calcaneal spur JOINTS: There is a talocalcaneal coalition across the posterior subtalar joint. Bulky osteophyte at the talonavicular joint. Marked osteoarthritis at the ankle, and intertarsal joints. Moderate osteo arthritis at the tarsometatarsal joints. SOFT TISSUES: No soft tissue swelling. No foreign body. Soft tissue ulcer along the lateral aspect of the left heel. No gross bony demineralization worrisome for osteomyelitis OTHER: No other significant finding. IMPRESSION: Bilateral soft tissue foot ulcers without aggressive bony demineralization to suggest os teomyelitis. 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 TECHNICAL DOCUMENTATION: JOB ID: [id number] [employer]- All Rights Reserved Reading location - IP/workstation name: [email or web address]
[2019-03-08 15:50] LABS: ABSOLUTE BASOPHILS # (AUTO) 0.1 10^3/uL (0.0-0.2); ABSOLUTE EOSINOPHILS # (AUTO) 0.3 10^3/uL (0.0-0.6); ABSOLUTE LYMPHOCYTES (AUTO) 1.5 10^3/uL (0.5-4.7); ABSOLUTE MONOCYTES (AUTO) 0.4 10^3/uL (0.1-1.4); ABSOLUTE NEUT (AUTO) 3.7 10^3/uL (1.7-8.2); BASOPHILS % (AUTO) 0.9 % (0-2); EOSINOPHILS % (AUTO) 5.7 % (0-6); HEMATOCRIT 31.8 % (37.9-51.0); HEMOGLOBIN 10.8 g/dL (13.5-17.0); LYMPHOCYTES % (AUTO) 25.3 % (13-45); MEAN CORPUSCULAR HEMOGLOBIN 29.4 pg (27.0-33.4); MEAN CORPUSCULAR VOLUME 87 fl (80-97); MONOCYTES % (AUTO) 6.3 % (3-13); PLATELET COUNT 239 10^3/uL (150-450); RED BLOOD COUNT 3.67 10^6/uL (4.35-5.55); RED CELL DISTRIBUTION WIDTH 13.6 % (11.5-14.0); SEGMENTED NEUTROPHILS % (AUTO) 61.8 % (42-78); TOTAL CELLS COUNTED % (AUTO) 100 %; WHITE BLOOD COUNT 5.9 10^3/uL (4.0-10.5)
[2019-03-08 16:25] LABS: ERYTHROCYTE SEDIMENTATION RATE 74 mm/hr (0-20)
[2019-03-08 16:51] LABS: ALBUMIN 4.1 g/dL (3.5-5.0); ALKALINE PHOSPHATASE 125 U/L (38-126); ANION GAP 12 (5-19); ASPARTATE AMINO TRANSFERASE 41 U/L (17-59); BILIRUBIN,DIRECT 0.2 mg/dL (0.0-0.4); BILIRUBIN,TOTAL 0.5 mg/dL (0.2-1.3); BLOOD UREA NITROGEN 34 mg/dL (7-20); C-REACTIVE PROTEIN 8.2 mg/L (<10.0); CALCIUM 9.2 mg/dL (8.4-10.2); CARBON DIOXIDE 26 mmol/L (22-30); CHLORIDE 107 mmol/L (98-107); GLUCOSE 117 mg/dL (75-110); POTASSIUM 4.1 mmol/L (3.6-5.0); TOTAL PROTEIN 7.8 g/dL (6.3-8.2)
== END ==
LOC: WC 14:22
PROVIDERS: ATTEND Preventive Medicine Undersea and Hyperbaric Medicine
DX: E11.621 Type 2 diabetes mellitus with foot ulcer (principal); L97.422 Non-pressure chronic ulcer of left heel and midfoot with fat layer exposed; L97.412 Non-pressure chronic ulcer of right heel and midfoot with fat layer exposed; M77.31 Calcaneal spur, right foot
CPT/HCPCS: 36415; 80053; 83036; 85025; 85652; 86140

== ENCOUNTER → 2019-03-08 | Outpatient (CLI) | payer MEDICARE ==
[2019-03-08 16:11] LABS: ABSOLUTE BASOPHILS # (AUTO) 0.1 10^3/uL (0.0-0.2); ABSOLUTE EOSINOPHILS # (AUTO) 0.3 10^3/uL (0.0-0.6); ABSOLUTE LYMPHOCYTES (AUTO) 1.5 10^3/uL (0.5-4.7); ABSOLUTE MONOCYTES (AUTO) 0.4 10^3/uL (0.1-1.4); ABSOLUTE NEUT (AUTO) 3.7 10^3/uL (1.7-8.2); BASOPHILS % (AUTO) 0.9 % (0-2); EOSINOPHILS % (AUTO) 5.7 % (0-6); HEMATOCRIT 31.8 % (37.9-51.0); HEMOGLOBIN 10.8 g/dL (13.5-17.0); LYMPHOCYTES % (AUTO) 25.3 % (13-45); MEAN CORPUSCULAR HEMOGLOBIN 29.4 pg (27.0-33.4); MEAN CORPUSCULAR VOLUME 87 fl (80-97); MONOCYTES % (AUTO) 6.3 % (3-13); PLATELET COUNT 239 10^3/uL (150-450); RED BLOOD COUNT 3.67 10^6/uL (4.35-5.55); RED CELL DISTRIBUTION WIDTH 13.6 % (11.5-14.0); SEGMENTED NEUTROPHILS % (AUTO) 61.8 % (42-78); TOTAL CELLS COUNTED % (AUTO) 100 %; WHITE BLOOD COUNT 5.9 10^3/uL (4.0-10.5)
[2019-03-08 16:14] LABS: ANION GAP 12 (5-19); BLOOD UREA NITROGEN 34 mg/dL (7-20); CALCIUM 9.2 mg/dL (8.4-10.2); CARBON DIOXIDE 26 mmol/L (22-30); CHLORIDE 107 mmol/L (98-107); GLUCOSE 117 mg/dL (75-110); IRON(TIBC) 73.5 ug/dL (49-181); PHOSPHORUS 3.8 mg/dL (2.5-4.5); POTASSIUM 4.1 mmol/L (3.6-5.0)
[2019-03-09 15:25] LABS: APPEARANCE,URINE TURBID; BILIRUBIN,URINE NEGATIVE (NEGATIVE); COLOR,URINE YELLOW; GLUCOSE, URINE NEGATIVE (NEGATIVE); KETONES,URINE NEGATIVE (NEGATIVE); LEUKOCYTE ESTERASE,URINE LARGE (NEGATIVE); NITRITE,URINE NEGATIVE (NEGATIVE); PROTEIN,URINE 100 mg/dL (NEGATIVE); UROBILINOGEN,URINE NEGATIVE mg/dL (<2.0)
[2019-03-09 15:48] LABS: UR PRO/CREAT RATIO RESULT 0.6 mg/mg (0.0-0.2); URINE CREATININE 86.6 mg/dL (22-328); URINE PROTEIN 53.5 mg/dL (<12)
== END ==
LOC: OD 14:14
PROVIDERS: ATTEND Physician Assistant Medical
DX: N18.3 Chronic kidney disease, stage 3 (moderate) (principal); D63.1 Anemia in chronic kidney disease; N39.0 Urinary tract infection, site not specified
CPT/HCPCS: 36415; 81001; 82570; 82728; 83540; 83550; 83970; 84100; 84156; 87086; 87088